=== PATIENT | female | born 1970 ===

== ENCOUNTER 2020-05-09 18:42 | Outpatient (REF) | payer OTHER, SELFPAY ==
--- NOTE | 2020-05-09 18:52 | MR_ITS ---
EXAMINATION: MR KNEE WITHOUT CONTRAST, LEFT CLINICAL INFORMATION: Bilateral primary osteoarthritis of knee. Patient reports bilateral knee pain, instability, swelling, stiffness, no recent injury, and previous meniscus surgery in both knees greater than 10 years ago. COMPARISON: XR left knee 09/26/2019. TECHNIQUE: MRI of the knee without contrast was performed using routine sequences on a high-field scanner. FINDINGS: MENISCI: Medial Meniscus: Intact. Lateral Meniscus: There is minor fraying of the free edge of the body of the lateral meniscus. There is some degenerative intrasubstance signal at the anterior horn/root junction of the lateral meniscus, this includes some linear areas of degenerative signal as well as a possible linear tear extending to the superior surface. This appears to be associated with a small multiloculated parameniscal cyst. There are additional small clustered cysts anterior to the anterior horn extending anterolaterally which could represent extension of parameniscal cyst. LIGAMENTS: Cruciate: Intact. Collateral: Intact. EXTENSOR MECHANISM: Intact. ARTICULAR CARTILAGE/BONE: Patellofemoral Compartment: There is a small focal area of moderate cartilage irregularity and thinning at the junction of the apex and lateral facet of the patella with minor underlying cystic change. There are scattered patchy areas of cartilage surface irregularity in the femoral trochlea with a small focal area of moderate cartilage thinning in the lateral femoral trochlea. Medial Compartment: There are focal areas of mild cartilage surface irregularity and thinning in the medial weightbearing portion of the medial compartment. There is a superiorly projecting posterior osteophyte involving the medial tibial plateau posterior to the posterior horn/root junction of the medial meniscus. Lateral Compartment: There is mild cartilage thinning in the lateral weightbearing portion of the lateral femoral condyle. There is a focal area of mild cartilage thinning at the junction of the posterior weightbearing and nonweightbearing lateral femoral condyle. The lateral tibial plateau cartilage appears intact. The chondrocalcinosis identified on the prior radiographs is not evident on the MRI. JOINT FLUID AND BURSAE: Small joint effusion and small Casillas's cyst. IMPRESSION: 1. Minor fraying of the free edge of the body of the lateral meniscus. Degenerative signal and possible subtle superimposed tear at the anterior horn/root junction of the lateral meniscus. Multiloculated parameniscal cyst extending along the anterolateral meniscus. This raises the suspicion of a meniscal tear. 2. Small focal areas of moderate arthrosis at the junction of the apex and lateral facet of the patella and in the lateral femoral trochlea. 3. Focal mild arthrosis in the medial weightbearing portion of the medial compartment. 4. Focal areas of mild arthrosis in the lateral weightbearing portion of the lateral femoral condyle and the junction of the posterior weightbearing and nonweightbearing lateral femoral condyle. 5. Small joint effusion and small Casillas's cyst.
--- NOTE | 2020-05-09 18:54 | MR_ITS ---
EXAMINATION: MR KNEE WITHOUT CONTRAST, RIGHT CLINICAL INFORMATION: Bilateral primary osteoarthritis of knee. Bilateral knee pain, instability, swelling, stiffness, no recent injury, and prior meniscus surgery on both knees greater than 10 years ago. COMPARISON: XR right knee 09/26/2019. TECHNIQUE: MRI of the knee without contrast was performed using routine sequences on a high-field scanner. FINDINGS: MENISCI: Medial Meniscus: Intact Lateral Meniscus: Intact LIGAMENTS: Cruciate: Intact Collateral: Intact EXTENSOR MECHANISM: Intact ARTICULAR CARTILAGE/BONE: Patellofemoral Compartment: There is a small focal area of mild cartilage thinning in the lateral femoral trochlea with a few tiny subchondral degenerative cysts. There is a suggestion of mild cartilage surface irregularity in the central apex of the patella. Medial Compartment: There is mild cartilage thinning in the posterior weightbearing medial compartment. Lateral Compartment: Normal JOINT FLUID AND BURSAE: Trace joint effusion and tiny Casillas's cyst. IMPRESSION: 1. Small focal areas of mild arthrosis in the central apex of the patella and the lateral femoral trochlea. 2. Mild arthrosis in the posterior weightbearing medial compartment. 3. Trace joint effusion and tiny Casillas's cyst. 4. Intact menisci and ligaments.
== END 2020-05-09 18:43 | disposition home or self-care (01) ==
LOC: HO.MRI 18:42
PROVIDERS: PCP Internal Medicine; Visit Provider Anesthesiology
DX: M17.0 Bilateral primary osteoarthritis of knee (principal)
CPT/HCPCS: 73721

== ENCOUNTER → 2020-05-14 09:27 | Outpatient (BNVA) | payer OTHER, SELFPAY | PROVIDERS: PCP Internal Medicine; Referring Provider Internal Medicine; Visit Provider Psychiatry & Neurology Neurology | DX: G47.33 Obstructive sleep apnea (adult) (pediatric) (principal) | CPT/HCPCS: 99214 ==

== ENCOUNTER → 2020-06-10 08:32 | Outpatient (BNVA) | payer OTHER, SELFPAY | PROVIDERS: PCP Internal Medicine; Referring Provider Internal Medicine; Visit Provider Orthopaedic Surgery | DX: M17.0 Bilateral primary osteoarthritis of knee (principal); M79.7 Fibromyalgia; E11.9 Type 2 diabetes mellitus without complications | CPT/HCPCS: 20610; 99202; J1100 ==

== ENCOUNTER → 2020-09-12 09:55 | Outpatient (BNVA) | payer OTHER, SELFPAY | PROVIDERS: Visit Provider Orthopaedic Surgery | DX: M17.10 Unilateral primary osteoarthritis, unspecified knee (principal); M79.7 Fibromyalgia | CPT/HCPCS: 99212 ==

== ENCOUNTER → 2020-12-16 10:01 | Outpatient (BNVA) | payer OTHER, SELFPAY | PROVIDERS: PCP Internal Medicine; Visit Provider Internal Medicine | DX: E11.9 Type 2 diabetes mellitus without complications (principal); R42 Dizziness and giddiness | CPT/HCPCS: 82947; 99202 ==

== ENCOUNTER 2020-12-16 10:46 | Emergency (ER) | payer OTHER, SELFPAY ==
[2020-12-16 10:56] VITALS: BP 124/76; RESP 93; TEMP 36.8; O2SAT 99; BMI 28.8
--- NOTE | 2020-12-16 12:00 | ECG_ITS ---
Test Reason : WEAKNESS Blood Pressure : / mmHG Vent. Rate : 097 BPM Atrial Rate : 097 BPM P-R Int : 136 ms QRS Dur : 080 ms QT Int : 356 ms P-R-T Axes : 058 023 013 degrees QTc Int : 452 ms Normal sinus rhythm Normal ECG When compared with ECG of 07-FEB-2020 12:48, No significant change was found Referred By: Generic ED Physician Electronically Signed By:JOS RODRÍGUEZ
[2020-12-16 13:06] LABS: MANUAL DIFF FLAG NO
[2020-12-16 13:12] LABS: Basophils Absolute Auto 0.1 X10*3/uL (0.0-0.2); Basophils Percent Auto 0.3 % (0-2); Eosinophils Absolute Auto 0.3 X10*3/uL (0.0-0.4); Eosinophils Percent Auto 1.7 % (0-4); Hematocrit 49.8 % (37-47); Hemoglobin 16.6 g/dl (12.0-16.0); Imm Gran Abs Auto 0.05 X10*3/uL (0.00-0.03); Imm Gran Pct Auto 0.3 % (0.0-0.4); Lymphocytes Absolute Auto 2.2 X10*3/uL (1.2-4.9); Lymphocytes Percent Auto 14.7 % (20-40); Mean Corpuscular HGB Conc 33.3 g/dl (31.0-35.0); Mean Corpuscular Hemoglobin 26.7 pg (27.0-33.0); Mean Corpuscular Volume 80.1 fL (80-98); Mean Platelet Volume 11.2 fL (9.4-12.3); Monocytes Absolute Auto 0.6 X10*3/uL (0.1-1.2); Monocytes Percent Auto 3.9 % (2-11); Neutrophils Percent Auto 79.1 % (45-73); Platelet Count 231 X10*3/uL (160-400); Red Blood Count 6.22 X10*6/uL (4.20-5.50); Red Cell Distribution Width 13.3 % (11.0-16.0); White Blood Count 15.2 X10*3/uL (4.8-10.8)
[2020-12-16 13:39] LABS: Anion Gap 13 (12-20); Blood Urea Nitrogen 5 mg/dL (9-16); Calcium 9.8 mg/dL (8.4-10.2); Carbon Dioxide 30 mmol/L (22-29); Chloride 98 mmol/L (96-108); Creatinine Clr Calc Pharmacy 85.2; Estimated Glomerular Filt Rate > 60; Glucose Random 373 mg/dL (60-115); Potassium 4.1 mmol/L (3.3-5.1); Sodium 137 mmol/L (135-145)
--- NOTE | 2020-12-16 15:50 | ED.GENADULT ---
HPI - General Adult General Chief complaint: Dizziness Stated complaint: HIGH BLOOD SUGAR Time Seen by Provider: 12/16/20 14:06 Source: patient Mode of arrival: ambulatory Limitations: no limitations History of Present Illness HPI narrative: 50-year-old female sent from PCP office for further evaluation of high blood sugar. 50-year-old female with history of type 2 diabetes mellitus, patient is taking Trulicity/Lantus 34 units b.i.d. and on Humalog sliding scale. Patient admitted that she is not compliant with her medications. Patient overall feeling dizzy, with polyuria and polydipsia. In the emergency department patient has high blood sugar of 300 but no anion gap or no indication for DKA. Related Data Home Medications Medication Instructions Recorded Confirmed albuterol sulfate mg INHALATION TID 06/10/20 12/16/20 aspirin 81 mg tablet,delayed 81 mg PO DAILY 06/10/20 12/16/20 release atorvastatin 80 mg tablet 80 mg PO DAILY 06/10/20 12/16/20 blood-glucose meter #1 ea 06/10/20 12/16/20 cyclobenzaprine 10 mg tablet 10 mg PO TID 06/10/20 12/16/20 dulaglutide 0.75 mg/0.5 mL 0.75 mg SUBCUT QWEEK 06/10/20 12/16/20 subcutaneous pen injector duloxetine 20 mg capsule,delayed 20 mg PO BID 06/10/20 12/16/20 release gabapentin 800 mg tablet 800 mg PO TID 06/10/20 12/16/20 risperidone 2 mg tablet 2 mg PO BEDTIME 06/10/20 12/16/20 ropinirole 0.25 mg tablet 0.25 mg PO DAILY 06/10/20 12/16/20 sitagliptin 50 mg-metformin 1,000 1 tab PO BID 06/10/20 12/16/20 mg tablet topiramate 50 mg tablet 50 mg PO BID 06/10/20 12/16/20 varenicline 1 mg tablet 1 mg PO BID 06/10/20 12/16/20 blood sugar diagnostic #10 ea 12/16/20 12/16/20 cariprazine 4.5 mg capsule 4.5 mg PO DAILY 12/16/20 12/16/20 fluticasone propionate 110 110 mcg INHALATION ONCE PRN g 05/24/21 05/24/21 mcg/actuation HFA aerosol inhaler insulin aspart U-100 100 unit/mL See Rx Instructions SUBCUT .COMPLEX 12/16/20 12/16/20 (3 mL) subcutaneous pen insulin glargine 100 unit/mL (3 34 unit SUBCUT Q12H 12/16/20 12/16/20 mL) subcutaneous pen lancets 28 gauge #100 ea 12/16/20 12/16/20 pen needle, diabetic 31 gauge x #50 ea 12/16/20 12/16/20 3/16 zolpidem 10 mg tablet 10 mg PO BEDTIME 12/16/20 12/16/20 Previous Rx's Medication Instructions Recorded levofloxacin 500 mg PO DAILY #10 tab 12/16/20 Allergies Allergy/AdvReac Type Severity Reaction Status Date / Time Penicillins [PENICILLINS] Allergy Intermediate HIVES Verified 12/16/20 10:30 ibuprofen Allergy Unknown unknown Verified 12/16/20 10:30 NSAIDS (Non-Steroidal AdvReac Mild STOMACH Verified 12/16/20 10:30 Anti-Inflamma UPSET [NSAIDS (NON-STEROIDAL ANTI-INFLAMMA] Review of Systems Review of Systems: All other systems are reviewed and are negative Constitutional: Reports as per HPI and Reports no additional constitutional complaints Eyes: Reports as per HPI and Reports no additional eye complaints Reports system reviewed and no additional complaints, except as documented Cardiovascular: Reports as per HPI and Reports no additional cardiovascular complaints Respiratory: Reports as per HPI and Reports no additional respiratory complaints Gastrointestinal: Reports as per HPI and Reports no additional gastrointestinal complaints Genitourinary: Reports no additional female genitourinary complaints Musculoskeletal: Reports no additional musculoskeletal complaints Skin/Breast: Reports system reviewed and no additional complaints, except as docu Psychiatric: Reports no additional psychiatric complaints Endocrine: Reports no additional endocrine complaints Hematologic/Lymphatic: Reports no additional hematologic/lymphatic complaints Allergic/Immunologic: Reports no additional allergic/immunologic complaints Reports system reviewed and no additional complaints, except as documented and Reports Abnormal speech present [facility] Past Medical History Medical History Arthritis Arthritis of knee Asthma Diabetes Fibromyalgia Gastritis High cholesterol Hypertension Migraines Restless leg syndrome Sleep apnea T2DM (type 2 diabetes mellitus) Surgical History History of carpal tunnel release History of esophagogastroduodenoscopy (EGD) Hx of arthroscopic knee surgery Hx of breast biopsy Hx of cholecystectomy Hx of fusion of cervical spine Hx of hysterectomy Family History Family History Father No problems noted. Mother HTN (hypertension) Arthritis Diabetes Social History Social History Alcohol intake: never Smoking Status: Current every day smoker Advance Directives: No Advance Directives Information Provided: Yes Patient : No Current occupational status: unemployed Current occupation: right handed Physical Exam Vital Signs: Vital Signs: Last Vital Signs Temp 98.6 F 12/16/20 15:56 Pulse 86 12/16/20 15:56 Resp 18 12/16/20 15:56 BP 136/79 12/16/20 15:56 Pulse Ox 96 12/16/20 15:56 Body Mass Index 28.8 Vital signs have been reviewed as appeared to be correct. Blood pressure normal. Heart rate normal. Respiration rate normal (correction from a nurse note respiratory rate is 13 and not 93).. Temperature normal. Oxygen saturation normal. Appearance: Alert. Oriented X3. No acute distress. Head: Normal external exam. Normocephalic. Atraumatic. No Briggs signs noted. No raccoon eyes noted Eyes: PERRLA. EOMI. Conjunctiva and sclera normal. Eyelids normal. ENT: TM's Normal. Pharynx normal. Uvula midline. Moist mucous membranes. No trismus noted. No drooling noted. No muffled voice noted. Neck: Normal inspection. Neck supple. FROM. No adenopathy. Thyroid Normal. No meningeal signs. No neck mass noted. CVS: Normal heart rate and rhythm. Heart sound normal. No murmurs noted. Pulses normal throughout. Respiratory: No respiratory distress. Painless inspiration. Breath sounds normal. No wheezes/rales/rhonchi noted. Chest nontender. No accessory muscle usage noted or decreased air movement noted. Abdomen: Soft and nontender. Bowel sounds normal in all 4 quadrants. No distention noted. No organomegaly noted. No visible injury noted. Back: No CVA tenderness. Full range of motion noted. Skin: Skin warm and dry. Normal skin color. Normal skin turgor. No rashes/lesions/lacerations noted. Extremities: No lower extremity edema. Extremities exhibit normal range of motion. Extremities nontender. Neuro: Oriented X 3. No motor deficit. No sensory deficit. Reflexes normal. Course Course Course Narrative: Type 2 diabetes non compliant with her medication, presented with hyperglycemia. No DKA. Patient was given subcu insulin. Patient was instructed to use her medication as instructed at home. Start the patient on Levaquin for mild UTI. Medical Decision Making Lab Data Lab results reviewed: Yes I reviewed the patient's lab results. Result diagrams: 12/16/20 12:57 12/16/20 12:57 Labs: Lab Results 12/16/20 12/16/20 12/16/20 Range/Units 12:57 12:57 15:58 WBC 15.2 H (4.8-10.8) X10*3/uL RBC 6.22 H (4.20-5.50) X10*6/uL Hgb 16.6 H (12.0-16.0) g/dl Hct 49.8 H (37-47) % MCV 80.1 (80-98) fL MCH 26.7 L (27.0-33.0) pg MCHC 33.3 (31.0-35.0) g/dl RDW 13.3 (11.0-16.0) % Plt Count 231 (160-400) X10*3/uL MPV 11.2 (9.4-12.3) fL Immature Gran % (Auto) 0.3 (0.0-0.4) % Neut % (Auto) 79.1 H (45-73) % Lymph % (Auto) 14.7 L (20-40) % Shoshone % (Auto) 3.9 (2-11) % Eos % (Auto) 1.7 (0-4) % Baso % (Auto) 0.3 (0-2) % Lymph # (Auto) 2.2 (1.2-4.9) X10*3/uL [place]oshone # (Auto) 0.6 (0.1-1.2) X10*3/uL Eos # (Auto) 0.3 (0.0-0.4) X10*3/uL Baso # (Auto) 0.1 (0.0-0.2) X10*3/uL Abs Immat Gran (auto) 0.05 H (0.00-0.03) X10*3/uL Absolute Neuts (auto) 12.0 H (2.0-8.3) X10*3/uL Absolute Nucleated RBC 0.000 (0.0-0.012) X10*3/uL Nucleated RBC % (auto) 0.0 (0.0-0.2) /100WBC Sodium 137 (135-145) mmol/L Potassium 4.1 (3.3-5.1) mmol/L Chloride 98 (96-108) mmol/L Carbon Dioxide 30 H (22-29) mmol/L Anion Gap 13 (12-20) BUN 5 L (9-16) mg/dL Creatinine 0.80 (0.5-1.4) mg/dL Estim Creat Clear Calc 85.2 Estimated GFR > 60 Random Glucose 373 H* (60-115) mg/dL Calcium 9.8 (8.4-10.2) mg/dL Urine Color YELLOW Urine Appearance CLOUDY Urine pH 6.0 (5.0-8.0) Ur Specific [place] 1.025 (1.005-1.025) Urine Protein TRACE (NEG-TRACE) MG/DL Urine Glucose (UA) >=1000 H (NEG) MG/DL Urine Ketones 40 (NEG) MG/DL Urine Blood TRACE (NEG) Urine Nitrite POS H (NEG) Ur Leukocyte Esterase NEG (NEG) Discharge Plan Discharge Clinical Impression: Acute hyperglycemia T2DM (type 2 diabetes mellitus) Qualifiers: Diabetes 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 Urinary tract infection Qualifiers: Urinary tract infection type: acute cystitis Hematuria presence: without hematuria Qualified Code(s): N30.00 - Acute cystitis without hematuria Instructions: Diabetic Hyperglycemia (ED) Prescriptions: New levofloxacin 500 mg tablet 500 mg PO DAILY Qty: 10 RF: 0 No Action gabapentin 800 mg tablet 800 mg PO TID RF: 0 topiramate 50 mg tablet 50 mg PO BID RF: 0 (DME) blood-glucose meter Kit See Rx Instructions ea .ROUTE .MEDSUPPLY Qty: 1 RF: 0 albuterol sulfate 2.5 mg /3 mL (0.083 %) solution for nebulization inhalation TID RF: 0 cyclobenzaprine 10 mg tablet 10 mg PO TID RF: 0 aspirin 81 mg tablet,delayed release (DR/EC) 81 mg PO DAILY RF: 0 atorvastatin 80 mg tablet 80 mg PO DAILY RF: 0 ropinirole 0.25 mg tablet 0.25 mg PO DAILY RF: 0 risperidone 2 mg tablet 2 mg PO BEDTIME RF: 0 Janumet 50-1,000 mg tablet 1 tab PO BID RF: 0 Chantix 1 mg tablet 1 mg PO BID RF: 0 Trulicity 0.75 mg/0.5 mL pen injector 0.75 mg subcut QWEEK RF: 0 duloxetine [Cymbalta] 20 mg capsule,delayed release(DR/EC) 20 mg PO BID RF: 0 zolpidem 10 mg tablet 10 mg PO BEDTIME RF: 0 fluticasone propionate 110 mcg/actuation HFA aerosol inhaler 110 mcg inhalation ONCE PRNRF: 0 insulin aspart U-100 100 unit/mL (3 mL) insulin pen See Rx Instructions subcut .COMPLEX RF: 0 Lantus Solostar U-100 Insulin 100 unit/mL (3 mL) insulin pen 34 unit subcut Q12H RF: 0 Vraylar 4.5 mg capsule 4.5 mg PO DAILY RF: 0 (DME) FreeStyle Lite Strips Strip See Rx Instructions .ROUTE .MEDSUPPLY Qty: 10 RF: 0 (DME) lancets 28 gauge misc See Rx Instructions ea topical TID Qty: 100 RF: 0 (DME) pen needle, diabetic 31 gauge x 3/16 needle See Rx Instructions ea .ROUTE .MEDSUPPLY Qty: 50 RF: 0 Referrals: Brenda Tovar MD [Primary Care Provider] - 2 days
[2020-12-16 15:56] VITALS: BP 136/79; PULSE 86; RESP 18; TEMP 37; O2SAT 96
[2020-12-16] MEDS: Insulin Regular, Human 100 UNIT/ML 3 ML VIAL 10 UNIT SUBCUT (15:56)
[2020-12-16 16:05] LABS: Appearance Urine CLOUDY; Color Urine YELLOW; Glucose Urine UA >=1000 MG/DL (NEG); Leukocyte Esterase Urine NEG (NEG); Nitrite Urine POS (NEG); Specific Gravity - Urine 1.025 (1.005-1.025); UACC Culture Trigger YES; Urine Blood TRACE (NEG); Urine Ketones 40 MG/DL (NEG); Urine Protein TRACE MG/DL (NEG-TRACE)
[2020-12-16 16:17] LABS: Bacteria Urine 3+ /LPF; Squamous Epithelial Cell Urine 2+ /LPF
[2020-12-16 16:18] LABS: Mucus Urine TRACE /LPF
[2020-12-16 17:40] LABS: Glucose, Whole Blood 275 mg/dL (60-115)
[2020-12-16 18:00] VITALS: BP 120/75; PULSE 81; RESP 16; TEMP 36.8; O2SAT 96
== END 2020-12-16 19:25 | disposition home or self-care (01) ==
PROVIDERS: Emergency Provider Emergency Medicine; PCP Internal Medicine
DX: R42 Dizziness and giddiness (principal); E11.65 Type 2 diabetes mellitus with hyperglycemia; N30.00 Acute cystitis without hematuria; I10 Essential (primary) hypertension; Z79.4 Long term (current) use of insulin; Z91.14 Patient's other noncompliance with medication regimen
CPT/HCPCS: 36415; 80048; 81001; 81003; 82947; 85025; 87086; 87088; 87147; 87186; 93005; 96361; 96374; 99284; 99285

== ENCOUNTER 2021-03-29 08:14 | Emergency (ER) | payer OTHER, SELFPAY ==
--- NOTE | ~2021-03-29 | XR_ITS ---
EXAMINATION: XR CHEST CLINICAL INFORMATION: Chest pain COMPARISON: 02/07/2020 x-ray TECHNIQUE: Frontal view of the chest was obtained. FINDINGS: The cardiomediastinal silhouette is within normal limits. The lungs are well expanded. There is no focal consolidation, edema, or effusion. No pneumothorax. No acute osseous abnormality. Hardware in the lower cervical spine. XR/XR chest 1V IMPRESSION: No evidence of acute pulmonary process.
--- NOTE | 2021-03-29 07:41 | ECG_ITS ---
Test Reason : CP Blood Pressure : / mmHG Vent. Rate : 091 BPM Atrial Rate : 091 BPM P-R Int : 120 ms QRS Dur : 084 ms QT Int : 390 ms P-R-T Axes : 057 049 017 degrees QTc Int : 479 ms Normal sinus rhythm Normal ECG When compared with ECG of 16-DEC-2020 12:52, No significant change was found Referred By: Miracle Gay Electronically Signed By:WENDY VELASCO
[2021-03-29 08:14] VITALS: BP 153/82; PULSE 99; RESP 20; TEMP 36.9; O2SAT 99; BMI 25.7
[2021-03-29 09:16] LABS: MANUAL DIFF FLAG NO
[2021-03-29 09:17] LABS: Basophils Percent Auto 0.2 % (0-2); Eosinophils Absolute Auto 0.2 X10*3/uL (0.0-0.4); Eosinophils Percent Auto 1.2 % (0-4); Hematocrit 45.4 % (37-47); Hemoglobin 15.1 g/dl (12.0-16.0); Imm Gran Abs Auto 0.04 X10*3/uL (0.00-0.03); Imm Gran Pct Auto 0.3 % (0.0-0.4); Lymphocytes Absolute Auto 2.6 X10*3/uL (1.2-4.9); Lymphocytes Percent Auto 20.7 % (20-40); Mean Corpuscular HGB Conc 33.3 g/dl (31.0-35.0); Mean Corpuscular Hemoglobin 26.7 pg (27.0-33.0); Mean Corpuscular Volume 80.4 fL (80-98); Mean Platelet Volume 10.4 fL (9.4-12.3); Monocytes Absolute Auto 0.6 X10*3/uL (0.1-1.2); Neutrophils Absolute Auto 9.2 X10*3/uL (2.0-8.3); Neutrophils Percent Auto 72.6 % (45-73); Platelet Count 234 X10*3/uL (160-400); Red Blood Count 5.65 X10*6/uL (4.20-5.50); Red Cell Distribution Width 13.1 % (11.0-16.0); White Blood Count 12.6 X10*3/uL (4.8-10.8)
[2021-03-29 09:40] LABS: Troponin-I High Sensitivity 5.5 ng/L (<3.5-17.0)
--- NOTE | 2021-03-29 09:54 | ED_ITS ---
HPI - Chest Pain General Chief Complaint: Chest Pain Stated Complaint: CHEST PAIN Time Seen by Provider: 03/29/21 09:39 Source: patient Mode of arrival: ambulatory History of Present Illness HPI narrative: 50-year-old female with a past medical history of asthma, diabetes, fibromyalgia, hyperlipidemia, HTN, restless leg, sleep apnea, prese nting to the ED complaining of substernal chest pressure radiating down left upper extremity since 3:00 a.m. Pain described as pressure/tightness and sharp. Denies similar symptoms in the past. States pain prevented her from sleeping. Denies fever, cough, SOB, nausea/vomiting, numbness, tingling, LE edema, recent travel MD complaint: chest pain and chest discomfort Related Data Home Medications Medication Instructions Recorded Confirmed albuterol sulfate mg INHALATION TID 06/10/20 12/16/20 aspirin 81 mg tablet,delayed 81 mg PO DAILY 06/10/20 12/16/20 release atorvastatin 80 mg tablet 80 mg PO DAILY 06/10/20 12/16/20 blood-glucose meter #1 ea 06/10/20 12/16/20 cyclobenzaprine 10 mg tablet 10 mg PO TID 06/10/20 12/16/20 dulaglutide 0.75 mg/0.5 mL 0.75 mg SUBCUT QWEEK 06/10/20 12/16/20 subcutaneous pen injector (Trulicity) duloxetine 20 mg capsule,delayed 20 mg PO BID 06/10/20 12/16/20 release (Cymbalta) gabapentin 800 mg tablet 800 mg PO TID 06/10/20 12/16/20 risperidone 2 mg tablet 2 mg PO BEDTIME 06/10/20 12/16/20 ropinirole 0.25 mg tablet 0.25 mg PO DAILY 06/10/20 12/16/20 sitagliptin 50 mg-metformin 1,000 1 tab PO BID 06/10/20 12/16/20 mg tablet (Janumet) topiramate 50 mg tablet 50 mg PO BID 06/10/20 12/16/20 varenicline 1 mg tablet (Chantix) 1 mg PO BID 06/10/20 12/16/20 blood sugar diagnostic (FreeStyle #10 ea 12/16/20 12/16/20 Lite Strips) cariprazine 4.5 mg capsule 4.5 mg PO DAILY 12/16/20 12/16/20 fluticasone propionate 110 110 mcg INHALATION ONCE PRN g 12/16/20 12/16/20 mcg/actuation HFA aerosol inhaler insulin aspart U-100 100 unit/mL See Rx Instructions SUBCUT .COMPLEX 12/16/20 12/16/20 (3 mL) subcutaneous pen insulin glargine 100 unit/mL (3 34 unit SUBCUT Q12H 12/16/20 12/16/20 mL) subcutaneous pen lancets 28 gauge #100 ea 12/16/20 12/16/20 pen needle, diabetic 31 gauge x #50 ea 12/16/20 12/16/20 3/16 zolpidem 10 mg tablet 10 mg PO BEDTIME 12/16/20 12/16/20 Previous Rx's Medication Instructions Recorded levofloxacin 500 mg tablet 500 mg PO DAILY #10 tab 12/16/20 nitrofurantoin 100 mg PO BID #14 cap 01/01/21 monohydrate/macrocrystals 100 mg capsule (Macrobid) Allergies Allergy/AdvReac Type Severity Reaction Status Date / Time Penicillins [PENICILLINS] Allergy Intermediate HIVES Verified 12/16/20 10:30 ibuprofen Allergy Unknown unknown Verified 12/16/20 10:30 NSAIDS (Non-Steroidal AdvReac Mild STOMACH Verified 12/16/20 10:30 Anti-Inflamma UPSET [NSAIDS (NON-STEROIDAL ANTI-INFLAMMA] Review of Systems Review of Systems: Constitutional: No Fever, No Chills, No Fatigue, No Malaise ENT/Mouth: No Ear Pain, No Nasal Congestion, No sore throat Eyes: No Eye Pain, No Swelling Cardiovascular: + Chest Pain, No SOB, No Dyspnea on Exertion, No Orthopnea, No Edema, No Palpitations Respiratory: No Cough, No Dyspnea Gastrointestinal: No Nausea, No Vomiting, No Diarrhea, No Constipation, No Abd ominal pain Genitourinary:No Dysuria, No Hematuria, No Flank Pain Musculoskeletal: No joint pain, No Myalgias, No Joint Swelling Skin: No Skin Lesions, No rash Neuro: No Weakness, No Numbness, No Paresthesias, No Headache Yes all other systems are reviewed and are negative [facility] Past Medical History Attestation statement: The following information was validated with the patient. Medical History Arthritis Arthritis of knee Asthma Diabetes Fibromyalgia Gastritis High cholesterol Hypertension Migraines Restless leg syndrome Sleep apnea T2DM (type 2 diabetes mellitus) Surgical History History of carpal tunnel release History of esophagogastroduodenoscopy (EGD) Hx of arthroscopic knee surgery Hx of breast biopsy Hx of cholecystectomy Hx of fusion of cervical spine Hx of hysterectomy Family History Family History Father No problems noted. Mother HTN (hypertension) Arthritis Diabetes Social History Social History Alcohol intake: never Patient Tobacco Use Status: Current everyday Tobacco user Use of substances other than those prescribed or required for medical reasons: No Advance Directives: Yes Advance Directives Information Provided: Yes Advance Directives on File: No Patient : No Current occupational status: unemployed Current occupation: right handed Physical Exam Vital Signs: Vital Signs: Last Vital Signs Temp 98.9 F 03/29/21 12:00 Pulse 85 03/29/21 12:00 Resp 18 03/29/21 12:00 BP 149/70 H 03/29/21 12:00 Pulse Ox 99 03/29/21 12:00 Body Mass Index 25.7 Const: Other: Anxious General: cooperative, healthy appearing, no acute distress, alert and awake Orientation/consciousness: patient oriented x3 Limitations: no limitations HENMT: Head: Yes normal to inspection Ears: hearing grossly normal bilaterally General nose exam: Normal external nose present Face and sinus: Yes normal facial exam Eyes: General: appearance normal, both eyes and all related structures EOM: EOMs intact bilaterally Neck: Neck: Yes normal visual inspection Resp: Effort & Inspection: normal respiratory effort Auscultation: clear to auscultation bilaterally, no rales, no rhonchi and no wheezes Cardio: Rate: regular rate Heart sounds: S1 normal heart sound present and S2 normal heart sound present GI: Inspection: Yes normal to inspection Palpation (GI): Soft to palpation, nontender, no guarding and not rigid Skin: Rashes: no rashes Wounds: no wounds Neuro: General: patient oriented x3 Extrem: General: Yes normal to inspection, Yes no pedal edema and Yes no calf tenderness Course Course Course Narrative: -1041--mild leukocytosis of 12.6 which appears chronic. H&H is stable. Initial troponin 5.5 > will obtain 3 hour repeat -1249--repeat troponin without 50% rise, MT unlikely. Results discussed with patient including worrisome signs and symptoms and strict return precautions. She verbalized understanding feel safe for discharge home to follow-up with PCP XR chest 1V IMPRESSION: No evidence of acute pulmonary process. MDM - Chest Pain MDM Narrative Medical decision making narrative: 50-year-old female with a past medical history of asthma, diabetes, fibromyalgia, hyperlipidemia, HTN, restless leg, sleep apnea, presenting to the ED complaining of substernal chest pressure radiating down left upper extremity since 3:00 a.m. On exam VSS, NAD, well appearing, anxious. R/o ACS. Symptoms atypical for PE/CHF or pneumonia Plan: EKG, CXR, labs Medical Records Data Attestation: I reviewed the patient's medical records. Lab Data Attestation: I reviewed the patient's lab results. Result diagrams: 03/29/21 09:11 03/29/21 09:53 Labs: Lab Results 03/29/21 03/29/21 03/29/21 Range/Units 09:11 09:11 09:53 WBC 12.6 H (4.8-10.8) X10*3/uL RBC 5.65 H (4.20-5.50) X10*6/uL Hgb 15.1 (12.0-16.0) g/dl Hct 45.4 (37-47) % MCV 80.4 (80-98) fL MCH 26.7 L (27.0-33.0) pg MCHC 33.3 (31.0-35.0) g/dl RDW 13.1 (11.0-16.0) % Plt Count 234 (160-400) X10*3/uL MPV 10.4 (9.4-12.3) fL Immature Gran % (Auto) 0.3 (0.0-0.4) % Neut % (Auto) 72.6 (45-73) % Lymph % (Auto) 20.7 (20-40) % [place] % (Auto) 5.0 (2-11) % Eos % (Auto) 1.2 (0-4) % Baso % (Auto) 0.2 (0-2) % Lymph # (Auto) 2.6 (1.2-4.9) X10*3/uL [place] # (Auto) 0.6 (0.1-1.2) X10*3/uL Eos # (Auto) 0.2 (0.0-0.4) X10*3/uL Baso # (Auto) 0.0 (0.0-0.2) X10*3/uL Abs Immat Gran (auto) 0.04 H (0.00-0.03) X10*3/uL Absolute Neuts (auto) 9.2 H (2.0-8.3) X10*3/uL Absolute Nucleated RBC 0.000 (0.0-0.012) X10*3/uL Nucleated RBC % (auto) 0.0 (0.0-0.2) /100WBC Sodium 141 (135-145) mmol/L Potassium 3.4 (3.3-5.1) mmol/L Chloride 102 (96-108) mmol/L Carbon Dioxide 30 H (22-29) mmol/L Anion Gap 12 (12-20) BUN 4 L (9-16) mg/dL Creatinine 0.62 (0.5-1.4) mg/dL Estim Creat Clear Calc 104.4 Estimated GFR > 60 Random Glucose 250 H (60-115) mg/dL Calcium 9.0 D (8.4-10.2) mg/dL Magnesium 1.6 (1.6-2.6) mg/dL Total Bilirubin 0.8 (0.0-1.0) mg/dL Direct Bilirubin 0.2 (0.0-0.5) mg/dL AST 14 (5-31) U/L ALT 11 (0-31) U/L Alkaline Phosphatase 100 (39-117) U/L Troponin I High Sens 5.5 (<3.5-17.0) ng/L Total Protein 7.0 (6.5-8.0) g/dL Albumin 4.1 (3.5-5.0) g/dL 03/29/21 03/29/21 Range/Units 09:53 12:17 WBC (4.8-10.8) X10*3/uL RBC (4.20-5.50) X10*6/uL Hgb (12.0-16.0) g/dl Hct (37-47) % MCV (80-98) fL MCH (27.0-33.0) pg MCHC (31.0-35.0) g/dl RDW (11.0-16.0) % Plt Count (160-400) X10*3/uL MPV (9.4-12.3) fL Immature Gran % (Auto) (0.0-0.4) % Neut % (Auto) (45-73) % Lymph % (Auto) (20-40) % [place] % (Auto) (2-11) % Eos % (Auto) (0-4) % Baso % (Auto) (0-2) % Lymph # (Auto) (1.2-4.9) X10*3/uL [place] # (Auto) (0.1-1.2) X10*3/uL Eos # (Auto) (0.0-0.4) X10*3/uL Baso # (Auto) (0.0-0.2) X10*3/uL Abs Immat Gran (auto) (0.00-0.03) X10*3/uL Absolute Neuts (auto) (2.0-8.3) X10*3/uL Absolute Nucleated RBC (0.0-0.012) X10*3/uL Nucleated RBC % (auto) (0.0-0.2) /100WBC Sodium (135-145) mmol/L Potassium (3.3-5.1) mmol/L Chloride (96-108) mmol/L Carbon Dioxide (22-29) mmol/L Anion Gap (12-20) BUN (9-16) mg/dL Creatinine (0.5-1.4) mg/dL Estim Creat Clear Calc Estimated GFR Random Glucose (60-115) mg/dL Calcium (8.4-10.2) mg/dL Magnesium (1.6-2.6) mg/dL Total Bilirubin (0.0-1.0) mg/dL Direct Bilirubin (0.0-0.5) mg/dL AST (5-31) U/L ALT (0-31) U/L Alkaline Phosphatase (39-117) U/L Troponin I High Sens 4.7 5.3 (<3.5-17.0) ng/L Total Protein (6.5-8.0) g/dL Albumin (3.5-5.0) g/dL Discharge Plan Discharge Clinical Impression: Chest pain Qualifiers: Chest pain type: unspecified Qualified Code(s): R07.9 - Chest pain, unspecified Patient Disposition: Home, Self-Care Instructions: Chest Pain (ED) Additional Instructions: Your blood work and chest x-ray were reassuring It is important for you to follow-up with her primary care doctor as well as Cardiology as needed If her symptoms persist or worsen, come back or are persistent, you have shortness of breath please return to the ED Prescriptions: No Action levofloxacin 500 mg tablet 500 mg PO DAILY Qty: 10 RF: 0 nitrofurantoin monohyd/m-cryst [Macrobid] 100 mg capsule 100 mg PO BID Qty: 14 RF: 0 gabapentin 800 mg tablet 800 mg PO TID RF: 0 topiramate 50 mg tablet 50 mg PO BID RF: 0 (DME) blood-glucose meter Kit See Rx Instructions ea .ROUTE .MEDSUPPLY Qty: 1 RF: 0 albuterol sulfate 2.5 mg /3 mL (0.083 %) solution for nebulization inhalation TID RF: 0 cyclobenzaprine 10 mg tablet 10 mg PO TID RF: 0 aspirin 81 mg tablet,delayed release (DR/EC) 81 mg PO DAILY RF: 0 atorvastatin 80 mg tablet 80 mg PO DAILY RF: 0 ropinirole 0.25 mg tablet 0.25 mg PO DAILY RF: 0 risperidone 2 mg tablet 2 mg PO BEDTIME RF: 0 Janumet 50-1,000 mg tablet 1 tab PO BID RF: 0 Chantix 1 mg tablet 1 mg PO BID RF: 0 Trulicity 0.75 mg/0.5 mL pen injector 0.75 mg subcut QWEEK RF: 0 duloxetine [Cymbalta] 20 mg capsule,delayed release(DR/EC) 20 mg PO BID RF: 0 zolpidem 10 mg tablet 10 mg PO BEDTIME RF: 0 fluticasone propionate 110 mcg/actuation HFA aerosol inhaler 110 mcg inhalation ONCE PRNRF: 0 insulin aspart U-100 100 unit/mL (3 mL) insulin pen See Rx Instructions subcut .COMPLEX RF: 0 Lantus Solostar U-100 Insulin 100 unit/mL (3 mL) insulin pen 34 unit subcut Q12H RF: 0 Vraylar 4.5 mg capsule 4.5 mg PO DAILY RF: 0 (DME) FreeStyle Lite Strips Strip See Rx Instructions .ROUTE .MEDSUPPLY Qty: 10 RF: 0 (DME) lancets 28 gauge misc See Rx Instructions ea topical TID Qty: 100 RF: 0 (DME) pen needle, diabetic 31 gauge x 3/16 needle See Rx Instructions ea .ROUTE .MEDSUPPLY Qty: 50 RF: 0 Referrals: Brenda Tovar MD [Primary Care Provider] - 2 days Kameron Centeno MD [Physician] - 1 week
[2021-03-29] MEDS: LORazepam 0.5 MG TABLET PO (10:00)
[2021-03-29 10:05] VITALS: BP 146/79; PULSE 78; PULSE 80; RESP 20; TEMP 37.2; O2SAT 99
[2021-03-29 10:19] LABS: Troponin-I High Sensitivity 4.7 ng/L (<3.5-17.0)
[2021-03-29 10:22] LABS: Alanine Aminotransferase 11 U/L (0-31); Albumin Level 4.1 g/dL (3.5-5.0); Alkaline Phosphatase 100 U/L (39-117); Anion Gap 12 (12-20); Aspartate Amino Transferase 14 U/L (5-31); Bilirubin Direct 0.2 mg/dL (0.0-0.5); Bilirubin Total 0.8 mg/dL (0.0-1.0); Blood Urea Nitrogen 4 mg/dL (9-16); Carbon Dioxide 30 mmol/L (22-29); Chloride 102 mmol/L (96-108); Creatinine Clr Calc Pharmacy 104.4; Estimated Glomerular Filt Rate > 60; Glucose Random 250 mg/dL (60-115); Magnesium 1.6 mg/dL (1.6-2.6); Potassium 3.4 mmol/L (3.3-5.1); Sodium 141 mmol/L (135-145)
[2021-03-29 12:00] VITALS: BP 149/70; PULSE 85; RESP 18; TEMP 37.2; O2SAT 99
[2021-03-29 12:45] LABS: Troponin-I High Sensitivity 5.3 ng/L (<3.5-17.0)
== END 2021-03-29 13:05 | disposition home or self-care (01) ==
PROVIDERS: Physician Assistant; Emergency Provider Student in an Organized Health Care Education/Training Program; PCP Internal Medicine
DX: R07.9 Chest pain, unspecified (principal); E11.9 Type 2 diabetes mellitus without complications; E78.5 Hyperlipidemia, unspecified; I10 Essential (primary) hypertension; F17.210 Nicotine dependence, cigarettes, uncomplicated; Z79.82 Long term (current) use of aspirin; Z79.4 Long term (current) use of insulin
CPT/HCPCS: 36415; 71045; 80048; 80076; 83735; 84484; 85025; 93005; 99284

== ENCOUNTER → 2021-05-13 09:45 | Outpatient (REF) | payer OTHER, SELFPAY ==
--- NOTE | 2021-05-13 09:49 | CA_ITS ---
Acquisition Time: 2021-05-13 10:00:53 Total Exercise Time: 00:03:44 Test Indications: CP Medications: SEE CHART Protocol: FABIOLA Max HR: 146 BPM 86% of Pred: 168 BPM Max BP: 120/056 mmHG Max Work Load: 5.4 METS Exercise stress test with exercise 3 min 44 sec of Fabiola protocol, achieving 69% MPHR and request to stop due to sharp chest pain, She had 4/10 sharp left CP at baseline which she stated was always present, during exercise the discomfort increased to 5/10, was worse with deep inspiration and palpation of the area, without arrythmia, with normotensive response to exercise, with nondiagnostic EKG for ischemia due to suboptimal heart rate. In recovery her discomfort gradually improved back to her baseline 4/10. It remained tender to palpitation of left chest region which is atypical for angina. Test reviewed with Dr. Acevedo. Report called to ordering provider. If the sharp left CP is the reason for ETT, then atypical for angina. If she has other symptoms that are concerning for angina, can consider pharmacological nuclear stress test. Referred By: Sharee Navarro Overread By: GATO KELLY
== END ==
LOC: HO.CARD 09:45
PROVIDERS: Absent Provider Internal Medicine; PCP Internal Medicine; Visit Provider Nurse Practitioner Primary Care
DX: R07.9 Chest pain, unspecified (principal)
CPT/HCPCS: 93017

== ENCOUNTER 2021-05-30 11:45 | Outpatient (REF) | payer OTHER, SELFPAY ==
--- NOTE | ~2021-05-30 | XR_ITS ---
EXAMINATION: XR CERVICAL SPINE CLINICAL INFORMATION: Neck pain. History of cervical spine fusion. COMPARISON: None TECHNIQUE: 5 views of the cervical spine were obtained. Total of 7 images were obtained. FINDINGS: Postsurgical changes of anterior cervical fusion is noted at C5-C7 vertebral body level. The hardware appear intact. The alignment is intact. The C1-C2 alignment is intact. Mild degenerative spondylosis related changes are noted at C3-C4 and C4-C5. No evidence of any significant foraminal narrowing on either side. Posterior appendages are intact. Prespinal soft tissues are unremarkable. Both lung apices are clear. XR/XR cervical spine 4V IMPRESSION: 1. Postsurgical changes of anterior cervical fusion at C5-C7 vertebral body levels showing intact hardware and satisfactory alignment. 2. Mild degenerative spondylosis at C3-C4 and C4-C5.
== END 2021-05-30 11:46 | disposition home or self-care (01) ==
LOC: HO.XRAY 11:45
PROVIDERS: PCP Internal Medicine; Visit Provider Internal Medicine
DX: M54.2 Cervicalgia (principal)
CPT/HCPCS: 72050

== ENCOUNTER 2021-11-01 00:09 | Emergency (ER) | payer OTHER, SELFPAY ==
--- NOTE | ~2021-11-01 | XR_ITS ---
EXAMINATION: XR CHEST CLINICAL INFORMATION: Chest pain COMPARISON: 03/29/2021 TECHNIQUE: Frontal view of the chest was obtained. FINDINGS: The lungs are clear with no focal consolidation. No evidence of pneumothorax, pulmonary edema, or pleural effusions. The cardiomediastinal silhouette is unremarkable. No acute osseous findings. Fusion hardware noted in the lower cervical spine. XR/XR chest 1V IMPRESSION: No acute cardiopulmonary findings.
--- NOTE | 2021-11-01 00:15 | ECG_ITS ---
Test Reason : CP Blood Pressure : / mmHG Vent. Rate : 111 BPM Atrial Rate : 111 BPM P-R Int : 158 ms QRS Dur : 076 ms QT Int : 344 ms P-R-T Axes : 065 039 -52 degrees QTc Int : 467 ms Sinus tachycardia Septal infarct , age undetermined Possible Inferior infarct , age undetermined Abnormal ECG When compared to the previous EKG of Possible Inferior infarct is now Present Referred By: Bre Bliss Electronically Signed By:GABINO BROUSSARD MD
[2021-11-01 00:17] VITALS: BP 162/87; PULSE 118; RESP 22; TEMP 37.3; O2SAT 98; BMI 24.9
[2021-11-01 00:26] LABS: Basophils Percent Auto 0.4 % (0-2); Eosinophils Absolute Auto 0.2 X10*3/uL (0.0-0.4); Eosinophils Percent Auto 1.4 % (0-4); Hematocrit 43.5 % (37.0-47.0); Imm Gran Abs Auto 0.03 X10*3/uL (0.00-0.03); Imm Gran Pct Auto 0.3 % (0.0-0.4); Lymphocytes Absolute Auto 3.1 X10*3/uL (1.2-4.9); Lymphocytes Percent Auto 27.9 % (20-40); MANUAL DIFF FLAG NO; Mean Corpuscular HGB Conc 34.5 g/dl (31.0-35.0); Mean Corpuscular Hemoglobin 27.6 pg (27.0-33.0); Monocytes Absolute Auto 0.5 X10*3/uL (0.1-1.2); Monocytes Percent Auto 4.1 % (2-11); Neutrophils Absolute Auto 7.2 x10*3/uL (2.0-8.3); Neutrophils Percent Auto 65.9 % (45-73); Platelet Count 243 X10*3/uL (160-400); Red Blood Count 5.44 X10*6/uL (4.20-5.50); Red Cell Distribution Width 12.5 % (11.0-16.0); White Blood Count 10.9 X10*3/uL (4.8-10.8)
--- NOTE | 2021-11-01 00:36 | ED.CHESTPAIN ---
HPI - Chest Pain General Chief Complaint: Chest Pain Stated Complaint: chest pain ; detox Time Seen by Provider: 11/01/21 00:30 Source: patient Mode of arrival: ambulatory Limitations: no limitations History of Present Illness MD complaint: chest pain Onset (ago): month(s) (1) Timing of current episode: episodic Prior episodes: No Onset: associated with drug use (on cocaine binge for one month used prior to arrival ) Pain location: substernal Pain radiation: none Severity: moderate Quality: tightness Relieving factors: nothing Exacerbating factors: other (drug use) Context: other (cocaine binge) Associated symptoms: dyspnea Treatment prior to arrival: none Related Data Home Medications Medication Instructions Recorded Confirmed albuterol sulfate mg INHALATION TID 06/10/20 12/16/20 aspirin 81 mg tablet,delayed 81 mg PO DAILY 06/10/20 12/16/20 release atorvastatin 80 mg tablet 80 mg PO DAILY 06/10/20 12/16/20 blood-glucose meter #1 ea 06/10/20 12/16/20 cyclobenzaprine 10 mg tablet 10 mg PO TID 06/10/20 12/16/20 dulaglutide 0.75 mg/0.5 mL 0.75 mg SUBCUT QWEEK 06/10/20 12/16/20 subcutaneous pen injector (Trulicity) duloxetine 20 mg capsule,delayed 20 mg PO BID 06/10/20 12/16/20 release (Cymbalta) gabapentin 800 mg tablet 800 mg PO TID 06/10/20 12/16/20 risperidone 2 mg tablet 2 mg PO BEDTIME 06/10/20 12/16/20 ropinirole 0.25 mg tablet 0.25 mg PO DAILY 06/10/20 12/16/20 sitagliptin 50 mg-metformin 1,000 1 tab PO BID 06/10/20 12/16/20 mg tablet (Janumet) topiramate 50 mg tablet 50 mg PO BID 06/10/20 12/16/20 varenicline 1 mg tablet (Chantix) 1 mg PO BID 06/10/20 12/16/20 blood sugar diagnostic (FreeStyle #10 ea 12/16/20 12/16/20 Lite Strips) cariprazine 4.5 mg capsule 4.5 mg PO DAILY 12/16/20 12/16/20 fluticasone propionate 110 110 mcg INHALATION ONCE PRN g 12/16/20 12/16/20 mcg/actuation HFA aerosol inhaler insulin aspart U-100 100 unit/mL See Rx Instructions SUBCUT .COMPLEX 12/16/20 12/16/20 (3 mL) subcutaneous pen insulin glargine 100 unit/mL (3 34 unit SUBCUT Q12H 12/16/20 12/16/20 mL) subcutaneous pen lancets 28 gauge #100 ea 12/16/20 12/16/20 pen needle, diabetic 31 gauge x #50 ea 12/16/20 12/16/20/ zolpidem 10 mg tablet 10 mg PO BEDTIME 12/16/20 12/16/20 Previous Rx's Medication Instructions Recorded levofloxacin 500 mg tablet 500 mg PO DAILY #10 tab 12/16/20 nitrofurantoin 100 mg PO BID #14 cap 01/01/21 monohydrate/macrocrystals 100 mg capsule (Macrobid) Allergies Allergy/AdvReac Type Severity Reaction Status Date / Time Penicillins [PENICILLINS] Allergy Intermediate HIVES Verified 09/18/21 11:06 ibuprofen Allergy Unknown unknown Verified 09/18/21 11:06 penicillin V Allergy Unknown Verified 09/18/21 11:06 NSAIDS (Non-Steroidal AdvReac Mild STOMACH Verified 09/18/21 11:06 Anti-Inflamma UPSET [NSAIDS (NON-STEROIDAL ANTI-INFLAMMA] Review of Systems Review of Systems: Constitutional : No Weight loss, No Fever, No Chills ENT/Mouth : No sore throat, No Rhinorrhea Eyes: No Eye Pain, No Swelling Cardiovascular : pos Chest Pain, pos SOB, no Dyspnea on Exertion, No Orthopnea, No Edema, No Palpitations Respiratory : No Cough, No Sputum Gastrointestinal : no Nausea, No Vomiting, No Diarrhea, No abdominal Pain, No Hematochezia, No Melena Genitourinary : No Dysuria, No Urinary Frequency Musculoskeletal : No joint pain, No Myalgias, No Joint Swelling Skin : No Skin Lesions, No rash Neuro : No Weakness, No Numbness, No Dizziness, No Headache Psych : pos Anxiety/Panic, No Depression Heme/Lymph: No Bruising, No Lymphadenopathy Endocrine : No Polyuria, No Polydipsia All other systems reviewed and are negative PMFSH Past Medical History Attestation statement: The following information was validated with the patient. Medical History Arthritis Arthritis of knee Asthma Diabetes Fibromyalgia Gastritis High cholesterol Hypertension Migraines Restless leg syndrome Sleep apnea T2DM (type 2 diabetes mellitus) Surgical History History of carpal tunnel release History of esophagogastroduodenoscopy (EGD) Hx of arthroscopic knee surgery Hx of breast biopsy Hx of cholecystectomy Hx of fusion of cervical spine Hx of hysterectomy Family History Family History Father No problems noted. Mother HTN (hypertension) Arthritis Diabetes Social History Social History (Updated 11/01/21 @ 00:42 by Bre Bliss DO) Alcohol intake: never Patient Tobacco Use Status: Current everyday Tobacco user Substance Use Type: Crack/Cocaine Advance Directives: No Advance Directives Information Provided: Yes Current occupational status: unemployed Current occupation: right handed Physical Exam Vital Signs: Vital Signs: Last Vital Signs Temp 99.1 F 11/01/21 00:17 Pulse 79 11/01/21 02:31 Resp 13 11/01/21 02:31 BP 132/72 11/01/21 02:31 Pulse Ox 97 11/01/21 02:31 BMI result Body Mass Index 24.9 Appearance: Alert. Oriented X3. No acute distress. Anxious, sniffing a lot Eyes: Pupils equal, round and reactive to light. ENT: Pharynx normal. Neck: Normal inspection. Neck supple. CVS: Normal heart rate and rhythm. Pulses normal. Respiratory: No respiratory distress. Breath sounds normal. Abdomen: Soft and non-tender. Skin: Skin warm and dry. Normal skin color. Normal skin turgor. Extremities: No lower extremity edema. No calf ttp Neuro: Oriented X 3. No motor deficit. No sensory deficit. Course Course Course Narrative: EKG improved - now that HR is down patient feels much better repeat trop negative EKG nonischemic symptoms resolved now has SI will send to pod at this time for BHN Physician observation started at 359am. Patient placed in physician observation because the patient needed more time for BHN to assess the need for psych admission. At the time observation was started the patient's vitals were stable, patient is alert and oriented , Neuro: nonfocal, CV RRR, Lungs clear MDM - Chest Pain MDM Narrative Medical decision making narrative: 51 yo female with hx of DM, arthritis, MALLIKA on a cocaine binge snorting for the last month has had chest pain every time she uses - at this time she has had chest pain almost all day today and used prior to arrival she has some subtle depressions on ECG - will obtain troponin x 2, repeat EKG, IV ativan, PO aspirin, CXR. She wants to stop and is asking for help with detox. If EKG changes persist she will need admission for further workup. Lab Data Result diagrams: 11/01/21 00:21 11/01/21 00:21 Labs: Lab Results 11/01/21 11/01/21 11/01/21 Range/Units 00:21 00:21 00:21 WBC 10.9 H (4.8-10.8) X10*3/uL RBC 5.44 (4.20-5.50) X10*6/uL Hgb 15.0 (12.0-16.0) g/dl Hct 43.5 (37.0-47.0) % MCV 80.0 (80.0-98.0) fL MCH 27.6 (27.0-33.0) pg MCHC 34.5 (31.0-35.0) g/dl RDW 12.5 (11.0-16.0) % Plt Count 243 (160-400) X10*3/uL MPV 11.0 (9.4-12.3) fL Immature Gran % (Auto) 0.3 (0.0-0.4) % Neut % (Auto) 65.9 (45-73) % Lymph % (Auto) 27.9 (20-40) % [place] % (Auto) 4.1 (2-11) % Eos % (Auto) 1.4 (0-4) % Baso % (Auto) 0.4 (0-2) % Lymph # (Auto) 3.1 (1.2-4.9) X10*3/uL [place] # (Auto) 0.5 (0.1-1.2) X10*3/uL Eos # (Auto) 0.2 (0.0-0.4) X10*3/uL Baso # (Auto) 0.0 (0.0-0.2) X10*3/uL Abs Immat Gran (auto) 0.03 (0.00-0.03) X10*3/uL Absolute Neuts (auto) 7.2 (2.0-8.3) x10*3/uL Absolute Nucleated RBC 0.000 (0.0-0.012) X10*3/uL Nucleated RBC % (auto) 0.0 (0.0-0.2) /100WBC Sodium 136 (135-145) mmol/L Potassium 3.3 (3.3-5.1) mmol/L Chloride 97 (96-108) mmol/L Carbon Dioxide 27 (22-29) mmol/L Anion Gap 15 (12-20) BUN 4 L (9-16) mg/dL Creatinine 0.81 (0.5-1.4) mg/dL Estim Creat Clear Calc 75.1 Estimated GFR > 60 Random Glucose 351 H* (60-115) mg/dL Calcium 9.7 D (8.4-10.2) mg/dL Troponin I High Sens < 3.5 (<3.5-17.0) ng/L Ethyl Alcohol mg/dL 11/01/21 11/01/21 Range/Units 00:21 03:31 WBC (4.8-10.8) X10*3/uL RBC (4.20-5.50) X10*6/uL Hgb (12.0-16.0) g/dl Hct (37.0-47.0) % MCV (80.0-98.0) fL MCH (27.0-33.0) pg MCHC (31.0-35.0) g/dl RDW (11.0-16.0) % Plt Count (160-400) X10*3/uL MPV (9.4-12.3) fL Immature Gran % (Auto) (0.0-0.4) % Neut % (Auto) (45-73) % Lymph % (Auto) (20-40) % [place] % (Auto) (2-11) % Eos % (Auto) (0-4) % Baso % (Auto) (0-2) % Lymph # (Auto) (1.2-4.9) X10*3/uL [place] # (Auto) (0.1-1.2) X10*3/uL Eos # (Auto) (0.0-0.4) X10*3/uL Baso # (Auto) (0.0-0.2) X10*3/uL Abs Immat Gran (auto) (0.00-0.03) X10*3/uL Absolute Neuts (auto) (2.0-8.3) x10*3/uL Absolute Nucleated RBC (0.0-0.012) X10*3/uL Nucleated RBC % (auto) (0.0-0.2) /100WBC Sodium (135-145) mmol/L Potassium (3.3-5.1) mmol/L Chloride (96-108) mmol/L Carbon Dioxide (22-29) mmol/L Anion Gap (12-20) BUN (9-16) mg/dL Creatinine (0.5-1.4) mg/dL Estim Creat Clear Calc Estimated GFR Random Glucose (60-115) mg/dL Calcium (8.4-10.2) mg/dL Troponin I High Sens 4.0 (<3.5-17.0) ng/L Ethyl Alcohol < 10 mg/dL ECG Data ECG #1: Attestation: I personally reviewed and interpreted this ECG as follows: ECG interpretation date: 11/01/21 ECG interpretation time: 00:37 Interpretation: Rate: 111 Rhythm: sinus tachycardia [place]: normal Normal P waves. Normal DESTIN. Normal QRS complex. ST T wave : no MIRTHA, ST seg depression in V3-V6 qTC: normal prior studies: changed from 2011 The study has been interpreted contemporaneously by me. . ECG #2: Attestation: I personally reviewed and interpreted this ECG as follows: ECG interpretation date: 11/01/21 ECG interpretation time: 03:25 Interpretation: Rate: 70 Rhythm: NSR [place]: normal Normal P waves. Normal DESTIN. Normal QRS complex. ST T wave : normal no MIRTHA qTC: normal prior studies: improved - depressions resolved The study has been interpreted contemporaneously by me. . Discharge Plan Discharge Clinical Impression: Chest pain, Cocaine abuse, Suicidal ideation Patient Disposition: Still a Patient Prescriptions: No Action levofloxacin 500 mg tablet 500 mg PO DAILY Qty: 10 0RF nitrofurantoin monohyd/m-cryst [Macrobid] 100 mg capsule 100 mg PO BID Qty: 14 0RF Rx Instructions: must administer with a meal/food gabapentin 800 mg tablet 800 mg PO TID 0RF topiramate 50 mg tablet 50 mg PO BID 0RF (DME) blood-glucose meter Kit See Rx Instructions ea .ROUTE .MEDSUPPLY Qty: 1 0RF Rx Instructions: As directed albuterol sulfate 2.5 mg /3 mL (0.083 %) solution for nebulization inhalation TID 0RF cyclobenzaprine 10 mg tablet 10 mg PO TID 0RF aspirin 81 mg tablet,delayed release (DR/EC) 81 mg PO DAILY 0RF atorvastatin 80 mg tablet 80 mg PO DAILY 0RF ropinirole 0.25 mg tablet 0.25 mg PO DAILY 0RF risperidone 2 mg tablet 2 mg PO BEDTIME 0RF Janumet 50-1,000 mg tablet 1 tab PO BID 0RF Chantix 1 mg tablet 1 mg PO BID 0RF Trulicity 0.75 mg/0.5 mL pen injector 0.75 mg subcut QWEEK 0RF duloxetine [Cymbalta] 20 mg capsule,delayed release(DR/EC) 20 mg PO BID 0RF zolpidem 10 mg tablet 10 mg PO BEDTIME 0RF fluticasone propionate 110 mcg/actuation HFA aerosol inhaler 110 mcg inhalation ONCE PRN0RF insulin aspart U-100 100 unit/mL (3 mL) insulin pen See Rx Instructions subcut .COMPLEX 0RF Rx Instructions: Sliding scale subcut; Lantus Solostar U-100 Insulin 100 unit/mL (3 mL) insulin pen 34 unit subcut Q12H 0RF Vraylar 4.5 mg capsule 4.5 mg PO DAILY 0RF (DME) FreeStyle Lite Strips Strip See Rx Instructions .ROUTE .MEDSUPPLY Qty: 10 0RF Rx Instructions: As directed (DME) lancets 28 gauge misc See Rx Instructions ea topical TID Qty: 100 0RF Rx Instructions: As directed (DME) pen needle, diabetic 31 gauge x 3/16 needle See Rx Instructions ea .ROUTE .MEDSUPPLY Qty: 50 0RF Rx Instructions: As directed
[2021-11-01 00:38] LABS: Ethanol < 10 mg/dL
[2021-11-01 00:43] LABS: Anion Gap 15 (12-20); Blood Urea Nitrogen 4 mg/dL (9-16); Calcium 9.7 mg/dL (8.4-10.2); Carbon Dioxide 27 mmol/L (22-29); Chloride 97 mmol/L (96-108); Creatinine Clr Calc Pharmacy 75.1; Estimated Glomerular Filt Rate > 60; Glucose Random 351 mg/dL (60-115); Potassium 3.3 mmol/L (3.3-5.1); Sodium 136 mmol/L (135-145)
[2021-11-01 00:46] LABS: Troponin-I High Sensitivity < 3.5 ng/L (<3.5-17.0)
[2021-11-01] MEDS: Aspirin 81 MG TAB.CHEW 324 MG PO (01:00)
[2021-11-01] MEDS: Famotidine/PF 20 MG/2 ML VIAL IVPUSH (01:08)
[2021-11-01] MEDS: LORazepam 2 MG/ML VIAL 1 MG IVPUSH (01:08)
[2021-11-01 02:31] VITALS: BP 132/72; PULSE 79; RESP 13; O2SAT 97
--- NOTE | 2021-11-01 03:06 | ECG_ITS ---
Test Reason : CHEST PAIN Blood Pressure : / mmHG Vent. Rate : 070 BPM Atrial Rate : 070 BPM P-R Int : 134 ms QRS Dur : 080 ms QT Int : 386 ms P-R-T Axes : 051 015 019 degrees QTc Int : 416 ms Normal sinus rhythm Normal ECG When compared to the previous EKG of Inferior infarct is no longer Present Referred By: Bre Bliss Electronically Signed By:GABINO BROUSSARD MD
[2021-11-01] MEDS: Insulin Regular, Human 100 UNIT/ML 3 ML VIAL IVPUSH (04:11)
[2021-11-01 04:32] LABS: COVID-19 Test Negative (Negative)
[2021-11-01 05:17] LABS: Glucose, Whole Blood 202 mg/dL (60-115)
[2021-11-01 06:48] LABS: Glucose, Whole Blood 289 mg/dL (60-115)
--- NOTE | 2021-11-01 06:56 | PC.NURSE ---
Patient just got transferred from main ED after medically clearing her, patient ambulated independently, behavior non concerning, med rec completed/pending provider's approval, BHN referral completed/confirmed/pending evaluation in first shift, FREDDIE, POC at 0645 is 289, will continue to monitor.
--- NOTE | 2021-11-01 07:57 | PC.NURSE ---
patient appears to remain asleep at present, respirations are even and unlabored, patient appears in no distress
[2021-11-01] MEDS: Insulin Glargine,Hum.rec.anlog 100 UNIT/ML 10 ML VIAL 34 UNIT SUBCUT (09:44)
[2021-11-01] MEDS: Gabapentin 400 MG CAPSULE 800 MG PO ×2 (09:45→16:06)
[2021-11-01] MEDS: DULoxetine HCl 60 MG CAPSULE.DR PO (09:45)
[2021-11-01] MEDS: lisinopriL 20 MG TABLET PO (09:45)
[2021-11-01] MEDS: metFORMIN HCl ER 500 MG TAB.ER.24H 1000 MG PO (09:45)
[2021-11-01] MEDS: Cariprazine HCl 3 MG CAPSULE 6 MG PO (10:05)
[2021-11-01] MEDS: rOPINIRole HCL 0.25 MG TABLET PO (10:05)
[2021-11-01 10:12] VITALS: BP 141/69; PULSE 72; RESP 16; TEMP 36.5; O2SAT 97
[2021-11-01 13:11] LABS: Glucose, Whole Blood 346 mg/dL (60-115)
[2021-11-01] MEDS: Insulin Lispro 100 UNIT/ML 3 ML VIAL SUBCUT ×2 (13:13→18:06)
[2021-11-01 14:18] LABS: Appearance Urine CLEAR; Color Urine YELLOW; Glucose Urine UA >=1000 MG/DL (NEG); Leukocyte Esterase Urine NEG (NEG); Nitrite Urine NEG (NEG); Specific Gravity - Urine 1.015 (1.005-1.025); Urine Blood NEG (NEG); Urine Ketones 5 MG/DL (NEG); Urine Protein NEG (NEG-TRACE)
[2021-11-01 14:39] LABS: Amphetamine Screen Urine Not Detected (Not Detect); Barbiturates, Urine Not Detected (Not Detect); Benzodiazepines Screen Urine Not Detected (Not Detect); Cannabinoid Screen Urine Not Detected (Not Detect); Cocaine Screen Urine POSITIVE (Not Detect); Fentanyl, urine Not Detected (Not Detect); Opiate Screen Urine Not Detected (Not Detect); Phencyclidine Screen Urine Not Detected (Not Detect)
[2021-11-01 14:41] LABS: Mucus Urine 1+ /LPF; RBC Urine 0-2 /HPF (0); Squamous Epithelial Cell Urine TRACE /LPF; WBC Urine 0-2 /HPF (0-4)
--- NOTE | 2021-11-01 16:05 | MHC.RECOVSUP ---
Recovery Support note: Patient referred to this ad copy writer by ANA to assist patient with securing ATS bed. Patient referred to [facility] and accepted for admission. Patient to be transported via [employer] at 2000. Discussed case with RN and ED provider.
[2021-11-01] MEDS: Cyclobenzaprine HCl 10 MG TABLET PO (16:06)
[2021-11-01 18:02] LABS: Glucose, Whole Blood 173 mg/dL (60-115)
== END 2021-11-01 20:12 | disposition home or self-care (01) ==
PROVIDERS: Emergency Provider Emergency Medicine; PCP Internal Medicine
DX: R07.9 Chest pain, unspecified (principal); F14.10 Cocaine abuse, uncomplicated; R45.851 Suicidal ideations; R00.0 Tachycardia, unspecified; R06.00 Dyspnea, unspecified; Z20.822 Contact with and (suspected) exposure to COVID-19; E11.9 Type 2 diabetes mellitus without complications; I10 Essential (primary) hypertension; E78.5 Hyperlipidemia, unspecified; F17.200 Nicotine dependence, unspecified, uncomplicated; Z79.82 Long term (current) use of aspirin; Z79.02 Long term (current) use of antithrombotics/antiplatelets; Z79.4 Long term (current) use of insulin; Z79.899 Other long term (current) drug therapy
CPT/HCPCS: 36415; 71045; 80048; 80307; 81001; 82077; 82947; 84484; 85025; 87635; 93005; 96374; 96375; 99284; J2060

== ENCOUNTER 2021-11-01 20:21 | Emergency (ER) | payer OTHER, SELFPAY ==
[2021-11-01] VITALS (14 sets, daily range): BP systolic 75–104; BP diastolic 38–56; PULSE 53–69; RESP 18–20; TEMP 35.9; O2SAT 94–100; BMI 25.4
--- NOTE | ~2021-11-01 | CT_ITS ---
EXAMINATION: CT HEAD WITHOUT CONTRAST CLINICAL INFORMATION: Closed head injury COMPARISON: 02/07/2020 TECHNIQUE: Contiguous axial imaging was performed from the skull base to vertex without intravenous administration of contrast. This CT examination was performed using dose optimization techniques as appropriate, variously including the following: *Automated exposure control *Adjustment of mA and/or kV according to patient size (this includes techniques or standardized protocols for targeted exams where dose is matched to indication/reason for exam; i.e. extremities or head) *Use of iterative reconstruction technique DLP: 807 mGy-cm FINDINGS: There is no evidence of acute intracranial hemorrhage or territorial infarction. No abnormal mass effect or midline shift is seen. Strauss to white matter differentiation is well preserved. No extra-axial fluid collections are identified. The ventricles are normal in size. There is no abnormal attenuation within the brain parenchyma. The osseous structures and soft tissues are normal. Mucous retention cysts noted in the inferior left maxillary sinus. The mastoid air cells are well-aerated. CT/CT head/brain wo con IMPRESSION: No acute intracranial pathology.
--- NOTE | 2021-11-01 20:36 | ECG_ITS ---
Test Reason : HYPOTENSION Blood Pressure : / mmHG Vent. Rate : 060 BPM Atrial Rate : 060 BPM P-R Int : 132 ms QRS Dur : 086 ms QT Int : 436 ms P-R-T Axes : 027 039 043 degrees QTc Int : 436 ms Normal sinus rhythm Normal ECG When compared with ECG of 01-NOV-2021 03:14, No significant change was found Referred By: Andrés Lerma Electronically Signed By:GABINO BROUSSARD MD
--- NOTE | 2021-11-01 20:37 | ED_ITS ---
HPI - Dizziness General Chief Complaint: Fall Stated Complaint: fall - head injury Time Seen by Provider: 11/01/21 20:35 Source: patient Mode of arrival: ambulatory Limitations: no limitations History of Present Illness HPI Narrative: Patient with history of cocaine abuse, depression just discharged to go to [facility] for inpatient detox while in the waiting area patient was bending down felt lightheaded and fell down hitting her head about 2 ft from the ground. Patient complaining of increased dizziness was cold and sweaty blood pressure 76/45 pulse rate 58. Patient denies any chest pain no headache no loss of consciousness no seizures POC was 223 patient denies any chest pain or palpitation patient been feeling dizzy and feel everything spinning Related Data Home Medications Medication Instructions Recorded Confirmed aspirin 81 mg tablet,delayed 81 mg PO DAILY 06/10/20 11/01/21 release blood-glucose meter #1 ea 06/10/20 12/16/20 blood sugar diagnostic (FreeStyle #10 ea 12/16/20 12/16/20 Lite Strips) lancets 28 gauge #100 ea 12/16/20 12/16/20 pen needle, diabetic 31 gauge x #50 ea 12/16/20 12/16/2010/08 albuterol sulfate 90 mcg/actuation 2 puff PO Q4-6H PRN 11/01/21 11/01/21 aerosol inhaler atorvastatin 80 mg tablet 1 tab PO DAILY 11/01/21 11/01/21 benztropine 2 mg tablet 1 tab PO BID 11/01/21 11/01/21 cariprazine 6 mg capsule (Vraylar) 1 cap PO DAILY 11/01/21 11/01/21 cyclobenzaprine 10 mg tablet 1 tab PO TID 11/01/21 11/01/21 duloxetine 60 mg capsule,delayed 1 cap PO BID 11/01/21 11/01/21 release famotidine 40 mg tablet 1 tab PO BEDTIME 11/01/21 11/01/21 fluticasone propionate 110 2 puff PO BID 11/01/21 11/01/21 mcg/actuation HFA aerosol inhaler (Flovent HFA) gabapentin 800 mg tablet 1 tab PO TID 11/01/21 11/01/21 insulin aspart U-100 100 unit/mL 7 unit SUBCUT TID 11/01/21 11/01/21 (3 mL) subcutaneous pen (Novolog Flexpen U-100 Insulin aspart) insulin glargine 100 unit/mL (3 34 unit SUBCUT Q12H 11/01/21 11/01/21 mL) subcutaneous pen (Lantus Solostar U-100 Insulin) lisinopril 20 mg tablet 1 tab PO DAILY 11/01/21 11/01/21 metformin 500 mg tablet,extended 2 tab PO BID 11/01/21 11/01/21 release 24 hr ropinirole 0.25 mg tablet 1 tab PO DAILY 11/01/21 11/01/21 trazodone 50 mg tablet 1 tab PO BEDTIME 11/01/21 11/01/21 zolpidem 10 mg tablet 1 tab PO BEDTIME 11/01/21 11/01/21 Allergies Allergy/AdvReac Type Severity Reaction Status Date / Time Penicillins [PENICILLINS] Allergy Intermediate HIVES Verified 11/01/21 20:23 ibuprofen Allergy Unknown unknown Verified 11/01/21 20:23 penicillin V Allergy Unknown Unknown Verified 11/01/21 20:23 NSAIDS (Non-Steroidal AdvReac Mild STOMACH Verified 11/01/21 20:23 Anti-Inflamma UPSET [NSAIDS (NON-STEROIDAL ANTI-INFLAMMA] Review of Systems Review of Systems: Yes all other systems are reviewed and are negative PMFSH Past Medical History Medical History Arthritis Arthritis of knee Asthma Diabetes Fibromyalgia Gastritis High cholesterol Hypertension Migraines Restless leg syndrome Sleep apnea T2DM (type 2 diabetes mellitus) Surgical History History of carpal tunnel release History of esophagogastroduodenoscopy (EGD) Hx of arthroscopic knee surgery Hx of breast biopsy Hx of cholecystectomy Hx of fusion of cervical spine Hx of hysterectomy Family History Family History Father No problems noted. Mother HTN (hypertension) Arthritis Diabetes Social History Social History Alcohol intake: never Patient Tobacco Use Status: Current everyday Tobacco user Substance Use Type: Crack/Cocaine Advance Directives: No Advance Directives Information Provided: No Current occupational status: unemployed Current occupation: right handed Physical Exam Vital Signs: Vital Signs: Last Vital Signs Temp 96.7 F L 11/01/21 20:23 Pulse 65 11/01/21 23:29 Resp 18 11/01/21 23:29 BP 86/45 L 11/01/21 23:29 Pulse Ox 98 11/01/21 23:29 BMI result Body Mass Index 25.4 Appearance: Alert. Oriented X3. Cold and sweaty Eyes: PERRLA, No Nystagmus HEENT: Pharynx normal. Oral Mucosa moist superficial abrasion frontal part of th e scalp Neck: Normal inspection. Neck supple. CVS: Normal heart rate and rhythm. Pulses normal. Respiratory: No respiratory distress. Equal air entry bilateral, no wheezing/rales/rhonchi Abdomen: Soft and nontender. Bowel sounds are present, no mass palpable, no CVA tenderness Skin: Skin warm and dry. Normal skin color. Normal skin turgor. Extremities: No lower extremity edema. No calf tenderness Neuro: Oriented X 3. No motor deficit. No sensory deficit.No cerebellar signs , cranial nerves II-XII intact MDM - Dizziness MDM Narrative Medical decision making narrative: Patient received 2 L of IV fluids blood pressure improved still feeling dizzy blood pressure stable CT scan head is negative for any acute patient feeling much better will discharge the patient home Lab Data Attestation: I reviewed the patient's lab results. Result diagrams: 11/01/21 20:50 11/01/21 20:50 Labs: Lab Results 11/01/21 11/01/21 11/01/21 Range/Units 20:33 20:50 20:50 WBC 13.0 H (4.8-10.8) X10*3/uL RBC 4.99 (4.20-5.50) X10*6/uL Hgb 13.7 (12.0-16.0) g/dl Hct 40.5 (37.0-47.0) % MCV 81.2 (80.0-98.0) fL MCH 27.5 (27.0-33.0) pg MCHC 33.8 (31.0-35.0) g/dl RDW 12.7 (11.0-16.0) % Plt Count 252 (160-400) X10*3/uL MPV 11.2 (9.4-12.3) fL Immature Gran % (Auto) Cancelled Neut % (Auto) Cancelled Lymph % (Auto) Cancelled [place] % (Auto) Cancelled Eos % (Auto) Cancelled Baso % (Auto) Cancelled Lymph # (Auto) Cancelled [place] # (Auto) Cancelled Eos # (Auto) Cancelled Baso # (Auto) Cancelled Abs Immat Gran (auto) Cancelled Absolute Neuts (auto) Cancelled Absolute Nucleated RBC 0.000 (0.0-0.012) X10*3/uL Nucleated RBC % (auto) 0.0 (0.0-0.2) /100WBC Neutrophils % (Manual) 37 L (45-73) % Band Neutrophils % 1 L (3-5) % Lymphocytes % (Manual) 37 (20-40) % Atypical Lymphs % (Man) 19 H (0-6) % Monocytes % (Manual) 5 (2-11) % Eosinophils % (Manual) 1 (0-4) % Abs Neuts (Manual) 4.9 (2.0-8.3) X10*3/uL Lymphocytes # (Manual) 4.8 (1.2-4.9) X10*3/uL Atyp Lymphs # (Manual) 2.5 x10*3/uL Monocytes # (Manual) 0.7 (0.1-1.2) X10*3/uL Eosinophils # (Manual) 0.1 (0.0-0.4) X10*3/uL Toxic Vacuolation PRESENT Platelet Estimate NORMAL (NORMAL) Plt Morphology Comment NORMAL RBC Morphology NORMAL Smear Path Review Cancelled Sodium 139 (135-145) mmol/L Potassium 4.9 D (3.3-5.1) mmol/L Chloride 101 (96-108) mmol/L Carbon Dioxide 26 (22-29) mmol/L Anion Gap 17 (12-20) BUN 10 D (9-16) mg/dL Creatinine 0.76 (0.5-1.4) mg/dL Estim Creat Clear Calc 86.8 Estimated GFR > 60 POC Glucose 230 H (60-115) mg/dL Random Glucose 184 H (60-115) mg/dL Calcium 9.2 (8.4-10.2) mg/dL Troponin I High Sens (<3.5-17.0) ng/L 11/01/21 Range/Units 20:50 WBC (4.8-10.8) X10*3/uL RBC (4.20-5.50) X10*6/uL Hgb (12.0-16.0) g/dl Hct (37.0-47.0) % MCV (80.0-98.0) fL MCH (27.0-33.0) pg MCHC (31.0-35.0) g/dl RDW (11.0-16.0) % Plt Count (160-400) X10*3/uL MPV (9.4-12.3) fL Immature Gran % (Auto) Neut % (Auto) Lymph % (Auto) [place] % (Auto) Eos % (Auto) Baso % (Auto) Lymph # (Auto) [place] # (Auto) Eos # (Auto) Baso # (Auto) Abs Immat Gran (auto) Absolute Neuts (auto) Absolute Nucleated RBC (0.0-0.012) X10*3/uL Nucleated RBC % (auto) (0.0-0.2) /100WBC Neutrophils % (Manual) (45-73) % Band Neutrophils % (3-5) % Lymphocytes % (Manual) (20-40) % Atypical Lymphs % (Man) (0-6) % Monocytes % (Manual) (2-11) % Eosinophils % (Manual) (0-4) % Abs Neuts (Manual) (2.0-8.3) X10*3/uL Lymphocytes # (Manual) (1.2-4.9) X10*3/uL Atyp Lymphs # (Manual) x10*3/uL Monocytes # (Manual) (0.1-1.2) X10*3/uL Eosinophils # (Manual) (0.0-0.4) X10*3/uL Toxic Vacuolation Platelet Estimate (NORMAL) Plt Morphology Comment RBC Morphology Smear Path Review Sodium (135-145) mmol/L Potassium (3.3-5.1) mmol/L Chloride (96-108) mmol/L Carbon Dioxide (22-29) mmol/L Anion Gap (12-20) BUN (9-16) mg/dL Creatinine (0.5-1.4) mg/dL Estim Creat Clear Calc Estimated GFR POC Glucose (60-115) mg/dL Random Glucose (60-115) mg/dL Calcium (8.4-10.2) mg/dL Troponin I High Sens < 3.5 (<3.5-17.0) ng/L ECG Data Attestation: I personally reviewed and interpreted this ECG as follows: Interpretation: Normal sinus rhythm heart rate 60 beats per minute normal axis normal intervals no acute STT wave changes no acute ischemia impression normal EKG Discharge Plan Discharge Clinical Impression: Dizziness Patient Disposition: Home, Self-Care Instructions: Lightheadedness (ED) Additional Instructions: Drink plenty of fluids continue medications and follow up with your PCP/detox Prescriptions: No Action albuterol sulfate 90 mcg/actuation HFA aerosol inhaler 2 puff PO Q4-6H PRN (Reason: Wheezing) 0RF zolpidem 10 mg tablet 1 tab PO BEDTIME 0RF benztropine 2 mg tablet 1 tab PO BID 0RF duloxetine 60 mg capsule,delayed release(DR/EC) 1 cap PO BID 0RF Lantus Solostar U-100 Insulin 100 unit/mL (3 mL) insulin pen 34 unit subcut Q12H 0RF famotidine 40 mg tablet 1 tab PO BEDTIME 0RF Flovent HFA 110 mcg/actuation HFA aerosol inhaler 2 puff PO BID 0RF cyclobenzaprine 10 mg tablet 1 tab PO TID 0RF gabapentin 800 mg tablet 1 tab PO TID 0RF lisinopril 20 mg tablet 1 tab PO DAILY 0RF metformin 500 mg tablet extended release 24 hr 2 tab PO BID 0RF insulin aspart U-100 [Novolog Flexpen U-100 Insulin] 100 unit/mL (3 mL) insulin pen 7 unit subcut TID 0RF trazodone 50 mg tablet 1 tab PO BEDTIME 0RF Vraylar 6 mg capsule 1 cap PO DAILY 0RF atorvastatin 80 mg tablet 1 tab PO DAILY 0RF ropinirole 0.25 mg tablet 1 tab PO DAILY 0RF (DME) blood-glucose meter Kit See Rx Instructions ea .ROUTE .MEDSUPPLY Qty: 1 0RF Rx Instructions: As directed aspirin 81 mg tablet,delayed release (DR/EC) 81 mg PO DAILY 0RF (DME) FreeStyle Lite Strips Strip See Rx Instructions .ROUTE .MEDSUPPLY Qty: 10 0RF Rx Instructions: As directed (DME) lancets 28 gauge misc See Rx Instructions ea topical TID Qty: 100 0RF Rx Instructions: As directed (DME) pen needle, diabetic 31 gauge x 3/16 needle See Rx Instructions ea .ROUTE .MEDSUPPLY Qty: 50 0RF Rx Instructions: As directed Interventions: ED Discharge Assessment Last Done: 11/02/21 01:43 Discharge Date/Time: 11/02/21 01:44
[2021-11-01] MEDS: 0.9 % Sodium Chloride 1,000 ML 999 ML IV ×2 (20:49→21:19)
[2021-11-01 20:53] LABS: Glucose, Whole Blood 230 mg/dL (60-115)
[2021-11-01 21:02] LABS: Hematocrit 40.5 % (37.0-47.0); Hemoglobin 13.7 g/dl (12.0-16.0); Mean Corpuscular HGB Conc 33.8 g/dl (31.0-35.0); Mean Corpuscular Hemoglobin 27.5 pg (27.0-33.0); Mean Corpuscular Volume 81.2 fL (80.0-98.0); Mean Platelet Volume 11.2 fL (9.4-12.3); Platelet Count 252 X10*3/uL (160-400); Red Blood Count 4.99 X10*6/uL (4.20-5.50); Red Cell Distribution Width 12.7 % (11.0-16.0)
[2021-11-01 21:12] LABS: Anion Gap 17 (12-20); Blood Urea Nitrogen 10 mg/dL (9-16); Calcium 9.2 mg/dL (8.4-10.2); Carbon Dioxide 26 mmol/L (22-29); Chloride 101 mmol/L (96-108); Creatinine Clr Calc Pharmacy 86.8; Estimated Glomerular Filt Rate > 60; Glucose Random 184 mg/dL (60-115); Potassium 4.9 mmol/L (3.3-5.1); Sodium 139 mmol/L (135-145)
[2021-11-01 21:19] LABS: Troponin-I High Sensitivity < 3.5 ng/L (<3.5-17.0)
[2021-11-01 21:42] LABS: Atypical Lymph Absolute Manual 2.5 x10*3/uL; Atypical Lymphs Percent Manual 19 % (0-6); Band Neutrophils Percent 1 % (3-5); Eosinophils Absolute Manual 0.1 X10*3/uL (0.0-0.4); Eosinophils Percent Manual 1 % (0-4); Lymphocytes Absolute Manual 4.8 X10*3/uL (1.2-4.9); Lymphocytes Percent Manual 37 % (20-40); Monocytes Absolute Manual 0.7 X10*3/uL (0.1-1.2); Monocytes Percent Manual 5 % (2-11); Neutrophils Absolute Manual 4.9 X10*3/uL (2.0-8.3); Neutrophils Percent Manual 37 % (45-73)
[2021-11-01 21:53] LABS: RBC Morphology NORMAL
[2021-11-01 21:58] LABS: Platelet Estimate NORMAL (NORMAL); Toxic Vacuolation PRESENT
[2021-11-01 21:59] LABS: Platelet Morphology Comment NORMAL
[2021-11-01] MEDS: Midodrine HCl 10 MG TABLET PO (23:29)
[2021-11-02 02:01] LABS: Glucose, Whole Blood 226 mg/dL (60-115)
== END 2021-11-02 01:44 | disposition home or self-care (01) ==
PROVIDERS: Emergency Provider Internal Medicine; PCP Internal Medicine
DX: R42 Dizziness and giddiness (principal); S00.01XA Abrasion of scalp, initial encounter; W17.89XA Other fall from one level to another, initial encounter; F14.10 Cocaine abuse, uncomplicated; F32.A Depression, unspecified; F17.200 Nicotine dependence, unspecified, uncomplicated; E11.9 Type 2 diabetes mellitus without complications; Z79.4 Long term (current) use of insulin; Y93.89 Activity, other specified; Y92.238 Other place in hospital as the place of occurrence of the external cause; Y99.9 Unspecified external cause status
CPT/HCPCS: 36415; 70450; 80048; 82947; 84484; 85007; 85025; 85027; 93005; 96360; 96361; 99284

== ENCOUNTER 2021-11-03 06:53 | Emergency (ER) | payer OTHER, SELFPAY ==
[2021-11-03 06:59] VITALS: BP 177/66; PULSE 101; RESP 15; TEMP 36.9; O2SAT 94; BMI 25.4
--- NOTE | 2021-11-03 07:04 | ED.PSYCH ---
HPI - Psych General Chief Complaint: ETOH/Substance Use Stated Complaint: DETOX Time Seen by Provider: 11/03/21 07:02 Source: patient and old records reviewed Mode of arrival: ambulatory Limitations: no limitations History of Present Illness HPI Narrative: seen on 11/01 for cocaine abuse - cleared and sent to [facility] while in waiting room had near syncopal episode sent back to our ED given 2L of IVF then DC home (never got help back to detox) back today after using again at 0130 requesting detox help for cocaine abuse. She feels anxiety only and really needs help to stop using states she can't do it alone. complaint: substance abuse Onset (ago): week(s) Duration: getting worse History of same: Yes Relieving factors: none Exacerbating factors: drug use Context: recent drug abuse Associated psychiatric symptoms: depression Associated symptoms: other (anxiety) Treatments prior to arrival: none Related Data Home Medications Medication Instructions Recorded Confirmed aspirin 81 mg tablet,delayed 81 mg PO DAILY 06/10/20 11/01/21 release blood-glucose meter #1 ea 06/10/20 12/16/20 blood sugar diagnostic (FreeStyle #10 ea 12/16/20 12/16/20 Lite Strips) lancets 28 gauge #100 ea 12/16/20 12/16/20 pen needle, diabetic 31 gauge x #50 ea 12/16/20 12/16/2010/08 albuterol sulfate 90 mcg/actuation 2 puff PO Q4-6H PRN 11/01/21 11/01/21 aerosol inhaler atorvastatin 80 mg tablet 1 tab PO DAILY 11/01/21 11/01/21 benztropine 2 mg tablet 1 tab PO BID 11/01/21 11/01/21 cariprazine 6 mg capsule (Vraylar) 1 cap PO DAILY 11/01/21 11/01/21 cyclobenzaprine 10 mg tablet 1 tab PO TID 11/01/21 11/01/21 duloxetine 60 mg capsule,delayed 1 cap PO BID 11/01/21 11/01/21 release famotidine 40 mg tablet 1 tab PO BEDTIME 11/01/21 11/01/21 fluticasone propionate 110 2 puff PO BID 11/01/21 11/01/21 mcg/actuation HFA aerosol inhaler (Flovent HFA) gabapentin 800 mg tablet 1 tab PO TID 11/01/21 11/01/21 insulin aspart U-100 100 unit/mL 7 unit SUBCUT TID 11/01/21 11/01/21 (3 mL) subcutaneous pen (Novolog Flexpen U-100 Insulin aspart) insulin glargine 100 unit/mL (3 34 unit SUBCUT Q12H 11/01/21 11/01/21 mL) subcutaneous pen (Lantus Solostar U-100 Insulin) lisinopril 20 mg tablet 1 tab PO DAILY 11/01/21 11/01/21 metformin 500 mg tablet,extended 2 tab PO BID 11/01/21 11/01/21 release 24 hr ropinirole 0.25 mg tablet 1 tab PO DAILY 11/01/21 11/01/21 trazodone 50 mg tablet 1 tab PO BEDTIME 11/01/21 11/01/21 zolpidem 10 mg tablet 1 tab PO BEDTIME 11/01/21 11/01/21 Allergies Allergy/AdvReac Type Severity Reaction Status Date / Time Penicillins [PENICILLINS] Allergy Intermediate HIVES Verified 11/01/21 20:23 ibuprofen Allergy Unknown unknown Verified 11/01/21 20:23 penicillin V Allergy Unknown Unknown Verified 11/01/21 20:23 NSAIDS (Non-Steroidal AdvReac Mild STOMACH Verified 11/01/21 20:23 Anti-Inflamma UPSET [NSAIDS (NON-STEROIDAL ANTI-INFLAMMA] Review of Systems Review of Systems: Constitutional : No Fever, No Chills ENT/Mouth : No Ear Pain, No Nasal Congestion, No sore throat Eyes: No Eye Pain, No Swelling, No Redness Cardiovascular : No Chest Pain, No SOB Respiratory : No Cough, No Sputum, No Dyspnea Gastrointestinal : No Nausea, No Vomiting, No Diarrhea, No Hematochezia, No Melena Genitourinary : No Dysuria, No Urinary Frequency, No Hematuria Musculoskeletal : No Myalgias Skin : No Skin Lesions, No rash Neuro : No Weakness, No Numbness, No Paresthesias, No Dizziness, No Headache Psych : positive Anxiety, positive Depression, no SI/HI Heme/Lymph: No Lymphadenopathy Endocrine : No Polyuria, No Polydipsia All other systems reviewed and are negative [facility] Past Medical History Attestation statement: The following information was validated with the patient. Medical History Arthritis Arthritis of knee Asthma Diabetes Fibromyalgia Gastritis High cholesterol Hypertension Migraines Restless leg syndrome Sleep apnea T2DM (type 2 diabetes mellitus) Surgical History History of carpal tunnel release History of esophagogastroduodenoscopy (EGD) Hx of arthroscopic knee surgery Hx of breast biopsy Hx of cholecystectomy Hx of fusion of cervical spine Hx of hysterectomy Family History Family History Father No problems noted. Mother HTN (hypertension) Arthritis Diabetes Social History Social History Alcohol intake: never Patient Tobacco Use Status: Current everyday Tobacco user Substance Use Type: Crack/Cocaine Advance Directives: No Advance Directives Information Provided: No Current occupational status: unemployed Current occupation: right handed Physical Exam Vital Signs: Vital Signs: Last Vital Signs Temp 98.4 F 11/03/21 06:59 Pulse 101 H 11/03/21 06:59 Resp 15 11/03/21 06:59 BP 177/66 H 11/03/21 06:59 Pulse Ox 94 11/03/21 06:59 BMI result Body Mass Index 25.4 Appearance: Alert. Oriented X3. No acute distress. Anxious Eyes: Pupils equal, round and reactive to light. ENT: Pharynx normal. Neck: Normal inspection. Neck supple. CVS: tachycardic heart rate and rhythm. Pulses normal. Respiratory: No respiratory distress. Breath sounds normal. Abdomen: Soft and non-tender. Skin: Skin warm and dry. Normal skin color. Normal skin turgor. Extremities: No lower extremity edema. No calf ttp Neuro: Oriented X 3. No motor deficit. No sensory deficit. Course Course Course Narrative: to go to [facility] MDM - Psych MDM Narrative Medical decision making narrative: 51 yo female hx of DM, arthritis, fibromyalgia recently heavy cocaine abuse - was offered detox bed over the weekend and went unfortunately in the waiting room she had a near syncopal event and had to be sent back to ED for IVF - she was then discharged to home and not to rehab. She states she is using again and feels anxious. She states she cannot do this alone and needs help. At this time no CP/SOB will obtain clearance labs, PO ativan, discuss with recovery coaches and CARE team. Lab Data Result diagrams: 11/03/21 07:56 11/03/21 07:56 Labs: Lab Results 11/03/21 11/03/21 11/03/21 Range/Units 07:30 07:56 07:56 WBC 11.1 H (4.8-10.8) X10*3/uL RBC 4.82 (4.20-5.50) X10*6/uL Hgb 13.4 (12.0-16.0) g/dl Hct 39.2 (37.0-47.0) % MCV 81.3 (80.0-98.0) fL MCH 27.8 (27.0-33.0) pg MCHC 34.2 (31.0-35.0) g/dl RDW 12.4 (11.0-16.0) % Plt Count 178 D (160-400) X10*3/uL MPV 11.2 (9.4-12.3) fL Immature Gran % (Auto) 0.4 (0.0-0.4) % Neut % (Auto) 72.8 (45-73) % Lymph % (Auto) 20.8 (20-40) % Bradford % (Auto) 4.4 (2-11) % Eos % (Auto) 1.2 (0-4) % Baso % (Auto) 0.4 (0-2) % Lymph # (Auto) 2.3 (1.2-4.9) X10*3/uL Bradford # (Auto) 0.5 (0.1-1.2) X10*3/uL Eos # (Auto) 0.1 (0.0-0.4) X10*3/uL Baso # (Auto) 0.0 (0.0-0.2) X10*3/uL Abs Immat Gran (auto) 0.04 H (0.00-0.03) X10*3/uL Absolute Neuts (auto) 8.1 (2.0-8.3) x10*3/uL Absolute Nucleated RBC 0.000 (0.0-0.012) X10*3/uL Nucleated RBC % (auto) 0.0 (0.0-0.2) /100WBC Sodium 141 (135-145) mmol/L Potassium 3.4 D (3.3-5.1) mmol/L Chloride 102 (96-108) mmol/L Carbon Dioxide 28 (22-29) mmol/L Anion Gap 14 (12-20) BUN 7 L (9-16) mg/dL Creatinine 0.69 (0.5-1.4) mg/dL Estim Creat Clear Calc 95.6 Estimated GFR > 60 Random Glucose 289 H (60-115) mg/dL Calcium 8.6 D (8.4-10.2) mg/dL Total Bilirubin 0.3 (0.0-1.0) mg/dL Direct Bilirubin < 0.2 (0.0-0.5) mg/dL AST 11 (5-31) U/L ALT 9 (0-31) U/L Alkaline Phosphatase 80 (39-117) U/L Total Protein 6.5 (6.5-8.0) g/dL Albumin 4.0 (3.5-5.0) g/dL COVID-19 (JAXON) Negative (Negative) COVID-19 Clin Com See Note ECG Data Attestation: I personally reviewed and interpreted this ECG as follows: ECG interpretation date: 11/03/21 ECG interpretation time: 07:25 Interpretation: Rate: 79 Rhythm: NSR [place]: normal Normal P waves. Normal DESTIN. Normal QRS complex. ST T wave : no MIRTHA, nonspecific qTC: normal prior studies: no acute ischemia The study has been interpreted contemporaneously by me. Discharge Plan Discharge Clinical Impression: Cocaine abuse Patient Disposition: Home, Self-Care Instructions: Cocaine Abuse (ED) Additional Instructions: return to ED for any worsening symptoms or concerns please go to detox. good luck in your recovery! Prescriptions: No Action albuterol sulfate 90 mcg/actuation HFA aerosol inhaler 2 puff PO Q4-6H PRN (Reason: Wheezing) 0RF zolpidem 10 mg tablet 1 tab PO BEDTIME 0RF benztropine 2 mg tablet 1 tab PO BID 0RF duloxetine 60 mg capsule,delayed release(DR/EC) 1 cap PO BID 0RF Lantus Solostar U-100 Insulin 100 unit/mL (3 mL) insulin pen 34 unit subcut Q12H 0RF famotidine 40 mg tablet 1 tab PO BEDTIME 0RF Flovent HFA 110 mcg/actuation HFA aerosol inhaler 2 puff PO BID 0RF cyclobenzaprine 10 mg tablet 1 tab PO TID 0RF gabapentin 800 mg tablet 1 tab PO TID 0RF lisinopril 20 mg tablet 1 tab PO DAILY 0RF metformin 500 mg tablet extended release 24 hr 2 tab PO BID 0RF insulin aspart U-100 [Novolog Flexpen U-100 Insulin] 100 unit/mL (3 mL) insulin pen 7 unit subcut TID 0RF trazodone 50 mg tablet 1 tab PO BEDTIME 0RF Vraylar 6 mg capsule 1 cap PO DAILY 0RF atorvastatin 80 mg tablet 1 tab PO DAILY 0RF ropinirole 0.25 mg tablet 1 tab PO DAILY 0RF (DME) blood-glucose meter Kit See Rx Instructions ea .ROUTE .MEDSUPPLY Qty: 1 0RF Rx Instructions: As directed aspirin 81 mg tablet,delayed release (DR/EC) 81 mg PO DAILY 0RF (DME) FreeStyle Lite Strips Strip See Rx Instructions .ROUTE .MEDSUPPLY Qty: 10 0RF Rx Instructions: As directed (DME) lancets 28 gauge misc See Rx Instructions ea topical TID Qty: 100 0RF Rx Instructions: As directed (DME) pen needle, diabetic 31 gauge x 3/16 needle See Rx Instructions ea .ROUTE .MEDSUPPLY Qty: 50 0RF Rx Instructions: As directed
--- NOTE | 2021-11-03 07:12 | ECG_ITS ---
Test Reason : etoh Blood Pressure : / mmHG Vent. Rate : 079 BPM Atrial Rate : 079 BPM P-R Int : 146 ms QRS Dur : 076 ms QT Int : 382 ms P-R-T Axes : 047 022 008 degrees QTc Int : 438 ms Normal sinus rhythm Normal ECG When compared with ECG of 01-NOV-2021 20:37, T wave inversion now evident in Inferior leads Nonspecific T wave abnormality no longer evident in Lateral leads Referred By: Bre Bliss Electronically Signed By:Benjamin Madrigal
[2021-11-03] MEDS: LORazepam 1 MG TABLET PO (07:25)
--- NOTE | 2021-11-03 07:26 | PC.NURSE ---
pt seeking detox, used cocaine last at 1:30 am Ativan 1mg given PO. EKG and labs done by pct.
[2021-11-03 08:02] LABS: MANUAL DIFF FLAG NO
[2021-11-03 08:06] LABS: Basophils Percent Auto 0.4 % (0-2); Eosinophils Absolute Auto 0.1 X10*3/uL (0.0-0.4); Eosinophils Percent Auto 1.2 % (0-4); Hematocrit 39.2 % (37.0-47.0); Hemoglobin 13.4 g/dl (12.0-16.0); Imm Gran Abs Auto 0.04 X10*3/uL (0.00-0.03); Imm Gran Pct Auto 0.4 % (0.0-0.4); Lymphocytes Absolute Auto 2.3 X10*3/uL (1.2-4.9); Lymphocytes Percent Auto 20.8 % (20-40); Mean Corpuscular HGB Conc 34.2 g/dl (31.0-35.0); Mean Corpuscular Hemoglobin 27.8 pg (27.0-33.0); Mean Corpuscular Volume 81.3 fL (80.0-98.0); Mean Platelet Volume 11.2 fL (9.4-12.3); Monocytes Absolute Auto 0.5 X10*3/uL (0.1-1.2); Monocytes Percent Auto 4.4 % (2-11); Neutrophils Absolute Auto 8.1 x10*3/uL (2.0-8.3); Neutrophils Percent Auto 72.8 % (45-73); Platelet Count 178 X10*3/uL (160-400); Red Blood Count 4.82 X10*6/uL (4.20-5.50); Red Cell Distribution Width 12.4 % (11.0-16.0); White Blood Count 11.1 X10*3/uL (4.8-10.8)
[2021-11-03 08:06] LABS: COVID-19 Test Negative (Negative); IDNOW Serial# 16C4AD1C
[2021-11-03 08:20] LABS: Alanine Aminotransferase 9 U/L (0-31); Alkaline Phosphatase 80 U/L (39-117); Anion Gap 14 (12-20); Aspartate Amino Transferase 11 U/L (5-31); Bilirubin Direct < 0.2 mg/dL (0.0-0.5); Bilirubin Total 0.3 mg/dL (0.0-1.0); Blood Urea Nitrogen 7 mg/dL (9-16); Calcium 8.6 mg/dL (8.4-10.2); Carbon Dioxide 28 mmol/L (22-29); Chloride 102 mmol/L (96-108); Creatinine Clr Calc Pharmacy 95.6; Estimated Glomerular Filt Rate > 60; Glucose Random 289 mg/dL (60-115); Potassium 3.4 mmol/L (3.3-5.1); Sodium 141 mmol/L (135-145); Total Protein 6.5 g/dL (6.5-8.0)
[2021-11-03 11:01] VITALS: BP 149/63; PULSE 87; RESP 18; O2SAT 99
--- NOTE | 2021-11-03 11:11 | MHC.RECOVSUP ---
Recovery Support note: Patient is a 51 year old Maldivian speaking female who [place] [facility] [place]. Patient is known to this newswriter from a consultation on 11/01. Patient had a bed at [facility] however fell outside the ED and was readmitted and discharged overnight. Patient continues to express interest in going to detox. Patient information faxed to [facility]. Phone intake completed and patient has been accepted for admission. Discussed case with ED physician and RN. Patient to be transported home via Lyft to get medications and then transported via Lyft to [facility].
[2021-11-03 11:47] LABS: Amphetamine Screen Urine Not Detected (Not Detect); Barbiturates, Urine Not Detected (Not Detect); Benzodiazepines Screen Urine Not Detected (Not Detect); Cannabinoid Screen Urine Not Detected (Not Detect); Cocaine Screen Urine POSITIVE (Not Detect); Fentanyl, urine Not Detected (Not Detect); Opiate Screen Urine Not Detected (Not Detect); Phencyclidine Screen Urine Not Detected (Not Detect)
== END 2021-11-03 11:21 | disposition home or self-care (01) ==
PROVIDERS: Emergency Provider Emergency Medicine; PCP Internal Medicine
DX: F14.10 Cocaine abuse, uncomplicated (principal); Z20.822 Contact with and (suspected) exposure to COVID-19; F41.9 Anxiety disorder, unspecified; F32.A Depression, unspecified; E11.9 Type 2 diabetes mellitus without complications; I10 Essential (primary) hypertension; E78.5 Hyperlipidemia, unspecified; F17.200 Nicotine dependence, unspecified, uncomplicated; Z79.82 Long term (current) use of aspirin; Z79.02 Long term (current) use of antithrombotics/antiplatelets; Z79.899 Other long term (current) drug therapy; Z79.4 Long term (current) use of insulin
CPT/HCPCS: 36415; 80048; 80076; 80307; 85025; 87635; 93005; 99284

== ENCOUNTER → 2022-04-21 10:57 | Outpatient (BNVA) | payer OTHER, SELFPAY | PROVIDERS: PCP Internal Medicine; Visit Provider Physician Assistant | DX: G56.03 Carpal tunnel syndrome, bilateral upper limbs (principal) | CPT/HCPCS: 99202 ==

== ENCOUNTER 2022-06-24 15:14 | Outpatient (REF) | payer OTHER, SELFPAY ==
--- NOTE | 2022-06-24 10:15 | EMG_ITS ---
Please see scanned EMG / Nerve Conduction Report. MTDD
== END 2022-06-24 15:15 | disposition home or self-care (01) ==
LOC: HO.NEURO 15:14
PROVIDERS: PCP Internal Medicine; Visit Provider Physician Assistant
DX: G56.03 Carpal tunnel syndrome, bilateral upper limbs (principal)
CPT/HCPCS: 95885; 95913

== ENCOUNTER → 2022-06-30 12:29 | Outpatient (BNVA) | payer OTHER, SELFPAY | PROVIDERS: PCP Internal Medicine; Visit Provider Physician Assistant | DX: M79.642 Pain in left hand (principal); M79.641 Pain in right hand; R20.0 Anesthesia of skin; R20.2 Paresthesia of skin; R29.898 Other symptoms and signs involving the musculoskeletal system | CPT/HCPCS: 99212 ==

== ENCOUNTER 2022-09-07 16:33 | Outpatient (REF) | payer OTHER, SELFPAY ==
--- NOTE | ~2022-09-07 | XR_ITS ---
EXAMINATION: XR SHOULDER, RIGHT CLINICAL INFORMATION: Right shoulder pain COMPARISON: None TECHNIQUE: Three views of the right shoulder. FINDINGS: Mild glenohumeral and acromioclavicular osteoarthritis. No fracture or suspicious bone lesion. Subscapularis calcific tendinitis and probable calcific tendinitis at the infraspinatus tendon insertion. XR/XR shoulder RT min 2V IMPRESSION: Mild acromioclavicular and glenohumeral osteoarthritis. Calcific tendinitis.
== END 2022-09-07 16:34 | disposition home or self-care (01) ==
LOC: HO.HOSX 16:33
PROVIDERS: Visit Provider Physician Assistant
DX: M19.011 Primary osteoarthritis, right shoulder (principal); Z79.899 Other long term (current) drug therapy
CPT/HCPCS: 73030; 99212

== ENCOUNTER 2022-10-12 12:30 | Outpatient (REF) | payer OTHER, SELFPAY ==
--- NOTE | ~2022-10-12 | FL_ITS ---
EXAMINATION: XR ARTHROGRAM SHOULDER, RIGHT CLINICAL INFORMATION: Primary osteoarthritis right shoulder. COMPARISON: None available. TECHNIQUE: Following explaining fluoroscopy-guided right AC joint arthrogram and steroid injection procedure, benefits and risks, a written consent was obtained. Patient was placed supine on fluoroscopy table and anterior aspect of the right AC joint was cleaned and draped in the usual sterile manner. 1% lidocaine was injected overlying the AC joint. A 25-gauge needle was then advanced from the skin into the joint space and 2 mL nonionic contrast was injected. Subsequently, 40 mg of Depo-Medrol and 2 mL of 1% lidocaine was injected in the joint space and needle withdrawn. Simple Band-Aid applied postprocedure. Patient tolerated procedure extremely well. FINDINGS: There is mild loss of right AC joint space without periarticular spurring. Patient is tender in this region. On fluoroscopy images, there is contrast opacifying the joint space. Successful insertion of 40 mg of Depo-Medrol and 2 mL of 1% lidocaine into the AC joint space. FLUOROSCOPY TIME: 1.1 minutes. DOSE AREA PRODUCT: 3.234 uGy-m2 (microgray-meter squared). FL/FL arthrogram shoulder RT IMPRESSION: Successful fluoroscopy-guided right AC joint steroid injection performed.
== END 2022-10-12 12:31 | disposition home or self-care (01) ==
LOC: HO.XRAY 12:30
PROVIDERS: PCP Internal Medicine; Visit Provider Physician Assistant
DX: M19.011 Primary osteoarthritis, right shoulder (principal)
CPT/HCPCS: 23350; 73040

== ENCOUNTER 2022-10-27 11:48 | Emergency (ER) | payer OTHER, SELFPAY ==
[2022-10-27 11:51] VITALS: BP 109/65; PULSE 107; RESP 19; TEMP 36.6; O2SAT 98; BMI 28.1
--- NOTE | 2022-10-27 11:51 | ED.GENADULT ---
HPI - General Adult General Chief complaint: General Medical <NABEEL Crump - Last Filed: 10/27/22 11:54> Stated complaint: Blood in stool <NABEEL Crump - Last Filed: 10/27/22 11:54> Time Seen by Provider: 10/27/22 13:45 <NABEEL Crump - Last Filed: 10/27/22 11:54> Source: patient and family <Devon Barroso MD - Last Filed: 10/27/22 18:47> Mode of arrival: ambulatory <Devon Barroso MD - Last Filed: 10/27/22 18:47> Limitations: no limitations <Devon Barroso MD - Last Filed: 10/27/22 18:47> History of Present Illness HPI narrative: 52-year-old female who presents emergency department for evaluation of constipation, hard stools and blood per rectum. Patient states that over the past 4 months she has only had 2 bowel movements per month. She states that when she moves her bowels they are hard balls the size of golf balls. She states she has to strain to move her bowels and she often notices bright red blood in the toilet bowl after she moves her bowels. She denied abdominal pain she denied fever, chills, night sweats. She denied weight loss or weight gain. She did not take any medications for her constipation. She states she takes a lot of medications but there has been no change 4 months prior. She states she was started on Seroquel 1 week prior. <Devon Barroso MD - Last Filed: 10/27/22 18:47> Related Data Home medications: Home Medications Medication Instructions Recorded Confirmed aspirin 81 mg tablet,delayed 81 mg PO DAILY 06/10/20 09/07/22 release blood-glucose meter #1 ea 06/10/20 09/07/22 blood sugar diagnostic (FreeStyle #10 ea 12/16/20 09/07/22 Lite Strips) lancets 28 gauge #100 ea 12/16/20 09/07/22 pen needle, diabetic 31 gauge x #50 ea 12/16/20 09/07/2210/08 albuterol sulfate 90 mcg/actuation 2 puff PO Q4-6H PRN Wheezing 11/01/21 09/07/22 aerosol inhaler atorvastatin 80 mg tablet 1 tab PO DAILY 11/01/21 09/07/22 benztropine 2 mg tablet 1 tab PO BID 11/01/21 09/07/22 cariprazine 6 mg capsule (Vraylar) 1 cap PO DAILY 11/01/21 09/07/22 cyclobenzaprine 10 mg tablet 1 tab PO TID 11/01/21 09/07/22 duloxetine 60 mg capsule,delayed 1 cap PO BID 11/01/21 09/07/22 release famotidine 40 mg tablet 1 tab PO BEDTIME 11/01/21 09/07/22 fluticasone propionate 110 2 puff PO BID 11/01/21 09/07/22 mcg/actuation HFA aerosol inhaler (Flovent HFA) gabapentin 800 mg tablet 1 tab PO TID 11/01/21 09/07/22 insulin aspart U-100 100 unit/mL 7 unit subcut TID 11/01/21 09/07/22 (3 mL) subcutaneous pen (Novolog FlexPen U-100 Insulin aspart) insulin glargine 100 unit/mL (3 34 unit subcut Q12H 11/01/21 09/07/22 mL) subcutaneous pen (Lantus Solostar U-100 Insulin) lisinopril 20 mg tablet 1 tab PO DAILY 11/01/21 09/07/22 metformin 500 mg tablet,extended 2 tab PO BID 11/01/21 09/07/22 release 24 hr ropinirole 0.25 mg tablet 1 tab PO DAILY 11/01/21 09/07/22 trazodone 50 mg tablet 1 tab PO BEDTIME 11/01/21 09/07/22 zolpidem 10 mg tablet 1 tab PO BEDTIME 11/01/21 09/07/22 clonidine HCl 0.1 mg tablet 0.1 mg PO BID-TID PRN 04/21/22 09/07/22 dulaglutide 3 mg/0.5 mL mg subcut QWEEK 04/21/22 09/07/22 subcutaneous pen injector (Trulicity) empagliflozin 10 mg tablet 10 mg PO QAM 04/21/22 09/07/22 (Jardiance) mirtazapine 7.5 mg tablet 7.5 mg PO BEDTIME 04/21/22 09/07/22 multivitamin-ferrous 0 tab PO 04/21/22 09/07/22 fumarate-folic acid 18 mg-400 mcg tablet (Certavite-Antioxidant) <NABEEL Crump - Last Filed: 10/27/22 11:54> Allergies/adverse reactions: Allergies Allergy/AdvReac Type Severity Reaction Status Date / Time Penicillins [PENICILLINS] Allergy Intermediate HIVES Verified 10/27/22 11:50 ibuprofen Allergy Unknown unknown Verified 10/27/22 11:50 penicillin V Allergy Unknown Unknown Verified 10/27/22 11:50 NSAIDS (Non-Steroidal AdvReac Mild STOMACH Verified 10/27/22 11:50 Anti-Inflamma UPSET [NSAIDS (NON-STEROIDAL ANTI-INFLAMMA] <NABEEL Crump - Last Filed: 10/27/22 11:54> Review of Systems Review of Systems: Yes all other systems are reviewed and are negative <Devon Barroso MD - Last Filed: 10/27/22 18:47> [facility] Past Medical History [facility] Narrative: Social history: She denies tobacco, alcohol and drug use. <Devon Barroso MD - Last Filed: 10/27/22 18:47> Medical History: Medical History Arthritis Arthritis of knee Asthma Diabetes Fibromyalgia Gastritis High cholesterol Hypertension Migraines Restless leg syndrome Sleep apnea T2DM (type 2 diabetes mellitus) <NABEEL Crump - Last Filed: 10/27/22 11:54> Surgical History: Surgical History History of carpal tunnel release History of esophagogastroduodenoscopy (EGD) Hx of arthroscopic knee surgery Hx of breast biopsy Hx of cholecystectomy Hx of fusion of cervical spine Hx of hysterectomy <NABEEL Crump - Last Filed: 10/27/22 11:54> Family History Family History: Family History Father No problems noted. Mother HTN (hypertension) Arthritis Diabetes <NABEEL Crump - Last Filed: 10/27/22 11:54> Social History Social History: Social History Alcohol intake: never Patient Tobacco Use Status: Current everyday Tobacco user Smoked in Last 30 Days: Yes Use of substances other than those prescribed or required for medical reasons: No Substance Use Type: Crack/Cocaine Advance Directives: No Advance Directives Information Provided: Yes Patient : No Current occupational status: unemployed Current occupation: right handed <NABEEL Crump - Last Filed: 10/27/22 11:54> Physical Exam ED Vital Signs: Vital Signs - 24 hr 10/27/22 11:51 10/27/22 13:37 Temperature 98 F 98.3 F Pulse Rate 107 H 90 Respiratory Rate 19 14 Blood Pressure 109/65 132/45 L Pulse Oximetry 98 97 Oxygen Delivery Method Room Air Room Air BMI result Body Mass Index 28.1 <NABEEL Crump - Last Filed: 10/27/22 11:54> Vital Signs - 24 hr 10/27/22 11:51 10/27/22 13:37 Temperature 98 F 98.3 F Pulse Rate 107 H 90 Respiratory Rate 19 14 Blood Pressure 109/65 132/45 L Pulse Oximetry 98 97 Oxygen Delivery Method Room Air Room Air BMI result Body Mass Index 28.1 <Devon Barroso MD - Last Filed: 10/27/22 18:47> Const General: cooperative and no acute distress <Devon Barroso MD - Last Filed: 10/27/22 18:47> Orientation/consciousness: oriented to person and oriented to place <Devon Barroso MD - Last Filed: 10/27/22 18:47> Limitations: no limitations <Devon Barroso MD - Last Filed: 10/27/22 18:47> HENMT Head: Yes normal to inspection, Yes normocephalic and Yes atraumatic <Devon Barroso MD - Last Filed: 10/27/22 18:47> Ears: external ears normal <Devon Barroso MD - Last Filed: 10/27/22 18:47> General nose exam: Normal external nose present <MD Ja Aguirre Last Filed: 10/27/22 18:47> Face and sinus: Yes normal facial exam <MD Ja Aguirre Last Filed: 10/27/22 18:47> Mouth: Normal oral and palatal mucosa present <MD Ja Aguirre Last Filed: 10/27/22 18:47> Throat: Yes posterior oropharynx normal <MD Ja Aguirre Last Filed: 10/27/22 18:47> Eyes General: appearance normal, both eyes and all related structures <MD Ja Aguirre Last Filed: 10/27/22 18:47> Pupils: Equal, round and reactive pupils present <MD Ja Aguirre Last Filed: 10/27/22 18:47> Neck Neck: Yes normal visual inspection, Yes no lymphadenopathy, Yes trachea midline and Yes supple <MD Ja Aguirre Last Filed: 10/27/22 18:47> Chest Chest palpation & inspection: normal inspection of the chest and normal palpation of entire chest wall <MD Ja Aguirre Last Filed: 10/27/22 18:47> Resp Effort & Inspection: normal respiratory effort and able to speak in complete sentences <MD Ja Aguirre Last Filed: 10/27/22 18:47> Auscultation: clear to auscultation bilaterally <MD Ja Aguirre Last Filed: 10/27/22 18:47> Cardio Rate: regular rate <MD Ja Aguirre Last Filed: 10/27/22 18:47> Rhythm: regular rhythm <MD Ja Aguirre Last Filed: 10/27/22 18:47> Heart sounds: S1 normal heart sound present, S2 normal heart sound present and no murmurs <MD Ja Aguirre Last Filed: 10/27/22 18:47> GI Other: Abdomen is obese, soft, nontender, normoactive bowel sounds, rectal examination revealed no external hemorrhoids. Patient had palpable masses on digital exam. She had hard stool in the rectum. She was digitally disimpacted. <MD Ja Aguirre Last Filed: 10/27/22 18:47> Palpation (GI): Guarding due to palpation present (GI) <Devon Barroso MD - Last Filed: 10/27/22 18:47> General: Yes no CVA tenderness <Devon Barroso MD - Last Filed: 10/27/22 18:47> Back/Spine/Pelvis Back: no CVA tenderness <Devon Barroso MD - Last Filed: 10/27/22 18:47> Skin General skin exam: no rashes or lesions noted <Devon Barroso MD - Last Filed: 10/27/22 18:47> Neuro General: oriented to person and oriented to place <Devon Barroso MD - Last Filed: 10/27/22 18:47> Cranial nerves: Yes CN's II-XII intact bilaterally and Yes Equal, round and reactive pupils present <Devon Barroso MD - Last Filed: 10/27/22 18:47> Cognition (Neuro): normal cognition <Devon Barroso MD - Last Filed: 10/27/22 18:47> Motor exam (neuro): 5/5 motor strength present throughout <Devon Barroso MD - Last Filed: 10/27/22 18:47> Extrem General: Yes normal to inspection <Devon Barroso MD - Last Filed: 10/27/22 18:47> Psych Appearance: grossly normal <Devon Barroso MD - Last Filed: 10/27/22 18:47> Speech and movement: Normal speech and movement present <Devon Barroso MD - Last Filed: 10/27/22 18:47> Affect: normal affect <Devon Barroso MD - Last Filed: 10/27/22 18:47> Attitude: cooperative <Devon Barroso MD - Last Filed: 10/27/22 18:47> Thought process: Normal thought process present <MD Ja Aguirre Last Filed: 10/27/22 18:47> Thought content: Normal thought content present <Devon Barroso MD - Last Filed: 10/27/22 18:47> Course Course Course Narrative: This is an RME: Additional HPI, ROS, PE not included below will be deferred to primary provider. 52-year-old female history of diabetes, fibromyalgia, MALLIKA, osteoarthritis presents to the emergency department for evaluation of rectal bleeding, this has been going on for few days, patient tells me she typically has a bowel movement once a month, when she does have this bowel movement hard golf ball like stools come out, and afterwards she has rectal bleeding that is very significant. Patient shows me images on her phone which show bright red toilet water and bright red blood on toilet paper. Patient denies abd pain, chest pain, shortness of breath, weakness, headache, vision changes, chills fevers, chills. Last colonoscopy 3-5 years ago unremarkable per patient. Physical exam benign. plan at this time basic labs. <NABEEL Crump - Last Filed: 10/27/22 11:54> Medical Decision Making Medical Decision Making MDM Narrative: 52-year-old female who presents emergency department for evaluation of constipation x4 months with only 2 bowel movements per month. When she moves her bowels she has hard cough ball stools and notices bright red blood per rectum. She has had no concerning systemic symptoms such as fever chills, weight loss, weight gain, night sweats. Patient had a CBC, CMP urinalysis and COVID-19 test. 1536: My interpretation patient's laboratory evaluation: CBC normal. CMP revealed elevated glucose 216 otherwise unremarkable. COVID negative. At this time I do not have a clear etiology for the patient's constipation however she did have significant impaction and she was disimpacted by IV. I did order a soapsuds enema x1. 1846: Patient did have a good bowel movement after the above treatment. The patient however left prior to getting her discharge paperwork. <Devon Barroso MD - Last Filed: 10/27/22 18:47> Lab Data Result Diagrams: 10/27/22 11:58 10/27/22 11:58 <NABEEL Crump - Last Filed: 10/27/22 11:54> Labs: Lab Results 10/27/22 10/27/22 10/27/22 Range/Units 06:23 11:58 11:58 WBC 9.4 (4.8-10.8) X10*3/uL RBC 4.62 (4.20-5.50) X10*6/uL Hgb 12.5 (12.0-16.0) g/dl Hct 38.4 (37.0-47.0) % MCV 83.1 (80.0-98.0) fL MCH 27.1 (27.0-33.0) pg MCHC 32.6 (31.0-35.0) g/dl RDW 13.0 (11.0-16.0) % Plt Count 256 D (160-400) X10*3/uL MPV 10.0 (9.4-12.3) fL Immature Gran % (Auto) 0.2 (0.0-0.4) % Neut % (Auto) 59.6 (45-73) % Lymph % (Auto) 29.5 (20-40) % [place] % (Auto) 5.5 (2-11) % Eos % (Auto) 4.7 H (0-4) % Baso % (Auto) 0.5 (0-2) % Lymph # (Auto) 2.8 (1.2-4.9) X10*3/uL [place] # (Auto) 0.5 (0.1-1.2) X10*3/uL Eos # (Auto) 0.4 (0.0-0.4) X10*3/uL Baso # (Auto) 0.1 (0.0-0.2) X10*3/uL Abs Immat Gran (auto) 0.02 (0.00-0.03) X10*3/uL Absolute Neuts (auto) 5.6 (2.0-8.3) x10*3/uL Absolute Nucleated RBC 0.000 (0.0-0.012) X10*3/uL Nucleated RBC % (auto) 0.0 (0.0-0.2) /100WBC Sodium 136 (135-145) mmol/L Potassium 5.1 D (3.3-5.1) mmol/L Chloride 100 (96-108) mmol/L Carbon Dioxide 27 (22-29) mmol/L Anion Gap 14 (12-20) BUN 19 H (9-16) mg/dL Creatinine 0.83 (0.5-1.4) mg/dL Estim Creat Clear Calc 79.3 Estimated GFR > 60 Random Glucose 216 H (60-115) mg/dL Calcium 9.4 D (8.4-10.2) mg/dL Magnesium 2.0 (1.6-2.6) mg/dL Total Bilirubin 0.5 (0.0-1.0) mg/dL AST 16 (5-31) U/L ALT 21 (0-31) U/L Alkaline Phosphatase 80 (39-117) U/L Total Protein 6.9 (6.5-8.0) g/dL Albumin 4.3 (3.5-5.0) g/dL Urine Color Urine Appearance Urine pH (5.0-9.0) Ur Specific [place] (1.005-1.025) Urine Protein (Neg-Trace) mg/dL Urine Glucose (UA) (Negative) mg/dL Urine Ketones (Negative) mg/dL Urine Blood (Negative) Urine Nitrite (Negative) Ur Leukocyte Esterase (Negative) Urine RBC (0-2) /HPF Urine WBC (0-5) /HPF Ur Squamous Epith Cells (0-2) /HPF Urine Bacteria (None Seen) Hyaline Casts (0-2) /LPF COVID-19 (JAXON) Negative (Negative) COVID-19 Clin Com See Note 10/27/22 Range/Units 13:33 WBC (4.8-10.8) X10*3/uL RBC (4.20-5.50) X10*6/uL Hgb (12.0-16.0) g/dl Hct (37.0-47.0) % MCV (80.0-98.0) fL MCH (27.0-33.0) pg MCHC (31.0-35.0) g/dl RDW (11.0-16.0) % Plt Count (160-400) X10*3/uL MPV (9.4-12.3) fL Immature Gran % (Auto) (0.0-0.4) % Neut % (Auto) (45-73) % Lymph % (Auto) (20-40) % [place] % (Auto) (2-11) % Eos % (Auto) (0-4) % Baso % (Auto) (0-2) % Lymph # (Auto) (1.2-4.9) X10*3/uL [place] # (Auto) (0.1-1.2) X10*3/uL Eos # (Auto) (0.0-0.4) X10*3/uL Baso # (Auto) (0.0-0.2) X10*3/uL Abs Immat Gran (auto) (0.00-0.03) X10*3/uL Absolute Neuts (auto) (2.0-8.3) x10*3/uL Absolute Nucleated RBC (0.0-0.012) X10*3/uL Nucleated RBC % (auto) (0.0-0.2) /100WBC Sodium (135-145) mmol/L Potassium (3.3-5.1) mmol/L Chloride (96-108) mmol/L Carbon Dioxide (22-29) mmol/L Anion Gap (12-20) BUN (9-16) mg/dL Creatinine (0.5-1.4) mg/dL Estim Creat Clear Calc Estimated GFR Random Glucose (60-115) mg/dL Calcium (8.4-10.2) mg/dL Magnesium (1.6-2.6) mg/dL Total Bilirubin (0.0-1.0) mg/dL AST (5-31) U/L ALT (0-31) U/L Alkaline Phosphatase (39-117) U/L Total Protein (6.5-8.0) g/dL Albumin (3.5-5.0) g/dL Urine Color Yellow Urine Appearance Clear Urine pH 6.0 (5.0-9.0) Ur Specific [place] 1.020 (1.005-1.025) Urine Protein Negative (Neg-Trace) mg/dL Urine Glucose (UA) >=1000 H (Negative) mg/dL Urine Ketones Negative (Negative) mg/dL Urine Blood Negative (Negative) Urine Nitrite Negative (Negative) Ur Leukocyte Esterase Trace H (Negative) Urine RBC 0-2 (0-2) /HPF Urine WBC 0-5 (0-5) /HPF Ur Squamous Epith Cells 0-2 (0-2) /HPF Urine Bacteria None Seen (None Seen) Hyaline Casts 0-2 (0-2) /LPF COVID-19 (JAXON) (Negative) COVID-19 Clin Com <NABEEL Crump - Last Filed: 10/27/22 11:54> Lab Results 10/27/22 10/27/22 10/27/22 Range/Units 06:23 11:58 11:58 WBC 9.4 (4.8-10.8) X10*3/uL RBC 4.62 (4.20-5.50) X10*6/uL Hgb 12.5 (12.0-16.0) g/dl Hct 38.4 (37.0-47.0) % MCV 83.1 (80.0-98.0) fL MCH 27.1 (27.0-33.0) pg MCHC 32.6 (31.0-35.0) g/dl RDW 13.0 (11.0-16.0) % Plt Count 256 D (160-400) X10*3/uL MPV 10.0 (9.4-12.3) fL Immature Gran % (Auto) 0.2 (0.0-0.4) % Neut % (Auto) 59.6 (45-73) % Lymph % (Auto) 29.5 (20-40) % [place] % (Auto) 5.5 (2-11) % Eos % (Auto) 4.7 H (0-4) % Baso % (Auto) 0.5 (0-2) % Lymph # (Auto) 2.8 (1.2-4.9) X10*3/uL [place] # (Auto) 0.5 (0.1-1.2) X10*3/uL Eos # (Auto) 0.4 (0.0-0.4) X10*3/uL Baso # (Auto) 0.1 (0.0-0.2) X10*3/uL Abs Immat Gran (auto) 0.02 (0.00-0.03) X10*3/uL Absolute Neuts (auto) 5.6 (2.0-8.3) x10*3/uL Absolute Nucleated RBC 0.000 (0.0-0.012) X10*3/uL Nucleated RBC % (auto) 0.0 (0.0-0.2) /100WBC Sodium 136 (135-145) mmol/L Potassium 5.1 D (3.3-5.1) mmol/L Chloride 100 (96-108) mmol/L Carbon Dioxide 27 (22-29) mmol/L Anion Gap 14 (12-20) BUN 19 H (9-16) mg/dL Creatinine 0.83 (0.5-1.4) mg/dL Estim Creat Clear Calc 79.3 Estimated GFR > 60 Random Glucose 216 H (60-115) mg/dL Calcium 9.4 D (8.4-10.2) mg/dL Magnesium 2.0 (1.6-2.6) mg/dL Total Bilirubin 0.5 (0.0-1.0) mg/dL AST 16 (5-31) U/L ALT 21 (0-31) U/L Alkaline Phosphatase 80 (39-117) U/L Total Protein 6.9 (6.5-8.0) g/dL Albumin 4.3 (3.5-5.0) g/dL Urine Color Urine Appearance Urine pH (5.0-9.0) Ur Specific [place] (1.005-1.025) Urine Protein (Neg-Trace) mg/dL Urine Glucose (UA) (Negative) mg/dL Urine Ketones (Negative) mg/dL Urine Blood (Negative) Urine Nitrite (Negative) Ur Leukocyte Esterase (Negative) Urine RBC (0-2) /HPF Urine WBC (0-5) /HPF Ur Squamous Epith Cells (0-2) /HPF Urine Bacteria (None Seen) Hyaline Casts (0-2) /LPF COVID-19 (JAXON) Negative (Negative) COVID-19 Clin Com See Note 10/27/22 Range/Units 13:33 WBC (4.8-10.8) X10*3/uL RBC (4.20-5.50) X10*6/uL Hgb (12.0-16.0) g/dl Hct (37.0-47.0) % MCV (80.0-98.0) fL MCH (27.0-33.0) pg MCHC (31.0-35.0) g/dl RDW (11.0-16.0) % Plt Count (160-400) X10*3/uL MPV (9.4-12.3) fL Immature Gran % (Auto) (0.0-0.4) % Neut % (Auto) (45-73) % Lymph % (Auto) (20-40) % [place] % (Auto) (2-11) % Eos % (Auto) (0-4) % Baso % (Auto) (0-2) % Lymph # (Auto) (1.2-4.9) X10*3/uL [place] # (Auto) (0.1-1.2) X10*3/uL Eos # (Auto) (0.0-0.4) X10*3/uL Baso # (Auto) (0.0-0.2) X10*3/uL Abs Immat Gran (auto) (0.00-0.03) X10*3/uL Absolute Neuts (auto) (2.0-8.3) x10*3/uL Absolute Nucleated RBC (0.0-0.012) X10*3/uL Nucleated RBC % (auto) (0.0-0.2) /100WBC Sodium (135-145) mmol/L Potassium (3.3-5.1) mmol/L Chloride (96-108) mmol/L Carbon Dioxide (22-29) mmol/L Anion Gap (12-20) BUN (9-16) mg/dL Creatinine (0.5-1.4) mg/dL Estim Creat Clear Calc Estimated GFR Random Glucose (60-115) mg/dL Calcium (8.4-10.2) mg/dL Magnesium (1.6-2.6) mg/dL Total Bilirubin (0.0-1.0) mg/dL AST (5-31) U/L ALT (0-31) U/L Alkaline Phosphatase (39-117) U/L Total Protein (6.5-8.0) g/dL Albumin (3.5-5.0) g/dL Urine Color Yellow Urine Appearance Clear Urine pH 6.0 (5.0-9.0) Ur Specific [place] 1.020 (1.005-1.025) Urine Protein Negative (Neg-Trace) mg/dL Urine Glucose (UA) >=1000 H (Negative) mg/dL Urine Ketones Negative (Negative) mg/dL Urine Blood Negative (Negative) Urine Nitrite Negative (Negative) Ur Leukocyte Esterase Trace H (Negative) Urine RBC 0-2 (0-2) /HPF Urine WBC 0-5 (0-5) /HPF Ur Squamous Epith Cells 0-2 (0-2) /HPF Urine Bacteria None Seen (None Seen) Hyaline Casts 0-2 (0-2) /LPF COVID-19 (JAXON) (Negative) COVID-19 Clin Com <Devon Barroso MD - Last Filed: 10/27/22 18:47> Discharge Plan Discharge Clinical Impression: Constipation, Fecal impaction <NABEEL Crump - Last Filed: 10/27/22 11:54> Patient Disposition: Elopement <NABEEL Crump - Last Filed: 10/27/22 11:54> Prescriptions: No Action albuterol sulfate 90 mcg/actuation HFA aerosol inhaler 2 puff PO Q4-6H PRN (Reason: Wheezing) zolpidem 10 mg tablet 1 tab PO BEDTIME benztropine 2 mg tablet 1 tab PO BID duloxetine 60 mg capsule,delayed release(DR/EC) 1 cap PO BID Lantus Solostar U-100 Insulin 100 unit/mL (3 mL) insulin pen 34 unit subcut Q12H famotidine 40 mg tablet 1 tab PO BEDTIME Flovent HFA 110 mcg/actuation HFA aerosol inhaler 2 puff PO BID cyclobenzaprine 10 mg tablet 1 tab PO TID gabapentin 800 mg tablet 1 tab PO TID lisinopril 20 mg tablet 1 tab PO DAILY metformin 500 mg tablet extended release 24 hr 2 tab PO BID insulin aspart U-100 [Novolog FlexPen U-100 Insulin] 100 unit/mL (3 mL) insulin pen 7 unit subcut TID trazodone 50 mg tablet 1 tab PO BEDTIME Vraylar 6 mg capsule 1 cap PO DAILY atorvastatin 80 mg tablet 1 tab PO DAILY ropinirole 0.25 mg tablet 1 tab PO DAILY (DME) blood-glucose meter Kit See Rx Instructions .ROUTE .MEDSUPPLY Qty: 1 Rx Instructions: As directed aspirin 81 mg tablet,delayed release (DR/EC) 81 mg PO DAILY (DME) FreeStyle Lite Strips Strip See Rx Instructions .ROUTE .MEDSUPPLY Qty: 10 Rx Instructions: As directed (DME) lancets 28 gauge misc See Rx Instructions topical TID Qty: 100 Rx Instructions: As directed (DME) pen needle, diabetic 31 gauge x 3/16 needle See Rx Instructions .ROUTE .MEDSUPPLY Qty: 50 Rx Instructions: As directed clonidine HCl 0.1 mg tablet 0.1 mg PO BID-TID PRN Jardiance 10 mg tablet 10 mg PO QAM Trulicity 3 mg/0.5 mL pen injector subcut QWEEK Certavite-Antioxidant 18-400 mg-mcg tablet 0 tab PO mirtazapine 7.5 mg tablet 7.5 mg PO BEDTIME <NABEEL Crump - Last Filed: 10/27/22 11:54> Interventions: ED Discharge Assessment Last Done: 10/27/22 18:00 <NABEEL Crump - Last Filed: 10/27/22 11:54> Discharge Date/Time: 10/27/22 18:01 <NABEEL Crump - Last Filed: 10/27/22 11:54>
[2022-10-27 12:14] LABS: MANUAL DIFF FLAG NO
[2022-10-27 12:17] LABS: Basophils Absolute Auto 0.1 X10*3/uL (0.0-0.2); Basophils Percent Auto 0.5 % (0-2); Eosinophils Absolute Auto 0.4 X10*3/uL (0.0-0.4); Eosinophils Percent Auto 4.7 % (0-4); Hematocrit 38.4 % (37.0-47.0); Hemoglobin 12.5 g/dl (12.0-16.0); Imm Gran Abs Auto 0.02 X10*3/uL (0.00-0.03); Imm Gran Pct Auto 0.2 % (0.0-0.4); Lymphocytes Absolute Auto 2.8 X10*3/uL (1.2-4.9); Lymphocytes Percent Auto 29.5 % (20-40); Mean Corpuscular HGB Conc 32.6 g/dl (31.0-35.0); Mean Corpuscular Hemoglobin 27.1 pg (27.0-33.0); Mean Corpuscular Volume 83.1 fL (80.0-98.0); Monocytes Absolute Auto 0.5 X10*3/uL (0.1-1.2); Monocytes Percent Auto 5.5 % (2-11); Neutrophils Absolute Auto 5.6 x10*3/uL (2.0-8.3); Neutrophils Percent Auto 59.6 % (45-73); Platelet Count 256 X10*3/uL (160-400); Red Blood Count 4.62 X10*6/uL (4.20-5.50); White Blood Count 9.4 X10*3/uL (4.8-10.8)
[2022-10-27 12:33] LABS: Alanine Aminotransferase 21 U/L (0-31); Albumin Level 4.3 g/dL (3.5-5.0); Alkaline Phosphatase 80 U/L (39-117); Anion Gap 14 (12-20); Aspartate Amino Transferase 16 U/L (5-31); Bilirubin Total 0.5 mg/dL (0.0-1.0); Blood Urea Nitrogen 19 mg/dL (9-16); Calcium 9.4 mg/dL (8.4-10.2); Carbon Dioxide 27 mmol/L (22-29); Chloride 100 mmol/L (96-108); Creatinine Clr Calc Pharmacy 79.3; Estimated Glomerular Filt Rate > 60; Glucose Random 216 mg/dL (60-115); Potassium 5.1 mmol/L (3.3-5.1); Sodium 136 mmol/L (135-145); Total Protein 6.9 g/dL (6.5-8.0)
[2022-10-27 13:12] LABS: COVID-19 Test Negative (Negative); IDNOW Serial# 08D9AD1C
[2022-10-27 13:37] VITALS: BP 132/45; PULSE 90; RESP 14; TEMP 36.8; O2SAT 97
[2022-10-27 13:40] LABS: Appearance Urine Clear; Color Urine Yellow; Glucose Urine UA >=1000 mg/dL (Negative); Leukocyte Esterase Urine Trace (Negative); Nitrite Urine Negative (Negative); UMIC TRIGGER UACC YES; Urine Blood Negative (Negative); Urine Ketones Negative (Negative); Urine Protein Negative (Neg-Trace)
[2022-10-27 13:45] LABS: Bacteria Urine None Seen (None Seen); Hyaline Casts Urine 0-2 /LPF (0-2); RBC Urine 0-2 /HPF (0-2); Squamous Epithelial Cell Urine 0-2 /HPF (0-2); WBC Urine 0-5 /HPF (0-5)
--- OUTSIDE RECORDS SUMMARY | 2022-10-27 13:49 | XMS_ITS | Continuity of Care Document ---
Author Name Unknown Organization [facility] Address [address] [place] [id number]- Care Team Providers Care Meat Team Member Name Role Phone Sae Ojeda MD, Brenda Alejo Primary Care Physici an Encounter [facility] Date(s): 08/26/22 - 09/25/22 [facility] [address] [place] [id number]- Allergies, Adverse Reactions, Alerts Substance Reaction Severity Status ibuprofen Active penicillins Active Immunizations Given and Recorded Vaccine Date Status Refusal Reason influenza virus vaccine, inactivated 05/09/14 Give n Medications albuterol CFC free 90 mcg/inh inhalation aerosol 2 puffs, Inhalation, 4 times a day, PRN for wheezing, use with spacer chamber, # 25 Gm, 3 Refills, Maintenance, 06/25/14 8:47:10, Aerosol, 2 puffs Inhalation 4 times a day,PRN:for wheezing,Instr:use with spacer chamber Start Date: 06/25/14 Status: Ordered aspirin 81 mg oral tablet 1 tablet = 81 mg, By Mouth, Daily, # 30 tablet, 11 Refills, Maintenance, 03/19/14 9:10:24, Tablet, 1 tablet By Mouth Daily Start Date: 03/19/14 Status: Ordered atorvastatin 80 mg oral tablet 1 tablet = 80 mg, By Mouth, Daily, # 30 tablet, 6 Refills, Maintenance, 06/08/14 8:56:51, Tablet, please cancel atorvastatin 40mg and all other statin prescriptions, 1 tablet By Mouth Daily,x30 days Start Date: 06/08/14 Stop Date: 01/04/15 Status: Ordered Dexcom G 6 Reciever Dexcom G 6 Reciever, See Instructions, # 1 each, Refills 0, Tot. Refills 0, Maintenance, Used to check BG Dx E1.9, 08/12/22 12:55:00 EST, Supply Start Date: 08/12/22 Status: Ordered Dexcom G-6 Sensor 3 pk Dexcom G-6 Sensor 3 pk, See Instructions, # 3 each, Refills 11, Tot. Refills 11, Maintenance, Use for BG monitoring for type 2 DM. Change every 10 days. E11.65., 08/12/22 12:44:00 EST, Compound Start Date: 08/12/22 Status: Ordered Dexcom G-6 Transmitter Dexcom G-6 Transmitter, See Instructions, # 1 each, Refills 3, Tot. Refills 3, Maintenance, Use forBG monitoring for type 2 DM. Change transmitter every 90 days. Rotate sites. E11.65., 08/12/22 12:45:00 EST, Compound Start Date: 08/12/22 Status: Ordered dx: diabetes dx: diabetes, See Instructions, # 120 each, Refills 11, Tot. Refills 11, Maintenance, free style test strips to check bs 4x a day for diabetes, 11/25/12 14:35:34 Start Date: 11/25/12 Status: Ordered fluticasone 50 mcg/inh nasal spray 1 sprays, Nares, Both, 2 times a day, # 16 Gm, 0 Refills, Maintenance, 07/04/14 9:23:44, [place], 1 sprays Nares, Both 2 times a day Start Date: 07/04/14 Status: Ordered fluticasone CFC free 110 mcg/inh inhalation aerosol 2 puffs, Inhalation, 2 times a day, # 1 each, 11 Refills, Maintenance, 04/02/14 9:55:05, Aerosol, 2puffs Inhalation 2 times a day,x30 days Start Date: 04/02/14 Stop Date: 03/28/15 Status: Ordered Humalog 100 u/ml subcutaneous injection 4-5 units, Subcutaneous Injection, 3 times a day with meals, # 15 mL, 11 Refills, Maintenance, 05/01/14 14:44:46, Solution, 4-5 units Subcutaneous Injection 3 times a day with meals Start Date: 05/01/14 Status: Ordered hydrochlorothiazide 25 mg oral tablet 1 tablet = 25 mg, By Mouth, Daily, # 30 tablet, 6 Refills, Maintenance, 03/19/14 9:13:49, Tablet, 1tablet By Mouth Daily Start Date: 03/19/14 Status: Ordered ibuprofen 600 mg oral tablet 1 tablet, By Mouth, 3 times a day, PRN for pain, # 90 tablet, 0 Refills, Maintenance, 07/01/14 9:42:20, Tablet, 1 tablet By Mouth 3 times a day,x30 days,PRN:for pain Start Date: 07/01/14 Stop Date: 07/31/14 Status: Ordered Lantus Solostar Pen 100 units/mL subcutaneous solution See Instructions, Take 28 units in the AM, and 28 units Subcutaneous Injection Daily at bedtime. E11.9, # 30 mL, 6 Refills, Maintenance, 09/08/22 15:36:00 EST, Solution, [facility], 168, cm, 09/08/22 14:45:00 EST, Height Start Date: 09/08/22 Status: Ordered lisinopril 20 mg oral tablet 1 tablet = 20 mg, By Mouth, Daily, # 30 tablet, 3 Refills, Maintenance, 03/19/14 9:12:36, Tablet, 1tablet By Mouth Daily Start Date: 03/19/14 Status: Ordered MetFORMIN (Eqv-Glucophage XR) 500 mg oral tablet, extended release 2 tablet, By Mouth, 2 times a day, # 360 tablet, 3 Refills, 09/08/22 15:35:00 EST, [facility], 168, cm, 09/08/22 14:45:00 EST, Height Start Date: 09/08/22 Status: Ordered Nicorette 2 mg oral transmucosal gum 1 each = 2 mg, Chew, Every 2 hours, PRN for smoking cessation, for 12 week(s), # 192 each, 6 Refills, Acute 01/17/16 9:01:45, 06/08/14 9:01:45, Gum, 1 each Chew Every 2 hours,x12 week(s),PRN:for smoking cessation Start Date: 06/08/14 Stop Date: 01/17/16 Status: Ordered omeprazole 20 mg oral delayed release tablet 1 tablet = 20 mg, By Mouth, Daily, # 30 tablet, 1 Refills, Maintenance, 04/02/14 9:47:52, 1 tablet By Mouth Daily,x30 days Start Date: 04/02/14 Stop Date: 06/01/14 Status: Ordered omnipod dash 5 pack pods omnipod dash 5 pack pods, See Instructions, # 2 each, Refills 11, Tot. Refills 11, Maintenance, change every 3 days e 11.9, 09/04/22 12:45:00 EST, Supply, 168, cm, 09/03/22 10:21:00 EST, Height Start Date: 09/04/22 Status: Ordered Test Strips See Instructions, # 2 box, Refills 6, Tot. Refills 6, Maintenance, test strips for free style machine, 03/19/14 9:16:43, Compound Start Date: 03/19/14 Status: Ordered Trulicity Pen 3 mg/0.5 mL subcutaneous solution = 3 mg, Subcutaneous Infusion, Every week, # 4 each, 5 Refills, Maintenance, 05/15/21 13:23:00 EDT,[facility]/pharmacy #[id number], Partial fill upon patient request if the prescription is for a schedule II opioid drug., 168, cm, 05/15/21 12:40:00 EDT, Height Start Date: 05/15/21 Stop Date: 11/11/21 Status: Ordered Problem List Condition Confirmation Course Effective Dates Status H ealth Status Informant Asthma 1 Confirmed Active Fibromyalgia syndrome Confirmed Active Hyperlipidemia NOS Confirmed Active Type 2 diabetes, HbA1C goal < 7% Confirmed Active 1no PFTs on record Social History Social History Type Response Smoking Status Current every day jan yen entered on: 04/02/14 Sex Patient Care team information Care Team Personnel Name: Brenda Tovar MD Position: [facility] Outreach Member Role: PCP Address: Address: [address] [place] [address] [address] [place] [address]- Care Team Related Persons Name: CINTHYABERNARDA Address: [address] [place] [address]
--- OUTSIDE RECORDS SUMMARY | 2022-10-27 13:49 | XMS_ITS | Continuity of Care Document ---
Author Name Unknown Organization [facility] Address [address] [place] [address]- Care Team Providers Care Assembler Fitter Name Role Phone Sae Ojeda MD, Brenda Alejo Primary Care Physici an Encounter [facility] Date(s): 09/09/22 - 10/09/22 [facility] [address] [place] [id number] Allergies, Adverse Reactions, Alerts Substance Reaction Severity [...] 16 Gm, 0 Refills, Maintenance, 07/04/14 9:23:44, [place], 1 sprays Nares, Both 2 times a [...] 6 Refills, Maintenance, 09/08/22 15:36:00 EST, Solution, [facility], 168, cm, 09/08/22 14:45:00 EST, Height [...] 360 tablet, 3 Refills, 09/08/22 15:35:00 EST, [facility], 168, cm, 09/08/22 14:45:00 EST, Height [...] 4 each, 5 Refills, Maintenance, 05/15/21 13:23:00 EDT,[facility]/pharmacy #[id number], Partial fill upon patient request if the [...] Care team information Care Team Personnel Name: Sae Ojeda MD, Brenda Alejo Position: [facility] Outreach Member Role: PCP Address: Address: [address] [place] [address] [address] [place] [address]- Care Team Related Persons Name: TIMMY MENDES Address: [address] [place] [address]
--- OUTSIDE RECORDS SUMMARY | 2022-10-27 13:49 | XMS_ITS | Continuity of Care Document ---
Author Name Unknown Organization [facility] Address [address] [place] [address]- Care Team Providers Care Fingerprint Classifier Name Role Phone Sae Ojeda MD, Brenda Alejo Primary Care Physici an Encounter [facility] Date(s): 09/25/22 - 10/25/22 [facility] [address] [place] [id number] Attending Physician: Malcom Mendoza Admitting Physician: AdmMalcom pérez Referring Physician: AdmtrMalcom Allergies, Adverse Reactions, Alerts Substance Reaction Severity [...] Compound Start Date: 08/12/22 Status: Ordered Dexcom G7 3 pack of sensors Dexcom G7 3 pack of sensors, See Instructions, # 3 pack/packet, Refills 11, Tot. Refills 11, Maintenance, Use to monitor blood glucose continuously, change every 10 days, E11.65, 10/16/22 9:14:00 EDT, Supply Start Date: 10/16/22 Status: Ordered dx: diabetes dx: diabetes, See Instructions, # 120 each, Refills 11, Tot. Refills 11, Maintenance, free style test strips to check bs 4x a day for diabetes, 11/25/12 14:35:34 Start Date: 11/25/12 Status: Ordered Fiasp 100 units/mL injectable solution See Instructions, e11.65, use with insulin pump, max daily dose = 45 units, # 20 mL, 5 Refills, Maintenance, 10/16/22 15:24:00 EDT, [facility], Partial fill upon patient request if the prescription is for a schedule II opioid drug.... Start Date: 10/16/22 Status: Ordered fluticasone 50 mcg/inh nasal spray 1 sprays, Nares, Both, 2 times a day, # 16 Gm, 0 Refills, Maintenance, 07/04/14 9:23:44, [place], 1 sprays Nares, Both 2 times a day Start Date: 07/04/14 Status: Ordered fluticasone CFC free 110 mcg/inh inhalation aerosol 2 puffs, Inhalation, 2 times a day, # 1 each, 11 Refills, Maintenance, 04/02/14 9:55:05, Aerosol, 2puffs Inhalation 2 times a day,x30 days Start Date: 04/02/14 Stop Date: 03/28/15 Status: Ordered hydrochlorothiazide 25 mg oral tablet [...] 6 Refills, Maintenance, 09/08/22 15:36:00 EST, Solution, [facility], 168, cm, 09/08/22 14:45:00 EST, Height [...] 360 tablet, 3 Refills, 09/08/22 15:35:00 EST, [facility], 168, cm, 09/08/22 14:45:00 EST, Height [...] 4 each, 5 Refills, Maintenance, 05/15/21 13:23:00 EDT,[facility]/pharmacy #[id number], Partial fill upon patient request if the [...] day jan yen entered on: 04/02/14 Sex Note * Event Display: Non Lab Results Authored Date: [id number] Patient Care team information Care Team Personnel Name: Brenda Tovar MD Position: [facility] Outreach Member Role: PCP Address: Address: [address] [place] [address] [address] [place], [place] [address] Care Team Related Persons Name: TIMMY MENDES Address: [place] [address] [place] [address] [place] [address] Name: VAZQUEZ COSTA
--- NOTE | 2022-10-27 16:02 | PC.NURSE ---
Soap suds enema placed. Pt tolerated well. Pt educated on when to call nurse back into room. No major distress at this time.
--- NOTE | 2022-10-27 16:19 | PC.NURSE ---
Soap suds enema catheter removed. Pt was able to retain fluids for about 2min. Pt now on commode, relieving bowels.
== END 2022-10-27 18:01 | disposition left against medical advice (07) ==
PROVIDERS: Physician Assistant; Emergency Provider Emergency Medicine Emergency Medical Services; PCP Internal Medicine
DX: K59.00 Constipation, unspecified (principal); K62.5 Hemorrhage of anus and rectum; Z20.822 Contact with and (suspected) exposure to COVID-19; E11.9 Type 2 diabetes mellitus without complications; I10 Essential (primary) hypertension; E78.5 Hyperlipidemia, unspecified; F17.210 Nicotine dependence, cigarettes, uncomplicated; Z79.82 Long term (current) use of aspirin; Z79.02 Long term (current) use of antithrombotics/antiplatelets; Z79.899 Other long term (current) drug therapy; Z79.4 Long term (current) use of insulin
CPT/HCPCS: 80053; 81001; 83735; 85025; 87635; 99283; 99284; 99285

== ENCOUNTER 2022-12-16 10:55 | Outpatient (RCR) | payer OTHER, SELFPAY ==
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
== END 2023-04-20 14:51 | disposition home or self-care (01) ==
LOC: HO.OT 10:55
PROVIDERS: PCP Internal Medicine; Visit Provider Physician Assistant
DX: R29.898 Other symptoms and signs involving the musculoskeletal system (principal)
CPT/HCPCS: 97110; 97166

== ENCOUNTER 2023-01-29 10:58 | Outpatient (REF) | payer OTHER, SELFPAY ==
--- NOTE | ~2023-01-29 | XR_ITS ---
EXAMINATION: XR HAND, RIGHT CLINICAL INFORMATION: Pain COMPARISON: Hand radiographs 10/23/2019 TECHNIQUE: 3 views of the hand FINDINGS: No fracture or dislocation. Mild degenerative changes of the distal interphalangeal joints similar to prior. No cortical erosion. Soft tissues are unremarkable. XR/XR hand RT min 3V IMPRESSION: Mild degenerative changes of the hand similar to prior.
== END 2023-01-29 10:59 | disposition home or self-care (01) ==
LOC: HO.HOSX 10:58
PROVIDERS: Visit Provider Orthopaedic Surgery
DX: M79.641 Pain in right hand (principal); M79.601 Pain in right arm; M79.602 Pain in left arm; M79.7 Fibromyalgia
CPT/HCPCS: 73130; 99212

== ENCOUNTER 2023-02-15 16:44 | Emergency (ER) | payer OTHER, SELFPAY ==
--- NOTE | ~2023-02-15 | XR_ITS ---
EXAMINATION: CHEST 2 VIEWS CLINICAL INFORMATION: pain. COMPARISON: 11/01/2021. TECHNIQUE: PA and lateral views of the chest obtained. FINDINGS: The lungs are well expanded. No focal infiltrate, effusion, edema, or pneumothorax. Cardiac and mediastinal silhouettes are within normal limits for technique. No acute bony abnormality seen. Cervical spine hardware again noted XR/XR chest 2V IMPRESSION: No evidence of acute disease.
[2023-02-15 16:47] VITALS: BP 159/63; PULSE 119; RESP 24; TEMP 36; O2SAT 98; BMI 29.0
--- NOTE | 2023-02-15 16:47 | ECG_ITS ---
Test Reason : SHORTNESS OF BREATH Blood Pressure : / mmHG Vent. Rate : 103 BPM Atrial Rate : 103 BPM P-R Int : 136 ms QRS Dur : 074 ms QT Int : 342 ms P-R-T Axes : 057 026 016 degrees QTc Int : 448 ms Sinus tachycardia Nonspecific T wave abnormality Abnormal ECG When compared to the previous EKG of No significant changes seen Referred By: Colby Coffman Electronically Signed By:GABINO BROUSSARD MD
--- NOTE | 2023-02-15 16:47 | ED.GENADULT ---
HPI - General Adult General Chief complaint: Dyspnea Stated complaint: Cant breathe Time Seen by Provider: 02/15/23 17:47 Source: patient, RN notes reviewed and old records reviewed Mode of arrival: ambulatory History of Present Illness HPI narrative: 52-year-old female with a past medical history of asthma, diabetes, fibromyalgia, gastritis, HLD, HTN, migraines, restless legs syndrome, sleep apnea, presenting to the ED complaining of left-sided substernal chest pain radiating to jaw, SOB, and lightheadedness x 3 days. Also reports LUE tingling. Has been using inhalers without relief. Denies fever/chills, pedal edema, recent travel, abdominal pain, nausea/vomiting, SANTOS Onset (ago): day(s) Related Data Home Medications Medication Instructions Recorded Confirmed aspirin 81 mg tablet,delayed 81 mg PO DAILY 06/10/20 09/07/22 release blood-glucose meter #1 ea 06/10/20 09/07/22 blood sugar diagnostic (FreeStyle #10 ea 12/16/20 09/07/22 Lite Strips) lancets 28 gauge #100 ea 12/16/20 09/07/22 pen needle, diabetic 31 gauge x #50 ea 12/16/20 09/07/2210/08 albuterol sulfate 90 mcg/actuation 2 puff PO Q4-6H PRN Wheezing 11/01/21 09/07/22 aerosol inhaler atorvastatin 80 mg tablet 1 tab PO DAILY 11/01/21 09/07/22 benztropine 2 mg tablet 1 tab PO BID 11/01/21 09/07/22 cariprazine 6 mg capsule (Vraylar) 1 cap PO DAILY 11/01/21 09/07/22 cyclobenzaprine 10 mg tablet 1 tab PO TID 11/01/21 09/07/22 duloxetine 60 mg capsule,delayed 1 cap PO BID 11/01/21 09/07/22 release famotidine 40 mg tablet 1 tab PO BEDTIME 11/01/21 09/07/22 fluticasone propionate 110 2 puff PO BID 11/01/21 09/07/22 mcg/actuation HFA aerosol inhaler (Flovent HFA) gabapentin 800 mg tablet 1 tab PO TID 11/01/21 09/07/22 insulin aspart U-100 100 unit/mL 7 unit subcut TID 11/01/21 09/07/22 (3 mL) subcutaneous pen (Novolog FlexPen U-100 Insulin aspart) insulin glargine 100 unit/mL (3 34 unit subcut Q12H 11/01/21 09/07/22 mL) subcutaneous pen (Lantus Solostar U-100 Insulin) lisinopril 20 mg tablet 1 tab PO DAILY 11/01/21 09/07/22 metformin 500 mg tablet,extended 2 tab PO BID 11/01/21 09/07/22 release 24 hr ropinirole 0.25 mg tablet 1 tab PO DAILY 11/01/21 09/07/22 trazodone 50 mg tablet 1 tab PO BEDTIME 11/01/21 09/07/22 zolpidem 10 mg tablet 1 tab PO BEDTIME 11/01/21 09/07/22 clonidine HCl 0.1 mg tablet 0.1 mg PO BID-TID PRN 04/21/22 09/07/22 dulaglutide 3 mg/0.5 mL mg subcut QWEEK 04/21/22 09/07/22 subcutaneous pen injector (Trulicity) empagliflozin 10 mg tablet 10 mg PO QAM 04/21/22 09/07/22 (Jardiance) mirtazapine 7.5 mg tablet 7.5 mg PO BEDTIME 04/21/22 09/07/22 multivitamin-ferrous 0 tab PO 04/21/22 09/07/22 fumarate-folic acid 18 mg-400 mcg tablet (Certavite-Antioxidant) Allergies Allergy/AdvReac Type Severity Reaction Status Date / Time Penicillins [PENICILLINS] Allergy Intermediate HIVES Verified 02/15/23 16:46 ibuprofen Allergy Unknown unknown Verified 02/15/23 16:46 penicillin V Allergy Unknown Unknown Verified 02/15/23 16:46 NSAIDS (Non-Steroidal AdvReac Mild STOMACH Verified 02/15/23 16:46 Anti-Inflamma UPSET [NSAIDS (NON-STEROIDAL ANTI-INFLAMMA] Review of Systems Review of Systems: Constitutional: No Fever, No Chills, No Fatigue, No Malaise ENT/Mouth: No Ear Pain, No Nasal Congestion, No sore throat, No Rhinorrhea, No Swallowing Difficulty Eyes: No Eye Pain, No Swelling, No Redness, No Vision Changes Cardiovascular: + Chest Pain, + SOB, No Dyspnea on Exertion, No Orthopnea, No Edema, No Palpitations Respiratory: No Cough, No Sputum, No Dyspnea Gastrointestinal: No Nausea, No Vomiting, No Diarrhea, No Constipation, No Abdominal pain Genitourinary: No Dysuria, No Urinary Frequency, No Hematuria, No Flank Pain Musculoskeletal: No joint pain, No Myalgias, No Joint Swelling Skin: No Skin Lesions, No rash Neuro: No Weakness, No Numbness, + Paresthesias, No Loss of Consciousness, + lightheaded, No Headache Yes all other systems are reviewed and are negative Constitutional: Constitutional: Reports as per [facility] Past Medical History Attestation statement: The following information was validated with the patient. Source: old records reviewed Medical History Arthritis Arthritis of knee Asthma Diabetes Fibromyalgia Gastritis High cholesterol Hypertension Migraines Restless leg syndrome Sleep apnea T2DM (type 2 diabetes mellitus) Surgical History History of carpal tunnel release History of esophagogastroduodenoscopy (EGD) Hx of arthroscopic knee surgery Hx of breast biopsy Hx of cholecystectomy Hx of fusion of cervical spine Hx of hysterectomy Family History Family History Father No problems noted. Mother HTN (hypertension) Arthritis Diabetes Social History Social History Alcohol intake: never Patient Tobacco Use Status: Current everyday Tobacco user Smoked in Last 30 Days: Yes Use of substances other than those prescribed or required for medical reasons: No Substance Use Type: Crack/Cocaine Advance Directives: No Advance Directives Information Provided: No Current occupational status: unemployed Current occupation: right handed Physical Exam ED Vital Signs: Vital Signs - 24 hr 02/15/23 16:47 02/15/23 17:56 Temperature 96.8 F 98.8 F Pulse Rate 119 H 113 H Respiratory Rate 24 H 18 Blood Pressure 159/63 H 119/66 Pulse Oximetry 98 98 Oxygen Delivery Method Room Air Room Air BMI result Body Mass Index 29.0 Const General: cooperative, healthy appearing, no acute distress and anxious (restless) Orientation/consciousness: patient oriented x3 Limitations: no limitations HENMT Head: Yes normal to inspection and Yes atraumatic Ears: hearing grossly normal bilaterally General nose exam: Normal external nose present Face and sinus: Yes normal facial exam Throat: Yes posterior oropharynx normal Eyes General: appearance normal, both eyes and all related structures EOM: EOMs intact bilaterally Neck Neck: Yes normal visual inspection and Yes no meningeal signs Resp Effort & Inspection: normal respiratory effort, no respiratory distress and no stridor Auscultation: clear to auscultation bilaterally, no crackles, no rales, no rhonchi and no wheezes Cardio Rate: regular rate Heart sounds: S1 normal heart sound present and S2 normal heart sound present Skin Rashes: no rashes Wounds: no wounds Neuro General: patient oriented x3, tone normal and no meningeal signs Gait exam (Neuro): Normal gait present Extrem General: Yes normal to inspection, Yes no pedal edema and Yes no calf tenderness Course Course Course Narrative: RME- 52-year-old female presents for evaluation shortness of breath, chest pain and feeling as though her heart is racing. Symptoms started yesterday. Denies any history of similar. Ordered cardiac workup -1899--labs reassuring. Troponin negative. TSH WNL. Chest x-ray unremarkable Results discussed with patient including worrisome signs and symptoms and strict return precautions, and when to return to the emergency department. They verbalized understanding and feel safe for discharge at this time.m Medical Decision Making Medical Decision Making [facility] Narrative: 52-year-old female with a past medical history of asthma, diabetes, fibromyalgia, gastritis, HLD, HTN, migraines, restless legs syndrome, sleep apnea, presenting to the ED complaining of left-sided substernal chest pain radiating to jaw, SOB, and lightheadedness x 3 days. On exam tachycardic, tachypneic, restless/anxious, persistently moving during entire evaluation, no apparent distress, talking in complete sentences, lungs CTA, no pedal edema/calf tenderness. No focal neuro deficits. Concern for anxiety vs ACS vs asthma exacerbation. Low suspicion for pneumonia, PE, CHF or DVT. Unlikely dissection plan: EKG, labs, CXR Please refer to course for remaining clinical decision making, interpretation of labs/imaging results, and discussions with consultants and/or family members. Differential Diagnosis Differential Diagnoses: The differential diagnosis associated with the presentation includes As above Admission/Observation Consideration of admission/observation: Escalation of care including admission/observation considered Lab Data MDM Lab Attestation statement: I reviewed the patient's lab results. 02/15/23 17:34 02/15/23 17:34 Labs: Lab Results 02/15/23 02/15/23 02/15/23 Range/Units 17:34 17:34 17:34 WBC 9.5 (4.8-10.8) X10*3/uL RBC 5.13 (4.20-5.50) X10*6/uL Hgb 13.4 (12.0-16.0) g/dl Hct 41.5 (37.0-47.0) % MCV 80.9 (80.0-98.0) fL MCH 26.1 L (27.0-33.0) pg MCHC 32.3 (31.0-35.0) g/dl RDW 12.7 (11.0-16.0) % Plt Count 284 (160-400) X10*3/uL MPV 10.0 (9.4-12.3) fL Immature Gran % (Auto) 0.4 (0.0-0.4) % Neut % (Auto) 75.5 H (45-73) % Lymph % (Auto) 15.7 L (20-40) % [place] % (Auto) 5.6 (2-11) % Eos % (Auto) 2.4 (0-4) % Baso % (Auto) 0.4 (0-2) % Lymph # (Auto) 1.5 (1.2-4.9) X10*3/uL [place] # (Auto) 0.5 (0.1-1.2) X10*3/uL Eos # (Auto) 0.2 (0.0-0.4) X10*3/uL Baso # (Auto) 0.0 (0.0-0.2) X10*3/uL Abs Immat Gran (auto) 0.04 H (0.00-0.03) X10*3/uL Absolute Neuts (auto) 7.2 (2.0-8.3) x10*3/uL Absolute Nucleated RBC 0.000 (0.0-0.012) X10*3/uL Nucleated RBC % (auto) 0.0 (0.0-0.2) /100WBC PT 11.5 (10.0-13.1) SEC INR 1.0 (0.9-1.1) APTT 35.7 (26.0-36.4) SEC Sodium 141 (135-145) mmol/L Potassium 4.5 (3.3-5.1) mmol/L Chloride 101 (96-108) mmol/L Carbon Dioxide 30 H (22-29) mmol/L Anion Gap 15 (12-20) BUN 17 H (9-16) mg/dL Creatinine 0.99 (0.5-1.4) mg/dL Estim Creat Clear Calc 67.4 Estimated GFR 58 Random Glucose 163 H (60-115) mg/dL Calcium 10.4 H D (8.4-10.2) mg/dL Total Bilirubin 0.5 (0.0-1.0) mg/dL AST 19 (5-31) U/L ALT 16 (0-31) U/L Alkaline Phosphatase 85 (39-117) U/L Troponin I High Sens (<3.5-17.0) ng/L Total Protein 8.3 H (6.5-8.0) g/dL Albumin 4.7 (3.5-5.0) g/dL Lipase 19 (8-78) U/L TSH 1.26 (0.32-4.0) uIU/mL 02/15/ Range/Units 17:34 WBC (4.8-10.8) X10*3/uL RBC (4.20-5.50) X10*6/uL Hgb (12.0-16.0) g/dl Hct (37.0-47.0) % MCV (80.0-98.0) fL MCH (27.0-33.0) pg MCHC (31.0-35.0) g/dl RDW (11.0-16.0) % Plt Count (160-400) X10*3/uL MPV (9.4-12.3) fL Immature Gran % (Auto) (0.0-0.4) % Neut % (Auto) (45-73) % Lymph % (Auto) (20-40) % [place] % (Auto) (2-11) % Eos % (Auto) (0-4) % Baso % (Auto) (0-2) % Lymph # (Auto) (1.2-4.9) X10*3/uL [place] # (Auto) (0.1-1.2) X10*3/uL Eos # (Auto) (0.0-0.4) X10*3/uL Baso # (Auto) (0.0-0.2) X10*3/uL Abs Immat Gran (auto) (0.00-0.03) X10*3/uL Absolute Neuts (auto) (2.0-8.3) x10*3/uL Absolute Nucleated RBC (0.0-0.012) X10*3/uL Nucleated RBC % (auto) (0.0-0.2) /100WBC PT (10.0-13.1) SEC INR (0.9-1.1) APTT (26.0-36.4) SEC Sodium (135-145) mmol/L Potassium (3.3-5.1) mmol/L Chloride (96-108) mmol/L Carbon Dioxide (22-29) mmol/L Anion Gap (12-20) BUN (9-16) mg/dL Creatinine (0.5-1.4) mg/dL Estim Creat Clear Calc Estimated GFR Random Glucose (60-115) mg/dL Calcium (8.4-10.2) mg/dL Total Bilirubin (0.0-1.0) mg/dL AST (5-31) U/L ALT (0-31) U/L Alkaline Phosphatase (39-117) U/L Troponin I High Sens < 2.7 (<3.5-17.0) ng/L Total Protein (6.5-8.0) g/dL Albumin (3.5-5.0) g/dL Lipase (8-78) U/L TSH (0.32-4.0) uIU/mL Independent Interpretation I performed an independent interpretation of an: EKG (EKG sinus tachycardia rate of 103. OK interval 136. QTC 448. No STEMI.) Radiology Impression Discussion of test interpretation with radiology: I have reviewed the radiologist's reading. External Record Review External record reviewed: Inpatient record, Office record, Outpatient record, Prior outpatient labs, Prior outpatient radiology, Primary care record and Outside ED record Tests considered The following testing was considered but not selected: As above Chronic Conditions Patient?s care impacted by: Diabetes Discharge Plan Discharge Clinical Impression: Atypical chest pain, Shortness of breath Patient Disposition: Home, Self-Care Instructions: Noncardiac Chest Pain (ED), Shortness of Breath (ED) Additional Instructions: Your blood work and chest x-ray are reassuring Please have close follow-up with your PCP Is symptoms persist or worsen return to the emergency department Prescriptions: No Action albuterol sulfate 90 mcg/actuation HFA aerosol inhaler 2 puff PO Q4-6H PRN (Reason: Wheezing) zolpidem 10 mg tablet 1 tab PO BEDTIME benztropine 2 mg tablet 1 tab PO BID duloxetine 60 mg capsule,delayed release(DR/EC) 1 cap PO BID Lantus Solostar U-100 Insulin 100 unit/mL (3 mL) insulin pen 34 unit subcut Q12H famotidine 40 mg tablet 1 tab PO BEDTIME Flovent HFA 110 mcg/actuation HFA aerosol inhaler 2 puff PO BID cyclobenzaprine 10 mg tablet 1 tab PO TID gabapentin 800 mg tablet 1 tab PO TID lisinopril 20 mg tablet 1 tab PO DAILY metformin 500 mg tablet extended release 24 hr 2 tab PO BID insulin aspart U-100 [Novolog FlexPen U-100 Insulin] 100 unit/mL (3 mL) insulin pen 7 unit subcut TID trazodone 50 mg tablet 1 tab PO BEDTIME Vraylar 6 mg capsule 1 cap PO DAILY atorvastatin 80 mg tablet 1 tab PO DAILY ropinirole 0.25 mg tablet 1 tab PO DAILY (DME) blood-glucose meter Kit See Rx Instructions .ROUTE .MEDSUPPLY Qty: 1 Rx Instructions: As directed aspirin 81 mg tablet,delayed release (DR/EC) 81 mg PO DAILY (DME) FreeStyle Lite Strips Strip See Rx Instructions .ROUTE .MEDSUPPLY Qty: 10 Rx Instructions: As directed (DME) lancets 28 gauge misc See Rx Instructions topical TID Qty: 100 Rx Instructions: As directed (DME) pen needle, diabetic 31 gauge x 3/16 needle See Rx Instructions .ROUTE .MEDSUPPLY Qty: 50 Rx Instructions: As directed clonidine HCl 0.1 mg tablet 0.1 mg PO BID-TID PRN Jardiance 10 mg tablet 10 mg PO QAM Trulicity 3 mg/0.5 mL pen injector subcut QWEEK Certavite-Antioxidant 18-400 mg-mcg tablet 0 tab PO mirtazapine 7.5 mg tablet 7.5 mg PO BEDTIME Referrals: Brenda Tovar MD [Primary Care Provider] - 3 days
[2023-02-15 17:39] LABS: MANUAL DIFF FLAG NO
[2023-02-15 17:45] LABS: Prothrombin Time 11.5 SEC (10.0-13.1)
[2023-02-15 17:48] LABS: Partial Thromboplastin Time 35.7 SEC (26.0-36.4)
[2023-02-15 17:50] LABS: Basophils Percent Auto 0.4 % (0-2); Eosinophils Absolute Auto 0.2 X10*3/uL (0.0-0.4); Eosinophils Percent Auto 2.4 % (0-4); Hematocrit 41.5 % (37.0-47.0); Hemoglobin 13.4 g/dl (12.0-16.0); Imm Gran Abs Auto 0.04 X10*3/uL (0.00-0.03); Imm Gran Pct Auto 0.4 % (0.0-0.4); Lymphocytes Absolute Auto 1.5 X10*3/uL (1.2-4.9); Lymphocytes Percent Auto 15.7 % (20-40); Mean Corpuscular HGB Conc 32.3 g/dl (31.0-35.0); Mean Corpuscular Hemoglobin 26.1 pg (27.0-33.0); Mean Corpuscular Volume 80.9 fL (80.0-98.0); Monocytes Absolute Auto 0.5 X10*3/uL (0.1-1.2); Monocytes Percent Auto 5.6 % (2-11); Neutrophils Absolute Auto 7.2 x10*3/uL (2.0-8.3); Neutrophils Percent Auto 75.5 % (45-73); Platelet Count 284 X10*3/uL (160-400); Red Blood Count 5.13 X10*6/uL (4.20-5.50); Red Cell Distribution Width 12.7 % (11.0-16.0); White Blood Count 9.5 X10*3/uL (4.8-10.8)
[2023-02-15 17:56] VITALS: BP 119/66; PULSE 113; RESP 18; TEMP 37.1; O2SAT 98
[2023-02-15 18:02] LABS: Alanine Aminotransferase 16 U/L (0-31); Albumin Level 4.7 g/dL (3.5-5.0); Alkaline Phosphatase 85 U/L (39-117); Anion Gap 15 (12-20); Aspartate Amino Transferase 19 U/L (5-31); Bilirubin Total 0.5 mg/dL (0.0-1.0); Blood Urea Nitrogen 17 mg/dL (9-16); Calcium 10.4 mg/dL (8.4-10.2); Carbon Dioxide 30 mmol/L (22-29); Chloride 101 mmol/L (96-108); Creatinine Clr Calc Pharmacy 67.4; Estimated Glomerular Filt Rate 58; Glucose Random 163 mg/dL (60-115); Lipase 19 U/L (8-78); Potassium 4.5 mmol/L (3.3-5.1); Sodium 141 mmol/L (135-145); Total Protein 8.3 g/dL (6.5-8.0)
--- OUTSIDE RECORDS SUMMARY | 2023-02-15 18:03 | XMS_ITS | Continuity of Care Document ---
Author Name Unknown Organization [facility] Address [address] [place] [address]- Care Team Providers Care Attending Anesthesiologist Name Role Phone Sae Ojeda MD, Brenda Alejo Primary Care Physici an Encounter [facility] Date(s): 10/28/22 - 11/27/22 [facility] [address] [place] [phone]- Allergies, Adverse Reactions, Alerts Substance Reaction Severity [...] Maintenance, Used to check BG Dx E1.9, 10/28/22 9:15:00 EDT, Supply, 168, cm, 10/16/22 9:27:00 EDT, Height Start Date: 10/28/22 Status: Ordered Dexcom G-6 Sensor 3 pk Dexcom G-6 Sensor 3 pk, See Instructions, # 3 each, Refills 11, Tot. Refills 11, Maintenance, Use for BG monitoring for type 2 DM. Change every 10 days. E11.65., 10/28/22 9:13:00 EDT, Compound, 168, cm, 10/16/22 9:27:00 EDT, Height Start Date: 10/28/22 Status: Ordered Dexcom G-6 Transmitter Dexcom G-6 Transmitter, See Instructions, # 1 each, Refills 3, Tot. Refills 3, Maintenance, Use forBG monitoring for type 2 DM. Change transmitter every 90 days. Rotate sites. E1165., 11/03/22 13:46:00 EDT, Compound, 168, cm, 10/16/22 9:27:00 EDT,... Start Date: 11/03/22 Status: Ordered Dexcom G7 3 pack of sensors Dexcom G7 3 pack of sensors, See Instructions, # 3 pack/packet, Refills 11, Tot. Refills 11, Maintenance, Use to monitor blood glucose continuously, change every 10 days, E11.65, 11/03/22 13:46:00 EDT, Supply, 168, cm, 10/16/22 9:27:00 EDT, Height Start Date: 11/03/22 Status: Ordered dx: diabetes dx: diabetes, See Instructions, # 120 each, Refills 11, Tot. Refills 11, Maintenance, free style test strips to check bs 4x a day for diabetes, 11/25/12 14:35:34 Start Date: 11/25/12 Status: Ordered Fiasp 100 units/mL injectable solution See Instructions, e11.65, use with insulin pump, max daily dose = 45 units, # 20 mL, 5 Refills, Maintenance, 10/16/22 15:24:00 EDT, [facility], Partial fill upon patient request if the prescription is for a schedule II opioid drug.... Start Date: 10/16/22 Status: Ordered fluticasone 50 mcg/inh nasal spray 1 sprays, Nares, Both, 2 times a day, # 16 Gm, 0 Refills, Maintenance, 07/04/14 9:23:44, [place], 1 sprays Nares, Both 2 times a day Start Date: 07/04/14 Status: Ordered fluticasone CFC free 110 mcg/inh inhalation aerosol 2 puffs, Inhalation, 2 times a day, # 1 each, 11 Refills, Maintenance, 04/02/14 9:55:05, Aerosol, 2puffs Inhalation 2 times a day,x30 days Start Date: 04/02/14 Stop Date: 03/28/15 Status: Ordered Humalog Kwik Pen 100 units/mL subcutaneous injection See Instructions, Use 3x/day Pump Failure SS MDD 60 units BG 100-149 10 units 150- 199 12 units 200- 249 14 units 250-299 16 units 300-349 18 units BG> 350 20 units DX E11.9 FILL HUMAL... Start Date: 11/09/22 Status: Ordered hydrochlorothiazide 25 mg oral tablet [...] Date: 07/01/14 Stop Date: 07/31/14 Status: Ordered Insulin Lispro KwikPen 100 units/mL injectable solution See Instructions, Take 3 times daily before meals as follows. E11.9 Max daily dose 60 units. Insulin sliding scale: BG 100-149mg/dl take 10 units BG 150- 199mg/dl take 12 units BG 200-249mg/dl take 14units BG 250-299mg/dl take 16 units BG 300... Start Date: 11/06/22 Status: Ordered Lantus Solostar Pen 100 units/mL subcutaneous solution See Instructions, Take 21 units Daily at bedtime. E11.9, # 30 mL, 6 Refills, Maintenance, 11/06/22 12:30:00 EDT, Solution, [facility]pharmacy #[id number], 168, cm, 10/16/22 9:27:00 EDT, Height Start Date: 11/06/22 Status: Ordered lisinopril 20 mg oral tablet 1 tablet = 20 mg, By Mouth, Daily, # 30 tablet, 3 Refills, Maintenance, 03/19/14 9:12:36, Tablet, 1tablet By Mouth Daily Start Date: 03/19/14 Status: Ordered MetFORMIN (Eqv-Glucophage XR) 500 mg oral tablet, extended release 2 tablet, By Mouth, 2 times a day, # 360 tablet, 3 Refills, 09/08/22 15:35:00 EST, [facility], 168, cm, 09/08/22 14:45:00 EST, Height Start Date: 09/08/22 Status: Ordered Nicorette 2 mg oral transmucosal gum 1 each = 2 mg, Chew, Every 2 hours, PRN for smoking cessation, for 12 week(s), # 192 each, 6 Refills, Acute 01/17/16 9:01:45, 06/08/14 9:01:45, Gum, 1 each Chew Every 2 hours,x12 week(s),PRN:for smoking cessation Start Date: 06/08/14 Stop Date: 01/17/16 Status: Ordered NovoLOG FlexPen 100 units/mL injectable solution See Instructions, use 3x /day Pump Failure SS MDD 60 U BG 100-149 10 U 150-199 12 U 200-249 14 U 250-299 16 U 300-349 18 U BG > 350 20 U Dx E11.9, # 30 mL, 6 Refills, Maintenance, ... Start Date: 11/09/22 Status: Ordered omeprazole 20 mg oral delayed [...] Maintenance, change every 3 days e 11.9, 11/09/22 9:34:00 EDT, Supply, 168, cm, 10/16/22 9:27:00 EDT, Height Start Date: 11/09/22 Status: Ordered Pen [place], 31 G x 8 mm BD Ultra Fine III See Instructions, # 150 each, Refills 5, Tot. Refills 5, Maintenance, use as directed for Type 2 Diabetes Mellitus to give insulin 4x daily. E11.9, 11/06/22 13:03:00 EDT, Supply, 168, cm, 10/16/22 9:27:00 EDT, Height Start Date: 11/06/22 Stop Date: 05/05/23 Status: Ordered Test Strips See Instructions, # 2 box, Refills 6, Tot. Refills 6, Maintenance, test strips for free style machine, 03/19/14 9:16:43, Compound Start Date: 03/19/14 Status: Ordered Trulicity Pen 3 mg/0.5 mL subcutaneous solution = 3 mg, Subcutaneous Infusion, Every week, # 4 each, 5 Refills, Maintenance, 05/15/21 13:23:00 EDT,[id number], Partial fill upon patient request if the [...] Team Personnel Name: Brenda Tovar MD Position: [facility] Outreach Member Role: PCP Address: Address: [address] [place] [address] [address] [place] [address]- Care Team Related Persons Name: TIMMY MENDES Address: home [address] [place] [address] Name: VAZQUEZ COSTA
--- OUTSIDE RECORDS SUMMARY | 2023-02-15 18:03 | XMS_ITS | Continuity of Care Document ---
Author Name Unknown Organization [facility] Address [address] [place] [address]- Care Team Providers Care Literacy Teacher Name Role Phone Sae Ojeda MD, Brenda Alejo Primary Care Physici an Encounter [facility] Date(s): 10/16/22 - 11/15/22 [facility] [address] [place] [phone]- Allergies, Adverse Reactions, Alerts Substance Reaction Severity [...] mL, 5 Refills, Maintenance, 10/16/22 15:24:00 EDT, [facility], Partial fill upon patient request if the prescription is for a schedule II opioid drug.... Start Date: 10/16/22 Status: Ordered fluticasone 50 mcg/inh nasal spray 1 sprays, Nares, Both, 2 times a day, # 16 Gm, 0 Refills, Maintenance, 07/04/14 9:23:44, [place], 1 sprays Nares, Both 2 times a [...] 6 Refills, Maintenance, 11/06/22 12:30:00 EDT, Solution, [facility]/pharmacy #[id number], 168, cm, 10/16/22 9:27:00 EDT, Height [...] 360 tablet, 3 Refills, 09/08/22 15:35:00 EST, [facility], 168, cm, 09/08/22 14:45:00 EST, Height [...] Height Start Date: 11/09/22 Status: Ordered Pen [place], 31 G x 8 mm BD Ultra [...] each, 5 Refills, Maintenance, 05/15/21 13:23:00 EDT,[id number], Partial fill upon patient request if the [...] Team Personnel Name: Brenda Tovar MD Position: [facility] Outreach Member Role: PCP Address: Address: [address] [place] [address] [address] [place] [address]- Care Team Related Persons Name: TIMMY MENDES Address: home [address] [place] [address] Name: VAZQUEZ COSTA
--- OUTSIDE RECORDS SUMMARY | 2023-02-15 18:03 | XMS_ITS | Continuity of Care Document ---
Author Name Unknown Organization [facility] Address [address] [place] [address]- Care Team Providers Care User Support Analyst Supervisor Name Role Phone Sae Ojeda MD, Brenda Alejo Primary Care Physici an Encounter [facility] Date(s): 11/03/22 - 12/03/22 [facility] [address] [place] [phone]- Allergies, Adverse Reactions, Alerts Substance Reaction Severity [...] glucose continuously, change every 10 days, E11.65, 12/02/22 15:39:00 EDT, Supply, 168, cm, 10/16/22 9:27:00 EDT, Height Start Date: 12/02/22 Status: Ordered dx: diabetes dx: diabetes, See Instructions, # 120 each, Refills 11, Tot. Refills 11, Maintenance, free style test strips to check bs 4x a day for diabetes, 11/25/12 14:35:34 Start Date: 11/25/12 Status: Ordered Fiasp 100 units/mL injectable solution See Instructions, e11.65, use with insulin pump, max daily dose = 45 units, # 20 mL, 5 Refills, Maintenance, 10/16/22 15:24:00 EDT, [facility], Partial fill upon patient request if the prescription is for a schedule II opioid drug.... Start Date: 10/16/22 Status: Ordered fluticasone 50 mcg/inh nasal spray 1 sprays, Nares, Both, 2 times a day, # 16 Gm, 0 Refills, Maintenance, 07/04/14 9:23:44, [place], 1 sprays Nares, Both 2 times a [...] 6 Refills, Maintenance, 11/06/22 12:30:00 EDT, Solution, [facility]/pharmacy #[id number], 168, cm, 10/16/22 9:27:00 EDT, Height [...] 360 tablet, 3 Refills, 09/08/22 15:35:00 EST, [facility], 168, cm, 09/08/22 14:45:00 EST, [...] Maintenance, change every 3 days e 11.9, 12/02/22 15:39:00 EDT, Supply, 168, cm, 10/16/22 9:27:00 EDT, Height Start Date: 12/02/22 Status: Ordered Pen [place], 31 G x 8 mm BD Ultra [...] each, 5 Refills, Maintenance, 05/15/21 13:23:00 EDT,[id number], Partial fill upon patient request if the [...] Team Personnel Name: Brenda Tovar MD Position: [facility] Outreach Member Role: PCP Address: Address: [address] [place] [address] [address] [place] [address]- Care Team Related Persons Name: TIMMY MENDES Address: home [address] [place] [address] Name: VAZQUEZ COSTA
--- OUTSIDE RECORDS SUMMARY | 2023-02-15 18:03 | XMS_ITS | Continuity of Care Document ---
Author Name Unknown Organization [facility] Endocrinolo gy and Diabetes Address [address] [place] [address]- Care Team Providers Care Painter Rough Name Role Phone Sae Ojeda MD, Brenda Alejo Primary Care Physici an Encounter [facility] Date(s): 11/05/22 - 12/05/22 [facility] Endocrinology and Diabetes [address] [place] [phone]- Allergies, Adverse Reactions, Alerts Substance Reaction Severity [...] mL, 5 Refills, Maintenance, 10/16/22 15:24:00 EDT, [facility], Partial fill upon patient request if the prescription is for a schedule II opioid drug.... Start Date: 10/16/22 Status: Ordered fluticasone 50 mcg/inh nasal spray 1 sprays, Nares, Both, 2 times a day, # 16 Gm, 0 Refills, Maintenance, 07/04/14 9:23:44, [place], 1 sprays Nares, Both 2 times a [...] 6 Refills, Maintenance, 11/06/22 12:30:00 EDT, Solution, [facility]/pharmacy #[id number], 168, cm, 10/16/22 [...] 360 tablet, 3 Refills, 09/08/22 15:35:00 EST, [facility], 168, cm, 09/08/22 14:45:00 EST, [...] Height Start Date: 12/02/22 Status: Ordered Pen [place], 31 G x 8 mm BD Ultra [...] each, 5 Refills, Maintenance, 05/15/21 13:23:00 EDT,[id number], Partial fill upon patient request if the [...] Team Personnel Name: Brenda Tovar MD Position: [facility] Outreach Member Role: PCP Address: Address: [address] [place] [address] [address] [place] [address]- Care Team Related Persons Name: TIMMY MENDES Address: home [address] [place] [address] Name: VAZQUEZ COSTA
--- OUTSIDE RECORDS SUMMARY | 2023-02-15 18:03 | XMS_ITS | Continuity of Care Document ---
Author Name Unknown Organization [facility] Endocrinolo gy and Diabetes Address [address] [place] [address]- Care Team Providers Care Wire Straightening Machine Operator Name Role Phone Sae Ojeda MD, Brenda Alejo Primary Care Physici an Encounter [facility] Date(s): 11/09/22 - 12/09/22 [facility] Endocrinology and Diabetes [address] [place] [phone]- Allergies, Adverse Reactions, Alerts Substance Reaction Severity [...] mL, 5 Refills, Maintenance, 10/16/22 15:24:00 EDT, [facility], Partial fill upon patient request if the prescription is for a schedule II opioid drug.... Start Date: 10/16/22 Status: Ordered fluticasone 50 mcg/inh nasal spray 1 sprays, Nares, Both, 2 times a day, # 16 Gm, 0 Refills, Maintenance, 07/04/14 9:23:44, [place], 1 sprays Nares, Both 2 times a [...] 6 Refills, Maintenance, 11/06/22 12:30:00 EDT, Solution, [facility]/pharmacy #[id number], 168, cm, 10/16/22 9:27:00 [...] 360 tablet, 3 Refills, 09/08/22 15:35:00 EST, [facility], 168, cm, 09/08/22 14:45:00 EST, [...] Height Start Date: 12/02/22 Status: Ordered Pen [place], 31 G x 8 mm BD Ultra [...] each, 5 Refills, Maintenance, 05/15/21 13:23:00 EDT,[id number], Partial fill upon patient request if the [...] Team Personnel Name: Brenda Tovar MD Position: [facility] Outreach Member Role: PCP Address: Address: [address] [place] [address] [address] [place] [address]- Care Team Related Persons Name: TIMMY MENDES Address: home [address] [place] [address] Name: VAZQUEZ COSTA
--- OUTSIDE RECORDS SUMMARY | 2023-02-15 18:03 | XMS_ITS | Continuity of Care Document ---
Author Name Unknown Organization [facility] Endocrinolo gy and Diabetes Address [address] [place] [address]- Care Team Providers Care Rolling Chair Pusher Name Role Phone Sae Ojeda MD, Brenda Alejo Primary Care Physici an Encounter [facility] Date(s): 11/09/22 - 12/09/22 [facility] Endocrinology and Diabetes [address] [place] [phone]- Allergies, Adverse Reactions, Alerts Substance Reaction Severity [...] mL, 5 Refills, Maintenance, 10/16/22 15:24:00 EDT, [facility], Partial fill upon patient request if the prescription is for a schedule II opioid drug.... Start Date: 10/16/22 Status: Ordered fluticasone 50 mcg/inh nasal spray 1 sprays, Nares, Both, 2 times a day, # 16 Gm, 0 Refills, Maintenance, 07/04/14 9:23:44, [place], 1 sprays Nares, Both 2 times a [...] 6 Refills, Maintenance, 11/06/22 12:30:00 EDT, Solution, [facility]/pharmacy #[id number], 168, cm, 10/16/22 9:27:00 EDT, [...] 360 tablet, 3 Refills, 09/08/22 15:35:00 EST, [facility], 168, cm, 09/08/22 14:45:00 EST, [...] Height Start Date: 12/02/22 Status: Ordered Pen [place], 31 G x 8 mm BD Ultra [...] each, 5 Refills, Maintenance, 05/15/21 13:23:00 EDT,[id number], Partial fill upon patient request if the [...] Team Personnel Name: Brenda Tovar MD Position: [facility] Outreach Member Role: PCP Address: Address: [address] [place] [address] [address] [place] [address]- Care Team Related Persons Name: TIMMY MENDES Address: home [address] [place] [address] Name: VAZQUEZ COSTA
--- OUTSIDE RECORDS SUMMARY | 2023-02-15 18:03 | XMS_ITS | Continuity of Care Document ---
Author Name Unknown Organization [facility] Endocrinolo gy and Diabetes Address [address] [place] [address]- Care Team Providers Care Early Breastfeeding Care Specialist Name Role Phone Sae Ojeda MD, Brenda Alejo Primary Care Physici an Encounter [facility] Date(s): 11/06/22 - 12/06/22 [facility] Endocrinology and Diabetes [address] [place] [phone]- Allergies, Adverse Reactions, Alerts Substance Reaction Severity [...] mL, 5 Refills, Maintenance, 10/16/22 15:24:00 EDT, [facility], Partial fill upon patient request if the prescription is for a schedule II opioid drug.... Start Date: 10/16/22 Status: Ordered fluticasone 50 mcg/inh nasal spray 1 sprays, Nares, Both, 2 times a day, # 16 Gm, 0 Refills, Maintenance, 07/04/14 9:23:44, [place], 1 sprays Nares, Both 2 times a [...] 6 Refills, Maintenance, 11/06/22 12:30:00 EDT, Solution, [facility]/pharmacy #[id number], 168, cm, 10/16/22 9:27:00 EDT, Height [...] 360 tablet, 3 Refills, 09/08/22 15:35:00 EST, [facility], 168, cm, 09/08/22 14:45:00 EST, [...] Height Start Date: 12/02/22 Status: Ordered Pen [place], 31 G x 8 mm BD Ultra [...] each, 5 Refills, Maintenance, 05/15/21 13:23:00 EDT,[id number], Partial fill upon patient request if the [...] Team Personnel Name: Brenda Tovar MD Position: [facility] Outreach Member Role: PCP Address: Address: [address] [place] [address] [address] [place] [address]- Care Team Related Persons Name: TIMMY MENDES Address: home [address] [place] [address] Name: VAZQUEZ COSTA
[2023-02-15 18:05] LABS: Troponin-I High Sensitivity < 2.7 ng/L (<3.5-17.0)
--- NOTE | 2023-02-15 18:06 | PC.NURSE ---
pt axox4, vss, sats 98% RA, respirations even and unlabored, cap refill <3 secs, lung sounds cta, skin wpd. pt states sob/cp x 3 days; worse today. pt denies cough/v/d; reports nausea at times. pt speaking full clear sentences. PA to bedside; no further orders at this time. family member at bedside.
[2023-02-15 18:17] LABS: TSH reflex Free T4 1.26 uIU/mL (0.32-4.0)
[2023-02-15] MEDS: Albuterol Sulfate 90 MCG 8 GM INHALER 2 PUFF INHALE (19:16)
[2023-02-15 19:19] VITALS: PULSE 97; RESP 18; O2SAT 97
== END 2023-02-15 19:53 | disposition home or self-care (01) ==
PROVIDERS: Physician Assistant; Emergency Provider Student in an Organized Health Care Education/Training Program; PCP Internal Medicine
DX: R07.89 Other chest pain (principal); R06.02 Shortness of breath; E11.9 Type 2 diabetes mellitus without complications; I10 Essential (primary) hypertension; E78.5 Hyperlipidemia, unspecified; Z79.82 Long term (current) use of aspirin; Z79.899 Other long term (current) drug therapy; Z79.4 Long term (current) use of insulin
CPT/HCPCS: 36415; 71046; 80053; 83690; 84443; 84484; 85025; 85610; 85730; 93005; 94640; 99284; 99285

== ENCOUNTER → 2023-02-15 16:47 | Outpatient (BNV) | payer OTHER, SELFPAY | PROVIDERS: Emergency Provider Student in an Organized Health Care Education/Training Program; PCP Internal Medicine; Visit Provider Internal Medicine Cardiovascular Disease | DX: R06.02 Shortness of breath (principal) | CPT/HCPCS: 93010 ==

== ENCOUNTER 2023-03-05 15:14 | Emergency (ER) | payer OTHER, SELFPAY ==
[2023-03-05 16:01] VITALS: BP 124/81; PULSE 97; RESP 16; TEMP 36.6; O2SAT 98; BMI 25.8
--- NOTE | 2023-03-05 16:01 | ED_ITS ---
HPI - General Adult General Chief complaint: Abdominal Pain Stated complaint: abd pain Time Seen by Provider: 03/05/23 20:42 Source: patient Mode of arrival: ambulatory Limitations: no limitations History of Present Illness HPI narrative: Patient is a 52 year old assigned female at with a history of DM and fibr omyalgia presenting to the emergency department today with epigastric pain. Patient states that over the last month she has had epigastric pain. Patient denies any dizziness, lightheadedness, nausea, vomiting, fever, chills, blurry vision, double vision, loss of vision, chest pain, difficulty breathing, shortness of breath, back pain, night sweats, pain with urination, increased urinary frequency, increased urinary urgency, blood in her urine or stool, syncope or a near syncopal episode, recent trauma or falls, bowel incontinence, bladder incontinence, bowel retention, bladder retention, or any other complaints at this time. Onset (ago): month(s) Location: abdomen Radiation: non-radiation Severity: mild Severity scale (1-10): 4 Relieving factors: none Exacerbating factors: none Associated symptoms: denies other symptoms Treatments prior to arrival: none Related Data Home Medications Medication Instructions Recorded Confirmed aspirin 81 mg tablet,delayed 81 mg PO DAILY 06/10/20 09/07/22 release blood-glucose meter #1 ea 06/10/20 09/07/22 blood sugar diagnostic (FreeStyle #10 ea 12/16/20 09/07/22 Lite Strips) lancets 28 gauge #100 ea 12/16/20 09/07/22 pen needle, diabetic 31 gauge x #50 ea 12/16/20 09/07/2210/08 albuterol sulfate 90 mcg/actuation 2 puff PO Q4-6H PRN Wheezing 11/01/21 09/07/22 aerosol inhaler atorvastatin 80 mg tablet 1 tab PO DAILY 11/01/21 09/07/22 benztropine 2 mg tablet 1 tab PO BID 11/01/21 09/07/22 cariprazine 6 mg capsule (Vraylar) 1 cap PO DAILY 11/01/21 09/07/22 cyclobenzaprine 10 mg tablet 1 tab PO TID 11/01/21 09/07/22 duloxetine 60 mg capsule,delayed 1 cap PO BID 11/01/21 09/07/22 release famotidine 40 mg tablet 1 tab PO BEDTIME 11/01/21 09/07/22 fluticasone propionate 110 2 puff PO BID 11/01/21 09/07/22 mcg/actuation HFA aerosol inhaler (Flovent HFA) gabapentin 800 mg tablet 1 tab PO TID 11/01/21 09/07/22 insulin aspart U-100 100 unit/mL 7 unit subcut TID 11/01/21 09/07/22 (3 mL) subcutaneous pen (Novolog FlexPen U-100 Insulin aspart) insulin glargine 100 unit/mL (3 34 unit subcut Q12H 11/01/21 09/07/22 mL) subcutaneous pen (Lantus Solostar U-100 Insulin) lisinopril 20 mg tablet 1 tab PO DAILY 11/01/21 09/07/22 metformin 500 mg tablet,extended 2 tab PO BID 11/01/21 09/07/22 release 24 hr ropinirole 0.25 mg tablet 1 tab PO DAILY 11/01/21 09/07/22 trazodone 50 mg tablet 1 tab PO BEDTIME 11/01/21 09/07/22 zolpidem 10 mg tablet 1 tab PO BEDTIME 11/01/21 09/07/22 clonidine HCl 0.1 mg tablet 0.1 mg PO BID-TID PRN 04/21/22 09/07/22 dulaglutide 3 mg/0.5 mL mg subcut QWEEK 04/21/22 09/07/22 subcutaneous pen injector (Trulicity) empagliflozin 10 mg tablet 10 mg PO QAM 04/21/22 09/07/22 (Jardiance) mirtazapine 7.5 mg tablet 7.5 mg PO BEDTIME 04/21/22 09/07/22 multivitamin-ferrous 0 tab PO 04/21/22 09/07/22 fumarate-folic acid 18 mg-400 mcg tablet (Certavite-Antioxidant) Allergies Allergy/AdvReac Type Severity Reaction Status Date / Time Penicillins [PENICILLINS] Allergy Intermediate HIVES Verified 03/05/23 16:03 ibuprofen Allergy Unknown unknown Verified 03/05/23 16:03 penicillin V Allergy Unknown Unknown Verified 03/05/23 16:03 NSAIDS (Non-Steroidal AdvReac Mild STOMACH Verified 03/05/23 16:03 Anti-Inflamma UPSET [NSAIDS (NON-STEROIDAL ANTI-INFLAMMA] Review of Systems Constitutional: Constitutional: Reports no additional constitutional complaints, Denies chills, Denies fever(s) and Denies night sweats Eyes: Eyes: Reports no additional eye complaints, Denies blurry vision, Denies change in vision, Denies diplopia, Denies eye discharge, Denies loss of vision and Denies eye pain ENT: Denies dizziness Cardiovascular: Cardiovascular: Reports no additional cardiovascular complaints, Denies chest pain, Denies lightheadedness, Denies Loss of Consciousness and Denies dyspnea Respiratory: Respiratory: Reports no additional respiratory complaints and Denies dyspnea Gastrointestinal: Gastrointestinal: Reports no additional gastrointestinal complaints, Reports abdominal pain, Denies melena, Denies hematochezia, Denies change in bowel habits and Denies change in stool character Genitourinary: Genitourinary: Denies hematuria, Denies urinary frequency, Denies dysuria, Denies urinary incontinence, Denies urinary hesitancy and Denies urinary urgency Musculoskeletal: Musculoskeletal: Reports no additional musculoskeletal complaints, Denies numbness and Denies tingling Neurologic: Denies dizziness, Denies loss of vision, Denies numbness and Denies tingling Psychiatric: Psychiatric: Reports no additional psychiatric complaints Endocrine: Endocrine: Reports no additional endocrine complaints Hematologic/Lymphatic: Hematologic/Lymphatic: Reports no additional hematologic/lymphatic complaints Allergic/Immunologic: Allergic/Immunologic: Reports no additional al lergic/immunologic complaints PMFSH Past Medical History Attestation statement: The following information was validated with the patient. Source: old records reviewed and nursing notes reviewed Medical History Arthritis Arthritis of knee Asthma Diabetes Fibromyalgia Gastritis High cholesterol Hypertension Migraines Restless leg syndrome Sleep apnea T2DM (type 2 diabetes mellitus) Surgical History History of carpal tunnel release History of esophagogastroduodenoscopy (EGD) Hx of arthroscopic knee surgery Hx of breast biopsy Hx of cholecystectomy Hx of fusion of cervical spine Hx of hysterectomy Family History Family History Father No problems noted. Mother HTN (hypertension) Arthritis Diabetes Social History Social History Alcohol intake: never Patient Tobacco Use Status: Current everyday Tobacco user Substance Use Type: Crack/Cocaine Current occupational status: unemployed Current occupation: right handed Physical Exam ED Vital Signs: Vital Signs - 24 hr 03/05/23 16:01 03/05/23 20:45 Temperature 98 F 97.9 F Pulse Rate 97 95 Respiratory Rate 16 20 Blood Pressure 124/81 138/82 Pulse Oximetry 98 95 Oxygen Delivery Method Room Air Room Air BMI result Body Mass Index 25.8 Const General: cooperative, no acute distress, alert and awake Nutritional Appearance: well nourished Orientation/consciousness: patient oriented x3 Limitations: no limitations HENMT Head: Yes normal to inspection and Yes atraumatic Ears: hearing grossly normal bilaterally and external ears normal General nose exam: Normal external nose present, no nasal discharge noted and no epistaxis Face and sinus: Yes normal facial exam, No abrasion and No laceration Mouth: Normal oral and palatal mucosa present, no drooling and no muffled voice Eyes General: appearance normal, both eyes and all related structures Periorbital: periorbital findings normal Eyelids: Yes eyelids normal Conjunctivae: conjunctivae normal Pupils: Equal, round and reactive pupils present EOM: EOMs intact bilaterally Neck Neck: Yes normal visual inspection, Yes full ROM and Yes no lymphadenopathy Chest Chest palpation & inspection: normal inspection of the chest Resp Effort & Inspection: normal respiratory effort and able to speak in complete sentences Auscultation: clear to auscultation bilaterally Cardio Rate: regular rate Rhythm: regular rhythm GI Inspection: Yes normal to inspection Palpation (GI): Soft to palpation, not firm, nontender and no guarding Neuro General: patient oriented x3 and moves all extremities Cranial nerves: Yes Equal, round and reactive pupils present Cognition (Neuro): normal cognition Motor exam (neuro): 5/5 motor strength present throughout Sensory Exam: Normal double simultaneous stimulation for sensation Coordination: [id number] test normal Extrem General: Yes normal to inspection, Yes full ROM and Yes capillary refill normal Psych Appearance: grossly normal Mental Status: mental status grossly normal Affect: normal affect Attitude: cooperative Thought process: Normal thought process present Thought content: Normal thought content present Insight: Good insight present (Psych) Course Course Course Narrative: This is an RME: Additional HPI, ROS, PE not included below will be deferred to primary provider. Patient is a 52 year old female with a history of type 2 DM presenting with epigastric pain. She has had chills, nausea but no vomiting. Patient explains she has had pain for months but got worse today. Plan: labs, urine Medications Administered Discontinued Medications Generic Name Dose Route Start Last Admin Trade Name Gerardo PRN Reason Stop Dose Admin Al Hydroxide/Mg Hydroxide 15 ml 03/05/23 20:43 03/05/23 22:01 Magnesium Hydrox/Alum Hydrox 30 Ml Oral.Susp PO 03/05/23 20:44 15 ml ONCE ONE Administration Diphenhydramine HCl 25 mg 03/05/23 21:20 03/05/23 22:00 Diphenhydramine Hcl 25 Mg Capsule PO 03/05/23 21:21 25 mg ONCE ONE Administration Omeprazole 40 mg 03/05/23 20:43 03/05/23 22:01 Omeprazole 40 Mg Capsule. PO 03/05/23 20:44 40 mg ONCE ONE Administration Medical Decision Making Medical Decision Making [facility] Narrative: Patient is a 52 year old assigned female at with a history of DM presenting to the emergency department today with epigastric pain. Patient's physical exam was unremarkable. Patient's blood work was unremarkable. I explained my physical exam findings as well as all test results to the patient. I answered all questions asked by the patient. Patient received Omeprazole and maalox which she stated helped her symptoms significantly. I stressed the importance of the patient taking her medication as prescribed. I stressed the importance of the patient following up with her primary care provider and a GI specialist. I stressed the importance of the patient returning to the emergency department immediately if [his/her/their] symptoms were to worsen or if she were to develop any dizziness, shortness of breath, difficulty breathing, chest pain, blurry vision, loss of vision, nausea, vomiting, abdominal pain, fever, chills, back pain, or any other complaints. Patient verbalized agreement and understanding with this treatment plan and discharge. Differential Diagnosis Differential Diagnoses: The differential diagnosis associated with the presentation includes Gastritis GERD Gastroenteritis Admission/Observation Consideration of admission/observation: Escalation of care including admission/observation considered Patient would have been admitted to the hospital had her work up had any finding s where hospital admission was appropriate and her clinical presentation warranted hospital admission. Lab Data [facility] Lab Attestation statement: I reviewed the patient's lab results. My interpretation of these studies and their corresponding values is that they are grossly normal. 03/05/23 16:32 03/05/23 16:32 Labs: Lab Results 03/05/23 03/05/23 Range/Units 16:32 16:32 WBC 9.4 (4.8-10.8) X10*3/uL RBC 5.15 (4.20-5.50) X10*6/uL Hgb 13.4 (12.0-16.0) g/dl Hct 41.3 (37.0-47.0) % MCV 80.2 (80.0-98.0) fL MCH 26.0 L (27.0-33.0) pg MCHC 32.4 (31.0-35.0) g/dl RDW 12.6 (11.0-16.0) % Plt Count 273 (160-400) X10*3/uL MPV 9.6 (9.4-12.3) fL Immature Gran % (Auto) 0.2 (0.0-0.4) % Neut % (Auto) 64.1 (45-73) % Lymph % (Auto) 24.1 (20-40) % [place] % (Auto) 6.2 (2-11) % Eos % (Auto) 5.1 H (0-4) % Baso % (Auto) 0.3 (0-2) % Lymph # (Auto) 2.3 (1.2-4.9) X10*3/uL [place] # (Auto) 0.6 (0.1-1.2) X10*3/uL Eos # (Auto) 0.5 H (0.0-0.4) X10*3/uL Baso # (Auto) 0.0 (0.0-0.2) X10*3/uL Abs Immat Gran (auto) 0.02 (0.00-0.03) X10*3/uL Absolute Neuts (auto) 6.0 (2.0-8.3) x10*3/uL Absolute Nucleated RBC 0.000 (0.0-0.012) X10*3/uL Nucleated RBC % (auto) 0.0 (0.0-0.2) /100WBC Sodium 142 (135-145) mmol/L Potassium 4.4 (3.3-5.1) mmol/L Chloride 104 (96-108) mmol/L Carbon Dioxide 31 H (22-29) mmol/L Anion Gap 11 L (12-20) BUN 16 (9-16) mg/dL Creatinine 0.84 (0.5-1.4) mg/dL Estim Creat Clear Calc 75.3 Estimated GFR > 60 Random Glucose 116 H (60-115) mg/dL Calcium 10.6 H (8.4-10.2) mg/dL Magnesium 1.7 (1.6-2.6) mg/dL Total Bilirubin 0.5 (0.0-1.0) mg/dL AST 23 (5-31) U/L ALT 23 (0-31) U/L Alkaline Phosphatase 79 (39-117) U/L Total Protein 8.3 H (6.5-8.0) g/dL Albumin 4.5 (3.5-5.0) g/dL Lipase 19 (8-78) U/L Chronic Conditions Patient?s care impacted by: Diabetes Discharge Plan Discharge Clinical Impression: Chronic epigastric pain Patient Disposition: Home, Self-Care Instructions: Epigastric Pain (ED) Additional Instructions: Follow up with your primary care provider and a GI specialist. Return to the emergency department immediately if your symptoms worsen or if you develop any dizziness, shortness of breath, difficulty breathing, chest pain, blurry vision, loss of vision, nausea, vomiting, abdominal pain, fever, chills, back pain, or any other complaints. Prescriptions: No Action albuterol sulfate 90 mcg/actuation HFA aerosol inhaler 2 puff PO Q4-6H PRN (Reason: Wheezing) zolpidem 10 mg tablet 1 tab PO BEDTIME benztropine 2 mg tablet 1 tab PO BID duloxetine 60 mg capsule,delayed release(DR/EC) 1 cap PO BID Lantus Solostar U-100 Insulin 100 unit/mL (3 mL) insulin pen 34 unit subcut Q12H famotidine 40 mg tablet 1 tab PO BEDTIME Flovent HFA 110 mcg/actuation HFA aerosol inhaler 2 puff PO BID cyclobenzaprine 10 mg tablet 1 tab PO TID gabapentin 800 mg tablet 1 tab PO TID lisinopril 20 mg tablet 1 tab PO DAILY metformin 500 mg tablet extended release 24 hr 2 tab PO BID insulin aspart U-100 [Novolog FlexPen U-100 Insulin] 100 unit/mL (3 mL) insulin pen 7 unit subcut TID trazodone 50 mg tablet 1 tab PO BEDTIME Vraylar 6 mg capsule 1 cap PO DAILY atorvastatin 80 mg tablet 1 tab PO DAILY ropinirole 0.25 mg tablet 1 tab PO DAILY (DME) blood-glucose meter Kit See Rx Instructions .ROUTE .MEDSUPPLY Qty: 1 Rx Instructions: As directed aspirin 81 mg tablet,delayed release (DR/EC) 81 mg PO DAILY (DME) FreeStyle Lite Strips Strip See Rx Instructions .ROUTE .MEDSUPPLY Qty: 10 Rx Instructions: As directed (DME) lancets 28 gauge misc See Rx Instructions topical TID Qty: 100 Rx Instructions: As directed (DME) pen needle, diabetic 31 gauge x 3/16 needle See Rx Instructions .ROUTE .MEDSUPPLY Qty: 50 Rx Instructions: As directed clonidine HCl 0.1 mg tablet 0.1 mg PO BID-TID PRN Jardiance 10 mg tablet 10 mg PO QAM Trulicity 3 mg/0.5 mL pen injector subcut QWEEK Certavite-Antioxidant 18-400 mg-mcg tablet 0 tab PO mirtazapine 7.5 mg tablet 7.5 mg PO BEDTIME Referrals: [facility] [Provider Group] (Call to establish and follow up with a GI specialist.) Brenda Tovar MD [Primary Care Provider] - Print Language: [place]
[2023-03-05 16:35] LABS: MANUAL DIFF FLAG NO
[2023-03-05 16:40] LABS: Basophils Percent Auto 0.3 % (0-2); Eosinophils Absolute Auto 0.5 X10*3/uL (0.0-0.4); Eosinophils Percent Auto 5.1 % (0-4); Hematocrit 41.3 % (37.0-47.0); Hemoglobin 13.4 g/dl (12.0-16.0); Imm Gran Abs Auto 0.02 X10*3/uL (0.00-0.03); Imm Gran Pct Auto 0.2 % (0.0-0.4); Lymphocytes Absolute Auto 2.3 X10*3/uL (1.2-4.9); Lymphocytes Percent Auto 24.1 % (20-40); Mean Corpuscular HGB Conc 32.4 g/dl (31.0-35.0); Mean Corpuscular Volume 80.2 fL (80.0-98.0); Mean Platelet Volume 9.6 fL (9.4-12.3); Monocytes Absolute Auto 0.6 X10*3/uL (0.1-1.2); Monocytes Percent Auto 6.2 % (2-11); Neutrophils Percent Auto 64.1 % (45-73); Platelet Count 273 X10*3/uL (160-400); Red Blood Count 5.15 X10*6/uL (4.20-5.50); Red Cell Distribution Width 12.6 % (11.0-16.0); White Blood Count 9.4 X10*3/uL (4.8-10.8)
[2023-03-05 16:58] LABS: Alanine Aminotransferase 23 U/L (0-31); Albumin Level 4.5 g/dL (3.5-5.0); Alkaline Phosphatase 79 U/L (39-117); Anion Gap 11 (12-20); Aspartate Amino Transferase 23 U/L (5-31); Bilirubin Total 0.5 mg/dL (0.0-1.0); Blood Urea Nitrogen 16 mg/dL (9-16); Calcium 10.6 mg/dL (8.4-10.2); Carbon Dioxide 31 mmol/L (22-29); Chloride 104 mmol/L (96-108); Creatinine Clr Calc Pharmacy 75.3; Estimated Glomerular Filt Rate > 60; Glucose Random 116 mg/dL (60-115); Lipase 19 U/L (8-78); Magnesium 1.7 mg/dL (1.6-2.6); Potassium 4.4 mmol/L (3.3-5.1); Sodium 142 mmol/L (135-145); Total Protein 8.3 g/dL (6.5-8.0)
--- NOTE | 2023-03-05 19:43 | MHC.EDTECH ---
PATIENT SAID SHE KEDAR GIVE URINE SAMPLE AT THIS TIME .
[2023-03-05 20:45] VITALS: BP 138/82; PULSE 95; RESP 20; TEMP 36.6; O2SAT 95
[2023-03-05] MEDS: diphenhydrAMINE HCL 25 MG CAPSULE PO (22:00)
[2023-03-05] MEDS: Magnesium Hydrox/Alum Hydrox 30 ML ORAL.SUSP 15 ML PO (22:01)
[2023-03-05] MEDS: Omeprazole 40 MG CAPSULE.DR PO (22:01)
--- NOTE | 2023-03-05 23:11 | PC.NURSE ---
pt calm and cooperative. pt refused final set of vital signs. pt ambulatory at discharge. pt provided with discharge plan. pt verbalized understanding of discharge plan
== END 2023-03-05 23:12 | disposition home or self-care (01) ==
PROVIDERS: Physician Assistant; Emergency Provider Emergency Medicine; PCP Internal Medicine
DX: G89.29 Other chronic pain (principal); R10.13 Epigastric pain; E11.9 Type 2 diabetes mellitus without complications; I10 Essential (primary) hypertension; E78.5 Hyperlipidemia, unspecified; Z79.4 Long term (current) use of insulin; Z79.82 Long term (current) use of aspirin; Z79.899 Other long term (current) drug therapy
CPT/HCPCS: 36415; 80053; 83690; 83735; 85025; 99283; 99284

== ENCOUNTER 2023-03-10 08:03 | Outpatient (REF) | payer OTHER, SELFPAY ==
--- NOTE | ~2023-03-10 | US_ITS ---
EXAMINATION: US ABDOMEN COMPLETE CLINICAL INFORMATION: Upper abdominal pain. COMPARISON: Renal ultrasound 11/20/2019. CT abdomen and pelvis 03/14/2019. TECHNIQUE: Real-time imaging of the abdominal viscera. Limited visualization due to bowel gas and body habitus. FINDINGS: PANCREAS: Limited visualization due to bowel gas and body habitus. ABDOMINAL AORTA: Limited visualization. INFERIOR VENA CAVA: Visualized portions are normal. LIVER: Hepatomegaly, 17.7 cm. Diffuse increase in echogenicity of the liver is characteristic of primary hepatocellular disease, possibly due to hepatic steatosis and further limits visualization. GALLBLADDER: Surgically absent. COMMON BILE DUCT: Normal in caliber measuring 0.3 cm in diameter. RIGHT KIDNEY: No hydronephrosis. No renal calculi. Limited visualization. The kidney measures 11.4 cm in maximum dimension. LEFT KIDNEY: No hydronephrosis. No renal calculi. Limited visualization. The kidney measures 10.1 cm in maximum dimension. SPLEEN: Normal. The spleen measures 10.1 cm in maximum dimension. FREE FLUID: None. US/US abdomen complete IMPRESSION: Hepatomegaly, 17.7 cm. Diffuse increase in echogenicity of the liver is characteristic of primary hepatocellular disease, possibly due to hepatic steatosis and severely limits visualization. Gallbladder surgically absent. Limited visualization due to bowel gas and body habitus. CT scan should be considered for better visualization.
== END 2023-03-10 08:04 | disposition home or self-care (01) ==
LOC: HO.US 08:03
PROVIDERS: PCP Internal Medicine; Visit Provider Internal Medicine
DX: R10.10 Upper abdominal pain, unspecified (principal)
CPT/HCPCS: 76700

== ENCOUNTER 2023-04-23 12:48 | Outpatient (AMB) | payer OTHER, SELFPAY ==
--- NOTE | 2023-04-23 13:28 | A.OFFVIS_ITS ---
Intake Vital Signs 04/23/23 13:36 Height 5 ft 5 in Weight 155 lb BMI 25.8 Intake Visit Reasons: Newpro-B/L arm/shoulder pain Intake Note: Jeny a 52 year old right hand dominant female who presents today with complaints of bilateral shoulder pain. Patient reports pain has been present for a few years that has been recently getting worse. Limited ROM. States unable to make a closed fist due to pain. Numbness in her 3rd, 4th, and 5th digit. Patient left shoulder is the worse. Approximately 6 years ago while in [place] she was given a cortisone injection with no relief as well as physical therapy. Finds no relief with Tylenol or gabapentin. Hx of bilateral cubital and CTR. States being recently dx with tardive dyskinesia. A1C last month was 6.5 Allergies Penicillins [PENICILLINS] Allergy (Intermediate, Verified 04/23/23 13:34) HIVES ibuprofen Allergy (Unknown, Verified 04/23/23 13:34) unknown penicillin V Allergy (Unknown, Verified 04/23/23 13:34) Unknown NSAIDS (Non-Steroidal Anti-Inflamma [NSAIDS (NON-STEROIDAL ANTI-INFLAMMA] Adverse Reaction (Mild, Verified 04/23/23 13:34) STOMACH UPSET HPI Newpro-B/L arm/shoulder pain HPI Details 52-year-old right hand dominant female kevyn real presents to the office today for evaluation of bilateral arm and shoulder pain. She states she has worsening bilateral shoulder pain and limited ROM which is worse on her left shoulder. She is unable to make a closed fist due to the pain. She also c/o numbness in her 3rd, 4th and 5th digits. She had a cortisone injection in [place] about 6 years ago and undergone physical therapy which did not provide her any relief. She finds no relief with Tylenol or gabapentin. She has a history of bilateral cubital tunnel syndrome and CTS. She has recently been diagnosed with tardive dyskinesia. She also has a history of diabetes. Her HbA1c was 6.5 last month. [facility] Medical History (Updated 03/06/23 @ 00:01 by Marino Cortes) T2DM (type 2 diabetes mellitus) Arthritis of knee Restless leg syndrome Sleep apnea Gastritis High cholesterol Hypertension Fibromyalgia Arthritis Migraines Diabetes Asthma Surgical History (Updated 04/23/23 @ 13:35 by CHRISTIN Gilbert) Hx of fusion of cervical spine Hx of breast biopsy Hx of arthroscopic knee surgery Hx of cholecystectomy History of esophagogastroduodenoscopy (EGD) History of carpal tunnel release Hx of hysterectomy Family History Father No problems noted. Mother HTN (hypertension) Arthritis Diabetes Social History Alcohol intake: never Patient Tobacco Use Status: Current everyday Tobacco user Substance Use Type: Crack/Cocaine Current occupational status: unemployed Current occupation: right handed Review of Systems Const All systems reviewed & are unremarkable except as noted in HPI and below Physical Exam Vital Signs: BMI result Body Mass Index 25.8 Const General: cooperative and no acute distress Orientation/consciousness: patient oriented x3 Resp Effort & Inspection: normal respiratory effort and able to speak in complete sentences Cardio Peripheral pulses: Peripheral pulses 2+ throughout Neuro General: patient oriented x3 Extrem Other: Right shoulder normal to inspection. Tenderness over the bicipital groove and along deltoid region of the shoulder. Hypersensitivity to the trapezium. FF to 175, ER to 90, IR to S1. 5/5 RTC strength, positive bello, positive cross body abduction. NVI. Patient does display repetitive muscle movements throughout her face, arms and legs that are uncontrollable. Assessment & Plan Assessment & Plan (1) Weakness of both hands: Code(s): R29.898 - Other symptoms and signs involving the musculoskeletal system (2) Fibromyalgia: Code(s): M79.7 - Fibromyalgia Plan We did have a lengthy discussion about her overall multiple joint pain, weakness and numbness. She also has a history fibromyalgia. She states she was seen by pain management before and they were uncertain that the injections would help her. She claims the ac joint injection I provided to her did not give her any relief. She was also seen by our hand specialist who did not recommend any type of surgical intervention as her EMG studies were negative. She did inform me that her PCP referred her to neurologist at [facility] but she does not have an appointment until June. She states her PCP was trying to rule out tardive dyskinesia. The patient asks if I could get her a referral to the neurology group here at the hospital. I did put in a referral for this and encouraged her to follow-up with her PCP if her symptoms become worse or if there is any concerns. She is content with this plan. Orders: Referrals Neurology Referral M79.7 - Fibromyalgia, R29.898 - Other symptoms and signs involving the musculoskeletal system Patient Instructions: Scribed for Connor Angulo PA-C, by Hardik [facility], medical office assistant instructor, on 04/23/2023 at 1:45 PM EST. Efrain, Connor Angulo PA-C, have personally reviewed and agree with the information entered by the scribe. Coding Level of Care Code Est Pt Level 3 (74347) Diagnoses Weakness of both hands R29.898 Fibromyalgia M79.7
[2023-04-23 13:36] VITALS: BMI 25.8
== END 2023-04-23 14:16 | disposition home or self-care (01) ==
PROVIDERS: PCP Internal Medicine; Visit Provider Physician Assistant
DX: R29.898 Other symptoms and signs involving the musculoskeletal system (principal); M79.7 Fibromyalgia
CPT/HCPCS: 99213

== ENCOUNTER → 2023-04-23 12:48 | Outpatient (BNVA) | payer OTHER, SELFPAY | PROVIDERS: PCP Internal Medicine; Visit Provider Physician Assistant | DX: R29.898 Other symptoms and signs involving the musculoskeletal system (principal); M79.7 Fibromyalgia | CPT/HCPCS: 99212 ==

== ENCOUNTER 2023-06-03 10:40 | Outpatient (AMB) | payer OTHER, SELFPAY ==
[2023-06-03 10:43] VITALS: BP 136/68; PULSE 97; BMI 27.0
--- NOTE | 2023-06-03 10:43 | MHC.OFFVIS ---
Intake Vital Signs 06/03/23 10:43 Height 5 ft 5 in Weight 162 lb BMI 27.0 BP 136/68 Blood Pressure Location Rt brachial Position Sitting Pulse 97 Intake Visit Reasons: Painful lipoma, left mid back Intake Note: This patient presents for an assessment for painful lipoma, left abdomen. Patient c/o; reports pain, left lower abdomen, ?lipoma. Administrative Specialist Required: No Accompanied by: Self / Same As Patient Allergies Penicillins [PENICILLINS] Allergy (Intermediate, Verified 06/03/23 10:50) HIVES ibuprofen Allergy (Unknown, Verified 06/03/23 10:50) unknown penicillin V Allergy (Unknown, Verified 06/03/23 10:50) Unknown NSAIDS (Non-Steroidal Anti-Inflamma [NSAIDS (NON-STEROIDAL ANTI-INFLAMMA] Adverse Reaction (Mild, Verified 06/03/23 10:50) STOMACH UPSET Medication List - Last Reconciled 06/03/23 by Chirag Aiken MD albuterol sulfate 90 mcg/actuation 2 puffs PO Q4-6H PRN aspirin 81 mg PO DAILY atorvastatin 1 tab PO DAILY benztropine 1 tab PO BID blood sugar diagnostic (FreeStyle Lite Strips) As directed blood-glucose meter As directed cariprazine (Vraylar) 1 cap PO DAILY clonidine HCl 0.1 mg PO BID-TID PRN cyclobenzaprine 1 tab PO TID dulaglutide (Trulicity) mg subcut QWEEK duloxetine 1 cap PO BID empagliflozin (Jardiance) 10 mg PO QAM famotidine 1 tab PO BEDTIME fluticasone propionate 110 mcg/actuation (Flovent HFA) 2 puffs PO BID gabapentin 1 tab PO TID insulin aspart U-100 (Novolog FlexPen U-100 Insulin aspart) 7 units subcut TID insulin glargine (Lantus Solostar U-100 Insulin) 34 units subcut Q12H lancets As directed lisinopril 1 tab PO DAILY metformin ER 2 tabs PO BID mirtazapine 7.5 mg PO BEDTIME ymfkshnqubmx-dwto-axkkz acid 18-400 mg-mcg (Certavite-Antioxidant) 0 tabs PO pen needle, diabetic As directed ropinirole 1 tab PO DAILY trazodone 1 tab PO BEDTIME zolpidem 1 tab PO BEDTIME HPI Painful lipoma, left mid back HPI Details 52-year-old female referred for a lipoma of the abdominal wall. She says that she occasionally feels a small lump on the abdominal wall on the left side. She says that this is tender once in a while. She did not not notice any skin changes. She has chronic pain from fibromyalgia. [facility] Medical History Lipoma of abdominal wall T2DM (type 2 diabetes mellitus) Arthritis of knee Restless leg syndrome Sleep apnea Gastritis High cholesterol Hypertension Fibromyalgia Arthritis Migraines Diabetes Asthma Surgical History Hx of fusion of cervical spine Hx of breast biopsy Hx of arthroscopic knee surgery Hx of cholecystectomy History of esophagogastroduodenoscopy (EGD) History of carpal tunnel release Hx of hysterectomy Family History Father No problems noted. Mother HTN (hypertension) Arthritis Diabetes Maternal Aunt Cancer of unknown origin Social History Alcohol intake: never Patient Tobacco Use Status: Current everyday Tobacco user Substance Use Type: Crack/Cocaine Current occupational status: unemployed Current occupation: right handed Review of Systems Const Denies chills and Denies fever(s) Card Denies chest pain, Denies dyspnea and Denies dyspnea on exertion Resp Denies cough, Denies dyspnea and Denies dyspnea on exertion GI Denies hematochezia and Denies change in bowel habits Denies hematuria Musc Details: Muscle pains Reports back pain, Reports myalgias, Reports arthralgias and Denies limited range of motion Neuro Denies focal weakness and Denies convulsions Psych Denies depression and Denies mood swings Physical Exam Vital Signs: Last Vital Signs Pulse 97 06/03/23 10:43 BP 136/68 06/03/23 10:43 BMI result Body Mass Index 27.0 Const General: comfortable and no acute distress Orientation/consciousness: patient oriented x3 Neck Neck: Yes no lymphadenopathy Resp Auscultation: clear to auscultation bilaterally Cardio Rhythm: regular rhythm GI Other: small, barely palpable mass in the subcutaneous layer of the abdominal wall on the left, less than 5 mm in size, no skin changes Palpation (GI): Soft to palpation, nontender and no guarding Neuro General: patient oriented x3 Assessment & Plan Assessment & Plan (1) Lipoma of abdominal wall: Code(s): D17.1 - Benign lipomatous neoplasm of skin and subcutaneous tissue of trunk Plan: she has a very small lipoma on the left side of the abdominal wall. This is barely palpable and is probably less than 5 mm in size. I told her that it might be better for as to monitor this for now because of the small size. I did review with her the technique of excision. I reviewed the risks including but not limited to bleeding, infections, poor healing, as well as the benefits and alternatives. She says she will come back to the office when she feels she will go ahead with the excision. She is comfortable with the plan as above. Coding Level of Care Code New Pt Level 3 (89874) Diagnoses Lipoma of abdominal wall D17.1
== END 2023-06-03 11:02 | disposition home or self-care (01) ==
PROVIDERS: PCP Internal Medicine; Referring Provider Internal Medicine; Visit Provider Surgery
DX: D17.1 Benign lipomatous neoplasm of skin and subcutaneous tissue of trunk (principal)
CPT/HCPCS: 99203

== ENCOUNTER → 2023-06-03 10:40 | Outpatient (BNVA) | payer OTHER, SELFPAY | PROVIDERS: PCP Internal Medicine; Referring Provider Internal Medicine; Visit Provider Surgery | DX: D17.1 Benign lipomatous neoplasm of skin and subcutaneous tissue of trunk (principal) | CPT/HCPCS: 99202 ==

== ENCOUNTER 2023-06-03 13:51 | Outpatient (REF) | payer OTHER, SELFPAY ==
--- NOTE | ~2023-06-03 | XR_ITS ---
EXAMINATION: CERVICAL SPINE 3 VIEWS CLINICAL INFORMATION: Chronic left neck and shoulder pain. COMPARISON: Radiographs dated 05/30/2021. TECHNIQUE: Frontal, lateral and odontoid views are obtained. FINDINGS: Vertebral body heights and alignment are normal. There is well-maintained alignment status-post C5-C7 anterior fusions and discectomies. No hardware failure or loosening is seen. The remaining disc spaces are well-maintained. No acute fracture or spondylolisthesis is seen. There is marked anterior spondylosis at C3-C4, and mild anterior spondylosis is seen at C4-C5. The posterior elements are intact. There is multi-level cervical facet arthropathy. There is right neural foraminal narrowing at C5-C6. There is no prevertebral soft tissue swelling. The dens and C7-T1 interface are normal. XR/XR shoulder LT min 2V IMPRESSION: 1. There is well-maintained alignment status-post C5-C7 anterior fusions and discectomies. No hardware failure or loosening is seen. 2. There is anterior spondylosis at C3-C4 and C4-C5. 4. There is multi-level marked cervical facet arthropathy. 3. There is right neural foraminal narrowing at C5-C6. EXAMINATION: XR SHOULDER, LEFT CLINICAL INFORMATION: As above. COMPARISON: None available. TECHNIQUE: AP external rotation, Grashey, scapular Y, and axillary views of the left shoulder. FINDINGS: Bony alignment and mineralization are normal. The glenohumeral joint is intact and shows mild osteoarthritic change. The acromioclavicular and coracoclavicular intervals are normal. There is moderately severe osteoarthritic change of the acromioclavicular joint. No fracture or dislocation is seen. There is mild cortical irregularity of the greater tuberosity of the proximal left humerus. There is no abnormal soft tissue calcifications or foreign body. No left pneumothorax is seen. IMPRESSION: 1. There is mild osteoarthritic change of the left glenohumeral joint, and moderately severe osteoarthritic change is seen of the left acromioclavicular joint. 2. No fracture or dislocation is seen. 3. There is mild cortical irregularity of the greater tuberosity of the proximal left humerus, which can be associated with rotator cuff impingement. No rebel calcific tendinitis is noted.
--- NOTE | ~2023-06-03 | XR_ITS ---
EXAMINATION: CERVICAL SPINE 3 VIEWS CLINICAL INFORMATION: Chronic left neck and shoulder pain. COMPARISON: Radiographs dated 05/30/2021. TECHNIQUE: Frontal, lateral and odontoid views are obtained. FINDINGS: Vertebral body heights and alignment are normal. There is well-maintained alignment status-post C5-C7 anterior fusions and discectomies. No hardware failure or loosening is seen. The remaining disc spaces are well-maintained. No acute fracture or spondylolisthesis is seen. There is marked anterior spondylosis at C3-C4, and mild anterior spondylosis is seen at C4-C5. The posterior elements are intact. There is multi-level cervical facet arthropathy. There is right neural foraminal narrowing at C5-C6. There is no prevertebral soft tissue swelling. The dens and C7-T1 interface are normal. XR/XR cervical spine 5V IMPRESSION: 1. There is well-maintained alignment status-post C5-C7 anterior fusions and discectomies. No hardware failure or loosening is seen. 2. There is anterior spondylosis at C3-C4 and C4-C5. 4. There is multi-level marked cervical facet arthropathy. 3. There is right neural foraminal narrowing at C5-C6. EXAMINATION: XR SHOULDER, LEFT CLINICAL INFORMATION: As above. COMPARISON: None available. TECHNIQUE: AP external rotation, Grashey, scapular Y, and axillary views of the left shoulder. FINDINGS: Bony alignment and mineralization are normal. The glenohumeral joint is intact and shows mild osteoarthritic change. The acromioclavicular and coracoclavicular intervals are normal. There is moderately severe osteoarthritic change of the acromioclavicular joint. No fracture or dislocation is seen. There is mild cortical irregularity of the greater tuberosity of the proximal left humerus. There is no abnormal soft tissue calcifications or foreign body. No left pneumothorax is seen. IMPRESSION: 1. There is mild osteoarthritic change of the left glenohumeral joint, and moderately severe osteoarthritic change is seen of the left acromioclavicular joint. 2. No fracture or dislocation is seen. 3. There is mild cortical irregularity of the greater tuberosity of the proximal left humerus, which can be associated with rotator cuff impingement. No rebel calcific tendinitis is noted.
== END 2023-06-03 13:52 | disposition home or self-care (01) ==
LOC: HO.HHCX 13:51
PROVIDERS: Visit Provider Internal Medicine
DX: M25.512 Pain in left shoulder (principal); M54.2 Cervicalgia; G89.29 Other chronic pain
CPT/HCPCS: 72050; 73030

== ENCOUNTER 2023-07-06 14:23 | Outpatient (AMB) | payer OTHER, SELFPAY ==
--- NOTE | 2023-07-06 14:39 | A.OFFVIS_ITS ---
Intake Vital Signs 3 07/06/23 14:49 Height 5 ft 5 in Weight 169 lb BMI 28.1 BP 142/70 H Blood Pressure Location Lt brachial Position Sitting Respiration 18 Pulse 107 H Pulse Source Pulse Oximeter Pulse Oximetry (%) 96 Oxygen Delivery Method Room Air Intake Visit Reasons: group home back & shoulder pain Allergies Penicillins [PENICILLINS] Allergy (Intermediate, Verified 07/06/23 14:35) HIVES ibuprofen Allergy (Unknown, Verified 07/06/23 14:35) unknown penicillin V Allergy (Unknown, Verified 07/06/23 14:35) Unknown NSAIDS (Non-Steroidal Anti-Inflamma [NSAIDS (NON-STEROIDAL ANTI-INFLAMMA] Adverse Reaction (Mild, Verified 07/06/23 14:35) STOMACH UPSET HPI HPI Comments 2 History of Present Illness0 Details Jeny is a very pleasant 48-year-old female who presents the office today, accompanied by her significant other, for evaluation management of her chronic left shoulder pain. Patient reports that she has been suffering with this pain for many years. She is currently on gabapentin and methocarbamol without relief of her pain. She recently saw orthopedics and did not receive any treatment, was referred to Neurology. Patient's primary care doctor referred her to and [facility], she is waiting for an appointment in their office. She has tried physical therapy in the past, reports that it did not work. She has had injection of steroids in the past that also did not provide any benefit. She reports that home exercises are too painful. She endorses pain with any use of the left arm. She states she has numbness and tingling to the left hand, she did have nerve conduction study May of 2022, results as per below. Patient has a documented history of fibromyalgia, she is currently awaiting appointment with a neurologist at [facility]. Patient reports 10/10 left shoulder pain, worse with any movement. She also endorses mid and lower back pain and pain in both of her legs. In terms of muscle damage condition is described as sharp, shooting, stabbing, aching, burning and tingling. Pain is negatively impacting patient's normal sleep, ability to perform activities of daily living, ability to care for self and function normally. [facility] Medical History Lipoma of abdominal wall T2DM (type 2 diabetes mellitus) Arthritis of knee Restless leg syndrome Sleep apnea Gastritis High cholesterol Hypertension Fibromyalgia Arthritis Migraines Diabetes Asthma Surgical History Hx of fusion of cervical spine Hx of breast biopsy Hx of arthroscopic knee surgery Hx of cholecystectomy History of esophagogastroduodenoscopy (EGD) History of carpal tunnel release Hx of hysterectomy Family History Father No problems noted. Mother HTN (hypertension) Arthritis Diabetes Maternal Aunt Cancer of unknown origin Social History Alcohol intake: never Patient Tobacco Use Status: Current everyday Tobacco user Substance Use Type: Crack/Cocaine Current occupational status: unemployed Current occupation: right handed Review of Systems Const All systems reviewed & are unremarkable except as noted in HPI and below Physical Exam Vital Signs: Last Vital Signs Pulse 107 H 07/06/23 14:49 Resp 18 07/06/23 14:49 BP 142/70 H 07/06/23 14:49 Pulse Ox 96 07/06/23 14:49 Oxygen Delivery Method Room Air 07/06/23 14:49 BMI result Body Mass Index 28.1 General: awake, alert, oriented. Answers questions appropriately. Fully engaged in examination. Skin: warm, dry, intact HEENT: Normocephalic. Hearing intact. Cardiac: External chest normal in appearance. Respiratory: No cough, audible wheezing or stridor. Abdomen: without gross distension. MS: No obvious swelling or deformities. Able to transition from sit to stand unassisted. Ambulates with bilaterally normal heel strike and toe off Left shoulder: Limited range of motion in all planes. Increased pain response with any movement of the left shoulder. Allodynia. Neurological: Oriented to person, place, time and situation. Thought process intact. No gait abnormalities appreciated. Psychiatric: Appropriate mood and affect. Good judgment and insight. Results Reviewed Results Reviewed: 06/03/23 XR/XR shoulder LT min 2V FINDINGS: Vertebral body heights and alignment are normal. There is well-maintained alignment status-post C5-C7 anterior fusions and discectomies. No hardware failure or loosening is seen. The remaining disc spaces are well-maintained. No acute fracture or spondylolisthesis is seen. There is marked anterior spondylosis at C3-C4, and mild anterior spondylosis is seen at C4-C5. The posterior elements are intact. There is multi-level cervical facet arthropathy. There is right neural foraminal narrowing at C5-C6. There is no prevertebral soft tissue swelling. The dens and C7-T1 interface are normal. IMPRESSION: 1. There is well-maintained alignment status-post C5-C7 anterior fusions and discectomies. No hardware failure or loosening is seen. 2. There is anterior spondylosis at C3-C4 and C4-C5. 4. There is multi-level marked cervical facet arthropathy. 3. There is right neural foraminal narrowing at C5-C6. 05/2022 Assessment & Plan Assessment & Plan (1) Lumbar spondylosis: Code(s): M47.816 - Spondylosis without myelopathy or radiculopathy, lumbar region (2) Myofascial low back pain: Code(s): M54.50 - Low back pain, unspecified (3) Fibromyalgia: Code(s): M79.7 - Fibromyalgia (4) Left shoulder pain: Code(s): M25.512 - Pain in left shoulder Plan Jeny is a very pleasant 52-year-old female who presented to the office today for evaluation management of her chronic left shoulder, middle back, lower back and bilateral leg pain. Patient main focus today was left shoulder pain as this is her most debilitating currently. Patient has exhausted conservative treatment including physical therapy, home exercise program, or medications, muscle relaxers. Discussed options for treatment including diagnostic interventional testing, steroid injections, peripheral nerve stimulation with Sprint, RFA and more permanent neuromodulation. Informational pamphlets provided. Will schedule for left diagnostic ultrasound-guided suprascapular nerve block with local anesthetic. If patient reports relief in the hours after the diagnostic injection will plan for left suprascapular Sprint peripheral nerve stimulator placement. X-ray lumbar spine ordered for evaluation as she does not have any recent imaging of her lower back. Patient advised that after treatment of her shoulder pain we can then focus on next most troublesome area. Follow-up with [facility] as planned, follow-up with neurology as planned. Patient aware that if [facility] offers her surgical intervention to call our office to postpone the diagnostic injection. Continue with gabapentin and methocarbamol as prescribed. All questions and concerns have been answered and patient agrees with the plan. Follow up after injections and sooner if needed. Orders: Orders 2 XR lumbar spine 4V min Today M47.816 - Spondylosis without myelopathy or radiculopathy, lumbar region Coding Level of Care Code New Pt Level 4 (75622) Diagnoses Lumbar spondylosis M47.816 Myofascial low back pain M54.50 Fibromyalgia M79.7 Left shoulder pain M25.512
[2023-07-06 14:49] VITALS: BP 142/70; PULSE 107; RESP 18; O2SAT 96; BMI 28.1
== END 2023-07-06 15:29 | disposition home or self-care (01) ==
PROVIDERS: PCP Internal Medicine; Referring Provider Internal Medicine; Visit Provider Registered Nurse Emergency
DX: M47.816 Spondylosis without myelopathy or radiculopathy, lumbar region (principal); M54.50 Low back pain, unspecified; M79.7 Fibromyalgia; M25.512 Pain in left shoulder
CPT/HCPCS: 99204

== ENCOUNTER → 2023-07-06 14:23 | Outpatient (BNVA) | payer OTHER, SELFPAY | PROVIDERS: PCP Internal Medicine; Referring Provider Internal Medicine; Visit Provider Registered Nurse Emergency | DX: M47.816 Spondylosis without myelopathy or radiculopathy, lumbar region (principal); M54.50 Low back pain, unspecified; M79.7 Fibromyalgia; M25.512 Pain in left shoulder | CPT/HCPCS: 99202 ==

== ENCOUNTER 2023-08-03 06:14 | Outpatient (REF) | payer OTHER, SELFPAY ==
--- NOTE | ~2023-08-03 | FL_ITS ---
EXAMINATION: XR FLUOROSCOPY WITH IMAGES CLINICAL INFORMATION: Pain in left shoulder. COMPARISON: None available. TECHNIQUE: Fluoroscopy Supervised By: Dr. Dennis Carlson. Fluoroscopy Time: 0.1 minutes. Cumulative Dose: 1.41 mGy. DAP: 0.0208 mGym2 Images: 1. FINDINGS: Technical assistance and equipment were provided by the Department of Radiology during intraoperative fluoroscopy. A total of 1 limited fluoroscopic spot images are submitted for archival purposes. A radiologist was not present during the procedure. The images are available for review on PACS. FL/FL guidance in treatment room IMPRESSION: Technical assistance and equipment provided by the Department of Radiology during procedural fluoroscopy, as above. Please see procedure report for further details.
== END 2023-08-03 06:15 | disposition home or self-care (01) ==
LOC: CF 06:14
PROVIDERS: Visit Provider Anesthesiology
DX: M25.512 Pain in left shoulder (principal); M47.816 Spondylosis without myelopathy or radiculopathy, lumbar region; M54.50 Low back pain, unspecified; M79.7 Fibromyalgia
CPT/HCPCS: 64418; J2795; J3301; Q9967

== ENCOUNTER 2023-08-03 12:49 | Outpatient (AMB) | payer OTHER, SELFPAY ==
--- OUTSIDE RECORDS SUMMARY | 2023-08-03 12:50 | XMS_ITS | Continuity of Care Document ---
Author Name Unknown Organization [facility] and Diabetes Address [address] [place] [address]- Care Team Providers Care Corporate Associate Attorney Name Role Phone Sae Ojeda MD, Brenda Alejo Primary Care Physici an [place] [facility] [place]/23 - 04/30/23 [facility] Diabetes [address] [place] [address] Attending Physician: Malcom Mendoza Admitting Physician: AdmtrMalcom Referring Physician: Admtr, Malcom Allergies, Adverse Reactions, Alerts Substance Reaction Severity [...] transmitter every 90 days. Rotate sites. E11.65., 11/03/22 13:46:00 EDT, Compound, 168, cm, 10/16/22 [...] units, # 20 mL, 5 Refills, Maintenance, 03/31/23 16:25:00 EDT, [facility]/pharmacy #[id number], Partial fill upon patient request if the prescription is for a schedule II opioid drug., 168, cm, 0... Start Date: 03/31/23 Status: Ordered fluticasone 50 mcg/inh nasal spray 1 sprays, Nares, Both, 2 times a day, # 16 Gm, 0 Refills, Maintenance, 07/04/14 9:23:44, [place], 1 sprays Nares, Both 2 times a [...] 6 Refills, Maintenance, 11/06/22 12:30:00 EDT, Solution, [facility]/pharmacy #[id number], 168, cm, 10/16/22 9:27:00 EDT, [...] a day, # 360 tablet, 3 Refills, 03/31/23 16:25:00 EDT, [facility]/pharmacy #[id number], 168, cm, 03/31/23 15:44:00 EDT, Height Start Date: 03/31/23 Status: Ordered Nicorette 2 mg oral transmucosal [...] Height Start Date: 12/02/22 Status: Ordered Pen [place], 31 G x 8 mm BD Ultra [...] week, # 4 each, 5 Refills, Maintenance, 03/31/23 16:24:00 EDT,[facility]/pharmacy #[id number], Partial fill upon patient request if the prescription is for a schedule II opioid drug., 168, cm, 03/31/23 15:44:00 EDT, Height Start Date: 03/31/23 Stop Date: 09/27/23 Status: Ordered Problem List Condition Confirmation Course Effective Dates Status H ealth Status Informant Asthma 1 Confirmed Active Fibromyalgia syndrome Confirmed Active Hyperlipidemia NOS Confirmed Active Type 2 diabetes, HbA1C goal < 7% Confirmed Active 1no PFTs on record Social History Social History Type Response Smoking Status Current every day sm yovana entered on: 04/02/14 Sex Laboratory * Event Display: Non Lab Results Authored Date: Patient Care team information Care Team Personnel Name: Brenda Tovar MD Position: [facility] Outreach Member Role: PCP Address: Address: [address] [place] [address] [address] [place] [address]- Care Team Related Persons Name: CINTHYABERNARDA Address: [address] [place] [address] Name: VAZQUEZ COSTA
--- OUTSIDE RECORDS SUMMARY | 2023-08-03 12:51 | XMS_ITS | Continuity of Care Document ---
Author Name Unknown Organization [facility] Address [address] [facility], [address] Floor, [address] [place] [address]- Care Team Providers Care Building Manager Name Role Phone Sae Ojeda MD, Brenda Alejo Primary Care Physici an [place] [facility] [place] Date(s): 03/02/23 - 04/01/23 [facility] [address], [address] Floor, [address] [place] [id number]- Allergies, Adverse Reactions, Alerts Substance Reaction Severity [...] mL, 5 Refills, Maintenance, 03/31/23 16:25:00 EDT, [facility]/pharmacy #[id number], Partial fill upon patient request if the prescription is for a schedule II opioid drug., 168, cm, 0... Start Date: 03/31/23 Status: Ordered fluticasone 50 mcg/inh nasal spray 1 sprays, Nares, Both, 2 times a day, # 16 Gm, 0 Refills, Maintenance, 07/04/14 9:23:44, [place], 1 sprays Nares, Both 2 times a [...] 6 Refills, Maintenance, 11/06/22 12:30:00 EDT, Solution, [id number], 168, cm, 10/16/22 9:27:00 EDT, Height [...] 360 tablet, 3 Refills, 03/31/23 16:25:00 EDT, [id number], 168, cm, 03/31/23 15:44:00 EDT, Height [...] Height Start Date: 12/02/22 Status: Ordered Pen [place], 31 G x 8 mm BD Ultra [...] 4 each, 5 Refills, Maintenance, 03/31/23 16:24:00 EDT,[facility]/pharmacy #[id number], Partial fill upon patient request if [...] Team Personnel Name: Brenda Tovar MD Position: [facility] Outreach Member Role: PCP Address: Address: [address] [place] [address] [address] [place] [address]- Care Team Related Persons Name: TIMMY MENDES Address: home [address] [place] [address] Name: VAZQUEZ COSTA
--- OUTSIDE RECORDS SUMMARY | 2023-08-03 12:51 | XMS_ITS | Continuity of Care Document ---
Author Name Unknown Organization [facility]astro[facility] Address [address] [place] [address]- Care Team Providers Care Melt Down Furnace Operator Name Role Phone Sae Ojeda MD, Brenda Alejo Primary Care Physici an [place] [facility] [place]s): 05/21/23 - 06/20/23 [facility]enterology [address] [place] [address]- Attending Physician: Malcom Mendoza Admitting Physician: Malcom Mendoza Referring Physician: Malcom Mendoza Allergies, Adverse Reactions, Alerts Substance Reaction Severity [...] Fiasp 100 units/mL injectable solution See Instructions, USE WITH INSULIN PUMP. MAX 45 UNITS PER DAY, # 20 mL, 5 Refills, Maintenance, 05/12/23 9:22:00 EDT, [facility], 168, cm, 03/31/23 15:44:00 EDT, Height Start Date: 05/12/23 Status: Ordered fluticasone 50 mcg/inh nasal spray 1 sprays, Nares, Both, 2 times a day, # 16 Gm, 0 Refills, Maintenance, 07/04/14 9:23:44, [place], 1 sprays Nares, Both 2 times a [...] 6 Refills, Maintenance, 11/06/22 12:30:00 EDT, Solution, [facility]/pharmacy #[id number], 168, cm, 10/16/22 9:27:00 [...] 360 tablet, 3 Refills, 03/31/23 16:25:00 EDT, [facility]/pharmacy #[id number], 168, cm, 03/31/23 15:44:00 EDT, Height Start Date: 03/31/23 Status: Ordered Nicorette 2 mg oral transmucosal gum 1 each = 2 mg, Chew, Every 2 hours, PRN for smoking cessation, for 12 week(s), # 192 each, 6 Refills, Acute 01/17/16 9:01:45, 06/08/14 9:01:45, Gum, 1 each Chew Every 2 hours,x12 week(s),PRN:for smoking cessation Start Date: 06/08/14 Stop Date: 01/17/16 Status: Ordered NuLYTELY Lemon [place] oral powder for reconstitution 240 mL, By Mouth, Every 10 minutes, as instructed, # 1 each, 0 Refills, Maintenance, 05/21/23 11:25:00 EDT, REC Powder, [facility], Partial fill upon patient request if the prescription is for a schedule II opioid drug., 168, cm, 1... Start Date: 05/21/23 Status: Ordered omeprazole 20 mg oral delayed [...] Height Start Date: 12/02/22 Status: Ordered Pen [place], 31 G x 8 mm BD Ultra [...] 4 each, 5 Refills, Maintenance, 03/31/23 16:24:00 EDT,[facility]/pharmacy #[id number], Partial fill upon patient request [...] Team Personnel Name: Brenda Tovar MD Position: [facility] Outreach Member Role: PCP Address: Address: [address] [place] [address] [address] [place] [address]- Care Team Related Persons Name: TIMMY MENDES Address: home [address] [place] [address] [place] [address] Name: VAZQUEZ COSTA
--- OUTSIDE RECORDS SUMMARY | 2023-08-03 12:51 | XMS_ITS | Continuity of Care Document ---
Author Name Unknown Organization [facility] Address [address] [facility], 3r d Floor, [address] [place] [address]- Care Team Providers Care Paper Sorter Name Role Phone Sae Ojeda MD, Brenda Alejo Primary Care Physici an [place] [facility] [place]): [place]/23 [facility] [address], [address] Floor, [address] [place] [address]- Attending Physician: Romario Mcqueen MD Admitting Physician: Romario Mcqueen MD Referring Physician: Brenda Tovar MD Allergies, Adverse Reactions, Alerts Substance Reaction Severity [...] WITH INSULIN PUMP. MAX 45 UNITS PER DAY. E11.9, # 20 mL, 5 Refills, Maintenance, 07/27/23 16:48:00 EST, [facility]/pharmacy #[id number], 162.5, cm, 06/18/23 18:57:00 EST, Height Start Date: 07/27/23 Status: Ordered fluticasone 50 mcg/inh nasal spray 1 sprays, Nares, Both, 2 times a day, # 16 Gm, 0 Refills, Maintenance, 07/04/14 9:23:44, [place], 1 sprays Nares, Both 2 times a [...] Refills, Maintenance, 11/06/22 12:30:00 EDT, Solution, [facility]/pharmacy #[id number], 168, cm, 10/16/22 9:27:00 EDT, Height [...] 360 tablet, 3 Refills, 03/31/23 16:25:00 EDT, [facility]/pharmacy #1130, 168, cm, 03/31/23 15:44:00 EDT, Height [...] Stop Date: 01/17/16 Status: Ordered NuLYTELY Lemon [place] oral powder for reconstitution 240 mL, By Mouth, Every 10 minutes, as instructed, # 1 each, 0 Refills, Maintenance, 05/21/23 11:25:00 EDT, REC Powder, [facility], Partial fill upon patient request if [...] Height Start Date: 12/02/22 Status: Ordered Pen [place], 31 G x 8 mm BD Ultra [...] 4 each, 5 Refills, Maintenance, 03/31/23 16:24:00 EDT,[facility]/pharmacy #[id number], Partial fill upon patient request if [...] day sm yovana entered on: 04/02/14 Sex Patient Care team information Care Team Personnel Name: Brenda Tovar MD Position: [facility] Outreach Member Role: PCP Address: Address: [address] [place] [address] [address] [place] [address]- Care Team Related Persons Name: CINTHYABERNARDA Address: [address] [place] [address] Name: VAZQUEZ COSTA
--- OUTSIDE RECORDS SUMMARY | 2023-08-03 12:51 | XMS_ITS | Continuity of Care Document ---
Author Name Unknown Organization [facility] Address [address] [facility], 3r [address] Floor, [address] [place] [address]- Care Team Providers Care Mesmerist Name Role Phone Sae Ojeda MD, Brenda Alejo Primary Care Physici an Encounter [facility] [place] Date(s): 06/30/23 - 07/30/23 [facility] [address], [address], [address] [place] [address]- Attending Physician: Malcom Mendoza Admitting Physician: AdmMalcom [...] mL, 5 Refills, Maintenance, 07/27/23 16:48:00 EST, [id number], 162.5, cm, 06/18/23 18:57:00 EST, Height Start Date: 07/27/23 Status: Ordered fluticasone 50 mcg/inh nasal spray 1 sprays, Nares, Both, 2 times a day, # 16 Gm, 0 Refills, Maintenance, 07/04/14 9:23:44, [place], 1 sprays Nares, Both 2 times a [...] E11.9, # 30 mL, 6 Refills, Maintenance, 04/14/23 12:30:00 EDT, Solution, [facility]/pharmacy #[id number], 168, cm, 10/16/22 9:27:00 EDT, Height [...] 360 tablet, 3 Refills, 03/31/23 16:25:00 EDT, [facility]/pharmacy #[id number], 168, cm, 03/31/23 15:44:00 EDT, Height [...] Stop Date: 01/17/16 Status: Ordered NuLYTELY Lemon [place] oral powder for reconstitution 240 mL, By Mouth, Every 10 minutes, as instructed, # 1 each, 0 Refills, Maintenance, 05/21/23 11:25:00 EDT, REC Powder, [facility], Partial fill upon patient request if [...] Height Start Date: 12/02/22 Status: Ordered Pen [place], 31 G x 8 mm BD Ultra [...] 4 each, 5 Refills, Maintenance, 03/31/23 16:24:00 EDT,[facility]/pharmacy #[id number], Partial fill upon patient request if [...] Team Personnel Name: Brenda Tovar MD Position: [facility] Outreach Member Role: PCP Address: Address: [address] [place] [address] [address] [place] [address]- Care Team Related Persons Name: TIMMY MENDES Address: home [address] [place] [address] [place] [id number] Name: VAZQUEZ COSTA
--- OUTSIDE RECORDS SUMMARY | 2023-08-03 12:51 | XMS_ITS | Continuity of Care Document ---
Author Name Unknown Organization [facility] ter Address [address] [place] [address]- Care Team Providers Care Construction Technician Name Role Phone Sae Ojeda MD, Brenda Alejo Primary Care Physici an Encounter [facility] [place] Date(s): 02/16/23 - 03/18/[address] [address] Attending Physician: Malcom Mendoza Admitting Physician: AdmMalcom [...] mL, 5 Refills, Maintenance, 10/16/22 15:24:00 EDT, [facility], Partial fill upon patient request if the prescription is for a schedule II opioid drug.... Start Date: 10/16/22 Status: Ordered fluticasone 50 mcg/inh nasal spray 1 sprays, Nares, Both, 2 times a day, # 16 Gm, 0 Refills, Maintenance, 07/04/14 9:23:44, [place], 1 sprays Nares, Both 2 times a [...] 360 tablet, 3 Refills, 09/08/22 15:35:00 EST, [facility], 168, cm, 09/08/22 14:45:00 EST, [...] Height Start Date: 12/02/22 Status: Ordered Pen [place], 31 G x 8 mm BD Ultra [...] 4 each, 5 Refills, Maintenance, 05/15/21 13:23:00 EDT,[facility]/pharmacy #[id number], Partial fill upon patient request if the [...] Name: Sae Ojeda MD, Brenda Alejo Position: [facility] Outreach Member Role: PCP Address: Address: [address] [place] [address]- Care Team Related Persons Name: TIMMY MENDES Address: home [address] [place] [address] [place] [address] Name: VAZQUEZ COSTA
--- OUTSIDE RECORDS SUMMARY | 2023-08-03 12:51 | XMS_ITS | Continuity of Care Document ---
Author Name Unknown Organization [facility] Address [address] [place] [address]- Care Team Providers Care Tower Equipment Installer Name Role Phone Sae Ojeda MD, Brenda Alejo Primary Care Physici an [place] [facility] [place](s): 05/24/23 - 06/23/23 [facility] [address] [place] [address]- [place] Allergies, Adverse Reactions, Alerts Substance Reaction Severity [...] mL, 5 Refills, Maintenance, 05/12/23 9:22:00 EDT, [facility], 168, cm, 03/31/23 15:44:00 EDT, Height Start Date: 05/12/23 Status: Ordered fluticasone 50 mcg/inh nasal spray 1 sprays, Nares, Both, 2 times a day, # 16 Gm, 0 Refills, Maintenance, 07/04/14 9:23:44, [place], 1 sprays Nares, Both 2 times a [...] 360 tablet, 3 Refills, 03/31/23 16:25:00 EDT, [facility]/pharmacy #[id number], 168, cm, 03/31/23 15:44:00 EDT, [...] Stop Date: 01/17/16 Status: Ordered NuLYTELY Lemon [place] oral powder for reconstitution 240 mL, By Mouth, Every 10 minutes, as instructed, # 1 each, 0 Refills, Maintenance, 05/21/23 11:25:00 EDT, REC Powder, [facility], Partial fill upon patient request if [...] Height Start Date: 12/02/22 Status: Ordered Pen [place], 31 G x 8 mm BD Ultra [...] 4 each, 5 Refills, Maintenance, 03/31/23 16:24:00 EDT,[facility]/pharmacy #[id number], Partial fill upon patient request [...] Name: Sae Ojeda MD, Brenda Alejo Position: [facility] Outreach Member Role: PCP Address: Address: [address] [place] [address] [address] [place] [address]- Care Team Related Persons Name: TIMMY MENDES Address: [address] [place] [address] Name: VAZQUEZ COSTA
--- OUTSIDE RECORDS SUMMARY | 2023-08-03 12:51 | XMS_ITS | Continuity of Care Document ---
Author Name Unknown Organization [facility] ter Address [address] [place] [address]- Care Team Providers Care Certified Registered Nurse Practitioner Name Role Phone Sae Ojeda MD, Brenda Alejo Primary Care Physici an [place] [facility] 06/18/23 - 06/18/[address] [address]- Discharge Disposition: A-D/C Walkout Attending Physician: Not on Staff, Attending MD Admitting Physician: Not on Staff, Admitting MD Referring Physician: Not on Staff, Referring MD Allergies, Adverse Reactions, Alerts Substance Reaction [...] mL, 5 Refills, Maintenance, 05/12/23 9:22:00 EDT, [facility], 168, cm, 03/31/23 15:44:00 EDT, Height Start Date: 05/12/23 Status: Ordered fluticasone 50 mcg/inh nasal spray 1 sprays, Nares, Both, 2 times a day, # 16 Gm, 0 Refills, Maintenance, 07/04/14 9:23:44, [place], 1 sprays Nares, Both 2 times a [...] 6 Refills, Maintenance, 11/06/22 12:30:00 EDT, Solution, [facility]/pharmacy #[id number], 168, cm, 10/16/22 9:27:00 [...] 360 tablet, 3 Refills, 03/31/23 16:25:00 EDT, [facility]/pharmacy #[id number], 168, cm, 03/31/23 15:44:00 EDT, Height [...] Stop Date: 01/17/16 Status: Ordered NuLYTELY Lemon [place] oral powder for reconstitution 240 mL, By Mouth, Every 10 minutes, as instructed, # 1 each, 0 Refills, Maintenance, 05/21/23 11:25:00 EDT, REC Powder, [facility], Partial fill upon patient [...] Height Start Date: 12/02/22 Status: Ordered Pen [place], 31 G x 8 mm BD Ultra [...] 4 each, 5 Refills, Maintenance, 03/31/23 16:24:00 EDT,[facility]/pharmacy #[id number], Partial fill upon patient [...] 7% Confirmed Active 1no PFTs on record Vital Signs Most recent to oldest [Reference Range]: 1 2 3 Height 162.5 cm (06/18/23 6:57 PM) 162.5 cm (06/18/23 4:48 PM) 162.5 cm (06/18/23 2:31 PM) Weight 72.7 kg (06/18/23 6:57 PM) 72.7 kg (06/18/23 4:48 PM) 72.7 kg (06/18/23 2:31 PM) Oxygen Saturation [94-100 %] 98 % (06/18/23 6:57 PM) 99 % (06/18/23 4:48 PM) 92 % *L* (06/18/23 2:31 PM) Pulse Rate [55-90 bpm] 87 bpm (06/18/23 6:57 PM) 89 bpm (06/18/23 4:48 PM) 95 bpm *H* (06/18/23 2:31 PM) Body Mass Index [18.5-24.99 kg/m2] 27.53 kg/m2 *H* (06/18/23 6:57 PM) 27.53 kg/m2 *H* (06/18/23 4:48 PM) 27.53 kg/m2 *H* (06/18/23 2:31 PM) Blood Pressure [90-138/55-84 mm Hg] 122/89mm Hg (06/18/23 6:57 PM) 119/65mm Hg (06/18/23 4:48 PM) 108/86mm Hg (06/18/23 2:31 PM) Respiratory Rate [16-30 br/min] 16 br/min (06/18/23 6:57 PM) 17 br/min (06/18/23 4:48 PM) 18 br/min (06/18/23 2:31 PM) Temperature [96.8-100.4 DegF] 98.9 DegF (06/18/23 6:57 PM) 99.2 DegF (06/18/23 4:48 PM) 98.8 DegF (06/18/23 2:31 PM) Mode of Delivery (Oxygen) Room air (06/18/23 6:57 PM) Room air (06/18/23 4:48 PM) Room air (06/18/23 2:31 PM) Blood pressure sites Arm, right (06/18/23 6:57 PM) Arm, right (06/18/23 4:48 PM) Arm, right (06/18/23 2:31 PM) Temperature Route Oral (06/18/23 6:57 PM) Oral (06/18/23 4:48 PM) Oral (06/18/23 2:31 PM) Social History Social History Type Response Smoking Status Current every day jan yen entered on: 04/02/14 Sex Patient Care team information Care Team Personnel Name: Brenda Tovar MD Position: [facility] Outreach Member Role: PCP Address: Address: [address] [place] [address] [address] [place] [address]- Care Team Related Persons Name: TIMMY MENDES Address: home [address] [place] [address] Name: VAZQUEZ COSTA
--- NOTE | 2023-08-03 12:56 | A.OFFVIS_ITS ---
Intake Vital Signs 08/03/23 13:40 08/03/23 13:41 Height 5 ft 5 in 5 ft 5 in Weight 169 lb 169 lb BMI 28.1 28.1 BP 128/90 H 124/88 Blood Pressure Location Lt brachial Lt brachial Position Sitting Sitting Respiration 16 16 Pulse 84 82 Pulse Source Pulse Oximeter Pulse Oximeter Pulse Oximetry (%) 99 100 Oxygen Delivery Method Room Air Room Air Comment pre-op post-op Intake Visit Reasons: LEFT SUPRASCAPULAR NERVE BLOCK Allergies Penicillins [PENICILLINS] Allergy (Intermediate, Verified 08/03/23 13:42) HIVES ibuprofen Allergy (Unknown, Verified 08/03/23 13:42) unknown penicillin V Allergy (Unknown, Verified 08/03/23 13:42) Unknown NSAIDS (Non-Steroidal Anti-Inflamma [NSAIDS (NON-STEROIDAL ANTI-INFLAMMA] Adverse Reaction (Mild, Verified 08/03/23 13:42) STOMACH UPSET PFSH Medical History Lipoma of abdominal wall T2DM (type 2 diabetes mellitus) Arthritis of knee Restless leg syndrome Sleep apnea Gastritis High cholesterol Hypertension Fibromyalgia Arthritis Migraines Diabetes Asthma Surgical History Hx of fusion of cervical spine Hx of breast biopsy Hx of arthroscopic knee surgery Hx of cholecystectomy History of esophagogastroduodenoscopy (EGD) History of carpal tunnel release Hx of hysterectomy Family History Father No problems noted. Mother HTN (hypertension) Arthritis Diabetes Maternal Aunt Cancer of unknown origin Social History Alcohol intake: never Patient Tobacco Use Status: Current everyday Tobacco user Substance Use Type: Crack/Cocaine Current occupational status: unemployed Current occupation: right handed Physical Exam Vital Signs: Last Vital Signs Pulse 82 08/03/23 13:41 Resp 16 08/03/23 13:41 BP 124/88 08/03/23 13:41 Pulse Ox 100 08/03/23 13:41 Oxygen Delivery Method Room Air 08/03/23 13:41 BMI result Body Mass Index 28.1 Assessment & Plan Assessment & Plan (1) Lumbar spondylosis: Code(s): M47.816 - Spondylosis without myelopathy or radiculopathy, lumbar region (2) Myofascial low back pain: Code(s): M54.50 - Low back pain, unspecified (3) Fibromyalgia: Code(s): M79.7 - Fibromyalgia (4) Left shoulder pain: Code(s): M25.512 - Pain in left shoulder Plan: Diagnostic left suprascapular nerve block injection. Informed consent was explained thoroughly to the patient. All questions about benefits and risks for the procedure were answered. Patient came to the operating room and was positioned prone on the operating table with the pillow under the chest. Time-out was performed delineating site and side of the procedure name minute of of the patient. The left shoulder left side of the neck and left upper back of the patient were prepped with ChloraPrep prepped and draped with sterile utility self adhesive towels. C-arm was brought over the operating field and sq picture of patient's scapula was demonstrated on the screen. suprascapular notch was chosen as a target of the injection. Projection of the target to the skin was injected with small amount of lidocaine 2% 2 mL. After that 22 gauge 3 and 1/2 inch needle was driven to the left suprascapular notch in tunnel vision fashion. When the needle gently contacted the bone at the point of interest injection of the contrast was performed demonstrating no intravascular spread of the contrast. After that 3 cc. of ropivacaine 0.5% was injected into the needle. Upon completion of the injections the needle was removed . Sterile dressing was applied. Upon completion of the injection patient was taken outside of the operating room to the recovery room where recovered uneventfully. Carlton Fermin is a very pleasant 52-year-old female who presented to the office today for evaluation management of her chronic left shoulder, middle back, lower back and bilateral leg pain. Patient main focus today was left shoulder pain as this is her most debilitating currently. Patient has exhausted conservative treatment including physical therapy, home e xercise program, or medications, muscle relaxers. Discussed options for treatment including diagnostic interventional testing, steroid injections, peripheral nerve stimulation with Sprint, RFA and more permanent neuromodulation. Informational pamphlets provided. Will schedule for left diagnostic ultrasound-guided suprascapular nerve block with local anesthetic. If patient reports relief in the hours after the diagnostic injection will plan for left suprascapular Sprint peripheral nerve stimulator placement. X-ray lumbar spine ordered for evaluation as she does not have any recent imagi ng of her lower back. Patient advised that after treatment of her shoulder pain we can then focus on next most troublesome area. Follow-up with [facility] as planned, follow-up with neurology as planned. Patient aware that if [facility] offers her surgical intervention to call our office to postpone the diagnostic injection. Continue with gabapentin and methocarbamol as prescribed. All questions and concerns have been answered and patient agrees with the plan. Follow up after injections and sooner if needed. Orders: Orders [place] guidance in treatment room Today M25.512 - Pain in left shoulder Coding Level of Care Code Procedure Only Diagnoses Lumbar spondylosis M47.816 Myofascial low back pain M54.50 Fibromyalgia M79.7 Left shoulder pain M25.512
[2023-08-03 13:40] VITALS: BP 128/90; PULSE 84; RESP 16; O2SAT 99; BMI 28.1
[2023-08-03 13:41] VITALS: BP 124/88; PULSE 82; RESP 16; O2SAT 100; BMI 28.1
== END 2023-08-03 14:18 | disposition home or self-care (01) ==
LOC: HO.PMCPRC 12:49
PROVIDERS: PCP Internal Medicine; Visit Provider Anesthesiology
DX: M25.512 Pain in left shoulder (principal); M47.816 Spondylosis without myelopathy or radiculopathy, lumbar region; M54.50 Low back pain, unspecified; M79.7 Fibromyalgia
CPT/HCPCS: 64418; 77002

== ENCOUNTER 2023-08-31 13:04 | Outpatient (AMB) | payer OTHER, SELFPAY ==
--- NOTE | 2023-08-31 13:05 | MHC.OFFVIS ---
Intake Vital Signs 08/31/23 13:14 Height 5 ft 5 in Weight 199 lb 8 oz BMI 33.2 BP 146/75 H Blood Pressure Location Lt brachial Position Sitting Pulse 103 H Pulse Source Pulse Oximeter Pulse Oximetry (%) 97 Oxygen Delivery Method Room Air Intake Visit Reasons: LEFT SUPRASCAPULAR NERVE BLOCK/08/03/23/confirmed Intake Note: Pain today 05/04 Professional Engineer Required: No Accompanied by: Other Relationship Allergies Penicillins [PENICILLINS] Allergy (Intermediate, Verified 08/31/23 13:11) HIVES ibuprofen Allergy (Unknown, Verified 08/31/23 13:11) unknown penicillin V Allergy (Unknown, Verified 08/31/23 13:11) Unknown NSAIDS (Non-Steroidal Anti-Inflamma [NSAIDS (NON-STEROIDAL ANTI-INFLAMMA] Adverse Reaction (Mild, Verified 08/31/23 13:11) STOMACH UPSET HPI HPI Comments History of Present Illness Details Patient presents today to assess response to Left suprascapular nerve block on 08/03/[address] Carlson. Patient reports 0% pain relief since procedure. Patient reports increase in her left shoulder pain since injections which also exacerbated her fibromyalgia symptoms. Patient reports she fell on ice on 08/23/23 and landed on her left side and injured her left knee. She reports chronic bilateral knee pain. We will proceed with obtaining xrays of her knees. She is very hesitant to any further injections at this time. Patient is allergic to NSAIDs and notes Tylenol and ice therapy has not been effective. Denies any recent cough, cold, infection, fever, or any other significant changes in her medical history, medications or recent hospitalizations. Past Procedures: 08/03/23: Left suprascapular nerve block-0% pain relief PRIOR Suzette 07/06/23: Jeny is a very pleasant 48-year-old female who presents the office today, accompanied by her significant other, for evaluation management of her chronic left shoulder pain. Patient reports that she has been suffering with this pain for many years. She is currently on gabapentin and methocarbamol without relief of her pain. She recently saw orthopedics and did not receive any treatment, was referred to Neurology. Patient's primary care doctor referred her to and [facility], she is waiting for an appointment in their office. She has tried physical therapy in the past, reports that it did not work. She has had injection of steroids in the past that also did not provide any benefit. She reports that home exercises are too painful. She endorses pain with any use of the left arm. She states she has numbness and tingling to the left hand, she did have nerve conduction study May of 2022, results as per below. Patient has a documented history of fibromyalgia, she is currently awaiting appointment with a neurologist at [facility]. Patient reports 10/10 left shoulder pain, worse with any movement. She also endorses mid and lower back pain and pain in both of her legs. In terms of muscle damage condition is described as sharp, shooting, stabbing, aching, burning and tingling. Pain is negatively impacting patient's normal sleep, ability to perform activities of daily living, ability to care for self and function normally. [facility] Medical History Lipoma of abdominal wall T2DM (type 2 diabetes mellitus) Arthritis of knee Restless leg syndrome Sleep apnea Gastritis High cholesterol Hypertension Fibromyalgia Arthritis Migraines Diabetes Asthma Surgical History Hx of fusion of cervical spine Hx of breast biopsy Hx of arthroscopic knee surgery Hx of cholecystectomy History of esophagogastroduodenoscopy (EGD) History of carpal tunnel release Hx of hysterectomy Family History Father No problems noted. Mother HTN (hypertension) Arthritis Diabetes Maternal Aunt Cancer of unknown origin Social History Alcohol intake: never Patient Tobacco Use Status: Current everyday Tobacco user Substance Use Type: Crack/Cocaine Current occupational status: unemployed Current occupation: right handed Review of Systems Const All systems reviewed & are unremarkable except as noted in HPI and below Neuro Denies Sensory deficit (Neuro) Physical Exam General: Appears afebrile. Alert and oriented. Mood and affect appropriate. Follows and participates in conversation appropriately. Respiratory effort is unlabored. No cough. No nasal discharge. Able to transition from sit to stand unassisted. Ambulates with bilaterally normal heel strike and toe off. Back/Spine/Pelvis Other: Multiple widespread TTPs 16/16 bilaterally, including upper and lower extremities. Cervical Spine: cervical ROM normal, cervical muscular tenderness and No Cervical spine tenderness Thoracic/Lumbar Spine: pain with thoraco-lumbar ROM, thoraco-lumbar ROM limited, No thoracic spinal tenderness and lumbar spinal tenderness at L4 and at L5 Neuro General: Normal light touch and pain sensation Cognition (Neuro): normal cognition Gait exam (Neuro): Normal gait present Motor exam (neuro): 5/5 motor strength present throughout (4/5 LUE due to pain) and Motor abnormalites present tics and tardive dyskinesia Sensory Exam: No Sensory deficit (Neuro) Extrem General: Yes capillary refill normal, Yes no clubbing, cyanosis or edema and Yes no calf tenderness Left upper extremity: shoulder/upper arm (Pain with I/E rotations. TTP to anterior and posterior aspects) Details: no swelling, no crepitus and no unsual warmth Right lower extremity: knee Details: tenderness Location: of the medial joint line and of the lateral joint line, normal ROM and crepitus; no swelling Left lower extremity: knee (Limited ROM due to pain.) Details: tenderness Location: of the medial joint line and of the lateral joint line and crepitus; no swelling, no ecchymosis and no unusual warmth Psych Appearance: grossly normal Mental Status: mental status grossly normal Speech and movement: Normal speech and movement present Affect: normal affect and Anxious affect present Attitude: cooperative Thought process: Normal thought process present Thought content: Normal thought content present Insight: Good insight present (Psych) Judgement: Good judgement present (Psych) Assessment & Plan Assessment & Plan (1) Arthritis of knee: Code(s): M17.10 - Unilateral primary osteoarthritis, unspecified knee (2) Bilateral knee pain: Code(s): M25.561 - Pain in right knee; M25.562 - Pain in left knee (3) Left shoulder pain: Code(s): M25.512 - Pain in left shoulder (4) Myofascial low back pain: Code(s): M54.50 - Low back pain, unspecified (5) Lumbar spondylosis: Code(s): M47.816 - Spondylosis without myelopathy or radiculopathy, lumbar region (6) Fibromyalgia: Code(s): M79.7 - Fibromyalgia Plan Patient presents today with debilitating left shoulder pain and no pain relief with recent Left suprascapular nerve block on 08/03/23. Patient has exhausted conservative treatment including physical therapy, home exercise program, or medications, muscle relaxers. She has pending Orthopedic evaluation at [facility]. Bilateral knee xray to assess degree of arhritis and follow up for recent fall. Briefly discussed interventional treatments for knee pain. Patient is hesitant towards any further injections at this time as she is suffering from significant fibromyalgia flare-up and tardive dyskinesia. She also has pending Neurology evaluation for tardive dyskinesia and she will reach out to her Psychiatrist to review extrapyramidal side effects, including for perphenazine. Reminded patient to complete X-ray lumbar spine which was ordered at previous visit with Suzette ROSADO. Short script sent to patient's [facility] pharmacy for Tylenol #3 for left shoulder and knee pain. Patient cannot take NSAIDs. Advised ice and heat therapy and elevation. All questions and concerns have been answered and patient agrees with the plan. Follow up for xray results and sooner if needed. Orders: Orders XR knee LT 3V Today M17.10 - Unilateral primary osteoarthritis, unspecified knee, M25.561 - Pain in right knee, M25.562 - Pain in left knee XR knee RT 3V Today M17.10 - Unilateral primary osteoarthritis, unspecified knee, M25.561 - Pain in right knee, M25.562 - Pain in left knee Medications: New acetaminophen-codeine 300-30 mg 1 tab PO BID 15 days PRN 30 tabs 0RF pain M25.512 - Pain in left shoulder, M25.561 - Pain in right knee, M25.562 - Pain in left knee Coding Level of Care Code Est Pt Level 4 (37752) Diagnoses Arthritis of knee M17.10 Bilateral knee pain M25.561; M25.562 Left shoulder pain M25.512 Myofascial low back pain M54.50 Lumbar spondylosis M47.816 Fibromyalgia M79.7
[2023-08-31 13:14] VITALS: BP 146/75; PULSE 103; O2SAT 97; BMI 33.2
== END 2023-08-31 13:35 | disposition home or self-care (01) ==
PROVIDERS: PCP Internal Medicine; Visit Provider Nurse Practitioner Family
DX: M17.10 Unilateral primary osteoarthritis, unspecified knee (principal); M25.561 Pain in right knee; M25.562 Pain in left knee; M25.512 Pain in left shoulder; M54.50 Low back pain, unspecified; M47.816 Spondylosis without myelopathy or radiculopathy, lumbar region; M79.7 Fibromyalgia
CPT/HCPCS: 99214

== ENCOUNTER → 2023-08-31 13:04 | Outpatient (BNVA) | payer OTHER, SELFPAY | PROVIDERS: PCP Internal Medicine; Visit Provider Nurse Practitioner Family | DX: M17.10 Unilateral primary osteoarthritis, unspecified knee (principal); M25.561 Pain in right knee; M25.562 Pain in left knee; M25.512 Pain in left shoulder; M54.50 Low back pain, unspecified; M47.816 Spondylosis without myelopathy or radiculopathy, lumbar region; M79.7 Fibromyalgia | CPT/HCPCS: 99212 ==

== ENCOUNTER 2023-12-16 11:47 | Outpatient (REF) | payer OTHER, SELFPAY ==
[2023-12-16 14:21] LABS: TSH reflex Free T4 1.34 uIU/mL (0.32-4.0)
== END 2023-12-16 11:48 | disposition home or self-care (01) ==
LOC: HO.HHCL 11:47
PROVIDERS: Visit Provider Internal Medicine
DX: R63.5 Abnormal weight gain (principal)
CPT/HCPCS: 36415; 84443

== ENCOUNTER 2024-02-11 10:59 | Outpatient (AMB) | payer OTHER, SELFPAY ==
--- NOTE | 2024-02-11 11:00 | A.OFFVIS_ITS ---
Intake Visit Reasons: OV- Chronic left shoulder pain Intake Note: Jeny is a 53 year old female who presents to the office today for chronic left shoulder pain. Pt states she has pain in both shoulders but the left is worse. Pt states the pain is from her shoulder down to her fingers. Pt states she gets numbness and tingling and has pain when she tries to make a fist. She states she is also having trouble sleeping due to the pain. Allergies Penicillins [PENICILLINS] Allergy (Intermediate, Verified 02/11/24 11:00) HIVES ibuprofen Allergy (Unknown, Verified 02/11/24 11:00) unknown penicillin V Allergy (Unknown, Verified 02/11/24 11:00) Unknown NSAIDS (Non-Steroidal Anti-Inflamma [NSAIDS (NON-STEROIDAL ANTI-INFLAMMA] Adverse Reaction (Mild, Verified 02/11/24 11:00) STOMACH UPSET HPI HPI OV- Chronic left shoulder pain: Details: 53-year-old female who returns to the office today for a follow-up of chronic left shoulder pain. She reports she has pain in her bilateral shoulders that is worse on her left shoulder. Her pain starts from the shoulder and radiates down to her fingers. She also experiences numbness, tingling and pain with trying to make a fist. Her pain makes it unable to sleep at night. [facility], [facility]1983 Medical History Lipoma of abdominal wall T2DM (type 2 diabetes mellitus) Arthritis of knee Restless leg syndrome Sleep apnea Gastritis High cholesterol Hypertension Fibromyalgia Arthritis Migraines Diabetes Asthma Surgical History Hx of fusion of cervical spine Hx of breast biopsy Hx of arthroscopic knee surgery Hx of cholecystectomy History of esophagogastroduodenoscopy (EGD) History of carpal tunnel release Hx of hysterectomy Family History Father No problems noted. Mother HTN (hypertension) Arthritis Diabetes Maternal Aunt Cancer of unknown origin Social History Alcohol intake: never Patient Tobacco Use Status: Current everyday Tobacco user Substance Use Type: Crack/Cocaine Current occupational status: unemployed Current occupation: right handed Review of Systems Const All systems reviewed & are unremarkable except as noted in HPI and below Physical Exam Extrem Other: Left shoulder: Normal to inspection. Tenderness over the bicipital groove and along the deltoid region of the shoulder. Forward flexion to 175, difficulty with internal rotation, external rotation to 45 and I can passively externally rotate her to 50 degrees. 5/5 RTC strength. Negative Fox and cross body abduction. NVI. Assessment & Plan Assessment & Plan (1) Adhesive capsulitis of left shoulder: Code(s): M75.02 - Adhesive capsulitis of left shoulder Category: Medical Plan I did put in a referral for glenohumeral joint injection under fluoroscopy in the hospital. I also put her in a course of physical therapy to work on aggressive ROM. If symptoms persist or worsen after the injection and therapy, patient will contact the office for MRI imaging of the left shoulder, otherwise follow-up as needed. Orders: Orders FL arthrogram shoulder LT Today M75.02 - Adhesive capsulitis of left shoulder PT Evaluation and Treatment Today M75.02 - Adhesive capsulitis of left shoulder Patient Instructions: Scribed for Connor Angulo PA-C, by Hardik Marvin emergency medical services coordinator, on 02/11/2024 at 11:00 AM EST.? I, Connor Angulo PA-C, have personally reviewed and agree with the information entered by the scribe. Coding Level of Care Code Est Pt Level 3 (61747) Diagnoses Adhesive capsulitis of left shoulder M75.02
== END 2024-02-11 11:32 | disposition home or self-care (01) ==
PROVIDERS: PCP Internal Medicine; Visit Provider Physician Assistant
DX: M75.02 Adhesive capsulitis of left shoulder (principal)
CPT/HCPCS: 99213

== ENCOUNTER → 2024-02-11 10:59 | Outpatient (BNVA) | payer OTHER, SELFPAY | PROVIDERS: PCP Internal Medicine; Visit Provider Physician Assistant | DX: M75.02 Adhesive capsulitis of left shoulder (principal) | CPT/HCPCS: 99212 ==

== ENCOUNTER 2024-03-21 14:30 | Outpatient (REF) | payer OTHER, SELFPAY ==
--- NOTE | ~2024-03-21 | XR_ITS ---
EXAMINATION: XR ELBOW, RIGHT CLINICAL INFORMATION: Status post fall. COMPARISON: None available. TECHNIQUE: AP, lateral, and oblique views of the right elbow. FINDINGS: The bones and soft tissues are normal. No fracture or joint effusion. Alignment is anatomic. Joint spaces are maintained. XR/XR elbow RT 2V IMPRESSION: Normal right elbow. Of note this exam was presented for interpretation on 04/11/2024. Electronically signed by: Flex Bingham MD 04/11/2024 07:29 AM EDT
--- NOTE | ~2024-03-21 | XR_ITS ---
EXAMINATION: Bilateral knee series CLINICAL INFORMATION: Bilateral knee pain. Fall. COMPARISON: X-rays of the knees September 2019 TECHNIQUE: 4 views of each knee FINDINGS: Right knee: The bones, Joints and soft tissues are normal. No effusion. No fracture. Left knee: There is chondrocalcinosis. No joint space narrowing. Marginal osteophytes about all compartments indicative of mild tricompartmental osteoarthritis unchanged. XR/XR knee LT 4V IMPRESSION: RIGHT KNEE: Normal. LEFT KNEE: Chondrocalcinosis and mild osteoarthritis unchanged. Electronically signed by: Flex Bingham MD 04/11/2024 07:25 AM EDT
--- NOTE | ~2024-03-21 | XR_ITS ---
EXAMINATION: XR HAND, RIGHT CLINICAL INFORMATION: right hand pain COMPARISON: January 2023 right hand x-ray TECHNIQUE: PA, lateral, and oblique views of the right hand. FINDINGS: The bones and soft tissues are normal. No fracture. Alignment is anatomic. Joint spaces are maintained. No erosions or soft tissue calcifications. XR/XR hand RT min 3V IMPRESSION: Normal right hand. Electronically signed by: Flex Bingham MD 04/11/2024 07:31 AM EDT
--- NOTE | ~2024-03-21 | XR_ITS ---
EXAMINATION: Bilateral knee series CLINICAL INFORMATION: Bilateral knee pain. Fall. COMPARISON: X-rays of the knees September 2019 TECHNIQUE: 4 views of each knee FINDINGS: Right knee: The bones, Joints and soft tissues are normal. No effusion. No fracture. Left knee: There is chondrocalcinosis. No joint space narrowing. Marginal osteophytes about all compartments indicative of mild tricompartmental osteoarthritis unchanged. XR/XR knee RT 4V IMPRESSION: RIGHT KNEE: Normal. LEFT KNEE: Chondrocalcinosis and mild osteoarthritis unchanged. Electronically signed by: Flex Bingham MD 04/11/2024 07:25 AM EDT
== END 2024-03-21 14:31 | disposition home or self-care (01) ==
LOC: HO.HHCX 14:30
PROVIDERS: Visit Provider Internal Medicine
DX: M25.521 Pain in right elbow (principal); M25.561 Pain in right knee; M25.562 Pain in left knee; M79.641 Pain in right hand; N39.0 Urinary tract infection, site not specified
CPT/HCPCS: 73070; 73130; 73564; 87086; 87088; 87186

== ENCOUNTER 2024-03-28 11:07 | Outpatient (REF) | payer OTHER, SELFPAY ==
[2024-03-28 14:01] LABS: Creatinine Urine 28.16 mg/dL; Microalbum/Creatinine Ratio Ur 102.9 ug/mg cr (<30)
[2024-03-28 14:19] LABS: Alanine Aminotransferase 23 U/L (0-31); Albumin Level 4.2 g/dL (3.5-5.0); Alkaline Phosphatase 132 U/L (39-117); Anion Gap 16 (12-20); Aspartate Amino Transferase 14 U/L (5-31); Bilirubin Total 0.2 mg/dL (0.0-1.0); Blood Urea Nitrogen 18 mg/dL (9-16); Calcium 9.9 mg/dL (8.4-10.2); Carbon Dioxide 24 mmol/L (22-29); Chloride 99 mmol/L (96-108); Cholesterol 168 mg/dL (<200); Estimated Glomerular Filt Rate 42; Glucose Random 470 mg/dL (60-115); HDL Cholesterol 50 mg/dL (>40); LDL Cholesterol Calculated 68 mg/dL (<100); Potassium 4.9 mmol/L (3.3-5.1); Sodium 134 mmol/L (135-145); Total Protein 8.1 g/dL (6.5-8.0); Triglycerides 254 mg/dL (<150)
[2024-03-28 15:03] LABS: Reflex LDLD? No
== END 2024-03-28 11:08 | disposition home or self-care (01) ==
LOC: HO.HHCL 11:07
PROVIDERS: Visit Provider Internal Medicine
DX: E11.9 Type 2 diabetes mellitus without complications (principal); Z79.4 Long term (current) use of insulin
CPT/HCPCS: 36415; 80053; 80061; 82043; 82570

== ENCOUNTER 2024-04-28 10:02 | Outpatient (REF) | payer OTHER, SELFPAY ==
--- NOTE | 2024-04-28 10:17 | ECG_ITS ---
Test Reason : PRE OP Blood Pressure : / mmHG Vent. Rate : 093 BPM Atrial Rate : 093 BPM P-R Int : 146 ms QRS Dur : 084 ms QT Int : 372 ms P-R-T Axes : 068 031 037 degrees QTc Int : 462 ms Normal sinus rhythm Normal ECG When compared with ECG of 15-FEB-2023 17:22, Nonspecific T wave abnormality is no longer Present Referred By: Yudelka Chavez Electronically Signed By:WENDY VELASCO
[2024-04-28 10:24] LABS: MANUAL DIFF FLAG NO
[2024-04-28 11:03] LABS: Basophils Percent Auto 0.3 % (0-2); Eosinophils Absolute Auto 0.5 X10*3/uL (0.0-0.4); Eosinophils Percent Auto 5.1 % (0-4); Hematocrit 32.5 % (37.0-47.0); Imm Gran Abs Auto 0.05 X10*3/uL (0.00-0.03); Imm Gran Pct Auto 0.5 % (0.0-0.4); Lymphocytes Absolute Auto 1.8 X10*3/uL (1.2-4.9); Lymphocytes Percent Auto 17.2 % (20-40); Mean Corpuscular HGB Conc 30.8 g/dl (31.0-35.0); Mean Corpuscular Hemoglobin 26.7 pg (27.0-33.0); Mean Corpuscular Volume 86.7 fL (80.0-98.0); Mean Platelet Volume 10.4 fL (9.4-12.3); Monocytes Absolute Auto 0.6 X10*3/uL (0.1-1.2); Monocytes Percent Auto 5.5 % (2-11); Neutrophils Absolute Auto 7.5 x10*3/uL (2.0-8.3); Neutrophils Percent Auto 71.4 % (45-73); Platelet Count 249 X10*3/uL (160-400); Red Blood Count 3.75 X10*6/uL (4.20-5.50); White Blood Count 10.6 X10*3/uL (4.8-10.8)
[2024-04-28 13:09] LABS: Anion Gap 18 (12-20); Blood Urea Nitrogen 16 mg/dL (9-16); Carbon Dioxide 18 mmol/L (22-29); Chloride 106 mmol/L (96-108); Estimated Glomerular Filt Rate > 60; Glucose Random 199 mg/dL (60-115); Iron 56 mcg/dL (30-160); Percent Iron Saturation 17 % (15-50); Potassium 4.5 mmol/L (3.3-5.1); Sodium 137 mmol/L (135-145); Total Iron Binding Capacity 323 mcg/dL (228-428); Unsaturated Iron Binding 267 ug/dL
[2024-04-28 13:25] LABS: Ferritin 49 ng/mL (10-250)
== END 2024-04-28 10:03 | disposition home or self-care (01) ==
LOC: HO.LAB 10:02
PROVIDERS: PCP Internal Medicine; Visit Provider Family Medicine
DX: Z01.818 Encounter for other preprocedural examination (principal); E11.65 Type 2 diabetes mellitus with hyperglycemia; Z79.4 Long term (current) use of insulin
CPT/HCPCS: 36415; 80048; 82728; 83540; 85025; 93005

== ENCOUNTER 2024-05-30 12:37 | Outpatient (REF) | payer OTHER, SELFPAY ==
--- NOTE | ~2024-05-30 | FL_ITS ---
FLUOROSCOPIC GUIDED LEFT SHOULDER STEROID INJECTION INDICATIONS: Left shoulder pain. Intra-articular gadolinium injection is needed prior to MRI. PROCEDURE: Risks and benefits and possible complications were discussed with the patient and the consent form was signed. The patient was placed supine on the fluoroscopy table. The left shoulder was prepped and draped in normal sterile fashion. 1% buffered lidocaine was used for anesthesia. A 22-gauge spinal needle was used to access the shoulder joint. Intra-articular position of the needle within the shoulder joint was verified using 3 cc of Omnipaque 300. A total of 5 mL 1% lidocaine and 40 mg Depo-Medrol was then injected into the shoulder joint. The needle was then removed and a Band-Aid was applied to the injection site. The patient tolerated the procedure well. There were no immediate complications. FL/FL arthrogram shoulder LT IMPRESSION: Successful fluoroscopic left shoulder intra-articular steroid injection. The procedure was performed by janice Giles PA-C, and directly supervised by Dr. Campbell. Electronically signed by: Kings Campbell MD 05/30/2024 04:08 PM ALETHA
== END 2024-05-30 12:38 | disposition home or self-care (01) ==
LOC: HO.XRAY 12:37
PROVIDERS: PCP Internal Medicine; Visit Provider Physician Assistant
DX: M75.02 Adhesive capsulitis of left shoulder (principal)
CPT/HCPCS: 20610; 23350; 73040; 77002; J1010; J2003

== ENCOUNTER → 2024-05-30 12:39 | Outpatient (BNV) | payer OTHER, SELFPAY | PROVIDERS: PCP Internal Medicine; Visit Provider Physician Assistant Surgical | DX: M75.02 Adhesive capsulitis of left shoulder (principal) | CPT/HCPCS: 23350; 73040 ==

== ENCOUNTER → 2024-06-01 09:49 | Outpatient (REF) | payer OTHER, SELFPAY ==
--- NOTE | 2024-06-01 09:52 | CA_ITS ---
Transthoracic Echocardiogram Patient (Last, First, Middle): Jeny Vides E Gender: Female Date of : 1970 Age: 53 Procedure Date: 06/01/2024 Procedure Type: Transthoracic Echocardiogram Location: OP Height: 165.1 cm Weight: 99.34 kg BSA: 2.06 m2 Heart Rate: bpm BP: 126 / 70 mmHg Tax Analyst: GRIS Referring MD: Yudelka Chavez DO [employer] Kettle Tender: Kameron Centeno MD Symptoms: R07.9 CHEST PAIN Study Quality: Adequate ECG Rhythm: Sinus Conclusions: - Essentially normal study Findings Left Ventricle Normal left ventricular size, thickness, and systolic function. The visually estimated ejection fraction is between 55-60%. Spectral Doppler is indicative of a normal filling pattern. Right Ventricle Normal right ventricular cavity size and systolic function. Atria The left atrium is normal in size. Interatrial shunt cannot be excluded. The right atrium was not well visualized. Aortic Valve The aortic valve structure and function is likely normal. There is no aortic valve stenosis. There is no aortic valve regurgitation. Mitral Valve Likely normal mitral valve structure and function. There is trace mitral valve regurgitation. There is no mitral valve stenosis. Pulmonic Valve The pulmonic valve was not well visualized. Tricuspid Valve The tricuspid valve was not well visualized. Tricuspid regurgitation envelope is inadequate for calculation of right ventricular systolic pressure. Great Vessels All visible segments of the aorta are normal in size. The pulmonary artery was not well visualized. There is no dilatation of the ascending aorta measuring 3.30 cm. Venous The inferior vena cava is normal in size and collapses greater than 50% with inspiration. Pericardium/Pleural There is no evidence of pericardial effusion. Prior Study Comparison No prior study available for comparison. Measurements 2D Linear Measurements IVSd: 1.15 0.6-0.9/0.6-1.0 cm LVIDd: 4.22 3.9-5.3/4.2-5.9 cm LVIDd Index: 2.05 2.4-3.2/2.2-3.1 cm/m2 LVIDs: 2.78 2.0-3.6 cm LVPWd: 1.07 0.7-1.1 cm LA Diam: 3.60 2.7-3.8/3.0-4.0 cm LAIDs Index: 1.75 1.5-2.3 cm/m2 LV Mass: 199.62 67-162/88-224 g LV Mass Index: 96.90 43-95/49-115 g/m2 LVOT Diam: 2.00 3.0+(-)1.3 cm 2D Systolic Function EF 4C: 57.50 >55% EF 2C: 52.10 >55% EF BiP: 57.30 >55% Mitral Valve MV Pk E: 1.04 MV PK A: 0.84 MV Decel Time: 211.00 E/A: 1.20 E'Lateral: 10.70 E'Medial: 7.62 E/E' Med: 13.60 E/E' Lat: 9.70 PHT: 62.00 MVA PHT: 3.55 Decel Sampson: 4.93 Aortic Valve AoV Pk Emeka: 1.44 AoV Mn Emeka: 1.00 AoV VTI: 0.29 AoV Pk Grad: 8.00 Aov Mn Grad: 4.00 MAKEDA Cont.VTI: 2.38 LVOT LVOT Pk Emeka: 1.01 LVOT Mn Emeka: 0.71 LVOT VTI: 0.22 LVOT Pk Grad: 4.00 LVOT Mn Grad: 2.00 LVOT Diam: 2.00 LVOT Area: 3.14 Diastolic Function MV Pk E: 1.04 MV Pk A: 0.84 E/A: 1.20 E'Medial: 7.62 E/E' Med: 13.60 E' Laterial: 10.70 E/E' Lat: 9.70 Right Ventricle TAPSE (mm): 21.20 TVS' Emeka: 13.70 Tricuspid Valve RA Press: 15.00 Great Vessels Aorta Sinus of Valsalva: 2.75 2.0-3.[address] Ridge: 2.45 1.7-3.4 cm Ao Asc: 3.30 2.1-3.4 cm Updated in Other Vendor System with Status of Final Kameron Centeno MD electronically signed on 06/02/2024 12:01:17 PM with status of Final
--- NOTE | 2024-06-01 11:00 | PFT_ITS ---
Flows: FEV1: 73 % of predicted at 1.92 L FVC: 67 % of predicted at 2.20 L FEV1/FVC: 87 % Bronchodilator response: Absent Volumes: Total lung capacity: 68 % of predicted at 3.49 L Residual volume: 74 % of predicted at 1.20 L Slow vital capacity: 65 % of predicted at 2.29 L Expiratory reserve volume: 40 % of predicted at 0.37 L Diffusion capacity: Normal Impression: Moderate restrictive ventilatory defect with no bronchodilator response. Decreased expiratory reserve volume suggests extrathoracic restriction likely secondary to abdominal obesity. MTDD
[2024-06-01 15:54] VITALS: PULSE 86; RESP 16; O2SAT 98
== END ==
LOC: HO.CARD 09:49
PROVIDERS: PCP Internal Medicine; Visit Provider Family Medicine
DX: R07.9 Chest pain, unspecified (principal)
CPT/HCPCS: 93306; 94010; 94640; 94727; 94729

== ENCOUNTER → 2024-06-01 09:52 | Outpatient (BNV) | payer OTHER, SELFPAY | PROVIDERS: PCP Internal Medicine; Visit Provider Internal Medicine Cardiovascular Disease | DX: R07.9 Chest pain, unspecified (principal) | CPT/HCPCS: 93306 ==

== ENCOUNTER → 2024-06-01 11:00 | Outpatient (BNV) | payer OTHER, SELFPAY | PROVIDERS: PCP Internal Medicine; Visit Provider Internal Medicine Pulmonary Disease | DX: R06.09 Other forms of dyspnea (principal); R07.9 Chest pain, unspecified | CPT/HCPCS: 94060; 94727; 94729 ==

== ENCOUNTER 2024-06-15 14:34 | Outpatient (AMB) | payer OTHER, SELFPAY ==
--- NOTE | 2024-06-15 14:37 | A.OFFVIS_ITS ---
Vital Signs 06/15/24 14:38 Height 5 ft 5 in Weight 220 lb BMI 36.6 BP 132/80 Blood Pressure Location Rt brachial Position Sitting Pulse 120 H Pulse Source Doppler Pulse Oximetry (%) 97 Oxygen Delivery Method Room Air Intake Visit Reasons: moderate asthma Allergies Penicillins [PENICILLINS] Allergy (Intermediate, Verified 02/11/24 11:00) HIVES ibuprofen Allergy (Unknown, Verified 02/11/24 11:00) unknown penicillin V Allergy (Unknown, Verified 02/11/24 11:00) Unknown NSAIDS (Non-Steroidal Anti-Inflamma [NSAIDS (NON-STEROIDAL ANTI-INFLAMMA] Adverse Reaction (Mild, Verified 02/11/24 11:00) STOMACH UPSET HPI HPI moderate asthma: Details: 53-year-old lady, active 20+ pack-year smoker line referred for pulmonary evaluation. Patient has been using Flovent and albuterol MDI with suboptimal control of his symptoms. She is also complain of significant environmental allergies. She does have underlying eosinophilia she did have recent pulmonary function test in that showed restrictive ventilatory defect. She denies acute exacerbations. Patient denies family history of lung disease. [facility] Medical History (Updated 06/15/24 @ 14:56 by Chris Sharma MD) Lipoma of abdominal wall T2DM (type 2 diabetes mellitus) Arthritis of knee Restless leg syndrome Sleep apnea Gastritis High cholesterol Hypertension Fibromyalgia Arthritis Migraines Diabetes Asthma Surgical History Hx of fusion of cervical spine Hx of breast biopsy Hx of arthroscopic knee surgery Hx of cholecystectomy History of esophagogastroduodenoscopy (EGD) History of carpal tunnel release Hx of hysterectomy Family History Father No problems noted. Mother HTN (hypertension) Arthritis Diabetes Maternal Aunt Cancer of unknown origin Social History Alcohol intake: never Patient Tobacco Use Status: Current everyday Tobacco user Substance Use Type: Crack/Cocaine Current occupational status: unemployed Current occupation: right handed Review of Systems Const Denies daytime sleepiness, Denies excessive sweating, Denies fatigue, Denies fever(s), Denies lethargy, Denies malaise, Denies night sweats, Denies snoring and Denies weight loss Eyes Denies blurry vision and Denies itchy eyes ENT Denies nasal congestion, Denies post nasal drip, Denies sinus pain, Denies sinus pressure and Denies other ( Thrush) Card Denies chest pain, Denies pedal edema, Denies dyspnea, Reports dyspnea on exe rtion, Denies orthopnea and Denies paroxysmal nocturnal dyspnea Resp Denies cough, Denies hemoptysis, Denies excessive phlegm production, Denies dyspnea, Reports dyspnea on exertion, Denies snoring and Reports wheezing GI Denies abdominal pain and Denies heartburn Musc Denies myalgias, Denies arthralgias and Denies joint swelling Skin/Breast Denies rash Neuro Denies memory loss and Denies seizure-like activity Psych Denies abnormal sleep pattern, Denies anxiety and Denies memory loss Endo Denies excessive sweating, Denies fatigue and Denies heat intolerance Baldo/Lymph Denies easy bruising Aller/Immun Denies itchy eyes, Denies seasonal rhinorrhea and Reports wheezing Physical Exam Vital Signs: Last Vital Signs Pulse 120 H 06/15/24 14:38 BP 132/80 06/15/24 14:38 Pulse Ox 97 06/15/24 14:38 Oxygen Delivery Method Room Air 06/15/24 14:38 BMI result Body Mass Index 36.6 Const General: no acute distress and alert Nutritional Appearance: obese Orientation/consciousness: Other orientation findings ( oriented) HEENT Head: Yes atraumatic Eyes General: appearance normal, both eyes and all related structures Sclerae: sclerae normal EOM: EOMs intact bilaterally Neck Neck: Yes supple Lymphatic: no lymphadenopathy noted Resp Effort & Inspection: normal respiratory effort and no use of accessory muscles Auscultation: clear to auscultation bilaterally Cardio Rate: regular rate Rhythm: regular rhythm Heart sounds: no gallops, no murmurs and no rubs Skin General skin exam: other ( warm) Extrem General: No clubbing, No cyanosis and No edema Assessment & Plan Assessment & Plan (1) Asthma: Code(s): J45.909 - Unspecified asthma, uncomplicated Category: Medical Plan: underlying at least moderate persistent asthma suboptimally controlled on Flovent, will switch to Symbicort. Continue albuterol MDI. (2) Environmental allergies: Code(s): Z91.09 - Other allergy status, other than to drugs and biological substances Category: Medical Plan: Underlying eosinophilia noted on CBC. Will obtain RAST panel and IgE level for further evaluation. Orders: Orders Resp Allergy Profile Region I Today Z91.09 - Other allergy status, other than to drugs and biological substances Medications: New budesonide-formoterol 160-4.5 mcg/actuation (Symbicort) 2 puffs inhalation BID 10.2 grams 6RF Coding Level of Care Code New Pt Level 4 (52535) Diagnoses Asthma J45.909 Environmental allergies Z91.09
[2024-06-15 14:38] VITALS: BP 132/80; PULSE 120; O2SAT 97; BMI 36.6
== END 2024-06-15 14:56 | disposition home or self-care (01) ==
PROVIDERS: PCP Internal Medicine; Visit Provider Internal Medicine Pulmonary Disease
DX: J45.40 Moderate persistent asthma, uncomplicated (principal)
CPT/HCPCS: 99214

== ENCOUNTER 2024-06-15 14:34 | Outpatient (REF) | payer OTHER, SELFPAY ==
[2024-06-19 18:58] LABS: Class Alternaria alternata 0; Class Aspergillus fumigatus 0; Class Bermuda Grass 0; Class Birch 0; Class Cat Dander 0; Class Cladosporium herbarum 0; Class Cockroach 2; Class Common Ragweed 0; Class Cottonwood 0; Class Derm. pterony 0/1; Class Dermatophagoides farinae 0; Class Dog Dander 0; Class Elm 0; Class Maple Box Elder 0; Class Mountain Cedar 0/1; Class Mouse Urine Protein 0; Class Mugwort 0; Class Oak 0/1; Class Penicillium crysogenum 0; Class Rough Pigweed 0; Class Sheep Sorrel 0; Class Sycamore 0; Class Timothy Grass 0; Class Walnut Tree 0; Class White Ash 0; Class White Mulberry 0; D001 IgE D pteronyssinus 0.11 kU/L; D002 - IgE D farinae <0.10 kU/L; E001 - IgE Cat Dander <0.10 kU/L; E005 - IgE Dog Dander <0.10 kU/L; E072-IgE Mouse Urine <0.10 kU/L; G002 IgE Bermuda Grass <0.10 kU/L; G006 - IgE Timothy Grass <0.10 kU/L; I006-IgE Cockroach, German 1.88 kU/L; Immunoglobulin E 1411 kU/L (<OR=114); M001 IgE Penicillium chrysogen <0.10 kU/L; M002 - IgE Cladosporium herbar <0.10 kU/L; M003 - IgE Aspergillus fumigat <0.10 kU/L; M006 - IgE Alternaria alternat <0.10 kU/L; T001 IgE Maple/Box Elder <0.10 kU/L; T003 IgE Common Silver Birch <0.10 kU/L; T006 - IgE Cedar, Mountain 0.11 kU/L; T007 - IgE Oak, White 0.14 kU/L; T008 IgE Elm, American <0.10 kU/L; T010 - IgE Walnut <0.10 kU/L; T011 - IgE Maple Leaf Sycamore <0.10 kU/L; T014 - IgE Cottonwood <0.10 kU/L; T015 - IgE Ash, White <0.10 kU/L; T070 - IgE White Mulberry <0.10 kU/L; W001 - IgE Ragweed, Short <0.10 kU/L; W006 - IgE Mugwort <0.10 kU/L; W014 IgE Pigweed, Common <0.10 kU/L; W018 IgE Sheep Sorrel <0.10 kU/L
== END 2024-06-15 14:35 | disposition home or self-care (01) ==
LOC: HO.LAB 14:34
PROVIDERS: PCP Internal Medicine; Visit Provider Internal Medicine Pulmonary Disease
DX: Z91.09 Other allergy status, other than to drugs and biological substances (principal); J45.909 Unspecified asthma, uncomplicated
CPT/HCPCS: 36415; 82785; 86003; 99212

== ENCOUNTER 2024-07-06 10:33 | Outpatient (AMB) | payer OTHER, SELFPAY ==
[2024-07-06 10:44] VITALS: BP 138/74; PULSE 102; O2SAT 98; BMI 36.9
--- NOTE | 2024-07-06 10:44 | MHC.OFFVIS ---
Vital Signs 07/06/24 10:44 Height 5 ft 5 in Weight 222 lb BMI 36.9 BP 138/74 Blood Pressure Location Lt brachial Position Sitting Pulse 102 H Pulse Source Doppler Pulse Oximetry (%) 98 Oxygen Delivery Method Room Air Intake Visit Reasons: Asthma Allergies Penicillins [PENICILLINS] Allergy (Intermediate, Verified 02/11/24 11:00) HIVES ibuprofen Allergy (Unknown, Verified 02/11/24 11:00) unknown penicillin V Allergy (Unknown, Verified 02/11/24 11:00) Unknown NSAIDS (Non-Steroidal Anti-Inflamma [NSAIDS (NON-STEROIDAL ANTI-INFLAMMA] Adverse Reaction (Mild, Verified 02/11/24 11:00) STOMACH UPSET HPI HPI Asthma: Details: 53-year-old lady, active 20+ pack-year smoker followed for asthma/COPD overlap syndrome home and environmental allergies. After the last office visit patient has been switched to Symbicort from Flovent, however she was not able to receive it and continued on Flovent with suboptimal control of his symptoms. She did complete her pulmonary function testing and immunologic workup. She denies acute exacerbations. [facility] Medical History (Updated 06/15/24 @ 14:56 by Chris Sharma MD) Lipoma of abdominal wall T2DM (type 2 diabetes mellitus) Arthritis of knee Restless leg syndrome Sleep apnea Gastritis High cholesterol Hypertension Fibromyalgia Arthritis Migraines Diabetes Asthma Surgical History Hx of fusion of cervical spine Hx of breast biopsy Hx of arthroscopic knee surgery Hx of cholecystectomy History of esophagogastroduodenoscopy (EGD) History of carpal tunnel release Hx of hysterectomy Family History Father No problems noted. Mother HTN (hypertension) Arthritis Diabetes Maternal Aunt Cancer of unknown origin Social History Alcohol intake: never Patient Tobacco Use Status: Current everyday Tobacco user Substance Use Type: Crack/Cocaine Current occupational status: unemployed Current occupation: right handed Review of Systems Const Denies daytime sleepiness, Denies excessive sweating, Denies fatigue, Denies fever(s), Denies lethargy, Denies malaise, Denies night sweats, Denies snoring and Denies weight loss Eyes Denies blurry vision and Denies itchy eyes ENT Denies nasal congestion, Denies post nasal drip, Denies sinus pain, Denies sinus pressure and Denies other ( Thrush) Card Denies chest pain, Denies pedal edema, Denies dyspnea, Denies orthopnea and Denies paroxysmal nocturnal dyspnea Resp Denies cough, Denies hemoptysis, Denies excessive phlegm production, Denies dyspnea, Denies snoring and Reports wheezing GI Denies abdominal pain and Denies heartburn Musc Denies myalgias, Denies arthralgias and Denies joint swelling Skin/Breast Denies rash Neuro Denies memory loss and Denies seizure-like activity Psych Denies abnormal sleep pattern, Denies anxiety and Denies memory loss Endo Denies excessive sweating, Denies fatigue and Denies heat intolerance Baldo/Lymph Denies easy bruising Aller/Immun Denies itchy eyes, Denies seasonal rhinorrhea and Reports wheezing Physical Exam Vital Signs: Last Vital Signs Pulse 102 H 07/06/24 10:44 BP 138/74 07/06/24 10:44 Pulse Ox 98 07/06/24 10:44 Oxygen Delivery Method Room Air 07/06/24 10:44 BMI result Body Mass Index 36.9 Const General: no acute distress and alert Nutritional Appearance: not obese Orientation/consciousness: Other orientation findings ( oriented) HEENT Head: Yes atraumatic Eyes General: appearance normal, both eyes and all related structures Sclerae: sclerae normal EOM: EOMs intact bilaterally Neck Neck: Yes supple Lymphatic: no lymphadenopathy noted Resp Effort & Inspection: normal respiratory effort and no use of accessory muscles Auscultation: clear to auscultation bilaterally Cardio Rate: regular rate Rhythm: regular rhythm Heart sounds: no gallops, no murmurs and no rubs Skin General skin exam: other ( warm) Extrem General: No clubbing, No cyanosis and No edema Assessment & Plan Assessment & Plan (1) Asthma: Code(s): J45.909 - Unspecified asthma, uncomplicated Category: Medical Plan: Suboptimal control on Flovent, to receive Symbicort, will switch to AirDuo. Continue with albuterol MDI. If fails to improve, will consider immunologic therapy. (2) Environmental allergies: Code(s): Z91.09 - Other allergy status, other than to drugs and biological substances Category: Medical Plan: Results of immunologic workup reviewed. Patient does have underlying significant allergic component to his symptoms, if fails to be controlled with inhaled corticosteroid/long-acting beta agonist combination, will consider Xolair. Medications: New fluticasone propion-salmeterol 232-14 mcg/actuation (AirDuo RespiClick) 1 inh inhalation BID 1 ea 6RF Discontinued budesonide-formoterol 160-4.5 mcg/actuation (Symbicort) Discontinued Reason: Doctor's Order 2 puffs inhalation BID 10.2 grams 6RF Coding Level of Care Code Est Pt Level 4 (61700) Diagnoses Asthma J45.909 Environmental allergies Z91.09
== END 2024-07-06 10:52 | disposition home or self-care (01) ==
PROVIDERS: PCP Internal Medicine; Visit Provider Internal Medicine Pulmonary Disease
DX: J45.909 Unspecified asthma, uncomplicated (principal); Z91.09 Other allergy status, other than to drugs and biological substances
CPT/HCPCS: 99214

== ENCOUNTER → 2024-07-06 10:33 | Outpatient (BNVA) | payer OTHER, SELFPAY | PROVIDERS: PCP Internal Medicine; Visit Provider Internal Medicine Pulmonary Disease | DX: J45.909 Unspecified asthma, uncomplicated (principal); Z91.09 Other allergy status, other than to drugs and biological substances | CPT/HCPCS: 99212 ==

== ENCOUNTER 2024-09-21 10:52 | Outpatient (AMB) | payer OTHER, SELFPAY ==
[2024-09-21 10:54] VITALS: BP 106/50; PULSE 90; BMI 37.2
--- NOTE | 2024-09-21 10:54 | MHC.OFFVIS ---
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 Tube Blower Required: No Accompanied by: Spouse Allergies Penicillins [PENICILLINS] Allergy (Intermediate, Verified 02/11/24 11:00) HIVES ibuprofen Allergy (Unknown, Verified 02/11/24 11:00) unknown penicillin V Allergy (Unknown, Verified 02/11/24 11:00) Unknown NSAIDS (Non-Steroidal Anti-Inflamma [NSAIDS (NON-STEROIDAL ANTI-INFLAMMA] Adverse Reaction (Mild, Verified 02/11/24 11:00) STOMACH UPSET Medication List - Last Reconciled 09/21/24 by Gopal Acevedo MD albuterol sulfate 90 mcg/actuation 2 puffs PO Q4-6H PRN aspirin 81 mg PO DAILY atorvastatin 80 mg PO DAILY blood sugar diagnostic (FreeStyle Lite Strips) As directed blood-glucose meter As directed bupropion HCl SR 100 mg PO DAILY clonidine HCl 0.1 mg PO BID-TID PRN doxepin 100 mg PO BEDTIME fluticasone propion-salmeterol 232-14 mcg/actuation (AirDuo RespiClick) 1 inh inhalation BID gabapentin 1 tab PO TID insulin aspart (niacinamide) 100 unit/mL (Fiasp U-100 Insulin) subcut insulin degludec (Tresiba FlexTouch U-100 insulin) 20 units subcut BEDTIME insulin glargine (Lantus Solostar U-100 Insulin) 34 units subcut Q12H insulin pump cart,cont inf,BT (Omnipod Dash Pods (Gen 4) subcutaneous cartridge) As directed lancets As directed lancets (TRUEplus Lancets) As directed lisinopril 20 mg PO DAILY metformin ER 1,000 mg PO BID mirtazapine 30 mg PO BEDTIME pen needle, diabetic As directed quetiapine 300 mg PO BEDTIME ropinirole 1 tab PO DAILY tirzepatide (Mounjaro) subcut HPI Comments Details: Jeny is here for consultation regarding chest pains. Patient herself does not have any known cardiac issues including coronary disease or myocardial infarction or cardiomyopathy. Many comorbidities listed. Also history of cocaine use but nothing recently. She states that she gets pains somewhat randomly. With and without exertion. Can happen essentially any time. She points to the substernal area. She is here for further evaluation of that. [facility] Medical History (Updated 09/21/24 @ 11:32 by Gopal Acevedo MD) Lipoma of abdominal wall T2DM (type 2 diabetes mellitus) Arthritis of knee Restless leg syndrome Sleep apnea Gastritis High cholesterol Hypertension Fibromyalgia Arthritis Migraines Diabetes Asthma Surgical History Hx of fusion of cervical spine Hx of breast biopsy Hx of arthroscopic knee surgery Hx of cholecystectomy History of esophagogastroduodenoscopy (EGD) History of carpal tunnel release Hx of hysterectomy Family History Father No problems noted. Mother HTN (hypertension) Arthritis Diabetes Maternal Aunt Cancer of unknown origin Social History Alcohol intake: never Patient Tobacco Use Status: Current everyday Tobacco user Substance Use Type: Crack/Cocaine Current occupational status: unemployed Current occupation: right handed Review of Systems Const Denies chills, Denies daytime sleepiness, Denies fatigue, Denies fever(s), Denies poor appetite, Denies snoring, Denies stops breathing during sleep, Denies weakness, Denies weight gain and Denies weight loss Eyes Denies loss of vision ENT Denies dizziness and Denies hearing loss Card Reports chest pain, Reports irregular heart rhythm, Denies claudication, Denies leg edema, Denies lightheadedness, Denies palpitations, Reports dyspnea on exertion and Denies orthopnea Resp Denies cough, Denies excessive phlegm production, Reports dyspnea on exertion, Denies snoring and Denies wheezing GI Denies abdominal pain, Denies hematochezia, Denies change in bowel habits, Denies nausea and Denies vomiting Denies urinary frequency and Denies dysuria Musc Denies arthralgias, Denies muscle weakness, Denies numbness and Denies other Skin/Breast Denies nail changes and Denies rash Neuro Denies Abnormal speech present, Denies dizziness, Denies loss of vision, Denies memory loss, Denies numbness and Denies weakness Psych Denies depression and Denies memory loss Endo Denies fatigue and Denies palpitations Baldo/Lymph Denies easy bruising Aller/Immun Denies wheezing Physical Exam Vital Signs: Last Vital Signs Pulse 90 09/21/24 10:54 BP 106/50 L 09/21/24 10:54 BMI result Body Mass Index 37.2 Const General: comfortable and no acute distress Orientation/consciousness: patient oriented x3 HEENT Other: Unremarkable Head: Yes normal to inspection Neck Neck: Yes normal visual inspection Chest Chest palpation & inspection: normal inspection of the chest Resp Auscultation: clear to auscultation bilaterally Cardio Palpation: normal PMI Heart sounds: S1 normal heart sound present, S2 normal heart sound present, no gallops, no murmurs and no rubs GI Palpation (GI): Soft to palpation Back/Spine/Pelvis Other: unremarkable Skin General skin exam: no rashes or lesions noted Neuro General: patient oriented x3 Speech: No Abnormal speech present Extrem General: Yes normal to inspection Psych Mental Status: mental status grossly normal Assessment & Plan Assessment & Plan (1) Precordial chest pain: Code(s): R07.2 - Precordial pain Category: Medical (2) T2DM (type 2 diabetes mellitus): Code(s): E11.9 - Type 2 diabetes mellitus without complications Category: Medical Qualifiers: Diabetes mellitus senior care insulin use: 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 Normal diastolic filling pattern. No significant valvular findings. In a prior stress test from 2020, she was able to exercise only for 3 minutes and 44 seconds. Had developed sharp left-sided chest pain but thought to be not clearly anginal. Overall, numerous cardiovascular risk factors and atypical sounding chest pain. We will plan on getting a coronary CTA for further evaluation. Discussed with patient about this and she is agreeable. Follow-up after the above. Orders: Orders CT Cardiac Coronary Angio Today I25.10 - Atherosclerotic heart disease of [place] coronary artery without angina pectoris Basic Metabolic Panel Today I10 - Essential (primary) hypertension Coding Level of Care Code New Pt Level 4 (36919) Complex EM visit Add On G2211 Diagnoses Precordial chest pain R07.2 T2DM (type 2 diabetes mellitus) E11.9 Diabetes mellitus senior care insulin use: with senior care use Hypertension I10 Hyperlipidemia, unspecified E78.5
--- OUTSIDE RECORDS SUMMARY | 2024-09-21 12:55 | XMS_ITS | Encounter Summary ---
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 Name Role Phone Brenda Tovar MD Primary Care Provide r Eugene Jarvis Unavailable Unavailable Reason for Visit * Reason Comments Med Refill Encounter Details Date Type Department Care Team ([facility] st Contact Info) Description 01/29/2023 Refill [facility] [address], [place] [id number] NameRivera MD [address] [place] [address] Hypertension, unspecified type Social History Tobacco Use Types Packs/Day Years Used Date Smoking Tobacco: Every Day Cigarettes Passive Smoke Exposure: Current Smokeless Tobacco: Never Comments Unknown Sex and Gender Information Value Date Recorded Sex Assigned at Female 05/25/2022 10:35 AM EDT Legal Sex Female 10:35 AM EDT Gender Identity Female 05/25/2022 10:35 AM EDT Sexual Orientation Choose not to disclose 2021 10:35 AM EDT COVID-19 Exposure Response Date Recorded In the last 10 days, have yo u been in contact with someone who was confirmed or suspected to have Coronavirus/COVID-19? No / Unsure 01/01/2023 9:58 AM EDT documented as of this encounter Plan of Treatment Not on file documented as of this encounter Visit Diagnoses Diagnosis Hypertension, unspecified type documented in this encounter Additional Health Concerns Assessment Noted Time PHQ-9 Depression Total Score: 20 023 11:23 AM EDT documented as of this encounter Care Teams Marine Railway Operator Relationship Specialty Start Date End Date Brenda Tovar MD [address] [place] [address] PCP - General Family Medicine 02/16/19 Eugene Jarvis FNP [address] [place] [address] Nurse Practitioner Family Medicine 06/21/23 documented as of this encounter
--- OUTSIDE RECORDS SUMMARY | 2024-09-21 12:55 | XMS_ITS | Clinical Summary ---
Author Organization [employer] Address [address] [place] [address] Care Team Providers Care Gamb Cutter Name Role Phone Brenda Tovar MD Primary Care Provide r Eugene Jarvis Unavailable Unavailable Allergies Active Allergy Reactions Criticality Noted Date Comments Ibuprofen 02/16/2019 Other reaction(s): Gastritis Penicillin G 02/16/2019 Other reaction(s): Hives / Skin Rash Medications * This document contains information received from the source organization and may not represent a complete record from that organization. benzonatate (Tessalon Perles) 100 MG capsule take 1 capsule by oral route 3 times every day as needed for cough 020 Active Clotrimazole 2 % vaginal cream use in the vaginal area BID till rash clears 021 Active Hydrocortisone Acetate 1 % cream Apply topically. 2 times every day a thin layer to the affected area 020 Active insulin aspart (NovoLOG FLEXPEN) 100 UNIT/ML pen 7 U three times a day with meals 022 Active insulin glargine (Lantus SoloStar) 100 UNIT/ML pen inject 34 units every 12 hrs 020 Active Fiasp 100 UNIT/ML solution USE WITH INSULIN PUMP. MAX 45 UNITS PER DAY 023 Active Insulin Disposable Pump (Omnipod DASH Pods, Gen 4,) misc CHANGE EVERY 3 DAYS E 11.9 023 Active metFORMIN XR (Glucophage-XR) 500 MG 24 hr tablet TAKE 2 TABLETS BY MOUTH TWICE DAILY IN THE MORNING AND EVENING 023 Active DULoxetine (Cymbalta) [address] capsuleIndicati ons:Severe recurrent major depression with psychotic features (CMS/HCC) TAKE 1 CAPSULE BY MOUTH TWICE DAILY IN THE MORNING AND AT BEDTIME 180 capsule 1 023 Active hydrOXYzine HCl (Atarax) 25 MG tabletIndicatio ns:Severe recurrent major depression with psychotic features (CMS/HCC) TAKE 1 TO 2 TABLETS BY MOUTH EVERY 6 HOURS NEEDED FOR ANXIETY 100 tablet 3 023 Active mirtazapine (Remeron) 30 MG tabletIndicatio ns:Severe recurrent major depression with psychotic features (CMS/HCC) TAKE 1 TABLET BY MOUTH AT BEDTIME 90 tablet 1 023 Active cloNIDine (Catapres) 0.1 MG tabletIndicatio ns:Severe recurrent major depressive disorder with psychotic features (CMS/HCC) TAKE 1 TABLET BY MOUTH THREE TIMES DAILY IN THE MORNING, EVENING, AND BEDTIME 270 tablet 1 023 Active Easy Touch Lancets 33G/Twist misc TEST BLOOD SUGAR 3 TIMES A DAY 100 each 5 023 Active FREESTYLE LITE test strip TEST BLOOD SUGAR 3 TIMES A DAY 100 strip 023 Active docusate sodium (Colace) 100 MG capsuleIndicati ons:Constipatio n, unspecified constipation type TAKE 1 CAPSULE BY MOUTH TWICE DAILY 60 capsule 2 023 Active Blood Pressure Monitor kitIndications: Primary hypertension Use as directed 3x/week 1 kit 024 Active methocarbamol (Robaxin) 750 MG tabletIndicatio ns:Chronic left shoulder pain,Neck pain Take 1 tablet (750 mg) by mouth 4 times daily for 10 days. 40 tablet 024 Active budesonide-form oterol (Symbicort) 160-4.5 MCG/ACT inhalerIndicati ons:Moderate persistent asthma without complication Inhale 2 puffs in the morning and at bedtime. Rinse mouth with water after use to reduce aftertaste and incidence of candidiasis. Do not swallow. 1 each 11 024 2024 Active triamcinolone (Kenalog) 0.1 % creamIndication s:Psoriasis Apply topically if needed in the morning and at bedtime (pain and swelling). 30 g 2 Active Continuous Glucose Sensor (Dexcom G7 Sensor) [facility] [place] TO MONITOR BLOOD GLUCOSE CONTINUOUSLY, CHANGE EVERY 10 DAYS, E11.65 Active doxepin (SINEquan) 100 MG capsule TAKE 1 CAPSULE BY MOUTH EVERYDAY AT BEDTIME Active Jardiance 25 MG Take 25 mg by mouth in the morning. Active Gvoke HypoPen 2-Pack 0.5 MG/0.1ML injection TO BE INJECTED BY CAREGIVER SUBCUTANEOUSLY IF PT IS UNCONSCIOUS DUE TO LOW BLOOD SUGAR. SEEK MEDICAL CARE. IF PATIENT DOES NOT RESPOND IN 15 MINUTES REPEAT DOSE. Active cetirizine (ZyrTEC) 10 MG tablet Take 1 tablet (10 mg) by mouth Once per day. 30 tablet 11 024 2024 Active fluticasone (Flonase) 50 MCG/ACT nasal spray Administer 2 sprays into each nostril Once per day. Shake gently. Before first use, prime pump. After use, clean tip and replace cap. 16 g 11 024 2024 Active Multiple Vitamins-Minera ls (CertaVite/Anti oxidants) tablet Take 1 tablet by mouth Once per day. 90 tablet 3 Active betamethasone, augmented, (Diprolene) 0.05 % ointmentIndicat ions:Psoriasifo rm dermatitis Apply topically 2 times daily. Not more than 4 weeks 45 g 1 Active aspirin (Aspirin Low Dose) 81 MG EC tabletIndicatio ns:Primary hypertension TAKE 1 TABLET BY MOUTH EVERY MORNING 90 tablet 3 024 Active Ventolin HFA 108 (90 Base) MCG/ACT inhalerIndicati ons:Moderate persistent asthma without complication INHALE 2 PUFFS BY MOUTH EVERY 4 HOURS NEEDED FOR WHEEZING OR SHORTNESS OF BREATH 18 g 1 024 Active doxepin (SINEquan) 150 MG capsuleIndicati ons:Mood disorder (CMS/HCC) Take 1 capsule (150 mg) by mouth at bedtime. 90 capsule 024 Active lisinopril 20 MG tabletIndicatio ns:Primary hypertension TAKE 1 TABLET BY MOUTH EVERY MORNING 90 tablet 3 024 Active omeprazole (PriLOSEC) [address] capsuleIndicati ons:Heartburn TAKE 1 CAPSULE BY MOUTH EVERY MORNING BEFORE BREAKFAST 90 capsule 3 Active atorvastatin (Lipitor) 80 MG tabletIndicatio ns:Hypertension , unspecified type TAKE 1 TABLET BY MOUTH EVERY MORNING 90 tablet 1 Active Ozempic, 1 MG/DOSE, 4 MG/3ML solution pen-injector See Instructions, Inject 1 MG SUBCUTANEOUSLY EVERY 7 DAYS IN THE ABDOMEN, THIGHS OR UPPER ARM. ROTATE INJECTION SITES., # 3 mL, 5 Refills, Maintenance, 01/21/24 10:24:00 EDT, [facility], 165, cm, 08/23/23 13:15:00 EST, Height, 84.3... Active Ozempic, 2 MG/DOSE, 8 MG/3ML solution pen-injector Inject 2 mg under the skin every 7 (seven) days. Active clonazePAM (KlonoPIN) 1 MG tablet Take 1 tablet by mouth 2 times daily. Active Easy Touch Pen [place] 31G X 8 MM [facility] [place] USE DIRECTED TO INJECT INSULIN FOUR TIMES DAILY Active perphenazine 4 MG tablet Take 1 tablet by mouth 2 times daily. Active rOPINIRole (Requip) 0.25 MG tabletIndicatio ns:Mood disorder (CMS/HCC) TAKE 1 TABLET BY MOUTH AT BEDTIME 90 tablet Active buPROPion SR (Wellbutrin SR) 100 MG 12 hr tabletIndicatio ns:Mood disorder (CMS/HCC) TAKE 1 TABLET BY MOUTH EVERY DAY 90 tablet Active QUEtiapine (SEROquel) 300 MG tabletIndicatio ns:Mood disorder (CMS/HCC) TAKE 2 TABLETS BY MOUTH EVERY DAY AT BEDTIME 180 tablet Active Mounjaro 5 MG/0.5ML solution auto-injectorIn dications:Type 2 diabetes mellitus with hyperglycemia, with long-term current use of insulin (CMS/HCC) INJECT ONE PEN (=5MG) SUBCUTANEOUSLY ONCE A WEEK DIRECTED 2 mL Active gabapentin (Neurontin) 800 MG tabletIndicatio ns:Hypertension , unspecified type TAKE 1 TABLET BY MOUTH THREE TIMES DAILY IN THE MORNING, EVENING, AND BEDTIME 90 tablet 025 Active rOPINIRole (Requip) 0.25 MG tabletIndicatio ns:Mood disorder (CMS/HCC) TAKE 1 TABLET BY MOUTH AT BEDTIME 90 tablet 024 2024 Discontinued buPROPion SR (Wellbutrin SR) 100 MG 12 hr tabletIndicatio ns:Mood disorder (CMS/HCC) Take 1 tablet (100 mg) by mouth Once daily. Do not crush, chew, or split. 90 tablet 024 2024 Discontinued QUEtiapine (SEROquel) 300 MG tabletIndicatio ns:Mood disorder (CMS/HCC) Take 2 tablets (600 mg) by mouth at bedtime. 180 tablet 024 2024 Discontinued gabapentin (Neurontin) 800 MG tabletIndicatio ns:Hypertension , unspecified type TAKE 1 TABLET BY MOUTH THREE TIMES DAILY IN THE MORNING, EVENING, AND BEDTIME 90 tablet 024 2024 Discontinued(R eorder (will not trigger notification to Pharmacy)) Mounjaro 5 MG/0.5ML solution auto-injectorIn dications:Type 2 diabetes mellitus with hyperglycemia, with long-term current use of insulin ([facility]) INJECT ONE PEN (=5MG) SUBCUTANEOUSLY ONCE A WEEK DIRECTED 2 mL 025 2024 Discontinued Active Problems Problem Noted Date Diagnosed Date Acute pain of both knees 03/21/2024 Right hand pain 03/21/2024 Right elbow pain 03/21/2024 Psoriasis 03/03/2024 Lipoma of right lower extremity 03/03/2024 Palate abnormality 12/22/2023 Chronic left shoulder pain 12/22/2023 Assessment & Plan (12/22/2023 2:31 PM EDT): XRAY and orthopedics referral printed for patient Weight gain 12/02/2023 Moderate persistent asthma without complication 10/27/2023 Assessment & Plan (03/03/2024 12:08 PM EDT): - Aerobic exercise to reduce BP. Initial goal of 30 min walk 3-5x/week. Increase as tolerated. - low-sodium diet (goal: <2g/day) and heart healthy diet such as DASH to reduce BP and prevent ASCVD. - Home BP monitoring 1-2 x day with goal of <140/90. - Seek immediate medical attention for chest pain, palpitations, SOB, syncope, or sudden changes in mental status. - Do not change or discontinue current prescriptions without first consulting health care provider Assessment & Plan (10/27/2023 3:06 PM EDT): Patient educated to avoid asthma triggers Albuterol inhaler prescribed Asmanex prescribed today RTC 8 weeks Pain in both feet 08/02/2023 MALLIKA (obstructive sleep apnea) 08/02/2023 Assessment & Plan (08/02/2023 3:42 PM EST): Sleep studies ordered today BMI 35.0-35.9,adult 08/02/2023 Tobacco dependence 05/28/2023 Generalized abdominal pain 05/21/2023 Assessment & Plan (05/21/2023 2:29 PM EDT): Continue to follow with GI Chronic bilateral low back pain 05/21/2023 Upper abdominal pain 02/26/2023 Chronic constipation 02/26/2023 Assessment & Plan (02/26/2023 1:28 PM EDT): hiv counselor about increase fiber and water on her diet GI referral Unstable gait 02/26/2023 Assessment & Plan (02/26/2023 11:15 AM EDT): Rolator walker will be prescribed for patient Tardive dyskinesia 02/08/2023 Assessment & Plan (06/21/2023 10:39 AM EST): Symptoms have improved somewhat, ?r/t discontinuation of Benztropine? F/U with Neurologist at [facility] as scheduled. Do not F/U with Neurologist at [facility]. ED as needed. Assessment & Plan (05/27/2023 2:47 PM EDT): Unfortunately seems to be progressing. Pt understands the etiology of this, and the probability that it will be chronic. Per [facility], advised to avoid anticholinergics. She will stop Benztropine 2 mg BID. F/U with Neurologist at [facility] as scheduled. Do not F/U with Neurologist at [facility]. ED as needed. Assessment & Plan (05/21/2023 2:29 PM EDT): Do not miss neurology appointment Assessment & Plan (04/27/2023 11:52 AM EDT): Condition may be progressing. Pt understands the etiology of this, and the probability that it will be chronic. She is accepting of this, and has been unwilling to stop antipsychotic. See above for plan: Outpatient BH referral, Neurology referral, ED as needed. Assessment & Plan (03/23/2023 2:26 PM EDT): Condition may be progressing. Pt understands the etiology of this, and the probability that it will be chronic. She is accepting of this, and has been unwilling to stop antipsychotic. See above for plan: Outpatient BH referral, Neurology referral, ED as needed. Assessment & Plan (03/04/2023 1:49 PM EDT): Pt understands the etiology of this condition, and the probability that it will be chronic. She is accepting of this. See above for plan: Outpatient BH referral, Neurology referral, ED as needed. Assessment & Plan (02/26/2023 11:16 AM EDT): STAT referral to neurology done today I will prescribe for patient Marty walker I inform patient she can not drive at this time Assessment & Plan (02/08/2023 12:22 PM EDT): Starting Valbenazine 40 mg daily. Periodontal disease 01/01/2023 Xerostomia 01/01/2023 Blood in the stool 11/11/2022 Assessment & Plan (11/11/2022 10:09 AM EDT): I referred patient to GI Type 2 diabetes mellitus wit h hyperglycemia, with long-term current use of insulin 11/11/2022 Assessment & Plan (07/04/2024 5:08 PM EST): Diabetes is: not controlled - Lab Results Component Value Date HGBA1C 10.6 06/30/2024 HGBA1C 10.1 (A) 04/28/2024 HGBA1C 9.4 (A) 03/03/2024 - Lab Results Component Value Date MICROALBUR 29.0 03/28/2024 CREATININE 0.81 04/28/2024 -Changes: I will discontinue ozempic and start her on monjouru - Diabetic eye exam:up to date - Diabetic foot exam:referral done - Continue lifestyle modifications - Continue current medications - Follow up: 3 months Assessment & Plan (03/03/2024 12:09 PM EDT): Diabetes is: not controlled - Lab Results Component Value Date HGBA1C 9.4 (A) 03/03/2024 HGBA1C 9.2 (A) 12/02/2023 HGBA1C 8.0 (A) 08/02/2023 - Lab Results Component Value Date MICROALBUR 0.5 02/15/2020 MICROALBUR 0.5 02/15/2020 CREATININE 0.84 03/05/2023 -Changes: continue to follow with endocrinology - Diabetic eye exam: up to date - Diabetic foot exam: up to date - Continue lifestyle modifications - Continue current medications - Follow up: 3 months Assessment & Plan (12/22/2023 2:31 PM EDT): Continue to follow with endocrinology Assessment & Plan (12/02/2023 11:09 AM EDT): Diabetes is: not controlled - Lab Results Component Value Date HGBA1C 9.2 (A) 12/02/2023 HGBA1C 8.0 (A) 08/02/2023 HGBA1C 6.7 (A) 02/26/2023 - Lab Results Component Value Date MICROALBUR 0.5 02/15/2020 MICROALBUR 0.5 02/15/2020 CREATININE 0.84 03/05/2023 -Changes: extensive discussion about diabetic diet done today - Diabetic eye exam:up to date - Diabetic foot exam:up to date - Continue lifestyle modifications - Continue current medications - Follow up: with endocrinology as scheduled Assessment & Plan (10/27/2023 3:08 PM EDT): C/w same meds and interventions I will follow her up in 8 weeks Assessment & Plan (05/21/2023 2:30 PM EDT): Lab Results Component Value Date HGBA1C 6.7 (A) 02/26/2023 HGBA1C 7.7 (A) 11/11/2022 - Lab Results Component Value Date MICROALBUR 0.5 02/15/2020 MICROALBUR 0.5 02/15/2020 CREATININE 0.84 03/05/2023 - Diabetic eye exam:up to date - Diabetic foot exam:up to date - Continue lifestyle modifications - Continue current medications - Assessment & Plan (02/26/2023 1:29 PM EDT): Lab Results Component Value Date HGBA1C 6.7 (A) 02/26/2023 HGBA1C 7.7 (A) 11/11/2022 - Lab Results Component Value Date MICROALBUR 0.5 02/15/2020 MICROALBUR 0.5 02/15/2020 CREATININE 0.99 02/15/2023 - Continue lifestyle modifications - Continue current medications -continue to follow with endocrinology Assessment & Plan (11/11/2022 10:09 AM EDT): A1c today 7.7- it has improve a lot Lab Results Component Value Date MICROALBUR 0.5 02/15/2020 MICROALBUR 0.5 02/15/2020 CREATININE 0.83 10/27/2022 - Diabetic eye exam: up to date - Diabetic foot exam: pending next appointment - Continue lifestyle modifications - Continue current medications Severe recurrent major depression with psychotic features 07/02/2022 Assessment & Plan (08/02/2023 12:05 PM EST): She is doing much better, and has started with new psychiatrist so we will not schedule F/U with [facility]. She agrees with the plan. Assessment & Plan (06/21/2023 10:38 AM EST): Mood is better, still not sleeping well, admits she is taking 2 tabs of Seroquel 100 mg without worsened tardive dyskinesia. Will now increase to Seroquel 200 mg at bedtime. Continue her other psychiatric medications: Clonidine 0.1 mg TID, Duloxetine 60 mg BID, Gabapentin 800 mg TID, and Remeron 30 mg at bedtime. She has started with therapist at [facility], and they are awaiting copies of medical records in order to also refer for med mgt. On 04/27/2023 provider informed pt that I would be retiring within the next year or so, so extremely important to be established with new prescriber ROXANA. F/U with me in 6 weeks. She agrees with the plan. Assessment & Plan (05/27/2023 2:50 PM EDT): Mood and sleep have worsened markedly, and hallucinations are very bothersome. This is causing her severe emotional distress and she is having SI. At this time will increase to Seroquel 100 mg (risk/benefit reviewed). She will F/U ROXANA with [facility] for counseling and med mgt. F/U with Neurologist at [facility] per PCP. Also discussed option of seeking care at [facility] ED if movement disorder is intolerable. She will continue her other psychiatric medications Clonidine 0.1 mg TID, Duloxetine 60 mg BID, Gabapentin 800 mg TID, an Remeron 30 mg at bedtime. Increase to Seroquel 100 mg daily and stop Benztropine. On 04/27/2023 provider informed pt that I would be retiring within the next year or so, so extremely important to be established with new prescriber ROXANA. F/U with me in 3-4 weeks. She agrees with the plan. Assessment & Plan (04/27/2023 11:53 AM EDT): Mood is actually pretty good with adequate sleep, although hallucinations persist. Patient understands the etiology of the abnormal movements (tardive dyskinesia) as effect of her psychiatric medications. She has been referred to [facility] for counseling and med mgt, and has been given their phone number to call and request expedited appointment. She will also F/U with Neurologist at [facility] per PCP. Also discussed option of seeking care at [facility] ED if movement disorder is intolerable. She will continue her psychiatric medications for now including Seroquel 50 mg daily, Benztropine 2 mg BID, Clonidine 0.1 mg TID, Duloxetine 60 mg BID, Gabapentin 800 mg TID, an Remeron 30 mg at bedtime. Today 04/27/2023 provider informed pt that I would be retiring within the next year or so, so extremely important to be established with new prescriber ROXANA. F/U with me in 3-4 weeks. She agrees with the plan. Assessment & Plan (03/23/2023 2:27 PM EDT): Mood is actually pretty good with adequate sleep, although hallucinations persist. Patient understands the etiology of the abnormal movements (tardive dyskinesia) as effect of her psychiatric medications. She has been referred to [facility] for counseling and med mgt, and has been given their phone number to call and request expedited appointment. She will also F/U with Neurologist at [facility] per PCP. Also discussed option of seeking care at [facility] ED if movement disorder is intolerable. She will continue her psychiatric medications for now including Seroquel 50 mg daily, Benztropine 2 mg BID, Clonidine 0.1 mg TID, Duloxetine 60 mg BID, Gabapentin 800 mg TID, an Remeron 30 mg at bedtime. F/U with me in 3-4 weeks. She agrees with the plan. Assessment & Plan (03/04/2023 1:47 PM EDT): Mood is actually pretty good with adequate sleep, although hallucinations persist. Patient understands the etiology of the abnormal movements (tardive dyskinesia) as effect of her psychiatric medications. She has been referred to [facility] for counseling and med mgt, and has been given their phone number to call and request expedited appointment. She will also F/U with Neurologist at [facility] per PCP. Also discussed option of seeking care at [facility] ED if movement disorder is intolerable. She will continue her psychiatric medications for now including Seroquel 50 mg daily, Benztropine 2 mg BID, Clonidine 0.1 mg TID, Duloxetine 60 mg BID, Gabapentin 800 mg TID, an Remeron 30 mg at bedtime. F/U with me in 3-4 weeks. She agrees with the plan. Assessment & Plan (02/08/2023 12:21 PM EDT): Mood is pretty good, sleeping better since resuming Seroquel, hallucinations persist. Abnormal movements, including mouth and difficult speech consistent with medication-related movement disorder (tardive dyskinesia). She will continue her psychiatric medications for now. Referring urgently to outpatient agency for counseling and med mgt. Will start Valbenzene 40 mg daily. F/U with me in 3 weeks. She agrees with the plan. Assessment & Plan (01/14/2023 11:44 AM EDT): Assessment: Jeny was engaged with active reflective listening and open-ended questions. Assessed symptoms, risks, and social supports with direct questions. Discussed current symptoms intensity and frequency. Emotions were normalized and validated. She identified listening to music as coping mechanisms and talking with mother as protective factors. Provided psychoeducation around coping skills to manage anxiety and depressive sxs. Discussed OP therapy and Psychiatrist services, she agreed to both referrals. Provided education around integrated medicine and the options of follow up BE's as needed. Provided contact information should questions or concerns arise. Plan: Jeny will continue to engage in effective coping mechanisms that has work for her and will implement new ones disucssed. She will be referred to OP services. Patient with feeling anxious, persistent worry, trouble relaxing, restlessness, fearfulness, lack of motivation, little energy, insomnia, trouble concentrating, forgetfulness, poor appetite. AVH with commands multiple times in the week, isolation. She denies SI, HI, AVH or self-harm at this time. Living alone, Hx of trauma, Hx of substance abuse, Hx of SI attempts. Patient will benefit from Ind. Therapy and Psychiatrist services. (modality/interventions). At this time Jeny Vides meets criteria for Visit Diagnoses: Problem List Items Addressed This Visit Other Severe recurrent major depression with psychotic features ([facility]/HCC) Patient ready to address current needs Yes Strengths include Willing to engage in services, support from mother. PLAN: 1. Follow up with [facility]: Not recommended for follow-up 2. Patient goal is to become for stable with medication and learn coping mechanisms to manage sxs. 3. Behavioral Recommendations a. Ind. Therapy b. Psychiatrist c. Use of coping skills Assessment & Plan (01/07/2023 12:17 PM EDT): Mood is pretty good, sleeping better since resuming Seroquel 100 mg at bedtime. Unfortunately reports persistence and worsening of abnormal movements of mouth and shoulders, suspicious for medication-related movement disorder. She is taking Benztropine 2 mg BID. At this time will decrease to Seroquel 50 mg daily. Requesting therapist support and referral to outpatient [facility] for counseling and med mgt. Could also consider adding Valbenzene. However she is on extensive psychiatric polypharmacy. F/u with me in 4-6 weeks. She agrees with the plan. Assessment & Plan (11/26/2022 11:25 AM EDT): Mood seems quite good, did not explore hallucinations today. Sleeping better since resuming Seroquel 100 mg at bedtime. Unfortunately reports persistence of abnormal movements of mouth and shoulders, concerning for medication-related movement disorder. She is taking Benztropine 2 mg BID. Options include stopping antipsychotic, but would want her to have regular therapist support in order to tolerate. Could also consider adding Valbenzene. For now, no med changes, but we will request [facility] clinician outreach. F/u with me in 6 weeks. She agrees with the plan. Assessment & Plan (10/15/2022 11:52 AM EDT): Mood seems quite good, although hallucinations persist. Not sleeping well and requests resumption of Seroquel (previously had high dose). At this time will start Seroquel 100 mg at bedtime. Stop Vraylar (Cariprazine) 6 mg plus 1.5 mg. BF's report of abnormal movements of mouth and shoulders are concerning for medication- related movement disorder. I have asked her to please watch that and let me know if it persists, and might need med change. For now continue Benztropine 2 mg BID and other medications. Urged to call to F/u with therapist. F/u with me in 6 weeks. She agrees with the plan. Assessment & Plan (09/03/2022 12:08 PM EST): Mood is better although auditory and visual hallucinations persist (but are not too distressing). Sleepwalking and talking have improved since stopping Zolpidem. Not sleeping well, will again increase to Mirtazapine 30 mg atbedtime. Continue other medications. Call to F/u with therapist. F/u with me in 4-6 weeks. She agrees with the plan. Assessment & Plan (08/03/2022 10:43 AM EST): Mood is better although auditory and visual hallucinations persist (but are not too distressing). Reports that mother observed her sleepwalking and talking, which may be r/t Zolpidem. Asked to hold Zolpidem for a few nights and see if this improved. Will increase to Mirtazapine 15 mg atbedtime. Continue other medications. Call to F/u with therapist. F/u with me in 1 month. She agrees with the plan. Assessment & Plan (07/02/2022 11:00 AM EST): PHQ9 score is very high today, which patient attributes to stress of the season and worries about her mother. However her affect is bright and optimistic, hallucinations mostly controlled. Mild passive SI without recurrence of suicidal intent (reports actual attempt beginning of 2021, with intentional overdose of Rx medication, told her mother but refused transport to ED). She is already on significant psychiatric polypharmacy and previously was intolerant of multiple other antipsychotics. No med changes at this time. She will call to schedule appt with her therapist. Also reviewed 988 Suicide Hotline. F/U with me in approx 1 month. She agrees with the plan. Cocaine abuse 06/22/2022 Assessment & Plan (11/26/2022 11:26 AM EDT): States no use in greater than 2 months. Urged to continue to abstain. Assessment & Plan (10/15/2022 11:54 AM EDT): States no use in greater than 2 months. Urged to continue to abstain. Assessment & Plan (09/03/2022 12:09 PM EST): Using infrequently, not totally abstinent. Reviewed that this was likely worsening her mood and hallucinations, and also there was risk of unintended exposure to different drugs. Assessment & Plan (08/03/2022 10:43 AM EST): Has remained abstinent. Assessment & Plan (07/02/2022 11:00 AM EST): Pt reports last use More than 1 month ago. Denies using other substances. Denis hematuria 06/22/2022 Hand pain 06/22/2022 Hypertensive disorder 06/22/2022 Assessment & Plan (07/04/2024 5:05 PM EST): I advised: - Aerobic exercise to reduce BP. Initial goal of 30 min walk 3-5x/week. Increase as tolerated. - low-sodium diet (goal: <2g/day) and heart healthy diet such as DASH to reduce BP and prevent ASCVD. - Home BP monitoring 1-2 x day with goal of <140/90. - Seek immediate medical attention for chest pain, palpitations, SOB, syncope, or sudden changes in mental status. - Do not change or discontinue current prescriptions without first consulting health care provider Assessment & Plan (03/03/2024 12:04 PM EDT): - Aerobic exercise to reduce BP. Initial goal of 30 min walk 3-5x/week. Increase as tolerated. - low-sodium diet (goal: <2g/day) and heart healthy diet such as DASH to reduce BP and prevent ASCVD. - Home BP monitoring 1-2 x day with goal of <140/90. - Seek immediate medical attention for chest pain, palpitations, SOB, syncope, or sudden changes in mental status. - Do not change or discontinue current prescriptions without first consulting health care provider Assessment & Plan (12/22/2023 2:30 PM EDT): - Aerobic exercise to reduce BP. Initial goal of 30 min walk 3-5x/week. Increase as tolerated. - low-sodium diet (goal: <2g/day) and heart healthy diet such as DASH to reduce BP and prevent ASCVD. - Home BP monitoring 1-2 x day with goal of <140/90. - Seek immediate medical attention for chest pain, palpitations, SOB, syncope, or sudden changes in mental status. - Do not change or discontinue current prescriptions without first consulting health care provider Assessment & Plan (12/02/2023 11:08 AM EDT): - Aerobic exercise to reduce BP. Initial goal of 30 min walk 3-5x/week. Increase as tolerated. - low-sodium diet (goal: <2g/day) and heart healthy diet such as DASH to reduce BP and prevent ASCVD. - Home BP monitoring 1-2 x day with goal of <140/90. - Seek immediate medical attention for chest pain, palpitations, SOB, syncope, or sudden changes in mental status. - Do not change or discontinue current prescriptions without first consulting health care provider Assessment & Plan (10/27/2023 3:07 PM EDT): Today BP is high she is nervous and forgot to take her medication, patient is clinically asymptomatic I advise low Na diet, weight reduction and to take her meds every day, I advise to monitor her BP at home and report back Assessment & Plan (08/02/2023 3:13 PM EST): - Aerobic exercise to reduce BP. Initial goal of 30 min walk 3-5x/week. Increase as tolerated. - low-sodium diet (goal: <2g/day) and heart healthy diet such as DASH to reduce BP and prevent ASCVD. - Home BP monitoring 1-2 x day with goal of <140/90. - Seek immediate medical attention for chest pain, palpitations, SOB, syncope, or sudden changes in mental status. - Do not change or discontinue current prescriptions without first consulting health care provider Assessment & Plan (05/21/2023 2:29 PM EDT): - Aerobic exercise to reduce BP. Initial goal of 30 min walk 3-5x/week. Increase as tolerated. - low-sodium diet (goal: <2g/day) and heart healthy diet such as DASH to reduce BP and prevent ASCVD. - Home BP monitoring 1-2 x day with goal of <140/90. - Seek immediate medical attention for chest pain, palpitations, SOB, syncope, or sudden changes in mental status. - Do not change or discontinue current prescriptions without first consulting health care provider Assessment & Plan (02/26/2023 1:28 PM EDT): - Aerobic exercise to reduce BP. Initial goal of 30 min walk 3-5x/week. Increase as tolerated. - low-sodium diet (goal: <2g/day) and heart healthy diet such as DASH to reduce BP and prevent ASCVD. - Home BP monitoring 1-2 x day with goal of <140/90. - Seek immediate medical attention for chest pain, palpitations, SOB, syncope, or sudden changes in mental status. - Do not change or discontinue current prescriptions without first consulting health care provider Assessment & Plan (11/11/2022 10:10 AM EDT): Maintenance: BMP: ordered today Lipid Panel: ordered today ASCVD Risk: patient already on statin - Aerobic exercise to reduce BP. Initial goal of 30 min walk 3-5x/week. Increase as tolerated. - low-sodium diet (goal: <2g/day) and heart healthy diet such as DASH to reduce BP and prevent ASCVD. - Home BP monitoring 1-2 x day with goal of <140/90. - Seek immediate medical attention for chest pain, palpitations, SOB, syncope, or sudden changes in mental status. - Do not change or discontinue current prescriptions without first consulting health care provider Mood disorder 06/22/2022 Neck pain 06/22/2022 Resolved Problems Problem Noted Date Diagnosed Date Resolved Date UTI (urinary tract infection) 03/21/2024 04/28/2024 Assessment & Plan (03/21/2024 2:08 PM EDT): Do not hold urine Drink plenty of water UA compatible with UTI Macrobid prescribed culture send patient will be contacted if antibiotic needs to be change Encounter for screening mamm ogram for malignant neoplasm of breast 12/02/2023 04/28/2024 Preop examination 10/27/2023 04/28/2024 Assessment & Plan (10/27/2023 3:18 PM EDT): RCRI score is 1 which means a risk of 6% Surgery should proceed as schedule Patient is not on blood thinners only on aspirin which is ok to continue Patient is on insulin I instructed to only use half orf the dose of long acting inslulin (the night before the procedure) and to skip short acting insulin the day of the procedure because she will be NPO after mid night I instructed to take her psych meds and her blood pressure meds with small sip of water the day of the procedure Lipoma 05/21/2023 04/28/2024 Other constipation 11/11/2022 Assessment & Plan (11/11/2022 10:09 AM EDT): Lactulose ordered today Patient refer to GI Screening mammogram for breast cancer 11/11/2022 04/28/2024 Dysuria 06/22/2022 04/28/2024 Glycosuria 06/22/2022 04/28/2024 Encounters * This document contains information received from the source organization and may not represent a complete record from that organization. Date Type Department Care Team Description 08/25/2024 Refill [facility] [address] [place] [address] Demetra Layton MD Hypertension, unspecified type 08/25/2024 Refill [facility] [address] [place], [place] [phone] Brenda Tovar MD Mood disorder ([facility]); Type 2 diabetes mellitus with hyperglycemia, with long-term current use of insulin ([facility]); Hypertension, unspecified type 08/17/2024 Refill [facility] [address] [place] [address] Brenda Tovar MD Hypertension, unspecified type 08/04/2024 1:30 PM EST Office Visit [facility] [address] [place], [place] [phone] Donita Sanz, OD Diabetes type 2, no ocular involvement ([facility]/HCC) (Primary Dx); Chorioretinal scar of both eyes; Dry eyes; Pseudophakia of both eyes; Presbyopia 08/04/2024 Travel 08/04/2024 Refill [facility] [address] [place] [address] Brenda Tovar MD Type 2 diabetes mellitus with hyperglycemia, with long-term current use of insulin (CMS/HCC) 07/18/2024 Refill [facility] [address] [place] [address] Brenda Tovar MD Primary hypertension; Heartburn 07/17/2024 Refill [facility] [address] [place] [address] Brenda Tovar MD Mood disorder ([facility]); Hypertension, unspecified type 07/06/[address] [phone] 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 06/30/2024 11:30 AM EST Office Visit [facility] [address] [place] [phone] Brenda Tovar MD Tardive dyskinesia (Primary Dx); Type 2 diabetes mellitus with hyperglycemia, with long-term current use of insulin ([facility]); Primary hypertension 06/30/2024 Travel 06/28/2024 Telephone [facility] [address] [place] [phone] Jose Montague [place] Durable Medical Equipment 06/26/2024 Telephone [facility] [address] [place] [phone] Sandra Michele RN 06/26/2024 Telephone [facility] [address] [place] [phone] Brenda Tovar MD Durable Medical Equipment ([facility] Request) 06/26/[address] [address] Eddi, [place], [place] Durable Medical Equipment from Last 3 Months Immunizations Name Administration Dates Next Due Influenza injectable quadriv alent preservative free 06/14/2023,04/23/2022,05/20/2021,2019,08/22/2019 Influenza, IIV3, injectable 05/09/2014 Influenza, seasonal, injecta ble, preservative free 04/28/2024 Moderna Covid-19 Vaccine 12+ 10/30/2020,10/03/19 21 Pfizer Covid-19 Vaccine 12+ 04/28/2024, 3 Pfizer Covid-19 Vaccine 12+ Bivalent 04/27/2022 Pneumococcal Conjugate PCV 20 03/03/2024 Tdap 06/25/2022 Zoster, Recombinant 06/25/2022,04/23/2022 Family History Medical History Relation Name Comments Asthma Mother Depression Mother Diabetes Mother Hypertension Mother Diabetes Sister Relation Name Status Comments Mother Sister Social History Tobacco Use Types Packs/Day Years Used Date Smoking Tobacco: Every Day Cigarettes Passive Smoke Exposure: Current Smokeless Tobacco: Never Tobacco Cessation:Ready to Q uit: Not Asked; Counseling Given: Not Answered Alcohol Use Standard Drinks/Week Comments Never 0 (1 standard drink = 0.6 oz pur e alcohol) Alcohol Answer Date Recorded Frequency of Alcohol Consumption Not on file 03/03/2024 Average Number of Drinks Not on file 024 Frequency of Binge Drinking Not on file 03/2024 Score 0 03/03/2024 Depression Answer Date Recorded Patient Health Questionnaire-9 Score 0 03/03/2024 Patient Health Questionnaire-9 Score 0 03/03/2024 Last PHQ-9: Questionnaire Data Not on file 0 03/03/2024 Housing Stability Answer Date Recorded What is your housing situation today? I do not have housing (Staying with others, in a hotel, in a custodial, living outside on the street, on a beach, in a car, or in a park 12/10/[address] you li ve. Do you have problems with any of the following? None of the above 12/10/2023 Food Insecurity Answer Date Recorded Within the past 12 months, y ou worried that your food would run out before you got money to buy more: Never True 12/10/2023 Within the past 12 months,th e food you bought just didn't last and you didn't have enough money to get more: Never True Transportation Answer Date Recorded In the past 12 months, has l ack of transportation kept you from medical appts, meetings, work or from getting things needed for daily living? No 12/10/2023 Utilities Answer Date Recorded In the past 12 months, has t he electric, gas, oil or water company threatened to shut off services in your home? No 12/10/2023 Depression Answer Date Recorded Patient Health Questionnaire-2 Score 0 03/03/2024 Comments Unknown Sex and Gender Information Value Date Recorded Sex Assigned at Female 05/25/2022 10:35 AM EDT Legal Sex Female 10:35 AM EDT Gender Identity Female 05/25/2022 10:35 AM EDT Sexual Orientation Choose not to disclose 2021 10:35 AM EDT Last Filed Vital Signs Vital Sign Reading Time Taken Comments Blood Pressure 118/80 06/30/2024 11:27 AM EST Pulse 82 06/30/2024 11:27 AM EST Temperature 36.7 ??C (98 ??F) 06/30/2024 11:27 AM EST Respiratory Rate 17 06/30/2024 11:27 AM EST Oxygen Saturation 97% 03/21/2024 1:31 PM EDT Inhaled Oxygen Concentration - - Weight 104 kg (228 lb 12.8 oz) 06/30/2024 11:27 AM EST Height 165.1 cm (5' 5 ) 06/30/2024 11:27 AM EST Body Mass Index 38.07 06/30/2024 11:27 AM EST Plan of Treatment Health Maintenance Due Date Last Done Comments CT Colonography 1968 Colonoscopy 1968 Colorectal Cancer Screening 1968 Dental Oral Exam 1968 Dental Prophylaxis 1968 Dental X-Ray: Bitewings 1968 Dental X-Ray: Full Mouth 1968 FIT DNA/Cologuard 1968 FIT 1968 FOBT 1968 HIV Screening 1968 Sigmoidoscopy 1968 Diabetes: Foot Exam 1978 Hepatitis A Vaccines (1 of 2 - Risk 2-dose series) 1987 Hepatitis B Vaccines (1 of 3 - 19+ 3-dose series) 1987 Pap Smear 1989 HPV/Cotest 1998 Mammogram 2008 Diabetes: Hemoglobin A1C 09/28/2024 024, 04/28/2024, 03/03/2024, Additional history exists SDOH Screening 12/09/2024 12/10/2023 Alcohol/Substance Use Screening 03/03/2025 03/03/2024 Depression Screening 03/03/2025 03/03/2024, 03/03/20 Diabetes: Urine Protein Screening 03/28/2025 03/28/2024, 12/08/2022, 02/15/2020 Lipid Panel 03/28/2025 03/28/2024, 11/23, 05/22/2021, Additional history exists Tobacco Screening 08/18/2025 08/18/2024 Eye Exam 08/04/2026 08/04/2024, 07/26, 08/04/2024, Additional history exists DTaP/Tdap/Td Vaccines (2 - Td or Tdap) 06/25/2032 06/25/2022 RSV Patients and Patients Aged 60 years or older (1 - 1-dose 75+ series) 2043 Hepatitis C Screening Completed 09/26/2019 Zoster Vaccines Completed 06/25/2022, 04/23/2022 Pneumococcal Vaccine: 50+ Years Completed 03/03/2024 COVID-19 Vaccine Completed 04/28/2024, , 04/27/2022, Additional history exists Influenza Vaccine Completed 04/28/2024, , 04/23/2022, Additional history exists Cervical Cancer Screening Discontinued HIB Vaccines Aged Out No longer eligi ble based on patient's age to complete this topic HPV Vaccines Aged Out No longer eligi ble based on patient's age to complete this topic IPV Vaccines Aged Out No longer eligi ble based on patient's age to complete this topic Meningococcal Vaccine Aged Out No jocy miriam eligible based on patient's age to complete this topic RSV under 20 months Aged Out No longe r eligible based on patient's age to complete this topic Rotavirus Vaccines Aged Out No longer eligible based on patient's age to complete this topic Procedures Procedure Name Priority Date/Time Associated Diagnosis Comments HEMOGLOBIN A1C Routine 06/30/2024 11:33 AM EST Type 2 diabetes mellitus with hyperglycemia, with long-term current use of insulin ([facility]) POCT GLUCOSE Routine 06/30/2024 11:30 AM EST Type 2 diabetes mellitus with hyperglycemia, with long-term current use of insulin ([facility]) ALBUMIN, RANDOM URINE W/CREATININE Routine 03/28/2024 11:30 AM EDT Type 2 diabetes mellitus with hyperglycemia, with long-term current use of insulin ([facility]) LIPID PANEL WITH REFLEX TO DIRECT LDL Routine 03/28/2024 11:11 AM EDT Type 2 diabetes mellitus with hyperglycemia, with long-term current use of insulin ([facility]) ZZZ HISTORICAL HEPATITIS A,B,C PROFILE Routine 09/26/2019 9:47 AM EST from Last 3 Months or Most Recently Relevant to Health Maintenance Results * (ABNORMAL) Hemoglobin A1c (06/30/2024 11:33 AM EST) Hemoglobin A1c 10.6 [facility] Blood Venous blood specimen / Unknown 06/30/2024 11:33 AM EST us Brenda Ojeda MD LAB BLOOD ORDERABLES Final Result [facility] [address] [place], [place] [phone] * (ABNORMAL) POCT Glucose (06/30/2024 11:30 AM EST) Glucose Blood, POC 213(A) 60 - 200 mg/dL QC Media Lot # [id number] Lot# Expiration Date [id number] Blood Capillary blood specimen / Unknown 06/30/2024 11:30 AM EST us Brenda Ojeda MD POINT OF CARE TEST EN TER/EDIT ORDERABLES Final Result * (ABNORMAL) Albumin, Random Urine W/Creatinine (03/28/2024 11:30 AM EDT) Creatinine, Urine 28.16 mg/dL [facility] Microalbumin Urine 29.0 mg/L H [facility] Microalbum Creatinine Ratio Ur 102.9(H) <30 ug/mg cr [facility] Comment:Albumin/Creatinine R atio Reference Ranges: Normal: < 30 ug/mg creatinine Microalbuminuria: 30 - 300 ug/mg creatinineClinical Albuminuria: > 300 ug/mg creatinine Urine (Urine, Random) 03/28/2024 11:30 AM EDT 03/28/2024 1:10 PM EDT Brenda Ojeda MD LAB URINE ORDERABLES Final Result [facility] [address] [place] [phone] * (ABNORMAL) Lipid Panel with Reflex to Direct LDL (03/28/2024 11:11 AM EDT) Triglycerides 254(H) <150 mg/dL [facility] Comment:Desirable Triglyceri de: less than 150 mg/dLBorderline High Triglyceride 150-199 mg/dLHigh Triglyceride: 200-499 mg/dLVery High Triglyceride: greater than or equal to 5OO mg/dL Cholesterol 168 <200 mg/dL [facility] Comment:Desirable Cholestero l: less than 200 mg/dLBorderline High Cholesterol: 200-239 mg/dLHigh Cholesterol: greater than 239 mg/dL LDL Cholesterol Calculated 68 <100 mg/dL [facility] Comment:Desirable LDL: less than 100 mg/dLNear Optimal/Above Optimal LDL: 110- 129 mg/dLBorderline High LDL: 130-159 mg/dLHigh LDL: 160-189 mg/dLVery High LDL: greater than or equal to 190 mg/dL HDL Cholesterol 50 >40 mg/dL [facility] Comment:Desirable HDL: great er than 40 mg/dL Note: This HDL assay may give artificially low results in patients with liver disease. Blood 03/28/2024 11:1 1 AM EDT 03/28/2024 1:28 PM EDT us Brenda Ojeda MD LAB BLOOD ORDERABLES Final Result [facility] [address] [place] [phone] * HEPATITIS A,B,C PROFILE (09/26/2019 9:47 AM EST) HEPATITIS B CORE ANTIBODY NONREACTIVE NONREACTIVE [facility] HEPATITIS B INTERPRETATION SEE NOTE [facility] Comment:Negative for Hepatit is B. HEPATITIS B SURFACE ANTIBODY NONREACTIVE NONREACTIVE [facility] Comment:NONREACTIVE: < 8.00 mIU/mL HEPATITIS B SURFACE ANTIGEN NEGATIVE NEGATIVE [facility] HEPATITIS C ANTIBODY NONREACTIVE NONREACTIVE [facility] Comment: Antibodies to HCV not detected; does not exclude early acute HCV infection. 09/26/2019 9:47 AM EST us Historical Provider HISTORICAL/NON ORDERABLE LABS Final Result Performing Organization Address [facility] Co de Phone Number [facility] [address] from Last 3 Months or Most Recently Relevant to Health Maintenance Insurance [facility] Care Teams Gamb Cutter Relationship Specialty Start Date End Date Brenda Tovar MD [address] [place] [address] PCP - General Family Medicine 02/16/19 Eugene Jarvis FNP [address] [place] [address] Nurse Practitioner Family Medicine 06/21/23
--- OUTSIDE RECORDS SUMMARY | 2024-09-21 12:55 | XMS_ITS | Encounter Summary ---
Author Organization [employer] Address [address] [facility] 7 [place] [address] Care Team Providers Care Surveillance Supervisor Name Role Phone Brenda Tovar MD Primary Care Provide r Eugene Jarvis Unavailable Unavailable Reason for Visit * Reason Comments Med Refill Encounter Details Date Type Department Care Team ([facility] st Contact Info) Description 03/13/2024 Refill [facility] [address] [place], [place] [phone] Brenda Tovar MD [address] [place] [address] Moderate persistent asthma without complication Social History Tobacco Use Types Packs/Day Years Used Date Smoking Tobacco: Every Day Cigarettes Passive Smoke Exposure: Current Smokeless Tobacco: Never Alcohol Use Standard Drinks/Week Comments Never 0 [...] with others, in a hotel, in a jail, living outside on the street, on a [...] not to disclose 2021 10:35 AM EDT documented as of this encounter Plan of Treatment Not on file documented as of this encounter Visit Diagnoses Diagnosis Moderate persistent asthma without complication documented in this encounter Additional Health Concerns Assessment Noted Time PHQ-9 Depression Total Score: 0 03/03/20 24 11:00 AM EDT documented as of this encounter Care Teams Surveillance Supervisor Relationship Specialty Start Date End Date Brenda Tovar MD [address] [place] [address] PCP - General Family Medicine 02/16/19 Eugene Jarvis FNP [address] [place] [address] Nurse Practitioner Family Medicine 06/21/23 documented as of this encounter
--- OUTSIDE RECORDS SUMMARY | 2024-09-21 12:55 | XMS_ITS | Clinical Summary ---
Author Organization [facility] Address [address] [place] [address] Care Team Providers Care Jewelry Jobber Name Role Phone Unavailable Primary Care Provider Unavailabl e Source Comments PLEASE NOTE, if this patient is a minor, it may be UNLAWFUL to discuss sensitive information that is contained in these records (such as FAMILY PLANNING, MENTAL HEALTH or SUBSTANCE ABUSE) with the minor patient's parent or other person without the patient's specific authorization.[facility] Medications acetaminophen (TYLENOL) 500 mg tabletIndications: Chronic apical periodontitis Take 1 Tablet by mouth every 6 (six) hours as needed for pain 20 Tablet Active Active Problems No known active problems Social History Tobacco Use Types Packs/Day Years Used Date Smoking Tobacco: Every Day Cigarettes Smokeless Tobacco: Never Tobacco Cessation:Ready to Q uit: Not Asked; Counseling Given: Not Answered Social Connections Answer Date Recorded Connectedness 0 04/22/2024 Financial Resource Strain Answer Date R ecorded Financial Resource Strain 0 2022 Stress Answer Date Recorded Stress 0 06/13/2023 Physical Activity Answer Date Recorded Physical Activity 0 06/13/2023 Food Insecurity Answer Date Recorded Food 0 04/20/2024 Transportation Needs Answer Date Record ed Transportation 0 06/13/2023 Housing Stability Answer Date Recorded Housing 0 06/13/2023 Safety and Environment Answer Date [place] rded Safety 0 06/13/2023 Utilities Answer Date Recorded Utilities 0 06/13/2023 Employment Answer Date Recorded Stress 0 04/22/2024 Comments Unknown Sex and Gender Information Value Date Recorded Sex Assigned at Not on file Legal Sex Female 10:03 AM PDT Gender Identity Not on file Sexual Orientation Not on file Last Filed Vital Signs Vital Sign Reading Time Taken Comments Blood Pressure 151/88 05/04/2024 1:54 PM EDT Pulse 99 05/04/2024 1:54 PM EDT Temperature - - Respiratory Rate - - Oxygen Saturation - - Inhaled Oxygen Concentration - - Weight - - Height - - Body Mass Index - - Plan of Treatment Health Maintenance Due Date Last Done Comments HPV Screening 1968 Hepatitis C Screening 1968 Pap + HPV 1968 Tobacco Cessation Counseling (#1) 1968 HIV Screening 1983 Medicare Annual Wellness Visit 1986 Imm-Hepatitis B (1 of 3 - 19 + 3-dose series) 1987 Cervical Cancer Screening 1989 Pap Smear 1989 Breast Cancer Screening (Mammogram) 2008 CT Colonography 2013 Colonoscopy 2013 Colorectal Cancer Screening 2013 FIT/gFOBT 2013 Fecal DNA 2013 Flexible Sigmoidoscopy 2013 Imm-Zoster, Recombinant (1 of 2) 2018 Alcohol and Drug Screen 07/26/2024 Depression Annual Screen 07/26/2024 Dental BW 2024 09/08/2023 Dental Examination 03/11/2025 03/09/2024, 09/08/2023 Dental Perio Charting 03/11/2025 03/09/2024 Dental Prophy 03/11/2025 03/09/2024, 09/08/2023 Hypertension Screening (#1) 05/04/2025 Diabetes Screening 12/01/2026 12/02/2023 Lipid Screening 12/09/2027 12/08/2022 Dental FMX/Pano 10/29/2028 10/28/2023, 09/08/2023 Imm-DTaP/Tdap/Td (2 - Td or Tdap) 06/25/2032 022 Imm-Pneumococcal Completed 03/03/2024 [id number] Completed 04/28/2024, 05/27, 04/27/2022, Additional history exists Imm-Influenza Completed 04/28/2024, 05/27, 04/23/2022, Additional history exists Cervical Ablation/Cold-Knife Conization Discontinued Cervical Cryotherapy Discontinued Colposcopy Discontinued Endometrial Biopsy Discontinued Excision/Leep Discontinued HPV Genotyping Discontinued Vaginal Pap Discontinued Vulvoscopy Discontinued Procedures Procedure Name Priority Date/Time Associated Diagnosis Comments COMP PERIODONTAL EVALUATION - NEW/EST PATIENT Routine 03/09/2024 1:00 PM EDT Encounter for dental examination PROPHYLAXIS - ADULT Routine 03/09/2024 1 :00 PM EDT Encounter for dental examination PERIODIC ORAL EVALUATION ESTABLISHED PATIENT Routine 03/09/2024 1:00 PM EDT Encounter for dental examination PANORAMIC RADIOGRAPHIC IMAGE Routine 10/28/2023 10:40 AM EDT Chronic apical periodontitis Caries INTRAORAL - COMP SERIES OF RADIOGRAPHIC IMAGES Routine 09/08/2023 1:00 PM EST Caries of enamel (incipient) Caries from Last 3 Months or Most Recently Relevant to Health Maintenance Insurance [facility] - [facility]
--- OUTSIDE RECORDS SUMMARY | 2024-09-21 12:55 | XMS_ITS | Encounter Summary ---
Author Organization [employer] Address [address] [facility] 7 [place] [address] Care Team Providers Care Electric Tripper Machine Operator Name Role Phone Brenda Tovar MD Primary Care Provide r Eugene Jarvis Unavailable Unavailable Reason for Visit * Reason Comments Med Refill Encounter Details Date Type Department Care Team (Late st Contact Info) Description 04/17/2023 Refill [facility] [address] [place], [place] [phone] Dragan Stoner FNP Constipation, unspecified constipation type Social History Tobacco Use Types Packs/Day [...] as of this encounter Visit Diagnoses Diagnosis Constipation, unspecified constipation type documented in this encounter Additional Health Concerns Assessment Noted Time PHQ-9 Depression Total Score: 12 023 1:28 PM EDT documented as of this encounter Care Teams Electric Tripper Machine Operator Relationship Specialty Start Date End Date Brenda Tovar MD [address] [place] [address] PCP - General Family Medicine 02/16/19 Eugene Jarvis FNP [address] [place] [address] Nurse Practitioner Family Medicine 06/21/23 documented as of this encounter
--- OUTSIDE RECORDS SUMMARY | 2024-09-21 12:56 | XMS_ITS | Encounter Summary ---
Author Organization [employer] Address [address] [facility] 7 [place] [address] Care Team Providers Care Credit Union Teller Name Role Phone Brenda Tovar MD Primary Care Provide r Eugene Jarvis Unavailable Unavailable Reason for Visit * Reason Comments Med Refill Encounter Details Date Type Department Care Team ([facility] st Contact Info) Description 05/19/2024 Refill [facility] MEDICINE [address] [place], [place] [phone] Mary Clemente MD [address] [place] [address] Moderate persistent asthma without complication Social History [...] with others, in a hotel, in a prison, living outside on the street, on a [...] documented as of this encounter Care Teams Credit Union Teller Relationship Specialty Start Date End Date Brenda Tovar MD [address] [place] [address] PCP - General Family Medicine 02/16/19 Eugene Jarvis FNP [address] [place] [address] Nurse Practitioner Family Medicine 06/21/23 documented as of this encounter
--- OUTSIDE RECORDS SUMMARY | 2024-09-21 12:56 | XMS_ITS | Encounter Summary ---
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 I have suzie leung 05/06/[address] you li ve. Do you have problems with any of the following? Pests such as bugs, ants, or mice 05/06/2023 Food Insecurity Answer Date Recorded Within the past 12 months, y ou worried that your food would run out before you got money to buy more: Never True 05/13/2023 Within the past 12 months,th e food you bought just didn't last and you didn't have enough money to get more: Never True Transportation Answer Date Recorded In the past 12 months, has l ack of transportation kept you from medical appts, meetings, work or from getting things needed for daily living? No 05/13/2023 Utilities Answer Date Recorded In the past 12 months, has t he electric, gas, oil or water company threatened to shut off services in your home? 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) Major depressive disorder, recurrent episode, severe, specified as with psychotic behavior 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
--- OUTSIDE RECORDS SUMMARY | 2024-09-21 12:56 | XMS_ITS | Encounter Summary ---
Author Organization [employer] Address [address] [facility] 7t [place] [address] Care Team Providers Care Inkjet Operator Name Role Phone Brenda Tovar MD Primary Care Provide r Eugene Jarvis Unavailable Unavailable Reason for Visit * Reason Comments Med Refill Encounter Details Date Type Department Care Team ([facility] st Contact Info) Description 08/24/2023 Refill [facility] DI[facility] [address] [place] [address] Brenda Tovar MD [address] [place] [address] Social History Tobacco Use Types Packs/Day Years [...] documented as of this encounter Visit Diagnoses Not on filedocumented in this encounter Additional Health Concerns Assessment Noted Time PHQ-9 Depression Total Score: 16 024 11:11 AM EST documented as of this encounter Care Teams Inkjet Operator Relationship Specialty Start Date End Date Brenda Tovar MD [address] [place] [address] PCP - General Family Medicine 02/16/19 Eugene Jarvis FNP [address] [place] [address] Nurse Practitioner Family Medicine 06/21/23 documented as of this encounter
--- OUTSIDE RECORDS SUMMARY | 2024-09-21 12:56 | XMS_ITS | Encounter Summary ---
Author Organization [employer] Address [address] [place] [address] Care Team Providers Care Supervisor Lead Burning Name Role Phone Brenda Tovar MD Primary Care Provide r Eugene Jarvis Unavailable Unavailable Reason for Visit * Reason Comments Med Refill Encounter Details Date Type Department Care Team ([facility] st Contact Info) Description 10/06/2023 Refill [facility] MEDICINE [address] [place] [address] Eugene Jarvis FNP Severe recurrent major depression [...] documented as of this encounter Care Teams Supervisor Lead Burning Relationship Specialty Start Date End Date Brenda Tovar MD [address] [place] [address] PCP - General Family Medicine 02/16/19 Eugene Jarvis FNP [address] [place] [address] Nurse Practitioner Family Medicine 06/21/23 documented as of this encounter
--- OUTSIDE RECORDS SUMMARY | 2024-09-21 12:56 | XMS_ITS | Encounter Summary ---
Author Organization [employer] Address [address] [facility] [place] [address] Care Team Providers Care Cloth Printer Name Role Phone Brenda Tovar MD Primary Care Provide r Eugene Jarvis Unavailable Unavailable Reason for Visit * Reason Comments Med Refill Encounter Details Date Type Department Care Team (Late st Contact Info) Description 08/25/2024 Refill [facility] [address] [place] [address] Brenda Tovar MD [address] [place] [address] Mood disorder (CMS/HCC); Type 2 diabetes mellitus with hyperglycemia, with long-term current use of insulin (CMS/HCC); Hypertension, unspecified type Social History Tobacco Use [...] with others, in a hotel, in a residential, living outside on the street, on a [...] as of this encounter Visit Diagnoses Diagnosis Mood disorder (CMS/[facility]) Unspecified episodic mood disorder Type 2 diabetes mellitus with hyperglycemia, with long-term current use of insulin ([facility]) Hypertension, unspecified type documented in this encounter Additional Health Concerns Assessment Noted Time PHQ-9 Depression Total Score: 0 03/03/20 24 11:00 AM EDT documented as of this encounter Care Teams Cloth Printer Relationship Specialty Start Date End Date Brenda Tovar MD [address] [place] [address] PCP - General Family Medicine 02/16/19 Eugene Jarvis FNP [address] [place] [address] Nurse Practitioner Family Medicine 06/21/23 documented as of this encounter
--- OUTSIDE RECORDS SUMMARY | 2024-09-21 12:56 | XMS_ITS | Encounter Summary ---
Author Organization [employer] Address [address] [facility] 7 [place] [address] Care Team Providers Care Cycle Counter Name Role Phone Brenda Tovar MD Primary Care Provide r Eugene Jarvis Unavailable Unavailable Reason for Visit * Reason Comments Med Refill Encounter Details Date Type Department Care Team ([facility] st Contact Info) Description 08/25/2024 Refill [facility] MEDICINE [address] [place], [place] [phone] Demetra Layton MD [address] [place] [address] Hypertension, unspecified type Social History Tobacco Use [...] with others, in a hotel, in a detention, living outside on the street, on a [...] documented as of this encounter Care Teams Cycle Counter Relationship Specialty Start Date End Date Brenda Tovar MD [address] [place] [address] PCP - General Family Medicine 02/16/19 Eugene Jarvis FNP [address] [place] [address] Nurse Practitioner Family Medicine 06/21/23 documented as of this encounter
--- OUTSIDE RECORDS SUMMARY | 2024-09-21 12:56 | XMS_ITS | Encounter Summary ---
Author Organization [employer] Address [address] [place] [address] Care Team Providers Care Short Story Writer Name Role Phone Brenda Tovar MD Primary Care Provide r Eugene Jarvis Unavailable Unavailable Encounter Details Date Type Department Care Team ([facility] st Contact Info) Description 01/18/2023 Telephone [facility] [address] [place], [place] [phone] Brenda Tovar MD [address] [place], [place] [phone] Social History Tobacco Use Types Packs/Day Years [...] Noted Time PHQ-9 Depression Total Score: 20 01/14/ 023 11:23 AM EDT documented as of this encounter Care Teams Short Story Writer Relationship Specialty Start Date End Date Brenda Tovar MD [address] [place] [address] PCP - General Family Medicine 02/16/19 Eugene Jarvis FNP [address] [place] [address] Nurse Practitioner Family Medicine 06/21/23 documented as of this encounter
== END 2024-09-21 11:31 | disposition home or self-care (01) ==
PROVIDERS: PCP Internal Medicine; Visit Provider Internal Medicine
DX: R07.2 Precordial pain (principal); E11.9 Type 2 diabetes mellitus without complications; I10 Essential (primary) hypertension; E78.5 Hyperlipidemia, unspecified
CPT/HCPCS: 99204; G2211

== ENCOUNTER → 2024-09-21 10:52 | Outpatient (BNVA) | payer OTHER, SELFPAY | PROVIDERS: PCP Internal Medicine; Visit Provider Internal Medicine | DX: R07.2 Precordial pain (principal); I10 Essential (primary) hypertension; E78.5 Hyperlipidemia, unspecified; E11.9 Type 2 diabetes mellitus without complications | CPT/HCPCS: 99202 ==

== ENCOUNTER 2024-11-13 09:26 | Inpatient (IN) | payer OTHER, SELFPAY ==
--- NOTE | ~2024-11-13 | CT_ITS ---
CLINICAL HISTORY: neck pain, swelling, difficulty swallowing CT soft tissue neck with contrast Comparison: None Findings: The visualized intracranial contents are unremarkable. There is mild prominence of the adenoidal soft tissues and the palatine tonsils. No peritonsillar abscess. Salivary glands are within normal limits. No sialoliths. Thyroid gland is unremarkable. Complete opacification of the right maxillary sinus and partial opacification of the left maxillary sinus and ethmoid air cells. No consolidation at the lung apices. No acute fractures. IMPRESSION: There is prominence of the adenoidal soft tissues and palatine tonsils without peritonsillar abscess. Paranasal sinus disease. This document has been electronically signed by: Pascual Alexander MD on 11/13/2024 11:43:44
[2024-11-13 09:33] VITALS: BP 121/65; PULSE 110; RESP 18; TEMP 36.5; O2SAT 97; BMI 35.8
[2024-11-13 09:51] LABS: MANUAL DIFF FLAG NO
[2024-11-13 09:52] LABS: Basophils Percent Auto 0.3 % (0-2); Eosinophils Absolute Auto 0.2 X10*3/uL (0.0-0.4); Eosinophils Percent Auto 1.9 % (0-4); Hematocrit 35.5 % (37.0-47.0); Hemoglobin 11.7 g/dl (12.0-16.0); Imm Gran Abs Auto 0.04 X10*3/uL (0.00-0.03); Imm Gran Pct Auto 0.4 % (0.0-0.4); Lymphocytes Absolute Auto 1.7 X10*3/uL (1.2-4.9); Lymphocytes Percent Auto 15.9 % (20-40); Mean Corpuscular Hemoglobin 26.7 pg (27.0-33.0); Mean Corpuscular Volume 80.9 fL (80.0-98.0); Mean Platelet Volume 11.6 fL (9.4-12.3); Monocytes Absolute Auto 0.5 X10*3/uL (0.1-1.2); Monocytes Percent Auto 4.5 % (2-11); Neutrophils Absolute Auto 8.2 x10*3/uL (2.0-8.3); Platelet Count 237 X10*3/uL (160-400); Red Blood Count 4.39 X10*6/uL (4.20-5.50); Red Cell Distribution Width 13.9 % (11.0-16.0); White Blood Count 10.7 X10*3/uL (4.8-10.8)
[2024-11-13 10:03] LABS: IDNOW Serial# 58CA691E; Strep A Nucleic Acid Negative (Negative)
--- OUTSIDE RECORDS SUMMARY | 2024-11-13 10:15 | XMS_ITS | Encounter Summary ---
Author Organization [employer] Address [address] [facility] 7t [place] [address] Care Team Providers Care Turning Machine Operator Helper Name Role Phone Brenda Tovar MD Primary Care Provide r Eugene Jarvis Unavailable Unavailable Reason for Visit * Reason Comments Med Refill Encounter Details Date Type Department Care Team ([facility] st Contact Info) Description 01/29/2023 Refill [facility] MEDICINE [address] [place], [place] [phone] NameRivera MD [address] [place] [address] Hypertension, unspecified type Social History Tobacco Use [...] documented as of this encounter Care Teams Turning Machine Operator Helper Relationship Specialty Start Date End Date Brenda Tovar MD [address] [place] [address] PCP - General Family Medicine 02/16/19 Eugene Jarvis FNP [address] [place] [address] Nurse Practitioner Family Medicine 06/21/23 documented as of this encounter
--- OUTSIDE RECORDS SUMMARY | 2024-11-13 10:15 | XMS_ITS | Clinical Summary ---
Author Organization [facility] Address [address] [place] [address] Care Team Providers Care Casing Crew Pusher Name Role Phone Unavailable Primary Care Provider [...] Health Maintenance Due Date Last Done Comments Anxiety Screening 1968 HPV Screening 1968 Hepatitis C Screening 1968 [...] 09/08/2023 Hypertension Screening (#1) 05/04/2025 Diabetes Screening 04/28/2027 04/28/2024, 1 , 03/28/2024, Additional history exists Lipid Screening 12/09/2027 12/08/2022 Dental FMX/Pano 10/29/2028 10/28/2023, 09/08/2023 Imm-DTaP/Tdap/Td (2 - Td or Tdap) 06/25/2032 022 Imm-Pneumococcal Completed 03/03/2024 [id number] Completed 04/28/2024, 05/27, 04/27/2022, Additional history exists [...] Most Recently Relevant to Health Maintenance Insurance [facility] - DENT[facility]
--- OUTSIDE RECORDS SUMMARY | 2024-11-13 10:15 | XMS_ITS | Encounter Summary ---
Author Organization [employer] Address [address] [facility] 7 [place] [address] Care Team Providers Care Biochemical Engineer Name Role Phone Brenda Tovar MD Primary Care Provide r Eugene Jarvis Unavailable Unavailable Reason for Visit * Reason Comments Med Refill Encounter Details Date Type Department Care Team (Late st Contact Info) Description 04/17/2023 Refill [facility] [address] [place], [place] [phone] Dragan Stoner FNP Constipation, unspecified constipation type [...] documented as of this encounter Care Teams Biochemical Engineer Relationship Specialty Start Date End Date Brenda Tovar MD [address] [place] [address] PCP - General Family Medicine 02/16/19 Eugene Jarvis FNP [address] [facility] [place] [address] Nurse Practitioner Family Medicine 06/21/23 documented as of this encounter
--- OUTSIDE RECORDS SUMMARY | 2024-11-13 10:15 | XMS_ITS | Clinical Summary ---
Author Organization [employer] Address 75 [facility] 7t [place] [address] Care Team Providers Care Local Driver Name Role Phone Brenda Tovar MD Primary [...] Active Continuous Glucose Sensor (Dexcom G7 Sensor) [facility] USE TO MONITOR BLOOD GLUCOSE CONTINUOUSLY, CHANGE [...] mL, 5 Refills, Maintenance, 01/21/24 10:24:00 EDT, [facility], 165, cm, 08/23/23 13:15:00 EST, Height, 84.3... Active Ozempic, 2 MG/DOSE, 8 MG/3ML solution pen-injector Inject 2 mg under the skin every 7 (seven) days. Active clonazePAM (KlonoPIN) 1 MG tablet Take 1 tablet by mouth 2 times daily. Active Easy Touch Pen Knox 31G X 8 MM [facility] [place] USE DIRECTED TO INJECT INSULIN FOUR TIMES DAILY Active perphenazine 4 MG tablet Take 1 tablet by mouth 2 times daily. Active rOPINIRole (Requip) 0.25 MG tabletIndicatio ns:Mood disorder (CMS/HCC) TAKE 1 TABLET BY MOUTH AT BEDTIME 90 tablet Active buPROPion SR (Wellbutrin SR) 100 MG 12 hr tabletIndicatio ns:Mood disorder (CMS/HCC) TAKE 1 TABLET BY MOUTH EVERY DAY 90 tablet 025 Active QUEtiapine (SEROquel) 300 MG tabletIndicatio ns:Mood disorder (CMS/HCC) TAKE 2 TABLETS BY MOUTH EVERY DAY AT BEDTIME 180 tablet 025 Active gabapentin (Neurontin) 800 MG tabletIndicatio ns:Hypertension , unspecified type TAKE 1 TABLET BY MOUTH THREE TIMES DAILY IN THE MORNING, EVENING, AND BEDTIME 90 tablet Active Tirzepatide (Mounjaro) 5 MG/0.5ML solution auto-injectorIn dications:Type 2 diabetes mellitus with hyperglycemia, with long-term current use of insulin ([facility]) Inject 5 mg under the skin 1 (one) time per week. INJECT ONE PEN (=5MG) SUBCUTANEOUSLY ONCE A WEEK DIRECTED 2 mL 2 Active gabapentin (Neurontin) 800 MG tabletIndicatio ns:Hypertension , unspecified type TAKE 1 TABLET BY MOUTH THREE TIMES DAILY IN THE MORNING, EVENING, AND BEDTIME 90 tablet 025 2024 Discontinued Mounjaro 5 MG/0.5ML solution auto-injectorIn dications:Type 2 diabetes mellitus with hyperglycemia, with long-term current use of insulin ([facility]) INJECT ONE PEN (=5MG) SUBCUTANEOUSLY ONCE A WEEK DIRECTED 2 mL 025 2024 Discontinued(R eorder (will not trigger notification to Pharmacy)) Active Problems Problem Noted Date Diagnosed Date [...] Assessment & Plan (02/26/2023 1:28 PM EDT): recreational counselor about increase fiber and water on her diet GI referral Unstable gait 02/26/2023 Assessment & Plan (02/26/2023 11:15 AM EDT): Rolator walker will be prescribed for patient Tardive dyskinesia 02/08/2023 Assessment & Plan (06/21/2023 10:39 AM EST): Symptoms have improved somewhat, ?r/t discontinuation of Benztropine? F/U with Neurologist at [facility] as scheduled. Do not F/U with Neurologist at [facility] ED as needed. Assessment & Plan (05/27/2023 2:47 PM EDT): Unfortunately seems to be progressing. Pt understands the etiology of this, and the probability that it will be chronic. Per [facility], advised to avoid anticholinergics. She will stop Benztropine 2 mg BID. F/U with Neurologist at [facility] as scheduled. Do not F/U with Neurologist at [facility] ED as needed. Assessment & Plan (05/21/2023 [...] today I will prescribe for patient Marty scott I inform patient she can not drive [...] so we will not schedule F/U with [facility]. She agrees with the [...] bedtime. She has started with therapist at [facility], and they are awaiting copies of medical [...] (risk/benefit reviewed). She will F/U ROXANA with [facility] for counseling and med mgt. F/U with Neurologist at [facility] per PCP. Also discussed option of seeking care at [facility] ED if movement disorder is intolerable. She [...] psychiatric medications. She has been referred to [facility] for counseling and med mgt, and has been given their phone number to call and request expedited appointment. She will also F/U with Neurologist at [facility] per PCP. Also discussed option of seeking care at [facility] ED if movement disorder is intolerable. She [...] psychiatric medications. She has been referred to [facility] for counseling and med mgt, and has been given their phone number to call and request expedited appointment. She will also F/U with Neurologist at [facility] per PCP. Also discussed option of seeking care at [facility] ED if movement disorder is intolerable. She [...] psychiatric medications. She has been referred to [facility] for counseling and med mgt, and has been given their phone number to call and request expedited appointment. She will also F/U with Neurologist at [facility] per PCP. Also discussed option of seeking care at [facility] ED if movement disorder is intolerable. She [...] recurrent major depression with psychotic features (CMS/HCC) Patient ready to address current needs Yes Strengths include Willing to engage in services, support from mother. PLAN: 1. Follow up with [facility]: Not recommended for follow-up 2. Patient goal [...] Requesting therapist support and referral to outpatient [facility] for counseling and med mgt. Could also [...] no med changes, but we will request [facility] clinician outreach. F/u with me in 6 [...] Dysuria 06/22/2022 04/28/2024 Glycosuria 06/22/2022 04/28/2024 Encounters Date Type Department Care Team Description 11/13/2024 Orders Only GENERIC EXTERNAL DATA DEPARTMENT Provider, Generic External Data 10/24/2024 Refill [facility] [address] [place] [address] Kimber Almanzar MD Hypertension, unspecified type; Type 2 diabetes mellitus with hyperglycemia, with long-term current use of insulin ([facility]) 10/24/2024 Refill [facility] [address] [place] [address] Brenda Tovar MD Type 2 diabetes mellitus with hyperglycemia, with long-term current use of insulin ([facility]) 09/26/2024 Refill [facility] [address] [place] [address] Kimber Almanzar MD Type 2 diabetes mellitus with hyperglycemia, with long-term current use of insulin ([facility]) 08/25/2024 Refill [facility] [address] [place] [address] Demetra Layton MD Hypertension, unspecified type 08/25/2024 Refill [facility] [address] [place], [place] [phone] Brenda Tovar MD Mood disorder ([facility]); Type 2 diabetes mellitus with hyperglycemia, with long-term current use of insulin ([facility]); Hypertension, unspecified type 08/17/2024 Refill [facility] [address] [place] [address] Brenda Tovar MD Hypertension, unspecified type from Last 3 Months Immunizations Name Administration [...] with others, in a hotel, in a correction, living outside on the street, on a [...] Sigmoidoscopy 1968 Diabetes: Foot Exam 1978 Hepatitis B Vaccines (1 of 3 - [...] on patient's age to complete this topic Hepatitis A Vaccines Aged Out No long er eligible based on patient's age to complete [...] Procedure Name Priority Date/Time Associated Diagnosis Comments CBC WITH AUTO DIFFERENTIAL Routine 11/13/2024 9:39 AM EDT STREP A NUCLEIC ACID Routine 11/13/2024 9:39 AM EDT HEMOGLOBIN A1C Routine 06/30/2024 11:33 AM EST Type 2 diabetes mellitus with hyperglycemia, with long-term current use of insulin ([facility]) ALBUMIN, RANDOM URINE W/CREATININE Routine 03/28/2024 11:30 AM EDT Type 2 diabetes mellitus with hyperglycemia, with long-term current use of insulin ([facility]) LIPID PANEL WITH REFLEX TO DIRECT LDL Routine 03/28/2024 11:11 AM EDT Type 2 diabetes mellitus with hyperglycemia, with long-term current use of insulin ([facility]) ZZZ HISTORICAL HEPATITIS A,B,C PROFILE Routine 09/26/2019 9:47 AM EST from Last 3 Months or Most Recently Relevant to Health Maintenance Results * Strep A Nucleic Acid (11/13/2024 9:39 AM EDT) IDNOW SERIAL# [id number] [facility] Strep A Nucleic Acid Negative Negative [facility] Comment:All test results mus t be correlated with clinical findings.This test has not been evaluated for monitoring treatment ofinfection.Additional follow-up testing using the culture method isrequired if the result is negative and clinical symptomspersist, or in the event of an acute rheumatic feveroutbreak. 11/13/2024 9:39 AM EDT 11/13/2024 9:49 AM EDT us Generic External Data Provider LAB MICROBIOLOGY - GENERAL ORDERABLES Final Result [facility] [address] [place] [address] [phone] * (ABNORMAL) CBC auto differential (11/13/2024 9:39 AM EDT) White Blood Count 10.7 4.8 - 10.8 X10*3/uL [facility] Red Blood Count 4.39 4.20 - 5.50 X10*6/uL [facility] Hemoglobin 11.7(L) 12.0 - 16.0 g/dl [facility] Hematocrit 35.5(L) 37.0 - 47.0 % [facility] Mean Corpuscular Volume 80.9 80.0 - 98.0 fL [facility] Mean Corpuscular Hemoglobin 26.7(L) 27.0 - 33.0 pg [facility] Mean Corpuscular HGB Conc 33.0 31.0 - 35.0 g/dl [facility] Red Cell Distribution Width 13.9 11.0 - 16.0 % [facility] Platelet Count 237 160 - 400 X10*3/uL [facility] Mean Platelet Volume 11.6 9.4 - 12.3 fL [facility] Neutrophils Percent Auto 77.0(H) 45 - 73 % [facility] Imm Gran Pct Auto 0.4 0.0 - 0.4 % [facility] Lymphocytes Percent Auto 15.9(L) 20 - 40 % [facility] Monocytes Percent Auto 4.5 2 - 11 % [facility] Eosinophils Percent Auto 1.9 0 - 4 % [facility] Basophils Percent Auto 0.3 0 - 2 % [facility] NRBC Pct Auto 0.0 0.0 - 0.2 /100WBC [facility] Neutrophils Absolute Auto 8.2 2.0 - 8.3 x10*3/uL [facility] Imm Gran Abs Auto 0.04(H) 0.00 - 0.03 X10*3/uL [facility] Lymphocytes Absolute Auto 1.7 1.2 - 4.9 X10*3/uL [facility] Monocytes Absolute Auto 0.5 0.1 - 1.2 X10*3/uL [facility] Eosinophils Absolute Auto 0.2 0.0 - 0.4 X10*3/uL [facility] Basophils Absolute Auto 0.0 0.0 - 0.2 X10*3/uL [facility] NRBC Abs Auto 0.000 0.0 - 0.012 X10*3/uL [facility] 11/13/2024 9:39 AM EDT 11/13/2024 9:49 AM EDT us Generic External Data Provider LAB BLOOD ORDERAB LES Final Result Performing Organization Address City/[facility]/ZIP Co de Phone Number [facility] [address] [place] [phone] * (ABNORMAL) Hemoglobin A1c (06/30/2024 11:33 AM EST) Hemoglobin A1c 10.6 [facility] Blood Venous blood specimen / Unknown 06/30/2024 11:33 AM EST us Brenda Ojeda MD LAB BLOOD ORDERABLES Final Result Performing Organization Address City/[facility] de Phone Number [facility] [address] [place] [phone] * (ABNORMAL) Albumin, Random Urine W/Creatinine (03/28/2024 11:30 AM EDT) Creatinine, Urine 28.16 mg/dL [facility] Microalbumin Urine 29.0 mg/L [facility] Microalbum Creatinine Ratio Ur 102.9(H) <30 ug/mg cr [facility] Comment:Albumin/Creatinine R atio Reference Ranges: Normal: < 30 ug/mg creatinine Microalbuminuria: 30 - 300 ug/mg creatinineClinical Albuminuria: > 300 ug/mg creatinine Urine (Urine, Random) 03/28/2024 11:30 AM EDT 03/28/2024 1:10 PM EDT us Brenda Ojeda MD LAB URINE ORDERABLES Final Result Performing Organization Address City/[facility] Co de Phone Number [facility] [address] [place] [phone] * (ABNORMAL) Lipid Panel with Reflex to Direct LDL (03/28/2024 11:11 AM EDT) Triglycerides 254(H) <150 mg/dL [facility] Comment:Desirable Triglyceri de: less than 150 mg/dLBorderline High Triglyceride 150-199 mg/dLHigh Triglyceride: 200-499 mg/dLVery High Triglyceride: greater than or equal to 5OO mg/dL Cholesterol 168 <200 mg/dL [facility] Comment:Desirable Cholestero l: less than 200 mg/dLBorderline High Cholesterol: 200-239 mg/dLHigh Cholesterol: greater than 239 mg/dL LDL Cholesterol Calculated 68 <100 mg/dL [facility] Comment:Desirable LDL: less than 100 mg/dLNear Optimal/Above Optimal LDL: 110- 129 mg/dLBorderline High LDL: 130-159 mg/dLHigh LDL: 160-189 mg/dLVery High LDL: greater than or equal to 190 mg/dL HDL Cholesterol 50 >40 mg/dL [facility] Comment:Desirable HDL: great er than 40 mg/dL Note: This HDL assay may give artificially low results in patients with liver disease. Blood 03/28/2024 11:1 1 AM EDT 03/28/2024 1:28 PM EDT Brenda Ojeda MD LAB BLOOD ORDERABLES Final Result Performing Organization Address [facility]/ZIP Co de Phone Number [facility] [address] [place] [phone] * HEPATITIS A,B,C PROFILE (09/26/2019 9:47 AM EST) HEPATITIS B CORE ANTIBODY NONREACTIVE NONREACTIVE [facility] HEPATITIS B INTERPRETATION SEE NOTE [facility] Comment:Negative for Hepatit is B. HEPATITIS B SURFACE ANTIBODY NONREACTIVE NONREACTIVE [facility] Comment:NONREACTIVE: < 8.00 mIU/mL HEPATITIS B SURFACE ANTIGEN NEGATIVE NEGATIVE [facility] HEPATITIS C ANTIBODY NONREACTIVE NONREACTIVE [facility] Comment: Antibodies to HCV not detected; does not exclude early acute HCV infection. 09/26/2019 9:47 AM EST us Historical Provider HISTORICAL/NON ORDERABLE LABS Final Result [facility] [address] [place] [address], from Last 3 Months or Most Recently Relevant to Health Maintenance Insurance [facility] - [facility] Care Teams Local Driver Relationship Specialty Start Date End Date Brenda Tovar MD [address] [place] [phone] PCP - General Family Medicine 02/16/19 Eugene Jarvis FNP [address] [place] [phone] Nurse Practitioner Family Medicine 06/21/23
--- OUTSIDE RECORDS SUMMARY | 2024-11-13 10:15 | XMS_ITS | Encounter Summary ---
Author Organization [employer] Address [address] [facility] 7t [place] [address] Care Team Providers Care Vocational Rehabilitation Consultant Name Role Phone Brenda Tovar MD Primary Care Provide r Eugene Jarvis Unavailable Unavailable Encounter Details Date Type Department Care Team (Late st Contact Info) Description 11/13/2024 Orders Only GENERIC EXTERNAL DATA DEPARTMENT Provider, Generic External Data Social History Tobacco Use Types Packs/Day Years [...] with others, in a hotel, in a nursing home, living outside on the street, on a [...] on file documented as of this encounter Procedures Procedure Name Priority Date/Time Associated Diagnosis Comments STREP A NUCLEIC ACID Routine 11/13/2024 9:39 AM EDT CBC WITH AUTO DIFFERENTIAL Routine 11/13/2024 9:39 AM EDT documented in this encounter Results * Strep A Nucleic Acid (11/13/2024 9:39 AM EDT) IDNOW SERIAL# [id number] [facility] Strep A Nucleic Acid Negative Negative [facility] Comment:All test results mus t be [...] LAB MICROBIOLOGY - GENERAL ORDERABLES Final Result [facility] [address] [place] [phone] * (ABNORMAL) CBC auto differential (11/13/2024 9:39 AM EDT) White Blood Count 10.7 4.8 - 10.8 X10*3/uL [facility] Red Blood Count 4.39 4.20 - 5.50 X10*6/uL [facility] Hemoglobin 11.7(L) 12.0 - 16.0 g/dl [facility] Hematocrit 35.5(L) 37.0 - 47.0 % [facility] Mean Corpuscular Volume 80.9 80.0 - 98.0 fL [facility] Mean Corpuscular Hemoglobin 26.7(L) 27.0 - 33.0 pg [facility] Mean Corpuscular HGB Conc 33.0 31.0 - 35.0 g/dl [facility] Red Cell Distribution Width 13.9 11.0 - 16.0 % [facility] Platelet Count 237 160 - 400 X10*3/uL [facility] Mean Platelet Volume 11.6 9.4 - 12.3 fL [facility] Neutrophils Percent Auto 77.0(H) 45 - 73 % [facility] Imm Gran Pct Auto 0.4 0.0 - 0.4 % [facility] Lymphocytes Percent Auto 15.9(L) 20 - 40 % [facility] Monocytes Percent Auto 4.5 2 - 11 % [facility] Eosinophils Percent Auto 1.9 0 - 4 % [facility] Basophils Percent Auto 0.3 0 - 2 % [facility] NRBC Pct Auto 0.0 0.0 - 0.2 /100WBC [facility] Neutrophils Absolute Auto 8.2 2.0 - 8.3 x10*3/uL [facility] Imm Gran Abs Auto 0.04(H) 0.00 - 0.03 X10*3/uL [facility] Lymphocytes Absolute Auto 1.7 1.2 - 4.9 X10*3/uL [facility] Monocytes Absolute Auto 0.5 0.1 - 1.2 X10*3/uL [facility] Eosinophils Absolute Auto 0.2 0.0 - 0.4 X10*3/uL [facility] Basophils Absolute Auto 0.0 0.0 - 0.2 X10*3/uL [facility] NRBC Abs Auto 0.000 0.0 - 0.012 X10*3/uL [facility] 11/13/2024 9:39 AM EDT 11/13/2024 9:49 AM EDT us Generic External Data Provider LAB BLOOD ORDERAB LES Final Result [facility] [address] [place] [phone] documented in this encounter Visit Diagnoses Not on filedocumented in this encounter Additional Health Concerns Assessment Noted Time PHQ-9 Depression Total Score: 0 03/03/20 24 11:00 AM EDT documented as of this encounter Care Teams Vocational Rehabilitation Consultant Relationship Specialty Start Date End Date Brenda Tovar MD [address] [place] [address] PCP - General Family Medicine 02/16/19 Eugene Jarvis FNP [address] [place] [address] Nurse Practitioner Family Medicine 06/21/23 documented as of this encounter
--- OUTSIDE RECORDS SUMMARY | 2024-11-13 10:15 | XMS_ITS | Encounter Summary ---
Author Organization [employer] Address [address] [place] [address] Care Team Providers Care Die Cutter Name Role Phone Brenda Tovar MD Primary Care Provide r Eugene Jarvis Unavailable Unavailable Encounter Details Date Type Department Care Team ([facility] st Contact Info) Description 01/18/2023 Telephone [facility] [address] [place], [place] [phone] Brenda Tovar MD [address] [place], [place] [phone] Social History Tobacco Use Types Packs/Day Years [...] documented as of this encounter Care Teams Die Cutter Relationship Specialty Start Date End Date Brenda Tovar MD [address] [place] [address] PCP - General Family Medicine 02/16/19 Eugene Jarvis FNP [address] [place] [address] Nurse Practitioner Family Medicine 06/21/23 documented as of this encounter
--- OUTSIDE RECORDS SUMMARY | 2024-11-13 10:15 | XMS_ITS | Encounter Summary ---
Author Organization [employer] Address [address] [facility] 7 [place] [address] Care Team Providers Care Footwear Factory Worker Name Role Phone Brenda Tovar MD Primary Care Provide r Eugene Jarvis Unavailable Unavailable Reason for Visit * Reason Comments Med Refill Encounter Details Date Type Department Care Team ([facility] st Contact Info) Description 03/13/2024 Refill [facility] [address] [place], [place] [phone] Brenda Tovar MD [address] [place] [address] Moderate persistent asthma without complication Social History [...] with others, in a hotel, in a [facility], living outside on the street, on a [...] documented as of this encounter Care Teams Footwear Factory Worker Relationship Specialty Start Date End Date Brenda Tovar MD [address] [place] [address] PCP - General Family Medicine 02/16/19 Eugene Jarvis FNP [address] [place] [address] Nurse Practitioner Family Medicine 06/21/23 documented as of this encounter
--- OUTSIDE RECORDS SUMMARY | 2024-11-13 10:15 | XMS_ITS | Encounter Summary ---
Author Organization [employer] Address [address] [place] [address] Care Team Providers Care Semi Truck Driver Name Role Phone Brenda Tovar MD Primary Care Provide r Eugene Jarvis Unavailable Unavailable Reason for Visit * Reason Comments Med Refill Encounter Details Date Type Department Care Team ([facility] st Contact Info) Description 10/05/2023 Refill [facility] [address] [place] [address] Eugene Jarvis FNP Severe recurrent major depression [...] documented as of this encounter Care Teams Semi Truck Driver Relationship Specialty Start Date End Date Brenda Tovar MD [address] [place] [address] PCP - General Family Medicine 02/16/19 Eugene Jarvis FNP [address] [place] [address] Nurse Practitioner Family Medicine 06/21/23 documented as of this encounter
--- OUTSIDE RECORDS SUMMARY | 2024-11-13 10:15 | XMS_ITS | Encounter Summary ---
Author Organization [employer] Address [address] [place] [address] Care Team Providers Care Personal Property Assessor Name Role Phone Brenda Tovar MD Primary Care Provide r Eugene Jarvis Unavailable Unavailable Reason for Visit * Reason Comments Med Refill Encounter Details Date Type Department Care Team ([facility] st Contact Info) Description 10/06/2023 Refill [facility] [address] [place] [address] Eugene Jarvis FNP Severe recurrent major depression [...] documented as of this encounter Care Teams Personal Property Assessor Relationship Specialty Start Date End Date Brenda Tovar MD [address] [place] [address] PCP - General Family Medicine 02/16/19 Eugene Jarvis FNP [address] [place] [address] Nurse Practitioner Family Medicine 06/21/23 documented as of this encounter
--- OUTSIDE RECORDS SUMMARY | 2024-11-13 10:15 | XMS_ITS | Encounter Summary ---
Author Organization [employer] Address [address] [facility] [address] [place] [address] Care Team Providers Care Spring Fitter Helper Name Role Phone Brenda Tovar MD Primary Care Provide r Eugene Jarvis Unavailable Unavailable Reason for Visit * Reason Comments Med Refill Encounter Details Date Type Department Care Team ([facility] st Contact Info) Description 08/24/[address] [facility] DIABETES/NUTRITION [address] [place] [address] Brenda Tovar MD [address] [place] [address] Social History Tobacco Use Types Packs/Day Years [...] documented as of this encounter Care Teams Spring Fitter Helper Relationship Specialty Start Date End Date Brenda Tovar MD [address] [place] [address] PCP - General Family Medicine 02/16/19 Eugene Jarvis FNP [address] [place] [address] Nurse Practitioner Family Medicine 06/21/23 documented as of this encounter
--- OUTSIDE RECORDS SUMMARY | 2024-11-13 10:15 | XMS_ITS | Encounter Summary ---
Author Organization [employer] Address [address] [facility] [address] [place] [address] Care Team Providers Care Water Maintenance Supervisor Name Role Phone Brenda Tovar MD Primary Care Provide r Eugene Jarvis Unavailable Unavailable Reason for Visit * Reason Comments Med Refill Encounter Details Date Type Department Care Team ([facility] st Contact Info) Description 05/19/2024 Refill [facility] MEDICINE [address] [place], [place] [phone] Mary Clemente MD [address] [place] [address] Moderate persistent asthma without complication Social History [...] with others, in a hotel, in a long-term, living outside on the street, on a [...] documented as of this encounter Care Teams Water Maintenance Supervisor Relationship Specialty Start Date End Date Brenda Tovar MD [address] [place] [address] PCP - General Family Medicine 02/16/19 Eugene Jarvis FNP [address] [place] [address] Nurse Practitioner Family Medicine 06/21/23 documented as of this encounter
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
[2024-11-13 10:29] LABS: Influenza A PCR NEGATIVE (Negative); Influenza B PCR NEGATIVE (Negative); Resp Syncy Virus RNA Qual PCR NEGATIVE (Negative); SARS COV2 PCR INHOUSE NEGATIVE (Negative)
[2024-11-13 10:30] LABS: Alanine Aminotransferase 12 U/L (0-31); Albumin Level 3.9 g/dL (3.5-5.0); Alkaline Phosphatase 128 U/L (39-117); Anion Gap 20 (12-20); Aspartate Amino Transferase 15 U/L (5-31); Blood Urea Nitrogen 26 mg/dL (9-16); Calcium 8.8 mg/dL (8.4-10.2); Carbon Dioxide 21 mmol/L (22-29); Chloride 84 mmol/L (96-108); Creatinine Clr Calc Pharmacy 29.5; Estimated Glomerular Filt Rate 20; Potassium 4.2 mmol/L (3.3-5.1); Sodium 121 mmol/L (135-145); Total Protein 7.4 g/dL (6.5-8.0)
[2024-11-13 10:40] LABS: Bilirubin Total 0.4 mg/dL (0.0-1.0); C Reactive Protein 4.56 mg/dL (< or = 0.50); Glucose Random 1023 mg/dL (60-115)
[2024-11-13 10:54] LABS: Erythrocyte Sedimentation Rate 55 MM/HR (0-20)
[2024-11-13 10:57] LABS: Estimated Average Glucose 306 mg/dL; Hemoglobin A1C 342.7149 umol/L; Hemoglobin A1c % 12.3 % (<6.0); Total Hemoglobin (HGBA1C) 3096.9954 umol/L
[2024-11-13 10:58] LABS: Glucose, Whole Blood > 600 mg/dL (60-115)
[2024-11-13 10:58] LABS: Glucose, Whole Blood > 600 mg/dL (60-115)
[2024-11-13 11:00] LABS: Beta-Hydroxybutyrate 0.29 mmol/L (0.02-0.27)
[2024-11-13 11:01] LABS: Venous Blood Gas Refer to POC result
[2024-11-13 11:03] LABS: VBG Base Excess 1.1 mmol/L; VBG HCO3 27 mmol/L (22-26); VBG pCO2 50 mmHg; VBG pH 7.34 (7.32-7.43); VBG pO2 50 mmHg
[2024-11-13] MEDS: iohexoL 350 MG/ML 100 ML INFUS..BTL IV (11:06)
[2024-11-13] MEDS: Insulin Regular, Human 100 UNIT/ML 10 ML VIAL IVPUSH ×2 (11:09→12:42)
[2024-11-13] MEDS: Lactated Ringers 1,000 ML 999 ML IV ×3 (11:09→12:36)
[2024-11-13 11:46] LABS: Monotest Negative (Negative)
[2024-11-13 12:22] LABS: Glucose, Whole Blood 579 mg/dL (60-115)
[2024-11-13] MEDS: dexAMETHasone sod phosphate 10 MG/ML VIAL IVPUSH (12:33)
[2024-11-13 12:54] LABS: Magnesium 1.3 mg/dL (1.6-2.6)
[2024-11-13 13:09] LABS: Anion Gap 17 (12-20); Blood Urea Nitrogen 24 mg/dL (9-16); Calcium 8.3 mg/dL (8.4-10.2); Carbon Dioxide 20 mmol/L (22-29); Chloride 93 mmol/L (96-108); Creatinine Clr Calc Pharmacy 43.9; Estimated Glomerular Filt Rate 32; Glucose Random 595 mg/dL (60-115); Potassium 4.2 mmol/L (3.3-5.1); Sodium 126 mmol/L (135-145)
[2024-11-13 13:18] VITALS: BP 110/45; PULSE 86; RESP 16; TEMP 36.4; O2SAT 98
[2024-11-13] MEDS: Magnesium Sulfate/H2O 2 GM/50 ML PIGGYBACK IV (13:20)
[2024-11-13 15:29] LABS: Glucose, Whole Blood 401 mg/dL (60-115)
[2024-11-13 15:30] LABS: Appearance Urine Clear; Color Urine Yellow; Glucose Urine UA >=1000 mg/dL (Negative); Leukocyte Esterase Urine Trace (Negative); Nitrite Urine Negative (Negative); PH 5.5 (5.0-9.0); UMIC TRIGGER UACC YES; Urine Blood Negative (Negative); Urine Ketones Negative (Negative); Urine Protein Negative (Neg-Trace)
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
[2024-11-13] MEDS: Throat Lozenge, Medicated LOZENGE 1 LOZENGE MUCOUS MEM (16:13)
[2024-11-13] MEDS: Insulin Lispro 100 UNIT/ML 3 ML VIAL SUBCUT ×4 (16:13→20:14)
[2024-11-13] MEDS: Acetaminophen 325 MG TABLET 650 MG PO (16:13)
[2024-11-13] MEDS: 0.9 % Sodium Chloride 1,000 ML 125 ML IVCONT (16:14)
[2024-11-13 16:27] VITALS: BMI 36.3
[2024-11-13 16:30] VITALS: BP 138/63; PULSE 89; RESP 18; TEMP 36; O2SAT 96
[2024-11-13 16:57] LABS: Bacteria Urine 4+ (None Seen); Hyaline Casts Urine 0-2 /LPF (0-2); RBC Urine 0-2 /HPF (0-2); Squamous Epithelial Cell Urine 0-2 /HPF (0-2); WBC Urine 0-5 /HPF (0-5)
[2024-11-13 17:11] LABS: Osmolality, Serum 298 mosm/kg (281-305)
--- NOTE | 2024-11-13 17:16 | PHA.MEDREC ---
Pharmacy Consult ? Medication Reconciliation Pharmacy has completed the medication reconciliation. Spoke to patient at bedside, poor historian. Unable to name meds unprompted but able to verify from list. Stated she takes 24 units of Tresiba at bedtime.
[2024-11-13 17:32] LABS: Glucose, Whole Blood 387 mg/dL (60-115)
[2024-11-13 19:44] VITALS: BP 126/73; PULSE 97; RESP 18; TEMP 36; O2SAT 98
[2024-11-13 19:52] LABS: Glucose, Whole Blood 434 mg/dL (60-115)
[2024-11-13] MEDS: Insulin Glargine,Hum.rec.anlog 100 UNIT/ML 10 ML VIAL 17 UNIT SUBCUT (20:14)
[2024-11-13] MEDS: Gabapentin 400 MG CAPSULE 800 MG PO (20:16)
[2024-11-13] MEDS: clonazePAM 0.5 MG TABLET PO (20:16)
[2024-11-13] MEDS: QUEtiapine Fumarate 300 MG TABLET 600 MG PO (20:17)
[2024-11-13] MEDS: rOPINIRole HCL 0.25 MG TABLET PO (20:17)
[2024-11-13] MEDS: Mirtazapine 30 MG TABLET PO (20:17)
[2024-11-13] MEDS: DULoxetine HCl 60 MG CAPSULE.DR PO (20:17)
[2024-11-14] MEDS: 0.9 % Sodium Chloride 1,000 ML 125 ML IVCONT ×3 (00:04→16:36)
[2024-11-14 03:25] VITALS: BP 143/67; PULSE 81; RESP 20; TEMP 36.8; O2SAT 96
[2024-11-14 05:49] LABS: MANUAL DIFF FLAG NO
[2024-11-14 05:52] LABS: Basophils Percent Auto 0.1 % (0-2); Eosinophils Percent Auto 0.3 % (0-4); Hematocrit 33.4 % (37.0-47.0); Hemoglobin 11.3 g/dl (12.0-16.0); Imm Gran Abs Auto 0.05 X10*3/uL (0.00-0.03); Imm Gran Pct Auto 0.5 % (0.0-0.4); Lymphocytes Absolute Auto 1.4 X10*3/uL (1.2-4.9); Lymphocytes Percent Auto 13.2 % (20-40); Mean Corpuscular HGB Conc 33.8 g/dl (31.0-35.0); Mean Corpuscular Hemoglobin 26.5 pg (27.0-33.0); Mean Corpuscular Volume 78.4 fL (80.0-98.0); Mean Platelet Volume 11.5 fL (9.4-12.3); Monocytes Absolute Auto 0.3 X10*3/uL (0.1-1.2); Monocytes Percent Auto 2.7 % (2-11); Neutrophils Percent Auto 83.2 % (45-73); Platelet Count 234 X10*3/uL (160-400); Red Blood Count 4.26 X10*6/uL (4.20-5.50); Red Cell Distribution Width 13.3 % (11.0-16.0); White Blood Count 10.8 X10*3/uL (4.8-10.8)
[2024-11-14] MEDS: Omeprazole 20 MG CAPSULE.DR PO (05:55)
[2024-11-14 06:18] LABS: Anion Gap 12 (12-20); Blood Urea Nitrogen 17 mg/dL (9-16); Calcium 8.8 mg/dL (8.4-10.2); Carbon Dioxide 27 mmol/L (22-29); Chloride 102 mmol/L (96-108); Creatinine Clr Calc Pharmacy 65.9; Estimated Glomerular Filt Rate 51; Glucose Random 348 mg/dL (60-115); Potassium 4.4 mmol/L (3.3-5.1); Sodium 137 mmol/L (135-145)
[2024-11-14 07:21] VITALS: BP 148/82; PULSE 74; RESP 18; TEMP 37.1; O2SAT 96
[2024-11-14 08:06] LABS: Glucose, Whole Blood 318 mg/dL (60-115)
[2024-11-14] MEDS: Fluticasone/Vilanterol 200/25 BLST.W.DEV 1 PUFF INHALE (08:12)
[2024-11-14 08:13] VITALS: PULSE 74; RESP 18; O2SAT 96
[2024-11-14] MEDS: Insulin Lispro 100 UNIT/ML 3 ML VIAL SUBCUT ×8 (08:18→21:13)
[2024-11-14] MEDS: Insulin Glargine,Hum.rec.anlog 100 UNIT/ML 10 ML VIAL 10 UNIT SUBCUT ×2 (08:18→21:11)
[2024-11-14] MEDS: Gabapentin 400 MG CAPSULE 800 MG PO ×3 (08:18→21:09)
[2024-11-14] MEDS: buPROPion HCl XL 150 MG TAB.ER.24H PO (08:19)
[2024-11-14] MEDS: Aspirin Enteric Coated 81 MG TABLET.DR PO (08:19)
[2024-11-14] MEDS: DULoxetine HCl 60 MG CAPSULE.DR PO ×2 (08:19→21:08)
[2024-11-14] MEDS: clonazePAM 0.5 MG TABLET PO ×2 (08:19→21:09)
[2024-11-14] MEDS: Atorvastatin Calcium 80 MG TABLET PO (08:19)
[2024-11-14] MEDS: Acetaminophen 325 MG TABLET 650 MG PO (08:19)
[2024-11-14] MEDS: Loratadine 10 MG TABLET PO (08:19)
[2024-11-14 08:26] VITALS: BP 148/82
[2024-11-14] MEDS: cloNIDine HCL 0.1 MG TABLET PO (08:26)
--- NOTE | 2024-11-14 10:47 | P.PNIM_ITS ---
Subjective Subjective Date of Service: 11/14/24 Interval History: seen and evaluated feels better sore throat improving, tolerating PO Glucose level trending down but still elevated no other events Review of Systems Review of Systems: Yes all other systems are reviewed and are negative Physical Exam 2 Vital Signs: Vital Signs: Last Vital Signs Temp 98.7 F 11/14/24 07:21 Pulse 74 11/14/24 08:13 Resp 18 11/14/24 08:13 BP 148/82 H 11/14/24 08:26 Pulse Ox 96 11/14/24 07:21 O2 Del Method Room Air 11/14/24 07:21 BMI result Body Mass Index 36.3 Const: Other: Constitutional : interactive, not in distress Cardiovascular : no JVP, no lower extremity edema Respiratory : bilateral chest movement, not in resp distress Gastrointestinal: soft, lax, Non tender Skin : Warm, Dry Neurological : Alert & oriented , No focal deficit Objective Data Active Medications Acetaminophen (Acetaminophen 325 Mg Tablet) 650 mg PO Q6H PRN PRN Reason: Pain, Mild 1-3,fever,headache Last Admin: 11/14/24 08:19 Dose: 650 mg Documented By: ARCHANA Albuterol Sulfate (Albuterol Sulfate 90 Mcg 8 Gm Inhaler) 2 puff INHALE Q4H PRN PRN Reason: Wheezing Aspirin (Aspirin Enteric Coated 81 Mg Tablet.) 81 mg PO DAILY [facility] Last Admin: 11/14/24 08:19 Dose: 81 mg Documented By: ARCHANA Atorvastatin Calcium (Atorvastatin Calcium 80 Mg Tablet) 80 mg PO DAILY [facility] Last Admin: 11/14/24 08:19 Dose: 80 mg Documented By: ARCHANA Bupropion HCl (Bupropion Hcl Xl 150 Mg Tab.Er.24h) 150 mg PO DAILY [facility] Last Admin: 11/14/24 08:19 Dose: 150 mg Documented By: ARCHANA Calcium Carbonate (Calcium Carbonate 750 Mg Tab.Chew) 750 mg PO Q4H PRN PRN Reason: Heartburn Clonazepam (Clonazepam 0.5 Mg Tablet) 0.5 mg PO BID [facility] Last Admin: 11/14/24 08:19 Dose: 0.5 mg Documented By: ARCHANA Clonidine HCl (Clonidine Hcl 0.1 Mg Tablet) 0.1 mg PO TID PRN; Protocol PRN Reason: Anxiety Last Admin: 11/14/24 08:26 Dose: 0.1 mg Documented By: ARCHANA Dextrose (Dextrose 50 % 25 Gm/50 Ml Syringe) 25 gm IVPUSH Q15M PRN; Protocol PRN Reason: per Hypoglycemia Standing Ord. Duloxetine HCl (Duloxetine Hcl 60 Mg Capsule.Dr) 60 mg PO BID [facility] Last Admin: 11/14/24 08:19 Dose: 60 mg Documented By: ARCHANA Fluticasone Propionate (Fluticasone Propionate Nasal 16 Gm [place]) 2 spray NOSTRIL-B BID PRN PRN Reason: Allergic Symptoms Fluticasone/Vilanterol (Fluticasone/Vilanterol 200/25 Blst.W.Dev) 1 puff INHALE RDAILY [facility] Last Admin: 11/14/24 08:12 Dose: 1 puff Documented By: FREEMAN Gabapentin (Gabapentin 400 Mg Capsule) 800 mg PO TID [facility] Last Admin: 11/14/24 08:18 Dose: 800 mg Documented By: ARCHANA Glucose (Glucose Gel 15 Gm Gel..Gram.) 15 gm PO Q15M PRN; Protocol PRN Reason: per Hypoglycemia Standing Ord. Sodium Chloride (Ns) 1,000 mls @ 125 mls/hr IVCONT .Q8H [facility] Last Admin: 11/14/24 08:20 Dose: 125 mls/hr Documented By: ARCHANA Insulin Glargine (Insulin Glargine,Hum.Rec.Anlog 100 Unit/Ml 10 Ml Vial) 10 unit SUBCUT DAILY [facility] Last Admin: 11/14/24 08:18 Dose: 10 unit Documented By: ARCHANA Insulin Glargine (Insulin Glargine,Hum.Rec.Anlog 100 Unit/Ml 10 Ml Vial) 17 unit SUBCUT BEDTIME [facility] Insulin Human Lispro (Insulin Lispro 100 Unit/Ml 3 Ml Vial) 0 unit SUBCUT QIDACHS [facility]; Protocol Last Admin: 11/14/24 08:18 Dose: 8 unit Documented By: ARCHANA Insulin Human Lispro (Insulin Lispro 100 Unit/Ml 3 Ml Vial) 5 unit SUBCUT QIDACHS [facility] Last Admin: 11/14/24 08:18 Dose: 5 unit Documented By: ARCHANA Loratadine (Loratadine 10 Mg Tablet) 10 mg PO DAILY [facility] Last Admin: 11/14/24 08:19 Dose: 10 mg Documented By: ARCHANA Magnesium Hydroxide (Milk Of Magnesia 30 Ml Oral.Susp) 30 ml PO DAILY PRN PRN Reason: Constipation Melatonin (Melatonin 3 Mg Tablet) 6 mg PO BEDTIME PRN PRN Reason: Insomnia Metformin HCl (Metformin Hcl Er 500 Mg Tab.Er.24h) 1,000 mg PO BID [facility] Mirtazapine (Mirtazapine 30 Mg Tablet) 30 mg PO BEDTIME [facility] Last Admin: 11/13/24 20:17 Dose: 30 mg Documented By: SIM Omeprazole (Omeprazole 20 Mg Capsule.Dr) 20 mg PO DAILY@0630 [facility] Last Admin: 11/14/24 05:55 Dose: 20 mg Documented By: SIM Quetiapine Fumarate (Quetiapine Fumarate 300 Mg Tablet) 600 mg PO BEDTIME [facility] Last Admin: 11/13/24 20:17 Dose: 600 mg Documented By: SIM Ropinirole HCl (Ropinirole Hcl 0.25 Mg Tablet) 0.25 mg PO BEDTIME [facility] Last Admin: 11/13/24 20:17 Dose: 0.25 mg Documented By: SIM Sodium Chloride (0.9 % Sodium Chloride Flush 3 Ml Syringe) 3 ml IVFLUSH QSHIFT [facility] Last Admin: 11/14/24 07:38 Dose: Not Given Documented By: ARCHANA Non-Admin Reason: IV Running Labs 11/14/24 05:25 11/14/24 05:25 Labs: Laboratory Results - last 24 hr 11/13/24 11/13/24 11/13/24 09:39 10:45 10:51 MCV MCH MCHC RDW Plt Count MPV Immature Gran % (Auto) Neut % (Auto) Lymph % (Auto) [place] % (Auto) Eos % (Auto) Baso % (Auto) Lymph # (Auto) [place] # (Auto) Eos # (Auto) Baso # (Auto) Abs Immat Gran (auto) Absolute Neuts (auto) Absolute Nucleated RBC Nucleated RBC % (auto) ESR 55 H VBG pH VBG pCO2 VBG pO2 VBG HCO3 VBG O2 Saturation VBG Base Excess Anion Gap Estim Creat Clear Calc Estimated GFR POC Glucose > 600 H* > 600 H* Random Glucose Estimat Average Glucose 306 Hemoglobin A1c % 12.3 H Osmolality Calcium Magnesium 1.3 L* Beta-Hydroxybutyrate 0.29 H Urine Color Urine Appearance Urine pH Ur Specific [place] Urine Protein Urine Glucose (UA) Urine Ketones Urine Blood Urine Nitrite Ur Leukocyte Esterase Urine RBC Urine WBC Ur Squamous Epith Cells Urine Bacteria Hyaline Casts Monoscreen 11/13/24 11/13/24 11/13/24 10:53 10:59 12:15 MCV MCH MCHC RDW Plt Count MPV Immature Gran % (Auto) Neut % (Auto) Lymph % (Auto) [place] % (Auto) Eos % (Auto) Baso % (Auto) Lymph # (Auto) [place] # (Auto) Eos # (Auto) Baso # (Auto) Abs Immat Gran (auto) Absolute Neuts (auto) Absolute Nucleated RBC Nucleated RBC % (auto) ESR VBG pH 7.34 VBG pCO2 50 VBG pO2 50 VBG HCO3 27 H VBG O2 Saturation 78.0 VBG Base Excess 1.1 Anion Gap Estim Creat Clear Calc Estimated GFR POC Glucose 579 H* Random Glucose Estimat Average Glucose Hemoglobin A1c % Osmolality Calcium Magnesium Beta-Hydroxybutyrate Urine Color Urine Appearance Urine pH Ur Specific [place]red Urine Protein Urine Glucose (UA) Urine Ketones Urine Blood Urine Nitrite Ur Leukocyte Esterase Urine RBC Urine WBC Ur Squamous Epith Cells Urine Bacteria Hyaline Casts Monoscreen Negative 11/13/24 11/13/24 11/13/24 12:49 15:20 15:23 MCV MCH MCHC RDW Plt Count MPV Immature Gran % (Auto) Neut % (Auto) Lymph % (Auto) [place] % (Auto) Eos % (Auto) Baso % (Auto) Lymph # (Auto) [place] # (Auto) Eos # (Auto) Baso # (Auto) Abs Immat Gran (auto) Absolute Neuts (auto) Absolute Nucleated RBC Nucleated RBC % (auto) ESR VBG pH VBG pCO2 VBG pO2 VBG HCO3 VBG O2 Saturation VBG Base Excess Anion Gap 17 Estim Creat Clear Calc 43.9 Estimated GFR 32 POC Glucose 401 H* Random Glucose 595 H* Estimat Average Glucose Hemoglobin A1c % Osmolality 298 Calcium 8.3 L Magnesium Beta-Hydroxybutyrate Urine Color Yellow Urine Appearance Clear Urine pH 5.5 Ur Specific Kindred 1.010 Urine Protein Negative Urine Glucose (UA) >=1000 H Urine Ketones Negative Urine Blood Negative Urine Nitrite Negative Ur Leukocyte Esterase Trace H Urine RBC 0-2 Urine WBC 0-5 Ur Squamous Epith Cells 0-2 Urine Bacteria 4+ Hyaline Casts 0-2 Monoscreen 11/13/24 11/13/24 11/14/24 17:27 19:46 05:25 MCV 78.4 L MCH 26.5 L MCHC 33.8 RDW 13.3 Plt Count 234 MPV 11.5 Immature Gran % (Auto) 0.5 H Neut % (Auto) 83.2 H Lymph % (Auto) 13.2 L Christian % (Auto) 2.7 Eos % (Auto) 0.3 Baso % (Auto) 0.1 Lymph # (Auto) 1.4 [place] # (Auto) 0.3 Eos # (Auto) 0.0 Baso # (Auto) 0.0 Abs Immat Gran (auto) 0.05 H Absolute Neuts (auto) 9.0 H Absolute Nucleated RBC 0.000 Nucleated RBC % (auto) 0.0 ESR VBG pH VBG pCO2 VBG pO2 VBG HCO3 VBG O2 Saturation VBG Base Excess Anion Gap 12 Estim Creat Clear Calc 65.9 Estimated GFR 51 POC Glucose 387 H* 434 H* Random Glucose 348 H Estimat Average Glucose Hemoglobin A1c % Osmolality Calcium 8.8 D Magnesium Beta-Hydroxybutyrate Urine Color Urine Appearance Urine pH Ur Specific [place] Urine Protein Urine Glucose (UA) Urine Ketones Urine Blood Urine Nitrite Ur Leukocyte Esterase Urine RBC Urine WBC Ur Squamous Epith Cells Urine Bacteria Hyaline Casts Monoscreen 11/14/24 07:25 MCV MCH MCHC RDW Plt Count MPV Immature Gran % (Auto) Neut % (Auto) Lymph % (Auto) [place] % (Auto) Eos % (Auto) Baso % (Auto) Lymph # (Auto) [place] # (Auto) Eos # (Auto) Baso # (Auto) Abs Immat Gran (auto) Absolute Neuts (auto) Absolute Nucleated RBC Nucleated RBC % (auto) ESR VBG pH VBG pCO2 VBG pO2 VBG HCO3 VBG O2 Saturation VBG Base Excess Anion Gap Estim Creat Clear Calc Estimated GFR POC Glucose 318 H Random Glucose Estimat Average Glucose Hemoglobin A1c % Osmolality Calcium Magnesium Beta-Hydroxybutyrate Urine Color Urine Appearance Urine pH Ur Specific Kindred Urine Protein Urine Glucose (UA) Urine Ketones Urine Blood Urine Nitrite Ur Leukocyte Esterase Urine RBC Urine WBC Ur Squamous Epith Cells Urine Bacteria Hyaline Casts Monoscreen Assessment and Plan (1) Mouth swelling: Status: Acute (2) JOE (acute kidney injury): Status: Acute (3) Acute hyperglycemia: Status: Acute (4) Hyperlipidemia, unspecified: Status: Acute Plan 54 year old female with insulin dependent type 2 diabetes, obstructive sleep apnea, restless leg syndrome, high cholesterol, hypertension, fibromyalgia, migraines, and asthma admitted for HHS and JOE Severe hyperglyemia with uncontrolled type 2 diabetes Insulin pump at home and has been off for 1 week as she does not have all supplies she needs. have been using Lantus & SSI but poor control hgb a1c 12.3% Continue IVF until better Flu control Give 10 units Lantus now Increase night dose to 20 standing 5 units lispro plus SSI Restart metformin POC glucose, diabetic diet Acute kidney injury improving Continue IVF hold nephrotoxins Follow renal function/lytes Pseudo hyponatremia resolved Follow lytes Acute hypomagnesemia Repleted, follow lytes Acute pharyngitis Negative for strep, COVID-19, RSV, influenza. CT neck soft tissue shows peritonsillar swelling, no abscess Likely viral in nature versus related to xerostomia from hyperglycemia P.o. fluids, warm salt water gargles, throat lozenges MALLIKA cpap HLD statin HTN hold lisinopril in setting of joe Unspecified asthma continue home inhalers, albuterol prn gerd ppi Mood disorder/fibromyalgia continue home meds DVT prophylaxis- lovenox Full code pt requires inpt stay overnight due to joe r/t severe hyperglycemia which will require iv fluid resuscitation and close monitoring renal function electrolyte levels as well as close monitoring of glucose Quality Stroke Does the patient have a stroke diagnosis?: No VTE Prior VTE?: No VTE Risk Level:: Medical - moderate - high VTE Device Contraindication: Treatment Not Indicated VTE Drug Contraindication: N/A - Med Ordered
[2024-11-14 11:14] LABS: Glucose, Whole Blood 318 mg/dL (60-115)
[2024-11-14] MEDS: Albuterol Sulfate 90 MCG 8 GM INHALER 2 PUFF INHALE (13:57)
[2024-11-14 15:03] VITALS: BP 131/63; PULSE 81; RESP 18; TEMP 36.1; O2SAT 96
--- NOTE | 2024-11-14 16:14 | MHC.CM.PN ---
IMM 11/14/24 DX Hyperglycemia +JOE Lives with her s.o. + step son She has a SETUP OPERATOR for assist with ADLS [employer] is the payer DME Roll[employer] and cane She will transport via [facility] to home at discharge DP home resume death claim clerk services transport [facility]
[2024-11-14 16:21] LABS: Glucose, Whole Blood 265 mg/dL (60-115)
[2024-11-14 19:16] VITALS: BP 147/72; PULSE 86; RESP 18; TEMP 36; O2SAT 96
[2024-11-14 19:47] LABS: Glucose, Whole Blood 321 mg/dL (60-115)
[2024-11-14] MEDS: Mirtazapine 30 MG TABLET PO (21:10)
[2024-11-14] MEDS: rOPINIRole HCL 0.25 MG TABLET PO (21:10)
[2024-11-14] MEDS: QUEtiapine Fumarate 300 MG TABLET 600 MG PO (21:10)
[2024-11-14] MEDS: Insulin Glargine,Hum.rec.anlog 100 UNIT/ML 10 ML VIAL 17 UNIT SUBCUT (21:14)
[2024-11-15] MEDS: 0.9 % Sodium Chloride 1,000 ML 125 ML IVCONT ×2 (00:32→08:30)
[2024-11-15 03:16] VITALS: BP 159/77; PULSE 86; RESP 20; TEMP 36.3; O2SAT 93
[2024-11-15] MEDS: Omeprazole 20 MG CAPSULE.DR PO (06:07)
[2024-11-15 06:59] LABS: MANUAL DIFF FLAG NO
[2024-11-15 07:06] LABS: Basophils Percent Auto 0.3 % (0-2); Eosinophils Absolute Auto 0.3 X10*3/uL (0.0-0.4); Hematocrit 33.8 % (37.0-47.0); Hemoglobin 10.8 g/dl (12.0-16.0); Imm Gran Abs Auto 0.02 X10*3/uL (0.00-0.03); Imm Gran Pct Auto 0.3 % (0.0-0.4); Lymphocytes Absolute Auto 2.2 X10*3/uL (1.2-4.9); Lymphocytes Percent Auto 35.2 % (20-40); Mean Corpuscular Hemoglobin 26.1 pg (27.0-33.0); Mean Corpuscular Volume 81.6 fL (80.0-98.0); Mean Platelet Volume 11.5 fL (9.4-12.3); Monocytes Absolute Auto 0.3 X10*3/uL (0.1-1.2); Monocytes Percent Auto 5.1 % (2-11); Neutrophils Absolute Auto 3.4 x10*3/uL (2.0-8.3); Neutrophils Percent Auto 55.1 % (45-73); Platelet Count 209 X10*3/uL (160-400); Red Blood Count 4.14 X10*6/uL (4.20-5.50); Red Cell Distribution Width 13.7 % (11.0-16.0); White Blood Count 6.3 X10*3/uL (4.8-10.8)
[2024-11-15 07:18] LABS: Anion Gap 12 (12-20); Blood Urea Nitrogen 11 mg/dL (9-16); Calcium 8.3 mg/dL (8.4-10.2); Carbon Dioxide 27 mmol/L (22-29); Chloride 106 mmol/L (96-108); Creatinine Clr Calc Pharmacy 84.1; Estimated Glomerular Filt Rate > 60; Glucose Random 210 mg/dL (60-115); Potassium 3.8 mmol/L (3.3-5.1); Sodium 141 mmol/L (135-145)
[2024-11-15 07:21] VITALS: BP 155/72; PULSE 88; RESP 20; TEMP 36; O2SAT 95
[2024-11-15 07:34] LABS: Glucose, Whole Blood 246 mg/dL (60-115)
[2024-11-15 07:41] VITALS: PULSE 88; RESP 20; O2SAT 97
[2024-11-15] MEDS: Fluticasone/Vilanterol 200/25 BLST.W.DEV 1 PUFF INHALE (07:41)
[2024-11-15] MEDS: buPROPion HCl XL 150 MG TAB.ER.24H PO (08:28)
[2024-11-15] MEDS: clonazePAM 0.5 MG TABLET PO (08:28)
[2024-11-15] MEDS: Aspirin Enteric Coated 81 MG TABLET.DR PO (08:28)
[2024-11-15] MEDS: Loratadine 10 MG TABLET PO (08:28)
[2024-11-15] MEDS: Insulin Lispro 100 UNIT/ML 3 ML VIAL SUBCUT ×2 (08:28→08:29)
[2024-11-15] MEDS: Gabapentin 400 MG CAPSULE 800 MG PO (08:28)
[2024-11-15] MEDS: Atorvastatin Calcium 80 MG TABLET PO (08:28)
[2024-11-15] MEDS: DULoxetine HCl 60 MG CAPSULE.DR PO (08:28)
[2024-11-15] MEDS: Insulin Glargine,Hum.rec.anlog 100 UNIT/ML 10 ML VIAL 10 UNIT SUBCUT (08:29)
--- NOTE | 2024-11-15 10:25 | P.DS_ITS ---
DS: Providers Provider Date of Service: 11/15/24 Date of admission: 11/13/24 15:28 Date of discharge: 11/15/24 Primary care physician: Brenda Ojeda MD DS: Diagnosis Discharge Diagnosis (1) Mouth swelling: Status: Acute (2) JOE (acute kidney injury): Status: Acute (3) Acute hyperglycemia: Status: Acute (4) Hyperlipidemia, unspecified: Status: Acute DS: Summary Hospital Course Hospital Course: from initial hpi: 54 year old female with insulin dependent type 2 diabetes, obstructive sleep apnea, restless legs syndrome, high cholesterol, hypertension, fibromyalgia, migraines presented to the ED earlier today for evaluation of sore throat radiating to the neck and ears bilaterally as well as painful swallowing ongoing for several days. She has also been endorsing polydipsia and polyuria. No fevers, chills, congestion, abdominal pain, nausea, vomiting, diarrhea, cough, ear pain, sinus pressure, shortness of breath, chest pain. She does tell me she is following with endocrinology but has not yet received her CGM. She also uses insulin but does not have a glucometer so has been under dosing her insulin at is not taking her long-acting insulin. She states she does feel fatigued with severe dry mouth, but no confusion. In the ED, vitals stable. Negative for COVID-19, RSV, influenza. CT of the soft tissues of the neck only revealed some adenoidal swelling and palatine tonsillar swelling. No leukocytosis. Has a mild anemia with H/H11.7/35.5%. Random glucose on arrival was 1023, POC >600. On arrival, sodium 121, chloride 84, CO2 21. Creatinine 2.46, baseline around 0.81, magnesium 1.3. Following IV fluid administration and a total of 10 units of regular insulin, random glucose improved to 595 and creatinine improved to 1.65 with sodium 126, chloride 93, CO2 20. On admission, POC for 401. The patient did also receive dexamethasone 10 mg. hospital course: Patient was admitted for diabetes with severe hyperglycemia due to malfunctioning insulin pump. She was put on Lantus and sliding scale sugars improved. She will be discharged home. Patient states that her insulin pump is now working and she has a medications. Noted to have acute kidney injury on admission which resolved with IV fluids. Acute hypomagnesemia was replaced. Acute pharyngitis was negative for strep, will be treated symptomatically. For MALLIKA continued on CPAP. For hyperlipidemia continue on statin. For hypertension lisinopril held during admission due to acute kidney injury will be restarted on discharge. For obesity weight loss recommended. For unspecified asthma we will continue home inhalers. For GERD continued on PPI. For mood disorder/fibromyalgia was continued on Cymbalta. Patient is feeling better will be discharged home. Time Attestation Discharge Coordination Time (in mins): 34 Quality: Safe Use of Opioids Does Pt have an Active Cancer Diagnosis on the Problem List?: No Quality: Stroke Does the patient have a stroke diagnosis?: No Physical Exam Vital Signs: Vital Signs: Last Vital Signs Temp 96.8 F 11/15/24 07:21 Pulse 88 11/15/24 07:41 Resp 20 11/15/24 07:41 BP 155/72 H 11/15/24 07:21 Pulse Ox 95 11/15/24 07:21 O2 Del Method Room Air 11/15/24 07:21 BMI result Body Mass Index 36.3 General: AO X 3, no acute distress Resp: CTA bilateral, no accessory muscles used CVS: S1,S2,RRR GI: soft, non tender, non distended Neuro: motor grossly intact, alert Psych: appropriate affect, appropriate insight DS: Data Data Completed and Pending Labs on day of discharge: Laboratory Results - last 24 hr 11/14/24 11/14/24 11/14/24 11:06 16:04 19:21 WBC RBC Hgb Hct MCV MCH MCHC RDW Plt Count MPV Immature Gran % (Auto) Neut % (Auto) Lymph % (Auto) [place] % (Auto) Eos % (Auto) Baso % (Auto) Lymph # (Auto) [place] # (Auto) Eos # (Auto) Baso # (Auto) Abs Immat Gran (auto) Absolute Neuts (auto) Absolute Nucleated RBC Nucleated RBC % (auto) Sodium Potassium Chloride Carbon Dioxide Anion Gap BUN Creatinine Estim Creat Clear Calc Estimated GFR POC Glucose 318 H 265 H 321 H Random Glucose Calcium 11/15/24 11/15/24 05:30 07:25 WBC 6.3 RBC 4.14 L Hgb 10.8 L Hct 33.8 L MCV 81.6 MCH 26.1 L MCHC 32.0 RDW 13.7 Plt Count 209 MPV 11.5 Immature Gran % (Auto) 0.3 Neut % (Auto) 55.1 Lymph % (Auto) 35.2 [place] % (Auto) 5.1 Eos % (Auto) 4.0 Baso % (Auto) 0.3 Lymph # (Auto) 2.2 [place] # (Auto) 0.3 Eos # (Auto) 0.3 Baso # (Auto) 0.0 Abs Immat Gran (auto) 0.02 Absolute Neuts (auto) 3.4 Absolute Nucleated RBC 0.000 Nucleated RBC % (auto) 0.0 Sodium 141 Potassium 3.8 Chloride 106 Carbon Dioxide 27 Anion Gap 12 BUN 11 Creatinine 0.87 Estim Creat Clear Calc 84.1 Estimated GFR > 60 POC Glucose 246 H Random Glucose 210 H Calcium 8.3 L Discharge Plan Discharge Anticipated Discharge Date/Time: 11/15/24 10:21 Patient Disposition: Home, Self-Care Discharge Diagnosis: hyperglycemia, joe Referrals: Brenda Tovar MD [Primary Care Provider] - 1 Week Discharge Medications: Continued albuterol sulfate 90 mcg/actuation HFA aerosol inhaler 2 puff PO Q4H PRN (Reason: Wheezing) gabapentin 800 mg tablet 1 tab PO TID ropinirole 0.25 mg tablet 1 tab PO BEDTIME atorvastatin 80 mg tablet 80 mg PO DAILY lisinopril 20 mg tablet 20 mg PO DAILY metformin 500 mg tablet extended release 24 hr 1,000 mg PO BID cetirizine 10 mg tablet 10 mg PO DAILY omeprazole 20 mg capsule,delayed release(DR/EC) 20 mg PO DAILY@0630 fluticasone propionate 50 mcg/actuation spray,suspension 2 spray intranasal BID PRN (Reason: Allergic Symptoms) duloxetine 60 mg capsule,delayed release(DR/EC) 60 mg PO BID Fiasp U-100 Insulin 100 unit/mL solution See Rx Instructions .ROUTE .COMPLEX Rx Instructions: to be used in patient pump, up to 120 units daily clonazepam 0.5 mg tablet 0.5 mg PO BID (DME) blood-glucose meter Kit See Rx Instructions .ROUTE .MEDSUPPLY Qty: 1 Rx Instructions: As directed aspirin 81 mg tablet,delayed release (DR/EC) 81 mg PO DAILY (DME) FreeStyle Lite Strips Strip See Rx Instructions .ROUTE .MEDSUPPLY Qty: 10 Rx Instructions: As directed (DME) lancets 28 gauge misc See Rx Instructions topical TID Qty: 100 Rx Instructions: As directed (DME) pen needle, diabetic 31 gauge x 3/16 needle See Rx Instructions .ROUTE .MEDSUPPLY Qty: 50 Rx Instructions: As directed clonidine HCl 0.1 mg tablet 0.1 mg PO TID PRN (Reason: Anxiety) (DME) lancets [TRUEplus Lancets] 33 gauge misc See Rx Instructions .ROUTE .MEDSUPPLY Qty: 100 Rx Instructions: As directed (DME) Omnipod Dash Pods (Gen 4) Cartridge See Rx Instructions subcut .MEDSUPPLY Qty: 5 Rx Instructions: As directed doxepin 100 mg capsule 100 mg PO BEDTIME quetiapine 300 mg tablet 600 mg PO BEDTIME mirtazapine 30 mg tablet 30 mg PO BEDTIME fluticasone propion-salmeterol [AirDuo RespiClick] 232-14 mcg/actuation aerosol powdr breath activated 1 inh inhalation BID Qty: 1 6RF bupropion HCl 100 mg tablet sustained-release 12 hr 100 mg PO DAILY tirzepatide [Mounjaro] 7.5 mg subcut WE@0900 insulin degludec [Tresiba FlexTouch U-100] 100 unit/mL (3 mL) insulin pen 24 unit subcut BEDTIME Discharge Orders: Discharge Order (Routine); Ordered 11/15/24 Ordered By: Sukhdeep Sorto Diet: Advance to usual diet Activity on Discharge: As tolerated Stand Alone Forms: Patient Portal Discharge page Print Language: Iraqi Care Plan Goals: recovery, manage DM Health Concerns: dM Plan of Treatment: continue pump, monitor sugars Assessment: see above
--- NOTE | 2024-11-15 10:28 | MHC.CM.PN ---
IMM 11/14/24 Patient admitted with hyperglycemia. She did not have the medication for her insulin pump. She is discharged to home today. PERIOPERATIVE NURSE services will resume. A prescription for insulin has been provided. Patient will transport to home via [facility].
== END 2024-11-15 10:42 | disposition home or self-care (01) | DRG 920 ==
LOC: HO.ED 13:43 → HO.EDOVER 15:39 → HO.S3 15:55
PROVIDERS: Physician Assistant; Student in an Organized Health Care Education/Training Program; Admitting Provider Physician Assistant; Emergency Provider Emergency Medicine; PCP Internal Medicine; Visit Provider Internal Medicine
DX: T85.694A Other mechanical complication of insulin pump, initial encounter (principal); N17.9 Acute kidney failure, unspecified; J02.8 Acute pharyngitis due to other specified organisms; E11.65 Type 2 diabetes mellitus with hyperglycemia; F17.210 Nicotine dependence, cigarettes, uncomplicated; E78.5 Hyperlipidemia, unspecified; G47.33 Obstructive sleep apnea (adult) (pediatric); E86.0 Dehydration; E83.42 Hypomagnesemia; Z20.822 Contact with and (suspected) exposure to COVID-19; K11.7 Disturbances of salivary secretion; Z71.6 Tobacco abuse counseling; Z79.4 Long term (current) use of insulin; Z79.82 Long term (current) use of aspirin; Z79.84 Long term (current) use of oral hypoglycemic drugs; Z79.899 Other long term (current) drug therapy
CPT/HCPCS: 0241U; 36415; 70491; 80048; 80053; 81001; 81003; 82010; 82803; 82947; 83036; 83735; 83930; 85025; 85652; 86140; 86308; 87651; 94640; 99285; J1100; J3475; J7120; Q9967

== ENCOUNTER → 2024-11-13 10:05 | Outpatient (BNV) | payer OTHER, SELFPAY | PROVIDERS: Emergency Provider Emergency Medicine; PCP Internal Medicine; Visit Provider Radiology Vascular & Interventional Radiology | DX: J34.9 Unspecified disorder of nose and nasal sinuses (principal) | CPT/HCPCS: 70491 ==

== ENCOUNTER → 2024-11-13 15:28 | Outpatient (BNV) | payer OTHER, SELFPAY | PROVIDERS: Admitting Provider Physician Assistant; Emergency Provider Emergency Medicine; PCP Internal Medicine; Visit Provider Student in an Organized Health Care Education/Training Program | DX: R22.0 Localized swelling, mass and lump, head (principal); N17.9 Acute kidney failure, unspecified; R73.9 Hyperglycemia, unspecified; E78.5 Hyperlipidemia, unspecified | CPT/HCPCS: 99223; 99233; 99239 ==

== ENCOUNTER 2024-11-15 10:47 | Outpatient (REF) | payer OTHER, SELFPAY ==
[2024-11-15 12:02] LABS: Estimated Average Glucose 306 mg/dL; Hemoglobin A1C 334.1265 umol/L; Hemoglobin A1c % 12.3 % (<6.0); Total Hemoglobin (HGBA1C) 3024.9842 umol/L
[2024-11-15 12:23] LABS: Anion Gap 12 (12-20); Blood Urea Nitrogen 10 mg/dL (9-16); Calcium 8.3 mg/dL (8.4-10.2); Carbon Dioxide 26 mmol/L (22-29); Chloride 104 mmol/L (96-108); Estimated Glomerular Filt Rate > 60; Glucose Random 288 mg/dL (60-115); Potassium 4.3 mmol/L (3.3-5.1); Sodium 138 mmol/L (135-145)
--- OUTSIDE RECORDS SUMMARY | 2024-11-15 12:52 | XMS_ITS | Encounter Summary ---
Author Organization [employer] Address [address] [facility] 7t [place] [address] Care Team Providers Care Downstream Biomanufacturing Technician Name Role Phone Brenda Tovar MD Primary [...] with others, in a hotel, in a group home, living outside on the street, on [...] Procedure Name Priority Date/Time Associated Diagnosis Comments GLUCOSE, WHOLE BLOOD Routine 11/13/2024 3:23 PM EDT BASIC METABOLIC PANEL Routine 11/13/2024 12:49 PM EDT GLUCOSE, WHOLE BLOOD Routine 11/13/2024 12:[address] SOFT TISSUE NECK W CONTRAST Routine 11/13/2024 11:43 AM EDT VENOUS BLOOD GAS Routine 11/13/2024 10:5 9 AM EDT MONONUCLEOSIS TEST, QUALITATIVE Routine 11/13/2024 10:53 AM EDT GLUCOSE, WHOLE BLOOD Routine 11/13/2024 10:51 AM EDT GLUCOSE, WHOLE BLOOD Routine 11/13/2024 10:45 AM EDT STREP A NUCLEIC ACID Routine 11/13/2024 9:39 AM EDT SARS COV2/INFLUENZA A/B AND RSV RNA QL NAAT Routine 11/13/2024 9:39 AM EDT BETA-HYDROXYBUTYRATE Routine 11/13/2024 9:39 AM EDT CBC WITH AUTO DIFFERENTIAL Routine 11/13/2024 9:39 AM EDT SED RATE BY MODIFIED WESTERGREN Routine 11/13/2024 9:39 AM EDT C-REACTIVE PROTEIN Routine 11/13/2024 9: 39 AM EDT MAGNESIUM Routine 11/13/2024 9:39 AM EDT HEMOGLOBIN A1C Routine 11/13/2024 9:39 AM EDT COMPREHENSIVE METABOLIC PANEL Routine 11/13/2024 9:39 AM EDT documented in this encounter Results * (ABNORMAL) Glucose, Whole Blood (11/13/2024 3:23 PM EDT) Pathologist [facility] Glucose, Whole Blood 401(HH) 60 - 115 mg/dL [facility] Comment:METER #: [id number] 11/13/2024 3:23 PM EDT 11/13/2024 3:29 PM EDT us Generic External Data Provider LAB BLOOD ORDERAB LES Final Result [facility] [address] [place] [phone] * (ABNORMAL) Basic Metabolic Panel (11/13/2024 12:49 PM EDT) [facility] Sodium 126(L) 135 - 145 mmol/L [facility] Potassium 4.2 3.3 - 5.1 mmol/L [facility] Chloride 93(L) 96 - 108 mmol/L [facility] Carbon Dioxide 20(L) 22 - 29 mmol/L [facility] Anion Gap 17 12 - 20 [facility] Urea Nitrogen (BUN) 24(H) 9 - 16 mg/dL [facility] Creatinine, Serum 1.65(H) 0.5 - 1.4 mg/dL [facility] Creatinine Clr Calc Pharmacy 43.9 [facility] Comment:Provided height and weight: 165.1 cm,97.6 kg.eGFR (calculated from the MDRD study equation) and eCrCl(calculated from the Cockcroft-Gault equation) are based ondifferent parameters and may not yield comparable results.If eCrCl result is absurd, please check patient'sheight/weight. Estimated Glomerular Filt Rate 32 [facility] Comment:Chronic Kidney Disea se: Estimated GFR < 60 mL/min/1.33f1Eighnz Kidney Disease: Estimated GFR < 15 mL/min/1.73m2 Glucose 595(HH) 60 - 115 mg/dL [facility] Comment:Critical value for G LEI: Results called to and read backby: MAYRA Person calling: SAM Date: 11-13-24 Time: 1309 Calcium 8.3(L) 8.4 - 10.2 mg/dL [facility] 11/13/2024 12:4 9 PM EDT 11/13/2024 12:52 PM EDT us Generic External Data Provider LAB BLOOD ORDERAB LES Final Result Performing Organization Address [facility]/ZIP Co de Phone Number [facility] [address] [place] [address] [phone] * (ABNORMAL) Glucose, Whole Blood (11/13/2024 12:15 PM EDT) Glucose, Whole Blood 579(HH) 60 - 115 mg/dL [facility] Comment:METER #: [id number] 11/13/2024 12:1 5 PM EDT 11/13/2024 12:22 PM EDT us Generic External Data Provider LAB BLOOD ORDERAB LES Final Result [facility] [address] [place] [phone] * CT Soft Tissue Neck w/ Contrast (11/13/2024 11:43 AM EDT) Anatomical Region Laterality Modality Head, Neck Computed Tomogra phy 11/13/2024 11:4 3 AM EDT Narrative 11/13/2024 11:45 AM EDT ? [facility] ?[address] ?[place] [address] ? CT Scan Report ? Signed ? Patient: Vides,Hawthorne E ?MR#: [id number] ?? 74 ? : 1970 ?Acct:[id number] ? Age/Sex: 54 / F ?ADM Date: 11/13/24 ? Loc: HO.ED ? Attending Dr: ? Ordering Physician: Candelaria Johnson ?? Date of Service: 11/13/24 ?? Procedure(s): CT soft tissue neck w IV con ?? Accession Number(s): [id number] ? cc: Brenda Tovar MD; Candelaria Johnson ? Report Number: ?? [id number]: Total DLP = ??674.00 mGy-cm ? CLINICAL HISTORY: neck pain, swelling, difficulty swallowing ? CT soft tissue neck with contrast ? Comparison: None ? Findings: ?? The visualized intracranial contents are unremarkable. ?? There is mild prominence of the adenoidal soft tissues and the palatine ?? tonsils. ?? No peritonsillar abscess. ?? Salivary glands are within normal limits. No sialoliths. ?? Thyroid gland is unremarkable. ?? Complete opacification of the right maxillary sinus and partial ?? opacification of the left maxillary sinus and ethmoid air cells. ?? No consolidation at the lung apices. ?? No acute fractures. ? IMPRESSION: ?? There is prominence of the adenoidal soft tissues and palatine tonsils ?? without peritonsillar abscess. ?? Paranasal sinus disease. ? This document has been electronically signed by: Pascual Alexander MD on ?? 11/13/2024 11:43:44 ? Dictated By: ?Pascual Alexander MD ? Signed By: ?<Electronically signed by Pascual Alexander MD in OV> ? 11/13/24 1145 ? DD/ 1143 ? TD/TT: 04/21/25 1143 ? Plywood And Veneer Repairer: ? Procedure Note Donotuseinterpreter, Image - 11/13/[address] [address] [address] Scan Report Signed Patient: Jeny Vides EMR#: [id number] 74 : 1970Acct:[id number] Age/Sex: 54 / FADM Date: 11/13/24 Loc: HO.ED Attending Dr: Ordering Physician: Candelaria Johnson Date of Service: 11/13/24 Procedure(s): CT soft tissue neck w IV con Accession Number(s): [id number] cc: Brenda Tovar MD; Candelaria Johnson Report Number: [id number]: Total DLP = 674.00 mGy-cm CLINICAL HISTORY: neck pain, swelling, difficulty swallowing CT soft tissue neck with contrast Comparison: None Findings: The visualized intracranial contents are unremarkable. There is mild prominence of the adenoidal soft tissues and the palatine tonsils. No peritonsillar abscess. Salivary glands are within normal limits. No sialoliths. Thyroid gland is unremarkable. Complete opacification of the right maxillary sinus and partial opacification of the left maxillary sinus and ethmoid air cells. No consolidation at the lung apices. No acute fractures. IMPRESSION: There is prominence of the adenoidal soft tissues and palatine tonsils without peritonsillar abscess. Paranasal sinus disease. This document has been electronically signed by: Pascual Alexander MD on 11/13/2024 11:43:44 Dictated By: Pascual Alexander MD Signed By: <Electronically signed by Pascual Alexander MD in OV> 11/13/24 1145 DD/ 1143 TD/TT: 11/13/24 1143 Plywood And Veneer Repairer: [facility] External Provider IMG CT PROCEDURES Edited Result - Final * (ABNORMAL) VENOUS BLOOD GAS (11/13/2024 10:59 AM EDT) VBG pH 7.34 7.32 - 7.43 [facility] Comment:METER #: [id number] additional_comment: Cbmartint VBG PCO2 50 mmHg [facility] Comment:METER #: [id number] additional_comment: Cbmartint VBG PO2 50 mmHg [facility] Comment:METER #: [id number] additional_comment: Cbmartint VBG Base Excess 1.1 mmol/L [facility] Comment:METER #: [id number] additional_comment: Cbmartint VBG HCO3 27(H) 22 - 26 mmol/L [facility] Comment:METER #: [id number] additional_comment: Cbmartint O2 Sat, [place] 78.0 % [facility] Comment:METER #: [id number] additional_comment: Cbmartint 11/13/2024 10:5 9 AM EDT 11/13/2024 11:02 AM EDT us Generic External Data Provider LAB BLOOD ORDERAB LES Final Result Performing Organization Address City/[facility]/ZIP Co de Phone Number [facility] [address] [place] [phone] * Mononucleosis Test, Qualitative (11/13/2024 10:53 AM EDT) Monotest Negative Negative [facility] 11/13/2024 10:5 3 AM EDT 11/13/2024 10:57 AM EDT Astrid External Data Provider LAB BLOOD ORDERAB LES Final Result Performing Organization Address [facility] Co de Phone Number [facility] [address] [place] [phone] * (ABNORMAL) Glucose, Whole Blood (11/13/2024 10:51 AM EDT) Glucose, Whole Blood >600(HH) 60 - 115 mg/dL [facility] Comment:METER #: [id number] 11/13/2024 10:5 1 AM EDT 11/13/2024 10:58 AM EDT Generic External Data Provider LAB BLOOD ORDERAB LES Final Result Performing Organization Address [facility] de Phone Number [facility] [address] [place] [address] [phone] * (ABNORMAL) Glucose, Whole Blood (11/13/2024 10:45 AM EDT) [facility] Glucose, Whole Blood >600(HH) 60 - 115 mg/dL [facility] Comment:METER #: [id number] 11/13/2024 10:4 5 AM EDT 11/13/2024 10:58 AM EDT Generic External Data Provider LAB BLOOD ORDERAB LES Final Result Performing Organization Address [facility] de Phone Number [facility] [address] [place] [address] [phone] * (ABNORMAL) Magnesium (11/13/2024 9:39 AM EDT) [facility] Magnesium 1.3(LL) 1.6 - 2.6 mg/dL [facility] Comment:Critical value for t est(s): MAGS Results called to and readback by:MAYRA Person calling:ELLIS Date:11/13/24Time:1248 11/13/2024 9:39 AM EDT 11/13/2024 9:49 AM EDT us Generic External Data Provider LAB BLOOD ORDERAB LES Final Result Performing Organization Address [facility] de Phone Number [facility] [address] [place] [address] [phone] * (ABNORMAL) Beta-Hydroxybutyrate (11/13/2024 9:39 AM EDT) Beta-Hydroxybu tyrate 0.29(H) 0.02 - 0.27 mmol/L [facility] 11/13/2024 9:39 AM EDT 11/13/2024 9:49 AM EDT Generic External Data Provider LAB BLOOD ORDERAB LES Final Result Performing Organization Address [facility] Co de Phone Number [facility] [address] [place] [phone] * (ABNORMAL) Hemoglobin A1c (11/13/2024 9:39 AM EDT) Hemoglobin A1c 12.3(H) <6.0 % [facility] Comment:Hemoglobin A1C Refer ence Range Adults: 4.8 - 6.0 % Non diabetic: < 6.0 % Goal: < 7.0 %Additional Action Suggested: > 8.0 %Note: Hemoglobin A1c results are invalid for patients with abnormal amounts of HbF. Blood transfusions may impact the HbA1c concentration in the patient sample. Estimated Average Glucose 306 mg/dL [facility] Comment:eAG = Estimated ave rage glucose which is %A1C expressed asaverage glucose, using the formula of the Z5O-XbfqugpQvazamj Glucose study (ADAG), Diabetes Care, Vol.31,#8,Feb. 2007 11/13/2024 9:39 AM EDT 11/13/2024 10:47 AM EDT us Generic External Data Provider LAB BLOOD ORDERAB LES Final Result Performing Organization Address [facility] Co de Phone Number [facility] [address] [place] [phone] * (ABNORMAL) Sed Rate by Modified Linnette (11/13/2024 9:39 AM EDT) Erythrocyte Sedimentation Rate 55(H) 0 - 20 MM/HR [facility] Comment:Patients with polycy themia and many hemoglobin abnormalitiesmay have depressed sed rates whereas patients with anemiamay have elevated sed rates. 11/13/2024 9:39 AM EDT 11/13/2024 10:12 AM EDT Generic External Data Provider LAB BLOOD ORDERAB LES Final Result Performing Organization Address [facility] Co de Phone Number [facility] [address] [place] [phone] * (ABNORMAL) C-reactive Protein (11/13/2024 9:39 AM EDT) Pathologist [facility] C Reactive Protein 4.56(H) < or = 0.50 mg/dL [facility] 11/13/2024 9:39 AM EDT 11/13/2024 9:49 AM EDT Generic External Data Provider LAB BLOOD ORDERAB LES Final Result Performing Organization Address [facility] Phone Number [facility] [address] [place] [phone] * (ABNORMAL) Comprehensive Metabolic Panel (11/13/2024 9:39 AM EDT) Pathologist [facility] Sodium 121(L) 135 - 145 mmol/L [facility] Potassium 4.2 3.3 - 5.1 mmol/L [facility] Chloride 84(L) 96 - 108 mmol/L [facility] Carbon Dioxide 21(L) 22 - 29 mmol/L [facility] Anion Gap 20 12 - 20 [facility] Urea Nitrogen (BUN) 26(H) 9 - 16 mg/dL [facility] Creatinine, Serum 2.46(H) 0.5 - 1.4 mg/dL [facility] Creatinine Clr Calc Pharmacy 29.5 [facility] Comment:Provided height and weight: 165.1 cm,97.6 kg.eGFR (calculated from the MDRD study equation) and eCrCl(calculated from the Cockcroft-Gault equation) are based ondifferent parameters and may not yield comparable results.If eCrCl result is absurd, please check patient'sheight/weight. Estimated Glomerular Filt Rate 20 [facility] Comment:Chronic Kidney Disea se: Estimated GFR < 60 mL/min/1.03s9Zodksa Kidney Disease: Estimated GFR < 15 mL/min/1.73m2 Glucose 1,023(HH) 60 - 115 mg/dL [facility] Comment:Critical value for G LEI: Results called to and read khadijahy: MAYRA Person calling: CLAUDIANKIR Date: 11-13-24 Time: 1040 Calcium 8.8 8.4 - 10.2 mg/dL [facility] Bilirubin, Total 0.4 0.0 - 1.0 mg/dL [facility] Aspartate Amino Transferase 15 5 - 31 U/L [facility] Alanine Aminotransferase 12 0 - 31 U/L [facility] Total Protein 7.4 6.5 - 8.0 g/dL [facility] Albumin Level 3.9 3.5 - 5.0 g/dL [facility] Alkaline Phosphatase 128(H) 39 - 117 U/L [facility] 11/13/2024 9:39 AM EDT 11/13/2024 9:49 AM EDT us Generic External Data Provider LAB BLOOD ORDERAB LES Final Result [facility] [address] [place] [phone] * SARS-CoV-2 RNA, Influenza A/B, and RSV RNA, Ql NAAT (11/13/2024 9:39 AM EDT) Influenza A PCR NEGATIVE Negative [facility] Influenza B PCR NEGATIVE Negative [facility] Resp Syncy Virus RNA Qual PCR NEGATIVE Negative [facility] SARS COV2 PCR NEGATIVE Negative [facility] Comment:All test results mus t be correlated with clinical findings.Negative results do not preclude SARS-CoV2, influenza Avirus, influenza B virus and/or RSV infectionand should not be used as the sole basis for treatment orother patient management decisions. Negative results must becombined with clinical observations, patient history, andepidemiological information.This test has not been evaluated for monitoring treatment ofinfection.This test has been authorized by the FDA under an EmergencyUse Authorization (EUA) for use by authorized laboratories.Testing performed on the [employer] GeneXpert utilizingreal-time RT-PCR.All SARS CoV2 and positive influenza A/B results arereported to [facility]. 11/13/2024 9:39 AM EDT 11/13/2024 9:49 AM EDT Generic External Data Provider LAB MICROBIOLOGY - GENERAL ORDERABLES Final Result Performing Organization Address [facility] Co de Phone Number [facility] [address] [place] [phone] * Strep A Nucleic Acid (11/13/2024 9:39 AM EDT) Pathologist [facility] IDNOW SERIAL# [id number] [facility] Strep A Nucleic Acid Negative Negative [facility] Comment:All test results mus t be correlated with clinical findings.This test has not been evaluated for monitoring treatment ofinfection.Additional follow-up testing using the culture method isrequired if the result is negative and clinical symptomspersist, or in the event of an acute rheumatic feveroutbreak. 11/13/2024 9:39 AM EDT 11/13/2024 9:49 AM EDT Generic External Data Provider LAB MICROBIOLOGY - GENERAL ORDERABLES Final Result Performing Organization Address [facility] Co de Phone Number [facility] [address] [place] [phone] * (ABNORMAL) CBC auto differential (11/13/2024 9:39 AM EDT) White Blood Count 10.7 4.8 - 10.8 X10*3/uL [facility] Red Blood Count 4.39 4.20 - 5.50 X10*6/uL [facility] Hemoglobin 11.7(L) 12.0 - 16.0 g/dl [facility] Hematocrit 35.5(L) 37.0 - 47.0 % [facility] Mean Corpuscular Volume 80.9 80.0 - 98.0 fL [facility] Mean Corpuscular Hemoglobin 26.7(L) 27.0 - 33.0 pg [facility] Mean Corpuscular HGB Conc 33.0 31.0 - 35.0 g/dl [facility] Red Cell Distribution Width 13.9 11.0 - 16.0 % [facility] Platelet Count 237 160 - 400 X10*3/uL [facility] Mean Platelet Volume 11.6 9.4 - 12.3 fL [facility] Neutrophils Percent Auto 77.0(H) 45 - 73 % [facility] Imm Gran Pct Auto 0.4 0.0 - 0.4 % [facility] Lymphocytes Percent Auto 15.9(L) 20 - 40 % [facility] Monocytes Percent Auto 4.5 2 - 11 % [facility] Eosinophils Percent Auto 1.9 0 - 4 % [facility] Basophils Percent Auto 0.3 0 - 2 % [facility] NRBC Pct Auto 0.0 0.0 - 0.2 /100WBC [facility] Neutrophils Absolute Auto 8.2 2.0 - 8.3 x10*3/uL [facility] Imm Gran Abs Auto 0.04(H) 0.00 - 0.03 X10*3/uL [facility] Lymphocytes Absolute Auto 1.7 1.2 - 4.9 X10*3/uL [facility] Monocytes Absolute Auto 0.5 0.1 - 1.2 X10*3/uL [facility] Eosinophils Absolute Auto 0.2 0.0 - 0.4 X10*3/uL [facility] Basophils Absolute Auto 0.0 0.0 - 0.2 X10*3/uL [facility] NRBC Abs Auto 0.000 0.0 - 0.012 X10*3/uL [facility] 11/13/2024 9:39 AM EDT 11/13/2024 9:49 AM EDT us Generic External Data Provider LAB BLOOD ORDERAB LES Final Result [facility] [address] [place] [phone] documented in this encounter Visit Diagnoses Not on filedocumented in this encounter Additional Health Concerns Assessment Noted Time PHQ-9 Depression Total Score: 0 03/03/20 24 11:00 AM EDT documented as of this encounter Care Teams Downstream Biomanufacturing Technician Relationship Specialty Start Date End Date Brenda Tovar MD [address] [place] [address] PCP - General Family Medicine 02/16/19 Eugene Jarvis FNP [address] [place] [address] Nurse Practitioner Family Medicine 06/21/23 documented as of this encounter
--- OUTSIDE RECORDS SUMMARY | 2024-11-15 12:52 | XMS_ITS | Encounter Summary ---
Author Organization [employer] Address [address] [facility] [address] [place] [address] Care Team Providers Care Steel Shot Header Operator Name Role Phone Brenda Tovar MD Primary Care Provide r Eugene Jarvis Unavailable Unavailable Reason for Visit * Reason Comments Med Refill Encounter Details Date Type Department Care Team ([facility] st Contact Info) Description 01/29/2023 Refill [facility] [address] [place], [place] [phone] NameRivera MD [address] [place] [address] Hypertension, unspecified type Social History Tobacco Use [...] documented as of this encounter Care Teams Steel Shot Header Operator Relationship Specialty Start Date End Date Brenda Tovar MD [address] [place] [address] PCP - General Family Medicine 02/16/19 Eugene Jarvis FNP [address] [place] [address] Nurse Practitioner Family Medicine 06/21/23 documented as of this encounter
--- OUTSIDE RECORDS SUMMARY | 2024-11-15 12:52 | XMS_ITS | Clinical Summary ---
Author Organization [employer] Address [address] [facility] [address] [place] [address] Care Team Providers Care Teradata Solution Architect Name Role Phone Brenda Tovar MD Primary [...] Active Continuous Glucose Sensor (Dexcom G7 Sensor) [facility] USE TO MONITOR BLOOD GLUCOSE CONTINUOUSLY, CHANGE [...] mL, 5 Refills, Maintenance, 01/21/24 10:24:00 EDT, [facility], 165, cm, 08/23/23 13:15:00 EST, Height, 84.3... Active Ozempic, 2 MG/DOSE, 8 MG/3ML solution pen-injector Inject 2 mg under the skin every 7 (seven) days. Active clonazePAM (KlonoPIN) 1 MG tablet Take 1 tablet by mouth 2 times daily. Active Easy Touch Pen [place] 31G X 8 MM [facility] USE DIRECTED TO INJECT INSULIN FOUR TIMES [...] hyperglycemia, with long-term current use of insulin ([facility]) Inject 5 mg under the [...] hyperglycemia, with long-term current use of insulin ([facility]) INJECT ONE PEN (=5MG) SUBCUTANEOUSLY [...] Assessment & Plan (02/26/2023 1:28 PM EDT): general counsel about increase fiber and water on her diet GI referral Unstable gait 02/26/2023 Assessment & Plan (02/26/2023 11:15 AM EDT): Rolator walker will be prescribed for patient Tardive dyskinesia 02/08/2023 Assessment & Plan (06/21/2023 10:39 AM EST): Symptoms have improved somewhat, ?r/t discontinuation of Benztropine? F/U with Neurologist at [facility] as scheduled. Do not F/U with Neurologist at [place]. ED as needed. Assessment & Plan (05/27/2023 2:47 PM EDT): Unfortunately seems to be progressing. Pt understands the etiology of this, and the probability that it will be chronic. Per [facility], advised to avoid anticholinergics. She will stop Benztropine 2 mg BID. F/U with Neurologist at [facility] as scheduled. Do not F/U with Neurologist at [place]. ED as needed. Assessment & Plan (05/21/2023 [...] so we will not schedule F/U with [facility]. She agrees with [...] bedtime. She has started with therapist at [facility], and they are awaiting copies of [...] (risk/benefit reviewed). She will F/U ROXANA with [facility] for counseling and med mgt. F/U with Neurologist at [facility] per PCP. Also discussed option of seeking care at [facility] ED if movement disorder is intolerable. [...] psychiatric medications. She has been referred to [facility] for counseling and med mgt, and has been given their phone number to call and request expedited appointment. She will also F/U with Neurologist at [facility] per PCP. Also discussed option of seeking care at [facility] ED if movement disorder is intolerable. [...] psychiatric medications. She has been referred to [facility] for counseling and med mgt, and has been given their phone number to call and request expedited appointment. She will also F/U with Neurologist at [facility] per PCP. Also discussed option of seeking care at [facility] ED if movement disorder is intolerable. [...] psychiatric medications. She has been referred to [facility] for counseling and med mgt, and has been given their phone number to call and request expedited appointment. She will also F/U with Neurologist at [facility] per PCP. Also discussed option of seeking care at [facility] ED if movement disorder is intolerable. [...] from mother. PLAN: 1. Follow up with [facility]: Not recommended for follow-up 2. [...] Requesting therapist support and referral to outpatient [facility] for counseling and med mgt. Could [...] no med changes, but we will request [facility] clinician outreach. F/u with me in 6 [...] Encounters Date Type Department Care Team Description 11/15/2024 Orders Only GENERIC EXTERNAL DATA DEPARTMENT Provider, Generic External Data 11/13/2024 Orders Only GENERIC EXTERNAL DATA DEPARTMENT Provider, Generic External Data 10/24/2024 Refill [facility] [address] [place] [address] Kimber Almanzar MD Hypertension, unspecified type; Type 2 diabetes mellitus with hyperglycemia, with long-term current use of insulin ([facility]) 10/24/2024 Refill [facility] [address] [place] [address] Brenda Tovar MD Type 2 diabetes mellitus with hyperglycemia, with long-term current use of insulin ([facility]) 09/26/2024 Refill [facility] [address] [place] [address] Kimber Almanzar MD Type 2 diabetes mellitus with hyperglycemia, with long-term current use of insulin ([facility]) 08/25/2024 Refill [facility] [address] [place] [address] Demetra Layton MD Hypertension, unspecified type 08/25/2024 Refill [facility] [address] [place] [address] Brenda Tovar MD Mood disorder ([facility]); Type 2 diabetes mellitus with hyperglycemia, with long-term current use of insulin ([facility]); Hypertension, unspecified type 08/17/2024 Refill [facility] [address] [place] [address] Brenda Tovar MD Hypertension, unspecified type from [...] with others, in a hotel, in a senior care, living outside on the street, on a [...] Pap Smear 1989 HPV/Cotest 1998 Mammogram 2008 SDOH Screening 12/09/2024 12/10/2023 Diabetes: Hemoglobin A1C 02/12/2025 025, 11/13/2024, 04/28/2024, Additional history exists Alcohol/Substance Use Screening 03/03/2025 03/03/2024 Depression Screening [...] Procedure Name Priority Date/Time Associated Diagnosis Comments BASIC METABOLIC PANEL Routine 11/15/2024 11:02 AM EDT HEMOGLOBIN A1C Routine 11/15/2024 11:02 AM EDT Type 2 diabetes mellitus with hyperglycemia, with long-term current use of insulin ([facility]) GLUCOSE, WHOLE BLOOD Routine 11/13/2024 3:23 PM [...] WHOLE BLOOD Routine 11/13/2024 10:45 AM EDT MAGNESIUM Routine 11/13/2024 9:39 AM EDT BETA-HYDROXYBUTYRATE Routine 11/13/2024 9:39 AM EDT HEMOGLOBIN A1C Routine 11/13/2024 9:39 AM EDT SED RATE BY MODIFIED WESTERGREN Routine 11/13/2024 9:39 AM EDT C-REACTIVE PROTEIN Routine 11/13/2024 9: 39 AM EDT COMPREHENSIVE METABOLIC PANEL Routine 11/13/2024 9:39 AM EDT CBC WITH AUTO DIFFERENTIAL Routine 11/13/2024 9:39 AM EDT SARS COV2/INFLUENZA A/B AND RSV RNA QL NAAT Routine 11/13/2024 9:39 AM EDT STREP A NUCLEIC ACID Routine 11/13/2024 9:39 AM EDT ALBUMIN, RANDOM URINE W/CREATININE Routine 03/28/2024 11:30 AM EDT Type 2 diabetes mellitus with hyperglycemia, with long-term current use of insulin (CMS/HCC) LIPID PANEL WITH REFLEX TO DIRECT LDL Routine 03/28/2024 11:11 AM EDT Type 2 diabetes mellitus with hyperglycemia, with long-term current use of insulin ([facility]) ZZZ HISTORICAL HEPATITIS A,B,C PROFILE Routine 09/26/2019 9:47 AM EST from Last 3 Months or Most Recently Relevant to Health Maintenance Results * (ABNORMAL) Hemoglobin A1c (11/15/2024 11:02 AM EDT) Only the most recent of2 resultswithin the time period is included. Hemoglobin A1c 12.3(H) <6.0 % [facility] Comment:Hemoglobin A1C Refer ence Range Adults: 4.8 - 6.0 % Non diabetic: < 6.0 % Goal: < 7.0 %Additional Action Suggested: > 8.0 %Note: Hemoglobin A1c results are invalid for patients with abnormal amounts of HbF. Blood transfusions may impact the HbA1c concentration in the patient sample. Estimated Average Glucose 306 mg/dL [facility] Comment:eAG = Estimated ave rage glucose which is %A1C expressed asaverage glucose, using the formula of the N5B-BdpvxasJqeolrr Glucose study (ADAG), Diabetes Care, Vol.31,#8,Feb. 2007 Blood Venous blood specimen / Unknown 11/15/2024 11:02 AM EDT 11/15/2024 11:03 AM EDT us Brenda Ojeda MD LAB BLOOD ORDERABLES Final Result Performing Organization Address City/[facility]/ZIP Co de Phone Number [facility] [address] [place] [address] [phone] * (ABNORMAL) Basic Metabolic Panel (11/15/2024 11:02 AM EDT) Only the most recent of2 resultswithin the time period is included. Sodium 138 135 - 145 mmol/L [facility] Potassium 4.3 3.3 - 5.1 mmol/L [facility] Chloride 104 96 - 108 mmol/L [facility] Carbon Dioxide 26 22 - 29 mmol/L [facility] Anion Gap 12 12 - 20 [facility] Urea Nitrogen (BUN) 10 9 - 16 mg/dL [facility] Creatinine, Serum 0.92 0.5 - 1.4 mg/dL [facility] Estimated Glomerular Filt Rate >60 [facility] Comment:Chronic Kidney Disea se: Estimated GFR < 60 mL/min/[id number] Kidney Disease: Estimated GFR < 15 mL/min/1.73m2 Glucose 288(H) 60 - 115 mg/dL [facility] Calcium 8.3(L) 8.4 - 10.2 mg/dL [facility] 11/15/2024 11:0 2 AM EDT 11/15/2024 11:03 AM EDT us Generic External Data Provider LAB BLOOD ORDERAB LES Final Result Performing Organization Address City/[facility]/ZIP Co de Phone Number [facility] [address] [place] [address] [phone] * (ABNORMAL) Glucose, Whole Blood (11/13/2024 3:23 PM EDT) Only the most recent of4 resultswithin the time period is included. Glucose, Whole Blood 401(HH) 60 - 115 mg/dL [facility] Comment:METER #: [id number] 11/13/2024 3:23 PM EDT 11/13/2024 3:29 PM EDT us Generic External Data Provider LAB BLOOD ORDERAB LES Final Result Performing Organization Address [facility]/State/ZIP Co de Phone Number [facility] [address] [place] [address] [phone] * CT Soft Tissue Neck w/ Contrast (11/13/2024 11:43 AM EDT) Anatomical Region Laterality Modality Head, Neck Computed Tomogra phy 11/13/2024 11:4 3 AM EDT Narrative 11/13/2024 11:45 AM EDT ? [facility] ?[address] ?[place] [address] ? CT Scan Report ? Signed ? Patient: Vides,[place] E ?MR#: [id number] ?? 74 ? : 1970 ?Acct:[id number] ? Age/Sex: 54 / F ?ADM Date: 11/13/24 ? Loc: HO.ED ? Attending Dr: ? Ordering Physician: Candelaria Johnson ?? Date of Service: 11/13/24 ?? Procedure(s): CT soft tissue neck w IV con ?? Accession Number(s): [id number] ? cc: Brenda Tovar MD; Candelaria Johnson ? Report Number: ?? [id number]: Total DLP = ??674.00 mGy-cm ? CLINICAL [...] by Pascual Alexander MD in OV> ? 11/13/245 ? DD/ 1143 ? TD/TT: 11/13/24 1143 ? Neck Cutter: ? Procedure Note Donvirgilioter, Image - 11/13/[address] [address] [address] Scan Report Signed Patient: Jeny Vides EMR#: [id number] 74 : 1970Acct:[id number] Age/Sex: 54 / FADM Date: 11/13/24 Loc: HO.ED Attending Dr: Ordering Physician: Candelaria Johnson Date of Service: 11/13/24 Procedure(s): CT soft tissue neck w IV con Accession Number(s): [id number] cc: Brenda Tovar MD; Candelaria Johnson Report Number: [id number]: Total DLP = 674.00 mGy-cm CLINICAL HISTORY: [...] MD on 11/13/2024 11:43:44 Dictated By: Pascual Alxeander MD Signed By: <Electronically signed by Pascual Alexander MD in OV> 11/13/24 1145 DD/ 1143 TD/TT: 11/13/24 1143 Neck Cutter: us [facility] External Provider IMG CT PROCEDURES Edited Result - Final * (ABNORMAL) VENOUS BLOOD GAS (11/13/2024 10:59 AM EDT) VBG pH 7.34 7.32 - 7.43 [facility] Comment:METER #: [id number] additional_comment: Cbmartint VBG PCO2 50 mmHg [facility] Comment:METER #: [id number] additional_comment: [employer] VBG PO2 50 mmHg [facility] Comment:METER #: [id number] additional_comment: [employer] VBG Base Excess 1.1 mmol/L [facility] Comment:METER #: [id number] additional_comment: [employer] VBG HCO3 27(H) 22 - 26 mmol/L [facility] Comment:METER #: [id number] additional_comment: [employer] O2 Sat, [place] 78.0 % [facility] Comment:METER #: [id number] additional_comment: Cbmartint 11/13/2024 10:5 9 AM EDT 11/13/2024 11:02 AM EDT us Generic External Data Provider LAB BLOOD ORDERAB LES Final Result Performing Organization Address City/[facility]/ZIP Co de Phone Number [facility] [address] [place] [phone] * Mononucleosis Test, Qualitative (11/13/2024 10:53 AM EDT) Monotest Negative Negative [facility] 11/13/2024 10:5 3 AM EDT 11/13/2024 10:57 AM EDT us Generic External Data Provider LAB BLOOD ORDERAB LES Final Result Performing Organization Address [facility]/ZIP Co de Phone Number [facility] [address] [place] [address] [phone] * Strep A Nucleic Acid (11/13/2024 9:39 AM EDT) [employer]NOW SERIAL# [id number] [facility] Strep A Nucleic Acid Negative Negative [facility] Comment:All test results mus t be [...] LAB MICROBIOLOGY - GENERAL ORDERABLES Final Result [facility] [address] [place] [address] [phone] * SARS-CoV-2 RNA, Influenza A/B, and RSV RNA, Ql NAAT (11/13/2024 9:39 AM EDT) Influenza A PCR NEGATIVE Negative [facility] Influenza B PCR NEGATIVE Negative [facility] Resp Syncy Virus RNA Qual PCR NEGATIVE Negative [facility] SARS COV2 PCR NEGATIVE Negative [facility] Comment:All test results mus t [...] use by authorized laboratories.Testing performed on the [employer] GeneXpert utilizingreal-time RT-PCR.All SARS CoV2 and positive influenza A/B results arereported to [facility]. 11/13/2024 9:39 AM EDT 11/13/2024 9:49 AM EDT Generic External Data Provider LAB MICROBIOLOGY - GENERAL ORDERABLES Final Result Performing Organization Address [facility]/ZIP Co de Phone Number [facility] [address] [place] [phone] * (ABNORMAL) Beta-Hydroxybutyrate (11/13/2024 9:39 AM EDT) Pathologist [facility] Beta-Hydroxybu tyrate 0.29(H) 0.02 - 0.27 mmol/L [facility] 11/13/2024 9:39 AM EDT 11/13/2024 9:49 AM EDT Generic External Data Provider LAB BLOOD ORDERAB LES Final Result Performing Organization Address [facility] de Phone Number [facility] [address] [place] [phone] * (ABNORMAL) CBC auto differential (11/13/2024 9:39 AM EDT) [facility] White Blood Count 10.7 4.8 - 10.8 X10*3/uL [facility] Red Blood Count 4.39 4.20 - 5.50 X10*6/uL [facility] Hemoglobin 11.7(L) 12.0 - 16.0 g/dl [facility] Hematocrit 35.5(L) 37.0 - 47.0 % [facility] Mean Corpuscular Volume 80.9 80.0 - 98.0 fL [facility] Mean Corpuscular Hemoglobin 26.7(L) 27.0 - 33.0 pg [facility] Mean Corpuscular HGB Conc 33.0 31.0 - 35.0 g/dl [facility] Red Cell Distribution Width 13.9 11.0 - 16.0 % [facility] Platelet Count 237 160 - 400 X10*3/uL [facility] Mean Platelet Volume 11.6 9.4 - 12.3 fL [facility] Neutrophils Percent Auto 77.0(H) 45 - 73 % [facility] Imm Gran Pct Auto 0.4 0.0 - 0.4 % [facility] Lymphocytes Percent Auto 15.9(L) 20 - 40 % [facility] Monocytes Percent Auto 4.5 2 - 11 % [facility] Eosinophils Percent Auto 1.9 0 - 4 % [facility] Basophils Percent Auto 0.3 0 - 2 % [facility] NRBC Pct Auto 0.0 0.0 - 0.2 /100WBC [facility] Neutrophils Absolute Auto 8.2 2.0 - 8.3 x10*3/uL [facility] Imm Gran Abs Auto 0.04(H) 0.00 - 0.03 X10*3/uL [facility] Lymphocytes Absolute Auto 1.7 1.2 - 4.9 X10*3/uL [facility] Monocytes Absolute Auto 0.5 0.1 - 1.2 X10*3/uL [facility] Eosinophils Absolute Auto 0.2 0.0 - 0.4 X10*3/uL [facility] Basophils Absolute Auto 0.0 0.0 - 0.2 X10*3/uL [facility] NRBC Abs Auto 0.000 0.0 - 0.012 X10*3/uL [facility] 11/13/2024 9:39 AM EDT 11/13/2024 9:49 AM EDT us Generic External Data Provider LAB BLOOD ORDERAB LES Final Result [facility] [address] [place] [phone] * (ABNORMAL) Sed Rate by Modified Linnette (11/13/2024 9:39 AM EDT) Erythrocyte Sedimentation Rate 55(H) 0 - 20 MM/HR [facility] Comment:Patients with polycy themia and many hemoglobin abnormalitiesmay have depressed sed rates whereas patients with anemiamay have elevated sed rates. 11/13/2024 9:39 AM EDT 11/13/2024 10:12 AM EDT Generic External Data Provider LAB BLOOD ORDERAB LES Final Result Performing Organization Address [facility] de Phone Number [facility] [address] [place] [phone] * (ABNORMAL) C-reactive Protein (11/13/2024 9:39 AM EDT) Pathologist [facility] C Reactive Protein 4.56(H) < or = 0.50 mg/dL [facility] 11/13/2024 9:39 AM EDT 11/13/2024 9:49 AM EDT Generic External Data Provider LAB BLOOD ORDERAB LES Final Result Performing Organization Address [facility] de Phone Number [facility] [address] [place] [phone] * (ABNORMAL) Magnesium (11/13/2024 9:39 AM EDT) [facility] Magnesium 1.3(LL) 1.6 - 2.6 mg/dL [facility] Comment:Critical value for t est(s): MAGS Results called to and readback by:MAYRA Person calling:ELLIS Date:11/13/24Time:1248 11/13/2024 9:39 AM EDT 11/13/2024 9:49 AM EDT Generic External Data Provider LAB BLOOD ORDERAB LES Final Result Performing Organization Address [facility] Co de Phone Number [facility] [address] [place] [phone] * (ABNORMAL) Comprehensive Metabolic Panel (11/13/2024 9:39 AM EDT) [facility] Sodium 121(L) 135 - 145 mmol/L [facility] Potassium 4.2 3.3 - 5.1 mmol/L [facility] Chloride 84(L) 96 - 108 mmol/L [facility] Carbon Dioxide 21(L) 22 - 29 mmol/L [facility] Anion Gap 20 12 - 20 [facility] Urea Nitrogen (BUN) 26(H) 9 - 16 mg/dL [facility] Creatinine, Serum 2.46(H) 0.5 - 1.4 mg/dL [facility] Creatinine Clr Calc Pharmacy 29.5 [facility] Comment:Provided height and weight: 165.1 cm,97.6 kg.eGFR (calculated from the MDRD study equation) and eCrCl(calculated from the Cockcroft-Gault equation) are based ondifferent parameters and may not yield comparable results.If eCrCl result is absurd, please check patient'sheight/weight. Estimated Glomerular Filt Rate 20 [facility] Comment:Chronic Kidney Disea se: Estimated GFR < 60 mL/min/[id number] Kidney Disease: Estimated GFR < 15 mL/min/1.73m2 Glucose 1,023(HH) 60 - 115 mg/dL [facility] Comment:Critical value for G LEI: Results called to and read khadijahy: MAYRA Person calling: SAM Date: 11-13-24 Time: 1040 Calcium 8.8 8.4 - 10.2 mg/dL [facility] Bilirubin, Total 0.4 0.0 - 1.0 mg/dL [facility] Aspartate Amino Transferase 15 5 - 31 U/L [facility] Alanine Aminotransferase 12 0 - 31 U/L [facility] Total Protein 7.4 6.5 - 8.0 g/dL [facility] Albumin Level 3.9 3.5 - 5.0 g/dL [facility] Alkaline Phosphatase 128(H) 39 - 117 U/L [facility] 11/13/2024 9:39 AM EDT 11/13/2024 9:49 AM EDT us Generic External Data Provider LAB BLOOD ORDERAB LES Final Result [facility] [address] [place] [phone] [phone] * (ABNORMAL) Albumin, Random Urine W/Creatinine (03/28/2024 11:30 AM EDT) Creatinine, Urine 28.16 mg/dL [facility] Microalbumin Urine 29.0 mg/L [facility] Microalbum Creatinine Ratio Ur 102.9(H) <30 ug/mg cr [facility] Comment:Albumin/Creatinine R atio Reference Ranges: Normal: < 30 ug/mg creatinine Microalbuminuria: 30 - 300 ug/mg creatinineClinical Albuminuria: > 300 ug/mg creatinine Urine (Urine, Random) 03/28/2024 11:30 AM EDT 03/28/2024 1:10 PM EDT Brenda Ojeda MD LAB URINE ORDERABLES Final Result [facility] [address] [place] [phone] * (ABNORMAL) Lipid Panel with Reflex to Direct LDL (03/28/2024 11:11 AM EDT) Triglycerides 254(H) <150 mg/dL [facility] Comment:Desirable Triglyceri de: less than 150 mg/dLBorderline High Triglyceride 150-199 mg/dLHigh Triglyceride: 200-499 mg/dLVery High Triglyceride: greater than or equal to 5OO mg/dL Cholesterol 168 <200 mg/dL [facility] Comment:Desirable Cholestero l: less than 200 mg/dLBorderline High Cholesterol: 200-239 mg/dLHigh Cholesterol: greater than 239 mg/dL LDL Cholesterol Calculated 68 <100 mg/dL [facility] Comment:Desirable LDL: less than 100 mg/dLNear Optimal/Above Optimal LDL: 110- 129 mg/dLBorderline High LDL: 130-159 mg/dLHigh LDL: 160-189 mg/dLVery High LDL: greater than or equal to 190 mg/dL HDL Cholesterol 50 >40 mg/dL [facility] Comment:Desirable HDL: great er than 40 mg/dL Note: This HDL assay may give artificially low results in patients with liver disease. Blood 03/28/2024 11:1 1 AM EDT 03/28/2024 1:28 PM EDT us Brenda Ojeda MD LAB BLOOD ORDERABLES Final Result Performing Organization Address City/[facility]/ZIP Co de Phone Number [facility] [address] [place] [phone] * HEPATITIS A,B,C PROFILE (09/26/2019 9:47 [...] ORDERABLE LABS Final Result Performing Organization Address City/[facility] Co de Phone Number [facility] [address] [place] [address], from Last 3 Months or Most Recently Relevant to Health Maintenance Insurance [facility] - [facility] Care Teams [employer] Solution Architect Relationship Specialty Start Date End Date Brenda Tovar MD [address] [place] [address] PCP - General Family Medicine 02/16/19 Eugene Jarvis FNP [address] [place] [address] Nurse Practitioner Family Medicine 06/21/23
--- OUTSIDE RECORDS SUMMARY | 2024-11-15 12:52 | XMS_ITS | Encounter Summary ---
Author Organization [employer] Address [address] [facility] 7 [place] [address] Care Team Providers Care Associate Professor Of Art Name Role Phone Brenda Tovar MD Primary Care Provide r Eugene Jarvis Unavailable Unavailable Reason for Visit * Reason Comments Med Refill Encounter Details Date Type Department Care Team (Late st Contact Info) Description 04/17/2023 Refill [facility] [address] [place], [place] [phone] Dragan Stoner FNP Constipation, unspecified constipation type [...] documented as of this encounter Care Teams Associate Professor Of Art Relationship Specialty Start Date End Date Brenda Tovar MD [address] [place] [address] PCP - General Family Medicine 02/16/19 Eugene Jarvis FNP [address] [facility] [address] Nurse Practitioner Family Medicine 06/21/23 documented as of this encounter
--- OUTSIDE RECORDS SUMMARY | 2024-11-15 12:52 | XMS_ITS | Clinical Summary ---
Author Organization [facility] Address [address] [place] [address] Care Team Providers Care Religious Healer Name Role Phone Unavailable Primary Care Provider [...] or Tdap) 06/25/2032 022 Imm-Pneumococcal Completed 03/03/2024 [id number] Completed 04/28/2024, 05/27, 04/27/2022, Additional history exists [...] Most Recently Relevant to Health Maintenance Insurance [facility] - [facility]ENT[facility]
--- OUTSIDE RECORDS SUMMARY | 2024-11-15 12:52 | XMS_ITS | Encounter Summary ---
Author Organization [employer] Address [address] [place] [address] Care Team Providers Care Hotel Registration Clerk Name Role Phone Brenda Tovar MD Primary Care Provide r Eugene Jarvis Unavailable Unavailable Encounter Details Date Type Department Care Team (Late st Contact Info) Description 11/15/2024 Orders Only GENERIC EXTERNAL DATA [...] with others, in a hotel, in a alf, living outside on the street, on a [...] METABOLIC PANEL Routine 11/15/2024 11:02 AM EDT documented in this encounter Results * (ABNORMAL) Basic Metabolic Panel (11/15/2024 11:02 AM EDT) Sodium 138 135 - 145 mmol/L [facility] Potassium 4.3 3.3 - 5.1 mmol/L [facility] Chloride 104 96 - 108 mmol/L [facility] Carbon Dioxide 26 22 - 29 mmol/L [facility] Anion Gap 12 12 - 20 [facility] Urea Nitrogen (BUN) 10 9 - 16 mg/dL [facility] Creatinine, Serum 0.92 0.5 - 1.4 mg/dL [facility] Estimated Glomerular Filt Rate >60 [facility] Comment:Chronic Kidney Disea se: Estimated GFR < 60 mL/min/1.63m4Jevaex Kidney Disease: Estimated GFR < 15 mL/min/1.73m2 Glucose 288(H) 60 - 115 mg/dL [facility] Calcium 8.3(L) 8.4 - 10.2 mg/dL [facility] 11/15/2024 11:0 2 AM EDT 11/15/2024 11:03 AM EDT us Generic External Data Provider LAB BLOOD ORDERAB LES Final Result [facility] [address] [place] [address] [phone] documented in this encounter Visit Diagnoses Not on filedocumented in this encounter Additional Health Concerns Assessment Noted Time PHQ-9 Depression Total Score: 0 03/03/20 24 11:00 AM EDT documented as of this encounter Care Teams Hotel Registration Clerk Relationship Specialty Start Date End Date Brenda Tovar MD [address] [place] [address] PCP - General Family Medicine 02/16/19 Eugene Jarvis FNP [address] [place] [address] Nurse Practitioner Family Medicine 06/21/23 documented as of this encounter
--- OUTSIDE RECORDS SUMMARY | 2024-11-15 12:52 | XMS_ITS | Encounter Summary ---
Author Organization [employer] Address [address] [facility] [facility] [address] [place] [address] Care Team Providers Care Mold Machine Operator Name Role Phone Brenda Tovar MD Primary Care Provide r Eugene Jarvis Unavailable Unavailable Reason for Visit * Reason Comments Med Refill Encounter Details Date Type Department Care Team ([facility] st Contact Info) Description 05/19/2024 Refill [facility] MEDICINE [address] [place], [place] [phone] Mary Clemente MD [address] [place] [address] Moderate persistent asthma without complication Social History [...] documented as of this encounter Care Teams Mold Machine Operator Relationship Specialty Start Date End Date Brenda Tovar MD [address] [place] [address] PCP - General Family Medicine 02/16/19 Eugene Jarvis FNP [address] [place] [address] Nurse Practitioner Family Medicine 06/21/23 documented as of this encounter
--- OUTSIDE RECORDS SUMMARY | 2024-11-15 12:52 | XMS_ITS | Encounter Summary ---
Author Organization [employer] Address [address] [place] [address] Care Team Providers Care Life Enrichment Director Name Role Phone Brenda Tovar MD Primary Care Provide r Eugene Jarvis Unavailable Unavailable Encounter Details Date Type Department Care Team ([facility] st Contact Info) Description 01/18/2023 Telephone [facility] MEDICINE [address] [place], [place] [phone] Brenda Tovar MD [address] [place], [place] [phone] Social History Tobacco Use Types Packs/Day Years [...] documented as of this encounter Care Teams Life Enrichment Director Relationship Specialty Start Date End Date Brenda Tovar MD [address] [place] [address] PCP - General Family Medicine 02/16/19 Eugene Jarvis FNP [address] [place] [address] Nurse Practitioner Family Medicine 06/21/23 documented as of this encounter
--- OUTSIDE RECORDS SUMMARY | 2024-11-15 12:52 | XMS_ITS | Encounter Summary ---
Author Organization [employer] Address [address] [facility] 7t [place] [address] Care Team Providers Care Brass Cleaner Name Role Phone Brenda Tovar MD Primary Care Provide r Eugene Jarvis Unavailable Unavailable Reason for Visit * Reason Comments Med Refill Encounter Details Date Type Department Care Team ([facility] st Contact Info) Description 08/24/2023 Refill [facility] [address] [place] [address] Brenda Tovar MD [address] [place] [address] Social History Tobacco Use Types Packs/Day Years [...] documented as of this encounter Care Teams Brass Cleaner Relationship Specialty Start Date End Date Brenda Tovar MD [address] [place] [address] PCP - General Family Medicine 02/16/19 Eugene Jarvis FNP [address] [place] [address] Nurse Practitioner Family Medicine 06/21/23 documented as of this encounter
--- OUTSIDE RECORDS SUMMARY | 2024-11-15 12:52 | XMS_ITS | Encounter Summary ---
Author Organization [employer] Address [address] [facility] [address] [place] [address] Care Team Providers Care Food Services Director Name Role Phone Brenda Tovar MD Primary Care Provide r Eugene Jarvis Unavailable Unavailable Reason for Visit * Reason Comments Med Refill Encounter Details Date Type Department Care Team ([facility] st Contact Info) Description 03/13/2024 Refill [facility] MEDICINE [address] [place], [place] [phone] Brenda Tovar MD [address] [place] [address] Moderate persistent asthma without complication Social History [...] with others, in a hotel, in a skilled nursing, living outside on the street, on a [...] documented as of this encounter Care Teams Food Services Director Relationship Specialty Start Date End Date Brenda Tovar MD [address] [place] [address] PCP - General Family Medicine 02/16/19 Eugene Jarvis FNP [address] [place] [address] Nurse Practitioner Family Medicine 06/21/23 documented as of this encounter
--- OUTSIDE RECORDS SUMMARY | 2024-11-15 12:52 | XMS_ITS | Encounter Summary ---
Author Organization [employer] Address [address] [place] [address] Care Team Providers Care Insert Cutter Name Role Phone Brenda Tovar MD Primary Care Provide r Eugene Jarvis Unavailable Unavailable Reason for Visit * Reason Comments Med Refill Encounter Details Date Type Department Care Team ([facility] st Contact Info) Description 10/05/2023 Refill [facility] MED[facility]INE [address] [place] [address] Eugene Jarvis FNP Severe recurrent major depression [...] documented as of this encounter Care Teams Insert Cutter Relationship Specialty Start Date End Date Brenda Tovar MD [address] [place] [address] PCP - General Family Medicine 02/16/19 Eugene Jarvis FNP [address] [place] [address] Nurse Practitioner Family Medicine 06/21/23 documented as of this encounter
--- OUTSIDE RECORDS SUMMARY | 2024-11-15 12:52 | XMS_ITS | Encounter Summary ---
Author Organization [employer] Address [address] [place] [address] Care Team Providers Care Packaging Sales Consultant Name Role Phone Brenda Tovar MD Primary Care Provide r Eugene Jarvis Unavailable Unavailable Reason for Visit * Reason Comments Med Refill Encounter Details Date Type Department Care Team ([facility] st Contact Info) Description 10/06/2023 Refill [facility] MEDICINE [address] [place] [address] Eugene Jarvis FNP Severe recurrent major depression [...] documented as of this encounter Care Teams Packaging Sales Consultant Relationship Specialty Start Date End Date Brenda Tovar MD [address] [place] [address] PCP - General Family Medicine 02/16/19 Eugene Jarvis FNP [address] [place] [address] Nurse Practitioner Family Medicine 06/21/23 documented as of this encounter
== END 2024-11-15 10:48 | disposition home or self-care (01) ==
LOC: HO.LAB 10:47
PROVIDERS: PCP Internal Medicine; Visit Provider Internal Medicine
DX: E11.65 Type 2 diabetes mellitus with hyperglycemia (principal); I10 Essential (primary) hypertension; Z79.4 Long term (current) use of insulin
CPT/HCPCS: 36415; 80048; 83036

== ENCOUNTER 2025-01-09 12:45 | Outpatient (AMB) | payer OTHER, SELFPAY ==
--- NOTE | 2025-01-09 13:05 | A.OFFVIS_ITS ---
Vital Signs 01/09/25 13:06 Height 5 ft 5 in Weight 207 lb 3.752 oz BMI 34.5 BP 122/66 Blood Pressure Location Lt brachial Position Sitting Pulse 70 Pulse Source Pulse Oximeter Intake Visit Reasons: 4mth f/up-cta Allergies Penicillins [PENICILLINS] Allergy (Intermediate, Verified 11/13/24 09:35) HIVES ibuprofen Allergy (Unknown, Verified 11/13/24 09:35) unknown penicillin V Allergy (Unknown, Verified 11/13/24 09:35) Unknown NSAIDS (Non-Steroidal Anti-Inflamma [NSAIDS (NON-STEROIDAL ANTI-INFLAMMA] Adverse Reaction (Mild, Verified 11/13/24 09:35) STOMACH UPSET HPI Comments Details: This is a 54-year-old female patient coming in for a follow-up visit. Patient with a history of hypertension, dyslipidemia, and diabetes. Patient was previously seen in the office for atypical chest pains for which patient subsequently underwent a coronary CTA. Today, patient reports feeling well overall and denies any exertional chest pain, shortness of breath, palpitations, dizziness, orthopnea, PND, leg edema, presyncope, or syncope. Patient states she is compliant with all her medications. Patient states that she was referred to our office for the chest pain to be worked up as patient is planned for a oral surgery. Patient is requesting clearance for this. [facility] Medical History Lipoma of abdominal wall T2DM (type 2 diabetes mellitus) Arthritis of knee Restless leg syndrome Sleep apnea Gastritis High cholesterol Hypertension Fibromyalgia Arthritis Migraines Diabetes Asthma Surgical History Hx of fusion of cervical spine Hx of breast biopsy Hx of arthroscopic knee surgery Hx of cholecystectomy History of esophagogastroduodenoscopy (EGD) History of carpal tunnel release Hx of hysterectomy Family History Father No problems noted. Mother HTN (hypertension) Arthritis Diabetes Maternal Aunt Cancer of unknown origin Social History Household Members: Significant Other and Children Housing: Apartment Do you presently have visiting nurse or other home services: Yes ([employer] once weekly) Alcohol intake: never Patient Tobacco Use Status: Current everyday Tobacco user Tobacco use type: Smokeless Tobacco Second Hand Smoke Exposure: No Substance Use Type: Crack/Cocaine service: No Current occupational status: unemployed Current occupation: right handed Review of Systems Const Denies weakness ENT Denies dizziness Card Denies chest pain, Denies chest pain with activity, Denies syncope, Denies rapid heart rate, Denies pedal edema, Denies edema, Denies leg edema, Denies lightheadedness, Denies palpitations, Denies dyspnea, Denies dyspnea on exertion and Denies orthopnea Resp Denies cough, Denies dyspnea and Denies dyspnea on exertion GI Denies hematochezia and Denies change in stool character Musc Denies abnormal gait, Denies muscle cramps, Denies muscle weakness, Denies numbness, Denies radiating pain into limb and Denies tingling Neuro Denies abnormal gait, Denies dizziness, Denies syncope, Denies numbness, Denies tingling and Denies weakness Endo Denies palpitations Physical Exam Vital Signs: Last Vital Signs Pulse 70 01/09/25 13:06 BP 122/66 01/09/25 13:06 BMI result Body Mass Index 34.5 Const General: cooperative, healthy appearing, comfortable and no acute distress Orientation/consciousness: patient oriented x3 HEENT Head: Yes normal to inspection Neck Neck: Yes normal visual inspection, Yes trachea midline and Yes supple Chest Chest palpation & inspection: normal inspection of the chest Resp Effort & Inspection: normal respiratory effort Auscultation: clear to auscultation bilaterally, no crackles, no rales, no rhonchi and no wheezes Cardio Jugular venous distension: no JVD Palpation: normal PMI Rate: regular rate Rhythm: regular rhythm Heart sounds: S1 normal heart sound present, S2 normal heart sound present, no click, no gallops, no murmurs and no rubs Peripheral pulses: Peripheral pulses 2+ throughout GI Inspection: Yes normal to inspection Palpation (GI): Soft to palpation Auscultation: normal bowel sounds Skin General skin exam: no rashes or lesions noted Neuro General: patient oriented x3 Extrem General: Yes normal to inspection, No no pedal edema and No calf tenderness Psych Appearance: grossly normal Mental Status: mental status grossly normal Speech and movement: Normal speech and movement present Assessment & Plan Assessment & Plan (1) Hyperlipidemia, unspecified: Code(s): E78.5 - Hyperlipidemia, unspecified Category: Medical Plan: 12/14/2024-patient underwent coronary CTA that showed mild proximal stenosis in the LAD. It also showed a 4.5 mm nodule in the left upper lobe and a subtle mm ground-glass opacity in the right lower lobe. Patient is to follow up with PCP in regards to this for further monitoring. Patient understands. Most recent LDL from 01/02/2025 at [facility] is at 65. Continue with statin therapy. Ideally, LDL goal less than 70. (2) Hypertension: Code(s): I10 - Essential (primary) hypertension Category: Medical Plan: Blood pressure today is well-controlled. Continue current regimen. Advised monitoring blood pressures at home and keeping a log of it. Ideally, blood pressure goal less than 130/80. (3) T2DM (type 2 diabetes mellitus): Code(s): E11.9 - Type 2 diabetes mellitus without complications Category: Medical Qualifiers: Diabetes mellitus fdc insulin use: with local company intermodal truck driver use Plan: Most recent A1c at 12.8. Continue aggressive diabetes management with an A1c goal less than 7%. (4) Preop cardiovascular exam: Code(s): Z01.810 - Encounter for preprocedural cardiovascular examination Plan: Given above findings and resolution of her symptoms, patient can proceed with her upcoming oral surgery with the consideration that patient is at low to intermediate cardiac risk. We will fax over the EKG, echo, and the coronary CTA to the oral surgeon office at [facility] per patient's request. Advised heart healthy diet, regular exercise, losing weight, med compliance, and aggressive management of vascular risk factors. Follow up in the office on an as-needed basis. In the interim, patient will call the office with any concerns or change in symptoms. This note was generated using voice recognition software. While every effort has been made to ensure accuracy and proper entry level receptionist, there may be occasional errors that could affect the content or meaning of the described symptoms. Coding Level of Care Code Est Pt Level 4 (18266) Complex EM visit Add On G2211 Diagnoses Hyperlipidemia, unspecified E78.5 Hypertension I10 T2DM (type 2 diabetes mellitus) E11.9 Diabetes mellitus local company intermodal truck driver insulin use: with local company intermodal truck driver use Preop cardiovascular exam Z01.810 Time Spent (min) 31 Comment Time spent in reviewing the chart, test results, assessment, counseling and documentation.
[2025-01-09 13:06] VITALS: BP 122/66; PULSE 70; BMI 34.5
--- OUTSIDE RECORDS SUMMARY | 2025-01-09 14:27 | XMS_ITS | Clinical Summary ---
Author Organization [employer] Address [address] [facility] [address] [place] [address] Care Team Providers Care Gunner'S Mate M Name Role Phone Brenda Tovar MD Primary Care Provide r Eugene Jarvis Unavailable Unavailable Allergies Active Allergy Reactions Criticality Noted Date Comments Ibuprofen 02/16/2019 Other reaction(s): Gastritis Penicillin G 02/16/2019 Other reaction(s): Hives / Skin Rash Medications * This document contains information received from the source organization and may not represent a complete record from that organization. Fiasp 100 UNIT/ML solution USE WITH INSULIN PUMP. MAX 45 UNITS PER DAY 023 Active metFORMIN XR (Glucophage-XR) 500 MG 24 hr tablet TAKE 2 TABLETS BY MOUTH TWICE DAILY IN THE MORNING AND EVENING 023 Active DULoxetine (Cymbalta) [address] capsuleIndicati ons:Severe recurrent major depression with psychotic features (CMS/HCC) TAKE 1 CAPSULE BY MOUTH TWICE DAILY IN THE MORNING AND AT BEDTIME 180 capsule 1 023 Active mirtazapine (Remeron) 30 MG tabletIndicatio [...] 3 TIMES A DAY 100 each 5 Active FREESTYLE LITE test strip TEST BLOOD SUGAR 3 TIMES A DAY 100 strip Active Blood Pressure Monitor kitIndications: Primary hypertension Use as directed 3x/week 1 kit Active triamcinolone (Kenalog) 0.1 % creamIndication s:Psoriasis Apply topically if needed in the morning and at bedtime (pain and swelling). 30 g 2 Active Continuous Glucose Sensor (Dexcom G7 Sensor) [facility] USE TO MONITOR BLOOD GLUCOSE CONTINUOUSLY, CHANGE EVERY 10 DAYS, E11.65 Active Gvoke HypoPen 2-Pack 0.5 MG/0.1ML injection [...] more than 4 weeks 45 g 1 024 Active aspirin (Aspirin Low Dose) 81 MG EC tabletIndicatio ns:Primary hypertension TAKE 1 TABLET BY MOUTH EVERY MORNING 90 tablet 3 024 Active Ventolin HFA 108 (90 Base) MCG/ACT inhalerIndicati ons:Moderate persistent asthma without complication INHALE 2 PUFFS BY MOUTH EVERY 4 HOURS NEEDED FOR WHEEZING OR SHORTNESS OF BREATH 18 g 1 Active lisinopril 20 MG tabletIndicatio ns:Primary hypertension TAKE 1 TABLET BY MOUTH EVERY MORNING 90 tablet 3 024 Active omeprazole (PriLOSEC) [address] capsuleIndicati ons:Heartburn TAKE 1 CAPSULE BY MOUTH EVERY MORNING BEFORE BREAKFAST 90 capsule 3 024 Active atorvastatin (Lipitor) 80 MG tabletIndicatio ns:Hypertension , unspecified type TAKE 1 TABLET BY MOUTH EVERY MORNING 90 tablet 1 025 Active clonazePAM (KlonoPIN) 1 MG tablet Take 1 tablet by mouth 2 times daily. Active Easy Touch Pen [place] 31G X 8 MM misc USE DIRECTED TO INJECT INSULIN FOUR TIMES DAILY Active Tresiba FlexTouch 200 UNIT/ML injection INJECT 30 UNITS SUBCUTANEOUS INJECTION DAILY. E11.9 Active fluticasone-chula meterol (AirDuo RespiClick) 232-14 MCG/ACT inhaler INHALE 1 PUFF BY MOUTH TWICE DAILY RINSE MOUTH AFTER USING. Active buPROPion SR (Wellbutrin SR) 100 MG 12 hr tabletIndicatio ns:Mood disorder (CMS/HCC) Take 1 tablet (100 mg) by mouth Once per day. 90 tablet 025 Active gabapentin (Neurontin) 800 MG tabletIndicatio ns:Hypertension , unspecified type TAKE 1 TABLET BY MOUTH THREE TIMES DAILY IN THE MORNING, EVENING, AND BEDTIME 90 tablet 025 Active Mounjaro 7.5 MG/0.5ML solution auto-injectorIn dications:Type 2 diabetes mellitus with hyperglycemia, with long-term current use of insulin (CMS/HCC) Inject 7.5 mg under the skin 1 (one) time per week. 2 mL 1 025 Active rOPINIRole (Requip) 0.25 MG tabletIndicatio ns:Restless Leg Syndrome Take 1 tablet by mouth at bedtime 90 tablet 025 Active aspirin-acetami nophen-caffeine (Excedrin Migraine) 250-250-65 MG tabletIndicatio ns:Chronic migraine with aura without status migrainosus, not intractable Take 1 tablet by mouth every 12 (twelve) hours if needed for headaches for up to 15 days. 30 tablet 025 2024 Active QUEtiapine (SEROquel) 300 MG tabletIndicatio ns:Mood disorder (CMS/HCC) TAKE 2 TABLETS BY MOUTH EVERY DAY AT BEDTIME 180 tablet 025 2024 Discontinued rOPINIRole (Requip) 0.25 MG tabletIndicatio ns:Mood disorder (CMS/HCC) TAKE 1 TABLET BY MOUTH AT BEDTIME 90 tablet 025 2024 Discontinued(R eorder (will not trigger notification to Pharmacy)) Mounjaro 7.5 MG/0.5ML solution auto-injector INJECT 7.5 MG SUBCUTANEOUS INJECTION EVERY WEEK. E11.9 025 2024 Discontinued(R eorder (will not trigger notification to Pharmacy)) doxepin (SINEquan) 150 MG capsuleIndicati ons:Mood disorder (CMS/HCC) Take 1 capsule (150 mg) by mouth at bedtime. 90 capsule 025 2024 Discontinued(R eorder (will not trigger notification to Pharmacy)) QUEtiapine (SEROquel) 300 MG tabletIndicatio ns:Mood disorder (CMS/HCC) TAKE 2 TABLETS BY MOUTH EVERY DAY AT BEDTIME 180 tablet 025 2024 Discontinued(R eorder (will not trigger notification to Pharmacy)) QUEtiapine (SEROquel) 300 MG tabletIndicatio ns:Mood disorder (CMS/HCC) Take 1 tablet (300 mg) by mouth at bedtime. 180 tablet 025 2024 Discontinued doxepin (SINEquan) 150 MG capsuleIndicati ons:Mood disorder (CMS/HCC) Take 1 capsule (150 mg) by mouth at bedtime. 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 F/U with Neurologist at [facility] as scheduled. Do not F/U with Neurologist at [place]. ED as needed. Assessment & Plan (05/27/2023 2:47 PM EDT): Unfortunately seems to be progressing. Pt understands the etiology of this, and the probability that it will be chronic. Per [facility], advised to avoid anticholinergics. She will stop Benztropine 2 mg BID. F/U with Neurologist at [facility] as scheduled. Do not F/U with Neurologist at [facility]. ED as needed. Assessment & Plan (05/21/2023 2:29 PM EDT): Do not miss neurology appointment Assessment & Plan (04/27/2023 11:52 AM EDT): Condition may be progressing. Pt understands the etiology of this, and the probability that it will be chronic. She is accepting of this, and has been unwilling to stop antipsychotic. See above for plan: Outpatient referral, Neurology referral, ED as needed. Assessment [...] of this. See above for plan: Outpatient referral, Neurology referral, ED as needed. Assessment [...] use of insulin 11/11/2022 Assessment & Plan (12/29/2024 4:31 PM EDT): Patient reports she is hesitating to use her Mounjaro because it came from pharmacy with the box open, I put a new prescription in for Mounjaro 7.5 mg weekly I advised to use it as prescribed and follow-up with endocrinology regarding this and insulin doses I advised to drink plenty of water and keep being adherent to diabetic diet Assessment & Plan (07/04/2024 5:08 PM EST): [...] so we will not schedule F/U with [facility] Psych[facility]. She agrees with the [...] She has started with therapist at [facility], and they are awaiting copies [...] reviewed). She will F/U ROXANA with [facility] for counseling and med mgt. F/U with Neurologist at [facility] per PCP. Also discussed option of seeking care at [facility] ED if movement disorder is intolerable. [...] medications. She has been referred to [facility] for counseling and med mgt, and has been given their phone number to call and request expedited appointment. She will also F/U with Neurologist at [facility] per PCP. Also discussed option of seeking care at [facility] ED if movement disorder is intolerable. [...] medications. She has been referred to [facility] for counseling and med mgt, and has been given their phone number to call and request expedited appointment. She will also F/U with Neurologist at [facility] per PCP. Also discussed option of seeking care at [facility] ED if movement disorder is intolerable. [...] medications. She has been referred to [facility] for counseling and med mgt, and has been given their phone number to call and request expedited appointment. She will also F/U with Neurologist at [facility] per PCP. Also discussed option of seeking care at [facility] ED if movement disorder is intolerable. [...] from mother. PLAN: 1. Follow up with [facility]: Not recommended for follow-up 2. Patient goal [...] Requesting therapist support and referral to outpatient agency for counseling and med mgt. Could also [...] no med changes, but we will request [facility] clinician outreach. F/u with me in [...] consulting health care provider Mood disorder 06/22/2022 Assessment & Plan (12/29/2024 4:32 PM EDT): Continue to follow with psychiatry and therapist, I will reach out to psychiatrist office for refills for her Seroquel and doxepin Neck pain 06/22/2022 Resolved Problems Problem Noted [...] Encounters Date Type Department Care Team Description 12/29/2024 1:00 PM EDT Office Visit [facility] [address] [place] [phone] Brenda Tovar MD Chronic migraine with aura without status migrainosus, not intractable (Primary Dx); Type 2 diabetes mellitus with hyperglycemia, with long-term current use of insulin ([facility]); Mood disorder ([facility]); Restless leg syndrome 12/29/2024 Telephone [facility] [address] [place] [address] [phone] Brenda Tovar MD Medication Question 12/29/2024 Travel 12/28/2024 Telephone [facility] [address] [place] [phone] Brenda Tovar MD Chart prep 12/22/2024 Telephone [facility] [address] [place] [address] [phone] Brenda Tovar MD Results 12/19/2024 Refill [facility] [address] [place], [place] [phone] Kimber Almanzar MD Mood disorder ([facility]/HCC) 12/06/2024 Telephone [facility] [address] [place] [phone] Brenda Tovar MD Appointment Request 12/04/2024 Refill [facility] [address] [place], [place] [phone] Brenda Tovar MD Mood disorder ([facility]); Hypertension, unspecified type 12/01/2024 Patient Outreach [facility] [address] [place] [address] Brenda Tovar MD Transition Of Care (Tcm) (HDF- Scheduled) 12/01/2024 Telephone [facility] [address] [place] [address] Brenda Tovar MD Hospital Follow-up 11/22/2024 Refill [facility] [address] [place] [address] Kimber Almanzar MD Mood disorder ([facility]) 11/15/2024 Orders Only GENERIC EXTERNAL DATA DEPARTMENT Provider, Generic External Data 11/13/2024 Orders Only GENERIC EXTERNAL DATA DEPARTMENT Provider, Generic External Data 10/24/2024 Refill [facility] [address] [place] [address] Kimber Almanzar MD Hypertension, unspecified type; Type 2 diabetes mellitus with hyperglycemia, with long-term current use of insulin ([facility]) 10/24/2024 Refill [facility] [address] [place] [address] Brenda Tovar MD Type 2 diabetes mellitus with hyperglycemia, with long-term current use of insulin ([facility]) from Last 3 Months Immunizations Immunization Administration Dates Next Due Influenza injectable quadriv [...] Sign Reading Time Taken Comments Blood Pressure 119/78 12/29/2024 1:11 PM EDT Pulse 82 12/29/2024 1:11 PM EDT Temperature 37.1 ??C (98.7 ??F) 12/29/2024 1:11 PM ED T Respiratory Rate 17 12/29/2024 1:11 PM EDT Oxygen Saturation 98% 12/29/2024 1:11 PM EDT Inhaled Oxygen Concentration - - Weight 94.8 kg (209 lb) 12/29/2024 1:11 PM EDT Height 165.1 cm (5' 5 ) 12/29/2024 1:11 PM EDT Body Mass Index 34.78 12/29/2024 1:11 PM EDT Plan of Treatment Health Maintenance Due Date Last Done Comments CT Colonography 1968 Colonoscopy 1968 Colorectal Cancer Screening 1968 Dental Oral Exam 1968 Dental Prophylaxis 1968 Dental X-Ray: Bitewings 1968 Dental X-Ray: Full Mouth 1968 FIT DNA/Cologuard 1968 FIT 1968 FOBT 1968 HIV Screening 1968 Sigmoidoscopy 1968 Disability Screening 1968 Diabetes: Foot Exam 1978 Hepatitis B Vaccines (1 of 3 - 19+ 3-dose series) 1987 Pap Smear 1989 HPV/Cotest 1998 Mammogram 2008 SDOH Screening 12/09/2024 12/10/2023 Diabetes: Hemoglobin A1C 02/14/20252 025, 11/13/2024, 04/28/2024, Additional history exists Alcohol/Substance Use Screening 03/03/2025 03/03/2024 Depression Screening 03/03/2025 03/03/2024, 03/03/20 24 Diabetes: Urine Protein Screening 03/28/2025 03/28/2024, 12/08/2022, 02/15/2020 Lipid Panel 03/28/2025 03/28/2024, 11/23, 05/22/2021, Additional history exists Tobacco Screening 12/29/2025 12/29/2024 Eye Exam 08/04/2026 08/04/2024, 07/26, 08/04/2024, Additional [...] patient's age to complete this topic Meningococcal B Vaccine Aged Out No l onger eligible based on patient's age to complete [...] Procedure Name Priority Date/Time Associated Diagnosis Comments POCT GLUCOSE Routine 12/29/2024 1:12 PM EDT Type 2 diabetes mellitus with hyperglycemia, with long-term current use of insulin ([facility]) BASIC METABOLIC PANEL Routine 11/15/2024 11:02 AM EDT HEMOGLOBIN A1C Routine 11/15/2024 11:02 AM EDT Type 2 diabetes mellitus with hyperglycemia, with long-term current use of insulin ([facility]) GLUCOSE, WHOLE BLOOD Routine 11/13/2024 [...] hyperglycemia, with long-term current use of insulin ([facility]) LIPID PANEL WITH REFLEX TO DIRECT LDL Routine 03/28/2024 11:11 AM EDT Type 2 diabetes mellitus with hyperglycemia, with long-term current use of insulin ([facility]) ZZZ HISTORICAL HEPATITIS A,B,C PROFILE Routine 09/26/2019 9:47 AM EST from Last 3 Months or Most Recently Relevant to Health Maintenance Results * (ABNORMAL) POCT Glucose (12/29/2024 1:12 PM EDT) Glucose Blood, POC 304(A) 60 - 200 mg/dL QC Media Lot # [id number] Lot# Expiration Date Blood Capillary blood specimen / Unknown 12/29/2024 1:12 PM EDT Brenda Ojeda MD POINT OF CARE TEST EN TER/EDIT ORDERABLES Final Result * (ABNORMAL) Hemoglobin A1c (11/15/2024 11:02 AM EDT) Only the most recent of2 resultswithin the time period is included. Hemoglobin A1c 12.3(H) <6.0 % [facility] Comment:Hemoglobin A1C Refer ence Range Adults: 4.8 - 6.0 % Non diabetic: < 6.0 % Goal: < 7.0 %Additional Action Suggested: > 8.0 %Note: Hemoglobin A1c results are invalid for patients with abnormal amounts of HbF. Blood transfusions may impact the HbA1c concentration in the patient sample. Estimated Average Glucose 306 mg/dL [facility] Comment:eAG = Estimated ave rage glucose which is %A1C expressed asaverage glucose, using the formula of the [id number] Glucose study (ADAG), Diabetes Care, Vol.31,#8,Feb. 2007 Blood Venous blood specimen / Unknown 11/15/2024 11:02 AM EDT 11/15/2024 11:03 AM EDT us Brenda Ojeda MD LAB BLOOD ORDERABLES Final Result Performing Organization Address [facility]/ZIP Co de Phone Number [facility] [address] [place] [address] [phone] * (ABNORMAL) Basic Metabolic Panel (11/15/2024 11:02 AM EDT) Only the most recent of2 resultswithin the time period is included. Sodium 138 135 - 145 mmol/L [facility] Potassium 4.3 3.3 - 5.1 mmol/L [facility] Chloride 104 96 - 108 mmol/L [facility] Carbon Dioxide 26 22 - 29 mmol/L [facility] Anion Gap 12 12 - 20 [facility] Urea Nitrogen (BUN) 10 9 - 16 mg/dL [facility] Creatinine, Serum 0.92 0.5 - 1.4 mg/dL [facility] Estimated Glomerular Filt Rate >60 [facility] Comment:Chronic Kidney Disea se: Estimated GFR < 60 mL/min/1.82j7Unvqma Kidney Disease: Estimated GFR < 15 mL/min/1.73m2 Glucose 288(H) 60 - 115 mg/dL [facility] Calcium 8.3(L) 8.4 - 10.2 mg/dL [facility] 11/15/2024 11:0 2 AM EDT 11/15/2024 11:03 AM EDT us Generic External Data Provider LAB BLOOD ORDERAB LES Final Result Performing Organization Address City/[facility]/ZIP Co de Phone Number [facility] [address] [place] [address] [phone] * (ABNORMAL) Glucose, Whole Blood (11/13/2024 3:23 PM EDT) Only the most recent of4 resultswithin the time period is included. Glucose, Whole Blood 401(HH) 60 - 115 mg/dL [facility] Comment:METER #: [id number] 11/13/2024 3:23 PM EDT 11/13/2024 3:29 PM EDT us Generic External Data Provider LAB BLOOD ORDERAB LES Final Result [facility] [address] [facility] [place] [address] [phone] * CT Soft Tissue Neck w/ Contrast (11/13/2024 11:43 AM EDT) Anatomical Region Laterality Modality Head, Neck Computed Tomogra phy 11/13/2024 11:4 3 AM EDT Narrative 11/13/2024 11:45 AM EDT ? [facility] ?[address] ?[place] [address] ? CT Scan Report ? Signed ? Patient: Vides,Hawthorne E ?MR#: [id number] ?? 74 ? : 1970 ?Acct:[id number] ? Age/Sex: 54 / F ?ADM Date: 11/13/24 ? Loc: HO.ED ? Attending Dr: ? Ordering Physician: Candelaria Johnson ?? Date of Service: 11/13/24 ?? Procedure(s): CT soft tissue neck w IV con ?? Accession Number(s): [id number] ? cc: Brenda Tovar MD; Candelaria Johnson ? Report Number: ?? [id number]: Total DLP = ??674.00 mGy-cm ? CLINICAL [...] 11/13/24 1145 ? DD/ 1143 ? TD/TT: 11/13/24 1143 ? Service Vehicle Operator: ? Procedure Note Donotmicheleinterpreter, Image - 11/13/[address] [address] [address] Scan Report Signed Patient: Jeny Vides EMR#: [id number] 74 : 1970Acct:[id number] Age/Sex: 54 / FADM Date: 11/13/24 Loc: HO.ED Attending Dr: Ordering Physician: Candelaria Johnson Date of Service: 11/13/24 Procedure(s): CT soft tissue neck w IV con Accession Number(s): [id number] cc: Brenda Tovar MD; Candelaria Johnson Report Number: [id number]: Total DLP = 674.00 mGy-cm CLINICAL HISTORY: [...] 11/13/24 1145 DD/ 1143 TD/TT: 11/13/24 1143 Service Vehicle Operator: us [facility] External Provider IMG CT PROCEDURES Edited Result - Final * (ABNORMAL) VENOUS BLOOD GAS (11/13/2024 10:59 AM EDT) VBG pH 7.34 7.32 - 7.43 [facility] Comment:METER #: [id number] additional_comment: Cbmartint VBG PCO2 50 mmHg [facility] Comment:METER #: [id number] additional_comment: Cbmartint VBG PO2 50 mmHg [facility] Comment:METER #: [id number] additional_comment: Cbmartint VBG Base Excess 1.1 mmol/L [facility] Comment:METER #: [id number] additional_comment: Cbmartint VBG HCO3 27(H) 22 - 26 mmol/L [facility] Comment:METER #: [id number] additional_comment: Cbmartint O2 Sat, [place] 78.0 % [facility] Comment:METER #: [id number] additional_comment: Cbmartint 11/13/2024 10:5 9 AM EDT 11/13/2024 11:02 AM EDT Generic External Data Provider LAB BLOOD ORDERAB LES Final Result Performing Organization Address [facility] Co de Phone Number [facility] [address] [place] [phone] * Mononucleosis Test, Qualitative (11/13/2024 10:53 AM EDT) Monotest Negative Negative [facility] 11/13/2024 10:5 3 AM EDT 11/13/2024 10:57 AM EDT Generic External Data Provider LAB BLOOD ORDERAB LES Final Result Performing Organization Address [facility] Co de Phone Number [facility] [address] [place] [address] [phone] * Strep A Nucleic Acid (11/13/2024 9:39 AM EDT) [employer]NOW SERIAL# [id number] [facility] Strep A Nucleic Acid Negative Negative [facility] Comment:All test results mus t [...] LAB MICROBIOLOGY - GENERAL ORDERABLES Final Result [facility] [address] [place] [address] [phone] * SARS-CoV-2 RNA, Influenza A/B, and RSV RNA, Ql NAAT (11/13/2024 9:39 AM EDT) Influenza A PCR NEGATIVE Negative [facility] Influenza B PCR NEGATIVE Negative [facility] Resp Syncy Virus RNA Qual PCR NEGATIVE Negative [facility] SARS COV2 PCR NEGATIVE Negative [facility] Comment:All test results mus t be [...] use by authorized laboratories.Testing performed on the [employer] GeneXpert utilizingreal-time RT-PCR.All SARS CoV2 and positive influenza A/B results arereported to [facility]. 11/13/2024 9:39 AM EDT 11/13/2024 9:49 AM EDT us Generic External Data Provider LAB MICROBIOLOGY - GENERAL ORDERABLES Final Result Performing Organization Address City/[facility]/ZIP Co de Phone Number [facility] [address] [place] [address] [phone] * (ABNORMAL) Beta-Hydroxybutyrate (11/13/2024 9:39 AM EDT) [facility] Beta-Hydroxybu tyrate 0.29(H) 0.02 - 0.27 mmol/L [facility] 11/13/2024 9:39 AM EDT 11/13/2024 9:49 AM EDT us Generic External Data Provider LAB BLOOD ORDERAB LES Final Result Performing Organization Address [facility] de Phone Number [facility] [address] [place] [phone] * (ABNORMAL) CBC auto differential (11/13/2024 9:39 AM EDT) [facility] White Blood Count 10.7 4.8 - 10.8 X10*3/uL [facility] Red Blood Count 4.39 4.20 - 5.50 X10*6/uL [facility] Hemoglobin 11.7(L) 12.0 - 16.0 g/dl [facility] Hematocrit 35.5(L) 37.0 - 47.0 % [facility] Mean Corpuscular Volume 80.9 80.0 - 98.0 fL [facility] Mean Corpuscular Hemoglobin 26.7(L) 27.0 - 33.0 pg [facility] Mean Corpuscular HGB Conc 33.0 31.0 - 35.0 g/dl [facility] Red Cell Distribution Width 13.9 11.0 - 16.0 % [facility] Platelet Count 237 160 - 400 X10*3/uL [facility] Mean Platelet Volume 11.6 9.4 - 12.3 fL [facility] Neutrophils Percent Auto 77.0(H) 45 - 73 % [facility] Imm Gran Pct Auto 0.4 0.0 - 0.4 % [facility] Lymphocytes Percent Auto 15.9(L) 20 - 40 % [facility] Monocytes Percent Auto 4.5 2 - 11 % [facility] Eosinophils Percent Auto 1.9 0 - 4 % [facility] Basophils Percent Auto 0.3 0 - 2 % [facility] NRBC Pct Auto 0.0 0.0 - 0.2 /100WBC [facility] Neutrophils Absolute Auto 8.2 2.0 - 8.3 x10*3/uL [facility] Imm Gran Abs Auto 0.04(H) 0.00 - 0.03 X10*3/uL [facility] Lymphocytes Absolute Auto 1.7 1.2 - 4.9 X10*3/uL [facility] Monocytes Absolute Auto 0.5 0.1 - 1.2 X10*3/uL [facility] Eosinophils Absolute Auto 0.2 0.0 - 0.4 X10*3/uL [facility] Basophils Absolute Auto 0.0 0.0 - 0.2 X10*3/uL [facility] NRBC Abs Auto 0.000 0.0 - 0.012 X10*3/uL [facility] 11/13/2024 9:39 AM EDT 11/13/2024 9:49 AM EDT us Generic External Data Provider LAB BLOOD ORDERAB LES Final Result [facility] [address] [place] [phone] * (ABNORMAL) Sed Rate by Modified Linnette (11/13/2024 9:39 AM EDT) Erythrocyte Sedimentation Rate 55(H) 0 - 20 MM/HR [facility] Comment:Patients with polycy themia and many hemoglobin abnormalitiesmay have depressed sed rates whereas patients with anemiamay have elevated sed rates. 11/13/2024 9:39 AM EDT 11/13/2024 10:12 AM EDT Generic External Data Provider LAB BLOOD ORDERAB LES Final Result Performing Organization Address [facility] de Phone Number [facility] [address] [place] [phone] * (ABNORMAL) C-reactive Protein (11/13/2024 9:39 AM EDT) Pathologist [facility] C Reactive Protein 4.56(H) < or = 0.50 mg/dL [facility] 11/13/2024 9:39 AM EDT 11/13/2024 9:49 AM EDT Generic External Data Provider LAB BLOOD ORDERAB LES Final Result Performing Organization Address [facility] de Phone Number [facility] [address] [place] [phone] * (ABNORMAL) Magnesium (11/13/2024 9:39 AM EDT) Pathologist [facility] Magnesium 1.3(LL) 1.6 - 2.6 mg/dL [facility] Comment:Critical value for t est(s): MAGS Results called to and readback by:MAYRA Person calling:ELLIS Date:11/13/24Time:1248 11/13/2024 9:39 AM EDT 11/13/2024 9:49 AM EDT Generic External Data Provider LAB BLOOD ORDERAB LES Final Result Performing Organization Address [facility] Co de Phone Number [facility] [address] [place] [address] [phone] * (ABNORMAL) Comprehensive Metabolic Panel (11/13/2024 9:39 AM EDT) Pathologist [facility] Sodium 121(L) 135 - 145 mmol/L [facility] Potassium 4.2 3.3 - 5.1 mmol/L [facility] Chloride 84(L) 96 - 108 mmol/L [facility] Carbon Dioxide 21(L) 22 - 29 mmol/L [facility] Anion Gap 20 12 - 20 [facility] Urea Nitrogen (BUN) 26(H) 9 - 16 mg/dL [facility] Creatinine, Serum 2.46(H) 0.5 - 1.4 mg/dL [facility] Creatinine Clr Calc Pharmacy 29.5 [facility] Comment:Provided height and weight: 165.1 cm,97.6 kg.eGFR (calculated from the MDRD study equation) and eCrCl(calculated from the Cockcroft-Gault equation) are based ondifferent parameters and may not yield comparable results.If eCrCl result is absurd, please check patient'sheight/weight. Estimated Glomerular Filt Rate 20 [facility] Comment:Chronic Kidney Disea se: Estimated GFR < 60 mL/min/[id number] Kidney Disease: Estimated GFR < 15 mL/min/1.73m2 Glucose 1,023(HH) 60 - 115 mg/dL [facility] Comment:Critical value for G LEI: Results called to and read backby: MAYRA Person calling: SAM Date: 11-13-24 Time: 1040 Calcium 8.8 8.4 - 10.2 mg/dL [facility] Bilirubin, Total 0.4 0.0 - 1.0 mg/dL [facility] Aspartate Amino Transferase 15 5 - 31 U/L [facility] Alanine Aminotransferase 12 0 - 31 U/L [facility] Total Protein 7.4 6.5 - 8.0 g/dL [facility] Albumin Level 3.9 3.5 - 5.0 g/dL [facility] Alkaline Phosphatase 128(H) 39 - 117 U/L [facility] 11/13/2024 9:39 AM EDT 11/13/2024 9:49 AM EDT us Generic External Data Provider LAB BLOOD ORDERAB LES Final Result [facility] [address] [place] [phone] * (ABNORMAL) Albumin, Random Urine W/Creatinine (03/28/2024 11:30 AM EDT) Creatinine, Urine 28.16 mg/dL [facility] Microalbumin Urine 29.0 mg/L [facility] Microalbum Creatinine Ratio Ur 102.9(H) <30 ug/mg cr [facility] Comment:Albumin/Creatinine R atio Reference Ranges: Normal: < 30 ug/mg creatinine Microalbuminuria: 30 - 300 ug/mg creatinineClinical Albuminuria: > 300 ug/mg creatinine Urine (Urine, Random) 03/28/2024 11:30 AM EDT 03/28/2024 1:10 PM EDT us Brenda Ojeda MD LAB URINE ORDERABLES Final Result [facility] [address] [place] [address] [phone] * (ABNORMAL) Lipid Panel with Reflex to Direct LDL (03/28/2024 11:11 AM EDT) Triglycerides 254(H) <150 mg/dL [facility] Comment:Desirable Triglyceri de: less than 150 mg/dLBorderline High Triglyceride 150-199 mg/dLHigh Triglyceride: 200-499 mg/dLVery High Triglyceride: greater than or equal to 5OO mg/dL Cholesterol 168 <200 mg/dL [facility] Comment:Desirable Cholestero l: less than 200 mg/dLBorderline High Cholesterol: 200-239 mg/dLHigh Cholesterol: greater than 239 mg/dL LDL Cholesterol Calculated 68 <100 mg/dL [facility] Comment:Desirable LDL: less than 100 mg/dLNear Optimal/Above Optimal LDL: 110- 129 mg/dLBorderline High LDL: 130-159 mg/dLHigh LDL: 160-189 mg/dLVery High LDL: greater than or equal to 190 mg/dL HDL Cholesterol 50 >40 mg/dL [facility] Comment:Desirable HDL: great er than 40 mg/dL Note: This HDL assay may give artificially low results in patients with liver disease. Blood 03/28/2024 11:1 1 AM EDT 03/28/2024 1:28 PM EDT us Brenda Ojeda MD LAB BLOOD ORDERABLES Final Result [facility] [address] [place] [phone] * HEPATITIS A,B,C PROFILE (09/26/2019 9:47 [...] ORDERABLE LABS Final Result Performing Organization Address City/[facility]/ZIP Co de Phone Number [facility] [address] from Last 3 Months or Most Recently Relevant to Health Maintenance Insurance [facility] ONE CARE < 65 [place] [id number] DENTAL - [facility] Care Teams Gunner'S Mate M Relationship Specialty Start Date End Date Brenda Tovar MD [address] [place] [address] PCP - General Family Medicine 02/16/19 Eugene Jarvis FNP [address] [place] [address] Nurse Practitioner Family Medicine 06/21/23
== END 2025-01-09 13:27 | disposition home or self-care (01) ==
LOC: HO.HCS 12:46
PROVIDERS: PCP Internal Medicine
DX: E78.5 Hyperlipidemia, unspecified (principal); I10 Essential (primary) hypertension; E11.9 Type 2 diabetes mellitus without complications; Z01.810 Encounter for preprocedural cardiovascular examination
CPT/HCPCS: 99214; G2211

== ENCOUNTER → 2025-01-09 12:45 | Outpatient (BNVA) | payer OTHER, SELFPAY | PROVIDERS: PCP Internal Medicine | DX: Z01.810 Encounter for preprocedural cardiovascular examination (principal); E11.9 Type 2 diabetes mellitus without complications; E78.5 Hyperlipidemia, unspecified; R07.89 Other chest pain | CPT/HCPCS: 99212 ==

== ENCOUNTER 2025-02-16 12:33 | Outpatient (AMB) | payer OTHER, SELFPAY ==
--- OUTSIDE RECORDS SUMMARY | 2025-02-16 12:35 | XMS_ITS | Clinical Summary ---
Author Organization [employer] Address [address] [place] [address] Care Team Providers Care Outreach Counselor Name Role Phone Brenda Tovar MD Primary [...] Glucose Sensor (Dexcom G7 Sensor) [facility] [place] [place] USE TO MONITOR BLOOD GLUCOSE CONTINUOUSLY, CHANGE [...] BEFORE BREAKFAST 90 capsule 3 024 Active clonazePAM (KlonoPIN) 1 MG tablet Take 1 tablet by mouth 2 times daily. 025 Active Easy Touch Pen [place] 31G X 8 MM misc USE DIRECTED [...] Once per day. 90 tablet 025 Active Mounjaro 7.5 MG/0.5ML solution auto-injectorIn dications:Type 2 diabetes mellitus with hyperglycemia, with long-term current use of insulin (CMS/HCC) Inject 7.5 mg under the skin 1 (one) time per week. 2 mL 1 Active rOPINIRole (Requip) 0.25 MG tabletIndicatio ns:Restless Leg Syndrome Take 1 tablet by mouth at bedtime 90 tablet 025 Active gabapentin (Neurontin) 800 MG tabletIndicatio ns:Hypertension , unspecified type TAKE 1 TABLET BY MOUTH THREE TIMES DAILY IN THE MORNING, EVENING, AND BEDTIME 90 tablet 025 Active Pain Reliever Plus 250-250-65 MG tabletIndicatio ns:Chronic migraine with aura without status migrainosus, not intractable TAKE 1 TABLET BY MOUTH EVERY TWELVE HOURS NEEDED FOR HEADACHE FOR UP TO 15 DAYS 30 tablet 025 Active atorvastatin (Lipitor) 80 MG tabletIndicatio ns:Hypertension , unspecified type TAKE 1 TABLET BY MOUTH EVERY MORNING 90 tablet 1 025 Active atorvastatin (Lipitor) 80 MG tabletIndicatio ns:Hypertension , unspecified type TAKE 1 TABLET BY MOUTH EVERY MORNING 90 tablet 1 025 2024 Discontinued aspirin-acetami nophen-caffeine (Excedrin Migraine) 250-250-65 MG tabletIndicatio ns:Chronic migraine with aura without status migrainosus, not intractable Take 1 tablet by mouth every 12 (twelve) hours if needed for headaches for up to 15 days. 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 F/U with Neurologist at [facility] as scheduled. Do not F/U with Neurologist at [facility] ED as needed. Assessment & Plan (05/27/2023 2:47 PM EDT): Unfortunately seems to be progressing. Pt understands the etiology of this, and the probability that it will be chronic. Per [facility], advised to avoid anticholinergics. She will stop Benztropine 2 mg BID. F/U with Neurologist at [facility] as scheduled. Do not F/U with Neurologist at [facility] ED as needed. Assessment & Plan (05/21/2023 [...] so we will not schedule F/U with [facility]. She agrees with the [...] bedtime. She has started with therapist at [facility], and they are awaiting copies of medical [...] (risk/benefit reviewed). She will F/U ROXANA with [facility] for counseling and med mgt. F/U with Neurologist at [facility] per PCP. Also discussed option of seeking care at [facility] ED if movement disorder is intolerable. [...] psychiatric medications. She has been referred to [facility] for counseling and med mgt, and has been given their phone number to call and request expedited appointment. She will also F/U with Neurologist at [facility] per PCP. Also discussed option of seeking care at [facility] ED if movement disorder is intolerable. [...] psychiatric medications. She has been referred to [facility] for counseling and med mgt, and has been given their phone number to call and request expedited appointment. She will also F/U with Neurologist at [facility] per PCP. Also discussed option of seeking care at [facility] ED if movement disorder is intolerable. [...] psychiatric medications. She has been referred to [facility] for counseling and med mgt, and has been given their phone number to call and request expedited appointment. She will also F/U with Neurologist at [facility] per PCP. Also discussed option of seeking care at [facility] ED if movement disorder is intolerable. [...] from mother. PLAN: 1. Follow up with [facility]: Not recommended for follow-up 2. Patient goal [...] Requesting therapist support and referral to outpatient [facility] for counseling and med mgt. [...] no med changes, but we will request [facility] clinician outreach. F/u with me in [...] Encounters Date Type Department Care Team Description 02/13/2025 Refill [facility] [address] [place], [place] [phone] Brenda Tovar MD Hypertension, unspecified type 02/08/2025 Refill [facility] [address] [place], [place] [phone] Brenda Tovar MD Hypertension, unspecified type 02/06/2025 Refill [facility] [address] [place], [place] [phone] Brenda Tovar MD Chronic migraine with aura without status migrainosus, not intractable 02/06/2025 Telephone [facility] [address] [place], [place] [phone] Brenda Tovar MD 02/01/2025 Telephone [facility] [address] [place] [phone] Brenda Tovar MD Durable Medical Equipment ([facility] One [employer]: Cane, Hand held shower head, Long side bedrails /) 01/16/2025 Refill [facility] [address] [place] [phone] Brenda Tovar MD Hypertension, unspecified type 12/29/2024 1:00 PM EDT Office Visit [facility] [address] [place] [phone] Brenda Tovar MD Chronic migraine with aura without status migrainosus, not intractable (Primary Dx); Type 2 diabetes mellitus with hyperglycemia, with long-term current use of insulin (CMS/[facility]); Mood disorder ([facility]); Restless leg syndrome 12/29/2024 Telephone [facility] [address] [place] [phone] Brenda Tovar MD Medication Question 12/29/2024 Travel 12/28/[address] [phone] Brenda Tovar MD Chart prep 12/22/[address] [phone] Brenda Tovar MD Results 12/19/2024 Refill [facility] [address] [place] [phone] Kimber Almanzar MD Mood disorder ([facility]/HCC) 12/06/2024 Telephone [facility] [address] [place] [phone] Brenda Tovar MD Appointment Request 12/04/2024 Refill [facility] [address] [place] [phone] Brenda Tovar MD Mood disorder ([facility]/HCC); Hypertension, unspecified type 12/01/2024 Patient Outreach [facility] [address] [place] [phone] Brenda Tovar MD Transition Of Care (Tcm) (HDF- Scheduled) 12/01/2024 Telephone [facility] [address] [place] [phone] Brenda Tovar MD Hospital Follow-up 11/22/2024 Refill [facility] [address] [place] [address] Kimber Almanzar MD Mood disorder (CMS/HCC) from Last 3 Months Immunizations Immunization Administration [...] with others, in a hotel, in a fci, living outside on the street, on a [...] 82 12/29/2024 1:11 PM EDT Temperature 37.1 C (98.7 F) 12/29/2024 1:11 PM EDT Respiratory Rate 17 12/29/2024 1:11 PM EDT [...] SDOH Screening 12/09/2024 12/10/2023 Diabetes: Hemoglobin A1C 02/14/2025 025, 11/13/2024, 04/28/2024, Additional history exists Alcohol/Substance Use Screening 03/03/2025 03/03/2024 Depression Screening 03/03/2025 03/03/2024, 03/03/20 24 Influenza Vaccine (#1) 2025 , 06/14/2023, 04/23/2022, Additional history exists Diabetes: Urine Protein Screening 03/28/2025 03/28/2024, 12/08/2022, [...] Completed 04/28/2024, , 04/27/2022, Additional history exists Cervical Cancer Screening Discontinued [...] hyperglycemia, with long-term current use of insulin ([facility]) HEMOGLOBIN A1C Routine 11/15/2024 11:02 AM EDT Type 2 diabetes mellitus with hyperglycemia, with long-term current use of insulin ([facility]) ALBUMIN, RANDOM URINE W/CREATININE Routine 03/28/2024 11:30 AM EDT Type 2 diabetes mellitus with hyperglycemia, with long-term current use of insulin ([facility]) LIPID PANEL WITH REFLEX TO DIRECT LDL Routine 03/28/2024 11:11 AM EDT Type 2 diabetes mellitus with hyperglycemia, with long-term current use of insulin ([facility]) ZZZ HISTORICAL HEPATITIS A,B,C PROFILE Routine 09/26/2019 9:47 AM EST from Last 3 Months or Most Recently Relevant to Health Maintenance Results * (ABNORMAL) POCT Glucose (12/29/2024 1:12 PM EDT) Glucose Blood, POC 304(A) 60 - 200 mg/dL QC Media Lot # [id number] Lot# Expiration Date Blood Capillary blood specimen / Unknown 12/29/2024 1:12 PM EDT us Brenda Ojeda MD POINT OF CARE TEST EN TER/EDIT ORDERABLES Final Result * (ABNORMAL) Hemoglobin A1c (11/15/2024 11:02 AM EDT) Hemoglobin A1c 12.3(H) <6.0 % [facility] Comment:Hemoglobin A1C Refer ence Range Adults: 4.8 - 6.0 % Non diabetic: < 6.0 % Goal: < 7.0 %Additional Action Suggested: > 8.0 %Note: Hemoglobin A1c results are invalid for patients with abnormal amounts of HbF. Blood transfusions may impact the HbA1c concentration in the patient sample. Estimated Average Glucose 306 mg/dL [facility] Comment:eAG = Estimated ave rage glucose which is %A1C expressed asaverage glucose, using the formula of the [id number] Glucose study (ADAG), Diabetes Care, Vol.31,#8,2007 Blood Venous blood specimen / Unknown 11/15/2024 11:02 AM EDT 11/15/2024 11:03 AM EDT us Brenda Ojeda MD LAB BLOOD ORDERABLES Final Result Performing Organization Address City/State/[facility] Co de Phone Number [facility] [address] [place] [phone] * (ABNORMAL) Albumin, Random Urine W/Creatinine (03/28/2024 11:30 AM EDT) Creatinine, Urine 28.16 mg/dL [facility] Microalbumin Urine 29.0 mg/L [facility] Microalbum Creatinine Ratio Ur 102.9(H) <30 ug/mg cr [facility] Comment:Albumin/Creatinine R atio Reference Ranges: Normal: < 30 ug/mg creatinine Microalbuminuria: 30 - 300 ug/mg creatinineClinical Albuminuria: > 300 ug/mg creatinine Urine (Urine, Random) 03/28/2024 11:30 AM EDT 03/28/2024 1:10 PM EDT us Brenda Ojeda MD LAB URINE ORDERABLES Final Result Performing Organization Address [facility] Co de Phone Number [facility] [address] [place] [address] [phone] * (ABNORMAL) Lipid Panel with Reflex to Direct LDL (03/28/2024 11:11 AM EDT) Triglycerides 254(H) <150 mg/dL [facility] Comment:Desirable Triglyceri de: less than 150 mg/dLBorderline High Triglyceride 150-199 mg/dLHigh Triglyceride: 200-499 mg/dLVery High Triglyceride: greater than or equal to 5OO mg/dL Cholesterol 168 <200 mg/dL [facility] Comment:Desirable Cholestero l: less than 200 mg/dLBorderline High Cholesterol: 200-239 mg/dLHigh Cholesterol: greater than 239 mg/dL LDL Cholesterol Calculated 68 <100 mg/dL [facility] Comment:Desirable LDL: less than 100 mg/dLNear Optimal/Above Optimal LDL: 110- 129 mg/dLBorderline High LDL: 130-159 mg/dLHigh LDL: 160-189 mg/dLVery High LDL: greater than or equal to 190 mg/dL HDL Cholesterol 50 >40 mg/dL [facility] Comment:Desirable HDL: great er than 40 mg/dL Note: This HDL assay may give artificially low results in patients with liver disease. Blood 03/28/2024 11:1 1 AM EDT 03/28/2024 1:28 PM EDT us Brenda Ojeda MD LAB BLOOD ORDERABLES Final Result Performing Organization Address [facility]/ZIP Co de Phone Number [facility] [address] [place] [phone] [phone] * HEPATITIS A,B,C PROFILE (09/26/2019 9:47 [...] ORDERABLE LABS Final Result Performing Organization Address City/State/[facility] Co de Phone Number [facility] [address] [place] [address], from Last 3 Months or Most Recently Relevant to Health Maintenance Insurance [facility] < 63 [facility] Care Teams Outreach Counselor Relationship Specialty Start Date End Date Brenda Tovar MD [address] [place] [address] PCP - General Family Medicine 02/16/19 Eugene Jarvis FNP [address] [place] [address] Nurse Practitioner Family Medicine 06/21/23
--- OUTSIDE RECORDS SUMMARY | 2025-02-16 12:35 | XMS_ITS | Clinical Summary ---
Author Organization [facility] Address [address] [place] [address] Care Team Providers Care Curriculum Consultant Name Role Phone Unavailable Primary Care Provider [...] 03/11/2025 03/09/2024 Dental Prophy 03/11/2025 03/09/2024, 09/08/2023 Imm-Influenza (#1) 2025 04/28/2024, 1 08/14/2022, 04/23/2022, Additional history exists Hypertension Screening (#1) 05/04/2025 Diabetes Screening 04/28/2027 04/28/2024, 1 , 03/28/2024, Additional history exists Lipid Screening 12/09/2027 12/08/2022 Dental FMX/Pano 10/29/2028 10/28/2023, 09/08/2023 Imm-DTaP/Tdap/Td (2 - Td or Tdap) 06/25/2032 022 Imm-Pneumococcal 50+ Completed 03/03/2024 [id number] Completed 04/28/2024, 05/27, 04/27/2022, Additional history exists Cervical Ablation/Cold-Knife Conization Discontinued [...] Most Recently Relevant to Health Maintenance Insurance [facility]
--- NOTE | 2025-02-16 12:59 | MHC.OFFVIS ---
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 She has a history of cervical fusion surgery, which was performed several years ago. Last year, she experienced debilitating left shoulder pain for which a nerve block was attempted, but it provided no relief. Patient believes she did not completely understood that previous diagnostic injection by our office was diagnostic and not therapeutic. She is willing to repeat it for potential RFA or Sprint PNS trial. The patient has tried physical therapy, home exercises, and muscle relaxants without significant improvement. Orthopedic consultation led to a shoulder injection under fluoroscopy, which also did not alleviate her symptoms. She reports that her left shoulder pain is worse than the right, with limited range of motion and difficulty performing overhead activities. The patient has a history of diabetes mellitus, currently managed with an insulin pump. Her last recorded HbA1c was 12.3%, which is above the target for optimal management. Due to her elevated HbA1c, certain interventional procedures are currently not feasible. She also has a history of tardive dyskinesia, bipolar disorder, and schizophrenia, for which she is under psychiatric care and adheres to her medication regimen. - Onset: Chronic bilateral shoulder pain, left worse than right - Quality: Debilitating pain with limited range of motion, aching, sharp, shooting, throbbing - Location: Primarily in the shoulders, left more severe - Exacerbating factors: Overhead activities, lifting, pulling, sleeping on left side, pushing, touching the back of neck or lower back - Relieving factors: None noted from previous interventions - Interference: Difficulty with daily activities such as cooking and washing hair or back, putting on clothes - Affect: Pain impacts daily activities and quality of life - Analgesia: Gabapentin, Tylenol, topical creams; previous interventions ineffective - Adverse Effects: None reported from pain management interventions - Activities of Daily Living: Pain limits ability to perform tasks such as cooking and personal hygiene - Aberrant Drug Related Behaviors: Denies use of illicit substances. PRIOR 09/20/23: Patient presents today to assess response to Left suprascapular nerve block on 08/03/[address] Carlson. Patient reports 0% pain relief since procedure. Patient reports increase in her left shoulder pain since injections which also exacerbated her fibromyalgia symptoms. Patient reports she fell on ice on 08/23/23 and landed on her left side and injured her left knee. She reports chronic bilateral knee pain. We will proceed with obtaining xrays of her knees. She is very hesitant to any further injections at this time. Patient is allergic to NSAIDs and notes Tylenol and ice therapy has not been effective. Denies any recent cough, cold, infection, fever, or any other significant changes in her medical history, medications or recent hospitalizations. Past Procedures: 08/03/23: Left suprascapular nerve block-0% pain relief PRIOR Suzette 07/06/23: Jeny is a very pleasant 48-year-old female who presents the office today, accompanied by her significant other, for evaluation management of her chronic left shoulder pain. Patient reports that she has been suffering with this pain for many years. She is currently on gabapentin and methocarbamol without relief of her pain. She recently saw orthopedics and did not receive any treatment, was referred to Neurology. Patient's primary care doctor referred her to and [facility], she is waiting for an appointment in their office. She has tried physical therapy in the past, reports that it did not work. She has had injection of steroids in the past that also did not provide any benefit. She reports that home exercises are too painful. She endorses pain with any use of the left arm. She states she has numbness and tingling to the left hand, she did have nerve conduction study May of 2022, results as per below. Patient has a documented history of fibromyalgia, she is currently awaiting appointment with a neurologist at [facility]. Patient reports 10/10 left shoulder pain, worse with any movement. She also endorses mid and lower back pain and pain in both of her legs. In terms of muscle damage condition is described as sharp, shooting, stabbing, aching, burning and tingling. Pain is negatively impacting patient's normal sleep, ability to perform activities of daily living, ability to care for self and function normally. [facility] Medical History Lipoma of abdominal wall T2DM (type 2 diabetes mellitus) Arthritis of knee Restless leg syndrome Sleep apnea Gastritis High cholesterol Hypertension Fibromyalgia Arthritis Migraines Diabetes Asthma Surgical History Hx of fusion of cervical spine Hx of breast biopsy Hx of arthroscopic knee surgery Hx of cholecystectomy History of esophagogastroduodenoscopy (EGD) History of carpal tunnel release Hx of hysterectomy Family History Father No problems noted. Mother HTN (hypertension) Arthritis Diabetes Maternal Aunt Cancer of unknown origin Social History Household Members: Significant Other and Children Housing: Apartment Do you presently have visiting nurse or other home services: Yes ([employer] once weekly) Alcohol intake: never Patient Tobacco Use Status: Current everyday Tobacco user Tobacco use type: Smokeless Tobacco Second Hand Smoke Exposure: No Substance Use Type: Crack/Cocaine service: No Current occupational status: unemployed Current occupation: right handed Review of Systems Const Details: - Musculoskeletal: Reports bilateral shoulder pain, left worse than right - Endocrine: Reports diabetes mellitus, managed with insulin pump - Neurological: Reports tardive dyskinesia - Psychiatric: Reports bipolar disorder and schizophrenia, under treatment All systems reviewed & are unremarkable except as noted in HPI and below Neuro Denies Sensory deficit (Neuro) Physical Exam Vital Signs: Last Vital Signs Pulse 120 H 02/16/25 13:03 BP 146/67 H 02/16/25 13:03 Pulse Ox 95 02/16/25 13:03 Oxygen Delivery Method Room Air 02/16/25 13:03 BMI result Body Mass Index 34.0 General: Appears afebrile. Alert and oriented. Mood and affect appropriate. Follows and participates in conversation appropriately. Respiratory effort is unlabored. No cough. Able to transition from sit to stand unassisted. Ambulates with bilaterally normal heel strike and toe off. Back/Spine/Pelvis Other: Multiple widespread TTPs 16/16 bilaterally, including upper and lower extremities. Cervical Spine: cervical ROM normal, cervical muscular tenderness, pain with cervical ROM (minimal), Cervical spine scars present, No Cervical spine tenderness and No step off deformity Neuro General: Normal light touch and pain sensation Cognition (Neuro): normal cognition Gait exam (Neuro): Normal gait present Motor exam (neuro): 5/5 motor strength present throughout (4/5 LUE due to pain) and Motor abnormalites present tics and tardive dyskinesia Sensory Exam: No Sensory deficit (Neuro) Extrem General: Yes capillary refill normal, Yes no clubbing, cyanosis or edema and Yes no calf tenderness Right upper extremity: shoulder/upper arm Details: normal to inspection, tenderness Location: of the A-C joint and over the subacromial bursa, normal ROM and crepitus; no swelling, no ecchymosis, no deformity and no unusual warmth Left upper extremity: shoulder/upper arm (Pain with I/E rotations. Limited ROM due to pain.) Details: tenderness Location: of the A-C joint, over the biceps tendon, over the subacromial bursa and over the deltoid bursa; no swelling, no ecchymosis, no crepitus, no deformity and no unsual warmth Psych Appearance: grossly normal Mental Status: mental status grossly normal Speech and movement: Normal speech and movement present Affect: normal affect and Anxious affect present Attitude: cooperative Thought process: Normal thought process present Thought content: Normal thought content present Insight: Good insight present (Psych) Judgement: Good judgement present (Psych) Results Reviewed Results Reviewed: FLUOROSCOPIC GUIDED LEFT SHOULDER STEROID INJECTION 05/30/24 INDICATIONS: Left shoulder pain. Intra-articular gadolinium injection is needed prior to MRI. PROCEDURE: Risks and benefits and possible complications were discussed with the patient and the consent form was signed. The patient was placed supine on the fluoroscopy table. The left shoulder was prepped and draped in normal sterile fashion. 1% buffered lidocaine was used for anesthesia. A 22-gauge spinal needle was used to access the shoulder joint. Intra-articular position of the needle within the shoulder joint was verified using 3 cc of Omnipaque 300. A total of 5 mL 1% lidocaine and 40 mg Depo-Medrol was then injected into the shoulder joint. The needle was then removed and a Band-Aid was applied to the injection site. The patient tolerated the procedure well. There were no immediate complications. IMPRESSION: Successful fluoroscopic left shoulder intra-articular steroid injection. XR SHOULDER, LEFT 06/07/23 FINDINGS: Bony alignment and mineralization are normal. The glenohumeral joint is intact and shows mild osteoarthritic change. The acromioclavicular and coracoclavicular intervals are normal. There is moderately severe osteoarthritic change of the acromioclavicular joint. No fracture or dislocation is seen. There is mild cortical irregularity of the greater tuberosity of the proximal left humerus. There is no abnormal soft tissue calcifications or foreign body. No left pneumothorax is seen. IMPRESSION: 1. There is mild osteoarthritic change of the left glenohumeral joint, and moderately severe osteoarthritic change is seen of the left acromioclavicular joint. 2. No fracture or dislocation is seen. 3. There is mild cortical irregularity of the greater tuberosity of the proximal left humerus, which can be associated with rotator cuff impingement. No rebel calcific tendinitis is noted. XR SHOULDER, RIGHT 09/07/22 FINDINGS: Mild glenohumeral and acromioclavicular osteoarthritis. No fracture or suspicious bone lesion. Subscapularis calcific tendinitis and probable calcific tendinitis at the infraspinatus tendon insertion. IMPRESSION: Mild acromioclavicular and glenohumeral osteoarthritis. Calcific tendinitis. Assessment & Plan Assessment & Plan (1) Left shoulder pain: Code(s): M25.512 - Pain in left shoulder Category: Medical (2) Right shoulder pain: Code(s): M25.511 - Pain in right shoulder Category: Medical (3) Fibromyalgia: Code(s): M79.7 - Fibromyalgia Category: Medical (4) Osteoarthritis of shoulders, bilateral: Code(s): M19.011 - Primary osteoarthritis, right shoulder; M19.012 - Primary osteoarthritis, left shoulder Category: Medical Plan The plan for the patient's bilateral shoulder pain includes scheduling diagnostic bilateral suprascapular shoulder injections with local and fluoroscopy to assess for temporary pain relief, which may guide further treatment options such as Sprint PNS trial. We also reviewed RFA procedure. Expectations, risks and benefits were reviewed. Patient is aware she will be contacted to schedule this procedure. Due to the patient's elevated HbA1c, certain interventional procedures are not currently feasible, and she is advised to work on lowering her blood sugar levels to qualify for additional treatments. Patient reports she will follow up with her primary care provider for ongoing diabetes management. All questions and concerns have been answered and patient agreed with the treatment plan. Follow-up after injections and sooner as needed. Patient was informed and verbally consented to the use of an ambient scribe for clinic note documentation during this visit. Orders: Orders XR shoulder LT min 2V 02/16/25 M25.511 - Pain in right shoulder, M25.512 - Pain in left shoulder XR shoulder RT min 2V 02/16/25 M25.511 - Pain in right shoulder, M25.512 - Pain in left shoulder Coding Level of Care Code Est Pt Level 4 (49765) Complex EM visit Add On G2211 Diagnoses Left shoulder pain M25.512 Right shoulder pain M25.511 Fibromyalgia M79.7 Osteoarthritis of shoulders, bilateral M19.011; M19.012
[2025-02-16 13:03] VITALS: BP 146/67; PULSE 120; O2SAT 95; BMI 34.0
== END 2025-02-16 13:27 | disposition home or self-care (01) ==
LOC: HO.PMC 12:33
PROVIDERS: PCP Internal Medicine; Visit Provider Nurse Practitioner Family
DX: M25.512 Pain in left shoulder (principal); M25.511 Pain in right shoulder; M79.7 Fibromyalgia; M19.011 Primary osteoarthritis, right shoulder; M19.012 Primary osteoarthritis, left shoulder
CPT/HCPCS: 99214; G2211

== ENCOUNTER → 2025-02-16 12:33 | Outpatient (BNVA) | payer OTHER, SELFPAY | PROVIDERS: PCP Internal Medicine; Visit Provider Nurse Practitioner Family | DX: M25.512 Pain in left shoulder (principal); M25.511 Pain in right shoulder; M79.7 Fibromyalgia; M19.011 Primary osteoarthritis, right shoulder; M19.012 Primary osteoarthritis, left shoulder; E11.9 Type 2 diabetes mellitus without complications; Z79.4 Long term (current) use of insulin; Z96.41 Presence of insulin pump (external) (internal) | CPT/HCPCS: 99212 ==

== ENCOUNTER 2025-03-13 15:53 | Inpatient (IN) | payer OTHER, SELFPAY ==
[2025-03-13] VITALS (11 sets, daily range): BP systolic 64–110; BP diastolic 38–53; PULSE 86–106; RESP 14–22; TEMP 36.4–36.8; O2SAT 95–99; BMI 36.3
--- NOTE | ~2025-03-13 | CT_ITS ---
CLINICAL HISTORY: falls CT head without contrast Comparison: None available Findings: No acute hemorrhage. No extra-axial fluid collection. No hydrocephalus, mass-effect or herniation. Strauss-white differentiation is maintained. White matter is within normal limits for age. No acute orbital pathology. Mild multifocal frontal scalp soft tissue swelling versus scarring. 2.5 mm radiopaque foreign body in the right frontal scalp. No fracture. Nasal septal defect measuring 1.3 cm in anterior-posterior dimension. Near-complete opacification of the right maxillary sinus may indicate sinusitis. Retention cyst/polyp in the left maxillary sinus. The other visualized paranasal sinuses are predominantly clear. The mastoid air cells are clear. Impression: No acute intracranial findings. This document has been electronically signed by: Pam Melendez MD on 03/13/2025 18:23:23
--- NOTE | ~2025-03-13 | XR_ITS ---
EXAMINATION: XR CHEST CLINICAL INFORMATION: chest pain COMPARISON: February 15, 2023 TECHNIQUE: Frontal view of the chest was obtained. FINDINGS: No significant abnormality is noted involving the heart, lungs, mediastinum, bony thorax or soft tissues. Metal plate and screws are again noted at C6-T1. XR/XR chest 1V IMPRESSION: No acute disease Electronically signed by: Vamsi Montero MD 03/13/2025 04:32 PM EDT
--- NOTE | ~2025-03-13 | US_ITS ---
CLINICAL HISTORY: acute renal failure, pls eval for obstruction Renal ultrasound Comparison: US/SR - US ABDOMEN - 03/10/23 08:14 EDT Findings: The kidneys are normal in echotexture bilaterally. No hydronephrosis. The right kidney is normal in size, measuring 10.6cm in length. The left kidney is normal in size, measuring 10.8cm in length. Increased echogenicity of the liver may indicate hepatic steatosis. Impression: No acute findings. No hydronephrosis. This document has been electronically signed by: Pam Melendez MD on 03/13/2025 21:22:42
--- NOTE | ~2025-03-13 | NM_ITS ---
EXAMINATION: Nuclear medicine lung perfusion exam. CLINICAL INDICATION: Elevated d-dimer. COMPARISON: Chest x-ray 03/13/2025. TECHNIQUE: Following intravenous administration of 4 mCi of 99m Tc MAA, imaging of both lungs were obtained multiple projections. Examination study was not performed. FINDINGS: Normal perfusion seen to both lungs without any segmental or nonsegmental defect. Ventilation study was not performed. NM/NM pul perfusion IMPRESSION: Normal perfusion scan. Electronically signed by: Pablito Varela MD 03/14/2025 10:30 AM EDT
--- NOTE | ~2025-03-13 | CT_ITS ---
CLINICAL HISTORY: falls CT cervical spine without contrast Comparison: None available Findings: Normal alignment. Status post ACDF C5 through C7. Intact hardware No fracture. No severe central spinal canal stenosis. No epidural hematoma. Normal thickness of the prevertebral soft tissues. The lung apices are clear. Impression: No acute findings. This document has been electronically signed by: Pam Melendez MD on 03/13/2025 18:17:20
--- NOTE | 2025-03-13 15:58 | ECG_ITS ---
Test Reason : falls Blood Pressure : */* mmHG Vent. Rate : 105 BPM Atrial Rate : 105 BPM P-R Int : 134 ms QRS Dur : 80 ms QT Int : 340 ms P-R-T Axes : 44 11 35 degrees QTcB Int : 449 ms Sinus tachycardia Possible Left atrial enlargement Borderline ECG When compared with ECG of 28-Apr-2024 10:23, No significant change was found Referred By: Aleksandra Bliss Electronically Signed By: GABINO BROUSSARD MD
[2025-03-13] MEDS: LACTATED RINGERS 3061.74 ML IV (16:29)
[2025-03-13 16:34] LABS: MANUAL DIFF FLAG NO
[2025-03-13 16:38] LABS: Hematocrit 36.6 % (37.0-47.0); Hemoglobin 11.8 g/dl (12.0-16.0); Imm Gran Abs Auto 0.05 X10*3/uL (0.00-0.03); Imm Gran Pct Auto 0.4 % (0.0-0.4); Lymphocytes Absolute Auto 2.2 X10*3/uL (1.2-4.9); Mean Corpuscular HGB Conc 32.2 g/dl (31.0-35.0); Mean Corpuscular Hemoglobin 26.8 pg (27.0-33.0); Mean Corpuscular Volume 83.2 fL (80.0-98.0); NRBC Abs Auto 0.000 X10*3/uL (0.0-0.012); NRBC Pct Auto 0.0 /100WBC (0.0-0.2); Platelet Count 329 X10*3/uL (160-400); Red Blood Count 4.40 X10*6/uL (4.20-5.50); White Blood Count 14.1 X10*3/uL (4.8-10.8)
[2025-03-13 16:39] LABS: Glucose, Whole Blood 213 mg/dL (60-115)
[2025-03-13 16:41] LABS: Venous Blood Gas Refer to POC result
[2025-03-13 16:42] LABS: VBG HCO3 22 mmol/L (22-26); VBG O2 % Saturation 98.0 %
[2025-03-13 16:51] LABS: INTERNATIONAL NORM RATIO 0.9 (0.9-1.1); Prothrombin Time 10.5 SEC (10.9-12.4)
[2025-03-13 16:56] LABS: Alanine Aminotransferase 20 U/L (0-31); Albumin Level 4.2 g/dL (3.5-5.0); Alkaline Phosphatase 122 U/L (39-117); Anion Gap 18 (12-20); Aspartate Amino Transferase 101 U/L (5-31); Blood Urea Nitrogen 41 mg/dL (9-16); Calcium 9.5 mg/dL (8.4-10.2); Carbon Dioxide 22 mmol/L (22-29); Chloride 100 mmol/L (96-108); Creatinine Clr Calc Pharmacy 18.8; Estimated Glomerular Filt Rate 12; Magnesium 1.4 mg/dL (1.6-2.6); Potassium 4.2 mmol/L (3.3-5.1); Sodium 136 mmol/L (135-145); Total Protein 7.6 g/dL (6.5-8.0)
[2025-03-13 16:57] LABS: B Type Natriuretic Peptide < 10 pg/mL (<100)
[2025-03-13 17:04] LABS: Troponin-I High Sensitivity 82.8 ng/L (<3.5-17.0)
--- NOTE | 2025-03-13 17:09 | ED.WEAKNESS ---
HPI - Weakness General Chief complaint: Fall Stated complaint: Chest pain Time Seen by Provider: 03/13/25 15:55 Source: patient, family, EMS and old records reviewed Mode of arrival: EMS Limitations: no limitations History of Present Illness ED Provider: LISA GALARZA Narrative: 54 yo female with PMH of HLD, HTN, asthma, IDDM, fibromyalgia, MALLIKA, schizophrenia, on baby aspirin tells me that for the past two days she has been weak, dizzy, chest pressure, falls over the past two days, she did hit her head but no LOC she notes she was on the ground for 15 min yesterday. She denies GIB symptoms, n/v, urinary symptoms. She notes her speech has been more slurred as well since yesterday. She feels dizzy and weak when she stands. She denies any over medication, any ingestions. She came in today finally as when she fell again she couldn't get up and her mom couldn't lift her. No recent travel or procedures MD Complaint: generalized weakness Onset (ago): day(s) (2) Duration: progressively worsening Location: generalized Migration: none Severity: severe Relieving factors: rest Exacerbating factors: movement Context: other Associated symptoms: chest pain, loss of appetite and shortness of breath Related Data Home Medications ?Medication ?Instructions ?Recorded ?Confirmed aspirin 81 mg tablet,delayed 81 mg PO DAILY 06/10/20 03/13/25 release blood-glucose meter #1 ea 06/10/20 09/21/24 blood sugar diagnostic (FreeStyle #10 ea 12/16/20 09/21/24 Lite Strips) lancets 28 gauge #100 ea 12/16/20 09/21/24 pen needle, diabetic 31 gauge x #50 ea 12/16/20 09/21/2410/08 albuterol sulfate 90 mcg/actuation 2 puff PO Q4H PRN Wheezing 11/01/21 03/13/25 aerosol inhaler gabapentin 800 mg tablet 1 tab PO TID 11/01/21 03/13/25 ropinirole 0.25 mg tablet 1 tab PO BEDTIME 11/01/21 03/13/25 clonidine HCl 0.1 mg tablet 0.1 mg PO TID PRN Anxiety 04/21/22 03/13/25 insulin pump cart,cont inf,BT #5 ea 07/06/23 09/21/24 (Omnipod Dash Pods (Gen 4) subcutaneous cartridge) lancets 33 gauge (TRUEplus Lancets) #100 ea 07/06/23 09/21/24 mirtazapine 30 mg tablet 30 mg PO BEDTIME 08/31/23 03/13/25 quetiapine 300 mg tablet 600 mg PO BEDTIME 08/31/23 03/13/25 atorvastatin 80 mg tablet 80 mg PO DAILY 09/21/24 03/13/25 bupropion HCl 100 mg tablet,12 hr 100 mg PO DAILY 09/21/24 03/13/25 sustained-release insulin degludec 100 unit/mL (3 30 unit subcut BEDTIME PRN IF 09/21/24 03/13/25 mL) subcutaneous pen (Tresiba NEEDED FOR HYPERGLYCEMIA FlexTouch U-100 insulin) lisinopril 20 mg tablet 20 mg PO DAILY 09/21/24 03/13/25 metformin 500 mg tablet,extended 1,000 mg PO BID 09/21/24 03/13/25 release 24 hr fluticasone propionate 50 2 spray intranasal BID PRN 11/13/24 03/13/25 mcg/actuation nasal Allergic Symptoms spray,suspension insulin aspart (niacinamide) See Rx Instructions .Route .COMPLEX 11/13/24 03/13/25 (U-100) 100 unit/mL subcutaneous solution (Fiasp U-100 Insulin) omeprazole 20 mg capsule,delayed 20 mg PO DAILY@0630 11/13/24 03/13/25 release clonazepam 1 mg tablet 1 mg PO TID PRN anxiety 03/13/25 03/13/25 deutetrabenazine 6 mg tablet 6 mg PO BID 03/13/25 03/13/25 (Austedo) doxepin 50 mg capsule 50 mg PO BEDTIME 03/13/25 03/13/25 tirzepatide 7.5 mg/0.5 mL 7.5 mg subcut WE 03/13/25 03/13/25 subcutaneous pen injector (Arturo) Previous Rx's ?Medication ?Instructions ?Recorded fluticasone 232 mcg-salmeterol 14 1 inh PO BID #1 ea 02/08/25 mcg/actuation breath activated powdr Allergies Allergy/AdvReac Type Severity Reaction Status Date / Time Penicillins (PENICILLINS) Allergy Intermediate HIVES Verified 03/13/25 16:09 ibuprofen Allergy Unknown unknown Verified 03/13/25 16:09 penicillin V Allergy Unknown Unknown Verified 03/13/25 16:09 NSAIDS (Non-Steroidal AdvReac Mild STOMACH Verified 03/13/25 16:09 Anti-Inflamma (NSAIDS UPSET (NON-STEROIDAL ANTI-INFLAMMA) Review of Systems Review of Systems: Constitutional : No Weight loss, No Fever, No Chills ENT/Mouth : No sore throat, No Rhinorrhea Eyes: No Eye Pain, No Swelling Cardiovascular : pos Chest Pain, pos SOB, no Dyspnea on Exertion, No Orthopnea, No Edema, No Palpitations Respiratory : No Cough, No Sputum Gastrointestinal : pos Nausea, No Vomiting, No Diarrhea, No abdominal Pain, No Hematochezia, No Melena Genitourinary : No Dysuria, No Urinary Frequency Musculoskeletal : No joint pain, No Myalgias, No Joint Swelling Skin : No Skin Lesions, No rash Neuro : No Weakness, No Numbness, pos Dizziness, No Headache All other systems reviewed and are negative [facility] Past Medical History Attestation statement: The following information was validated with the patient. Source: old records reviewed Medical History Lipoma of abdominal wall T2DM (type 2 diabetes mellitus) Arthritis of knee Restless leg syndrome Sleep apnea Gastritis High cholesterol Hypertension Fibromyalgia Arthritis Migraines Diabetes Asthma Surgical History Hx of fusion of cervical spine Hx of breast biopsy Hx of arthroscopic knee surgery Hx of cholecystectomy History of esophagogastroduodenoscopy (EGD) History of carpal tunnel release Hx of hysterectomy Family History Family History Father No problems noted. Mother HTN (hypertension) Arthritis Diabetes Maternal Aunt Cancer of unknown origin Social History Social History (Updated 03/13/25 @ 21:05 by SUSAN Estrada-CATHY) Household Members: Significant Other and Children Housing: Apartment Do you presently have visiting nurse or other home services: Yes ([employer] once weekly) Alcohol intake: never Patient Tobacco Use Status: Current everyday Tobacco user Tobacco use type: Smokeless Tobacco Cigarettes Per Day: 10 Smoked in Last 30 Days: No Second Hand Smoke Exposure: No Use of substances other than those prescribed or required for medical reasons: No Substance Use Type: Crack/Cocaine Substance Use Frequency: Chronic Longstanding Advance Directives: No Advance Directives Information Provided: No Do you have a plan to hurt others: No Plan Patient : No service: No Current occupational status: unemployed Current occupation: right handed Physical Exam Vital Signs: Vital Signs: Last Vital Signs Temp 98.0 F 03/14/25 08:32 Pulse 95 03/14/25 08:32 Resp 16 03/14/25 08:32 BP 123/49 L 03/14/25 08:32 Pulse Ox 95 03/14/25 08:32 O2 Del Method Room Air 03/14/25 08:32 O2 Flow Rate 1 03/13/25 19:54 BMI result Body Mass Index 36.3 Appearance: Alert. Oriented X2 thinks we are in March, moderate acute distress. Slurred speech. she is sedated appearing as well but this could be due to BP Eyes: Pupils equal, round and reactive to light. ENT: Pharynx very dry MM Neck: Normal inspection. Neck supple. CVS: tachycardic heart rate and rhythm. Pulses normal. Respiratory: No respiratory distress. Breath sounds normal. Abdomen: Soft and nontender. Skin: Skin warm and dry. pale skin color. Extremities: No lower extremity edema. Neuro: Oriented X 2. No motor deficit. No sensory deficit. Course Course Course Narrative: BP is improving YEARS algorithm negative, no RV dilation on ECHO, ddimer in 300s, responding to IVF BP is improving she is sleeping at this time I do suspect a component of over medication she did desat to 78% while sleeping she is audibly snoring has MALLIKA responding to fluids asking for food - I am holding food at this time, will continue to monitor, moore ordered given acute renal failure Reevaluation(s) Reevaluation #1: focused exam for sepsis performed at 734pm. signed out to Dr. Mckinney pending repeat trop and lactic acid - hospitalist aware. 734pm Reevaluation #2: Dr. Mckinney: The patient was signed out to me pending the results of a repeat troponin and a repeat lactic acid. Additionally, given the patient's renal failure an ultrasound was done to ensure there were no signs of an obstructive process causing kidney injury. The troponin was flat. The repeat lactate was improved. The ultrasound shows no hydronephrosis. The patient was admitted to the hospitalist service. Medications Administered Generic Name Dose Route Start Last Admin Trade Name Gerardo PRN Reason Stop Dose Admin Heparin Sodium (Porcine) 5,000 unit 03/13/25 21:00 03/14/25 05:01 Heparin Sodium,Porcine 5,000 Unit/Ml Vial SUBCUT 5,000 unit Q8H HALI Administration Lactated Ringer's 1,000 mls @ 125 mls/hr 03/13/25 20:45 03/14/25 04:53 Lr IVCONT 125 mls/hr .Q8H HALI Administration Insulin Glargine 20 unit 03/13/25 21:35 03/13/25 22:06 Insulin Glargine,Hum.Rec.Anlog 100 Unit/Ml 10 Ml Vial SUBCUT 20 unit BEDTIME HALI Administration Insulin Human Lispro 0 unit 03/14/25 07:30 03/14/25 08:38 Insulin Lispro 100 Unit/Ml 3 Ml Vial SUBCUT 10 unit QIDACHS HALI Administration Protocol Sodium Chloride 3 ml 03/14/25 00:00 03/14/25 08:40 0.9 % Sodium Chloride Flush 3 Ml Syringe IVFLUSH Not Given QSHIFT HALI Discontinued Medications Generic Name Dose Route Start Last Admin Trade Name Gerardo PRN Reason Stop Dose Admin Ceftriaxone Sodium 1 gm 03/13/25 16:21 03/13/25 16:31 Ceftriaxone Sodium 1 Gm Vial IVPUSH 03/13/25 16:22 1 gm ONCE ONE Administration Lactated Ringer's 3,061.74 mls @ 3,061.74 mls/hr 03/13/25 16:21 03/13/25 17:45 Lr 30 ml/kg infuse over 1 hr (3061.74 ml) 03/13/25 17:20 Infused IV Infusion .Q1H ONE Magnesium Sulfate 2 gm in 50 mls @ 25 mls/hr 03/13/25 16:59 03/13/25 18:59 Magnesium Sulfate/H2o IV 03/13/25 18:58 Infused ONCE ONE Infusion Lactated Ringer's 1,000 mls @ 100 mls/hr 03/13/25 17:45 03/13/25 21:36 Lr IVCONT Infused .Q10H HALI Infusion Lactated Ringer's 1,000 mls @ 999 mls/hr 03/13/25 21:00 03/13/25 23:15 Lr IV 03/13/25 22:00 Infused .Q1H1M HALI Infusion Medical Decision Making Medical Decision Making [facility] Narrative: 54 yo female with PMH of HLD, HTN, asthma, IDDM, fibromyalgia, MALLIKA, schizophrenia, on baby aspirin here with c/o frequent falls, dizziness, chest pain, she is hypotensive on arrival I have done bedside ECHO which shows a flat IVC but no effusion and no tamponade, RV is not dilated, she denies GIB symptoms will start on 30cc/kg bolus, CXR, UA, CT head / cspine. PE study pending Cr if negative ddimer she is low probability. She also has slurred speech this could be related to stroke but most likely hypoperfusion. [address], sepsis protocol in. 30cc/kg bolus ordered Differential Diagnosis Differential Diagnoses: The differential diagnosis associated with the presentation includes JOE, VTE, ACS, pneumonia, UTI, GIB Admission/Observation Consideration of admission/observation: Escalation of care including admission/observation considered plan to admit to hospital Consult Healthcare Provider Management of the patient was discussed with: Hospitalist (will admit Dr. Estes) Lab Data [facility] Lab Attestation statement: I reviewed the patient's lab results. 03/14/25 03:53 03/14/25 03:53 Labs: Lab Results 03/13/25 03/13/25 03/13/25 Range/Units 16:27 16:36 19:28 WBC 14.1 H (4.8-10.8) X10*3/uL RBC 4.40 (4.20-5.50) X10*6/uL Hgb 11.8 L (12.0-16.0) g/dl Hct 36.6 L (37.0-47.0) % MCV 83.2 (80.0-98.0) fL MCH 26.8 L (27.0-33.0) pg MCHC 32.2 (31.0-35.0) g/dl RDW 14.5 (11.0-16.0) % Plt Count 329 D (160-400) X10*3/uL MPV 10.8 (9.4-12.3) fL Immature Gran % (Auto) 0.4 (0.0-0.4) % Neut % (Auto) 77.2 H (45-73) % Lymph % (Auto) 15.9 L (20-40) % Bland % (Auto) 4.9 (2-11) % Eos % (Auto) 1.4 (0-4) % Baso % (Auto) 0.2 (0-2) % Lymph # (Auto) 2.2 (1.2-4.9) X10*3/uL Bland # (Auto) 0.7 (0.1-1.2) X10*3/uL Eos # (Auto) 0.2 (0.0-0.4) X10*3/uL Baso # (Auto) 0.0 (0.0-0.2) X10*3/uL Abs Immat Gran (auto) 0.05 H (0.00-0.03) X10*3/uL Absolute Neuts (auto) 10.9 H (2.0-8.3) x10*3/uL Absolute Nucleated RBC 0.000 (0.0-0.012) X10*3/uL Nucleated RBC % (auto) 0.0 (0.0-0.2) /100WBC PT 10.5 L (10.9-12.4) SEC INR 0.9 (0.9-1.1) D-Dimer High Sensitivty 349 NG/ML VBG pH 7.35 (7.32-7.43) VBG pCO2 38 mmHg VBG pO2 126 mmHg VBG HCO3 22 (22-26) mmol/L VBG O2 Saturation 98.0 % VBG Base Excess -3.0 mmol/L Sodium 136 (135-145) mmol/L Potassium 4.2 (3.3-5.1) mmol/L Chloride 100 (96-108) mmol/L Carbon Dioxide 22 (22-29) mmol/L Anion Gap 18 (12-20) BUN 41 H (9-16) mg/dL Creatinine 4.02 H* (0.5-1.4) mg/dL Estim Creat Clear Calc 18.8 Estimated GFR 12 POC Glucose 213 H (60-115) mg/dL Random Glucose 239 H (60-115) mg/dL Lactic Acid 2.6 H* (0.5-2.0) mmol/L Lactic Acid F/U @ 2Hr 2.0 (0.5-2.0) mmol/L Calcium 9.5 D (8.4-10.2) mg/dL Magnesium 1.4 L* (1.6-2.6) mg/dL Total Bilirubin 0.2 (0.0-1.0) mg/dL Direct Bilirubin < 0.2 (0.0-0.5) mg/dL AST 101 H (5-31) U/L ALT 20 (0-31) U/L Alkaline Phosphatase 122 H (39-117) U/L Total Creatine Kinase 7474 H (26-140) U/L Troponin I High Sens 82.8 H* D 70.8 H* (<3.5-17.0) ng/L B-Natriuretic Peptide < 10 (<100) pg/mL Total Protein 7.6 (6.5-8.0) g/dL Albumin 4.2 (3.5-5.0) g/dL Urine Color Urine Appearance Urine pH (5.0-9.0) Ur Specific [place] (1.005-1.025) Urine Protein (Neg-Trace) mg/dL Urine Glucose (UA) (Negative) mg/dL Urine Ketones (Negative) mg/dL Urine Blood (Negative) Urine Nitrite (Negative) Ur Leukocyte Esterase (Negative) Urine RBC (0-2) /HPF Urine WBC (0-5) /HPF Ur Squamous Epith Cells (0-2) /HPF Urine Bacteria (None Seen) Hyaline Casts (0-2) /LPF Urine Opiates Screen (Not Detect) Ur Buprenorphine Scrn (Not Detect) ng/mL Ur Oxycodone Screen (Not Detect) ng/mL Urine Methadone Screen (Not Detect) ng/mL Urine Fentanyl Screen (Not Detect) Ur Barbiturates Screen (Not Detect) Ur Phencyclidine Scrn (Not Detect) Ur Amphetamines Screen (Not Detect) U Benzodiazepines Scrn (Not Detect) Urine Cocaine Screen (Not Detect) U Marijuana (THC) Screen (Not Detect) Ethyl Alcohol < 10 mg/dL 03/13/25 Range/Units 19:58 WBC (4.8-10.8) X10*3/uL RBC (4.20-5.50) X10*6/uL Hgb (12.0-16.0) g/dl Hct (37.0-47.0) % MCV (80.0-98.0) fL MCH (27.0-33.0) pg MCHC (31.0-35.0) g/dl RDW (11.0-16.0) % Plt Count (160-400) X10*3/uL MPV (9.4-12.3) fL Immature Gran % (Auto) (0.0-0.4) % Neut % (Auto) (45-73) % Lymph % (Auto) (20-40) % Bland % (Auto) (2-11) % Eos % (Auto) (0-4) % Baso % (Auto) (0-2) % Lymph # (Auto) (1.2-4.9) X10*3/uL Bland # (Auto) (0.1-1.2) X10*3/uL Eos # (Auto) (0.0-0.4) X10*3/uL Baso # (Auto) (0.0-0.2) X10*3/uL Abs Immat Gran (auto) (0.00-0.03) X10*3/uL Absolute Neuts (auto) (2.0-8.3) x10*3/uL Absolute Nucleated RBC (0.0-0.012) X10*3/uL Nucleated RBC % (auto) (0.0-0.2) /100WBC PT (10.9-12.4) SEC INR (0.9-1.1) D-Dimer High Sensitivty NG/ML VBG pH (7.32-7.43) VBG pCO2 mmHg VBG pO2 mmHg VBG HCO3 (22-26) mmol/L VBG O2 Saturation % VBG Base Excess mmol/L Sodium (135-145) mmol/L Potassium (3.3-5.1) mmol/L Chloride (96-108) mmol/L Carbon Dioxide (22-29) mmol/L Anion Gap (12-20) BUN (9-16) mg/dL Creatinine (0.5-1.4) mg/dL Estim Creat Clear Calc Estimated GFR POC Glucose (60-115) mg/dL Random Glucose (60-115) mg/dL Lactic Acid (0.5-2.0) mmol/L Lactic Acid F/U @ 2Hr (0.5-2.0) mmol/L Calcium (8.4-10.2) mg/dL Magnesium (1.6-2.6) mg/dL Total Bilirubin (0.0-1.0) mg/dL Direct Bilirubin (0.0-0.5) mg/dL AST (5-31) U/L ALT (0-31) U/L Alkaline Phosphatase (39-117) U/L Total Creatine Kinase (26-140) U/L Troponin I High Sens (<3.5-17.0) ng/L B-Natriuretic Peptide (<100) pg/mL Total Protein (6.5-8.0) g/dL Albumin (3.5-5.0) g/dL Urine Color Yellow Urine Appearance Clear Urine pH 5.5 (5.0-9.0) Ur Specific [place] <= 1.005 (1.005-1.025) Urine Protein 30 (1+) H (Neg-Trace) mg/dL Urine Glucose (UA) Negative (Negative) mg/dL Urine Ketones Negative (Negative) mg/dL Urine Blood Large (3+) H (Negative) Urine Nitrite Negative (Negative) Ur Leukocyte Esterase Large (3+) H (Negative) Urine RBC 0-2 (0-2) /HPF Urine WBC >50 H (0-5) /HPF Ur Squamous Epith Cells 6-10 (0-2) /HPF Urine Bacteria None Seen (None Seen) Hyaline Casts 11-20 (0-2) /LPF Urine Opiates Screen Not Detected (Not Detect) Ur Buprenorphine Scrn Not Detected (Not Detect) ng/mL Ur Oxycodone Screen Not Detected (Not Detect) ng/mL Urine Methadone Screen Not Detected (Not Detect) ng/mL Urine Fentanyl Screen Not Detected (Not Detect) Ur Barbiturates Screen Not Detected (Not Detect) Ur Phencyclidine Scrn Not Detected (Not Detect) Ur Amphetamines Screen Not Detected (Not Detect) U Benzodiazepines Scrn Not Detected (Not Detect) Urine Cocaine Screen POSITIVE H (Not Detect) U Marijuana (THC) Screen Not Detected (Not Detect) Ethyl Alcohol mg/dL Independent Interpretation I performed an independent interpretation of an: EKG, Plain X-Ray (no pneumonia), Ultrasound (no obstruction) and CT Scan (no trauma) Interpretation: Rate: 105 Rhythm: sinus tach [place]: left Normal P waves. Normal DESTIN. Normal QRS complex. ST T wave : inverted t waves aVL, no MIRTHA qTC: 449 prior studies: normal no acute ischemia The study has been interpreted contemporaneously by me. Radiology Impression Discussion of test interpretation with radiology: I have reviewed the radiologist's reading. Independent Historian Clinical information obtained from an independent historian. History obtained from or confirmed by: Parent and EMS External Record Review External record reviewed: Inpatient record and Outpatient record Procedures Procedure Narrative Procedure Narrative: EMERGENCY ULTRASOUND INTERPRETATION-Limited Echocardiography? The study reveals:?flat IVC no tamponade, RV size appears normal, no sig effusion Impression: NO PERICARDIAL EFFUSION Emergent Cardiac for Indication:? Views Used: PLAX, PSSA, A4, SX, IVC Pericardial Effusion/Tamponade Findings: trace RV Dilation (> LV diam in 4ch apical):? NONE Global LV Fxn: NORMAL IVC Dilation and Resp Variation: flat and collapses with respirations Performed by: LISA Date: 03/13/25 Time:530 CPT:71484; Reference Codes? [email or web address] Critical Care Time Critical Care Time Critical Care Time: Yes Total Critical Care Time: 65 Attestation: Time is exclusive of separately billable procedures. Time includes: direct patient care, patient reassessment, coordination of patient care, interpretation of data (laboratory data, pulse oximetry, venous gases and chest xrays/CTscans), review of patient's medical records, medical consultation and documentation of patient care. Procedures excluded from critical care time: central intravenous line placement and electrocardiography. I attest to this time spent taking care of the patient Discharge Plan Discharge Clinical Impression: Falls, Atypical chest pain, JOE (acute kidney injury), Rhabdomyolysis, Cocaine abuse, Acute UTI Patient Disposition: Admitted As Inpatient
[2025-03-13] MEDS: Magnesium Sulfate/H2O 2 GM/50 ML PIGGYBACK IV (17:10)
[2025-03-13 17:37] LABS: D Dimer High Sensitivity 349 NG/ML
[2025-03-13] MEDS: Lactated Ringers 1,000 ML 100 ML IVCONT (17:41)
--- NOTE | 2025-03-13 17:43 | PC.NURSE ---
Patient's own insulin pump removed from patient per provider request. BP flucuating, 60's/40 - 90's/50's, provider aware.
--- OUTSIDE RECORDS SUMMARY | 2025-03-13 17:53 | XMS_ITS | Clinical Summary ---
Author Organization [employer] Address [address] [facility] [address] [place] [address] Care Team Providers Care Accelerator Technician Name Role Phone Brenda Tovar MD [...] Active Continuous Glucose Sensor (Dexcom G7 Sensor) [facility] USE TO MONITOR BLOOD GLUCOSE CONTINUOUSLY, CHANGE [...] times daily. 025 Active Easy Touch Pen Paxton 31G X 8 MM misc USE DIRECTED TO INJECT INSULIN FOUR TIMES DAILY Active Tresiba FlexTouch 200 UNIT/ML injection INJECT 30 UNITS SUBCUTANEOUS INJECTION DAILY. E11.9 Active fluticasone-chula meterol (AirDuo RespiClick) 232-14 MCG/ACT inhaler INHALE 1 PUFF BY MOUTH TWICE DAILY RINSE MOUTH AFTER USING. Active rOPINIRole (Requip) 0.25 MG tabletIndicatio ns:Restless Leg Syndrome Take 1 tablet by mouth at bedtime 90 tablet 025 Active Pain Reliever Plus 250-250-65 MG tabletIndicatio ns:Chronic migraine with aura without status migrainosus, not intractable TAKE 1 TABLET BY MOUTH EVERY TWELVE HOURS NEEDED FOR HEADACHE FOR UP TO 15 DAYS 30 tablet 025 Active atorvastatin (Lipitor) 80 MG tabletIndicatio ns:Hypertension , unspecified type TAKE 1 TABLET BY MOUTH EVERY MORNING 90 tablet 1 025 Active gabapentin (Neurontin) 800 MG tabletIndicatio ns:Hypertension , unspecified type TAKE 1 TABLET BY MOUTH THREE TIMES DAILY IN THE MORNING, EVENING, AND BEDTIME 90 tablet 025 Active Mounjaro 7.5 MG/0.5ML solution auto-injectorIn dications:Type 2 diabetes mellitus with hyperglycemia, with long-term current use of insulin (CMS/HCC) INJECT ONE PEN (=7.5MG) SUBCUTANEOUSLY ONCE A WEEK DIRECTED 2 mL 1 025 Active buPROPion SR (Wellbutrin SR) 100 MG 12 hr tabletIndicatio ns:Mood disorder (CMS/HCC) TAKE 1 TABLET BY MOUTH EVERY MORNING 90 tablet 025 Active atorvastatin (Lipitor) 80 MG tabletIndicatio ns:Hypertension , unspecified type TAKE 1 TABLET BY MOUTH EVERY MORNING 90 tablet 1 025 2024 Discontinued buPROPion SR (Wellbutrin SR) 100 MG 12 hr tabletIndicatio ns:Mood disorder (CMS/HCC) Take 1 tablet (100 mg) by mouth Once per day. 90 tablet 025 2024 Discontinued Mounjaro 7.5 MG/0.5ML solution auto-injectorIn dications:Type 2 diabetes mellitus with hyperglycemia, with long-term current use of insulin (CMS/HCC) Inject 7.5 mg under the skin 1 (one) time per week. 2 mL 1 025 2024 Discontinued gabapentin (Neurontin) 800 MG tabletIndicatio ns:Hypertension , unspecified type TAKE 1 TABLET BY MOUTH THREE TIMES DAILY IN THE MORNING, EVENING, AND BEDTIME 90 tablet 025 2024 Discontinued(R eorder [...] Assessment & Plan (02/26/2023 1:28 PM EDT): beauty counselor about increase fiber and water on her diet GI referral Unstable gait 02/26/2023 Assessment & Plan (02/26/2023 11:15 AM EDT): Rolator walker will be prescribed for patient Tardive dyskinesia 02/08/2023 Assessment & Plan (06/21/2023 10:39 AM EST): Symptoms have improved somewhat, ?r/t discontinuation of Benztropine? F/U with Neurologist at [facility] as scheduled. Do not F/U with Neurologist at [place]. ED as needed. Assessment & Plan (05/27/2023 2:47 PM EDT): Unfortunately seems to be progressing. Pt understands the etiology of this, and the probability that it will be chronic. Per [facility], advised to avoid anticholinergics. She will stop Benztropine 2 mg BID. F/U with Neurologist at [facility] as scheduled. Do not F/U with Neurologist at [facility]. ED as needed. Assessment & Plan (05/21/2023 [...] so we will not schedule F/U with [facility]. She agrees with the plan. [...] has started with therapist at [facility], and they are awaiting copies of medical [...] She will F/U ROXANA with [facility] for counseling and med mgt. F/U with Neurologist at [facility] per PCP. Also discussed option of seeking care at [facility] ED if movement disorder is [...] She has been referred to [facility] for counseling and med mgt, and has been given their phone number to call and request expedited appointment. She will also F/U with Neurologist at [facility] per PCP. Also discussed option of seeking care at [facility] ED if movement disorder is [...] She has been referred to [facility] for counseling and med mgt, and has been given their phone number to call and request expedited appointment. She will also F/U with Neurologist at [facility] per PCP. Also discussed option of seeking care at [facility] ED if movement disorder is [...] She has been referred to [facility] for counseling and med mgt, and has been given their phone number to call and request expedited appointment. She will also F/U with Neurologist at [facility] per PCP. Also discussed option of seeking care at [facility] ED if movement disorder is [...] no med changes, but we will request [facility] clinician outreach. F/u with me [...] Encounters Date Type Department Care Team Description 03/12/2025 Refill [facility] [address] [place] [address] Brenda Tovar MD Mood disorder ([facility]) 02/26/2025 Refill [facility] [address] [place] [address] Brenda Tovar MD Type 2 diabetes mellitus with hyperglycemia, with long-term current use of insulin (CMS/[facility]) 02/19/2025 Refill [facility] [address] [place] [address] Brenda Tovar MD Hypertension, unspecified type 02/13/2025 Refill [facility] [address] [place] [address] Brenda Tovar MD Hypertension, unspecified type 02/08/2025 Refill [facility] [address] [place] [address] Brenda Tovar MD Hypertension, unspecified type 02/06/2025 Refill [facility] [address] [place] [address] Brenda Tovar MD Chronic migraine with aura without status migrainosus, not intractable 02/06/2025 Telephone [facility] [address] [place] [address] Brenda Tovar MD 02/01/2025 Telephone [facility] [address] [place] [address] Brenda Tovar MD Durable Medical Equipment ([facility] One Care: Cane, Hand held shower head, Long side bedrails /) 01/16/2025 Refill [facility] [address] [place] [address] Brenda Tovar MD Hypertension, unspecified type 12/29/2024 1:00 PM EDT Office Visit [facility] [address] [place] [phone] Brenda Tovar MD Chronic migraine with aura without status migrainosus, not intractable (Primary Dx); Type 2 diabetes mellitus with hyperglycemia, with long-term current use of insulin (CMS/[facility]); Mood disorder (CMS/[facility]); Restless leg syndrome 12/29/2024 Telephone [facility] [address] [place] [phone] Brenda Tovar MD Medication Question 12/29/2024 Travel 12/28/2024 Telephone [facility] [address] [place] [address] Brenda Tovar MD Chart prep 12/22/2024 Telephone [facility] [address] [place] [address] Brenda Tovar MD Results 12/19/2024 Refill [facility] [address] [place] [address] Kimber Almanzar MD Mood disorder ([facility]) from Last 3 Months Immunizations [...] with others, in a hotel, in a intermediate, living outside on the street, on a [...] Disability Screening 1968 Diabetes: Foot Exam 1978 Alcohol/Substance Use Screening 1980 Hepatitis B Vaccines (1 of 3 - 19+ 3-dose series) 1987 Pap Smear 1989 HPV/Cotest 1998 Mammogram 2008 SDOH Screening 12/09/2024 12/10/2023 Diabetes: Hemoglobin A1C 02/14/2025 025, 11/13/2024, 04/28/2024, Additional history exists Depression Screening 03/03/2025 03/03/2024, 03/03/20 24 Influenza [...] hyperglycemia, with long-term current use of insulin ([facility]) HEMOGLOBIN A1C Routine 11/15/2024 11:02 AM EDT Type 2 diabetes mellitus with hyperglycemia, with long-term current use of insulin ([facility]) ALBUMIN, RANDOM URINE W/CREATININE Routine 03/28/2024 11:30 AM EDT Type 2 diabetes mellitus with hyperglycemia, with long-term current use of insulin ([facility]) LIPID PANEL WITH REFLEX TO DIRECT LDL Routine 03/28/2024 11:11 AM EDT Type 2 diabetes mellitus with hyperglycemia, with long-term current use of insulin ([facility]) ZZZ HISTORICAL HEPATITIS A,B,C PROFILE Routine 09/26/2019 9:47 AM EST from Last 3 Months or Most Recently Relevant to Health Maintenance Results * (ABNORMAL) POCT Glucose (12/29/2024 1:12 PM EDT) Glucose Blood, POC 304(A) 60 - 200 mg/dL QC Media Lot # [id number] Lot# Expiration Date [id number] Blood Capillary blood specimen / Unknown 12/29/2024 1:12 PM EDT Brenda Ojeda MD POINT OF CARE TEST EN TER/EDIT ORDERABLES Final Result * (ABNORMAL) Hemoglobin A1c (11/15/2024 11:02 AM EDT) Hemoglobin A1c 12.3(H) <6.0 % [facility] Comment:Hemoglobin A1C Refer ence Range Adults: 4.8 - 6.0 % Non diabetic: < 6.0 % Goal: < 7.0 %Additional Action Suggested: > 8.0 %Note: Hemoglobin A1c results are invalid for patients with abnormal amounts of HbF. Blood transfusions may impact the HbA1c concentration in the patient sample. Estimated Average Glucose 306 mg/dL [facility] Comment:eAG = Estimated ave rage glucose which is %A1C expressed asaverage glucose, using the formula of the [id number] Glucose study (ADAG), Diabetes Care, Vol.31,#8,Feb. 2007 Blood Venous blood specimen / Unknown 11/15/2024 11:02 AM EDT 11/15/2024 11:03 AM EDT Brenda Ojeda MD LAB BLOOD ORDERABLES Final Result [facility] [address] [place] [phone] * (ABNORMAL) Albumin, Random Urine W/Creatinine (03/28/2024 11:30 AM EDT) Creatinine, Urine 28.16 mg/dL [facility] Microalbumin Urine 29.0 mg/L [facility] Microalbum Creatinine Ratio Ur 102.9(H) <30 ug/mg cr [facility] Comment:Albumin/Creatinine R atio Reference Ranges: Normal: < 30 ug/mg creatinine Microalbuminuria: 30 - 300 ug/mg creatinineClinical Albuminuria: > 300 ug/mg creatinine Urine (Urine, Random) 03/28/2024 11:30 AM EDT 03/28/2024 1:10 PM EDT us Brenda Ojeda MD LAB URINE ORDERABLES Final Result Performing Organization Address [facility] Co de Phone Number [facility] [address] [place] [address] [phone] * (ABNORMAL) Lipid Panel with Reflex to Direct LDL (03/28/2024 11:11 AM EDT) Triglycerides 254(H) <150 mg/dL [facility] Comment:Desirable Triglyceri de: less than 150 mg/dLBorderline High Triglyceride 150-199 mg/dLHigh Triglyceride: 200-499 mg/dLVery High Triglyceride: greater than or equal to 5OO mg/dL Cholesterol 168 <200 mg/dL [facility] Comment:Desirable Cholestero l: less than 200 mg/dLBorderline High Cholesterol: 200-239 mg/dLHigh Cholesterol: greater than 239 mg/dL LDL Cholesterol Calculated 68 <100 mg/dL [facility] Comment:Desirable LDL: less than 100 mg/dLNear Optimal/Above Optimal LDL: 110- 129 mg/dLBorderline High LDL: 130-159 mg/dLHigh LDL: 160-189 mg/dLVery High LDL: greater than or equal to 190 mg/dL HDL Cholesterol 50 >40 mg/dL [facility] Comment:Desirable HDL: great er than 40 mg/dL Note: This HDL assay may give artificially low results in patients with liver disease. Blood 03/28/2024 11:1 1 AM EDT 03/28/2024 1:28 PM EDT us Brenda Ojeda MD LAB BLOOD ORDERABLES Final Result Performing Organization Address [facility]/ZIP Co de Phone Number [facility] [address] [place] [address] [phone] * HEPATITIS A,B,C PROFILE (09/26/2019 9:47 [...] Historical Provider HISTORICAL/NON ORDERABLE LABS Final Result [facility] [address] [place] [address], from Last 3 Months or Most Recently Relevant to Health Maintenance Insurance [facility] < [address] [facility] Care Teams Accelerator Technician Relationship Specialty Start Date End Date Brenda Tovar MD [address] [place] [address] PCP - General Family Medicine 02/16/19 Eugene Jarvis FNP [address] [place] [address] Nurse Practitioner Family Medicine 06/21/23
--- OUTSIDE RECORDS SUMMARY | 2025-03-13 17:53 | XMS_ITS | Clinical Summary ---
Author Organization [facility] Address [address] [place] [address] Care Team Providers Care Sales Recruiting Coordinator Name Role Phone Unavailable Primary Care Provider [...] HPV 1968 Tobacco Cessation Counseling (#1) 1968 Tobacco Screening 1968 HIV Screening 1983 Medicare Annual Wellness [...] Tdap) 06/25/2032 022 Imm-Pneumococcal 50+ Completed 03/03/2024 [id number] Completed 04/28/2024, 05/27, 04/27/2022, Additional history exists [...] Most Recently Relevant to Health Maintenance Insurance [facility]
[2025-03-13 18:32] LABS: Reflex Lactate? Lactic Acid Added
--- NOTE | 2025-03-13 19:27 | PC.NURSE ---
second lactic delayed d/t difficult blood draw, 2nd tech Marcelina at bedside attempting to draw
[2025-03-13 19:47] LABS: ~Lactic Acid-LAB USE ONLY 2.0 mmol/L (0.5-2.0)
[2025-03-13 19:59] LABS: Troponin-I High Sensitivity 70.8 ng/L (<3.5-17.0)
[2025-03-13 20:05] LABS: Appearance Urine Clear; Glucose Urine UA Negative (Negative); PH 5.5 (5.0-9.0); Specific Gravity - Urine <= 1.005 (1.005-1.025); UMIC TRIGGER UACC YES
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
[2025-03-13 20:14] LABS: Cannabinoid Screen Urine Not Detected (Not Detect)
[2025-03-13 20:18] LABS: UACC Culture Trigger YES
[2025-03-13] MEDS: Lactated Ringers 1,000 ML 125 ML IVCONT (21:33)
[2025-03-13] MEDS: Lactated Ringers 1,000 ML 999 ML IV (21:33)
--- NOTE | 2025-03-13 22:04 | PHA.MEDREC ---
Addendum entered by Castro Nolan, PharmD 03/13/25 22:39: MED REC CHECKED BY [facility] Original Note: Pharmacy Consult ? Medication Reconciliation Pharmacy has completed the medication reconciliation. Spoke with pt and she confirmed her medications. Pt confirmed her Fiasp insulin stating she injects up to 120 units daily to her insulin pump and she uses Tresiba still; injecting 30 units at bedtime of that, pt takes Mounjaro once a week on Wednesdays and last took it We 03/07.
[2025-03-13 22:05] LABS: Glucose, Whole Blood 156 mg/dL (60-115)
[2025-03-13] MEDS: Insulin Glargine,Hum.rec.anlog 100 UNIT/ML 10 ML VIAL 20 UNIT SUBCUT (22:06)
--- NOTE | 2025-03-13 22:56 | PC.RT ---
pt refused to wear our cpap tonight.
[2025-03-14] VITALS (11 sets, daily range): BP systolic 97–145; BP diastolic 40–72; PULSE 82–98; RESP 16–20; TEMP 36.3–37.6; O2SAT 92–100
[2025-03-14 04:53] LABS: MANUAL DIFF FLAG NO
[2025-03-14] MEDS: Lactated Ringers 1,000 ML 125 ML IVCONT ×3 (04:53→20:14)
[2025-03-14 04:56] LABS: Hematocrit 31.9 % (37.0-47.0); Hemoglobin 10.4 g/dl (12.0-16.0); Imm Gran Abs Auto 0.03 X10*3/uL (0.00-0.03); Imm Gran Pct Auto 0.3 % (0.0-0.4); Lymphocytes Absolute Auto 1.9 X10*3/uL (1.2-4.9); Mean Corpuscular HGB Conc 32.6 g/dl (31.0-35.0); Mean Corpuscular Hemoglobin 27.2 pg (27.0-33.0); Mean Corpuscular Volume 83.5 fL (80.0-98.0); NRBC Abs Auto 0.000 X10*3/uL (0.0-0.012); NRBC Pct Auto 0.0 /100WBC (0.0-0.2); Platelet Count 232 X10*3/uL (160-400); Red Blood Count 3.82 X10*6/uL (4.20-5.50); White Blood Count 10.5 X10*3/uL (4.8-10.8)
[2025-03-14 05:31] LABS: Alanine Aminotransferase 15 U/L (0-31); Albumin Level 3.4 g/dL (3.5-5.0); Alkaline Phosphatase 108 U/L (39-117); Anion Gap 16 (12-20); Aspartate Amino Transferase 105 U/L (5-31); Blood Urea Nitrogen 31 mg/dL (9-16); Calcium 8.6 mg/dL (8.4-10.2); Carbon Dioxide 23 mmol/L (22-29); Chloride 103 mmol/L (96-108); Creatinine Clr Calc Pharmacy 30.6; Estimated Glomerular Filt Rate 20; Potassium 4.7 mmol/L (3.3-5.1); Sodium 137 mmol/L (135-145); Total Protein 6.3 g/dL (6.5-8.0)
[2025-03-14 07:24] LABS: Glucose, Whole Blood 362 mg/dL (60-115)
[2025-03-14 07:34] LABS: Hemoglobin A1C 250.0003 umol/L; Total Hemoglobin (HGBA1C) 2807.0203 umol/L
[2025-03-14 08:30] LABS: Magnesium 1.7 mg/dL (1.6-2.6)
--- NOTE | 2025-03-14 10:50 | PM.CNNEP ---
History of Present Illness Reason for Consult Consult date: 03/14/25 Chief Complaint Chief complaint: LOC History of Present Illness Narrative: 54 y/o female with a history of CAD/LAD 25% stenosis, DM, HTN, HLD, osteoarthritis, obesity, MALLIKA, COPD/emphysema, tobacco use, substance use disorder, fibromyalgia, schizophrenia. 03/13 mother called EMS as patient fell and was not able to get up, reportedly has had repeated falls for last two weeks. Nephrology consulted for JOE urine tox positive for cocaine CK 7474 03/13, 6493 03/14 creatinine 11/15 was 0.92, 03/13 4.02, 03/14 is 2.47 blood pressures soft on arrival 64/38, today 139/55 she is receiving LR at 125mL/hr, UOP 2600ml this morning since arrival yesterday patient states she is doing ok. denies specific complaints/concerns. Denies regular NSAID use. Review of Systems Constitutional: Denies chills and Reports fatigue Cardiovascular: Denies chest pain, Denies leg edema, Denies lightheadedness and Denies dyspnea Respiratory: Denies dyspnea Gastrointestinal: Denies abdominal pain, Denies constipation, Denies diarrhea, Denies nausea and Denies vomiting Genitourinary: Denies hematuria, Denies difficulty voiding and Denies flank pain Musculoskeletal: Denies muscle cramps and Denies muscle weakness Skin/Breast: Denies rash Endocrine: Reports fatigue PMFSH Past Medical History Medical History Lipoma of abdominal wall T2DM (type 2 diabetes mellitus) Arthritis of knee Restless leg syndrome Sleep apnea Gastritis High cholesterol Hypertension Fibromyalgia Arthritis Migraines Diabetes Asthma Family History Family History Father No problems noted. Mother HTN (hypertension) Arthritis Diabetes Maternal Aunt Cancer of unknown origin Surgical History Surgical History Hx of fusion of cervical spine Hx of breast biopsy Hx of arthroscopic knee surgery Hx of cholecystectomy History of esophagogastroduodenoscopy (EGD) History of carpal tunnel release Hx of hysterectomy Social History Social History (Updated 03/13/25 @ 21:05 by SUSAN Estrada-CATHY) Household Members: Significant Other and Children Housing: Apartment Do you presently have visiting nurse or other home services: Yes ([employer] once weekly) Alcohol intake: never Patient Tobacco Use Status: Current everyday Tobacco user Tobacco use type: Smokeless Tobacco Cigarettes Per Day: 10 Smoked in Last 30 Days: No Second Hand Smoke Exposure: No Use of substances other than those prescribed or required for medical reasons: No Substance Use Type: Crack/Cocaine Substance Use Frequency: Chronic Longstanding Advance Directives: No Advance Directives Information Provided: No Do you have a plan to hurt others: No Plan Patient : No service: No Current occupational status: unemployed Current occupation: right handed Travel History Ebola Risk: Travel/Contact With Anyone From Affected Area/s: No Has Patient Experienced Ebola Symptoms: No Meds Allergies Allergy/AdvReac Type Severity Reaction Status Date / Time Penicillins (PENICILLINS) Allergy Intermediate HIVES Verified 03/13/25 16:09 ibuprofen Allergy Unknown unknown Verified 03/13/25 16:09 penicillin V Allergy Unknown Unknown Verified 03/13/25 16:09 NSAIDS (Non-Steroidal AdvReac Mild STOMACH Verified 03/13/25 16:09 Anti-Inflamma (NSAIDS UPSET (NON-STEROIDAL ANTI-INFLAMMA) Active Medications: Current Medications Acetaminophen (Acetaminophen 325 Mg Tablet) 650 mg PO Q6H PRN PRN Reason: Pain, Mild 1-3,fever,headache Albuterol/Ipratropium (Albuterol/Iprat 2.5/0.5mg 3 Ml Ampul.Neb) 3 ml INHALE Q4H PRN PRN Reason: Shortness of Breath/Wheezing Calcium Carbonate (Calcium Carbonate 750 Mg Tab.Chew) 750 mg PO Q4H PRN PRN Reason: Heartburn Ceftriaxone Sodium (Ceftriaxone Sodium 1 Gm Vial) 1 gm IVPUSH Q24H HALI Dextrose (Dextrose 50 % 25 Gm/50 Ml Syringe) 25 gm IVPUSH Q15M PRN; Protocol PRN Reason: per Hypoglycemia Standing Ord. Glucose (Glucose Gel 15 Gm Gel..Gram.) 15 gm PO Q15M PRN; Protocol PRN Reason: per Hypoglycemia Standing Ord. Heparin Sodium (Porcine) (Heparin Sodium,Porcine 5,000 Unit/Ml Vial) 5,000 unit SUBCUT Q8H [facility] Last Admin: 03/14/25 05:01 Dose: 5,000 unit Lactated Ringer's (Lr) 1,000 mls @ 125 mls/hr IVCONT .Q8H [facility] Last Admin: 03/14/25 04:53 Dose: 125 mls/hr Insulin Glargine (Insulin Glargine,Hum.Rec.Anlog 100 Unit/Ml 10 Ml Vial) 20 unit SUBCUT BEDTIME [facility] Last Admin: 03/13/25 22:06 Dose: 20 unit Insulin Human Lispro (Insulin Lispro 100 Unit/Ml 3 Ml Vial) 0 unit SUBCUT QIDACHS [facility]; Protocol Last Admin: 03/14/25 08:38 Dose: 10 unit Magnesium Hydroxide (Milk Of Magnesia 30 Ml Oral.Susp) 30 ml PO DAILY PRN PRN Reason: Constipation Melatonin (Melatonin 3 Mg Tablet) 6 mg PO BEDTIME PRN PRN Reason: Insomnia Ondansetron HCl (Ondansetron Hcl 4 Mg/2 Ml Vial) 4 mg IVPUSH Q8H PRN PRN Reason: Nausea and Vomiting Polyethylene Glycol (Polyethylene Glycol 3350 17 Gm Powd.Pack) 17 gm PO DAILY PRN PRN Reason: Constipation Sodium Chloride (0.9 % Sodium Chloride Flush 3 Ml Syringe) 3 ml IVFLUSH QSHIFT [facility] Last Admin: 03/14/25 08:40 Dose: Not Given Home Medications ?Medication ?Instructions ?Recorded ?Confirmed ?Last Taken ?Type aspirin 81 mg tablet,delayed 81 mg PO DAILY 06/10/20 03/13/25 03/13/25 History release blood-glucose meter #1 ea 06/10/20 09/21/24 Unknown History blood sugar diagnostic (FreeStyle #10 ea 12/16/20 09/21/24 Unknown History Lite Strips) lancets 28 gauge #100 ea 12/16/20 09/21/24 Unknown History pen needle, diabetic 31 gauge x #50 ea 12/16/20 09/21/24 Unknown History 10/08 albuterol sulfate 90 mcg/actuation 2 puff PO Q4H PRN Wheezing 11/01/21 03/13/25 Unknown History aerosol inhaler gabapentin 800 mg tablet 1 tab PO TID 11/01/21 03/13/25 03/13/25 History ropinirole 0.25 mg tablet 1 tab PO BEDTIME 11/01/21 03/13/25 03/12/25 History clonidine HCl 0.1 mg tablet 0.1 mg PO TID PRN Anxiety 04/21/22 03/13/25 Unknown History insulin pump cart,cont inf,BT #5 ea 07/06/23 09/21/24 Unknown History (Omnipod Dash Pods (Gen 4) subcutaneous cartridge) lancets 33 gauge (TRUEplus Lancets) #100 ea 07/06/23 09/21/24 Unknown History mirtazapine 30 mg tablet 30 mg PO BEDTIME 08/31/23 03/13/25 03/12/25 History quetiapine 300 mg tablet 600 mg PO BEDTIME 08/31/23 03/13/25 03/12/25 History atorvastatin 80 mg tablet 80 mg PO DAILY 09/21/24 03/13/25 03/13/25 History bupropion HCl 100 mg tablet,12 hr 100 mg PO DAILY 09/21/24 03/13/25 03/13/25 History sustained-release insulin degludec 100 unit/mL (3 30 unit subcut BEDTIME PRN IF 09/21/24 03/13/25 03/12/25 History mL) subcutaneous pen (Tresiba NEEDED FOR HYPERGLYCEMIA FlexTouch U-100 insulin) lisinopril 20 mg tablet 20 mg PO DAILY 09/21/24 03/13/25 03/13/25 History metformin 500 mg tablet,extended 1,000 mg PO BID 09/21/24 03/13/25 03/13/25 History release 24 hr fluticasone propionate 50 2 spray intranasal BID PRN 11/13/24 03/13/25 Unknown History mcg/actuation nasal Allergic Symptoms spray,suspension insulin aspart (niacinamide) See Rx Instructions .Route .COMPLEX 11/13/24 03/13/25 03/13/25 History (U-100) 100 unit/mL subcutaneous solution (Fiasp U-100 Insulin) omeprazole 20 mg capsule,delayed 20 mg PO DAILY@0630 11/13/24 03/13/25 03/13/25 History release clonazepam 1 mg tablet 1 mg PO TID PRN anxiety 03/13/25 03/13/25 Unknown History deutetrabenazine 6 mg tablet 6 mg PO BID 03/13/25 03/13/25 03/13/25 History (Austedo) doxepin 50 mg capsule 50 mg PO BEDTIME 03/13/25 03/13/25 03/12/25 History tirzepatide 7.5 mg/0.5 mL 7.5 mg subcut WE 03/13/25 03/13/25 03/07/25 History subcutaneous pen injector (Guruunciaran) Physical Exam Vital Signs: Last Vital Signs Temp 98.0 F 03/14/25 08:32 Pulse 82 03/14/25 12:09 Resp 18 03/14/25 12:09 BP 115/40 L 03/14/25 12:09 Pulse Ox 97 03/14/25 12:09 O2 Del Method Room Air 03/14/25 12:09 O2 Flow Rate 1 03/13/25 19:54 BMI result Body Mass Index 36.3 Const General: no acute distress, awake and lethargic Orientation/consciousness: lethargic Resp Effort & Inspection: normal respiratory effort and able to speak in complete sentences Auscultation: clear to auscultation bilaterally GI Palpation (GI): Soft to palpation and nontender Skin Rashes: no rashes Extrem General: No edema Results Lab Results 03/14/25 03:53 03/14/25 03:53 Lab results: Chemistry 03/13/25 03/14/25 16:27 03:53 Sodium 136 137 Potassium 4.2 4.7 Carbon Dioxide 22 23 BUN 41 H 31 H Creatinine 4.02 H* 2.47 H Calcium 9.5 D 8.6 D Hematology 03/13/25 03/14/25 16:27 03:53 WBC 14.1 H 10.5 Hgb 11.8 L 10.4 L Plt Count 329 D 232 D Urinalysis 03/13/25 19:58 Urine Color Yellow Urine Appearance Clear Urine pH 5.5 Ur Specific [place] <= 1.005 Urine Protein 30 (1+) H Urine Glucose (UA) Negative Urine Ketones Negative Urine Blood Large (3+) H Urine Nitrite Negative Ur Leukocyte Esterase Large (3+) H Urine RBC 0-2 Urine WBC >50 H Ur Squamous Epith Cells 6-10 Hyaline Casts 11-20 Assessment and Plan (1) JOE (acute kidney injury): Status: Acute Plan JOE secondary to rhabdomyolisis from cocaine use improving continue LR at 125ml/hr- maintain UOP of 150-250ml/hr recommend daily electrolyte and renal function studies close I&O monitoring continue supportive care Discussed with Dr Walter. Procedures Date of Service Date of Service: 03/14/25
--- NOTE | 2025-03-14 11:43 | MHC.CM.PN ---
CM met with Patient at bedside and addressed IMM with her, providing Patient with the original and a copy will be placed on the chart. Patient is staying with her Mother but is technically homeless. Patient may benefit from a Recovery Team Consult to assist with disposition. CM has initiated and will follow for dc planning. PCP is Dr. Sue and Patient will require assist with transport at time of dc. Patient has an insulin pump, CPAP and a [employer] 19 hours/week.
[2025-03-14 13:14] LABS: Glucose, Whole Blood 302 mg/dL (60-115)
--- NOTE | 2025-03-14 15:36 | MHC.RECOVRN ---
TW attempted to meet with pt in ED24 to offer support and resources after Addiction Medicine consult placed due to positive tox screen for cocaine. Pt was laying in bed, eyes closed, respirations even and unlabored. Pt was difficult to arouse but did open eyes. When asked if she needed help or support regarding cocaine use she nodded no. Pt was dismissive and returned to rest. TW will attempt to meet with pt again this evening or tomorrow morning and is available for questions, concerns or continued support as needed.
--- NOTE | 2025-03-14 15:44 | MHC.EDTECH ---
Pt transferred to hospital bed. Bedside table and call faulkner within reach.
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
[2025-03-14 18:20] LABS: Glucose, Whole Blood 300 mg/dL (60-115)
[2025-03-14] MEDS: Insulin Glargine,Hum.rec.anlog 100 UNIT/ML 10 ML VIAL 30 UNIT SUBCUT (20:12)
[2025-03-14 21:47] LABS: Glucose, Whole Blood 357 mg/dL (60-115)
[2025-03-14 23:16] LABS: CDiff Gene PCR POSITIVE (Negative)
[2025-03-15] MEDS: Lactated Ringers 1,000 ML 125 ML IVCONT ×2 (00:43→08:57)
[2025-03-15] MEDS: 0.9 % Sodium Chloride Flush 3 ML SYRINGE IVFLUSH ×2 (00:44→21:14)
--- NOTE | 2025-03-15 00:49 | PC.RT ---
pt does not want cpap has been refusing for 2 days. order to be dc'd
[2025-03-15 00:54] LABS: CDIFF Internal ctrl Dots and bkg OK (V); CDiff Toxin Negative (Negative)
[2025-03-15 03:03] VITALS: BP 124/60; PULSE 82; RESP 20; TEMP 36.4; O2SAT 93
--- NOTE | 2025-03-15 04:23 | PC.NURSE ---
Patient very vague upon assment about situation. ALert/orietned x4, reports having more than one fall in the last 6 months but doesnt know why. She reports sometimes she passes out and other times she just falls. When asked about substance use/abuse patient denies and states she doesnt know why her tox screen was positive. She denies any substance abuse programs and states she does not want any information about them which is different than MD note which states she is accepting addiction medicine input. She states she does not have a steady place to live and does not live with her mother but stays with different people. Her skin is intact with small spot of eczema on right fore-arm. No bruising or trauma from falls. NSR on tele. No edema. VSS, lungs cta. She has a moore catheter in place, note states for accurate I/O's. She has been having frequent liquid bowel movements. C-dif panel positive. Placed on contact precautions. All safety measures in place.
[2025-03-15 06:00] VITALS: BMI 35.8
[2025-03-15 07:14] VITALS: BP 118/76; PULSE 86; RESP 18; TEMP 36.4; O2SAT 97
[2025-03-15 07:33] LABS: Glucose, Whole Blood 219 mg/dL (60-115)
[2025-03-15 07:36] LABS: Anion Gap 11 (12-20); Blood Urea Nitrogen 18 mg/dL (9-16); Calcium 8.9 mg/dL (8.4-10.2); Carbon Dioxide 27 mmol/L (22-29); Chloride 105 mmol/L (96-108); Creatinine Clr Calc Pharmacy 67.7; Estimated Glomerular Filt Rate 51; Potassium 4.1 mmol/L (3.3-5.1); Sodium 139 mmol/L (135-145)
[2025-03-15] MEDS: buPROPion HCl XL 150 MG TAB.ER.24H 100 MG PO (08:05)
[2025-03-15] MEDS: Aspirin Enteric Coated 81 MG TABLET.DR PO (08:06)
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
[2025-03-15 09:37] LABS: E. coli EAEC Not Detected (Not Detect.); E. coli EPEC Not Detected (Not Detect.); E. coli ETEC Not Detected (Not Detect.); E. coli STEC Not Detected (Not Detect.); Shigella sp./EIEC Not Detected (Not Detect.)
[2025-03-15 11:06] VITALS: BP 124/58; PULSE 85; RESP 18; TEMP 36.2; O2SAT 100
--- NOTE | 2025-03-15 15:48 | P.EN_ITS ---
Event Note Date of Service: 03/15/25 Event Note: Addiction consult placed for patient to discuss concern for ongoing substance use due to UDS +cocaine. box office agent attempted to meet with patient x2, patient denies substance and declines any intervention or referral. No follow up indicated at this time. Time Spent With Patient Time: Total time managing care of this patient today ____ minutes.
[2025-03-15 15:54] VITALS: BP 142/65; PULSE 84; RESP 20; TEMP 36.6; O2SAT 95
[2025-03-15 16:07] LABS: Glucose, Whole Blood 378 mg/dL (60-115)
[2025-03-15 16:07] LABS: Glucose, Whole Blood 361 mg/dL (60-115)
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
--- NOTE | 2025-03-15 18:50 | PC.NURSE ---
per provider order, moore cath removed at [id number], pt is dt void at [phone] 03/16/25
[2025-03-15 19:34] VITALS: BP 136/63; PULSE 86; RESP 18; TEMP 36.7; O2SAT 96
[2025-03-15 20:13] LABS: Glucose, Whole Blood 226 mg/dL (60-115)
[2025-03-15] MEDS: Insulin Glargine,Hum.rec.anlog 100 UNIT/ML 10 ML VIAL 30 UNIT SUBCUT (21:13)
[2025-03-15 23:42] VITALS: BP 115/49; PULSE 82; RESP 16; TEMP 36.6; O2SAT 97
[2025-03-16] VITALS (7 sets, daily range): BP systolic 112–143; BP diastolic 54–68; PULSE 73–87; RESP 16–20; TEMP 36.1–37.2; O2SAT 95–100; BMI 35.8
[2025-03-16 07:15] LABS: Glucose, Whole Blood 227 mg/dL (60-115)
[2025-03-16] MEDS: Fluticasone/Vilanterol 200/25 BLST.W.DEV 1 PUFF INHALE (07:44)
[2025-03-16] MEDS: Aspirin Enteric Coated 81 MG TABLET.DR PO (08:36)
[2025-03-16] MEDS: buPROPion HCl XL 150 MG TAB.ER.24H PO (08:36)
[2025-03-16] MEDS: 0.9 % Sodium Chloride Flush 3 ML SYRINGE IVFLUSH ×2 (08:42→15:34)
[2025-03-16 08:57] LABS: Alanine Aminotransferase 13 U/L (0-31); Albumin Level 3.6 g/dL (3.5-5.0); Alkaline Phosphatase 98 U/L (39-117); Anion Gap 13 (12-20); Aspartate Amino Transferase 42 U/L (5-31); Blood Urea Nitrogen 16 mg/dL (9-16); Calcium 9.0 mg/dL (8.4-10.2); Carbon Dioxide 31 mmol/L (22-29); Chloride 102 mmol/L (96-108); Creatinine Clr Calc Pharmacy 74.4; Estimated Glomerular Filt Rate 57; Magnesium 1.3 mg/dL (1.6-2.6); Potassium 3.9 mmol/L (3.3-5.1); Sodium 142 mmol/L (135-145); Total Protein 6.7 g/dL (6.5-8.0)
[2025-03-16] MEDS: Magnesium Sulfate/H2O 2 GM/50 ML PIGGYBACK IV (09:35)
[2025-03-16 11:25] LABS: Glucose, Whole Blood 407 mg/dL (60-115)
[2025-03-16 15:58] LABS: Glucose, Whole Blood 335 mg/dL (60-115)
--- NOTE | 2025-03-16 16:06 | MHC.CM.PN ---
Pt. is not ready to DC, waiting for renal input and abnormal labs. CM met with pt. to ask her DCP, she said she will go to her mother's house on [facility] in [place] for a little while until she is feeling better, then she will go to a alf. She will need a ride to her mother's home at [place].
--- NOTE | 2025-03-16 17:06 | HO.PM.IMPN ---
Subjective Subjective Date of Service: 03/16/25 Interval History: diarrhea improved hyperglycemic Mg 1.3 denies cocaine use Review of Systems Review of Systems: Yes all other systems are reviewed and are negative Physical Exam Vital Signs: Vital Signs: Last Vital Signs Temp 97.4 F 03/16/25 15:26 Pulse 80 03/16/25 15:26 Resp 18 03/16/25 15:26 BP 127/58 L 03/16/25 15:26 Pulse Ox 96 03/16/25 15:26 O2 Del Method Room Air 03/16/25 15:26 O2 Flow Rate 1 03/13/25 19:54 BMI result Body Mass Index 35.8 Gen: in no acute distress HEENT: sclera anicteric, moist mucus membranes Neck: supple Lungs: clear to auscultation bilaterally Heart: regular rate and rhythm, no murmurs Abd: soft, non-tender, non-distended Ext: no edema Skin: warm/well-perfused Neuro: alert and oriented x3, no focal findings Psych: appropriate affect Objective Data Active Medications Acetaminophen (Acetaminophen 325 Mg Tablet) 650 mg PO Q6H PRN PRN Reason: Pain, Mild 1-3,fever,headache Albuterol Sulfate (Albuterol Sulfate 90 Mcg 8 Gm Inhaler) 2 puff INHALE Q4H PRN PRN Reason: Wheezing Albuterol/Ipratropium (Albuterol/Iprat 2.5/0.5mg 3 Ml Ampul.Neb) 3 ml INHALE Q4H PRN PRN Reason: Shortness of Breath/Wheezing Aspirin (Aspirin Enteric Coated 81 Mg Tablet.) 81 mg PO DAILY [facility] Last Admin: 03/16/25 08:36 Dose: 81 mg Documented By: BRIDGETTE Atorvastatin Calcium (Atorvastatin Calcium 80 Mg Tablet) 80 mg PO DAILY [facility] Last Admin: 03/16/25 08:36 Dose: 80 mg Documented By: BRIDGETTE Bupropion HCl (Bupropion Hcl Xl 150 Mg Tab.Er.24h) 150 mg PO DAILY [facility] Last Admin: 03/16/25 08:36 Dose: 150 mg Documented By: BRIDGETTE Calcium Carbonate (Calcium Carbonate 750 Mg Tab.Chew) 750 mg PO Q4H PRN PRN Reason: Heartburn Clonazepam (Clonazepam 1 Mg Tablet) 1 mg PO TID PRN PRN Reason: Anxiety Last Admin: 03/14/25 20:13 Dose: 1 mg Documented By: MIGUELANGEL Dextrose (Dextrose 50 % 25 Gm/50 Ml Syringe) 25 gm IVPUSH Q15M PRN; Protocol PRN Reason: per Hypoglycemia Standing Ord. Doxepin HCl (Doxepin Hcl 25 Mg Capsule) 50 mg PO BEDTIME [facility] Last Admin: 03/15/25 21:12 Dose: 50 mg Documented By: REGGIE Fluticasone Propionate (Fluticasone Propionate Nasal 16 Gm [place]) 2 spray NOSTRIL-B BID PRN PRN Reason: Allergic Symptoms Fluticasone/Vilanterol (Fluticasone/Vilanterol 200/25 Blst.W.Dev) 1 puff INHALE RDAILY [facility] Last Admin: 03/16/25 07:44 Dose: 1 puff Documented By: CHANDU Gabapentin (Gabapentin 400 Mg Capsule) 800 mg PO TID [facility] Last Admin: 03/16/25 15:34 Dose: 800 mg Documented By: BRIDGETTE Glucose (Glucose Gel 15 Gm Gel..Gram.) 15 gm PO Q15M PRN; Protocol PRN Reason: per Hypoglycemia Standing Ord. Heparin Sodium (Porcine) (Heparin Sodium,Porcine 5,000 Unit/Ml Vial) 5,000 unit SUBCUT Q8H [facility] Last Admin: 03/16/25 11:46 Dose: 5,000 unit Documented By: BRIDGETTE Insulin Glargine (Insulin Glargine,Hum.Rec.Anlog 100 Unit/Ml 10 Ml Vial) 32 unit SUBCUT BEDTIME [facility] Insulin Human Lispro (Insulin Lispro 100 Unit/Ml 3 Ml Vial) 0 unit SUBCUT QIDACHS [facility]; Protocol Last Admin: 03/16/25 17:05 Dose: 14 unit Documented By: BRIDGETTE Magnesium Hydroxide (Milk Of Magnesia 30 Ml Oral.Susp) 30 ml PO DAILY PRN PRN Reason: Constipation Melatonin (Melatonin 3 Mg Tablet) 6 mg PO BEDTIME PRN PRN Reason: Insomnia Last Admin: 03/14/25 20:14 Dose: 6 mg Documented By: MIGUELANGEL Mirtazapine (Mirtazapine 30 Mg Tablet) 30 mg PO BEDTIME [facility] Last Admin: 03/15/25 21:12 Dose: 30 mg Documented By: REGGIE Omeprazole (Omeprazole 20 Mg Capsule.) 20 mg PO DAILY@0630 [facility] Last Admin: 03/16/25 06:02 Dose: 20 mg Documented By: REGGIE Ondansetron HCl (Ondansetron Hcl 4 Mg/2 Ml Vial) 4 mg IVPUSH Q8H PRN PRN Reason: Nausea and Vomiting Polyethylene Glycol (Polyethylene Glycol 3350 17 Gm Powd.Pack) 17 gm PO DAILY PRN PRN Reason: Constipation Quetiapine Fumarate (Quetiapine Fumarate 300 Mg Tablet) 600 mg PO BEDTIME [facility] Last Admin: 03/15/25 21:12 Dose: 600 mg Documented By: REGGIE Ropinirole HCl (Ropinirole Hcl 0.25 Mg Tablet) 0.25 mg PO BEDTIME [facility] Last Admin: 03/15/25 21:12 Dose: 0.25 mg Documented By: REGGIE Sodium Chloride (0.9 % Sodium Chloride Flush 3 Ml Syringe) 3 ml IVFLUSH QSHIFT [facility] Last Admin: 03/16/25 15:34 Dose: 3 ml Documented By: BRIDGETTE Vancomycin HCl (Vancomycin Hcl 125 Mg Capsule) 125 mg PO Q6H [facility] Last Admin: 03/16/25 15:34 Dose: 125 mg Documented By: BRIDGETTE Labs 03/14/25 03:53 03/16/25 07:07 Labs: Laboratory Results - last 24 hr 03/15/25 03/16/25 03/16/25 20:04 07:02 07:07 Hold Purple Top Anion Gap 13 Estim Creat Clear Calc 74.4 Estimated GFR 57 POC Glucose 226 H 227 H Random Glucose 219 H Calcium 9.0 Magnesium 1.3 L* Total Bilirubin 0.2 AST 42 H ALT 13 Alkaline Phosphatase 98 Total Creatine Kinase 1541 H Total Protein 6.7 Albumin 3.6 03/16/25 03/16/25 03/16/25 07:10 11:15 15:49 Hold Purple Top SEE NOTE Anion Gap Estim Creat Clear Calc Estimated GFR POC Glucose 407 H* 335 H Random Glucose Calcium Magnesium Total Bilirubin AST ALT Alkaline Phosphatase Total Creatine Kinase Total Protein Albumin Microbiology Microbiology Results: Microbiology 03/13/25 16:27 Blood Culture - Preliminary Blood - Venous No growth after 48 hours. 03/13/25 16:27 Blood Culture - Preliminary Blood - Venous No growth after 48 hours. Assessment and Plan (1) Clostridioides difficile diarrhea: Status: Acute Plan d4, 54yo F with CAD, DM2 on insulin pump, HTN, HLD, OA, obesity, MALLIKA not on CPAP, COPD, tobacco abuse, FM, schizophrenia brought in by 911 after pt fell and could not get up on own, admitted for rhabdomyolysis + JOE JOE, prerenal, resolved - resolved after IV fluid resuscitation, likely due to diarrhea C. difficile colitis - vancomycin 03/15-03/29 hypoMg - replete IV/PO, recheck level tomorrow rhabdomyolysis - continue IV fluids, CPK improving hypotension - due to dehydration; resolved with IV fluids troponin indeterminate - flat; no ischemic EKG changes nor symptoms; likely due to renal failure multiple falls - STR recommended, pt declined CAD - statin, ASA DM2 with hyperglycemia - d/c'ed insulin pump, increase basal-bolus insulin, A1c 10.3 ?cocaine abuse - pt denies, will send GC/MS, screen HBV/HCV/HIV COPD tobacco abuse - Breo, nebs, nicotine replacement MALLIKA - CPAP FM - duloxetine, gabapentin mood disorder - bupropion, quetipaine, mirtazapine, clonazepam GERD - PPI VTE ppx - enoxaparin dispo - declines STR, plan home with VNA In my clinical judgment, the patient requires continued inpatient hospitalization for the following reasons: IV hydration, hypoMg Total time managing care of this patient today: 35 minutes. Quality Stroke Does the patient have a stroke diagnosis?: No Reason for No Anti-thrombotic by Day Two: N/A - Med Ordered VTE Prior VTE?: No VTE Risk Level:: Medical - moderate - high VTE Device Contraindication: N/A - Device Ordered VTE Drug Contraindication: N/A - Med Ordered
[2025-03-16] MEDS: Insulin Glargine,Hum.rec.anlog 100 UNIT/ML 10 ML VIAL 32 UNIT SUBCUT (21:05)
[2025-03-16 21:26] LABS: Glucose, Whole Blood 186 mg/dL (60-115)
[2025-03-17 04:00] VITALS: BP 119/57; PULSE 65; RESP 16; TEMP 36.7; O2SAT 97
[2025-03-17 06:00] VITALS: BMI 35.5
[2025-03-17 06:37] LABS: Anion Gap 14 (12-20); Blood Urea Nitrogen 19 mg/dL (9-16); Calcium 8.8 mg/dL (8.4-10.2); Carbon Dioxide 28 mmol/L (22-29); Chloride 102 mmol/L (96-108); Creatinine Clr Calc Pharmacy 70.6; Estimated Glomerular Filt Rate 54; Magnesium 1.7 mg/dL (1.6-2.6); Potassium 3.8 mmol/L (3.3-5.1); Sodium 140 mmol/L (135-145)
[2025-03-17 07:31] VITALS: BP 136/60; PULSE 79; RESP 18; TEMP 36.4; O2SAT 97
[2025-03-17] MEDS: Fluticasone/Vilanterol 200/25 BLST.W.DEV 1 PUFF INHALE (07:34)
[2025-03-17 07:35] VITALS: PULSE 80; RESP 16
[2025-03-17 07:54] LABS: Glucose, Whole Blood 285 mg/dL (60-115)
[2025-03-17] MEDS: 0.9 % Sodium Chloride Flush 3 ML SYRINGE IVFLUSH (08:29)
[2025-03-17 08:45] LABS: HBS Num1 0.80 mIU/mL (0-7.99); HBc Num1 0.06 S/CO (0.00-0.79); HBsAGNum1 0.41 S/CO (0.00-0.99); HIV Num 1 0.06 S/CO (0.00-0.99); Hepatitis B Surface Antigen Negative (Negative); ~HepC Num1 0.27 S/CO (0.00-0.79); ~Hepatitis B Surface Antibody NONREACTIVE (Nonreactive); ~Hepatitis C Antibody Nonreactive (Nonreactive)
[2025-03-17] MEDS: Aspirin Enteric Coated 81 MG TABLET.DR PO (10:01)
[2025-03-17] MEDS: buPROPion HCl XL 150 MG TAB.ER.24H PO (10:03)
[2025-03-17 11:36] LABS: Glucose, Whole Blood 334 mg/dL (60-115)
[2025-03-17 11:40] VITALS: BP 141/80; PULSE 80; RESP 18; TEMP 36.4; O2SAT 93
--- NOTE | 2025-03-17 13:02 | W.MHC.F2F ---
Service Date Service Date: 03/17/25 Encounter Date of encounter: 03/17/25 Reasons for Services Signs and symptoms assessed: see PT evaluations 03/14-03/16/25 Reason for mcc: medication management, medication treatment and teach disease management Reason for physical therapy: home safety and mobility, therapeutic exercises, gait/transfer training, assess need for DME, ADL training and energy conservation MD Overseeing Care: Brenda Ojeda Homebound: Leaving the home is medically contraindicated at this time without the asist of a device and/or another person due th the listed conditions above and below. Reason homebound: unsteady gait / fall risk, immunosuppression / infection risk and weakness related to hospital stay Certification: Based on the above findings, I certify that this patient is confined to the home and needs intermittent mcc care, physical therapy and/or speech therapy, or continues to need occupational therapy. The patient is under my care, and I have initiated the establishment of the plan of care. The patient will be followed by a physician who will periodically review the plan of care. Time Spent With Patient Time: Total time managing care of this patient today ____ minutes.
--- NOTE | 2025-03-17 13:09 | PM.DS ---
DS: Providers Provider Date of Service: 03/17/25 Date of admission: 03/13/25 20:03 Date of discharge: 03/17/25 Primary care physician: Brenda Ojeda MD Consults: 03/13/25 20:44 Consult to Nephrology Routine Consulting Provider: [facility] Reason for consultation: JOE Rhabdomyolosis Has provider been notified: No 03/13/25 20:46 Addiction Medicine Provider Routine Consulting Provider: Addiction Covering Reason for consultation: History of substance use disorder and toxicology screen positive for cocain Has provider been notified: No DS: Diagnosis Discharge Diagnosis (1) Clostridioides difficile diarrhea: Status: Acute (2) Cocaine abuse: Status: Acute (3) JOE (acute kidney injury): Status: Acute (4) Rhabdomyolysis: Status: Acute DS: Summary Hospital Course Hospital Course: From the history and physical by the admitting hospitalist, Nathaniel Cosme 03/13/25: Patient is a 54-year-old female, [place] speaking with past medical history CAD/ LAD 25% stenosis, insulin-dependent diabetes on insulin pump and recently started Mounjaro 2 months prior, hypertension, hyperlipidemia, osteoarthritis, obesity, MALLIKA not currently on CPAP as her mass was stolen, COPD/emphysema, tobacco dependence, substance use disorder with a positive toxicology screen for cocaine, fibromyalgia, schizophrenia and UTI was brought in by ambulance after patient's mother called 911 because patient fell and and was not able to get up on her own. Patient states she has been falling often over the last 2 weeks. Patient expressed that she thought she was having a stroke because her speech has been more slurred over the last 2 days. Patient states she does have sleep apnea but has not been able to use CPAP as her CPAP mass was stolen. Patient's blood pressure remarkably low on arrival and with fluids blood pressure has improved. There was concern that patient may have over medicated but patient denied this. Workup in the ED included head CT and CT of the cervical spine which were negative for acute findings. Chest x-ray also negative for any acute findings. Urinalysis positive for +1 proteinuria, leukocytes and WBCs. Patient is reporting some mild burning with urination. Patient was started on ceftriaxone in the ED. In addition patient's labs indicated an JOE likely on a chronic kidney disease status. Patient states she was recently at [facility] and was seen by customer acquisition manager. Patient stated she was not considered for dialysis at that time. Hickman was placed for strict I's and O's. Renal ultrasound was also completed and those results are pending. Lactic acid normal. Patient does have a leukocytosis. Patient currently on 2 L oxygen and does not use oxygen at home. VBG reassuring, 7.35, 38, 126, 22. Total CKs grossly elevated 7474. Patient states she was not down on the ground for long periods of time. Patient is started on lactated Ringer's in the ED. Patient currently does not meet criteria for sepsis. Patient's insulin pump was removed on arrival and patient will resume short-acting and long-acting insulin while inpatient. Patient has had some diarrhea intermittently since starting Mounjaro 2 months prior. Diarrhea has not been anb issue over the last 2 days. Patient denies any other symptoms including nausea or vomiting or constipation. Patient was started on Mounjaro for diabetes management more so than weight loss. Patient is considered homeless and is staying with her mother in a studio apartment. Patient has been dealing with a lot of duress and stress and has to leave this apartment otherwise her mother is at risk for losing this apartment if the daughter continues to stay there. Patient states she also has a boyfriend who does not support her belief that she is having these symptoms and falls. Toxicology screen came back positive for cocaine and initially patient stated she does not use any drugs. Patient states she snorts cocaine when she is feeling down as it helps lift her up. Patient has been using off and on for multiple years. Patient states she is interested in talking with addictions. Patient currently denies any suicidal ideations or homicidal ideations. Patient is being admitted for JOE, rhabdomyolysis, hypotension which has improved with IV fluids and frequent falls over the last 2 weeks. To note, patient did pass nursing bedside swallow and diet was started. 54yo F with CAD, DM2 on insulin pump, HTN, HLD, OA, obesity, MALLIKA not on CPAP, COPD, tobacco abuse, FM, schizophrenia brought in by 911 after pt fell and could not get up on own, admitted for rhabdomyolysis + JOE to the telemetry unit on the hospitalist service. Hospital course by problem: JOE, prerenal, resolved - Creatinine improved from 4 to 1 resolved after IV fluid resuscitation; likely JOE was due to dehydration from diarrhea. Lisinopril held, resumed on discharge; to repeat BMP in 1 week. C. difficile colitis - started on vancomycin 03/15 and discharged on 12 more days to complete 14 days hypoMg - repleted rhabdomyolysis - resolved with IV fluid hydration hypotension - due to dehydration; resolved with IV fluids cocaine abuse - positive urine toxicology but patient denied using cocaine; confirmatory GC/MS pending; screen for HBV/HCV/HIV negative troponin indeterminate - flat; no ischemic EKG changes nor symptoms; likely due to renal failure multiple falls - STR recommended, pt declined; discharged home with VNA services Time Attestation Discharge Coordination Time (in mins): 45 Quality: Safe Use of Opioids Does Pt have an Active Cancer Diagnosis on the Problem List?: No Quality: Stroke Does the patient have a stroke diagnosis?: No Physical Exam Vital Signs: Vital Signs: Last Vital Signs Temp 97.5 F 03/17/25 11:40 Pulse 80 03/17/25 11:40 Resp 18 03/17/25 11:40 BP 141/80 H 03/17/25 11:40 Pulse Ox 93 03/17/25 11:40 O2 Del Method Room Air 03/17/25 11:40 O2 Flow Rate 1 03/13/25 19:54 BMI result Body Mass Index 35.5 Gen: in no acute distress HEENT: sclera anicteric, moist mucus membranes Neck: supple Lungs: clear to auscultation bilaterally Heart: regular rate and rhythm, no murmurs Abd: soft, non-tender, non-distended Ext: no edema Skin: warm/well-perfused Neuro: alert and oriented x3, no focal findings Psych: appropriate affect DS: Data Data Completed and Pending Completed studies during hospitalization [Text1]: Laboratory Results WBC 10.5 X10*3/uL (4.8-10.8) 03/14/25 03:53 RBC 3.82 X10*6/uL (4.20-5.50) L 03/14/25 03:53 Hgb 10.4 g/dl (12.0-16.0) L 03/14/25 03:53 Hct 31.9 % (37.0-47.0) L 03/14/25 03:53 MCV 83.5 fL (80.0-98.0) 03/14/25 03:53 MCH 27.2 pg (27.0-33.0) 03/14/25 03:53 MCHC 32.6 g/dl (31.0-35.0) 03/14/25 03:53 RDW 14.3 % (11.0-16.0) 03/14/25 03:53 Plt Count 232 X10*3/uL (160-400) D 03/14/25 03:53 MPV 10.9 fL (9.4-12.3) 03/14/25 03:53 Immature Gran % (Auto) 0.3 % (0.0-0.4) 03/14/25 03:53 Neut % (Auto) 73.9 % (45-73) H 03/14/25 03:53 Lymph % (Auto) 17.9 % (20-40) L 03/14/25 03:53 Warren % (Auto) 4.4 % (2-11) 03/14/25 03:53 Eos % (Auto) 3.3 % (0-4) 03/14/25 03:53 Baso % (Auto) 0.2 % (0-2) 03/14/25 03:53 Lymph # (Auto) 1.9 X10*3/uL (1.2-4.9) 03/14/25 03:53 Warren # (Auto) 0.5 X10*3/uL (0.1-1.2) 03/14/25 03:53 Eos # (Auto) 0.4 X10*3/uL (0.0-0.4) 03/14/25 03:53 Baso # (Auto) 0.0 X10*3/uL (0.0-0.2) 03/14/25 03:53 Abs Immat Gran (auto) 0.03 X10*3/uL (0.00-0.03) 03/14/25 03:53 Absolute Neuts (auto) 7.7 x10*3/uL (2.0-8.3) 03/14/25 03:53 Absolute Nucleated RBC 0.000 X10*3/uL (0.0-0.012) 03/14/25 03:53 Nucleated RBC % (auto) 0.0 /100WBC (0.0-0.2) 03/14/25 03:53 Hold Purple Top SEE NOTE 03/16/25 07:10 PT 10.5 SEC (10.9-12.4) L 03/13/25 16:27 INR 0.9 (0.9-1.1) 03/13/25 16:27 D-Dimer High Sensitivty 349 NG/ML 03/13/25 16:27 VBG pH 7.35 (7.32-7.43) 03/13/25 16:36 VBG pCO2 38 mmHg 03/13/25 16:36 VBG pO2 126 mmHg 03/13/25 16:36 VBG HCO3 22 mmol/L (22-26) 03/13/25 16:36 VBG O2 Saturation 98.0 % 03/13/25 16:36 VBG Base Excess -3.0 mmol/L 03/13/25 16:36 Sodium 140 mmol/L (135-145) 03/17/25 05:37 Potassium 3.8 mmol/L (3.3-5.1) 03/17/25 05:37 Chloride 102 mmol/L (96-108) 03/17/25 05:37 Carbon Dioxide 28 mmol/L (22-29) 03/17/25 05:37 Anion Gap 14 (12-20) 03/17/25 05:37 BUN 19 mg/dL (9-16) H 03/17/25 05:37 Creatinine 1.06 mg/dL (0.5-1.4) 03/17/25 05:37 Estim Creat Clear Calc 70.6 03/17/25 05:37 Estimated GFR 54 03/17/25 05:37 POC Glucose 334 mg/dL (60-115) H 03/17/25 11:30 Random Glucose 286 mg/dL (60-115) H 03/17/25 05:37 Estimat Average Glucose 249 mg/dL 03/14/25 03:53 Hemoglobin A1c % 10.3 % (<6.0) H 03/14/25 03:53 Lactic Acid 2.6 mmol/L (0.5-2.0) H* 03/13/25 16:27 Lactic Acid F/U @ 2Hr 2.0 mmol/L (0.5-2.0) 03/13/25 19:28 Calcium 8.8 mg/dL (8.4-10.2) 03/17/25 05:37 Magnesium 1.7 mg/dL (1.6-2.6) 03/17/25 05:37 Total Bilirubin 0.2 mg/dL (0.0-1.0) 03/16/25 07:07 Direct Bilirubin < 0.2 mg/dL (0.0-0.5) 03/13/25 16:27 AST 42 U/L (5-31) H 03/16/25 07:07 ALT 13 U/L (0-31) 03/16/25 07:07 Alkaline Phosphatase 98 U/L (39-117) 03/16/25 07:07 Total Creatine Kinase 811 U/L (26-140) H 03/17/25 05:37 Troponin I High Sens 70.8 ng/L (<3.5-17.0) H* 03/13/25 19:28 B-Natriuretic Peptide < 10 pg/mL (<100) 03/13/25 16:27 Total Protein 6.7 g/dL (6.5-8.0) 03/16/25 07:07 Albumin 3.6 g/dL (3.5-5.0) 03/16/25 07:07 Urine Color Yellow 03/13/25 19:58 Urine Appearance Clear 03/13/25 19:58 Urine pH 5.5 (5.0-9.0) 03/13/25 19:58 Ur Specific [place] <= 1.005 (1.005-1.025) 03/13/25 19:58 Urine Protein 30 (1+) mg/dL (Neg-Trace) H 03/13/25 19:58 Urine Glucose (UA) Negative mg/dL (Negative) 03/13/25 19:58 Urine Ketones Negative mg/dL (Negative) 03/13/25 19:58 Urine Blood Large (3+) (Negative) H 03/13/25 19:58 Urine Nitrite Negative (Negative) 03/13/25 19:58 Ur Leukocyte Esterase Large (3+) (Negative) H 03/13/25 19:58 Urine RBC 0-2 /HPF (0-2) 03/13/25 19:58 Urine WBC >50 /HPF (0-5) H 03/13/25 19:58 Ur Squamous Epith Cells 6-10 /HPF (0-2) 03/13/25 19:58 Urine Bacteria None Seen (None Seen) 03/13/25 19:58 Hyaline Casts 11-20 /LPF (0-2) 03/13/25 19:58 Stl C. cayetanensis PCR Not Detected (Not Detect.) 03/14/25 22:00 Stool Rotavirus A PCR Not Detected (Not Detect.) 03/14/25 22:00 Stl Adenov F 40/41 PCR Not Detected (Not Detect.) 03/14/25 22:00 Stool Astrovirus (PCR) Not Detected (Not Detect.) 03/14/25 22:00 Stool Campylobacter PCR Not Detected (Not Detect.) 03/14/25 22:00 Stool Cryptosporidium PCR Not Detected (Not Detect.) 03/14/25 22:00 Stl Sh Tox Pr E STEC PCR Not Detected (Not Detect.) 03/14/25 22:00 Stool E coli O157 PCR Not applicable (Not Detect.) 03/14/25 22:00 Stl Enterotoxigenic E PCR Not Detected (Not Detect.) 03/14/25 22:00 Stool EPEC (PCR) Not Detected (Not Detect.) 03/14/25 22:00 Stool EAEC (PCR) Not Detected (Not Detect.) 03/14/25 22:00 Stl E. histolytica PCR Not Detected (Not Detect.) 03/14/25 22:00 Stool Giardia Lamblia PCR Not Detected (Not Detect.) 03/14/25 22:00 Stl P. shigelloides PCR Not Detected (Not Detect.) 03/14/25 22:00 Stool Salmonella PCR Not Detected (Not Detect.) 03/14/25 22:00 Stool Sapovirus (PCR) Not Detected (Not Detect.) 03/14/25 22:00 Stl Shigella/EIEC PCR Not Detected (Not Detect.) 03/14/25 22:00 St Y.enterocolitica PCR Not Detected (Not Detect.) 03/14/25 22:00 Stool Vibrio (PCR) Not Detected (Not Detect.) 03/14/25 22:00 Stl Vibrio cholerae PCR Not Detected (Not Detect.) 03/14/25 22:00 Stl Norovirus GI/GII PCR Not Detected (Not Detect.) 03/14/25 22:00 Urine Opiates Screen Not Detected (Not Detect) 03/13/25 19:58 Ur Buprenorphine Scrn Not Detected ng/mL (Not Detect) 03/13/25 19:58 Ur Oxycodone Screen Not Detected ng/mL (Not Detect) 03/13/25 19:58 Urine Methadone Screen Not Detected ng/mL (Not Detect) 03/13/25 19:58 Urine Fentanyl Screen Not Detected (Not Detect) 03/13/25 19:58 Ur Barbiturates Screen Not Detected (Not Detect) 03/13/25 19:58 Ur Phencyclidine Scrn Not Detected (Not Detect) 03/13/25 19:58 Ur Amphetamines Screen Not Detected (Not Detect) 03/13/25 19:58 U Benzodiazepines Scrn Not Detected (Not Detect) 03/13/25 19:58 Urine Cocaine Screen POSITIVE (Not Detect) H 03/13/25 19:58 U Marijuana (THC) Screen Not Detected (Not Detect) 03/13/25 19:58 Ethyl Alcohol < 10 mg/dL 03/13/25 16:27 C. difficile Tox B Gene POSITIVE (Negative) A* 03/14/25 22:00 C. difficile Toxin A&B Negative (Negative) 03/14/25 22:00 C. difficile Interpret SEE NOTE 03/14/25 22:00 Hep Bs Antigen Negative (Negative) 03/17/25 05:37 Hep Bs Antibody NONREACTIVE (Nonreactive) 03/17/25 05:37 Hep B Core Total Ab Nonreactive (Nonreactive) 03/17/25 05:37 Hepatitis C Ab (EIA) Nonreactive (Nonreactive) 03/17/25 05:37 HIV 1&2 Ab/P24 Ag 4thGn Nonreactive (Nonreactive) 03/17/25 05:37 Impressions Chest X-Ray 03/13/25 16:22 IMPRESSION: No acute disease Electronically signed by: Vamsi Montero MD 03/13/2025 04:32 PM EDT RP Pulmonary Perfusion Imaging 03/14/25 08:18 IMPRESSION: Normal perfusion scan. Electronically signed by: Pablito Varela MD 03/14/2025 10:30 AM EDT RP Discharge Plan Discharge Anticipated Discharge Date/Time: 03/17/25 13:04 Patient Disposition: Home Health Service Discharge Diagnosis: Clostridium difficile colitis rhabdomyolysis acute kidney injury Referrals: Brenda Tovar MD [Primary Care Provider, Internal Medicine] - 1 Week Discharge Medications: New vancomycin 125 mg Capsule 125 mg PO Q6H Qty: 48 0RF Continued fluticasone propion-salmeterol 232-14 mcg/actuation aerosol powdr breath activated 1 inh PO BID Qty: 1 6RF albuterol sulfate 90 mcg/actuation HFA aerosol inhaler 2 puff PO Q4H PRN (Reason: Wheezing) gabapentin 800 mg tablet 1 tab PO TID ropinirole 0.25 mg tablet 1 tab PO BEDTIME atorvastatin 80 mg tablet 80 mg PO DAILY lisinopril 20 mg tablet 20 mg PO DAILY metformin 500 mg tablet extended release 24 hr 1,000 mg PO BID omeprazole 20 mg capsule,delayed release(DR/EC) 20 mg PO DAILY@0630 fluticasone propionate 50 mcg/actuation spray,suspension 2 spray intranasal BID PRN (Reason: Allergic Symptoms) Fiasp U-100 Insulin 100 unit/mL solution See Rx Instructions .ROUTE .COMPLEX Rx Instructions: to be used in patient pump, up to 120 units daily doxepin 50 mg capsule 50 mg PO BEDTIME clonazepam 1 mg tablet 1 mg PO TID PRN (Reason: anxiety) Austedo 6 mg tablet 6 mg PO BID Mounjaro 7.5 mg/0.5 mL pen injector 7.5 mg subcut WE (DME) blood-glucose meter Kit See Rx Instructions .ROUTE .MEDSUPPLY Qty: 1 Rx Instructions: As directed aspirin 81 mg tablet,delayed release (DR/EC) 81 mg PO DAILY (DME) FreeStyle Lite Strips Strip See Rx Instructions .ROUTE .MEDSUPPLY Qty: 10 Rx Instructions: As directed (DME) lancets 28 gauge misc See Rx Instructions topical TID Qty: 100 Rx Instructions: As directed (DME) pen needle, diabetic 31 gauge x 3/16 needle See Rx Instructions .ROUTE .MEDSUPPLY Qty: 50 Rx Instructions: As directed clonidine HCl 0.1 mg tablet 0.1 mg PO TID PRN (Reason: Anxiety) (DME) lancets [TRUEplus Lancets] 33 gauge misc See Rx Instructions .ROUTE .MEDSUPPLY Qty: 100 Rx Instructions: As directed (DME) Omnipod Dash Pods (Gen 4) Cartridge See Rx Instructions subcut .MEDSUPPLY Qty: 5 Rx Instructions: As directed quetiapine 300 mg tablet 600 mg PO BEDTIME mirtazapine 30 mg tablet 30 mg PO BEDTIME bupropion HCl 100 mg tablet sustained-release 12 hr 100 mg PO DAILY insulin degludec [Tresiba FlexTouch U-100] 100 unit/mL (3 mL) insulin pen 30 unit subcut BEDTIME PRN (Reason: IF NEEDED FOR HYPERGLYCEMIA) Discharge Orders: Discharge Order (Routine); Ordered 03/17/25 Ordered By: Lisa Browning Diet: Diabetic diet Activity on Discharge: As tolerated Stand Alone Forms: Patient Portal Discharge page Print Language: [place] Leonean Other Ambulatory Orders: Basic Metabolic Panel (Routine) Timeframe: 1 Week Facility: [facility] - Location: Laboratory Ordered By: Lisa Browning Care Plan Goals: cure of infection kidney health Health Concerns: Clostridium difficile colitis rhabdomyolysis acute kidney injury Plan of Treatment: home with VNA services vancomycin 125 mg 4x a day for 12 days repeat BMP in 1 week Please follow up with your primary care doctor within 1 week. Return to the hospital if you experience recurrent or worsening symptoms. Assessment: See Discharge Summary.
--- NOTE | 2025-03-17 13:27 | MHC.CM.PN ---
Patient has been medically cleared for dc to home today, with services. Patient has accepted services from [facility], who has been made aware of today's dc.IMM was addressed with Patient verbally d/t contact precautions. A Lyft has been set up for 2PM today.
== END 2025-03-17 14:00 | disposition home health service (06) | DRG 558 ==
LOC: HO.ED 20:04 → HO.EDOVER 20:08 → HO.IMC 03-14 18:04
PROVIDERS: Emergency Medicine; Nurse Practitioner Family; Student in an Organized Health Care Education/Training Program; Admitting Provider Student in an Organized Health Care Education/Training Program; Emergency Provider Emergency Medicine; PCP Internal Medicine; Visit Provider Family Medicine
DX: M62.82 Rhabdomyolysis (principal); N17.9 Acute kidney failure, unspecified; N39.0 Urinary tract infection, site not specified; Z59.811 Housing instability, housed, with risk of homelessness; A04.72 Enterocolitis due to Clostridium difficile, not specified as recurrent; F17.210 Nicotine dependence, cigarettes, uncomplicated; F14.10 Cocaine abuse, uncomplicated; W19.XXXA Unspecified fall, initial encounter; R29.6 Repeated falls; I25.10 Atherosclerotic heart disease of native coronary artery without angina pectoris; Z96.41 Presence of insulin pump (external) (internal); Z98.1 Arthrodesis status; Z71.6 Tobacco abuse counseling; F20.9 Schizophrenia, unspecified; K21.9 Gastro-esophageal reflux disease without esophagitis; M79.7 Fibromyalgia; E11.65 Type 2 diabetes mellitus with hyperglycemia; E78.5 Hyperlipidemia, unspecified; J43.9 Emphysema, unspecified; E66.9 Obesity, unspecified; I95.9 Hypotension, unspecified; N18.9 Chronic kidney disease, unspecified; E11.22 Type 2 diabetes mellitus with diabetic chronic kidney disease; G47.33 Obstructive sleep apnea (adult) (pediatric); E86.0 Dehydration; E83.42 Hypomagnesemia; Z68.35 Body mass index [BMI] 35.0-35.9, adult; Z91.199 Patient's noncompliance with other medical treatment and regimen due to unspecified reason; Z79.4 Long term (current) use of insulin; Z79.82 Long term (current) use of aspirin; Z79.84 Long term (current) use of oral hypoglycemic drugs; Z79.85 Long-term (current) use of injectable non-insulin antidiabetic drugs; Z79.899 Other long term (current) drug therapy
CPT/HCPCS: 36415; 70450; 71045; 72125; 76775; 78580; 80048; 80053; 80076; 80307; 81001; 82550; 82803; 82947; 83036; 83605; 83735; 83880; 84484; 85025; 85379; 85610; 86704; 86706; 86803; 87040; 87086; 87324; 87340; 87389; 87493; 87507; 93005; 97161; 97530; 99285; 99499; A9540; J0696; J1644; J1650; J3475; J7120

== ENCOUNTER → 2025-03-13 15:58 | Outpatient (BNV) | payer OTHER, SELFPAY | PROVIDERS: Admitting Provider Student in an Organized Health Care Education/Training Program; Emergency Provider Emergency Medicine; PCP Internal Medicine; Visit Provider Internal Medicine Cardiovascular Disease | DX: R00.0 Tachycardia, unspecified (principal) | CPT/HCPCS: 93010 ==

== ENCOUNTER → 2025-03-13 16:03 | Outpatient (BNV) | payer OTHER, SELFPAY | PROVIDERS: Emergency Provider Emergency Medicine; PCP Internal Medicine; Visit Provider Radiology Diagnostic Radiology | DX: M54.2 Cervicalgia (principal); S09.90XA Unspecified injury of head, initial encounter; N17.9 Acute kidney failure, unspecified; R07.9 Chest pain, unspecified | CPT/HCPCS: 70450; 71045; 72125; 76775 ==

== ENCOUNTER 2025-03-13 20:03 | Outpatient (BNV) | payer OTHER, SELFPAY | END 2025-03-14 08:18 | PROVIDERS: Admitting Provider Student in an Organized Health Care Education/Training Program; Emergency Provider Emergency Medicine; PCP Internal Medicine; Visit Provider Radiology Diagnostic Radiology | DX: R79.89 Other specified abnormal findings of blood chemistry (principal) | CPT/HCPCS: 78580 ==

== ENCOUNTER → 2025-03-13 20:03 | Outpatient (BNV) | payer OTHER, SELFPAY | PROVIDERS: Admitting Provider Student in an Organized Health Care Education/Training Program; Emergency Provider Emergency Medicine; PCP Internal Medicine; Visit Provider Nurse Practitioner Family | DX: N17.9 Acute kidney failure, unspecified (principal); M62.82 Rhabdomyolysis | CPT/HCPCS: 99223; 99232; 99233 ==

== ENCOUNTER → 2025-03-13 20:03 | Outpatient (BNV) | payer OTHER, SELFPAY | PROVIDERS: Admitting Provider Student in an Organized Health Care Education/Training Program; Emergency Provider Emergency Medicine; PCP Internal Medicine; Visit Provider Nurse Practitioner Family | DX: N17.9 Acute kidney failure, unspecified (principal) | CPT/HCPCS: 99222 ==

== ENCOUNTER 2025-04-30 11:23 | Outpatient (AMB) | payer OTHER, SELFPAY ==
[2025-04-30 11:25] VITALS: BP 132/67; PULSE 102; O2SAT 99; BMI 33.2
--- NOTE | 2025-04-30 11:25 | A.OFFVIS_ITS ---
Vital Signs 04/30/25 11:25 Height 5 ft 6 in Weight 206 lb BMI 33.2 BP 132/67 Blood Pressure Location Rt brachial Position Sitting Pulse 102 H Pulse Source Pulse Oximeter Pulse Oximetry (%) 99 Oxygen Delivery Method Room Air Intake Visit Reasons: asthma Allergies Penicillins (PENICILLINS) Allergy (Intermediate, Verified 04/30/25 11:31) HIVES ibuprofen Allergy (Unknown, Verified 04/30/25 11:31) unknown penicillin V Allergy (Unknown, Verified 04/30/25 11:31) Unknown NSAIDS (Non-Steroidal Anti-Inflamma (NSAIDS (NON-STEROIDAL ANTI-INFLAMMA) Adverse Reaction (Mild, Verified 04/30/25 11:31) STOMACH UPSET HPI HPI asthma: Details: 54-year-old lady, active 20+ pack-year smoker followed for asthma/COPD overlap syndrome home and environmental allergies. Patient continued on Advair and albuterol MDI with suboptimal control of her symptoms, though denies an acute exacerbation. [facility] Medical History Lipoma of abdominal wall T2DM (type 2 diabetes mellitus) Arthritis of knee Restless leg syndrome Sleep apnea Gastritis High cholesterol Hypertension Fibromyalgia Arthritis Migraines Diabetes Asthma Surgical History Hx of fusion of cervical spine Hx of breast biopsy Hx of arthroscopic knee surgery Hx of cholecystectomy History of esophagogastroduodenoscopy (EGD) History of carpal tunnel release Hx of hysterectomy Family History Father No problems noted. Mother HTN (hypertension) Arthritis Diabetes Maternal Aunt Cancer of unknown origin Social History (Updated 03/13/25 @ 21:05 by BILLY Estrada) Household Members: Other Household Members Other:: patient does not have a permanent place to stay Housing: Other Housing Other:: patient stays with whoever she can. No stable housing Do you presently have visiting nurse or other home services: No Alcohol intake: never Patient Tobacco Use Status: Current everyday Tobacco user Tobacco use type: Cigarette Cigarettes Per Day: 10 e-Cigarette/Vaping Use: Currently Using Second Hand Smoke Exposure: No Substance Use Type: Crack/Cocaine service: No Current occupational status: unemployed Current occupation: right handed Review of Systems Const Denies daytime sleepiness, Denies excessive sweating, Denies fatigue, Denies fever(s), Denies lethargy, Denies malaise, Denies night sweats, Denies snoring and Denies weight loss Eyes Denies blurry vision and Denies itchy eyes ENT Denies nasal congestion, Denies post nasal drip, Denies sinus pain, Denies sinus pressure and Denies other ( Thrush) Card Denies chest pain, Denies pedal edema, Denies dyspnea, Reports dyspnea on exertion, Denies orthopnea and Denies paroxysmal nocturnal dyspnea Resp Denies cough, Denies hemoptysis, Denies excessive phlegm production, Denies dyspnea, Reports dyspnea on exertion, Denies snoring and Reports wheezing GI Denies abdominal pain and Denies heartburn Musc Denies myalgias, Denies arthralgias and Denies joint swelling Skin/Breast Denies rash Neuro Denies memory loss and Denies seizure-like activity Psych Denies abnormal sleep pattern, Denies anxiety and Denies memory loss Endo Denies excessive sweating, Denies fatigue and Denies heat intolerance Baldo/Lymph Denies easy bruising Aller/Immun Denies itchy eyes, Denies seasonal rhinorrhea and Reports wheezing Physical Exam Vital Signs: Last Vital Signs Pulse 102 H 04/30/25 11:25 BP 132/67 04/30/25 11:25 Pulse Ox 99 04/30/25 11:25 Oxygen Delivery Method Room Air 04/30/25 11:25 BMI result Body Mass Index 33.2 Const General: no acute distress and alert Nutritional Appearance: obese Orientation/consciousness: Other orientation findings ( oriented) HEENT Head: Yes atraumatic Eyes General: appearance normal, both eyes and all related structures Sclerae: sclerae normal EOM: EOMs intact bilaterally Neck Neck: Yes supple Lymphatic: no lymphadenopathy noted Resp Effort & Inspection: normal respiratory effort and no use of accessory muscles Auscultation: clear to auscultation bilaterally Cardio Rate: regular rate Rhythm: regular rhythm Heart sounds: no gallops, no murmurs and no rubs Skin General skin exam: other ( warm) Extrem General: No clubbing, No cyanosis and No edema Assessment & Plan Assessment & Plan (1) Asthma: Code(s): J45.909 - Unspecified asthma, uncomplicated Category: Medical Plan: Suboptimal control on Advair and albuterol MDI. Will request Xolair approval. (2) Environmental allergies: Code(s): Z91.09 - Other allergy status, other than to drugs and biological substances Category: Medical Plan: Suboptimally controlled. Expect to improve on Xolair. Continue Flonase. Coding Level of Care Code Est Pt Level 4 (71901) Diagnoses Asthma J45.909 Environmental allergies Z91.09
--- OUTSIDE RECORDS SUMMARY | 2025-04-30 13:58 | XMS_ITS | Encounter Summary ---
Author Organization [employer] Address [address] [place] [address] Care Team Providers Care Industrial Engineering Manager Name Role Phone Brenda Tovar MD Primary Care Provide r Eugene Jarvis Unavailable Unavailable Reason for Visit * Reason Comments Med Refill Encounter Details Date Type Department Care Team ([facility] st Contact Info) Description 05/19/2024 Refill [facility] [address] [place], [place] [phone] Mary Clemente MD [address] [place] [address] Moderate persistent asthma without complication Social History [...] documented as of this encounter Care Teams Industrial Engineering Manager Relationship Specialty Start Date End Date Brenda Tovar MD [address] [place] [address] PCP - General Family Medicine 02/16/19 Eugene Jarvis FNP [address] [place] [address] Nurse Practitioner Family Medicine 06/21/23 [place] [facility] 03/18/25 04/25/25 documented as of this encounter
--- OUTSIDE RECORDS SUMMARY | 2025-04-30 13:58 | XMS_ITS | Encounter Summary ---
Author Organization [employer] Address [address] [place] [address] Care Team Providers Care Asp Net Developer Name Role Phone Brenda Tovar MD Primary Care Provide r Eugene Jarvis Unavailable Unavailable Encounter Details Date Type Department Care Team (Late st Contact Info) Description 02/06/2025 Telephone [facility] [address] [place], [place] [phone] Brenda Tovar MD [address] [place] [address] Social History Tobacco Use Types Packs/Day Years [...] documented as of this encounter Care Teams Asp Net Developer Relationship Specialty Start Date End Date Brenda Tovar MD [address] [place] [address] PCP - General Family Medicine 02/16/19 Eugene Jarvis FNP [address] [place] [address] Nurse Practitioner Family Medicine 06/21/23 [place] [facility] 03/18/25 04/25/25 documented as of this encounter
--- OUTSIDE RECORDS SUMMARY | 2025-04-30 13:58 | XMS_ITS | Encounter Summary ---
Author Organization [employer] Address [address] [place] [address] 7 [place] [address] Care Team Providers Care Credit Control Clerk Name Role Phone Brenda Tovar MD Primary Care Provide r Eugene Jarvis Unavailable Unavailable Reason for Visit * Reason Comments Med Refill Encounter Details Date Type Department Care Team ([facility] st Contact Info) Description 04/25/2025 Refill [facility] MEDICINE [address] [place], [place] [phone] Brenda Tovar MD [address] [place] [address] Type 2 diabetes mellitus with hyperglycemia, with long-term current use of insulin (HCC) Social History Tobacco Use Types Packs/Day Years [...] with others, in a hotel, in a fdc, living outside on the street, on a [...] AM EDT documented as of this encounter Miscellaneous Notes * Telephone Encounter - Velvet Diggs RN - 04/25/2025 2:54 PM EDT Pt. Walked in requesting refill. Last dispensed 03/28/25 documented in this encounter Plan of Treatment Not on file documented as of this encounter Visit Diagnoses Diagnosis Type 2 diabetes mellitus with hyperglycemia, with long-term current use of insulin (HCC) documented in this encounter Additional Health Concerns Assessment Noted Time PHQ-9 Depression Total Score: 0 03/03/20 24 11:00 AM EDT documented as of this encounter Care Teams Credit Control Clerk Relationship Specialty Start Date End Date Brenda Tovar MD [address] [place] [address] PCP - General Family Medicine 02/16/19 Eugene Jarvis FNP [address] [place] [address] Nurse Practitioner Family Medicine 06/21/23 [facility]zbi[facility] JACOBO 03/18/25 04/25/25 documented as of this encounter
--- OUTSIDE RECORDS SUMMARY | 2025-04-30 13:58 | XMS_ITS | Encounter Summary ---
Author Organization [employer] Address [address] [place] [address] 7 [place] [address] Care Team Providers Care Wool And Pelt Grader Name Role Phone Brenda Tovar MD Primary Care Provide r Eugene Jarvis Unavailable Unavailable Reason for Visit * Reason Comments Med Refill Encounter Details Date Type Department Care Team ([facility] st Contact Info) Description 01/29/2023 Refill [facility] MEDICINE [address] [place], [place] [phone] NameRivera MD [address] [place] [address] Hypertension, unspecified type Social History Tobacco Use [...] documented as of this encounter Care Teams Wool And Pelt Grader Relationship Specialty Start Date End Date Brenda Tovar MD [address] [place] [address] PCP - General Family Medicine 02/16/19 Eugene Jarvis FNP [address] [place] [address] Nurse Practitioner Family Medicine 06/21/23 [facility] 03/18/25 04/25/25 documented as of this encounter
--- OUTSIDE RECORDS SUMMARY | 2025-04-30 13:58 | XMS_ITS | Encounter Summary ---
Author Organization [employer] Address [address] [facility] [address] [place] [address] Care Team Providers Care Research Development Director Name Role Phone Brenda Tovar MD Primary Care Provide r Eugene Jarvis Unavailable Unavailable Encounter Details Date Type Department Care Team ([facility] st Contact Info) Description 01/18/2023 Telephone [facility] MEDICINE [address] [place], [place] [phone] Brenda Tovar MD [address] [place] [address] Social History Tobacco Use Types Packs/Day Years [...] documented as of this encounter Care Teams Research Development Director Relationship Specialty Start Date End Date Brenda Tovar MD [address] [place] [address] PCP - General Family Medicine 02/16/19 Eugene Jarvis FNP [address] [place] [address] Nurse Practitioner Family Medicine 06/21/23 [place] [facility] 03/18/25 04/25/25 documented as of this encounter
--- OUTSIDE RECORDS SUMMARY | 2025-04-30 13:58 | XMS_ITS | Encounter Summary ---
Author Organization [facility] [employer] Address [address] [place] [address] [address] [place] [address] Care Team Providers Care Assistant District Attorney Name Role Phone Brenda Tovar MD Primary Care Provide r Eugene Jarvis Unavailable Unavailable Reason for Visit * Reason Comments Med Refill Encounter Details Date Type Department Care Team ([facility] st Contact Info) Description 02/08/2025 Refill [facility] MEDICINE [address] [place], [place] [phone] Brenda Tovar MD [address] [place] [address] Hypertension, unspecified type Social History Tobacco Use [...] documented as of this encounter Care Teams Assistant District Attorney Relationship Specialty Start Date End Date Brenda Tovar MD [address] [place] [address] PCP - General Family Medicine 02/16/19 Eugene Jarvis FNP [address] [place] [address] Nurse Practitioner Family Medicine 06/21/23 [facility] 03/18/25 04/25/25 documented as of this encounter
--- OUTSIDE RECORDS SUMMARY | 2025-04-30 13:58 | XMS_ITS | Clinical Summary ---
Author Organization [facility] Address [address] [place] [address] Care Team Providers Care Rug Repairer Name Role Phone Unavailable Primary Care Provider [...] Tdap) 06/25/2032 022 Imm-Pneumococcal 50+ Completed 03/03/2024 [id number] Completed 04/28/2024, 05/27, 04/27/2022, Additional history exists [...] Most Recently Relevant to Health Maintenance Insurance [facility]
--- OUTSIDE RECORDS SUMMARY | 2025-04-30 13:58 | XMS_ITS | Clinical Summary ---
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) (HCC) TAKE 1 TABLET BY MOUTH AT BEDTIME 90 tablet 1 023 Active cloNIDine (Catapres) 0.1 MG tabletIndicatio ns:Severe recurrent major depressive disorder with psychotic features (CMS/HCC) (HCC) TAKE 1 TABLET BY MOUTH THREE TIMES DAILY IN THE MORNING, EVENING, AND BEDTIME 270 tablet 1 023 Active FREESTYLE LITE test strip TEST BLOOD SUGAR 3 TIMES A DAY 100 strip 023 Active Blood Pressure Monitor kitIndications: Primary hypertension Use as directed 3x/week 1 kit 024 Active Continuous Glucose Sensor (Dexcom G7 Sensor) [facility] USE TO MONITOR BLOOD GLUCOSE CONTINUOUSLY, CHANGE EVERY 10 DAYS, E11.65 024 Active Gvoke HypoPen 2-Pack 0.5 MG/0.1ML injection TO BE INJECTED BY CAREGIVER SUBCUTANEOUSLY IF PT IS UNCONSCIOUS DUE TO LOW BLOOD SUGAR. SEEK MEDICAL CARE. IF PATIENT DOES NOT RESPOND IN 15 MINUTES REPEAT DOSE. 024 Active fluticasone (Flonase) 50 MCG/ACT nasal spray Administer 2 sprays into each nostril Once per day. Shake gently. Before first use, prime pump. After use, clean tip and replace cap. 16 g 11 024 Active betamethasone, augmented, (Diprolene) 0.05 % ointmentIndicat [...] OF BREATH 18 g 1 024 Active lisinopril 20 MG tabletIndicatio ns:Primary hypertension TAKE 1 TABLET BY MOUTH EVERY MORNING 90 tablet 3 024 Active omeprazole (PriLOSEC) [address] capsuleIndicati ons:Heartburn TAKE 1 CAPSULE BY MOUTH EVERY MORNING BEFORE BREAKFAST 90 capsule 3 024 Active clonazePAM (KlonoPIN) 1 MG tablet Take 1 tablet by mouth 2 times daily. Active Easy Touch Pen [place] 31G X 8 MM [facility] USE DIRECTED TO INJECT INSULIN FOUR TIMES DAILY 024 Active Tresiba FlexTouch 200 UNIT/ML injection INJECT 30 UNITS SUBCUTANEOUS INJECTION DAILY. E11.9 Active fluticasone-chula meterol (AirDuo RespiClick) 232-14 MCG/ACT inhaler INHALE 1 PUFF BY MOUTH TWICE DAILY RINSE MOUTH AFTER USING. 025 Active rOPINIRole (Requip) 0.25 MG tabletIndicatio [...] EVERY MORNING 90 tablet 1 025 Active buPROPion SR (Wellbutrin SR) 100 MG 12 hr tabletIndicatio ns:Mood disorder (CMS/HCC) TAKE 1 TABLET BY MOUTH EVERY MORNING 90 tablet 025 Active Austedo 6 MG tablet Take 6 mg by mouth 2 times daily. 025 Active doxepin (SINEquan) 50 MG capsule Take 50 mg by mouth at bedtime. 025 Active Embecta Insulin Syr Ultrafine 31G X 5/16 0.5 ML misc For use with vial during pump failure 025 Active QUEtiapine (SEROquel) 300 MG tablet Take 300 mg by mouth at bedtime. 025 Active cetirizine (ZyrTEC) 10 MG tablet TAKE 1 TABLET BY MOUTH EVERY MORNING 90 tablet 3 025 Active Multiple Vitamins-Minera ls (CertaVite/Anti oxidants) tablet TAKE 1 TABLET BY MOUTH EVERY MORNING WITH FOOD 90 tablet 3 025 Active gabapentin (Neurontin) 800 MG tabletIndicatio ns:Hypertension , unspecified type TAKE 1 TABLET BY MOUTH THREE TIMES DAILY IN THE MORNING, EVENING, AND BEDTIME 90 tablet 025 Active Mounjaro 7.5 MG/0.5ML solution auto-injectorIn dications:Type 2 diabetes mellitus with hyperglycemia, with long-term current use of insulin (HCC) INJECT ONE PEN (=7.5MG) SUBCUTANEOUSLY ONCE A WEEK DIRECTED 2 mL 1 025 Active DULoxetine (Cymbalta) [address] capsuleIndicati ons: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 30 g 2 024 2024 Discontinued(M ed list cleanup (will not trigger notification to Pharmacy)) cetirizine (ZyrTEC) 10 MG tablet Take 1 tablet (10 mg) by mouth Once per day. 30 tablet 11 024 2024 Discontinued Multiple Vitamins-Minera ls (CertaVite/Anti oxidants) tablet Take 1 tablet by mouth Once per day. 90 tablet 3 024 2024 Discontinued(R eorder (will not trigger notification to Pharmacy)) Mounjaro 7.5 MG/0.5ML solution auto-injectorIn dications:Type 2 diabetes mellitus with hyperglycemia, with long-term current use of insulin ([facility]) INJECT ONE PEN (=7.5MG) SUBCUTANEOUSLY ONCE A WEEK DIRECTED 2 mL 1 025 2024 Discontinued gabapentin (Neurontin) 800 MG tabletIndicatio ns:Hypertension , unspecified type TAKE 1 TABLET BY MOUTH THREE TIMES DAILY IN THE MORNING, EVENING, AND BEDTIME 90 tablet 025 2024 Discontinued(R eorder (will not trigger notification to Pharmacy)) Active Problems Problem Noted Date Diagnosed Date H/O: substance abuse ([facility]) 04/09/2025 Assessment & Plan (04/09/2025 1:43 PM EDT): Counseling done today Rhabdomyolysis 04/09/2025 Assessment & Plan (04/09/2025 1:43 PM EDT): Resolved continues to drink plenty of water JOE (acute kidney injury) 04/09/2025 Assessment & Plan (04/09/2025 1:43 PM EDT): I will recheck her BMP I advised to continue to drink plenty of water C. difficile diarrhea 04/09/2025 Assessment & Plan (04/09/2025 1:43 PM EDT): Patient finished her vancomycin regimen Irritable bowel syndrome with diarrhea Assessment & Plan (04/09/2025 1:42 PM EDT): Referral in for gastroenterology Dry skin dermatitis 04/09/2025 Assessment & Plan (04/09/2025 1:43 PM EDT): Referral to dermatology done today Dysphagia 04/09/2025 Assessment & Plan (04/09/2025 1:42 PM EDT): Barium swallow test ordered today I referred patient to gastroenterology Chronic migraine with aura w ithout status [...] Assessment & Plan (02/26/2023 1:28 PM EDT): funeral pre arrangement counselor about increase fiber and water on her diet GI referral Unstable gait 02/26/2023 Assessment & Plan (02/26/2023 11:15 AM EDT): Rolator walker will be prescribed for patient Tardive dyskinesia 02/08/2023 Assessment & Plan (06/21/2023 10:39 AM EST): Symptoms have improved somewhat, ?r/t discontinuation of Benztropine? F/U with Neurologist at [facility] as scheduled. Do not F/U with Neurologist at [place]. ED as needed. Assessment & Plan (05/27/2023 2:47 PM EDT): Unfortunately seems to be progressing. Pt understands the etiology of this, and the probability that it will be chronic. Per [facility], advised to avoid anticholinergics. She will stop Benztropine 2 mg BID. F/U with Neurologist at [facility] as scheduled. Do not F/U with Neurologist at [place]. ED as needed. Assessment & Plan (05/21/2023 [...] use of insulin 11/11/2022 Assessment & Plan (04/09/2025 1:42 PM EDT): Continue to follow with endocrinology Assessment & Plan (12/29/2024 4:31 PM EDT): [...] - Continue current medications Severe recurrent major depre ssion with psychotic features (CMS/HCC) 07/02/2022 Assessment & Plan (08/02/2023 12:05 PM EST): She is doing much better, and has started with new psychiatrist so we will not schedule F/U with [facility]. She agrees with the [...] bedtime. She has started with therapist at [facility], and they are awaiting copies [...] (risk/benefit reviewed). She will F/U ROXANA with [facility] for counseling and med mgt. F/U with Neurologist at [facility] per PCP. Also discussed option of seeking care at [facility] ED if movement disorder is intolerable. She [...] psychiatric medications. She has been referred to [facility] for counseling and med mgt, and has been given their phone number to call and request expedited appointment. She will also F/U with Neurologist at [facility] per PCP. Also discussed option of seeking care at [facility] ED if movement disorder is intolerable. She [...] psychiatric medications. She has been referred to [facility] for counseling and med mgt, and has been given their phone number to call and request expedited appointment. She will also F/U with Neurologist at [facility] per PCP. Also discussed option of seeking care at [facility] ED if movement disorder is intolerable. She [...] psychiatric medications. She has been referred to [facility] for counseling and med mgt, and has been given their phone number to call and request expedited appointment. She will also F/U with Neurologist at [facility] per PCP. Also discussed option of seeking care at [facility] ED if movement disorder is intolerable. She [...] from mother. PLAN: 1. Follow up with [facility]: Not recommended for follow-up 2. Patient goal [...] Requesting therapist support and referral to outpatient [facility] for counseling and med mgt. Could [...] no med changes, but we will request [facility] clinician outreach. F/u with me in [...] 1 month. She agrees with the plan. Denis hematuria 06/22/2022 Hand pain 06/22/2022 Hypertensive [...] Screening mammogram for breast cancer 11/11/2022 04/28/2024 Cocaine abuse 06/22/2022 04/09/2025 Assessment & Plan (11/26/2022 11:26 AM EDT): [...] 1 month ago. Denies using other substances. Dysuria 06/22/2022 04/28/2024 Glycosuria 06/22/2022 04/28/2024 Encounters Date Type Department Care Team Description 04/25/2025 Telephone [facility] [address] [place] [address] Brenda Tovar MD telephone call 04/25/2025 Refill [facility] [address] [place] [address] Brenda Tovar MD Type 2 diabetes mellitus with hyperglycemia, with long-term current use of insulin ([facility]) 04/19/2025 Refill [facility] [address] [place] [address] Brenda Tovar MD Hypertension, unspecified type 04/09/2025 1:00 PM EDT Office Visit [facility] [address] [place] [address] Brenda Tovar MD H/O: substance abuse ([facility]) (Primary Dx); Non-traumatic rhabdomyolysis; JOE (acute kidney injury) ([facility]); Type 2 diabetes mellitus with hyperglycemia, with long-term current use of insulin ([facility]); C. difficile diarrhea; Irritable bowel syndrome with both constipation and diarrhea; Dry skin dermatitis; Dysphagia, unspecified type 04/09/2025 Telephone [facility] [address] [place] [address] Brenda Tovar MD NTTS f/u 04/09/2025 Travel 04/09/2025 Refill [facility] [address] [place] [address] Brenda Tovar MD 04/08/2025 Refill [facility] [address] [place] [address] Yudelka Chavez DO 03/29/2025 Telephone [facility] [address] [place] [address] Brenda Tovar MD FYI 03/20/2025 Patient Outreach [facility] [address] [place] [address] Brenda Tovar MD Transition Of Care (Tcm) (HDF scheduled.) 03/19/2025 Patient Outreach [facility] [address], [place] [phone] Brenda Tovar MD Transition Of Care (Tcm) (HDF unscheduled.) 03/16/2025 Refill [facility] [address] [place] [address] Brenda Tovar MD Hypertension, unspecified type 03/13/2025 Orders Only [facility] External Provider, [facility] 03/12/2025 Refill [facility] [address] [place] [address] Brenda Tovar MD Mood disorder ([facility]) 02/26/2025 Refill [facility] [address] [place] [address] Brenda Tovar MD Type 2 diabetes mellitus with hyperglycemia, with long-term current use of insulin ([facility]) 02/19/2025 Refill [facility] [address] [place] [address] Brenda Tovar MD Hypertension, unspecified type 02/13/2025 Refill [facility] [address] [place] [address] Brenda Tovar MD Hypertension, unspecified type 02/08/2025 Refill [facility] [address] [place] [address] Brenda Tovar MD Hypertension, unspecified type 02/06/2025 Refill [facility] [address] [place] [address] Brenda Tovar MD Chronic migraine with aura without status migrainosus, not intractable 02/06/2025 Telephone [facility] [address] [facility] [place] [phone] Brenda Tovar MD 02/01/2025 Telephone [facility] [address] [place] [address] Brenda Tovar MD Durable Medical Equipment ([employer]: Cane, Hand held shower head, Long side bedrails /) from Last 3 Months Immunizations Immunization Administration [...] Sign Reading Time Taken Comments Blood Pressure 112/76 04/09/2025 12:55 PM EDT Pulse 96 04/09/2025 12:55 PM EDT Temperature 36.2 C (97.1 F) 04/09/2025 12:55 PM EDT Respiratory Rate 18 04/09/2025 12:55 PM EDT Oxygen Saturation 96% 04/09/2025 12:55 PM EDT Inhaled Oxygen Concentration - - Weight 93.7 kg (206 lb 9.6 oz) 04/09/2025 12:55 PM EDT Height 165.1 cm (5' 5 ) 04/09/2025 12:55 PM EDT Body Mass Index 34.38 04/09/2025 12:55 PM EDT Plan of Treatment Health Maintenance [...] 1998 Mammogram 2008 SDOH Screening 12/09/2024 12/10/2023 Depression Screening 03/03/2025 03/03/2024, 03/03/20 24 Influenza Vaccine (#1) 2025 , 06/14/2023, 04/23/2022, Additional history exists Diabetes: Urine Protein Screening 03/28/2025 03/28/2024, 12/08/2022, 02/15/2020 Lipid Panel 03/28/2025 03/28/2024, 11/23, 05/22/2021, Additional history exists Diabetes: Hemoglobin A1C 07/09/2025 025, 11/15/2024, 11/13/2024, Additional history exists Tobacco Screening 04/09/2026 04/09/2025 Eye Exam 08/04/2026 08/04/2024, 07/26, 08/04/2024, Additional [...] Name Priority Date/Time Associated Diagnosis Comments POCT GLYCATED HEMOGLOBIN, TOTAL Routine 04/09/2025 1:26 PM EDT Type 2 diabetes mellitus with hyperglycemia, with long-term current use of insulin (CMS/HCC) POCT GLUCOSE Routine 04/09/2025 1:26 PM EDT Type 2 diabetes mellitus with hyperglycemia, with long-term current use of insulin (CMS/HCC) NM LUNG PERFUSION Routine 03/14/2025 8:1 8 AM EDT US RETROPERITONEAL LIMITED Routine 03/13/2025 9:22 PM EDT LACTIC ACID LAB USE ONLY Routine 03/13/2025 7:28 PM EDT HIGH SENSITIVITY TROPONIN I Routine 03/13/2025 7:[address] HEAD WO CONTRAST Routine 03/13/2025 6 :[address] CERVICAL SPINE WO CONTRAST Routine 03/13/2025 6:17 PM EDT ALBUMIN, RANDOM URINE W/CREATININE Routine 03/28/2024 11:30 AM EDT Type 2 diabetes mellitus with hyperglycemia, with long-term current use of insulin (CMS/HCC) LIPID PANEL WITH REFLEX TO DIRECT LDL Routine 03/28/2024 11:11 AM EDT Type 2 diabetes mellitus with hyperglycemia, with long-term current use of insulin (CMS/HCC) ZZZ HISTORICAL HEPATITIS A,B,C PROFILE Routine 09/26/2019 9:47 AM EST from Last 3 Months or Most Recently Relevant to Health Maintenance Results * (ABNORMAL) POCT Hgb A1c (04/09/2025 1:26 PM EDT) Hemoglobin A1C 10.4(A) 4.0 - 5.7 % QC Media Lot # [id number] Lot# Expiration Date 41,627 Blood 04/09/2025 1:26 PM EDT Brenda Ojeda MD POINT OF CARE TEST EN TER/EDIT ORDERABLES Final Result * POCT Glucose (04/09/2025 1:26 PM EDT) Glucose Blood, POC 182 60 - 200 mg/dL QC Media Lot # [id number] Lot# Expiration Date 113,025 Blood Capillary blood specimen / Unknown 04/09/2025 1:26 PM EDT Brenda Ojeda MD POINT OF CARE TEST EN TER/EDIT ORDERABLES Final Result * NM Lung Perfusion (03/14/2025 8:18 AM EDT) Anatomical Region Laterality Modality Body Nuclear Medicine 03/14/2025 8:18 AM EDT Narrative 03/14/2025 10:33 AM EDT [place] [address] Nuclear Medicine Report Signed Patient: Jeny Vides MR#: [id number] 76 : 1970 Acct:[id number] Age/Sex: 54 / F ADM Date: 03/13/25 Loc: [facility] [place] Dr: Jessenia LEES Ordering Physician: Yasmin Cosme Date of Service: 03/14/25 Procedure(s): NM pul perfusion Accession Number(s): [id number] cc: Yasmin Cosme; Brenda Tovar MD EXAMINATION: Nuclear medicine lung perfusion exam. CLINICAL INDICATION: Elevated d-dimer. COMPARISON: Chest x-ray 03/13/2025. TECHNIQUE: Following intravenous administration of 4 mCi of 99m Tc MAA, imaging of both lungs were obtained multiple projections. Examination study was not performed. FINDINGS: Normal perfusion seen to both lungs without any segmental or nonsegmental defect. Ventilation study was not performed. NM/NM pul perfusion IMPRESSION: Normal perfusion scan. Electronically signed by: Pablito Varela MD 03/14/2025 10:30 AM EDT RP Dictated By: Pablito Varela MD Signed By: <Electronically signed by Pablito Varela MD in OV> 03/14/25 1030 DD/ 0818 TD/TT: 03/14/25 1010 Arcade Technician: BREEZY Procedure Note Donotuseinterpreter, Image - 03/14/2025 [place] [address] Nuclear Medicine Report Signed Patient: Jeny Vides EMR#: [id number] 76 : 1970Acct:[id number] Age/Sex: 54 / FADM Date: 03/13/25 [place] [facility] [place] Dr: Jessenia LEES Ordering Physician: Yasmin Cosme Date of Service: 03/14/25 Procedure(s): NM pul perfusion Accession Number(s): [id number] cc: Yasmin Cosme; Brenda Tovar MD EXAMINATION: Nuclear medicine lung perfusion exam. CLINICAL INDICATION: Elevated d-dimer. COMPARISON: Chest x-ray 03/13/2025. TECHNIQUE: Following intravenous administration of 4 mCi of 99m Tc MAA, imaging of both lungs were obtained multiple projections. Examination study was not performed. FINDINGS: Normal perfusion seen to both lungs without any segmental or nonsegmental defect. Ventilation study was not performed. NM/NM pul perfusion IMPRESSION: Normal perfusion scan. Electronically signed by: Pablito Varela MD 03/14/2025 10:30 AM EDT RP Dictated By: Pablito Varela MD Signed By: <Electronically signed by Pablito Varela MD in OV> 03/14/25 1030 DD/ 0818 TD/TT: 03/14/25 1010 Arcade Technician: [facility] [place] [facility] External Provider IMG NM PROCEDURES Final Result * US RETROPERITONEAL LIMITED (03/13/2025 9:22 PM EDT) Anatomical Region Laterality Modality Abdomen Ultrasound 03/13/2025 9:22 PM EDT Narrative 03/13/2025 9:24 PM EDT [address] [address] Ultrasound Report Signed Patient: Jeny Vides MR#: [id number] 76 : 1970 Acct:[id number] Age/Sex: 54 / F ADM Date: 03/13/25 Loc: [facility]: Justo Estes MD Ordering Physician: Luiz Mckinney MD Date of Service: 03/13/25 Procedure(s): US retroperitoneal limited Accession Number(s): [id number] cc: Brenda Tovar MD; Luiz Mckinney MD CLINICAL HISTORY: acute renal failure, pls eval for obstruction Renal ultrasound Comparison: US/SR - US ABDOMEN - 03/10/23 08:14 EDT Findings: The kidneys are normal in echotexture bilaterally. No hydronephrosis. The right kidney is normal in size, measuring 10.6cm in length. The left kidney is normal in size, measuring 10.8cm in length. Increased echogenicity of the liver may indicate hepatic steatosis. Impression: No acute findings. No hydronephrosis. This document has been electronically signed by: Pam Melendez MD on 03/13/2025 21:22:42 Dictated By: Pam Bates MD Signed By: <Electronically signed by Pam Bates MD in OV> 03/13/252122 DD/ 21 TD/TT: 03/13/252121 Arcade Technician: Procedure Note Donotuseinterpreter, Image - 03/13/[address] [address] Ultrasound Report Signed Patient: Jeny Vides EMR#: [id number] 76 : 1970Acct:[id number] Age/Sex: 54 / FADM Date: 03/13/25 Loc: [facility]: Justo Estes MD Ordering Physician: Luiz Mckinney MD Date of Service: 03/13/25 Procedure(s): US retroperitoneal limited Accession Number(s): [id number] cc: Brenda Tovar MD; Luiz Mckinney MD CLINICAL HISTORY: acute renal failure, pls eval for obstruction Renal ultrasound Comparison: US/SR - US ABDOMEN - 03/10/23 08:14 EDT Findings: The kidneys are normal in echotexture bilaterally. No hydronephrosis. The right kidney is normal in size, measuring 10.6cm in length. The left kidney is normal in size, measuring 10.8cm in length. Increased echogenicity of the liver may indicate hepatic steatosis. Impression: No acute findings. No hydronephrosis. This document has been electronically signed by: Pam Melendez MD on 03/13/2025 21:22:42 Dictated By: Pam Bates MD Signed By: <Electronically signed by Pam Bates MD in OV> 03/13/252122 DD/ 21 TD/TT: 03/13/252121 Arcade Technician: [facility] External Provider IMG US PROCEDURES Final Result * Lactic Acid (03/13/2025 7:28 PM EDT) Pathologist [facility] Lactic Acid 2.0 0.5 - 2.0 mmol/L [facility] 03/13/2025 7:28 PM EDT 03/13/2025 7:31 PM EDT Generic External Data Provider LAB BLOOD ORDERAB LES Final Result [facility] [address] [place] [phone] * (ABNORMAL) High Sensitivity Troponin I (03/13/2025 7:28 PM EDT) Pathologist [facility] TROPONIN I HIGH SENSITIVITY 70.8(HH) <3.5 - 17.0 ng/L [facility] Comment:Critical value for t est(s): TROP Results called to yomi back by: LACHELLE Person calling: NOY Date: 03.13.25Time: 1958The Judd high sensitivity Troponin-I results should beused in conjunction with other diagnostic information suchas ECG, clinical observations and information, and patientsymptoms to aid in the diagnosis of DE. 03/13/2025 7:28 PM EDT 03/13/2025 7:31 PM EDT us Generic External Data Provider LAB BLOOD ORDERAB LES Final Result Performing Organization Address City/State/[facility] Co de Phone Number [facility] [address] [place] [address] [phone] * CT Head w/o Contrast (03/13/2025 6:23 PM EDT) Anatomical Region Laterality Modality Head, Neck Computed Tomogra phy 03/13/2025 6:23 PM EDT Narrative 03/13/2025 6:24 PM EDT [place] [address] CT Scan Report Signed Patient: Jeny Vides MR#: [id number] 76 : 1970 Acct:[id number] Age/Sex: 54 / F ADM Date: 03/13/25 Loc: [facility].ED Attending Dr: Ordering Physician: Aleksandra Bliss DO Date of Service: 03/13/25 Procedure(s): CT head/brain wo IV con Accession Number(s): [id number] cc: Brenda Tovar MD; Aleksandra Bliss DO Report Number: [id number]: Total DLP = 814.00 mGy-cm CLINICAL HISTORY: falls CT head without contrast Comparison: None available Findings: No acute hemorrhage. No extra-axial fluid collection. No hydrocephalus, mass-effect or herniation. Strauss-white differentiation is maintained. White matter is within normal limits for age. No acute orbital pathology. Mild multifocal frontal scalp soft tissue swelling versus scarring. 2.5 mm radiopaque foreign body in the right frontal scalp. No fracture. Nasal septal defect measuring 1.3 cm in anterior-posterior dimension. Near-complete opacification of the right maxillary sinus may indicate sinusitis. Retention cyst/polyp in the left maxillary sinus. The other visualized paranasal sinuses are predominantly clear. The mastoid air cells are clear. Impression: No acute intracranial findings. This document has been electronically signed by: Pam Melendez MD on 03/13/2025 18:23:23 Dictated By: Pam Bates MD Signed By: <Electronically signed by Pam Bates MD in OV> 03/13/251823 DD/ 22 TD/TT: 03/13/251822 Arcade Technician: Procedure Note Donotuseinterpreter, Image - 03/13/[address] [place] [address] [address] Scan Report Signed Patient: Jeny Vides EMR#: [id number] [birth year] : 1970Acct:[id number] Age/Sex: 54 / FADM Date: 03/13/25 Loc: [facility] Attending Dr: Ordering Physician: Aleksandra Bliss DO Date of Service: 03/13/25 Procedure(s): CT head/brain wo IV con Accession Number(s): [id number] cc: Brenda Tovar MD; Aleksandra Bliss DO Report Number: [id number]: Total DLP = 814.00 mGy-cm CLINICAL HISTORY: falls CT head without contrast Comparison: None available Findings: No acute hemorrhage. No extra-axial fluid collection. No hydrocephalus, mass-effect or herniation. Strauss-white differentiation is maintained. White matter is within normal limits for age. No acute orbital pathology. Mild multifocal frontal scalp soft tissue swelling versus scarring. 2.5 mm radiopaque foreign body in the right frontal scalp. No fracture. Nasal septal defect measuring 1.3 cm in anterior-posterior dimension. Near-complete opacification of the right maxillary sinus may indicate sinusitis. Retention cyst/polyp in the left maxillary sinus. The other visualized paranasal sinuses are predominantly clear. The mastoid air cells are clear. Impression: No acute intracranial findings. This document has been electronically signed by: Pam Melendez MD on 03/13/2025 18:23:23 Dictated By: Pam Bates MD Signed By: <Electronically signed by Pam Bates MD in OV> 03/13/251823 DD/ 22 TD/TT: 03/13/251822 Arcade Technician: [facility] External Provider IMG CT PROCEDURES Final Result * CT Cervical Spine w/o Contrast (03/13/2025 6:17 PM EDT) Anatomical Region Laterality Modality Spine, C-spine Computed Tomogra phy 03/13/2025 6:17 PM EDT Narrative 03/13/2025 6:18 PM EDT [place] [address] CT Scan Report Signed Patient: Jeny Vides MR#: [id number] [birth year] : 1970 Acct:[id number] Age/Sex: 54 / F ADM Date: 03/13/25 Loc: HO.ED Attending Dr: Ordering Physician: Aleksandra Bliss DO Date of Service: 03/13/25 Procedure(s): CT cervical spine wo IV con Accession Number(s): [id number] cc: Brenda Tovar MD; Aleksandra Bliss DO Report Number: [id number]: Total DLP = 655.00 mGy-cm CLINICAL HISTORY: falls CT cervical spine without contrast Comparison: None available Findings: Normal alignment. Status post ACDF C5 through C7. Intact hardware No fracture. No severe central spinal canal stenosis. No epidural hematoma. Normal thickness of the prevertebral soft tissues. The lung apices are clear. Impression: No acute findings. This document has been electronically signed by: Pam Melendez MD on 03/13/2025 18:17:20 Dictated By: Pam Bates MD Signed By: <Electronically signed by Pam Bates MD in OV> 03/13/251816 DD/ 16 TD/TT: 03/13/251816 Arcade Technician: Procedure Note Donotuseinterpreter, Image - 03/13/[address] [address] [address] Scan Report Signed Patient: Jeny Vides EMR#: [id number] 74 : 1970Acct:[id number] Age/Sex: 54 / FADM Date: 03/13/25 Loc: .ED Attending Dr: Ordering Physician: Aleksandra Bliss DO Date of Service: 03/13/25 Procedure(s): CT cervical spine wo IV con Accession Number(s): [id number] cc: Brenda Tovar MD; Aleksandra Bliss DO Report Number: [id number]: Total DLP = 655.00 mGy-cm CLINICAL HISTORY: falls CT cervical spine without contrast Comparison: None available Findings: Normal alignment. Status post ACDF C5 through C7. Intact hardware No fracture. No severe central spinal canal stenosis. No epidural hematoma. Normal thickness of the prevertebral soft tissues. The lung apices are clear. Impression: No acute findings. This document has been electronically signed by: Pam Melendez MD on 03/13/2025 18:17:20 Dictated By: Pam Bates MD Signed By: <Electronically signed by Pam Bates MD in OV> 03/13/251816 DD/ 16 TD/TT: 03/13/251816 Arcade Technician: [facility] External Provider IMG CT PROCEDURES Final Result * (ABNORMAL) Albumin, Random Urine W/Creatinine (03/28/2024 11:30 AM EDT) Creatinine, Urine 28.16 mg/dL [facility] Microalbumin Urine 29.0 mg/L [facility] Microalbum Creatinine Ratio Ur 102.9(H) <30 ug/mg cr [facility] Comment:Albumin/Creatinine R atio Reference Ranges: Normal: < 30 ug/mg creatinine Microalbuminuria: 30 - 300 ug/mg creatinineClinical Albuminuria: > 300 ug/mg creatinine Urine (Urine, Random) 03/28/2024 11:30 AM EDT 03/28/2024 1:10 PM EDT us Brenda Ojeda MD LAB URINE ORDERABLES Final Result Performing Organization Address [facility] Co de Phone Number [facility] [address] [place] [phone] [phone] * (ABNORMAL) Lipid Panel with Reflex to Direct LDL (03/28/2024 11:11 AM EDT) Triglycerides 254(H) <150 mg/dL [facility] Comment:Desirable Triglyceri de: less than 150 mg/dLBorderline High Triglyceride 150-199 mg/dLHigh Triglyceride: 200-499 mg/dLVery High Triglyceride: greater than or equal to 5OO mg/dL Cholesterol 168 <200 mg/dL [facility] Comment:Desirable Cholestero l: less than 200 mg/dLBorderline High Cholesterol: 200-239 mg/dLHigh Cholesterol: greater than 239 mg/dL LDL Cholesterol Calculated 68 <100 mg/dL [facility] Comment:Desirable LDL: less than 100 mg/dLNear Optimal/Above Optimal LDL: 110- 129 mg/dLBorderline High LDL: 130-159 mg/dLHigh LDL: 160-189 mg/dLVery High LDL: greater than or equal to 190 mg/dL HDL Cholesterol 50 >40 mg/dL [facility] Comment:Desirable HDL: great er than 40 mg/dL Note: This HDL assay may give artificially low results in patients with liver disease. Blood 03/28/2024 11:1 1 AM EDT 03/28/2024 1:28 PM EDT us Brenda Ojeda MD LAB BLOOD ORDERABLES Final Result Performing Organization Address [facility]/ZIP Co de Phone Number [facility] [address] [place] [phone] * HEPATITIS A,B,C PROFILE (09/26/2019 9:47 [...] Historical Provider HISTORICAL/NON ORDERABLE LABS Final Result [facility] [address] from Last 3 Months or Most Recently Relevant to Health Maintenance Insurance [facility] < 63 [place] [id number] [facility] Care Teams Water Quality Control Engineer Relationship Specialty Start Date End Date Brenda Tovar MD [address] [place] [phone] PCP - General Family Medicine 02/16/19 Eugene Jarvis FNP [address] [place] [address] Nurse Practitioner Family Medicine 06/21/23
--- OUTSIDE RECORDS SUMMARY | 2025-04-30 13:58 | XMS_ITS | Encounter Summary ---
Author Organization [employer] Address [address] [place] [address] 7 [place] [address] Care Team Providers Care Cement Handler Name Role Phone Brenda Tovar MD Primary Care Provide r Eugene Jarvis Unavailable Unavailable Reason for Visit * Reason Onset Date Comments telephone call 04/25/2025 Encounter Details Date Type Department Care Team ([facility] st Contact Info) Description 04/25/2025 Telephone [facility] [address] [place], [place] [phone] Brenda Tovar MD [address] [place] [address] telephone call Social History Tobacco Use Types Packs/Day Years [...] encounter Miscellaneous Notes * Telephone Encounter - Marylu Stafford - 04/25/2025 2:44 PM EDT Pt walked in requesting a refill for her injection Mounjaro. documented in this encounter Plan of Treatment Not on file documented as of this encounter Visit Diagnoses Not on filedocumented in this encounter Additional Health Concerns Assessment Noted Time PHQ-9 Depression Total Score: 0 03/03/20 24 11:00 AM EDT documented as of this encounter Care Teams Cement Handler Relationship Specialty Start Date End Date Brenda Tovar MD [address] [place] [address] PCP - General Family Medicine 02/16/19 Eugene Jarvis FNP [address] [place] [address] Nurse Practitioner Family Medicine 06/21/23 Elzbieta JACOBO 03/18/25 04/25/25 documented as of this encounter
--- OUTSIDE RECORDS SUMMARY | 2025-04-30 13:58 | XMS_ITS | Encounter Summary ---
Author Organization [employer] Address [address] [facility] 7 [place] [address] Care Team Providers Care Outside Solar Sales Consultant Name Role Phone Brenda Tovar MD Primary Care Provide r Eugene Jarvis Unavailable Unavailable Reason for Visit * Reason Comments Med Refill Encounter Details Date Type Department Care Team ([facility] st Contact Info) Description 03/13/2024 Refill [facility] [address] [place], [place] [phone] Brenda Tovar MD [address] [place] [address] Moderate persistent asthma without complication Social History [...] documented as of this encounter Care Teams Outside Solar Sales Consultant Relationship Specialty Start Date End Date Brenda Tovar MD [address] [place] [address] PCP - General Family Medicine 02/16/19 Eugene Jarvis FNP [address] [place] [address] Nurse Practitioner Family Medicine 06/21/23 [facility] 04/25/25 documented as of this encounter
--- OUTSIDE RECORDS SUMMARY | 2025-04-30 13:58 | XMS_ITS | Encounter Summary ---
Author Organization [employer] Address [address] [place] [address] 7 [place] [address] Care Team Providers Care Beef Pluck Trimmer Name Role Phone Brenda Tovar MD Primary Care Provide r Eugene Jarvis Unavailable Unavailable Reason for Visit * Reason Onset Date Comments Hospital Follow-up 12/01/2024 Encounter Details Date Type Department Care Team (Late st Contact Info) Description 12/01/2024 Telephone [facility] [address] [place], [place] [phone] Brenda Tovar MD [address] [place], [place] [phone] Hospital Follow-up Social History Tobacco Use Types Packs/Day Years [...] encounter Miscellaneous Notes * Telephone Encounter - Suki Khoury - 12/22/2024 12:50 PM EDT Tc from pt returning call in regards Hospital Follow Up Appointment. Please return call as she will like to f/u with PCP [phone] * Telephone Encounter - Janet Fang - 12/01/2024 9:50 AM EDT Tc from pt requesting a HDF appt. Hospital: [facility] Date of admission: 11/13 Discharge date: 11/15 Diagnosed: - Mouth swelling - JOE (acute kidney injury) - hyperglycemia - Hyperlipidemia *Send message to May Clinical Care Coordinators documented in this encounter Plan of Treatment Not on file documented as of this encounter Visit Diagnoses Not on filedocumented in this encounter Additional Health Concerns Assessment Noted Time PHQ-9 Depression Total Score: 0 03/03/20 24 11:00 AM EDT documented as of this encounter Care Teams Beef Pluck Trimmer Relationship Specialty Start Date End Date Brenda Tovar MD [address] [place] [address] PCP - General Family Medicine 02/16/19 Eugene Jarvis FNP [address] [place] [address] Nurse Practitioner Family Medicine 06[facility]21/[facility] 04/25/25 documented as of this encounter
--- OUTSIDE RECORDS SUMMARY | 2025-04-30 13:58 | XMS_ITS | Encounter Summary ---
Author Organization [employer] Address [address] [place] [address] 7 [place] [address] Care Team Providers Care Laborer Tanbark Name Role Phone Brenda Tovar MD Primary Care Provide r Eugene Jarvis Unavailable Unavailable Reason for Visit * Reason Comments Med Refill Encounter Details Date Type Department Care Team ([facility] st Contact Info) Description 04/17/2023 Refill [facility] [address] [place], [place] [phone] Dragan Stoner FNP Constipation, unspecified constipation type [...] documented as of this encounter Care Teams Laborer Tanbark Relationship Specialty Start Date End Date Brenda Tovar MD [address] [place] [address] PCP - General Family Medicine 02/16/19 Eugene Jarvis FNP [address] [place] [address] Nurse Practitioner Family Medicine 06/21/23 Elzbieta JACOBO 03/18/25 04/25/25 documented as of this encounter
--- OUTSIDE RECORDS SUMMARY | 2025-04-30 13:59 | XMS_ITS | Encounter Summary ---
Author Organization [employer] Address [address] [facility] 7t [place] [address] Care Team Providers Care Clinical Instructor Name Role Phone Brenda Tovar MD Primary Care Provide r Eugene Jarvis Unavailable Unavailable Reason for Visit * Reason Comments Med Refill Encounter Details Date Type Department Care Team ([facility] st Contact Info) Description 10/06/2023 Refill [facility] [address] [place] [address] Eugene Jarvis FNP Severe recurrent major depression [...] major depression with psychotic features (CMS/HCC) (HCC) Major depressive disorder, recurrent episode, severe, specified as with psychotic behavior Severe recurrent major depressive disorder with psychotic features (CMS/HCC) (HCC) documented in this encounter Additional Health Concerns Assessment Noted Time PHQ-9 Depression Total Score: 16 024 11:11 AM EST documented as of this encounter Care Teams Clinical Instructor Relationship Specialty Start Date End Date Brenda Tovar MD [address] [place] [address] PCP - General Family Medicine 02/16/19 Eugene Jarvis FNP [address] [place] [address] Nurse Practitioner Family Medicine 06/21/23 Elzbieta Melo 03/18/25 04/25/25 documented as of this encounter
--- OUTSIDE RECORDS SUMMARY | 2025-04-30 13:59 | XMS_ITS | Encounter Summary ---
Author Organization [employer] Address [address] [facility] 7t [place] [address] Care Team Providers Care Stockbroking Dealer Name Role Phone Brenda Tovar MD Primary Care Provide r Eugene Jarvis Unavailable Unavailable Reason for Visit * Reason Comments Med Refill Encounter Details Date Type Department Care Team ([facility] st Contact Info) Description 10/05/2023 Refill [facility] [address] [place] [address] Eugene Jarvis FNP Severe recurrent major depression [...] documented as of this encounter Care Teams Stockbroking Dealer Relationship Specialty Start Date End Date Brenda Tovar MD [address] [place] [address] PCP - General Family Medicine 02/16/19 Eugene Jarvis FNP [address] [place] [address] Nurse Practitioner Family Medicine 06/21/23 Elzbieta Melo 03/18/25 04/25/25 documented as of this encounter
--- OUTSIDE RECORDS SUMMARY | 2025-04-30 13:59 | XMS_ITS | Encounter Summary ---
Author Organization [employer] Address [address] [facility] 7 [place] [address] Care Team Providers Care Charter Representative Name Role Phone Brenda Tovar MD Primary Care Provide r Eugene Jarvis Unavailable Unavailable Reason for Visit * Reason Comments Med Refill Encounter Details Date Type Department Care Team ([facility] st Contact Info) Description 08/24/2023 Refill [facility] [address] [place] [address] Brenda Tovar MD [address] [place] [address] Social History Tobacco Use Types Packs/Day Years [...] documented as of this encounter Care Teams Charter Representative Relationship Specialty Start Date End Date Brenda Tovar MD [address] [place] [address] PCP - General Family Medicine 02/16/19 Eugene Jarvis FNP [address] [place] [address] Nurse Practitioner Family Medicine 06/21/23 [facility] 03/18/25 04/25/25 documented as of this encounter
== END 2025-04-30 11:52 | disposition home or self-care (01) ==
LOC: HO.HPS 11:23
PROVIDERS: PCP Internal Medicine; Visit Provider Internal Medicine Pulmonary Disease
DX: J45.909 Unspecified asthma, uncomplicated (principal); Z91.09 Other allergy status, other than to drugs and biological substances
CPT/HCPCS: 99214

== ENCOUNTER → 2025-04-30 11:23 | Outpatient (BNVA) | payer OTHER, SELFPAY | PROVIDERS: PCP Internal Medicine; Visit Provider Internal Medicine Pulmonary Disease | DX: J45.50 Severe persistent asthma, uncomplicated (principal); Z91.09 Other allergy status, other than to drugs and biological substances | CPT/HCPCS: 99212 ==

== ENCOUNTER 2025-06-30 19:26 | Inpatient (IN) | payer OTHER, SELFPAY ==
[2025-06-30] VITALS (10 sets, daily range): BP systolic 94–157; BP diastolic 51–96; PULSE 97–113; RESP 16–20; TEMP 36.7–37.2; O2SAT 95–100; BMI 30.2
--- NOTE | 2025-06-30 | ECG_ITS ---
Test Reason : FALL Blood Pressure : */* mmHG Vent. Rate : 102 BPM Atrial Rate : 102 BPM P-R Int : 142 ms QRS Dur : 80 ms QT Int : 332 ms P-R-T Axes : 62 12 46 degrees QTcB Int : 432 ms Sinus tachycardia Cannot rule out Anterior infarct , age undetermined Abnormal ECG When compared with ECG of 13-Mar-2025 16:13, No significant change was found Referred By: Generic ED Physician Electronically Signed By: JOS RODRÍGUEZ
--- NOTE | ~2025-06-30 | CT_ITS ---
CLINICAL HISTORY: Fall; Trauma; Syncope CT chest with contrast Comparison: Prior chest radiographs most recently on 03/13/2025 Findings: The heart is normal size. The visualized thyroid and mediastinum are unremarkable. No dense focal airspace consolidation. There are scattered bilateral pulmonary nodules up to 3 mm in size. Suggestion of mild COPD/emphysema background. The visualized upper abdomen is unremarkable. No acute fractures. IMPRESSION: 1. Scattered small 2-3 mm nodules throughout both lungs mainly in upper to midlung distribution. These favored to be infectious/inflammatory in etiology however overall indeterminate. Consider follow-up with CT in 2-3 months to assess for stability /resolution. 2. Otherwise, there is no acute cardiopulmonary abnormality identified. This document has been electronically signed by: Surya Erickson MD on 06/30/2025 21:28:43
--- NOTE | ~2025-06-30 | CT_ITS ---
CLINICAL HISTORY: Syncope; Headache; LUE Weakness CT angiography head and neck with contrast. 3D Postprocessing. Comparison: CT head 06/30/2025 Findings: Aortic arch and cervical great vessels are patent with no aneurysm, dissection, hemodynamically significant stenoses, or occlusion. Intracranial arteries are patent. No aneurysm, dissection, hemodynamically significant stenoses, or occlusion. No abnormal intracranial enhancement. The visualized thyroid gland is unremarkable. No cervical mass or fluid collection. Lung apices clear. No acute fracture. IMPRESSION: 1. No evidence of intracranial large vessel occlusion. 2. Patent bilateral carotid and vertebral arteries. 3. Additional chronic/nonacute findings as above. This document has been electronically signed by: Surya Erickson MD on 06/30/2025 21:14:58
--- NOTE | ~2025-06-30 | XR_ITS ---
CLINICAL HISTORY: Fall; Contusion; Pain 2 view left shoulder Comparison: CR/SR - XR SHOULDER 2 OR MORE VIEWS LEFT - 06/03/23 14:22 EST Findings: No fractures or dislocations. Moderate degenerative changes of the acromioclavicular and glenohumeral joints. No erosions. No radiopaque foreign body. Cervical fusion hardware partially visualized. IMPRESSION: 1. No acute fracture This document has been electronically signed by: La Nena Pitts MD on 07/01/2025 00:52:44
--- NOTE | ~2025-06-30 | CT_ITS ---
CLINICAL HISTORY: fall CT head without contrast Comparison: CT head 03/13/2025 Findings: No intra-axial mass, midline shift, hydrocephalus, or acute hemorrhage. No significant atrophy-like change or white matter disease. There is no sinus or mastoid fluid. The orbits are within normal limits. No skull fracture. IMPRESSION: 1. No acute intracranial findings. If there is high clinical degree of suspicion for acute infarct, consider MRI with diffusion imaging for further evaluation. 2. Additional findings as above. This document has been electronically signed by: Surya Ercikson MD on 06/30/2025 20:48:38
--- NOTE | ~2025-06-30 | MR_ITS ---
CLINICAL HISTORY: lue weakness MR Brain without gadolinium Comparison: CT head and CTA of the head and neck 06/30/2025 Findings: No restricted diffusion. No intra-axial mass or hemorrhage. No midline shift. No hydrocephalus. Vascular flow voids are intact. Orbital contents are unremarkable. The sinuses and mastoid air cells are clear. No focal bone lesion. IMPRESSION: No acute findings. Specifically, no foci of restricted diffusion to indicate acute or subacute infarct. This document has been electronically signed by: Surya Erickson MD on 07/01/2025 16:07:48
--- NOTE | 2025-06-30 19:39 | PC.NURSE ---
late entry- pt biba from home, a&ox4, respirations even and unlabored. pt reports making coffee, remembers getting dizzy and falling around 10am /, pt reports she does not remember anything after the event and does not know when she woke up. pt neighbor called 911 for her at some point. pt reports she fell on her left side and was up against the heater. pt noted to have bruising to the left shoulder, +pulses noted but pt states she can not move her arm. pt has small madsen to right ankle and toes. 20g placed in right wrist, labs, ekg and vitals obtained. NABEEL Daniel called to bedside and pt assessed. Stroke alert called at 2016 by provider and pt taken to ct. pt remains in c collar.
[2025-06-30 20:09] LABS: Hematocrit 37.4 % (37.0-47.0); Hemoglobin 11.9 g/dl (12.0-16.0); Imm Gran Abs Auto 0.05 X10*3/uL (0.00-0.03); Imm Gran Pct Auto 0.4 % (0.0-0.4); Lymphocytes Absolute Auto 1.3 X10*3/uL (1.2-4.9); MANUAL DIFF FLAG NO; Mean Corpuscular HGB Conc 31.8 g/dl (31.0-35.0); Mean Corpuscular Hemoglobin 25.9 pg (27.0-33.0); Mean Corpuscular Volume 81.5 fL (80.0-98.0); NRBC Abs Auto 0.000 X10*3/uL (0.0-0.012); NRBC Pct Auto 0.0 /100WBC (0.0-0.2); Platelet Count 257 X10*3/uL (160-400); Red Blood Count 4.59 X10*6/uL (4.20-5.50); White Blood Count 13.3 X10*3/uL (4.8-10.8)
[2025-06-30 20:15] LABS: INTERNATIONAL NORM RATIO 0.9 (0.9-1.1); Prothrombin Time 11.1 SEC (11.2-13.5)
[2025-06-30 20:16] LABS: Glucose, Whole Blood 407 mg/dL (60-115)
[2025-06-30 20:22] LABS: Prothrombin Time Whole Bld POC 11.2 sec (11.1-13.5); ~PT, ~INR - Anti Coag Clinic 0.9 (0.9-1.1)
--- NOTE | 2025-06-30 20:23 | ED_ITS ---
HPI - Fall General Chief Complaint: Fall Stated Complaint: syncope Time Seen by Provider: 06/30/25 20:06 Source: patient and EMS Mode of arrival: EMS Limitations: no limitations History of Present Illness ED Provider: Kings LEES HPI Narrative: The patient is a 54-year-old female who lives alone, was found on her bathroom floor by a neighbor who heard her yelling for help and EMS was activated. Patient last recalls making a cup of coffee around 04:00 this morning, then has no further memory until realizing she was on the floor and calling for help. Estimates the fall occurred greater than 12 hours prior to ED arrival. She complains of pain ?everywhere,? a headache, and inability to move the left arm. She reports not being able to move the left arm due to difficulty making the movement, not just pain. She reports feeling markedly weak for several months, describing it as ?like I have no bones.? She denies alcohol or drug use. Smokes approximately one pack every 3-4 days. Recently completed a course of amoxicillin for a facial skin infection; no current antibiotics. No known history of seizures. On aspirin howver no other anticoagulant use reported. Related Data Home Medications ?Medication ?Instructions ?Recorded ?Confirmed aspirin 81 mg tablet,delayed 81 mg PO DAILY 06/10/20 0 03/13/25 release blood-glucose meter #1 ea 06/10/20 09/21/24 blood sugar diagnostic (FreeStyle #10 ea 12/16/2008/27 Lite Strips) lancets 28 gauge #100 ea 12/16/20 09/21/24 pen needle, diabetic 31 gauge x #50 ea 12/16/2010/08 albuterol sulfate 90 mcg/actuation 2 puff PO Q4H PRN W heezing 11/01/21 03/13/25 aerosol inhaler gabapentin 800 mg tablet 1 tab PO TID 11/01/21 ropinirole 0.25 mg tablet 1 tab PO BEDTIME 11/01/21 clonidine HCl 0.1 mg tablet 0.1 mg PO TID PRN Anxiety 04/21/22 03/13/25 insulin pump cart,cont inf,BT #5 ea 07/06/23 09/21/24 (Omnipod Dash Pods (Gen 4) subcutaneous cartridge) lancets 33 gauge (TRUEplus Lancets) #100 ea 07/06/23 0 09/21/24 mirtazapine 30 mg tablet 30 mg PO BEDTIME 08/31/23 quetiapine 300 mg tablet 600 mg PO BEDTIME 08/31/23 0 03/13/25 atorvastatin 80 mg tablet 80 mg PO DAILY 09/21/2402/23 bupropion HCl 100 mg tablet,12 hr 100 mg PO DAILY 08/2703/13/25 sustained-release insulin degludec 100 unit/mL (3 30 unit subcut BEDTIME PRN IF 09/21/24 03/13/25 mL) subcutaneous pen (Tresiba NEEDED FOR HYPERGLYCEMIA FlexTouch U-100 insulin) lisinopril 20 mg tablet 20 mg PO DAILY 09/21/2402/23 metformin 500 mg tablet,extended 1,000 mg PO BID 09/2103/13/25 release 24 hr fluticasone propionate 50 2 spray intranasal BID PRN 0 11/13/24 03/13/25 mcg/actuation nasal Allergic Symptoms spray,suspension insulin aspart (niacinamide) See Rx Instructions .Rout e .COMPLEX 11/13/24 03/13/25 (U-100) 100 unit/mL subcutaneous solution (Fiasp U-100 Insulin) omeprazole 20 mg capsule,delayed 20 mg PO DAILY@0630 0 11/13/24 03/13/25 release clonazepam 1 mg tablet 1 mg PO TID PRN anxiety 02/2303/13/25 deutetrabenazine 6 mg tablet 6 mg PO BID 03/13/2502/23 (Austedo) doxepin 50 mg capsule 50 mg PO BEDTIME 03/13/25 tirzepatide 7.5 mg/0.5 mL 7.5 mg subcut WE 03/13/25 subcutaneous pen injector (Arturo) Previous Rx's ?Medication ?Instructions ?Recorded fluticasone 232 mcg-salmeterol 14 1 inh PO BID #1 ea 0 02/08/25 mcg/actuation breath activated powdr vancomycin 125 mg capsule 125 mg PO Q6H #48 caps 03/17 Allergies Allergy/AdvReac Type Severity Reaction Status Date / Time Penicillins (PENICILLINS) Allergy Intermediate HIVES Verified 06/30/25 19:53 ibuprofen Allergy Unknown unknown Verified 06/30/25 19:53 penicillin V Allergy Unknown Unknown Verified 06/30/25 19:53 NSAIDS (Non-Steroidal AdvReac Mild STOMACH Verified 06/30/25 19:53 Anti-Inflamma (NSAIDS UPSET (NON-STEROIDAL ANTI-INFLAMMA) Review of Systems 2 Review of Systems: Yes all other systems are reviewed and are negative FORMERLY [facility] Past Medical History Medical History Lipoma of abdominal wall T2DM (type 2 diabetes mellitus) Arthritis of knee Restless leg syndrome Sleep apnea Gastritis High cholesterol Hypertension Fibromyalgia Arthritis Migraines Diabetes Asthma Surgical History Hx of fusion of cervical spine Hx of breast biopsy Hx of arthroscopic knee surgery Hx of cholecystectomy History of esophagogastroduodenoscopy (EGD) History of carpal tunnel release Hx of hysterectomy Family History Family History Father No problems noted. Mother HTN (hypertension) Arthritis Diabetes Maternal Aunt Cancer of unknown origin Social History Social History (Updated 03/13/25 @ 21:05 by BILLY Estrada) Household Members: Other Household Members Other:: patient does not have a permanent place to stay Housing: Other Housing Other:: patient stays with whoever she can. No stable housing Do you presently have visiting nurse or other home services: No Alcohol intake: never Patient Tobacco Use Status: Current everyday Tobacco user Tobacco use type: Cigarette Cigarettes Per Day: 10 Smoked in Last 30 Days: Yes e-Cigarette/Vaping Use: Currently Using Second Hand Smoke Exposure: No Use of substances other than those prescribed or required for medical reasons: No Substance Use Type: Crack/Cocaine Advance Directives: No Advance Directives Information Provided: No Do you have a plan to hurt others: No Plan Patient : No service: No Current occupational status: unemployed Current occupation: right handed Physical Exam 2 Vital Signs: Vital Signs: Last Vital Signs Temp 99.0 F 06/30/25 23:08 Pulse 97 06/30/25 23:08 Resp 17 06/30/25 23:08 BP 151/80 H 06/30/25 23:08 Pulse Ox 100 06/30/25 23:08 O2 Del Method Room Air 06/30/25 23:08 BMI result Body Mass Index 30.2 CONSTITUTIONAL: The patient appears obese, chronically ill, clinically dehydrated, but otherwise in no acute distress. Vital signs as documented. HEAD: Atraumatic, normocephalic. EYES: EOMs intact, pupils equal and appropriatively reactive, conjunctiva clear, no exudate. ENT: Nares patent, no discharge. Airway patent, no audible stridor, visible mucosa is pink and without noted lesions, but is markedly dry. NECK: Trachea is midline, no obvious masses or gross abnormalities. CHEST: Symmetric movement, normal appearance. LUNGS: LS present and CTAB, no w/r/r. Non-labored work of breathing. CARDIAC: Regular Rhythm, S1/S2 appreciated, no murmurs, rubs or gallops. ABDOMEN: Abdomen soft and non-tender x4 quadrants, no palpable masses or organomegaly. : Deferred. EXTREMITIES: Normal tone x3, minimal effort against gravity in the LUE, strength 1/5, contusion noted to the left shoulder, no anterior fullness or deltoid step off, distal CSM intact, strength 1/5 in the LUE, moves all other extremities spontaneously without reported pain. No other obvious acute injury or deformity noted. NEURO: Alert and oriented x3, CN II-XII intact. Cerebellar Functioning intact x3. LUE strength with minimal effort against gravity, unequal grasp, no obvious sensory deficits. Downgoing babinski bilaterally, Mild to moderate dysarthria, speech otherwise appropriate. NIHSS 4. PSYCH: normal affect, appropriate eye contact, with appropriate response to questioning. No reported suicidality or homicidality. SKIN: Warm, dry, color appropriate, normal turgor. No rashes noted. NIH Stroke Scale Internal: Initial- Upon Arrival Time: 08:20 Level of Consciousness: Alert Level of Consciousness Questions: Answers both questions correctly Level of Consciousness Commands: Performs both tasks correctly Best Gaze: Normal Visual: No visual loss Facial Palsy: Normal Motor Arm (Right): No drift Motor Arm (Left): Some effort against gravity Motor Leg (Right): No drift Motor Leg (Left): No drift Limb Ataxia: Present in one limb Sensory: Normal Best Language: No aphasia Dysarthia: Mild to moderate dysarthria Extinction and Inattention: No abnormality Score: 4 Medications Administered Discontinued Medications Generic Name Dose Route Start Last Admin Trade Name Gerardo PRN Reason Stop Dose Admin Albuterol Sulfate 2.5 mg 06/30/25 20:41 06/30/25 20:53 Albuterol Sulfate (0.083%) 2.5 Mg/3 Ml Vial.Neb INHALE 06/30/25 20:42 2.5 mg ONCE ONE Administration Sodium Chloride 1,000 mls @ 999 mls/hr 06/30/25 20:30 06/30/25 23:19 Ns IV 06/30/25 21:30 Infused .Q1H1M HALI Infusion Calcium Gluconate 1 gm in 50 mls @ 200 mls/hr 06/30/25 20:41 06/30/25 21:18 Calcium Gluconate IV 06/30/25 20:55 Infused ONCE ONE Infusion Sodium Chloride 1,000 mls @ 999 mls/hr 06/30/25 20:45 06/30/25 23:19 Ns IV 06/30/25 21:45 Infused .Q1H1M HALI Infusion Ceftriaxone Sodium 1 gm/ 50 mls @ 100 mls/hr 06/30/25 22:37 06/30/25 23:22 Sodium Chloride IV 06/30/25 23:06 Infused ONCE ONE Infusion Sodium Chloride 1,000 mls @ 999 mls/hr 06/30/25 22:45 06/30/25 23:08 Ns IV 06/30/25 23:45 999 mls/hr .Q1H1M HALI Administration Insulin Human Regular 10 unit 06/30/25 20:41 06/30/25 20:56 Insulin Regular, Human 100 Unit/Ml 10 Ml Vial IVPUSH 06/30/25 20:42 10 unit ONCE ONE Administration Iohexol 100 ml 06/30/25 20:42 06/30/25 20:42 Iohexol 350 Mg/Ml 100 Ml Infus..Btl IV 06/30/25 20:43 80 ml ONCE ONE Administration Medical Decision Making Medical Decision Making MDM Narrative: 8:32 PM 06/30/2025 (Jerrod LEES): The patient is a 54-year-old female who lives alone, was found on her bathroom floor by a neighbor who heard her yelling for help and EMS was activated. Patient last recalls making a cup of coffee around 04:00 this morning, then has no further memory until realizing she was on the floor and calling for help. Estimates the fall occurred greater than 12 hours prior to ED arrival. She complains of pain ?everywhere,? a headache, and inability to move the left arm. She reports not being able to move the left arm due to difficulty making the movement, not just pain. She reports feeling markedly weak for several months, describing it as ?like I have no bones.? She denies alcohol or drug use. Smokes approximately one pack every 3-4 days. Recently completed a course of amoxicillin for a facial skin infection; no current antibiotics. No known history of seizures. On aspirin howver no other anticoagulant use reported. On exam the patient is noted to have severe weakness of the left upper extremity with asymmetric grasp strength and minimal effort against gravity with the left upper extremity. There was also contusion noted to the superior aspect of the left shoulder. Distal CSM is intact. Both hands are cool to touch but 2+ radial pulses bilaterally. The patient is also noted to have markedly dry mucosa. The patient's NIH stroke scale is 4, mostly secondary to left upper extremity deficits, neuro exam also demonstrates mild dysarthria however it is unclear if this is secondary to neurologic process versus severe dry mouth and edentulous status without her dentures. Per EMS the patient was found lying on her left side, on her left upper extremity, unclear if left upper extremity deficit is secondary to neurologic process versus Wednesday night palsy. Stroke protocol activated upon assessment due to left upper extremity deficits, however the patient is outside tPA window. 8:47 PM 06/30/2025 (Jerrod LEES): Patient's laboratory evaluation has begun resulting, patient noted to be hyperkalemic at 5.7, EKG reviewed shows mild peaking of T-waves, patient administered calcium gluconate, insulin, however we will hold dextrose as patient's blood sugars currently elevated at 408. Additionally patient will receive albuterol. Patient is also mildlyhyponatremic at 133, and CK is 4100. The patient's troponin is negative, remainder of laboratory workup is largely reassuring, mild leukocytosis of 13.3, no significant anemia, Creatinine 0.93 BUN 24, consistent with prerenal azotemia. The patient's CO2 is 27, anion gap is 14, despite hyperglycemia there is no concern for DKA at this time. The patient will receive 2 L of crystalloid for dehydration, elevated CK, and hyponatremia, and we will await CT results. 9:25 PM 06/30/2025 (Jerrod LEES): Patient's CT head and CTA head and neck demonstrates no evidence of acute intracranial pathology. CTA shows patent bilateral carotid and vertebral arteries, no evidence of intracranial large vessel occlusion. We will await CT chest interpretation and plan for admission for hyperkalemia, hyponatremia, rhabdomyolysis and left upper extremity weakness/neuropathy. 10:34 PM 06/30/2025 (Jerrod LEES): The patient is CT chest shows no evidence of acute traumatic injury. Patient's urinalysis and shoulder x-ray are pending. The patient's blood pressure has decreased, and patient has become slightly more tachycardic with IV fluid hydration. The patient's tachycardia was initially thought to be secondary to dehydration, patient initially had no infectious source of pathology. The patient remains afebrile, however given the patient's worsening tachycardia and blood pressure despite IV fluid hydration, we will initiate sepsis protocol, we will send blood cultures and lactic acid, provide prophylactic antibiotics, and additional IVF to complete 30cc/kg bolus, and await urinalysis. 10:51 PM 06/30/2025 (Jerrod LEES): The patient states she had no urge to urinate, a bladder scan was performed just now and shows 1600 cc of urine in the bladder, patient will have a Hickman catheter placed for decompression of the bladder. 12:21 AM 07/01/2025 (Jerord LEES): Patient's x-ray has been completed, upon this provider's interpretation there was no evidence of dislocation, separation, or acute fracture. Upon reassessment the patient's left upper extremity weakness is markedly improving, patient subjectively reports persistent but improved weakness, now has equal clinical trials assistant strength and is able to resist gravity, palsy appears to be improving. Admission/Observation Consideration of admission/observation: Escalation of care including admission/observation considered Lab Data MDM Lab Attestation statement: I reviewed the patient's lab results. 06/30/25 20:04 06/30/25 20:04 Labs: Lab Results 06/30/25 06/30/25 06/30/25 Range/Units 19:41 20:04 20:19 WBC 13.3 H (4.8-10.8) X10*3/uL RBC 4.59 D (4.20-5.50) X10*6/uL Hgb 11.9 L (12.0-16.0) g/dl Hct 37.4 (37.0-47.0) % MCV 81.5 (80.0-98.0) fL MCH 25.9 L (27.0-33.0) pg MCHC 31.8 (31.0-35.0) g/dl RDW 14.7 (11.0-16.0) % Plt Count 257 (160-400) X10*3/uL MPV 10.4 (9.4-12.3) fL Immature Gran % (Auto) 0.4 (0.0-0.4) % Neut % (Auto) 84.5 H (45-73) % Lymph % (Auto) 9.7 L (20-40) % [place] % (Auto) 3.8 (2-11) % Eos % (Auto) 1.4 (0-4) % Baso % (Auto) 0.2 (0-2) % Lymph # (Auto) 1.3 (1.2-4.9) X10*3/uL [place] # (Auto) 0.5 (0.1-1.2) X10*3/uL Eos # (Auto) 0.2 (0.0-0.4) X10*3/uL Baso # (Auto) 0.0 (0.0-0.2) X10*3/uL Abs Immat Gran (auto) 0.05 H (0.00-0.03) X10*3/uL Absolute Neuts (auto) 11.3 H (2.0-8.3) x10*3/uL Absolute Nucleated RBC 0.000 (0.0-0.012) X10*3/uL Nucleated RBC % (auto) 0.0 (0.0-0.2) /100WBC PT 11.1 L (11.2-13.5) SEC Whole Blood PT 11.2 (11.1-13.5) sec INR 0.9 (0.9-1.1) Whole Blood INR 0.9 (0.9-1.1) Sodium 133 L (135-145) mmol/L Potassium 5.7 H D (3.3-5.1) mmol/L Chloride 98 (96-108) mmol/L Carbon Dioxide 27 (22-29) mmol/L Anion Gap 14 (12-20) BUN 24 H (9-16) mg/dL Creatinine 0.93 (0.5-1.4) mg/dL Estim Creat Clear Calc 74.1 Estimated GFR > 60 POC Glucose 407 H* (60-115) mg/dL Random Glucose 408 H* (60-115) mg/dL Lactic Acid (0.5-2.0) mmol/L Calcium 9.6 D (8.4-10.2) mg/dL Magnesium 1.5 L (1.6-2.6) mg/dL Total Bilirubin 0.5 (0.0-1.0) mg/dL AST 75 H (5-31) U/L ALT 23 (0-31) U/L Alkaline Phosphatase 137 H (39-117) U/L Total Creatine Kinase 4171 H (26-140) U/L Troponin I High Sens 4.1 D (<3.5-17.0) ng/L Total Protein 7.7 (6.5-8.0) g/dL Albumin 4.3 (3.5-5.0) g/dL Lipase 48 (8-78) U/L Urine Color Urine Appearance Urine pH (5.0-9.0) Ur Specific [place] (1.005-1.025) Urine Protein (Neg-Trace) mg/dL Urine Glucose (UA) (Negative) mg/dL Urine Ketones (Negative) mg/dL Urine Blood (Negative) Urine Nitrite (Negative) Ur Leukocyte Esterase (Negative) Urine RBC (0-2) /HPF Urine WBC (0-5) /HPF Ur Squamous Epith Cells (0-2) /HPF Urine Bacteria (None Seen) Hyaline Casts (0-2) /LPF Urine Opiates Screen (Not Detect) Ur Buprenorphine Scrn (Not Detect) ng/mL Ur Oxycodone Screen (Not Detect) ng/mL Urine Methadone Screen (Not Detect) ng/mL Urine Fentanyl Screen (Not Detect) Ur Barbiturates Screen (Not Detect) Ur Phencyclidine Scrn (Not Detect) Ur Amphetamines Screen (Not Detect) U Benzodiazepines Scrn (Not Detect) Urine Cocaine Screen (Not Detect) U Marijuana (THC) Screen (Not Detect) 06/30/25 06/30/25 06/30/25 Range/Units 21:22 21:48 22:25 WBC (4.8-10.8) X10*3/uL RBC (4.20-5.50) X10*6/uL Hgb (12.0-16.0) g/dl Hct (37.0-47.0) % MCV (80.0-98.0) fL MCH (27.0-33.0) pg MCHC (31.0-35.0) g/dl RDW (11.0-16.0) % Plt Count (160-400) X10*3/uL MPV (9.4-12.3) fL Immature Gran % (Auto) (0.0-0.4) % Neut % (Auto) (45-73) % Lymph % (Auto) (20-40) % [place] % (Auto) (2-11) % Eos % (Auto) (0-4) % Baso % (Auto) (0-2) % Lymph # (Auto) (1.2-4.9) X10*3/uL [place] # (Auto) (0.1-1.2) X10*3/uL Eos # (Auto) (0.0-0.4) X10*3/uL Baso # (Auto) (0.0-0.2) X10*3/uL Abs Immat Gran (auto) (0.00-0.03) X10*3/uL Absolute Neuts (auto) (2.0-8.3) x10*3/uL Absolute Nucleated RBC (0.0-0.012) X10*3/uL Nucleated RBC % (auto) (0.0-0.2) /100WBC PT (11.2-13.5) SEC Whole Blood PT (11.1-13.5) sec INR (0.9-1.1) Whole Blood INR (0.9-1.1) Sodium (135-145) mmol/L Potassium (3.3-5.1) mmol/L Chloride (96-108) mmol/L Carbon Dioxide (22-29) mmol/L Anion Gap (12-20) BUN (9-16) mg/dL Creatinine (0.5-1.4) mg/dL Estim Creat Clear Calc Estimated GFR POC Glucose 305 H 285 H 253 H (60-115) mg/dL Random Glucose (60-115) mg/dL Lactic Acid (0.5-2.0) mmol/L Calcium (8.4-10.2) mg/dL Magnesium (1.6-2.6) mg/dL Total Bilirubin (0.0-1.0) mg/dL AST (5-31) U/L ALT (0-31) U/L Alkaline Phosphatase (39-117) U/L Total Creatine Kinase (26-140) U/L Troponin I High Sens (<3.5-17.0) ng/L Total Protein (6.5-8.0) g/dL Albumin (3.5-5.0) g/dL Lipase (8-78) U/L Urine Color Urine Appearance Urine pH (5.0-9.0) Ur Specific [place] (1.005-1.025) Urine Protein (Neg-Trace) mg/dL Urine Glucose (UA) (Negative) mg/dL Urine Ketones (Negative) mg/dL Urine Blood (Negative) Urine Nitrite (Negative) Ur Leukocyte Esterase (Negative) Urine RBC (0-2) /HPF Urine WBC (0-5) /HPF Ur Squamous Epith Cells (0-2) /HPF Urine Bacteria (None Seen) Hyaline Casts (0-2) /LPF Urine Opiates Screen (Not Detect) Ur Buprenorphine Scrn (Not Detect) ng/mL Ur Oxycodone Screen (Not Detect) ng/mL Urine Methadone Screen (Not Detect) ng/mL Urine Fentanyl Screen (Not Detect) Ur Barbiturates Screen (Not Detect) Ur Phencyclidine Scrn (Not Detect) Ur Amphetamines Screen (Not Detect) U Benzodiazepines Scrn (Not Detect) Urine Cocaine Screen (Not Detect) U Marijuana (THC) Screen (Not Detect) 06/30/25 06/30/25 Range/Units 22:45 23:09 WBC (4.8-10.8) X10*3/uL RBC (4.20-5.50) X10*6/uL Hgb (12.0-16.0) g/dl Hct (37.0-47.0) % MCV (80.0-98.0) fL MCH (27.0-33.0) pg MCHC (31.0-35.0) g/dl RDW (11.0-16.0) % Plt Count (160-400) X10*3/uL MPV (9.4-12.3) fL Immature Gran % (Auto) (0.0-0.4) % Neut % (Auto) (45-73) % Lymph % (Auto) (20-40) % [place] % (Auto) (2-11) % Eos % (Auto) (0-4) % Baso % (Auto) (0-2) % Lymph # (Auto) (1.2-4.9) X10*3/uL [place] # (Auto) (0.1-1.2) X10*3/uL Eos # (Auto) (0.0-0.4) X10*3/uL Baso # (Auto) (0.0-0.2) X10*3/uL Abs Immat Gran (auto) (0.00-0.03) X10*3/uL Absolute Neuts (auto) (2.0-8.3) x10*3/uL Absolute Nucleated RBC (0.0-0.012) X10*3/uL Nucleated RBC % (auto) (0.0-0.2) /100WBC PT (11.2-13.5) SEC Whole Blood PT (11.1-13.5) sec INR (0.9-1.1) Whole Blood INR (0.9-1.1) Sodium (135-145) mmol/L Potassium (3.3-5.1) mmol/L Chloride (96-108) mmol/L Carbon Dioxide (22-29) mmol/L Anion Gap (12-20) BUN (9-16) mg/dL Creatinine (0.5-1.4) mg/dL Estim Creat Clear Calc Estimated GFR POC Glucose (60-115) mg/dL Random Glucose (60-115) mg/dL Lactic Acid 2.4 H* (0.5-2.0) mmol/L Calcium (8.4-10.2) mg/dL Magnesium (1.6-2.6) mg/dL Total Bilirubin (0.0-1.0) mg/dL AST (5-31) U/L ALT (0-31) U/L Alkaline Phosphatase (39-117) U/L Total Creatine Kinase (26-140) U/L Troponin I High Sens (<3.5-17.0) ng/L Total Protein (6.5-8.0) g/dL Albumin (3.5-5.0) g/dL Lipase (8-78) U/L Urine Color Yellow Urine Appearance Clear Urine pH 5.0 (5.0-9.0) Ur Specific [place] 1.020 (1.005-1.025) Urine Protein Trace (Neg-Trace) mg/dL Urine Glucose (UA) >=1000 H (Negative) mg/dL Urine Ketones Negative (Negative) mg/dL Urine Blood Moderate (2+) H (Negative) Urine Nitrite Negative (Negative) Ur Leukocyte Esterase Negative (Negative) Urine RBC 0-2 (0-2) /HPF Urine WBC 0-5 (0-5) /HPF Ur Squamous Epith Cells 0-2 (0-2) /HPF Urine Bacteria None Seen (None Seen) Hyaline Casts 3-5 (0-2) /LPF Urine Opiates Screen Not Detected (Not Detect) Ur Buprenorphine Scrn Not Detected (Not Detect) ng/mL Ur Oxycodone Screen Not Detected (Not Detect) ng/mL Urine Methadone Screen Not Detected (Not Detect) ng/mL Urine Fentanyl Screen Not Detected (Not Detect) Ur Barbiturates Screen Not Detected (Not Detect) Ur Phencyclidine Scrn Not Detected (Not Detect) Ur Amphetamines Screen Not Detected (Not Detect) U Benzodiazepines Scrn Not Detected (Not Detect) Urine Cocaine Screen POSITIVE H (Not Detect) U Marijuana (THC) Screen Not Detected (Not Detect) Independent Interpretation I performed an independent interpretation of an: EKG (EKG shows sinus tachycardia with a rate of 102, no evidence of ischemia, no ST elevation, no ectopy. QTC 432. T-waves are minimally peaked. Compared to previous on 03/13/2025 there are no significant morphology changes. ) Radiology Impression Discussion of test interpretation with radiology: I have reviewed the radiologist's reading. Radiologist Impression: CLINICAL HISTORY: Syncope; Headache; LUE Weakness CT angiography head and neck with contrast. 3D Postprocessing. Comparison: CT head 06/30/2025 Findings: Aortic arch and cervical great vessels are patent with no aneurysm, dissection, hemodynamically significant stenoses, or occlusion. Intracranial arteries are patent. No aneurysm, dissection, hemodynamically significant stenoses, or occlusion. No abnormal intracranial enhancement. The visualized thyroid gland is unremarkable. No cervical mass or fluid collection. Lung apices clear. No acute fracture. IMPRESSION: 1. No evidence of intracranial large vessel occlusion. 2. Patent bilateral carotid and vertebral arteries. 3. Additional chronic/nonacute findings as above. This document has been electronically signed by: Surya Erickson MD on 06/30/2025 21:14:58 CLINICAL HISTORY: fall CT head without contrast Comparison: CT head 03/13/2025 Findings: No intra-axial mass, midline shift, hydrocephalus, or acute hemorrhage. No significant atrophy-like change or white matter disease. There is no sinus or mastoid fluid. The orbits are within normal limits. No skull fracture. IMPRESSION: 1. No acute intracranial findings. If there is high clinical degree of suspicion for acute infarct, consider MRI with diffusion imaging for further evaluation. 2. Additional findings as above. This document has been electronically signed by: Surya Erickson MD on 06/30/2025 20:48:38 CT chest with contrast Comparison: Prior chest radiographs most recently on 03/13/2025 Findings: The heart is normal size. The visualized thyroid and mediastinum are unremarkable. No dense focal airspace consolidation. There are scattered bilateral pulmonary nodules up to 3 mm in size. Suggestion of mild COPD/emphysema background. The visualized upper abdomen is unremarkable. No acute fractures. IMPRESSION: 1. Scattered small 2-3 mm nodules throughout both lungs mainly in upper to midlung distribution. These favored to be infectious/inflammatory in etiology however overall indeterminate. Consider follow-up with CT in 2-3 months to assess for stability /resolution. 2. Otherwise, there is no acute cardiopulmonary abnormality identified. This document has been electronically signed by: Surya Erickson MD on 06/30/2025 21:28:43 Discharge Plan Discharge Clinical Impression: Acute hyperkalemia, Dehydration with hyponatremia, Hyperglycemia, Acute urinary retention, Cocaine abuse Fall Qualifiers: Encounter type: initial encounter Qualified Code(s): W19.XXXA - Unspecified fall, initial encounter Rhabdomyolysis Qualifiers: Rhabdomyolysis type: non-traumatic Qualified Code(s): M62.82 - Rhabdomyolysis Sepsis Qualifiers: Sepsis type: sepsis due to unspecified organism Sepsis acute organ dysfunction status: without acute organ dysfunction Qualified Code(s): A41.9 - Sepsis, unspecified organism Patient Disposition: Admitted As Inpatient Print Language: Azeri
[2025-06-30 20:26] LABS: Alanine Aminotransferase 23 U/L (0-31); Albumin Level 4.3 g/dL (3.5-5.0); Alkaline Phosphatase 137 U/L (39-117); Anion Gap 14 (12-20); Aspartate Amino Transferase 75 U/L (5-31); Blood Urea Nitrogen 24 mg/dL (9-16); Calcium 9.6 mg/dL (8.4-10.2); Carbon Dioxide 27 mmol/L (22-29); Chloride 98 mmol/L (96-108); Creatinine Clr Calc Pharmacy 74.1; Estimated Glomerular Filt Rate > 60; Lipase 48 U/L (8-78); Magnesium 1.5 mg/dL (1.6-2.6); Potassium 5.7 mmol/L (3.3-5.1); Sodium 133 mmol/L (135-145); Total Protein 7.7 g/dL (6.5-8.0)
[2025-06-30 20:30] LABS: Troponin-I High Sensitivity 4.1 ng/L (<3.5-17.0)
--- NOTE | 2025-06-30 20:35 | PC.NURSE ---
pt back from ct at this time, monica
[2025-06-30] MEDS: iohexoL 350 MG/ML 100 ML INFUS..BTL IV (20:42)
[2025-06-30] MEDS: Albuterol Sulfate (0.083%) 2.5 MG/3 ML VIAL.NEB INHALE (20:53)
[2025-06-30] MEDS: Calcium Gluconate/NaCl,Iso-Osm 1 GM/50 ML PLAST..BAG IV (20:57)
--- NOTE | 2025-06-30 21:03 | PC.NURSE ---
RT at bedside administering duoneb, pt medicated per mar with iv insulin and fluids adminstering
[2025-06-30 21:26] LABS: Glucose, Whole Blood 305 mg/dL (60-115)
[2025-06-30 21:53] LABS: Glucose, Whole Blood 285 mg/dL (60-115)
--- NOTE | 2025-06-30 21:55 | PC.NURSE ---
per NABEEL Daniel. c collar cleared at this time
[2025-06-30 22:35] LABS: Glucose, Whole Blood 253 mg/dL (60-115)
--- OUTSIDE RECORDS SUMMARY | 2025-06-30 22:43 | XMS_ITS | Encounter Summary ---
Author Organization [employer] Address [address] [place] [address] [address] [place] [address] Care Team Providers Care Kindergarten Instructional Assistant Name Role Phone Brenda Tovar MD Primary Care Provide r Eugene Jarvis Unavailable Unavailable Reason for Visit * Reason Comments Med Refill Encounter Details Date Type Department Care Team ([facility] st Contact Info) Description 04/17/[address] [facility] [address] [place], [place] [phone] Dragan Stoner FNP Constipation, unspecified constipation type [...] documented as of this encounter Care Teams Kindergarten Instructional Assistant Relationship Specialty Start Date End Date Brenda Tovar MD 230 [place] [address] PCP - General Family Medicine 02/16/19 Eugene Jarvis FNP 230 [facility] [place] [address] Nurse Practitioner Family Medicine 06/21/23 Elzbieta JACOBO 03/18/25 04/25/25 documented as of this encounter
--- OUTSIDE RECORDS SUMMARY | 2025-06-30 22:43 | XMS_ITS | Encounter Summary ---
Author Organization [employer] Address [address] [facility] 7 [place] [address] Care Team Providers Care Family Engagement Specialist Name Role Phone Brenda Tovar MD Primary Care Provide r Eugene Jarvis Unavailable Unavailable Reason for Visit * Reason Comments Med Refill Encounter Details Date Type Department Care Team ([facility] st Contact Info) Description 08/24/2023 Refill [facility] [address] [place] [address] Brenda Tovar MD 230 [place] [address] Social History Tobacco Use Types Packs/Day Years [...] documented as of this encounter Care Teams Family Engagement Specialist Relationship Specialty Start Date End Date Brenda Tovar MD 230 [place] [address] PCP - General Family Medicine 02/16/19 Eugene Jarvis FNP 230 [place] [address] Nurse Practitioner Family Medicine 06/21/23 [place] [facility] 03/18/25 04/25/25 documented as of this encounter
--- OUTSIDE RECORDS SUMMARY | 2025-06-30 22:43 | XMS_ITS | Encounter Summary ---
Author Organization [employer] Address [address] [facility] 7t [place] [address] Care Team Providers Care Sofa Cover Inspector Name Role Phone Brenda Tovar MD Primary Care Provide r Eugene Jarvis Unavailable Unavailable Reason for Visit * Reason Comments Med Refill Encounter Details Date Type Department Care Team ([facility] st Contact Info) Description 10/05/2023 Refill [facility] 230 [place] [address] Eugene Jarvis FNP Severe recurrent major depression [...] documented as of this encounter Care Teams Sofa Cover Inspector Relationship Specialty Start Date End Date Brenda Tovar MD 230 [place] [address] PCP - General Family Medicine 02/16/19 Eugene Jarvis FNP 230 [place] [address] Nurse Practitioner Family Medicine 06/21/23 Elzbieta Melo 03/18/25 04/25/25 documented as of this encounter
--- OUTSIDE RECORDS SUMMARY | 2025-06-30 22:43 | XMS_ITS | Encounter Summary ---
Author Organization [employer] Address [address] [place] [address] 7 [place] [address] Care Team Providers Care Molding Fitter Name Role Phone Brenda Tovar MD Primary Care Provide r Eugene Jarvis Unavailable Unavailable Reason for Visit * Reason Onset Date Comments Hospital Follow-up 12/01/2024 Encounter Details Date Type Department Care Team (Late st Contact Info) Description 12/01/2024 Telephone [facility] MEDICINE 230 [place], [place] [phone] Brenda Tovar MD 230 [place], [place] [phone] Hospital Follow-up Social History Tobacco Use Types [...] with others, in a hotel, in a usp, living outside on the street, on a [...] she will like to f/u with PCP [phone] * Telephone Encounter - Janet Fang - 12/01/2024 9:50 AM EDT Tc from pt requesting a HDF appt. Hospital: [facility] Date of admission: 11/13 Discharge date: 11/15 Diagnosed: - Mouth swelling - JOE (acute kidney injury) - hyperglycemia - Hyperlipidemia *Send message to [facility] Clinical Care Coordinators documented in this encounter Plan of Treatment Not on file documented as of this encounter Visit Diagnoses Not on filedocumented in this encounter Additional Health Concerns Assessment Noted Time PHQ-9 Depression Total Score: 0 03/03/20 24 11:00 AM EDT documented as of this encounter Care Teams Molding Fitter Relationship Specialty Start Date End Date Brenda Tovar MD 230 [place] [address] PCP - General Family Medicine 02/16/19 Eugene Jarvis FNP [address] [place] [address] Nurse Practitioner Family Medicine 06/21/23 [facility] 04/25/25 documented as of this encounter
--- OUTSIDE RECORDS SUMMARY | 2025-06-30 22:43 | XMS_ITS | Encounter Summary ---
Author Organization [employer] Address [address] [facility] 7 [place] [address] Care Team Providers Care Gas Or Water Meter Installer Name Role Phone Brenda Tovar MD Primary Care Provide r Eugene Jarvis Unavailable Unavailable Reason for Visit * Reason Comments Med Refill Encounter Details Date Type Department Care Team ([facility] st Contact Info) Description 05/19/2024 Refill [facility] 230 [place], [place] [phone] Mary Clemente MD 230 [place] [address] Moderate persistent asthma without complication Social History [...] with others, in a hotel, in a fpc, living outside on the street, on a [...] documented as of this encounter Care Teams Gas Or Water Meter Installer Relationship Specialty Start Date End Date Brenda Tovar MD 230 [place] [address] PCP - General Family Medicine 02/16/19 Eugene Jarvis FNP 230 [place] [address] Nurse Practitioner Family Medicine 06/21/23 [place] [facility] 03/18/25 04/25/25 documented as of this encounter
--- OUTSIDE RECORDS SUMMARY | 2025-06-30 22:43 | XMS_ITS | Clinical Summary ---
Author Organization [id number] Address [address] [facility] 7t [place] [address] Care Team Providers Care Dock Worker Name Role Phone Brenda Tovar MD [...] Active Continuous Glucose Sensor (Dexcom G7 Sensor) [facility] USE TO MONITOR BLOOD GLUCOSE CONTINUOUSLY, CHANGE EVERY 10 DAYS, E11.65 Active Gvoke HypoPen 2-Pack 0.5 MG/0.1ML injection TO BE INJECTED BY CAREGIVER SUBCUTANEOUSLY IF PT IS UNCONSCIOUS DUE TO LOW BLOOD SUGAR. SEEK MEDICAL CARE. IF PATIENT DOES NOT RESPOND IN 15 MINUTES REPEAT DOSE. Active betamethasone, augmented, (Diprolene) 0.05 % ointmentIndicat ions:Psoriasifo rm dermatitis Apply topically 2 times daily. Not more than 4 weeks 45 g 1 024 Active Ventolin HFA 108 (90 Base) [...] 2 times daily. Active Easy Touch Pen [place] 31G X 8 MM misc USE DIRECTED TO INJECT INSULIN FOUR TIMES DAILY Active Tresiba FlexTouch 200 UNIT/ML injection INJECT 30 UNITS SUBCUTANEOUS INJECTION DAILY. E11.9 Active fluticasone-chula meterol (AirDuo RespiClick) 232-14 MCG/ACT inhaler INHALE 1 PUFF BY MOUTH TWICE DAILY RINSE MOUTH AFTER USING. Active Pain Reliever Plus 250-250-65 MG tabletIndicatio ns:Chronic migraine with aura without status migrainosus, not intractable TAKE 1 TABLET BY MOUTH EVERY TWELVE HOURS NEEDED FOR HEADACHE FOR UP TO 15 DAYS 30 tablet Active atorvastatin (Lipitor) 80 MG tabletIndicatio ns:Hypertension , unspecified type TAKE 1 TABLET BY MOUTH EVERY MORNING 90 tablet 1 025 Active Austedo 6 MG tablet Take 6 mg by mouth 2 times daily. Active doxepin (SINEquan) 50 MG capsule Take 50 mg by mouth at bedtime. Active Embecta Insulin Syr Ultrafine 31G X 5/16 0.5 ML misc For use with vial during pump failure Active QUEtiapine (SEROquel) 300 MG tablet Take 300 mg by mouth at bedtime. Active cetirizine (ZyrTEC) 10 MG tablet TAKE 1 TABLET BY MOUTH EVERY MORNING 90 tablet 3 06/18/20 25 11:03 AM EST Active Multiple Vitamins-Minera ls (CertaVite/Anti oxidants) tablet TAKE 1 TABLET BY MOUTH EVERY MORNING WITH FOOD 90 tablet 3 Active Aspirin Low Dose 81 MG EC tabletIndicatio ns:Primary hypertension TAKE 1 TABLET BY MOUTH EVERY MORNING 90 tablet 3 Active fluticasone (Flonase) 50 MCG/ACT nasal spray INSTILL 2 SPRAYS IN EACH NOSTRIL ONCE DAILY 16 g 11 06/18/20 25 11:03 AM EST Active rOPINIRole (Requip) 0.25 MG tabletIndicatio ns:Restless leg syndrome TAKE 1 TABLET BY MOUTH AT BEDTIME 90 tablet Active Mounjaro 7.5 MG/0.5ML solution auto-injectorIn dications:Type 2 diabetes mellitus with hyperglycemia, with long-term current use of insulin (HCC) INJECT ONE PEN (=7.5MG) SUBCUTANEOUSLY ONCE A WEEK DIRECTED 2 mL 1 06/18/20 11:03 AM EST Active buPROPion SR (Wellbutrin SR) 100 MG 12 hr tabletIndicatio ns:Mood disorder (CMS/HCC) TAKE 1 TABLET BY MOUTH EVERY MORNING 90 tablet 06/18/20 25 11:03 AM EST Active gabapentin (Neurontin) 800 MG tabletIndicatio ns:Hypertension , unspecified type TAKE 1 TABLET BY MOUTH THREE TIMES DAILY IN THE MORNING, EVENING, AND BEDTIME 90 tablet 06/18/20 25 11:03 AM EST 025 Active buPROPion SR (Wellbutrin SR) 100 MG 12 hr tabletIndicatio ns:Mood disorder (CMS/HCC) TAKE 1 TABLET BY MOUTH EVERY MORNING 90 tablet 2024 Discontinued Mounjaro 7.5 MG/0.5ML solution auto-injectorIn dications:Type 2 diabetes mellitus with hyperglycemia, with long-term current use of insulin ([facility]) INJECT ONE PEN (=7.5MG) SUBCUTANEOUSLY ONCE A WEEK DIRECTED 2 mL 1 025 2024 Discontinued gabapentin (Neurontin) 800 MG tabletIndicatio ns:Hypertension , unspecified type TAKE 1 TABLET BY MOUTH THREE TIMES DAILY IN THE MORNING, EVENING, AND BEDTIME 90 tablet 025 2024 Discontinued Active Problems Problem Noted Date Diagnosed Date H/O: substance abuse ([facility]) 04/09/2025 Assessment & Plan (04/09/2025 1:43 PM [...] Assessment & Plan (02/26/2023 1:28 PM EDT): middle school counselor about increase fiber and water on her diet GI referral Unstable gait 02/26/2023 Assessment & Plan (02/26/2023 11:15 AM EDT): Rolator walker will be prescribed for patient Tardive dyskinesia 02/08/2023 Assessment & Plan (06/21/2023 10:39 AM EST): Symptoms have improved somewhat, ?r/t discontinuation of Benztropine? F/U with Neurologist at [facility] as scheduled. Do not F/U with Neurologist at [place]. ED as needed. Assessment & Plan (05/27/2023 2:47 PM EDT): Unfortunately seems to be progressing. Pt understands the etiology of this, and the probability that it will be chronic. Per [facility], advised to avoid anticholinergics. She will stop Benztropine 2 mg BID. F/U with Neurologist at [facility] as scheduled. Do not F/U with Neurologist at [place]. ED as needed. 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 She agrees with the [...] She has started with therapist at [facility], and they are awaiting copies of medical [...] reviewed). She will F/U ROXANA with [facility] for counseling and med mgt. F/U with Neurologist at [facility] per PCP. Also discussed option of seeking care at [facility] ED if movement disorder is intolerable. [...] medications. She has been referred to [facility] for counseling and med mgt, and has been given their phone number to call and request expedited appointment. She will also F/U with Neurologist at [facility] per PCP. Also discussed option of seeking care at [facility] ED if movement disorder is intolerable. [...] medications. She has been referred to [facility] for counseling and med mgt, and has been given their phone number to call and request expedited appointment. She will also F/U with Neurologist at [facility] per PCP. Also discussed option of seeking care at [facility] ED if movement disorder is intolerable. [...] medications. She has been referred to [facility] for counseling and med mgt, and has been given their phone number to call and request expedited appointment. She will also F/U with Neurologist at [facility] per PCP. Also discussed option of seeking care at [facility] ED if movement disorder is intolerable. [...] mother. PLAN: 1. Follow up with [facility]: Not recommended for follow-up 2. Patient goal [...] Requesting therapist support and referral to outpatient [facility] for counseling and med mgt. Could [...] no med changes, but we will request [facility] clinician outreach. F/u with me [...] Encounters Date Type Department Care Team Description 06/13/2025 Patient Outreach [facility] [address] [place] [address] Brenda Tovar MD Transition Of Care (Tcm) (F unscheduled) 06/13/2025 Refill [facility] [address] [place] [address] Brenda Tovar MD Mood disorder ([facility]); Hypertension, unspecified type 06/08/2025 Patient Outreach [facility] [address] [place] [address] Brenda Tovar MD Transition Of Care (Tcm) (HDF unscheduled) 06/06/2025 Refill [facility] [address] [place] [address] Brenda Tovar MD Type 2 diabetes mellitus with hyperglycemia, with long-term current use of insulin ([facility]) 05/16/2025 Refill [facility] [address] [place] [address] Brenda Tovar MD Restless leg syndrome; Hypertension, unspecified type 05/12/2025 Refill [facility] [address] [place] [address] Yudelka Chavez DO 05/09/2025 Refill [facility] [address] [place] [address] Brenda Tovar MD Primary hypertension 04/25/2025 Telephone [facility] [address] [place] [address] Brenda Tovar MD telephone call 04/25/2025 Refill [facility] [address] [place] [address] Brenda Tovar MD Type 2 diabetes mellitus with hyperglycemia, with long-term current use of insulin ([facility]) 04/19/2025 Refill [facility] [address] [place] [address] Brenda Tovar MD Hypertension, unspecified type 04/09/2025 1:00 PM EDT Office Visit [facility] [address] [place] [address] Brenda Tovar MD H/O: substance abuse (CMS/HCC) (Primary Dx); Non-traumatic rhabdomyolysis; JOE (acute kidney injury) (CMS/[facility]); Type 2 diabetes mellitus with hyperglycemia, with long-term current use of insulin ([facility]); C. difficile diarrhea; Irritable bowel syndrome with both constipation and diarrhea; Dry skin dermatitis; Dysphagia, unspecified type 04/09/2025 Telephone [facility] [address] [place] [address] Brenda Tovar MD NTTS f/u 04/09/2025 Travel 04/09/2025 Refill [facility] [address] [place] [address] Brenda Tovar MD 04/08/2025 Refill [facility] [address] [place] [address] Yudelka Chavez DO from Last 3 Months Immunizations Immunization Administration [...] with others, in a hotel, in a mcc, living outside on the street, on a [...] Pap Smear 1989 HPV/Cotest 1998 Mammogram 2008 RSV Patients and Patients Aged 60 years or older (1 - Risk 50-74 years 1-dose series) 2018 SDOH Screening 12/09/2024 12/10/2023 Depression Screening 03/03/2025 03/03/2024, 03/03/20 24 COVID-19 Vaccine ( season) 2025 04/28/2024, 06/14/2023, 04/27/2022, Additional history exists Influenza Vaccine (#1) 2025 , 06/14/2023, 04/23/2022, Additional history exists Diabetes: Urine Protein Screening 03/28/2025 03/28/2024, 12/08/2022, 02/15/2020 Lipid Panel 03/28/2025 03/28/2024, 11/23, 05/22/2021, Additional history exists Diabetes: Hemoglobin A1C 07/09/2025 025, 11/15/2024, 11/13/2024, Additional history exists Tobacco Screening 04/09/2026 04/09/2025 Eye Exam 08/04/2026 08/04/2024, 07/26, 08/04/2024, Additional history exists DTaP/Tdap/Td Vaccines (2 - Td or Tdap) 06/25/2032 06/25/2022 Hepatitis C Screening Completed 09/26/2019 Zoster Vaccines Completed 06/25/2022, 04/23/2022 Pneumococcal Vaccine: 50+ Years Completed 03/03/2024 Cervical Cancer Screening Discontinued HIB Vaccines Aged [...] on patient's age to complete this topic Goals Goal Patient Goal Type Associated Problems Recent Progress Patient-Stated? Author Help patients manage their type 2 diabetes Care Plan Help patients manage their type 2 diabetes Candice Nair Weekly blood pressure task Care Plan Weekly blood pressure task No Candice Serna Help patients manage their type 2 diabetes Care Plan Help patients manage their type 2 diabetes No Candice Serna Patient has chronic kidney disease Care Plan Patient has chronic kidney disease No Candice Serna Weekly blood pressure task Care Plan Weekly blood pressure task No Candice Serna Patient has chronic kidney disease Care Plan Patient has chronic kidney disease No Candice Serna Weekly blood pressure task Care Plan Weekly blood pressure task No Candice Serna Weekly blood pressure task Care Plan Weekly blood pressure task No Candice Serna Patient has chronic kidney disease Care Plan Patient has chronic kidney disease No Candice Serna Patient has chronic kidney disease Care Plan Patient has chronic kidney disease No Candice Serna Procedures Procedure Name Priority Date/Time Associated Diagnosis Comments POCT GLYCATED HEMOGLOBIN, TOTAL Routine 04/09/2025 1:26 PM EDT Type 2 diabetes mellitus with hyperglycemia, with long-term current use of insulin ([facility]) POCT GLUCOSE Routine 04/09/2025 1:26 PM EDT Type 2 diabetes mellitus with hyperglycemia, with long-term current use of insulin (CMS/[facility]) ALBUMIN, RANDOM URINE W/CREATININE Routine 03/28/2024 11:30 AM EDT Type 2 diabetes mellitus with hyperglycemia, with long-term current use of insulin (CMS/[facility]) LIPID PANEL WITH REFLEX TO DIRECT LDL Routine 03/28/2024 11:11 AM EDT Type 2 diabetes mellitus with hyperglycemia, with long-term current use of insulin ([facility]) ZZZ HISTORICAL HEPATITIS A,B,C PROFILE Routine 09/26/2019 9:47 AM EST from Last 3 Months or Most Recently Relevant to Health Maintenance Results * (ABNORMAL) POCT Hgb A1c (04/09/2025 1:26 PM EDT) Hemoglobin A1C 10.4(A) 4.0 - 5.7 % QC Media Lot # [id number] Lot# Expiration Date [id number] Blood 04/09/2025 1:26 PM EDT us Brenda Ojeda MD POINT OF CARE TEST EN TER/EDIT ORDERABLES Final Result * POCT Glucose (04/09/2025 1:26 PM EDT) Glucose Blood, POC 182 60 - 200 mg/dL QC Media Lot # [id number] Lot# Expiration Date 113,025 Blood Capillary blood specimen / Unknown 04/09/2025 1:26 PM EDT us Brenda Ojeda MD POINT OF CARE TEST EN TER/EDIT ORDERABLES Final Result * (ABNORMAL) Albumin, Random Urine W/Creatinine (03/28/2024 11:30 AM EDT) Creatinine, Urine 28.16 mg/dL [facility] Microalbumin Urine 29.0 mg/L H [facility] Microalbum Creatinine Ratio Ur 102.9(H) <30 ug/mg cr [facility] Comment:Albumin/Creatinine R atio Reference Ranges: Normal: < 30 ug/mg creatinine Microalbuminuria: 30 - 300 ug/mg creatinineClinical Albuminuria: > 300 ug/mg creatinine Urine (Urine, Random) 03/28/2024 11:30 AM EDT 03/28/2024 1:10 PM EDT Result Ellie Ojeda MD LAB URINE ORDERABLES Final Result [facility] [address] [place] [address] [phone] * (ABNORMAL) Lipid Panel with Reflex to Direct LDL (03/28/2024 11:11 AM EDT) Triglycerides 254(H) <150 mg/dL [facility] Comment:Desirable Triglyceri de: less than 150 mg/dLBorderline High Triglyceride 150-199 mg/dLHigh Triglyceride: 200-499 mg/dLVery High Triglyceride: greater than or equal to 5OO mg/dL Cholesterol 168 <200 mg/dL [facility] Comment:Desirable Cholestero l: less than 200 mg/dLBorderline High Cholesterol: 200-239 mg/dLHigh Cholesterol: greater than 239 mg/dL LDL Cholesterol Calculated 68 <100 mg/dL [facility] Comment:Desirable LDL: less than 100 mg/dLNear Optimal/Above Optimal LDL: 110- 129 mg/dLBorderline High LDL: 130-159 mg/dLHigh LDL: 160-189 mg/dLVery High LDL: greater than or equal to 190 mg/dL HDL Cholesterol 50 >40 mg/dL [facility] Comment:Desirable HDL: great er than 40 mg/dL Note: This HDL assay may give artificially low results in patients with liver disease. Blood 03/28/2024 11:1 1 AM EDT 03/28/2024 1:28 PM EDT Brenda Ojeda MD LAB BLOOD ORDERABLES Final Result [facility] [address] [place] [phone] * HEPATITIS A,B,C PROFILE (09/26/2019 9:47 [...] Historical Provider HISTORICAL/NON ORDERABLE LABS Final Result [facility] [address] from Last 3 Months or Most Recently Relevant to Health Maintenance Additional Health Concerns Active Problems Noted Date Diagnosed Date Help patients manage their type 2 diabetes 06/08 Weekly blood pressure task 06/08/2025 Help patients manage their type 2 diabetes 06/08 Patient has chronic kidney disease 06/08/2025 Weekly blood pressure task 06/08/2025 Patient has chronic kidney disease 06/08/2025 Weekly blood pressure task 06/13/2025 Weekly blood pressure task 06/13/2025 Patient has chronic kidney disease 06/13/2025 Patient has chronic kidney disease 06/13/2025 Insurance [facility] < [address] [id number] [facility] Care Teams Dock Worker Relationship Specialty Start Date End Date Brenda Tovar MD [address] [place] [address] PCP - General Family Medicine 02/16/19 Eugene Jarvis FNP [address] [place] [address] Nurse Practitioner Family Medicine 06/21/23
--- OUTSIDE RECORDS SUMMARY | 2025-06-30 22:43 | XMS_ITS | Encounter Summary ---
Author Organization [employer] Address [address] [place] [address] 7 [place] [address] Care Team Providers Care Satellite Instruction Facilitator Name Role Phone Brenda Tovar MD Primary Care Provide r Eugene Jarvis Unavailable Unavailable Reason for Visit * Reason Comments Med Refill Encounter Details Date Type Department Care Team ([facility] st Contact Info) Description 02/08/2025 Refill [facility] MED[facility] [address] [place], [place] [phone] Brenda Tovar MD [address] [place] [address] Hypertension, unspecified type Social History Tobacco Use [...] with others, in a hotel, in a retirement, living outside on the street, on a [...] documented as of this encounter Care Teams Satellite Instruction Facilitator Relationship Specialty Start Date End Date Brenda Tovar MD [address] [place] [address] PCP - General Family Medicine 02/16/19 Eugene Jarvis FNP [address] [place] [address] Nurse Practitioner Family Medicine [facility] 04/25/25 documented as of this encounter
--- OUTSIDE RECORDS SUMMARY | 2025-06-30 22:43 | XMS_ITS | Encounter Summary ---
Author Organization [employer] Address [address] [facility] [address] 7 [place] [address] Care Team Providers Care Dope Dry House Operator Name Role Phone Brenda Tovar MD Primary Care Provide r Eugene Jarvis Unavailable Unavailable Reason for Visit * Reason Comments Med Refill Encounter Details Date Type Department Care Team ([facility] st Contact Info) Description 03/13/2024 Refill [facility] [address] [place], [place] [phone] Brenda Tovar MD [address] [place] [address] Moderate persistent asthma without complication Social History [...] documented as of this encounter Care Teams Dope Dry House Operator Relationship Specialty Start Date End Date Brenda Tovar MD [address] [place] [address] PCP - General Family Medicine 02/16/19 Eugene Jarvis FNP [address] [place] [address] Nurse Practitioner Family Medicine 06[facility] 04/25/25 documented as of this encounter
--- OUTSIDE RECORDS SUMMARY | 2025-06-30 22:43 | XMS_ITS | Encounter Summary ---
Author Organization [employer] Address [address] [place] [address] Care Team Providers Care Children'S Ministry Director Name Role Phone Brenda Tovar MD Primary Care Provide r Eugene Jarvis Unavailable Unavailable Encounter Details Date Type Department Care Team (Late st Contact Info) Description 02/06/2025 Telephone [facility] [address] [place], [place] [phone] Brenda Tovar MD [address] [place] [address] Social History Tobacco Use Types Packs/Day Years [...] documented as of this encounter Care Teams Children'S Ministry Director Relationship Specialty Start Date End Date Brenda Tovar MD [address] [place] [address] PCP - General Family Medicine 02/16/19 Eugene Jarvis FNP [address] [place] [address] Nurse Practitioner Family Medicine 06/21/23 [facility] 03/18/25 04/25/25 documented as of this encounter
--- OUTSIDE RECORDS SUMMARY | 2025-06-30 22:43 | XMS_ITS | Encounter Summary ---
Author Organization [employer] Address [address] [facility] 7t [place] [address] Care Team Providers Care Printer Maintainer Name Role Phone Brenda Tovar MD Primary Care Provide r Eugene Jarvis Unavailable Unavailable Encounter Details Date Type Department Care Team ([facility] st Contact Info) Description 01/18/2023 Telephone [facility] MED[facility]INE [address] [place], [place] [phone] Brenda Tovar MD [address] [place] [address] Social History Tobacco Use Types Packs/Day Years [...] documented as of this encounter Care Teams Printer Maintainer Relationship Specialty Start Date End Date Brenda Tovar MD [address] [place] [address] PCP - General Family Medicine 02/16/19 Eugnee Jarvis FNP [address] [place] [address] Nurse Practitioner Family Medicine 06/21/23 [facility] 03/18/25 04/25/25 documented as of this encounter
--- OUTSIDE RECORDS SUMMARY | 2025-06-30 22:43 | XMS_ITS | Encounter Summary ---
Author Organization [employer] Address [address] [facility] 7t [place] [address] Care Team Providers Care Cloth Painter Name Role Phone Brenda Tovar MD Primary Care Provide r Eugene Jarvis Unavailable Unavailable Reason for Visit * Reason Comments Med Refill Encounter Details Date Type Department Care Team ([facility] st Contact Info) Description 10/06/2023 Refill [facility] [address] [place] [address] Eugene Jarvis FNP Severe recurrent major depression [...] as of this encounter Care Teams Cloth Painter Relationship Specialty Start Date End Date Brenda Tovar MD [address] [place] [address] PCP - General Family Medicine 02/16/19 Eugene Jarvis FNP [address] [place] [address] Nurse Practitioner Family Medicine 06/21/23 [facility] 03/18/25 04/25/25 documented as of this encounter
--- OUTSIDE RECORDS SUMMARY | 2025-06-30 22:43 | XMS_ITS | Encounter Summary ---
Author Organization [employer] Address [address] [place] [address] 7 [place] [address] Care Team Providers Care Income Tax Analyst Name Role Phone Brenda Tovar MD Primary Care Provide r Eugene Jarvis Unavailable Unavailable Reason for Visit * Reason Comments Med Refill Encounter Details Date Type Department Care Team ([facility] st Contact Info) Description 01/29/2023 Refill [facility] MED[facility]INE [address] [place], [place] [phone] NameRivera MD [address] [place] [address] Hypertension, unspecified type Social History Tobacco Use [...] documented as of this encounter Care Teams Income Tax Analyst Relationship Specialty Start Date End Date Brenda Tovar MD [address] [place] [address] PCP - General Family Medicine 02/16/19 Eugene Jarvis FNP [address] [place] [address] Nurse Practitioner Family Medicine 06/21/23 [facility] 03/18/25 04/25/25 documented as of this encounter
[2025-06-30 23:22] LABS: Appearance Urine Clear; Glucose Urine UA >=1000 mg/dL (Negative); PH 5.0 (5.0-9.0); Specific Gravity - Urine 1.020 (1.005-1.025); UMIC TRIGGER UACC YES
--- NOTE | 2025-06-30 23:29 | PC.NURSE ---
pt noted to have no urinary output at this time, pt bladder scan 1660, NABEEL Daniel made aware. temp sensing moore placed and 1600ml yellow urine drained.
[2025-06-30 23:31] LABS: Cannabinoid Screen Urine Not Detected (Not Detect)
[2025-07-01] VITALS (13 sets, daily range): BP systolic 105–137; BP diastolic 60–70; PULSE 80–100; RESP 18–22; TEMP 36.1–37.7; O2SAT 92–100; BMI 32.2
--- NOTE | 2025-07-01 00:32 | PM.IMHP ---
History of Present Illness Date of Service: 07/01/25 Chief Complaint: fall 54-year-old female with a past medical history of HTN, HLD, arthritis, chronic back pain, diabetes, fibromyalgia, MALLIKA; presented to the hospital today with a chief complaint of fall. Patient reported that she woke up in the bathroom and called for help; subsequently her neighbor called the ambulance and brought her to the hospital for further evaluation. Reports that last thing she remembers was making coffee 16:00 the day before. Denies any chest pain or palpitations. Denies any nausea vomiting or diarrhea. Denies any fevers chills cough or sputum production. Denies any urinary symptoms. Denies any neck pain or back pain. Review of all other systems is negative except mentioned above ER course: Per ER team, patient on presentation noted to be normotensive, afebrile, appears clinically dehydrated; on exam noted to have left upper extremity weakness; has noted speech difficulty which gradually improved. Left upper extremity weakness has also gradually improved. CT head and CT C-spine showed no acute findings; CT angio head and neck showed no LVO. Patient qualified for sepsis. CT chest showed no evidence of pneumonia. Urinalysis negative. Given IV fluids. On labs noted to have potassium of 5.7; sodium 133. Mild hyperglycemia. Not in DKA or HHS. WBC slightly elevated. Given Rocephin. Also mentioned that patient has prior history of polysubstance use; U tox positive for cocaine. [facility] Medical History Lipoma of abdominal wall T2DM (type 2 diabetes mellitus) Arthritis of knee Restless leg syndrome Sleep apnea Gastritis High cholesterol Hypertension Fibromyalgia Arthritis Migraines Diabetes Asthma Family History Father No problems noted. Mother HTN (hypertension) Arthritis Diabetes Maternal Aunt Cancer of unknown origin Surgical History Hx of fusion of cervical spine Hx of breast biopsy Hx of arthroscopic knee surgery Hx of cholecystectomy History of esophagogastroduodenoscopy (EGD) History of carpal tunnel release Hx of hysterectomy Social History (Updated 03/13/25 @ 21:05 by [facility]) Household Members: Other Household Members Other:: patient does not have a permanent place to stay Housing: Other Housing Other:: patient stays with whoever she can. No stable housing Do you presently have visiting nurse or other home services: No Alcohol intake: never Patient Tobacco Use Status: Current everyday Tobacco user Tobacco use type: Cigarette Cigarettes Per Day: 10 Smoked in Last 30 Days: Yes e-Cigarette/Vaping Use: Currently Using Second Hand Smoke Exposure: No Use of substances other than those prescribed or required for medical reasons: No Substance Use Type: Crack/Cocaine Advance Directives: No Advance Directives Information Provided: No Do you have a plan to hurt others: No Plan Patient : No service: No Current occupational status: unemployed Current occupation: right handed Meds Allergies Allergy/AdvReac Type Severity Reaction Status Date / Time Penicillins (PENICILLINS) Allergy Intermediate HIVES Verified 06/30/25 19:53 ibuprofen Allergy Unknown unknown Verified 06/30/25 19:53 penicillin V Allergy Unknown Unknown Verified 06/30/25 19:53 NSAIDS (Non-Steroidal AdvReac Mild STOMACH Verified 06/30/25 19:53 Anti-Inflamma (NSAIDS UPSET (NON-STEROIDAL ANTI-INFLAMMA) Home Medications ?Medication ?Instructions ?Recorded ?Confirmed ?Last Taken ?Type aspirin 81 mg tablet,delayed 81 mg PO DAILY 06/10/20 03/13/25 03/13/25 History release blood-glucose meter #1 ea 06/10/20 09/21/24 Unknown History blood sugar diagnostic (FreeStyle #10 ea 12/16/20 09/21/24 Unknown History Lite Strips) lancets 28 gauge #100 ea 12/16/20 09/21/24 Unknown History pen needle, diabetic 31 gauge x #50 ea 12/16/20 09/21/24 Unknown History 10/08 albuterol sulfate 90 mcg/actuation 2 puff PO Q4H PRN Wheezing 11/01/21 03/13/25 Unknown History aerosol inhaler gabapentin 800 mg tablet 1 tab PO TID 11/01/21 03/13/25 03/13/25 History ropinirole 0.25 mg tablet 1 tab PO BEDTIME 11/01/21 03/13/25 03/12/25 History clonidine HCl 0.1 mg tablet 0.1 mg PO TID PRN Anxiety 04/21/22 03/13/25 Unknown History insulin pump cart,cont inf,BT #5 ea 07/06/23 09/21/24 Unknown History (Omnipod Dash Pods (Gen 4) subcutaneous cartridge) lancets 33 gauge (TRUEplus Lancets) #100 ea 07/06/23 09/21/24 Unknown History mirtazapine 30 mg tablet 30 mg PO BEDTIME 08/31/23 03/13/25 03/12/25 History quetiapine 300 mg tablet 600 mg PO BEDTIME 08/31/23 03/13/25 03/12/25 History atorvastatin 80 mg tablet 80 mg PO DAILY 09/21/24 03/13/25 03/13/25 History bupropion HCl 100 mg tablet,12 hr 100 mg PO DAILY 09/21/24 03/13/25 03/13/25 History sustained-release insulin degludec 100 unit/mL (3 30 unit subcut BEDTIME PRN IF 09/21/24 03/13/25 03/12/25 History mL) subcutaneous pen (Tresiba NEEDED FOR HYPERGLYCEMIA FlexTouch U-100 insulin) lisinopril 20 mg tablet 20 mg PO DAILY 09/21/24 03/13/25 03/13/25 History metformin 500 mg tablet,extended 1,000 mg PO BID 09/21/24 03/13/25 03/13/25 History release 24 hr fluticasone propionate 50 2 spray intranasal BID PRN 11/13/24 03/13/25 Unknown History mcg/actuation nasal Allergic Symptoms spray,suspension insulin aspart (niacinamide) See Rx Instructions .Route .COMPLEX 11/13/24 03/13/25 03/13/25 History (U-100) 100 unit/mL subcutaneous solution (Fiasp U-100 Insulin) omeprazole 20 mg capsule,delayed 20 mg PO DAILY@0630 11/13/24 03/13/25 03/13/25 History release clonazepam 1 mg tablet 1 mg PO TID PRN anxiety 03/13/25 03/13/25 Unknown History deutetrabenazine 6 mg tablet 6 mg PO BID 03/13/25 03/13/25 03/13/25 History (Austedo) doxepin 50 mg capsule 50 mg PO BEDTIME 03/13/25 03/13/25 03/12/25 History tirzepatide 7.5 mg/0.5 mL 7.5 mg subcut WE 03/13/25 03/13/25 03/07/25 History subcutaneous pen injector (Arturo) Physical Exam Vital Signs and Narrative: Vital Signs: Last Vital Signs Temp 99.0 F 06/30/25 23:08 Pulse 97 06/30/25 23:08 Resp 17 06/30/25 23:08 BP 116/95 H 06/30/25 23:37 Pulse Ox 100 06/30/25 23:08 O2 Del Method Room Air 06/30/25 23:08 BMI result Body Mass Index 30.2 Gen: Appears be in no acute distress HEENT: NCAT, Moist mucosa. Pulmonary: Vesicular breath sounds, fair air entry CVS: Normal S1-S2 Abdomen: BS+, Soft, Nontender Extremities: Warm well perfused Neuro: Alert and awake. Slight LUE weakness noted but significantly improving per patient. Sensations intact bilaterally. Speech improved. Results Labs 06/30/25 20:04 06/30/25 20:04 Labs: Laboratory Results - last 24 hr 06/30/25 06/30/25 06/30/25 19:41 20:04 20:19 MCV 81.5 MCH 25.9 L MCHC 31.8 RDW 14.7 Plt Count 257 MPV 10.4 Immature Gran % (Auto) 0.4 Neut % (Auto) 84.5 H Lymph % (Auto) 9.7 L Casey % (Auto) 3.8 Eos % (Auto) 1.4 Baso % (Auto) 0.2 Lymph # (Auto) 1.3 Casey # (Auto) 0.5 Eos # (Auto) 0.2 Baso # (Auto) 0.0 Abs Immat Gran (auto) 0.05 H Absolute Neuts (auto) 11.3 H Absolute Nucleated RBC 0.000 Nucleated RBC % (auto) 0.0 PT 11.1 L Whole Blood PT 11.2 INR 0.9 Whole Blood INR 0.9 Anion Gap 14 Estim Creat Clear Calc 74.1 Estimated GFR > 60 POC Glucose 407 H* Random Glucose 408 H* Lactic Acid Calcium 9.6 D Magnesium 1.5 L Total Bilirubin 0.5 AST 75 H ALT 23 Alkaline Phosphatase 137 H Total Creatine Kinase 4171 H Troponin I High Sens 4.1 D Total Protein 7.7 Albumin 4.3 Lipase 48 Urine Color Urine Appearance Urine pH Ur Specific [place] Urine Protein Urine Glucose (UA) Urine Ketones Urine Blood Urine Nitrite Ur Leukocyte Esterase Urine RBC Urine WBC Ur Squamous Epith Cells Urine Bacteria Hyaline Casts Urine Opiates Screen Ur Buprenorphine Scrn Ur Oxycodone Screen Urine Methadone Screen Urine Fentanyl Screen Ur Barbiturates Screen Ur Phencyclidine Scrn Ur Amphetamines Screen U Benzodiazepines Scrn Urine Cocaine Screen U Marijuana (THC) Screen 06/30/25 06/30/25 06/30/25 21:22 21:48 22:25 MCV MCH MCHC RDW Plt Count MPV Immature Gran % (Auto) Neut % (Auto) Lymph % (Auto) Casey % (Auto) Eos % (Auto) Baso % (Auto) Lymph # (Auto) Casey # (Auto) Eos # (Auto) Baso # (Auto) Abs Immat Gran (auto) Absolute Neuts (auto) Absolute Nucleated RBC Nucleated RBC % (auto) PT Whole Blood PT INR Whole Blood INR Anion Gap Estim Creat Clear Calc Estimated GFR POC Glucose 305 H 285 H 253 H Random Glucose Lactic Acid Calcium Magnesium Total Bilirubin AST ALT Alkaline Phosphatase Total Creatine Kinase Troponin I High Sens Total Protein Albumin Lipase Urine Color Urine Appearance Urine pH Ur Specific [place] Urine Protein Urine Glucose (UA) Urine Ketones Urine Blood Urine Nitrite Ur Leukocyte Esterase Urine RBC Urine WBC Ur Squamous Epith Cells Urine Bacteria Hyaline Casts Urine Opiates Screen Ur Buprenorphine Scrn Ur Oxycodone Screen Urine Methadone Screen Urine Fentanyl Screen Ur Barbiturates Screen Ur Phencyclidine Scrn Ur Amphetamines Screen U Benzodiazepines Scrn Urine Cocaine Screen U Marijuana (THC) Screen 06/30/25 06/30/25 22:45 23:09 MCV MCH MCHC RDW Plt Count MPV Immature Gran % (Auto) Neut % (Auto) Lymph % (Auto) Casey % (Auto) Eos % (Auto) Baso % (Auto) Lymph # (Auto) Casey # (Auto) Eos # (Auto) Baso # (Auto) Abs Immat Gran (auto) Absolute Neuts (auto) Absolute Nucleated RBC Nucleated RBC % (auto) PT Whole Blood PT INR Whole Blood INR Anion Gap Estim Creat Clear Calc Estimated GFR POC Glucose Random Glucose Lactic Acid 2.4 H* Calcium Magnesium Total Bilirubin AST ALT Alkaline Phosphatase Total Creatine Kinase Troponin I High Sens Total Protein Albumin Lipase Urine Color Yellow Urine Appearance Clear Urine pH 5.0 Ur Specific [place] 1.020 Urine Protein Trace Urine Glucose (UA) >=1000 H Urine Ketones Negative Urine Blood Moderate (2+) H Urine Nitrite Negative Ur Leukocyte Esterase Negative Urine RBC 0-2 Urine WBC 0-5 Ur Squamous Epith Cells 0-2 Urine Bacteria None Seen Hyaline Casts 3-5 Urine Opiates Screen Not Detected Ur Buprenorphine Scrn Not Detected Ur Oxycodone Screen Not Detected Urine Methadone Screen Not Detected Urine Fentanyl Screen Not Detected Ur Barbiturates Screen Not Detected Ur Phencyclidine Scrn Not Detected Ur Amphetamines Screen Not Detected U Benzodiazepines Scrn Not Detected Urine Cocaine Screen POSITIVE H U Marijuana (THC) Screen Not Detected Assessment and Plan (1) Cocaine abuse: Status: Acute Plan 54-year-old female with a past medical history of HTN, HLD, arthritis, chronic back pain, diabetes, fibromyalgia, MALLIKA; presented to the hospital today with a chief complaint of fall. Admitted for following Fall/syncope: Likely in the setting of cocaine use. Patient appeared clinically dehydrated. Gentle IV fluids No evidence of fracture on CT imaging PT/OT when ready for discharge Fall precautions LUE weakness: Likely in the setting of prolonged lying on the floor. NIH stroke scale was 4 in the ER. Patient out of the window for tPA. CT head showed no acute findings. CT angio head and neck showed no acute intracranial process. Left upper extremity weakness improving. Neurology consult Telemetry Echocardiogram PT/OT/SENIOR NET APPLICATION DEVELOPER eval MRI brain ? Sepsis: No clear signs of infection. Patient was given ceftriaxone, IV fluids. Follow fever curve. Will hold antibiotics for now. Diabetes: Insulin sliding scale plus Lantus Med reconsideration: Resume home medications once med to complete the pharmacy in a.m. DVT prophylaxis: Lovenox Code status: Full code Quality Stroke Does the patient have a stroke diagnosis?: No VTE Prior VTE?: No VTE Risk Level:: Medical - moderate - high VTE Device Contraindication: Treatment Not Indicated VTE Drug Contraindication: N/A - Med Ordered
[2025-07-01 00:55] LABS: Reflex Lactate? Lactic Acid Added
[2025-07-01 01:51] LABS: ~Lactic Acid-LAB USE ONLY 1.0 mmol/L (0.5-2.0)
[2025-07-01 05:55] LABS: MANUAL DIFF FLAG NO
[2025-07-01 05:57] LABS: Hematocrit 32.0 % (37.0-47.0); Hemoglobin 10.0 g/dl (12.0-16.0); Imm Gran Abs Auto 0.04 X10*3/uL (0.00-0.03); Imm Gran Pct Auto 0.5 % (0.0-0.4); Lymphocytes Absolute Auto 1.5 X10*3/uL (1.2-4.9); Mean Corpuscular HGB Conc 31.3 g/dl (31.0-35.0); Mean Corpuscular Hemoglobin 25.7 pg (27.0-33.0); Mean Corpuscular Volume 82.3 fL (80.0-98.0); NRBC Abs Auto 0.000 X10*3/uL (0.0-0.012); NRBC Pct Auto 0.0 /100WBC (0.0-0.2); Platelet Count 229 X10*3/uL (160-400); Red Blood Count 3.89 X10*6/uL (4.20-5.50); White Blood Count 7.4 X10*3/uL (4.8-10.8)
[2025-07-01 06:11] LABS: Anion Gap 14 (12-20); Blood Urea Nitrogen 14 mg/dL (9-16); Calcium 8.4 mg/dL (8.4-10.2); Carbon Dioxide 23 mmol/L (22-29); Chloride 105 mmol/L (96-108); Creatinine Clr Calc Pharmacy 104.5; Estimated Glomerular Filt Rate > 60; Potassium 5.1 mmol/L (3.3-5.1); Sodium 137 mmol/L (135-145)
[2025-07-01 07:47] LABS: Glucose, Whole Blood 278 mg/dL (60-115)
[2025-07-01] MEDS: 0.9 % Sodium Chloride Flush 3 ML SYRINGE IVFLUSH ×2 (09:18→22:04)
--- NOTE | 2025-07-01 09:27 | PC.NURSE ---
doesn't want breakfast, insulin held, alert, l hand weakness and r leg pins and needles, unchanged per pt, sr on monitor, mri screnning form done and faxed, pt was sleeping and easily woken, fully alert, c/o ful body pain
[2025-07-01] MEDS: Aspirin Enteric Coated 81 MG TABLET.DR PO (09:42)
--- NOTE | 2025-07-01 10:21 | PC.NURSE ---
nad, skin wpd, sleeping, sr on monitor, aware of care plan
--- NOTE | 2025-07-01 11:53 | HO.NURTONUR ---
Pt was BIBA after being found on floor and neighbors heard her calling. Pt was amnestic to events prior to the fall. Pt found to have L arm weakness, and R leg weakness. Pt also noted to be hyperkalemic and tx'd w/ Ca++gluconate. This am pt is A&O x4 and is being admitted for new found weakness. Pt is slotted for MRI. Screening form is done.
--- NOTE | 2025-07-01 12:21 | PM.EVENT ---
Event Note Date of Service: 07/01/25 Event Note: Pt seen and examined, labs, meds and imaging reviewed--med rec not yet completed. Pt fell, unclear circumstance, and reportedly weakness in arm , low mag, high sugars, positive cocaine use, my neuro exam non focal. an MRI is requested, waiting on pharmacy to complete med rec. repeat mag. PT eval, o/w A/P per H and pf from today Time Spent With Patient Time: Total time managing care of this patient today ____ minutes.
[2025-07-01 12:53] LABS: Magnesium 1.3 mg/dL (1.6-2.6)
[2025-07-01] MEDS: Magnesium Sulfate/H2O 2 GM/50 ML PIGGYBACK IV (13:53)
[2025-07-01 14:03] LABS: Glucose, Whole Blood 250 mg/dL (60-115)
--- NOTE | 2025-07-01 14:32 | PM.NEUROCN ---
History of Present Illness Data of Consult Service Date: 07/01/25 Primary Care Provider: Brenda Ojeda MD HPI Reason for consult: Syncope 54 years old woman with cocaine abuse and diagnosis of fibromyalgia was brought to hospital after she was found unresponsive at home. She said that she had no recollection of what happened. She was complaining of left arm or leg weakness since this happened. There was no witness convulsion or incontinence. Reviewing her laboratories, she had been positive for cocaine this time and some other previous times. Otherwise brain imaging did not reveal any acute or significant chronic abnormality. Laboratories did not reveal any obvious infection. Chest x-ray revealed some infectious/inflammatory process. Review of Systems Review of Systems: Constitutional: No recent cold or flu-like illness Cardiovascular: No chest pain or palpitation Respiratory: No shortness of breath GI: No nausea vomiting or diarrhea Skin: No recent rash Psychiatric: No significant symptoms offered Neurological: Complain of something happening to her and not remembering Musculoskeletal: Diagnosis of fibromyalgia HEENT: Negative [facility] Past Medical History Medical History Lipoma of abdominal wall T2DM (type 2 diabetes mellitus) Arthritis of knee Restless leg syndrome Sleep apnea Gastritis High cholesterol Hypertension Fibromyalgia Arthritis Migraines Diabetes Asthma Family History Family History Father No problems noted. Mother HTN (hypertension) Arthritis Diabetes Maternal Aunt Cancer of unknown origin Surgical History Surgical History Hx of fusion of cervical spine Hx of breast biopsy Hx of arthroscopic knee surgery Hx of cholecystectomy History of esophagogastroduodenoscopy (EGD) History of carpal tunnel release Hx of hysterectomy Social History Social History (Updated 03/13/25 @ 21:05 by BILLY Estrada) Household Members: Other Household Members Other:: patient does not have a permanent place to stay Housing: House Housing Other:: patient stays with whoever she can. No stable housing Do you presently have visiting nurse or other home services: No Alcohol intake: never Patient Tobacco Use Status: Current someday Tobacco user Tobacco use type: Cigarette Cigarettes Per Day: 10 e-Cigarette/Vaping Use: Currently Using Second Hand Smoke Exposure: No Substance Use Type: Crack/Cocaine service: No Current occupational status: unemployed Current occupation: right handed Meds Allergies Allergy/AdvReac Type Severity Reaction Status Date / Time Penicillins (PENICILLINS) Allergy Intermediate HIVES Verified 06/30/25 19:53 ibuprofen Allergy Unknown unknown Verified 06/30/25 19:53 penicillin V Allergy Unknown Unknown Verified 06/30/25 19:53 NSAIDS (Non-Steroidal AdvReac Mild STOMACH Verified 06/30/25 19:53 Anti-Inflamma (NSAIDS UPSET (NON-STEROIDAL ANTI-INFLAMMA) Active Medications: Current Medications Acetaminophen (Acetaminophen 325 Mg Tablet) 650 mg PO Q6H PRN PRN Reason: Pain, Mild 1-3,fever,headache Aspirin (Aspirin Enteric Coated 81 Mg Tablet.Dr) 81 mg PO DAILY [facility] Last Admin: 07/01/25 09:42 Dose: 81 mg Atorvastatin Calcium (Atorvastatin Calcium 80 Mg Tablet) 80 mg PO DAILY [facility] Last Admin: 07/01/25 09:42 Dose: 80 mg Calcium Carbonate (Calcium Carbonate 750 Mg Tab.Chew) 750 mg PO Q4H PRN PRN Reason: Heartburn Dextrose (Dextrose 50 % 25 Gm/50 Ml Syringe) 25 gm IVPUSH Q15M PRN; Protocol PRN Reason: per Hypoglycemia Standing Ord. Enoxaparin Sodium (Enoxaparin Sodium 40 Mg/0.4 Ml Syringe) 40 mg SUBCUT Q24H [facility] Last Admin: 07/01/25 09:42 Dose: 40 mg Glucose (Glucose Gel 15 Gm Gel..Gram.) 15 gm PO Q15M PRN; Protocol PRN Reason: per Hypoglycemia Standing Ord. Magnesium Sulfate (Magnesium Sulfate/H2o) 2 gm in 50 mls @ 25 mls/hr IV ONCE ONE Stop: 07/01/25 15:20 Last Admin: 07/01/25 13:53 Dose: 25 mls/hr Insulin Glargine (Insulin Glargine,Hum.Rec.Anlog 100 Unit/Ml 10 Ml Vial) 10 unit SUBCUT BEDTIME [facility] Insulin Human Lispro (Insulin Lispro 100 Unit/Ml 3 Ml Vial) 0 unit SUBCUT QIDACHS [facility]; Protocol Last Admin: 07/01/25 14:28 Dose: 4 unit Magnesium Hydroxide (Milk Of Magnesia 30 Ml Oral.Susp) 30 ml PO DAILY PRN PRN Reason: Constipation Magnesium Oxide (Magnesium Oxide 400 Mg Tablet) 400 mg PO BIDPC [facility] Last Admin: 07/01/25 13:53 Dose: 400 mg Melatonin (Melatonin 3 Mg Tablet) 6 mg PO BEDTIME PRN PRN Reason: Insomnia Sodium Chloride (0.9 % Sodium Chloride Flush 3 Ml Syringe) 3 ml IVFLUSH QSHIFT [facility] Last Admin: 07/01/25 09:18 Dose: 3 ml Home Medications ?Medication ?Instructions ?Recorded ?Confirmed ?Last Taken ?Type aspirin 81 mg tablet,delayed 81 mg PO DAILY 06/10/20 03/13/25 03/13/25 History release blood-glucose meter #1 ea 06/10/20 09/21/24 Unknown History blood sugar diagnostic (FreeStyle #10 ea 12/16/20 09/21/24 Unknown History Lite Strips) lancets 28 gauge #100 ea 12/16/20 09/21/24 Unknown History pen needle, diabetic 31 gauge x #50 ea 12/16/20 09/21/24 Unknown History 10/08 albuterol sulfate 90 mcg/actuation 2 puff PO Q4H PRN Wheezing 11/01/21 03/13/25 Unknown History aerosol inhaler gabapentin 800 mg tablet 1 tab PO TID 11/01/21 03/13/25 03/13/25 History ropinirole 0.25 mg tablet 1 tab PO BEDTIME 11/01/21 03/13/25 03/12/25 History clonidine HCl 0.1 mg tablet 0.1 mg PO TID PRN Anxiety 04/21/22 03/13/25 Unknown History insulin pump cart,cont inf,BT #5 ea 07/06/23 09/21/24 Unknown History (Omnipod Dash Pods (Gen 4) subcutaneous cartridge) lancets 33 gauge (TRUEplus Lancets) #100 ea 07/06/23 09/21/24 Unknown History mirtazapine 30 mg tablet 30 mg PO BEDTIME 08/31/23 03/13/25 03/12/25 History quetiapine 300 mg tablet 600 mg PO BEDTIME 08/31/23 03/13/25 03/12/25 History atorvastatin 80 mg tablet 80 mg PO DAILY 09/21/24 03/13/25 03/13/25 History bupropion HCl 100 mg tablet,12 hr 100 mg PO DAILY 09/21/24 03/13/25 03/13/25 History sustained-release insulin degludec 100 unit/mL (3 30 unit subcut BEDTIME PRN IF 09/21/24 03/13/25 03/12/25 History mL) subcutaneous pen (Tresiba NEEDED FOR HYPERGLYCEMIA FlexTouch U-100 insulin) lisinopril 20 mg tablet 20 mg PO DAILY 09/21/24 03/13/25 03/13/25 History metformin 500 mg tablet,extended 1,000 mg PO BID 09/21/24 03/13/25 03/13/25 History release 24 hr fluticasone propionate 50 2 spray intranasal BID PRN 11/13/24 03/13/25 Unknown History mcg/actuation nasal Allergic Symptoms spray,suspension insulin aspart (niacinamide) See Rx Instructions .Route .COMPLEX 11/13/24 03/13/25 03/13/25 History (U-100) 100 unit/mL subcutaneous solution (Fiasp U-100 Insulin) omeprazole 20 mg capsule,delayed 20 mg PO DAILY@0630 11/13/24 03/13/25 03/13/25 History release clonazepam 1 mg tablet 1 mg PO TID PRN anxiety 03/13/25 03/13/25 Unknown History deutetrabenazine 6 mg tablet 6 mg PO BID 03/13/25 03/13/25 03/13/25 History (Austedo) doxepin 50 mg capsule 50 mg PO BEDTIME 03/13/25 03/13/25 03/12/25 History tirzepatide 7.5 mg/0.5 mL 7.5 mg subcut WE 03/13/25 03/13/25 03/07/25 History subcutaneous pen injector (Mounjaro) cetirizine 10 mg tablet 10 mg PO QAM 07/01/25 Unknown History Physical Exam Vital Signs: Vital Signs: Last Vital Signs Temp 97.5 F 07/01/25 13:55 Pulse 94 07/01/25 13:55 Resp 18 07/01/25 13:55 BP 131/60 07/01/25 13:55 Pulse Ox 96 07/01/25 13:55 O2 Del Method Room Air 07/01/25 13:55 BMI result Body Mass Index 32.2 Neuro: Other: Mental Status: she is alert and awake with normal spontaneity of speech fluency comprehension and affect. He did not have any memory of what had happened. She was not in any distress. Cranial Nerves: CN II: Visual tran full to confrontation, visual acuity intact. CN III, IV, : Pupils equal, round, reactive to light and accommodation. Extraocular movements are normal. CN V: Facial sensation is normal. CN VII: Facial movements symmetrical. CN VIII: Hearing intact to bedside conversation is normal. CN IX, X: Palate elevates symmetrically. CN XI: Shoulder shrug and head turn symmetrical. CN XII: Tongue midline without atrophy or fasciculations. Motor: Mild left arm or leg weakness. Reflexes: Deep tendon reflexes are absent with flexor plant Coordination: [id number] Is okay. Extrapyramidal: Full facial expressions and blinking. No rigidity. Movements are appropriate with no tremor or abnormality. Speech: Normal; no dysarthria or tremor. Results Labs 07/01/25 05:23 07/01/25 05:23 Labs: Short CBC 06/30/25 07/01/25 Range/Units 20:04 05:23 WBC 13.3 H 7.4 (4.8-10.8) X10*3/uL Hgb 11.9 L 10.0 L (12.0-16.0) g/dl Hct 37.4 32.0 L (37.0-47.0) % Plt Count 257 229 (160-400) X10*3/uL BMP 06/30/25 07/01/25 20:04 05:23 Sodium 133 L 137 Potassium 5.7 H D 5.1 Chloride 98 105 Carbon Dioxide 27 23 BUN 24 H 14 Creatinine 0.93 0.66 Calcium 9.6 D 8.4 D Cardiac Enzymes 06/30/25 Range/Units 20:04 Total Creatine Kinase 4171 H (26-140) U/L Liver Function 06/30/25 Range/Units 20:04 Total Bilirubin 0.5 (0.0-1.0) mg/dL AST 75 H (5-31) U/L ALT 23 (0-31) U/L Alkaline Phosphatase 137 H (39-117) U/L Albumin 4.3 (3.5-5.0) g/dL Urine 06/30/25 Range/Units 23:09 Urine Color Yellow Urine Appearance Clear Urine pH 5.0 (5.0-9.0) Ur Specific [place] 1.020 (1.005-1.025) Urine Protein Trace (Neg-Trace) mg/dL Urine Glucose (UA) >=1000 H (Negative) mg/dL CT head without contrast Comparison: CT head 03/13/2025 Findings: No intra-axial mass, midline shift, hydrocephalus, or acute hemorrhage. No significant atrophy-like change or white matter disease. There is no sinus or mastoid fluid. The orbits are within normal limits. No skull fracture. IMPRESSION: 1. No acute intracranial findings. If there is high clinical degree of suspicion for acute infarct, consider MRI with diffusion imaging for further evaluation. 2. Additional findings as above. MRI of brain did not reveal any obvious acute abnormality. Assessment and Plan (1) Syncope and collapse: Status: Acute 54 years old woman with diagnosis of fibromyalgia and history of cocaine use came to hospital after she was found unresponsive at home. Etiology was unclear and it might just be related to cocaine use. If possible, my recommendation is to obtain an EEG, which can be done as an outpatient to rule out seizure disorder. she should be advised to stopped using cocaine and also not drive falling state of [place] laws at this time. Procedures Date of Service Date of Service: 07/01/25
--- NOTE | 2025-07-01 15:48 | PHA.MEDREC ---
Pharmacy Consult ? Medication Reconciliation Pharmacy has completed the medication reconciliation.Med rec complete, patient uses a v-go insulin pump with fiasp insulin
[2025-07-01 16:19] LABS: Glucose, Whole Blood 235 mg/dL (60-115)
[2025-07-01 19:41] LABS: Glucose, Whole Blood 237 mg/dL (60-115)
[2025-07-01] MEDS: Insulin Glargine,Hum.rec.anlog 100 UNIT/ML 10 ML VIAL 10 UNIT SUBCUT (22:03)
[2025-07-02] VITALS (8 sets, daily range): BP systolic 118–173; BP diastolic 57–72; PULSE 81–88; RESP 16–19; TEMP 36.2–36.7; O2SAT 92–97
--- NOTE | 2025-07-02 | EEG_ITS ---
History: H/O Lipoma of abdominal wall, T2DM (type 2 diabetes mellitus),Arthritis of knee, Restless leg syndrome, Sleep apnea, Gastritis, High cholesterol,Hypertension,Fibromyalgia,Arthritis,Migraines Diabetes,Asthma admitted after being found on her bathroom floor and unable to recall events- no witness of events- pt c/o headache and unable to move left arm- pt arrived 12 hours post fall - pt was positive for cocaine during admission- MRI of brain on 07/01/25 showed no acute findings. Specifically, no foci of restricted diffusion to indicate acute or subacute infarct. Medication Acetaminophen,Albuterol, asa, Atorvastatin Calcium,Bupropion HCl, Calcium Carbonate, Clonazepam, Doxepin HCl, Enoxaparin Sodium, Fluticasone Propionate, Fluticasone/Vilanterol, Insulin, Lisinopril, Loratadine, Magnesium Hydroxid, Magnesium Oxide, Melatonin, Mirtazapine Multivitamins/Vitamin, Omeprazole, Quetiapine Fumarate, Ropinirole HCl Technical Description Photic Stimulation: completed Hyperventilation: omitted- asthma Behavioral State: cooperative State of Consciousness: awake and asleep Skull Defect: no Sedation: no Handedness: Right : Duration: 29 mins 25 secs Last Meal: 07/03/25 Time / date of last symptom: 06/30/25 Description: This is a 16 channel EEG with an EKG lead. Patient is reported awake and sleep during the tracing. Background EEG rhythm is 6-8 hertz 5-100 microvolt posteriorly and somewhat lower amplitude fast anteriorly. Photic stimulation does not produce any significant driving. Hyperventilation is not performed. Cardiac lead does not reveal any significant abnormality. No sharp wave spikes or paroxysmal tendency or asymmetry noted. Impression: Generalized slowing with no evidence of seizure disorder. MTDD
[2025-07-02 02:32] LABS: Glucose, Whole Blood 242 mg/dL (60-115)
--- NOTE | 2025-07-02 07:00 | CA_ITS ---
Transthoracic Echocardiogram Patient (Last, First, Middle): Jeny Vides E Gender: F Date of : 1970 Age: 54 Procedure Date: 07/02/2025 Procedure Type: Transthoracic Echocardiogram Location: [facility] Height: 167.64 cm Weight: 90.27 kg BSA: 2.00 m2 Heart Rate: 83 bpm BP: 161 / 70 mmHg Professional Soccer Player: BARRINGTON Rios MD: Gus Purcell MD Fabric Designer: Kameron Centeno MD Symptoms: cva Study Quality: Adequate ECG Rhythm: Sinus Conclusions: - Essentially normal study Findings Left Ventricle Normal left ventricular size, thickness, and systolic function. The visually estimated ejection fraction is between 60-65%. Spectral Doppler is indicative of a normal filling pattern. Right Ventricle Normal right ventricular cavity size and systolic function. Atria Both atria are normal in size. There is lipomatous hypertrophy of the interatrial septum. There is no evidence of interatrial shunt by agitated saline. Aortic Valve Normal aortic valve structure and function. There is no aortic valve stenosis. There is no aortic valve regurgitation. Mitral Valve Normal mitral valve structure and function. There is trace mitral valve regurgitation. There is no mitral valve stenosis. Pulmonic Valve The pulmonic valve is likely normal. Tricuspid Valve Likely normal tricuspid valve structure and function. Tricuspid regurgitation envelope is inadequate for calculation of right ventricular systolic pressure. Normal right atrial pressure. Great Vessels All visible segments of the aorta are normal in size. The pulmonary artery was not well visualized. Venous The inferior vena cava is normal in size and collapses greater than 50% with inspiration. Pericardium/Pleural There is no evidence of pericardial effusion. Prior Study Comparison No significant change compared to prior study dated: 06/01/2024. Recommendations, Care & Conclusions Consider a JESSA if clinically appropriate. Measurements 2D Linear Measurements IVSd: 1.03 0.6-0.9/0.6-1.0 cm LVIDd: 4.32 3.9-5.3/4.2-5.9 cm LVIDd Index: 2.16 2.4-3.2/2.2-3.1 cm/m2 LVIDs: 2.40 2.0-3.6 cm LVPWd: 0.98 0.7-1.1 cm LA Diam: 3.10 2.7-3.8/3.0-4.0 cm LAIDs Index: 1.55 1.5-2.3 cm/m2 LV Mass: 179.56 67-162/88-224 g LV Mass Index: 89.78 43-95/49-115 g/m2 LVOT Diam: 2.00 3.0+(-)1.3 cm 2D Systolic Function EF 4C: 56.20 >55% EF 2C: 66.90 >55% EF BiP: 62.40 >55% Mitral Valve MV Pk E: 0.90 MV PK A: 0.77 MV Decel Time: 180.00 E/A: 1.20 E'Lateral: 9.36 E'Medial: 6.85 E/E' Med: 13.10 E/E' Lat: 9.60 PHT: 53.00 MVA PHT: 4.15 Decel Atkinson: 4.97 Aortic Valve AoV Pk Emeka: 1.51 AoV Mn Emeka: 1.03 AoV VTI: 0.30 AoV Pk Grad: 9.00 Aov Mn Grad: 5.00 MAKEDA Cont.VTI: 2.16 LVOT LVOT Pk Emeka: 1.09 LVOT Mn Emeka: 0.74 LVOT VTI: 0.21 LVOT Pk Grad: 5.00 LVOT Mn Grad: 3.00 LVOT Diam: 2.00 LVOT Area: 3.14 Diastolic Function MV Pk E: 0.90 MV Pk A: 0.77 E/A: 1.20 E'Medial: 6.85 E/E' Med: 13.10 E' Laterial: 9.36 E/E' Lat: 9.60 Right Ventricle TAPSE (mm): 22.20 TVS' Emeka: 12.40 Tricuspid Valve RA Press: 3.00 Great Vessels Aorta Sinus of Valsalva: 3.00 2.0-3.5 cm Ao Asc: 3.30 2.1-3.4 cm Ao Arch: 2.70 Pulmonary Veins Pulm Vein S/D 1.20 Pulmonary Valve PV Pk Emeka: 1.60 Peak PV Grad: 10.00 Updated in Other Vendor System with Status of Final Kameron Centeno MD electronically signed on 07/02/2025 3:15:04 PM with status of Final
[2025-07-02 07:29] LABS: Glucose, Whole Blood 251 mg/dL (60-115)
[2025-07-02 07:47] LABS: Cholesterol 182 mg/dL (<200); HDL Cholesterol 32 mg/dL (>40); Triglycerides 319 mg/dL (<150)
[2025-07-02] MEDS: Aspirin Enteric Coated 81 MG TABLET.DR PO (08:48)
[2025-07-02] MEDS: 0.9 % Sodium Chloride Flush 3 ML SYRINGE IVFLUSH ×2 (08:53→20:45)
[2025-07-02] MEDS: buPROPion HCl XL 150 MG TAB.ER.24H PO (09:30)
--- NOTE | 2025-07-02 10:44 | MHC.RECOVRN ---
T/W met with pt. in 445-1 following consult received for StUD. Pt sitting up in bed A&0. OPERATIONS MANAGER ASSISTANT was present for beginning of visit and pt. agreed we could talk freely in front of her. I discussed the results of tox screen with her and she denies any cocaine use. She denied any need for education/support from ACS. We also discussed her diabetes. She agrees that it is uncontrolled and agrees that because she was without halfway it made it very difficult for her to manage it. She does now have permanent halfway. We discussed how hypo and hyper glycemia can cause medical emergencies and how managing her diabetes may decrease her medical issues. She has appt's scheduled with PCP and endo coming up. Pt encouraged to F/U and request assist from OPERATIONS MANAGER ASSISTANT with remembering her BS regimen. Pt declined need for further assist from ACS. ACS available PRN. Report given to Case Management.
--- NOTE | 2025-07-02 10:57 | PC.NURSE ---
moore cath removed for voiding trial at 1045 per ok, pt tolerated well, dt void at 1132-1652
[2025-07-02 11:16] LABS: Glucose, Whole Blood 255 mg/dL (60-115)
--- NOTE | 2025-07-02 11:22 | P.PNIM_ITS ---
Subjective Subjective Date of Service: 07/02/25 Interval History: f/u on sycopal episode, concern for seizure and stroke, stroke ruled out, Physical Exam 2 Vital Signs: Vital Signs: Last Vital Signs Temp 97.5 F 07/02/25 07:46 Pulse 82 07/02/25 07:46 Resp 18 07/02/25 07:46 BP 161/70 H 07/02/25 07:46 Pulse Ox 97 07/02/25 07:46 O2 Del Method Room Air 07/02/25 07:46 BMI result Body Mass Index 32.2 Const: Other: General: AO X 3, no acute distress Resp: CTA bilateral CVS: S1,S2,RRR GI: +BS, NT, no distention Skin: No rash Neuro: motor grossly intact Psych: appropriate affect Objective Data Active Medications Acetaminophen (Acetaminophen 325 Mg Tablet) 650 mg PO Q6H PRN PRN Reason: Pain, Mild 1-3,fever,headache Albuterol Sulfate (Albuterol Sulfate 90 Mcg 8 Gm Inhaler) 2 puff INHALE Q4H PRN PRN Reason: Wheezing Aspirin (Aspirin Enteric Coated 81 Mg Tablet.Dr) 81 mg PO DAILY [facility] Last Admin: 07/02/25 08:48 Dose: 81 mg Documented By: BRIDGETTE Atorvastatin Calcium (Atorvastatin Calcium 80 Mg Tablet) 80 mg PO DAILY [facility] Last Admin: 07/02/25 09:34 Dose: 80 mg Documented By: BRIDGETTE Bupropion HCl (Bupropion Hcl Xl 150 Mg Tab.Er.24h) 150 mg PO DAILY [facility] Last Admin: 07/02/25 09:30 Dose: 150 mg Documented By: BRIDGETTE Calcium Carbonate (Calcium Carbonate 750 Mg Tab.Chew) 750 mg PO Q4H PRN PRN Reason: Heartburn Clonazepam (Clonazepam 1 Mg Tablet) 1 mg PO TID PRN PRN Reason: Anxiety Dextrose (Dextrose 50 % 25 Gm/50 Ml Syringe) 25 gm IVPUSH Q15M PRN; Protocol PRN Reason: per Hypoglycemia Standing Ord. Doxepin HCl (Doxepin Hcl 25 Mg Capsule) 100 mg PO BEDTIME PRN PRN Reason: Sleep Enoxaparin Sodium (Enoxaparin Sodium 40 Mg/0.4 Ml Syringe) 40 mg SUBCUT Q24H [facility] Last Admin: 07/02/25 08:49 Dose: 40 mg Documented By: BRIDGETTE Fluticasone Propionate (Fluticasone Propionate Nasal 16 Gm [place]) 2 spray NOSTRIL-B BID PRN PRN Reason: Allergic Symptoms Fluticasone/Vilanterol (Fluticasone/Vilanterol 200/25 Blst.W.Dev) 1 puff INHALE RDAILY [facility] Gabapentin (Gabapentin 400 Mg Capsule) 800 mg PO TID [facility] Last Admin: 07/02/25 09:31 Dose: 800 mg Documented By: BRIDGETTE Glucose (Glucose Gel 15 Gm Gel..Gram.) 15 gm PO Q15M PRN; Protocol PRN Reason: per Hypoglycemia Standing Ord. Lactated Ringer's (Lr) 1,000 mls @ 100 mls/hr IVCONT .Q10H [facility] Insulin Glargine (Insulin Glargine,Hum.Rec.Anlog 100 Unit/Ml 10 Ml Vial) 10 unit SUBCUT BEDTIME [facility] Last Admin: 07/01/25 22:03 Dose: 10 unit Documented By: DAVID Insulin Human Lispro (Insulin Lispro 100 Unit/Ml 3 Ml Vial) 0 unit SUBCUT QIDACHS [facility]; Protocol Last Admin: 07/02/25 08:48 Dose: 6 unit Documented By: BRIDGETTE Lisinopril (Lisinopril 20 Mg Tablet) 20 mg PO DAILY [facility]; Protocol Last Admin: 07/02/25 09:31 Dose: 20 mg Documented By: BRIDGETTE Loratadine (Loratadine 10 Mg Tablet) 10 mg PO DAILY [facility] Last Admin: 07/02/25 09:31 Dose: 10 mg Documented By: BRIDGETTE Magnesium Hydroxide (Milk Of Magnesia 30 Ml Oral.Susp) 30 ml PO DAILY PRN PRN Reason: Constipation Magnesium Oxide (Magnesium Oxide 400 Mg Tablet) 400 mg PO BIDPC [facility] Last Admin: 07/02/25 08:48 Dose: 400 mg Documented By: BRIDGETTE Melatonin (Melatonin 3 Mg Tablet) 6 mg PO BEDTIME PRN PRN Reason: Insomnia Mirtazapine (Mirtazapine 30 Mg Tablet) 30 mg PO BEDTIME [facility] Multivitamins/Vitamin C (Multivitamin Tablet) 1 tab PO DAILY [facility] Last Admin: 07/02/25 09:32 Dose: 1 tab Documented By: HO.PHANLYM Non-Formulary Medication (Deutetrabenazine [Austedo]) 6 mg PO BID [facility] Omeprazole (Omeprazole 20 Mg Capsule.Dr) 20 mg PO DAILY@0630 [facility] Quetiapine Fumarate (Quetiapine Fumarate 300 Mg Tablet) 600 mg PO BEDTIME [facility] Ropinirole HCl (Ropinirole Hcl 0.25 Mg Tablet) 0.25 mg PO BEDTIME [facility] Sodium Chloride (0.9 % Sodium Chloride Flush 3 Ml Syringe) 3 ml IVFLUSH QSHIFT [facility] Last Admin: 07/02/25 08:53 Dose: 3 ml Documented By: ADNLYM Labs 07/01/25 05:23 07/01/25 05:23 Labs: Laboratory Results - last 24 hr 07/01/25 07/01/25 07/01/25 05:23 13:58 16:16 Hold Purple Top POC Glucose 250 H 235 H Magnesium 1.3 L* Triglycerides Cholesterol LDL Cholesterol, Calc HDL Cholesterol 07/01/25 07/02/25 07/02/25 19:35 02:28 06:50 Hold Purple Top SEE NOTE POC Glucose 237 H 242 H Magnesium Triglycerides 319 H Cholesterol 182 LDL Cholesterol, Calc 87 HDL Cholesterol 32 L 07/02/25 07/02/25 07:21 11:10 Hold Purple Top POC Glucose 251 H 255 H Magnesium Triglycerides Cholesterol LDL Cholesterol, Calc HDL Cholesterol Microbiology Microbiology Results: Microbiology 06/30/25 22:45 Blood Culture - Preliminary Blood - Venous No growth after 24 hours. 06/30/25 22:45 Blood Culture - Preliminary Blood - Venous No growth after 24 hours. Assessment and Plan (1) Cocaine abuse: Status: Acute (2) T2DM (type 2 diabetes mellitus): Status: Acute (3) Syncope: Status: Acute Plan 54-year-old female with a history of HTN, HLD, arthritis, chronic back pain, diabetes, fibromyalgia, and MALLIKA, presenting after a fall. Fall/Syncope Concern for cocaine-related event; seizure not excluded, especially given elevated CPK. Hydrated with IV fluids. Neurology recommends EEG. Advised to avoid driving per [place] law for syncope/seizure. LUE Weakness Likely due to prolonged lying on the floor. NIH Stroke Scale 4 in ED; no evidence of stroke on CT/MRI. Evaluated by Neurology. PT recommends STR. Possible Sepsis No clear signs of infection. Received ceftriaxone and IV fluids. Monitor fever curve; holding antibiotics for now. Elevated CPK/Mild Rhabdomyolysis Possibly related to cocaine use or seizure. IVF and repeat level Diabetes Insulin sliding scale plus insulin glargine (Lantus). DVT Prophylaxis Enoxaparin (Lovenox). Code Status Full code. Quality Stroke Does the patient have a stroke diagnosis?: No VTE Prior VTE?: No VTE Risk Level:: Medical - moderate - high VTE Device Contraindication: Treatment Not Indicated VTE Drug Contraindication: N/A - Med Ordered
[2025-07-02] MEDS: Lactated Ringers 1,000 ML 100 ML IVCONT ×2 (11:44→20:48)
--- NOTE | 2025-07-02 11:55 | MHC.CM.PN ---
Addendum entered by Milli Rios 07/02/25 13:33: There are no bed offers from facilities in the [place] area. CM met with Patient, her Sister, and her Mother and Patient is now agreeable to expand the search beyond [place]. CM will follow. Original Note: IMM was addressed with Patient. 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 PT is recommending STR VS Acute; Patient is only agreeable to facilities in [place]. CM has initiated and will follow for dc planning. PCP is Dr. Sue and [employer] will transport if dc'd to home([address] [facility] [address] in [place]).
--- NOTE | 2025-07-02 12:24 | HO.WOUND ---
Wound Consult: Initial 54 yr old female admitted to [facility] on 07/01/25- See progress notes and H&P for detailed history. Wound consult placed for upper extremity abrasions. Patient agreeable to assessment and photo documentation. Per notes, patient with approximately 12H downtime, patient found down on left side in bathroom by EMT. Patient with multiple bruises and superficial abrasions noted. Wounds appear to be bruising and abrasions vs pressure injuries, however pressure injuries sustained from periods of prolonged down time can show 48-72 hours after injury and evolve over several days - monitor for changes. Left Elbow Etiology: abrasion Measurements: 1cm x 1cm x 0.1cm Wound Bed: moist pink Drainage / Odor: scant serous Edges: ? open Amy wound: ? No Induration, Fluctuance or Warmth noted Goals of Treatment: ? xeroform/foam Left shoulder- diffuse purple/yellow bruise Right lateral ankle - intact dry scab - appears to be abrasion vs pressure Right elbow- intact dry scab - abrasion Recommendations: 1. Turn and Reposition every 2 hours and as needed for patient comfort. Use pillows or wedges to support off loading positions. 2. Off Load all bony prominences with use of pillows and heel boots if needed. Apply Preventative foams where needed. 3. Monitor for incontinence and moisture control, use barrier creams when needed for prevention and treatment. 4. Provide adequate and supplemental nutrition. 5. Order or Continue low air loss mattress. 6. When applicable maintain blood glucose levels per Providers order. left elbow: cleanse with saline, apply xeroform, cover with foam, change daily and PRN Re-consult wound care Nurse for wound deterioration or wound changes.
[2025-07-02 16:42] LABS: Glucose, Whole Blood 233 mg/dL (60-115)
--- NOTE | 2025-07-02 17:23 | P.EN_ITS ---
Event Note Date of Service: 07/02/25 Event Note: Addiction consult placed for patient r/t concern of cocaine use and current health issues Seen by tow motor operator. patient denied substance use, and declined further intervention or resources see side seam tender note for additional details Time Spent With Patient Time: Total time managing care of this patient today ____ minutes.
--- NOTE | 2025-07-02 17:23 | PM.EVENT ---
Event Note Date of Service: 07/02/25 Event Note: Addiction consult placed for patient r/t concern of cocaine use and current health issues Seen by operational communication chief. patient denied substance use, and declined further intervention or resources see tin recovery worker note for additional details Time Spent With Patient Time: Total time managing care of this patient today ____ minutes.
[2025-07-02 20:04] LABS: Glucose, Whole Blood 288 mg/dL (60-115)
[2025-07-02] MEDS: Insulin Glargine,Hum.rec.anlog 100 UNIT/ML 10 ML VIAL 10 UNIT SUBCUT (20:44)
[2025-07-03 02:57] VITALS: BP 152/66; PULSE 82; RESP 20; TEMP 36.4; O2SAT 93
[2025-07-03] MEDS: Lactated Ringers 1,000 ML 100 ML IVCONT (06:43)
[2025-07-03 07:19] VITALS: BP 141/61; PULSE 83; RESP 16; O2SAT 94
[2025-07-03] MEDS: Fluticasone/Vilanterol 200/25 BLST.W.DEV 1 PUFF INHALE (07:25)
[2025-07-03 07:28] VITALS: PULSE 80; RESP 16
[2025-07-03 07:31] LABS: Glucose, Whole Blood 239 mg/dL (60-115)
[2025-07-03] MEDS: Aspirin Enteric Coated 81 MG TABLET.DR PO (08:43)
[2025-07-03] MEDS: buPROPion HCl XL 150 MG TAB.ER.24H PO (08:43)
[2025-07-03 11:00] LABS: Glucose, Whole Blood 325 mg/dL (60-115)
[2025-07-03 11:23] VITALS: BP 154/68; PULSE 81; RESP 20; TEMP 36.1; O2SAT 97
--- NOTE | 2025-07-03 13:44 | MHC.CM.PN ---
CM met with Patient. The only accepting facility for STR is [facility]. Patient wants to go home to her Mother's apartment @ [address] in [place], with VNA instead. CM awaits MD's response regarding a dc to home rather than SNF.
[2025-07-03 15:19] LABS: Anion Gap 10 (12-20); Blood Urea Nitrogen 6 mg/dL (9-16); Calcium 8.7 mg/dL (8.4-10.2); Carbon Dioxide 29 mmol/L (22-29); Chloride 104 mmol/L (96-108); Creatinine Clr Calc Pharmacy 84.7; Estimated Glomerular Filt Rate > 60; Potassium 4.3 mmol/L (3.3-5.1); Sodium 139 mmol/L (135-145)
--- NOTE | 2025-07-03 15:29 | P.DS_ITS ---
DS: Providers Provider Date of Service: 07/03/25 Date of admission: 07/01/25 00:29 Date of discharge: 07/03/25 Primary care physician: Brenda Ojeda MD Consults: 07/01/25 00:30 Consult to Neurology Routine Consulting Provider: Maxine Cardenas Reason for consultation: lue weakess 07/01/25 15:58 Consult to Wound Care Routine Consulting Provider: [facility] Wound Care Management Reason for consultation: Abrasions to bilateral upper extremities 07/01/25 16:01 Addiction Medicine Provider Routine Consulting Provider: Addiction Covering Reason for consultation: pt denies drug use, tox positive for cocaine DS: Diagnosis Discharge Diagnosis (1) Cocaine abuse: Status: Acute (2) T2DM (type 2 diabetes mellitus): Status: Acute (3) Syncope: Status: Acute DS: Summary Hospital Course Hospital Course: 54-year-old female with a history of HTN, HLD, arthritis, chronic back pain, diabetes, fibromyalgia, and MALLIKA, presenting after a fall, admitted for workup of syncopal event and traumatic rhabdomyolysis in the setting of cocaine abuse. Fall/Syncope Concern for cocaine-related event; seizure not excluded, especially given elevated CPK. Hydrated with IV fluids completed CK currently around 400. Neurology recommends EEG; performed 07/02; negative for seizure activity - positive for generalized slowing. Advised to avoid driving per [place] law for syncope/seizure. Elevated CPK/Mild Traumatic Rhabdomyolysis Possibly related to cocaine use, seizure or fall. IVF was administered CK reduced to around 400 Encouraged PO intake of fluids (water) and to monitor urine output LUE Weakness Likely due to prolonged lying on the floor. NIH Stroke Scale 4 in ED; no evidence of stroke on CT/MRI. Evaluated by Neurology. T recommends STR; patient refusing - opting to be discharge to her mother's house and will receive VNA services there. Status at Discharge Cognitive/behavioral status at discharge: A&O x4 Functional status at discharge: independent ambulation Overall status at discharge: patient is back to baseline Time Attestation Total time managing care of this patient today: 35 mintues. Discharge Coordination Time (in mins): 35 Quality: Safe Use of Opioids Does Pt have an Active Cancer Diagnosis on the Problem List?: No Quality: Stroke Does the patient have a stroke diagnosis?: No Physical Exam Exam: Exam: General: A&O x3, oriented to time place person and situation, comfortable, no pain Cardiac: S1, S2 auscultated with no S3/4, no MRG. Well perfused. Respiratory: Normal breath sounds auscultated throughout all lung zones, without wheezing, rales. Normal rate. GI/ : No abdominal pain on palpation, no masses or distentions. MSK: Normal ambulation without pain at bony prominences or musculature Neurological: Normal neurological examination on overview, without obvious CN II-XII abnormalities. Vital Signs: Vital Signs: Last Vital Signs Temp 97.0 F 07/03/25 11:23 Pulse 81 07/03/25 11:23 Resp 20 07/03/25 11:23 BP 154/68 H 07/03/25 11:23 Pulse Ox 97 07/03/25 11:23 O2 Del Method Room Air 07/03/25 11:23 BMI result Body Mass Index 32.2 DS: Data Data Completed and Pending Labs on day of discharge: Laboratory Results - last 24 hr 07/02/25 07/02/25 07/03/25 15:55 20:00 07:20 Sodium Potassium Chloride Carbon Dioxide Anion Gap BUN Creatinine Estim Creat Clear Calc Estimated GFR POC Glucose 233 H 288 H 239 H Random Glucose Calcium Total Creatine Kinase 07/03/25 07/03/25 10:56 14:48 Sodium 139 Potassium 4.3 Chloride 104 Carbon Dioxide 29 Anion Gap 10 L BUN 6 L Creatinine 0.84 Estim Creat Clear Calc 84.7 Estimated GFR > 60 POC Glucose 325 H Random Glucose 285 H Calcium 8.7 Total Creatine Kinase 497 H Preliminary micro results at discharge 06/30/25 22:45 Blood Culture - Preliminary Blood - Venous No growth after 48 hours. 06/30/25 22:45 Blood Culture - Preliminary Blood - Venous No growth after 48 hours. Discharge Plan Discharge Anticipated Discharge Date/Time: 07/03/25 15:34 Patient Disposition: Home Health Service Discharge Diagnosis: Cocaine abuse c/b fall and mild traumatic rhabdomyolysis with hyperkalemia Referrals: Brenda Tovar MD [Primary Care Provider, Internal Medicine] - 1 Week Discharge Medications: No Action fluticasone propion-salmeterol 232-14 mcg/actuation aerosol powdr breath activated 1 inh PO BID Qty: 1 6RF albuterol sulfate 90 mcg/actuation HFA aerosol inhaler 2 puff PO Q4H PRN (Reason: Wheezing) Patient Comments: Patient claims she ran out of albuterol inhaler but would be using it as prescribed if she still had it. Patient could not say when she ran out. gabapentin 800 mg tablet 1 tab PO TID ropinirole 0.25 mg tablet 1 tab PO BEDTIME atorvastatin 80 mg tablet 80 mg PO DAILY lisinopril 20 mg tablet 20 mg PO DAILY metformin 500 mg tablet extended release 24 hr 1,000 mg PO BID omeprazole 20 mg capsule,delayed release(DR/EC) 20 mg PO DAILY@0630 fluticasone propionate 50 mcg/actuation spray,suspension 2 spray intranasal BID PRN (Reason: Allergic Symptoms) Fiasp U-100 Insulin 100 unit/mL solution See Rx Instructions .ROUTE .COMPLEX Rx Instructions: to be used in patient pump, up to 120 units daily clonazepam 1 mg tablet 1 mg PO TID PRN (Reason: anxiety) Austedo 6 mg tablet 6 mg PO BID Mounjaro 7.5 mg/0.5 mL pen injector 7.5 mg subcut WE cetirizine 10 mg tablet 10 mg PO QAM Certavite-Antioxidant 18-400 mg-mcg tablet 1 tab PO QAM doxepin 100 mg Capsule 100 mg PO BEDTIME PRN (Reason: Sleep) (DME) V-GO 20 Device MISCELLANEOUS Rx Instructions: PATIENT USES INSULIN PUMP WITH FIASP INSULIN (DME) blood-glucose meter Kit See Rx Instructions .ROUTE .MEDSUPPLY Qty: 1 Rx Instructions: As directed aspirin 81 mg tablet,delayed release (DR/EC) 81 mg PO DAILY (DME) FreeStyle Lite Strips Strip See Rx Instructions .ROUTE .MEDSUPPLY Qty: 10 Rx Instructions: As directed (DME) lancets 28 gauge misc See Rx Instructions topical TID Qty: 100 Rx Instructions: As directed (DME) pen needle, diabetic 31 gauge x 3/16 needle See Rx Instructions .ROUTE .MEDSUPPLY Qty: 50 Rx Instructions: As directed (DME) lancets [TRUEplus Lancets] 33 gauge misc See Rx Instructions .ROUTE .MEDSUPPLY Qty: 100 Rx Instructions: As directed (DME) Omnipod Dash Pods (Gen 4) Cartridge See Rx Instructions subcut .MEDSUPPLY Qty: 5 Rx Instructions: PATIENT USES V-GO INSULIN PUMP quetiapine 300 mg tablet 600 mg PO BEDTIME mirtazapine 30 mg tablet 30 mg PO BEDTIME bupropion HCl 100 mg tablet sustained-release 12 hr 100 mg PO DAILY Discharge Orders: Discharge Order (Routine); Ordered 07/03/25 Ordered By: Taylor Castillo Diet: Advance to usual diet Activity on Discharge: As tolerated Stand Alone Forms: Patient Portal Discharge page Print Language: Stateless Care Plan Goals: As above Health Concerns: As above Plan of Treatment: Would advise against the continuation of cocaine use Engage with VNA services Drink enough water throughout the day -3 large glasses per day at least Follow up with PCP within 1 week of discharge Assessment: Hemodynamically stable for discharge home
--- NOTE | 2025-07-03 15:38 | P.F2F_ITS ---
Service Date Service Date: 07/03/25 Encounter Date of encounter: 07/03/25 Reasons for Services Signs and symptoms assessed: Fall with lower extremity weakness Reason for nursing home: teach disease management Reason for physical therapy: home safety and mobility, therapeutic exercises, restore joint function, gait/transfer training, assess need for DME and ADL training Reason for occupational therapy: home safety and mobility, therapeutic exercises, restore joint function, gait/transfer training, assess need for DME and ADL training Homebound: Leaving the home is medically contraindicated at this time without the asist of a device and/or another person due th the listed conditions above and below. Reason homebound: unsteady gait / fall risk, leg weakness and pain with ambulation Certification: Based on the above findings, I certify that this patient is confined to the home and needs intermittent nursing home care, physical therapy and/or speech therapy, or continues to need occupational therapy. The patient is under my care, and I have initiated the establishment of the plan of care. The patient will be followed by a physician who will periodically review the plan of care. Time Spent With Patient Time: Total time managing care of this patient today 35 minutes.
--- NOTE | 2025-07-03 15:44 | MHC.CM.PN ---
Patient has been medically cleared for dc to home today, with services. [facility] is aware of today's dc; dc summary and face to face have been uploaded into [employer] and faxed to [facility] @ [phone].
--- NOTE | 2025-07-03 17:08 | MHC.SP.ADU ---
Referring provider: Gus Purcell Reason for Referral: Swallow and Cognition evaluation s/p seizure Type of Treatment: 34627 Standardized Cognitive Performance Testing, per hour Date of Plan of Treatment: 07/03/25 Onset of Symptoms/Illness: 06/30/25 Date Treatment Started: 07/03/25 Medical Diagnosis: (1) Cocaine abuse: Status: Acute Primary Speech Language Diagnosis: R41.841 Cognitive communication disorder Secondary Speech Language Diagnosis: R47.1 Dysarthria History Per H & P Note: 54-year-old female with a past medical history of HTN, HLD, arthritis, chronic back pain, diabetes, fibromyalgia, MALLIKA; presented to the hospital today with a chief complaint of fall. Patient reported that she woke up in the bathroom and called for help; subsequently her neighbor called the ambulance and brought her to the hospital for further evaluation. Reports that last thing she remembers was making coffee 16:00 the day before. Denies any chest pain or palpitations. Denies any nausea vomiting or diarrhea. Denies any fevers chills cough or sputum production. Denies any urinary symptoms. Denies any neck pain or back pain. Review of all other systems is negative except mentioned above ER course: Per ER team, patient on presentation noted to be normotensive, afebrile, appears clinically dehydrated; on exam noted to have left upper extremity weakness; has noted speech difficulty which gradually improved. Left upper extremity weakness has also gradually improved. CT head and CT C-spine showed no acute findings; CT angio head and neck showed no LVO. Patient qualified for sepsis. CT chest showed no evidence of pneumonia. Urinalysis negative. Given IV fluids. On labs noted to have potassium of 5.7; sodium 133. Mild hyperglycemia. Not in DKA or HHS. WBC slightly elevated. Given Rocephin. Also mentioned that patient has prior history of polysubstance use; U tox positive for cocaine. Medical History: Lipoma of abdominal wall T2DM (type 2 diabetes mellitus) Arthritis of knee Restless leg syndrome Sleep apnea Gastritis High cholesterol Hypertension Fibromyalgia Arthritis Migraines Diabetes Asthma Medication List: Recent Hospitalizations: No Respiratory Needs: Room Air Patient Orientation: Alert & Oriented x 4 Social History: Employment Status: unknown Highest level of education obtained: 7th grade Current Living Situation: Patient currently lives alone in private residence Past Speech Language Therapy: None Other Therapies Seen in Current Calendar Year: None Swallowing History: Dysphagia Specific: Within Functional Limits Comments: Patient presents with oropharyngeal swallowing function deemed WFL. Patient with no s/sx of penetration/aspiration. Patient tolerating current diet of regular solids, thin liquids. Patient edentulous, encouraged to select softer items from menu. Patient denies any swallowing difficulties or any esophageal s/sx. Recommend CONTINUE regular solids, thin liquids with medications WHOLE with liquids. Recommendations communicated with RN, RD and MD via secure chat. Pre-eval Risk for Aspiration: None Pre-evaluation Dietary Consistencies: Regular Pre-eval Liquid Intake: Thin Pre-eval Medication Intake: Whole with Liquid Assessment Speech Production: Rapid Slurred Clinical Impression: Intact Observations: Patient with mild dysarthria, likely due to dentition. Patient reports baseline. Tests of Cognition: Clinical Impression: Impaired Observations: Patient evaluated using MOCA. Patient scoring 17/30; normal range 26 or greater. Patient with education level of 7th grade; reports not learning how to read/write. She reports that she did not continue school when she moved from [place]. VISUOSPATIAL/EXECUTIVE: 2/5, Patient able to correctly complete trail making, did not copy cube to accuracy, able to draw clock (menominee oblong and incomplete) and place numbers (referring to clock in room), unable to place hands to correct time. NAMIN/3, patient able to name all animals shown MEMORY: first trial- recalled, 2nd trial- 5/5 recalled. ATTENTION: Able to repeat number forwards/backwards. Able to raise hand for letter A with accuracy, unable to complete serial 7 subtraction (was able to complete serial 2 subtraction) LANGUAGE: Unable to repeat sentences verbatim; additions/omissions noted. Able to name 9 words that begin with the letter f. ABSTRACTION: 0/2, patient was on the right track but unable to give concrete category. DELAYED RECALL: 3/5 with no cue, additional 2 with category cue (MIS: ). ORIENTATION: 4/6; incorrect date and day. Able to self-correct date, required logical cues for correct day. Patient with no personal concerns for cognition. Mild-moderate cognitive impairments in areas of visuospatial/executive, attention, language, and abstraction. Recommendation for Speech Therapy: Inpatient Speech Therapy; Follow-up x1 to ensure diet tolerance Recommended Referrals to be Discussed with Primary Care Provider: Patient Education: Completed: Yes Patient/Caregiver Education: Described Results of Evaluation Patient expressed understanding of evaluation Patient agrees with goals and treatment plan Comments/Barriers to Learning: Tower Erector Helper Clinican/Clinical Fellow: No Supervisory Statement: N/A Speech Language Pathologist: Isadora Priest M.A., [facility]-DIRECTOR OF PROFESSIONAL SERVICES
[2025-07-03 17:21] LABS: Glucose, Whole Blood 256 mg/dL (60-115)
== END 2025-07-03 17:46 | disposition home health service (06) | DRG 918 ==
LOC: HO.ED 07-01 00:14 → HO.EDOVER 07-01 00:39 → HO.IMC 07-01 11:28
PROVIDERS: Internal Medicine; Physician Assistant; Admitting Provider Hospitalist; Emergency Provider Emergency Medicine Emergency Medical Services; PCP Internal Medicine; Visit Provider Hospitalist
DX: T40.5X1A Poisoning by cocaine, accidental (unintentional), initial encounter (principal); E87.1 Hypo-osmolality and hyponatremia; T79.6XXA Traumatic ischemia of muscle, initial encounter; W19.XXXA Unspecified fall, initial encounter; F17.210 Nicotine dependence, cigarettes, uncomplicated; F14.10 Cocaine abuse, uncomplicated; M79.7 Fibromyalgia; E86.0 Dehydration; Z71.6 Tobacco abuse counseling; Z79.4 Long term (current) use of insulin; E87.5 Hyperkalemia; R56.9 Unspecified convulsions; Z79.82 Long term (current) use of aspirin; Z79.84 Long term (current) use of oral hypoglycemic drugs; Z79.85 Long-term (current) use of injectable non-insulin antidiabetic drugs; Z79.899 Other long term (current) drug therapy
CPT/HCPCS: 36415; 70450; 70496; 70498; 70551; 71260; 73030; 80048; 80053; 80061; 80307; 81001; 82550; 82947; 83605; 83690; 83735; 84484; 85025; 85610; 87040; 93005; 93306; 94640; 95819; 96125; 97110; 97162; 97166; 97530; 99285; J0613; J0696; J1650; J3475; J7120; Q9967

== ENCOUNTER → 2025-06-30 19:43 | Outpatient (BNV) | payer OTHER, SELFPAY | PROVIDERS: Admitting Provider Hospitalist; Emergency Provider Emergency Medicine Emergency Medical Services; PCP Internal Medicine; Visit Provider Internal Medicine | DX: R00.0 Tachycardia, unspecified (principal) | CPT/HCPCS: 93010 ==

== ENCOUNTER → 2025-06-30 20:23 | Outpatient (BNV) | payer OTHER, SELFPAY | PROVIDERS: Emergency Provider Emergency Medicine Emergency Medical Services; Visit Provider Radiology Diagnostic Radiology | DX: S40.012A Contusion of left shoulder, initial encounter (principal); Z04.3 Encounter for examination and observation following other accident | CPT/HCPCS: 73030 ==

== ENCOUNTER 2025-07-01 00:29 | Outpatient (BNV) | payer OTHER, SELFPAY | END 2025-07-02 09:20 | PROVIDERS: Admitting Provider Hospitalist; Emergency Provider Emergency Medicine Emergency Medical Services; PCP Internal Medicine; Visit Provider Psychiatry & Neurology Neurology | DX: R41.0 Disorientation, unspecified (principal) | CPT/HCPCS: 95819 ==

== ENCOUNTER 2025-07-01 00:29 | Outpatient (BNV) | payer OTHER, SELFPAY | END 2025-07-02 07:00 | PROVIDERS: Admitting Provider Hospitalist; Emergency Provider Emergency Medicine Emergency Medical Services; PCP Internal Medicine; Visit Provider Internal Medicine Cardiovascular Disease | DX: I63.9 Cerebral infarction, unspecified (principal) | CPT/HCPCS: 93306 ==

== ENCOUNTER 2025-07-01 00:29 | Outpatient (BNV) | payer OTHER, SELFPAY | END 2025-07-01 12:50 | PROVIDERS: Admitting Provider Hospitalist; Emergency Provider Emergency Medicine Emergency Medical Services; PCP Internal Medicine; Visit Provider Radiology Diagnostic Radiology | DX: R53.1 Weakness (principal) | CPT/HCPCS: 70551 ==

== ENCOUNTER → 2025-07-01 00:29 | Outpatient (BNV) | payer OTHER, SELFPAY | PROVIDERS: Admitting Provider Hospitalist; Emergency Provider Emergency Medicine Emergency Medical Services; PCP Internal Medicine; Visit Provider Psychiatry & Neurology Neurology | DX: R55 Syncope and collapse (principal) | CPT/HCPCS: 99222 ==

== ENCOUNTER → 2025-07-01 00:29 | Outpatient (BNV) | payer OTHER, SELFPAY | PROVIDERS: Admitting Provider Hospitalist; Emergency Provider Emergency Medicine Emergency Medical Services; PCP Internal Medicine; Visit Provider Internal Medicine | DX: F14.10 Cocaine abuse, uncomplicated (principal); E11.9 Type 2 diabetes mellitus without complications; R55 Syncope and collapse | CPT/HCPCS: 99223; 99232; 99499 ==